=== PATIENT | male | born 1955 | race Caucasian/White ===

== ENCOUNTER 2019-04-19 09:22 | Outpatient (CLI) | payer BC, SELFPAY ==
--- NOTE | 2019-04-19 09:23 | XRR_ITS ---
PROCEDURE INFORMATION: Exam: XR Chest, 2 Views Exam date and time: 04/19/2019 9:50 AM Age: 63 years old Clinical indication: Condition or disease; Other: Copd; Prior surgery; Surgery date: 6+ months; Surgery type: RT lung TECHNIQUE: Imaging protocol: XR of the chest Views: 2 views. COMPARISON: No relevant prior studies available. FINDINGS: Lungs: COPD and interstitial disease. Poorly defined parenchymal density overlying the mid lateral aspect of the right lung. Pleural space: No significant pleural effusion. Heart/Mediastinum: No cardiomegaly. Surgical clips overlying the right suprahilar and hilar regions. Diaphragm: Asymmetric elevation right hemidiaphragm. Vasculature: Ectasia of the thoracic aorta. Bones/joints: Osteopenia, degenerative change, and cervical spine fusion. XR/XR chest 2V* [id number] IMPRESSION: 1. COPD and interstitial disease. 2. Poorly defined parenchymal density overlying the mid lateral aspect of the right lung.
== END 2019-04-19 09:23 | disposition home or self-care (01) ==
PROVIDERS: Family Provider Physician Assistant; PCP Family Medicine; Visit Provider Internal Medicine Critical Care Medicine
DX: J84.9 Interstitial pulmonary disease, unspecified (principal); J44.9 Chronic obstructive pulmonary disease, unspecified
CPT/HCPCS: 71046

== ENCOUNTER 2019-05-11 07:27 | Outpatient (CLI) | payer BC, SELFPAY ==
[2019-05-11 08:23] VITALS: O2SAT 93; O2SAT 95
== END 2019-05-11 07:28 | disposition home or self-care (01) ==
PROVIDERS: Family Provider Family Medicine; PCP Family Medicine; Visit Provider Internal Medicine Critical Care Medicine
DX: J44.9 Chronic obstructive pulmonary disease, unspecified (principal)
CPT/HCPCS: 94060; 94726; 94729; J7611

== ENCOUNTER 2019-06-23 07:27 | Outpatient (CLI) | payer BC, SELFPAY ==
--- NOTE | 2019-06-23 08:00 | MR_ITS ---
WS: [id number] MRI RIGHT SHOULDER NONCONTRAST TECHNIQUE: Sagittal T2, coronal T1, T2 and proton density imaging. Axial gradient PDE imaging. CLINICAL INFORMATION: RIGHT ROTATOR CUFF SPRAIN COMPARISON: None. FINDINGS: Moderate hypertrophic changes at the AC joint. Mild downsloping of the acromion. Subacromial spurring . Narrowing of the subacromial space. High-grade full-thickness tear involving the infraspinatus with retraction to the level of the glenoh umeral joint. No normal infraspinatus fibers visualized distally. Diffuse edema involving the infrasp inatus. Anterior supraspinous fibers and distal tendon are intact. Dorsal supraspinatus fibers demons trate high-grade tear contiguous with the high-grade infraspinatus tear. Normal subscapularis tendon distally which appears intact. Small amount of fluid in the subcoracoid b ursa. Biceps tendon is intact within the bicipital groove. Normal biceps labral anchor. Tendinopathy involving the intra-articular portion of the biceps tendon with T2 signal normality. Glenoid labrum a ppears grossly intact. Degenerative fraying of the glenoid labrum. MR/MR shoulder RT wo con* [id number] IMPRESSION: 1. High-grade full-thickness tear involving the infraspinatus with retraction to the level of the glenohumeral joint. 2. Additional high-grade tear involving the dorsal supraspinatus fibers. Anter ior supraspinatus tendon fibers are intact. 3. Teres minor and subscapularis appear intact 4. Normal biceps tendon in the bicipital groove. 5. Tendinopathy involving the intra-articular biceps tendon. 6. Glenoid labrum appears grossly intact. 7. Advanced degenerative changes involving the AC joint with downsloping of th e acromion and undersurface spurring. Advanced loss of the subacromial space
== END 2019-06-23 07:28 | disposition home or self-care (01) ==
LOC: RADSHAW 07:32
PROVIDERS: Family Provider Family Medicine; PCP Family Medicine; Visit Provider Orthopaedic Surgery
DX: M75.101 Unspecified rotator cuff tear or rupture of right shoulder, not specified as traumatic (principal); M19.011 Primary osteoarthritis, right shoulder
CPT/HCPCS: 73221

== ENCOUNTER 2019-07-02 05:25 | Day surgery (SDC) | payer BC, SELFPAY ==
[2019-07-01 15:02] VITALS: BMI 25.1
[2019-07-02] VITALS (8 sets, daily range): BP systolic 122–139; BP diastolic 81–99; PULSE 53–86; RESP 13–22; TEMP 36.1–36.6; O2SAT 95–99
--- NOTE | 2019-07-02 06:24 | ANES.PREANE2 ---
Pre-Anesthetic Assessment Pre-Anesthetic Assessment: Height/Weight: Height 1.78 m Weight 79.379 kg Preop Diagnosis: Right rotator cuff Proposed Procedure: Operation Date: 07/02/19 07:00 Proposed Procedures p Right Shoulder Arthroscopy with subacromial decompression and other indicated proedures [id number] S43.421A(Right) - Jayden Benavides MD s Rotator Cuff Repair(Right) - Jayden Benavides MD Last intake: Intake Last Liquid Date 07/01/19 Last Liquid Time 18:00 Last Solid Date 07/01/19 Last Solid Time 18:00 Social: Packs per day: 1/2 Pack years: 25 Airway: Dentition: False Additional comments: upper dentures bottoms implants Pulmonary: Pulmonary: COPD Comments: breathing feels good Metabolic: Metabolic: DM Comments: off meds Musc/skel: Musc/skel: Lower Back Pain Comments: nonradiating Anesthetic Plan: ASA status: 3 Anesthesia: General and Regional (specify below) PFSH Anesthesia PFSH: Social History Smoking and tobacco status: current every day smoker cigarettes Packs smoked per day: 0.5 Years cigarettes smoked: 46 [ Other cigarette details: Pt has reduced smoking from 1.5 packs ] Quit status (tobacco): has tried quititng Number of times tried to quit tobacco: 1 Alcohol intake: former Lives independently: Yes Household members: none Housing: House Marital status: Number of children: 3 Number of grandchildren: 4 Highest education level completed: High School Graduate service: No Current occupational status: retired and disabled Pets and animals: Yes 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
[2019-07-02] MEDS: sodium chloride 0.9% 1,000 ML 30 ML IV (06:30)
[2019-07-02] MEDS: midazolam 1 mg/mL INJ 5 ML 5 MG IVP (06:36)
[2019-07-02] MEDS: fentaNYL 50 mcg/mL INJ 2mL 100 MCG IVP (06:36)
--- NOTE | 2019-07-02 06:51 | W.PM.OPSUD ---
Surgery/Procedure H&P Update DATE OF PROCEDURE: July 02, 2019 DATE H&P PERFORMED: 06/29/19 H&P UPDATE INFORMATION: I have reviewed H&P completed within last 30 days and No changes to prior documentation PREOP DIAGNOSIS: Right rotator cuff PRIMARY INDICATION FOR PROCEDURE: Tear right rotator cuff with pain and weakness PLANNED PROCEDURE: Operation Date: 07/02/19 07:00 Proposed Procedures p Right Shoulder Arthroscopy with subacromial decompression and other indicated proedures [id number] S43.421A(Right) - Jayden Benavides MD s Rotator Cuff Repair(Right) - Jayden Benavides MD
--- NOTE | 2019-07-02 06:55 | ANES.PROC ---
Anesthesia Procedures Procedure/Date: 07/02/19 Right innerscalene Block Procedure Narrative: R&B's of right innerscalene block disc'd. Verbal and written consent obtained. Versed 2+1+1+1mg, Fentanyl 50+25+25ug. US utilized to identify right innerscalene space, MOE. Nerve stimulator at 0.8mAMPS. 30cc total volume Ropvicaine 0.5% + Lido 2% with epi in 5cc increments without problems/complications. Nerve Block ^: Nerve Block 1: Main Anesthesia: general anesthesia Time Out Performed: Yes Consent: requested by attending/covering physician, from patient, risks and benefits reviewed and patient agrees to proceed Nerve block location: interscalene Anesthesia monitors applied: pulse oximetry and oxygen Nerve block position: supine Anesthetic Used: lidocaine 2%, ropivicaine 0.5% and with epi Amount of anesthesia used (mL): 30 Ultrasound used to: visualize and ID interscalene groove Nerve Stimulator Used?: Yes Interscalene/Femoral BLK: 2 stimuplex 22 g needle used for position and inplane approach Injection: neg aspiration of heme Patient Tolerated Procedure: well Complications: none
--- NOTE | 2019-07-02 07:46 | SUR.OPER ---
1064 - Pt's significant other notified of surgery start via her cell phone.
--- NOTE | 2019-07-02 08:52 | SUR.OPER ---
0851 - Pt's significant other updated on surgery progress and pt status via her cell phone.
--- NOTE | 2019-07-02 09:17 | P.OP_ITS ---
Operative Report Date of procedure: July 02, 2019 Pre-op Diagnosis: Right rotator cuff Post-op diagnosis: same Post-op Findings: Large tear right rotator cuff involving supraspinatus and infraspinatus, type II acromion Procedure Done: Arthroscopic repair right rotator cuff with bio inductive implant, right subacromial decompression Pathology: none sent Anesthesia: General and Nerve Block (Interscalene) Estimated blood loss (mL): 25 Complications: None Findings: The patient had a large tear of his supraspinatus and infraspinatus tendons with retraction approximately 2 cm overall tendon quality was very good. He had prominent anterior spurring of his acromion and a loose fragment over the anterior acromion possibly a mall os acromiale Condition: stable Disposition: PACU Brief History: The patient is a 63-year-old male who sustained a traumatic tear of his right rotator cuff in October. He had persistent pain and inability to abduct his arm away from his body. MRI confirmed a large rotator cuff tear. 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 He was given 2 g of Ancef and positioned in the lateral position with his right arm initially in 15 pounds of traction. He was prepped and draped the usual fashion and a timeout was performed. The shoulder was initially entered through a posterior portal 2 cm inferior medial to the posterior corner of the acromion a scope cannula and trocar were driven into the glenohumeral joint. The large tear of the rotator cuff was identified. The glenohumeral joint was found to be free of degenerative changes. His biceps tendon appeared healthy and stable in the bicipital groove. The scope was then redirected into the subacromial space and anterior and lateral working portals were fashioned. Extensive bursal tissue was removed with the Ballesteros and Nephew Werewolf probe. The tear involving the supraspinatus and infraspinatus tendon revealed very reasonable remaining margins. With a grasper could be brought to the medial edge of the greater tuberosity. The bursal and articular surface of the rotator cuff were debrided and mobilized. The Ballesteros and Nephew Werewolf probe was used to outline the leading edge of the acromion. A small unstable ossicle of bone was identified, possibly a os acromiale he. Utilizing a 5 5 acromionizer this unstable ossicle of bone was removed and prominent bone removed from the remaining anterior edge. Attention was then focused on the rotator cuff. Utilizing incisor shaver the tuberosity was debrided to trabecular bone. Through a small posterior lateral pole: A 4.5 mm Ballesteros and Nephew Helicoil anchor with Ultratape suture was placed. The first pass suture passer was used to shuttle each limb of Ultratape through the rotator cuff approximately 8 mm from the edge of the tendon and approximately a centimeter apart. 2 additional anchors were placed 1 cm apart passing anteriorly and sutures passed in identical fashion. The sutures from each anchor were secured drawing the medial rotator cuff to the medial debrided bone. Next to the lateral portal 1 suture from the posterior and 1 from the mid dle medial row anchor were grasped. A Ballesteros and Nephew Multifix anchor was placed centrally and laterally and those of sutures secured drawing the more lateral rotator cuff to bone. This was repeated with a second Ballesteros and Nephew Multifix anchor more anteriorly between the second and third medial row anchor. Next to the lateral portal a Ballesteros and Nephew Regeneten patch was passed. It was fixed laterally with 2 bone adiel and anteriorly, posteriorly coming immediately with anchors. The shoulder was irrigated with saline. Portals were closed with 3-0 Prolene. Sterile dressings were applied. The patient was extubated taken recovery in stable condition.
[2019-07-02] MEDS: oxyCODONE-APAP 5-325 mg Tablet 1 TAB PO (09:57)
== END 2019-07-02 11:15 | disposition home or self-care (01) ==
PROVIDERS: Family Provider Family Medicine; PCP Family Medicine; Visit Provider Orthopaedic Surgery
PROC: (CPT 29805; principal; 2019-07-02 07:00)
PROC: (CPT 29826; 2019-07-02 07:00)
DX: M75.101 Unspecified rotator cuff tear or rupture of right shoulder, not specified as traumatic (principal); F17.210 Nicotine dependence, cigarettes, uncomplicated; J44.9 Chronic obstructive pulmonary disease, unspecified; E11.9 Type 2 diabetes mellitus without complications; Z82.49 Family history of ischemic heart disease and other diseases of the circulatory system; Z83.3 Family history of diabetes mellitus
CPT/HCPCS: 29826; 29827; 12345; 96374; 96375; C1713; J0690; J2001; J2250; J2370; J2405; J2704; J2795; J3010; J3490; J7030

== ENCOUNTER 2019-07-26 22:05 | Emergency (ER) | payer BC, SELFPAY ==
[2019-07-26 22:12] VITALS: BP 140/92; PULSE 86; RESP 20; TEMP 36.9; O2SAT 97; BMI 25.1
[2019-07-26 22:21] VITALS: BP 140/92; PULSE 94; RESP 18; O2SAT 95
--- NOTE | 2019-07-26 22:30 | XRR_ITS ---
PROCEDURE INFORMATION: Exam: XR Chest, 1 View Exam date and time: 07/26/2019 10:45 PM Age: 64 years old Clinical indication: Shortness of breath; Additional info: SOB TECHNIQUE: Imaging protocol: XR of the chest Views: 1 view. COMPARISON: CR XR chest 2V* [id number] 04/19/2019 9:44 AM FINDINGS: Lungs: Bibasilar atelectasis versus minimal infiltrate. Pleural space: Unremarkable. No pleural effusion. No pneumothorax. Heart/Mediastinum: Unremarkable. No cardiomegaly. Bones/joints: Unremarkable. XR/XR chest 1V portable [id number] IMPRESSION: Bibasilar atelectasis versus minimal infiltrate.
--- NOTE | 2019-07-26 22:30 | ECG_ITS ---
Measurements Intervals [place] Rate: 85 P: -40 ID: [id number] QRS: -1 QRSD: 87 T: 5 QT: 337 QTc: 403 SINUS RHYTHM WITH OCCASIONAL VENTRICULAR PREMATURE COMPLEXES POSSIBLE RIGHT VENTRICULAR CONDUCTION DELAY [RSR (QR) IN V1/V2] MODERATE ST DEPRESSION [0.05+ mV ST DEPRESSION] Compared to ECG 01/19/2018 09:55:33 Ventricular premature complex(es) now present ST (T wave) deviation now present Electronically Signed On 07-27-2019 10:54:13 CDT by Kassidy Pedroza M.D. [id number]
--- NOTE | 2019-07-26 22:31 | ED_ITS ---
HPI - SOB/Dyspnea General: Chief Complaint: Shortness of Breath/Dyspnea Stated Complaint: sob Time Seen by Provider: 07/26/19 22:06 Source: patient Mode of arrival: ambulatory Limitations: no limitations History of Present Illness: HPI Narrative: 64-year-old male who has a history of asthma states he has had coughing over the last 4 days causing worsening shortness of breath. Patient states he ran out of his Spiriva this morning. He denies any fever or chest pain. He states that he has been under stress due to issues with his girlfriend and has been smoking more as well. He did have recent rotator cuff surgery 4 weeks ago. MD elicited complaint: shortness of breath and cough Pertinent past history: asthma Onset (ago): day(s) Timing: intermittent Severity: moderate Exacerbating factors: nothing Relieving factors: bronchodilators Known history of: asthma Associated symptoms: Deny abdominal pain, chest pain, fever(s), nausea or vomiting Review of Systems Const: Denies: fever, chills, body aches or change in appetite Eyes: Denies: blurry vision or eye discomfort ENMT: Denies: throat pain or dental pain Card: Denies: chest pain Resp: Reports: shortness of breath and wheezing GI: Denies: abdominal pain, nausea, vomiting or diarrhea : Denies: painful urination Musc: Denies: neck pain or back pain Skin/Breast: Denies: rash Neuro: Denies: headache Psych: Denies: depression Jamari/Lymph: Denies: easy bruising All/Imm: Denies: hives PFSH ED PFSH: Medical History COPD (chronic obstructive pulmonary disease) Diabetes Tobacco abuse Surgical History H/O neck surgery H/O: vasectomy History of ankle surgery History of dental surgery History of facial surgery History of lung biopsy S/P lobectomy of lung Family History Father Cancer Hypertension Mother Diabetes Brother Diabetes Sister Diabetes Father Cancer Prostate Social History Smoking and tobacco status: light tobacco smoker cigarettes Packs smoked per day: 0.5 Years cigarettes smoked: 46 [ Other cigarette details: Pt has reduced smoking from 1.5 packs ] Quit status (tobacco): has tried quititng Number of times tried to quit tobacco: 1 Alcohol intake: former Lives independently: Yes Household members: none Housing: House Marital status: Number of children: 3 Number of grandchildren: 4 Highest education level completed: High School Graduate service: No Current occupational status: retired and disabled Pets and animals: Yes 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 History of recent travel: No Leisure activites: hunting and fishing Current gender identity: Male Dian/Buddhist: Advent Physical Exam Const: COMMON NORMALS: no apparent distress, oriented x3 and healthy appearing HENMT: COMMON NORMALS: normocephalic and head/scalp atraumatic HEAD & SCALP: normocephalic and atraumatic Eye: COMMON NORMALS: PERRL and EOMs intact bilaterally PUPIL: Yes PERRL Neck/C-Spine: COMMON NORMALS: full ROM and supple Chest: COMMONS NORMALS: inspection of chest normal and palpation of chest normal Resp: COMMON NORMALS: normal respiratory effort, no retractions, no use of accessory muscles and clear to auscultation bilaterally AUSCULTATION: clear to auscultation bilaterally and wheezes Cardio: COMMON NORMALS: regular rate, regular rhythm and no murmurs RATE: regular rate RHYTHM: regular rhythm GI: COMMON NORMALS: normal to inspection, nondistended, normoactive bowel sounds, soft to palpation, non-tender and no masses PALPATION: Yes soft Extremity: COMMON NORMALS: normal to inspection and full ROM Neuro: COMMON NORMALS: oriented x3, moves all extremities and no focal motor deficits Psych: COMMON NORMALS: mental status grossly normal, thought process normal and cooperative THOUGHT PROCESS: normal thought process Skin: COMMON NORMALS: no rashes or lesions noted and no wounds GENERAL SKIN EXAM: no rashes or lesions noted Course Vital Signs: Vital signs: Vital Signs Temperature 98.5 F 07/26/19 22:12 Pulse Rate 86 07/26/19 23:30 Respiratory Rate 16 07/26/19 23:30 Blood Pressure 127/84 07/26/19 23:30 Pulse Oximetry 95 07/26/19 23:30 MDM - SOB/Dyspnea MDM Narrative: Medical decision making narrative: Patient presents here with cough along with dyspnea likely bronchitis and possible pneumonia. Will refill his Spiriva and prescribe him albuterol along with doxycycline. Patient has no signs of cardiac cause or pulmonary embolism. Patient is stable for discharge and is to follow-up primary care doctor in 3 to 5 days and return to the ER if worsening. He understands and agrees to plan. Lab Data: Labs: Lab Results 07/26/19 07/26/19 Range/Units 23:30 23:30 WBC 8.9 (4.0-10.0) 10^3/ uL RBC 4.88 (4.1-5.3) 10^6/u L Hgb 13.5 (11.7-16.6) g/dL Hct 41.8 L (42.0-52.0) % MCV 85.7 (80-94) fL MCH 27.7 L (28.0-34.0) pg MCHC 32.3 (30.0-36.0) g/dL RDW 13.5 (12.1-15.1) % Plt Count 186 (130-400) 10^3/c mm MPV 8.9 (7.4-10.4) fL Neut % (Auto) 52.3 % Lymph % (Auto) 37.1 % Putnam % (Auto) 9.8 % Eos % (Auto) 0.3 % Baso % (Auto) 0.3 % Neut # (Auto) 4.6 (1.8-7.7) 10^3/u L Lymph # (Auto) 3.3 (0.8-4.8) 10^3/u L [place]nam # (Auto) 0.9 (0.2-0.9) 10^3/u L Eos # (Auto) 0.0 (0.0-0.8) 10^3/u L Baso # (Auto) 0.0 (0.0-0.1) 10^3/u L Nucleated RBC % (a uto) 0 % Nucleated RBCs # 0.0 /100WBC Sodium 132 L (136-145) mmol/L Potassium 4.6 (3.5-5.1) mmol/L Chloride 99 (98-107) mmol/L Carbon Dioxide 23 (22-29) mmol/L Anion Gap 14.6 (5-19) BUN 18 (8-23) mg/dL Creatinine 0.6 L (0.7-1.2) mg/dL GFR Calculation 136.5 H (90-130) mL/min Glucose 122 H (65-115) mg/dL Calculated Osmolal ity 272 L (285-295) mOsm/k g Calcium 9.4 (8.5-10.5) mg/dL NT-Pro-B Natriuret Pep 58 (0-125) pg/mL Imaging Data^: CXR: Radiologist's impression: [address] [address] XRay Report Signed Patient: Gregg Babcock Unit #: [id number] : 1955 Age/Sex: 64 / M ADM Date: 07/26/19 Loc: ER Room/Bed: Attending Dr: Ordering Provider/Ordering MD: Kyle Saleh MD Date of Service: 07/26/19 Procedure(s): XR chest 1V portable [id number] Accession Number(s): [id number] Report Number: [id number] PROCEDURE INFORMATION: Exam: XR Chest, 1 View Exam date and time: 07/26/2019 10:45 PM Age: 64 years old Clinical indication: Shortness of breath; Additional info: SOB TECHNIQUE: Imaging protocol: XR of the chest Views: 1 view. COMPARISON: CR XR chest 2V* [id number] 04/19/2019 9:44 AM FINDINGS: Lungs: Bibasilar atelectasis versus minimal infiltrate. Pleural space: Unremarkable. No pleural effusion. No pneumothorax. Heart/Mediastinum: Unremarkable. No cardiomegaly. Bones/joints: Unremarkable. XR/XR chest 1V portable [id number] IMPRESSION: Bibasilar atelectasis versus minimal infiltrate. EKG Data^: EKG 1: Attestation: I personally reviewed and interpreted this EKG as follows: EKG Interpretation Date: 07/26/19 EKG interpretation time: 22:55 Interpretation: nsr hr [address] or t wve abnormalities qrs 87 qtc 380 Discharge Plan Discharge Patient Disposition: Home, Self-Care Clinical Impression: Bronchitis Condition: Stable Prescriptions: New doxycycline hyclate 100 mg capsule 100 mg PO BID 10 Days Qty: 20 RF: 0 Spiriva Respimat 2.5 mcg/actuation mist 2 inh INHALATION DAILY Qty: 4 RF: 0 albuterol sulfate 90 mcg/actuation HFA aerosol inhaler 2 inh INHALATION Q6H PRN (Reason: shortness of breath or wheezing) Qty: 8 RF: 0 Discharge Orders: Discharge Order (Routine); Ordered 07/27/19 Ordered By: Kyle Saleh Referrals: German Oakes MD [Primary Care Provider] - 4-7 days Discharge Diet: Advance as tolerated Discharge Activity: Resume usual activity Patient Instructions: Acute Bronchitis (ED) Discharge Date/Time: 07/27/19 00:26 Coding Level of Care Code ED [employer] Technician for Chg Fwd Exam Comprehensive
[2019-07-26 22:36] VITALS: O2SAT 96
[2019-07-26 23:01] VITALS: PULSE 80; RESP 18; O2SAT 96
[2019-07-26] MEDS: ipratropium-albuterol 3 mL Neb INHALATION (23:01)
[2019-07-26 23:05] VITALS: PULSE 83
--- NOTE | 2019-07-26 23:06 | PC.NURSE ---
care and report given
[2019-07-26 23:30] VITALS: BP 127/84; PULSE 86; RESP 16; O2SAT 95
[2019-07-26 23:40] LABS: Basophils % 0.3 %; Eosinophils % 0.3 %; Hematocrit 41.8 % (42.0-52.0); Hemoglobin 13.5 g/dL (11.7-16.6); Lymphocytes # 3.3 10^3/uL (0.8-4.8); Lymphocytes % 37.1 %; Mean Corpuscular HGB Conc 32.3 g/dL (30.0-36.0); Mean Corpuscular Hemoglobin 27.7 pg (28.0-34.0); Mean Corpuscular Volume 85.7 fL (80-94); Mean Platelet Volume 8.9 fL (7.4-10.4); Monocytes # 0.9 10^3/uL (0.2-0.9); Monocytes % 9.8 %; Neutrophils # 4.6 10^3/uL (1.8-7.7); Neutrophils % 52.3 %; Nucleated Red Blood Cells % 0 %; Platelet Count 186 10^3/cmm (130-400); Red Blood Count 4.88 10^6/uL (4.1-5.3); Red Cell Distribution Width 13.5 % (12.1-15.1); White Blood Count 8.9 10^3/uL (4.0-10.0)
[2019-07-26] MEDS: doxycycline 100 mg Tablet PO (23:59)
[2019-07-27 00:02] LABS: NT Pro B Type Natriuretic Pept 58 pg/mL (0-125)
[2019-07-27 00:12] LABS: Anion Gap 14.6 (5-19); Blood Urea Nitrogen 18 mg/dL (8-23); Calcium 9.4 mg/dL (8.5-10.5); Carbon Dioxide 23 mmol/L (22-29); Chloride 99 mmol/L (98-107); Glomerular Filtration Rate 136.5 mL/min (90-130); Glucose 122 mg/dL (65-115); Osmolality Calculated 272 mOsm/kg (285-295); Potassium 4.6 mmol/L (3.5-5.1); Sodium 132 mmol/L (136-145)
[2019-07-27 00:21] VITALS: BP 136/99; PULSE 92; RESP 18; O2SAT 95
== END 2019-07-27 00:26 | disposition home or self-care (01) ==
PROVIDERS: Emergency Provider Emergency Medicine; Family Provider Family Medicine; PCP Family Medicine
DX: J20.9 Acute bronchitis, unspecified (principal); J43.9 Emphysema, unspecified; E11.9 Type 2 diabetes mellitus without complications; F17.210 Nicotine dependence, cigarettes, uncomplicated
CPT/HCPCS: 12345; 36415; 71045; 80048; 83880; 85025; 93005; 94640; 99283; 99284

== ENCOUNTER 2019-08-17 07:24 | Outpatient (RCR) | payer BC, SELFPAY | END 2019-09-12 23:59 | disposition home or self-care (01) | LOC: SPT 07:24 | PROVIDERS: Family Provider Family Medicine; PCP Family Medicine; Referring Provider Orthopaedic Surgery; Visit Provider Orthopaedic Surgery | DX: Z47.89 Encounter for other orthopedic aftercare (principal); M25.611 Stiffness of right shoulder, not elsewhere classified; M25.511 Pain in right shoulder | CPT/HCPCS: 97110; 97162 ==

== ENCOUNTER 2019-09-13 06:00 | Outpatient (RCR) | payer BC, SELFPAY | END 2019-10-12 23:59 | disposition home or self-care (01) | LOC: SPT 06:00 | PROVIDERS: PCP Family Medicine; Visit Provider Orthopaedic Surgery | DX: Z47.89 Encounter for other orthopedic aftercare (principal); Z98.890 Other specified postprocedural states | CPT/HCPCS: 97110 ==

== ENCOUNTER 2019-10-13 06:00 | Outpatient (RCR) | payer BC, SELFPAY | END 2019-10-21 23:00 | disposition home or self-care (01) | LOC: SPT 06:00 | PROVIDERS: PCP Family Medicine; Visit Provider Orthopaedic Surgery | DX: Z47.89 Encounter for other orthopedic aftercare (principal) | CPT/HCPCS: 97110 ==

== ENCOUNTER 2019-11-19 15:59 | Outpatient (CLI) | payer BC, SELFPAY ==
[2019-11-19 16:34] LABS: D Dimer 0.44 ug/mIFEU (0-0.59)
== END 2019-11-19 16:00 | disposition home or self-care (01) ==
LOC: LAB 16:01
PROVIDERS: PCP Family Medicine; Visit Provider Nurse Practitioner Family
DX: R06.02 Shortness of breath (principal)
CPT/HCPCS: 85378

== ENCOUNTER 2019-11-19 22:06 | Emergency (ER) | payer BC, SELFPAY ==
[2019-11-19 22:40] VITALS: BP 124/84; PULSE 90; RESP 24; TEMP 36.4; O2SAT 98; BMI 25.1
[2019-11-19 22:56] VITALS: BP 135/90; PULSE 79; RESP 20; O2SAT 100
--- NOTE | 2019-11-19 23:28 | XRR_ITS ---
PROCEDURE INFORMATION: Exam: XR Chest, 1 View Exam date and time: 11/20/2019 12:04 AM Age: 64 years old Clinical indication: Shortness of breath; Patient HX: Copd; Additional info: SOB TECHNIQUE: Imaging protocol: XR of the chest Views: 1 view. COMPARISON: CR XR chest 1V portable [id number] 07/26/2019 10:34 PM FINDINGS: Lungs: There are mildly increased peribronchial markings present bilaterally and increased interstitial opacities are seen, findings that could represent bilateral bronchitis and pneumonitis. Some strandy opacities are seen in the lower hemithoraces likely representing atelectasis. Pleural space: Unremarkable. No pleural effusion. No pneumothorax. Heart/Mediastinum: Unremarkable. No cardiomegaly. Bones/joints: Unremarkable. XR/XR chest 1V portable [id number] IMPRESSION: 1. Mildly increased peribronchial markings and interstitial markings could represent bilateral bronchitis and pneumonitis. 2. Strandy opacities in the lower hemithoraces likely represents atelectasis.
--- NOTE | 2019-11-19 23:30 | ECG_ITS ---
[facility] Test Date: 2019-11-19 Pat Name: Gregg Babcock Department: Room: Gender: Male Patient Admitting Representative: : 1955 Requested By: Cuong Rajput Order Number: [id number] Christy MD: Kassidy Pedroza M.D. Measurements Intervals [place] Rate: 78 P: 52 TN: 174 QRS: -11 QRSD: 88 T: 48 QT: 375 QTc: 429 Interpretive Statements SINUS RHYTHM WITH OCCASIONAL VENTRICULAR PREMATURE COMPLEXES POSSIBLE LEFT ATRIAL ENLARGEMENT [-0.1mV P WAVE IN V1/V2] NONSPECIFIC T-WAVE ABNORMALITY Compared to ECG 07/26/2019 22:42:16 T-wave abnormality now present ST (T wave) deviation no longer present Electronically Signed On 11-20-2019 12:42:16 CDT by Kassidy Pedroza M.D. [id number]
[2019-11-19 23:40] VITALS: PULSE 88; RESP 20; O2SAT 96
[2019-11-19] MEDS: ipratropium-albuterol 3 mL Neb INHALATION (23:40)
[2019-11-19 23:45] VITALS: PULSE 86
[2019-11-19 23:48] VITALS: BP 135/90; PULSE 86; RESP 16; O2SAT 99
[2019-11-19 23:53] LABS: ABG PCO2 28.1 mmHg (35-45); ABG PH Result 7.51 (7.35-7.45); Arterial Blood Gas Hematocrit 44.3 % (42-52); Base Excess ABG 0.5 mmol/L (-2.0-2.0); Blood Gas Allen Test Pos; Blood Gas Operator Identificat HARKR; Blood Gas Sample Site Radial, left; Blood Gas Sample Type Arterial; Carboxyhemoglobin 0.6 %THgb (0.4-20.1); HCO3 ABG 22.4 mmol/L (22-26); HGB O2 Sat 98.1 % (95-100); Methemoglobin 0.8 % (0.4-1.5); Oxygen Device ROOM AIR; Total Hemoglobin 14.5 g/dL (14-18)
[2019-11-19 23:57] LABS: Basophils # 0.1 10^3/uL (0.0-0.1); Basophils % 0.5 %; Eosinophils % 0.4 %; Hematocrit 44.2 % (42.0-52.0); Hemoglobin 14.2 g/dL (11.7-16.6); Lymphocytes # 4.4 10^3/uL (0.8-4.8); Lymphocytes % 41.2 %; Mean Corpuscular HGB Conc 32.1 g/dL (30.0-36.0); Mean Corpuscular Volume 84.2 fL (80-94); Mean Platelet Volume 9.1 fL (7.4-10.4); Monocytes # 0.8 10^3/uL (0.2-0.9); Monocytes % 7.5 %; Neutrophils % 49.9 %; Nucleated Red Blood Cells % 0 %; Platelet Count 224 10^3/cmm (130-400); Red Blood Count 5.25 10^6/uL (4.1-5.3); Red Cell Distribution Width 14.9 % (12.1-15.1); White Blood Count 10.6 10^3/uL (4.0-10.0)
[2019-11-20 00:19] LABS: Lactic Sepsis W/Reflex 1.6 mmol/L (0.5-2.2)
[2019-11-20 00:20] LABS: Troponin(5th) Baseline 15 ng/L (0-15)
[2019-11-20 00:29] LABS: Alanine Aminotransferase 23 U/L (0-41); Albumin Level 4.3 g/dL (3.5-5.2); Alkaline Phosphatase 88 IU/L (40-130); Anion Gap 14.8 (5-19); Aspartate Amino Transferase 23 U/L (0-40); Blood Urea Nitrogen 15 mg/dL (8-23); Calcium 9.2 mg/dL (8.5-10.5); Carbon Dioxide 25 mmol/L (22-29); Chloride 101 mmol/L (98-107); Globulin 3.5 g/dL (1.3-4.6); Glomerular Filtration Rate 85.5 mL/min (90-130); Glucose 121 mg/dL (65-115); NT Pro B Type Natriuretic Pept 40 pg/mL (0-125); Osmolality Calculated 280 mOsm/kg (285-295); Potassium 4.8 mmol/L (3.5-5.1); Sodium 136 mmol/L (136-145); Total Bilirubin 0.3 mg/dL (0.15-1.2); Total Protein 7.8 g/dL (6.6-8.7)
--- NOTE | 2019-11-20 00:30 | CTR_ITS ---
PROCEDURE INFORMATION: Exam: CT Angiography Chest With Contrast Exam date and time: 11/20/2019 12:46 AM Age: 64 years old Clinical indication: Shortness of breath; Additional info: SOB TECHNIQUE: Imaging protocol: Computed tomographic angiography of the chest with intravenous contrast. 3D rendering: MIP and/or 3D reconstructed images were created by the technologist. Radiation optimization: All CT scans at this facility use at least one of these dose optimization techniques: automated exposure control; mA and/or kV adjustment per patient size (includes targeted exams where dose is matched to clinical indication); or iterative reconstruction. Contrast material: 654.61; Contrast volume: 95 ml; Contrast route: INTRAVENOUS (IV); COMPARISON: CT chest [facility] [id number] 04/26/2019 2:04 PM RADIATION DOSE METRICS: Total DLP (mGy-cm): 654.61 FINDINGS: Pulmonary arteries: Normal. No pulmonary emboli. Aorta: Unremarkable. No aortic aneurysm. No aortic dissection. Lungs: There is a background of centrilobular and subpleural emphysematous changes. Reticular opacities are seen in the right lung base compatible with pulmonary fibrosis. Some patchy ground-glass opacities are present in the lung bases bilaterally possibly representing pulmonary fibrosis as well although superimposed basilar pneumonitis cannot be entirely excluded. Pleural space: Unremarkable. No pneumothorax. No pleural effusion. Heart: Unremarkable. No cardiomegaly. No pericardial effusion. Lymph nodes: Unremarkable. No enlarged lymph nodes. Bones/joints: There is mild compression of the superior endplate of T6, T11 and L1 vertebral bodies. Soft tissues: Unremarkable. CT/CT angio chest PE [facility] [id number] IMPRESSION: 1. There is no evidence for pulmonary emboli. 2. Background of severe centrilobular and subpleural emphysematous change and bilateral basilar pulmonary fibrosis, right more prominent than left. 3. Subtle patchy ground-glass opacities in the lower hemithoraces could represent pulmonary fibrosis as well although superimposed basilar pneumonitis cannot be excluded. Radiation Dose CTDIVOL = (mGy): DLP = 654.61 (mGy-cm)
[2019-11-20] MEDS: LORazepam 2 mg/mL INJ 1 mL 1 MG IVP (00:46)
[2019-11-20 01:03] VITALS: BP 135/90; PULSE 81; RESP 16; O2SAT 94
[2019-11-20] MEDS: iohexol 350 mg/mL 100 mL Btl IV (01:24)
--- NOTE | 2019-11-20 01:30 | ECG_ITS ---
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 Measurements Intervals [place] Rate: 88 P: 44 [place]: 166 QRS: -20 QRSD: 89 T: 51 QT: 368 QTc: 446 Interpretive Statements SINUS RHYTHM POSSIBLE LEFT ATRIAL ENLARGEMENT [-0.1mV P WAVE IN V1/V2] NONSPECIFIC T-WAVE ABNORMALITY Compared to ECG 11/19/2019 23:45:14 Ventricular premature complex(es) no longer present T-wave abnormality still present Electronically Signed On 11-20-2019 12:50:12 CDT by Kassidy Pedroza M.D. [id number]
[2019-11-20 02:18] VITALS: BP 135/90; PULSE 90; RESP 18; O2SAT 96
[2019-11-20 03:28] VITALS: BP 132/89; PULSE 78; RESP 16; O2SAT 99
--- NOTE | 2019-11-20 04:27 | W.ED.SOB ---
HPI - SOB/Dyspnea General: Chief Complaint: Shortness of Breath/Dyspnea Stated Complaint: ams, sob, Time Seen by Provider: 11/19/19 22:56 History of Present Illness: HPI Narrative: 64-year-old male with a history of COPD. He presents with shortness of breath increasing over the last couple of days. Has had a cough. He has not had fever. He has been using his albuterol some without much improvement. He was seen yesterday at [facility], and had a rapid COVID test, which was negative. MD elicited complaint: shortness of breath Pertinent past history: COPD Onset (ago): day(s) Timing: progressively worsening Severity: moderate Exacerbating factors: exertion and stress Relieving factors: nothing Known history of: COPD Associated symptoms: Reports chest congestion and cough; Deny chest pain, dizziness, fever(s), nausea or palpitations Review of Systems Const: Denies: fever(s) Eyes: Denies: change in vision ENMT: Denies: swelling of lips/tongue, change in hearing, epistaxis or sinus pain Card: Denies: chest pain, palpitations or irregular heart rhythm Resp: Reports: chest congestion GI: Denies: nausea : Denies: difficulty urinating or hematuria Musc: Denies: neck pain, back pain or joint warmth Skin/Breast: Denies: rash, pruritus or erythema Neuro: Denies: headache(s), dizziness or vertigo Psych: Denies: anxiety PFS ED PFSH: Medical History (Updated 11/20/19 @ 03:16 by Cuong Godfrey DO) COPD (chronic obstructive pulmonary disease) Diabetes Tobacco abuse Surgical History H/O neck surgery H/O: vasectomy History of ankle surgery History of dental surgery History of facial surgery History of lung biopsy S/P lobectomy of lung Family History Father Cancer Hypertension Mother Diabetes Brother Diabetes Sister Diabetes Father Cancer Prostate Social History Smoking and tobacco status: light tobacco smoker cigarettes Packs smoked per day: 0.5 Years cigarettes smoked: 46 [ Other cigarette details: Pt has reduced smoking from 1.5 packs ] Quit status (tobacco): has tried quititng Number of times tried to quit tobacco: 1 Alcohol intake: former Lives independently: Yes Household members: none Housing: House Marital status: Number of children: 3 Number of grandchildren: 4 Highest education level completed: High School Graduate service: No Current occupational status: retired and disabled Pets and animals: Yes 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 History of recent travel: No Leisure activites: hunting and fishing Current gender identity: Male 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 Physical Exam Const: GENERAL APPEARANCE: well developed and anxious ORIENTATION/CONSCIOUSNESS: Yes oriented to person, Yes oriented to place and Yes oriented to time HENMT: COMMON NORMALS: normocephalic, external ears normal and Normal external nose present HEAD & SCALP: normocephalic FACE & SINUS: normal facial exam NOSE: Normal external nose present and No nasal discharge present EXTERNAL EAR: Yes external ears normal THROAT: posterior oropharynx normal; no peritonsillar mass Eye: COMMON NORMALS: Equal, round and reactive pupils present, EOMs intact bilaterally and conjunctivae normal EYELID: eyelids normal CONJUNCTIVA: Yes conjunctivae normal PUPIL: Yes Equal, round and reactive pupils present Neck/C-Spine: GENERAL: No tracheal deviation Chest: COMMONS NORMALS: normal inspection of the chest CHEST: No tenderness Resp: COMMON NORMALS: clear to auscultation bilaterally EFFORT & INSPECTION: No tachypneic, No respiratory distress, No retractions, No uses accessory muscles and No tracheal deviation AUSCULTATION: clear to auscultation bilaterally, no rhonchi, no wheezes and lung sounds not diminished Cardio: COMMON NORMALS: regular rate and regular rhythm RATE: regular rate RHYTHM: regular rhythm HEART SOUNDS: no murmurs PERIPHERAL PULSES: radial pulses present GI: INSPECTION: No abdominal distension AUSCULTATION: No Hyperactive bowel sounds present and No Hypoactive bowel sounds present PALPATION: No Guarding due to palpation present (GI) and No Rigid due to palpation PERCUSSION: no dullness to percussion and no tympanic to percussion Neuro: SENSORIUM/ORIENTATION: Yes oriented to person, Yes oriented to place and Yes oriented to time Psych: COMMON NORMALS: mental status grossly normal Skin: COMMON NORMALS: no rashes or lesions noted GENERAL SKIN EXAM: no rashes or lesions noted Course Vital Signs: Vital signs: Vital Signs Temperature 97.6 F 11/19/19 22:40 Pulse Rate 78 11/20/19 03:28 Respiratory Rate 16 11/20/19 03:28 Blood Pressure 132/89 11/20/19 03:28 Pulse Oximetry 99 11/20/19 03:28 MDM - SOB/Dyspnea MDM Narrative: Medical decision making narrative: 64-year-old male with a history of COPD. He presents short of breath. He was COVID tested which was negative, via rapid antigen testing. His chest x-ray was nondiagnostic. His d-dimer earlier in the day was negative. A CTA was performed, given his persistent shortness of breath and near tachycardia. His CT shows a peripheral pneumonitis. Because of this, repeat RNA based coronavirus testing was ordered. He is not overly hypoxic, but he is tachypneic. His blood gas shows mild hyperventilation. He is not required oxygen. He has gotten Solu-Medrol here. He will be treated for bronchitis. He was told to use his albuterol inhaler every 4 hours while awake for the next 48 hours, and he is given steroids and doxycycline. He knows to return for worsening symptoms. Lab Data: Labs: Lab Results 11/19/19 11/19/19 11/19/19 Range/Units 23:37 23:37 23:37 WBC 10.6 H (4.0-10.0) 10^3/ uL RBC 5.25 (4.1-5.3) 10^6/u L Hgb 14.2 (11.7-16.6) g/dL Hct 44.2 (42.0-52.0) % MCV 84.2 (80-94) fL MCH 27.0 L (28.0-34.0) pg MCHC 32.1 (30.0-36.0) g/dL RDW 14.9 (12.1-15.1) % Plt Count 224 (130-400) 10^3/c mm MPV 9.1 (7.4-10.4) fL Neut % (Auto) 49.9 % Lymph % (Auto) 41.2 % Cherry % (Auto) 7.5 % Eos % (Auto) 0.4 % Baso % (Auto) 0.5 % Neut # (Auto) 5.30 (1.8-7.7) 10^3/u L Lymph # (Auto) 4.4 (0.8-4.8) 10^3/u L Cherry # (Auto) 0.8 (0.2-0.9) 10^3/u L Eos # (Auto) 0.0 (0.0-0.8) 10^3/u L Baso # (Auto) 0.1 (0.0-0.1) 10^3/u L Nucleated RBC % (a uto) 0 % Nucleated RBCs # 0.0 /100WBC Specimen Type Sample Site ABG pH (7.35-7.45) ABG pCO2 (35-45) mmHg ABG pO2 (80.0-100.0) mmH g ABG HCO3 (22-26) mmol/L ABG Base Excess (-2.0-2.0) mmol/ L Erickson Test Hematocrit (42-52) % Hgb O2 Saturation (95-100) % Carboxyhemoglobin (0.4-20.1) %THgb Methemoglobin (0.4-1.5) % Total Hemoglobin (14-18) g/dL O2 Delivery Device Manufacturing Engineer ID Sodium 136 (136-145) mmol/L Potassium 4.8 (3.5-5.1) mmol/L Chloride 101 (98-107) mmol/L Carbon Dioxide 25 (22-29) mmol/L Anion Gap 14.8 (5-19) BUN 15 (8-23) mg/dL Creatinine 0.9 (0.7-1.2) mg/dL GFR Calculation 85.5 L (90-130) mL/min Glucose 121 H (65-115) mg/dL Calculated Osmolal ity 280 L (285-295) mOsm/k g Lactic Acid 1.6 (0.5-2.2) mmol/L Calcium 9.2 (8.5-10.5) mg/dL Total Bilirubin 0.3 (0.15-1.2) mg/dL AST 23 (0-40) U/L ALT 23 (0-41) U/L Alkaline Phosphata se 88 (40-130) IU/L Troponin T Baselin e (0-15) ng/L Troponin T 120 Min [place] (0-15) ng/L Delta Troponin T (0-10) ABS# NT-Pro-B Natriuret Pep 40 (0-125) pg/mL Total Protein 7.8 (6.6-8.7) g/dL Albumin 4.3 (3.5-5.2) g/dL Globulin 3.5 (1.3-4.6) g/dL 11/19/19 11/19/19 11/20/19 Range/Units 23:37 23:42 01:40 WBC (4.0-10.0) 10^3/ uL RBC (4.1-5.3) 10^6/u L Hgb (11.7-16.6) g/dL Hct (42.0-52.0) % MCV (80-94) fL MCH (28.0-34.0) pg MCHC (30.0-36.0) g/dL RDW (12.1-15.1) % Plt Count (130-400) 10^3/c mm MPV (7.4-10.4) fL Neut % (Auto) % Lymph % (Auto) % Cherry % (Auto) % Eos % (Auto) % Baso % (Auto) % Neut # (Auto) (1.8-7.7) 10^3/u L Lymph # (Auto) (0.8-4.8) 10^3/u L Cherry # (Auto) (0.2-0.9) 10^3/u L Eos # (Auto) (0.0-0.8) 10^3/u L Baso # (Auto) (0.0-0.1) 10^3/u L Nucleated RBC % (a uto) % Nucleated RBCs # /100WBC Specimen Type Arterial Sample Site Radial, left ABG pH 7.51 H (7.35-7.45) ABG pCO2 28.1 L (35-45) mmHg ABG pO2 129.0 H (80.0-100.0) mmH g ABG HCO3 22.4 (22-26) mmol/L ABG Base Excess 0.5 (-2.0-2.0) mmol/ L Erickson Test Pos Hematocrit 44.3 (42-52) % Hgb O2 Saturation 98.1 (95-100) % Carboxyhemoglobin 0.6 (0.4-20.1) %THgb Methemoglobin 0.8 (0.4-1.5) % Total Hemoglobin 14.5 (14-18) g/dL O2 Delivery Device Room air Manufacturing Engineer ID Harkr Sodium (136-145) mmol/L Potassium (3.5-5.1) mmol/L Chloride (98-107) mmol/L Carbon Dioxide (22-29) mmol/L Anion Gap (5-19) BUN (8-23) mg/dL Creatinine (0.7-1.2) mg/dL GFR Calculation (90-130) mL/min Glucose (65-115) mg/dL Calculated Osmolal ity (285-295) mOsm/k g Lactic Acid (0.5-2.2) mmol/L Calcium (8.5-10.5) mg/dL Total Bilirubin (0.15-1.2) mg/dL AST (0-40) U/L ALT (0-41) U/L Alkaline Phosphata se (40-130) IU/L Troponin T Baselin e 15 (0-15) ng/L Troponin T 120 Min [place] 13.80 (0-15) ng/L Delta Troponin T -1.20 L (0-10) ABS# NT-Pro-B Natriuret Pep (0-125) pg/mL Total Protein (6.6-8.7) g/dL Albumin (3.5-5.2) g/dL Globulin (1.3-4.6) g/dL Discharge Plan Discharge Patient Disposition: Home Clinical Impression: COPD (chronic obstructive pulmonary disease) Qualifiers: COPD type: COPD with acute exacerbation Qualified Code(s): J44.1 - Chronic obstructive pulmonary disease with (acute) exacerbation Condition: Stable Prescriptions: New doxycycline hyclate 100 mg capsule 100 mg PO BID 7 Days Qty: 14 RF: 0 prednisone 20 mg tablet 60 mg PO DAILY Qty: 15 RF: 0 No Action acetaminophen-codeine [Tylenol-Codeine #3] 300-30 mg tablet 1 tab PO Q4H PRN (Reason: pain (scale score 7-10)) 5 Days Qty: 30 RF: 0 Spiriva Respimat 2.5 mcg/actuation mist 2 inh INHALATION DAILY Qty: 4 RF: 0 albuterol sulfate 90 mcg/actuation HFA aerosol inhaler 2 inh INHALATION Q6H PRN (Reason: shortness of breath or wheezing) Qty: 8 RF: 0 Discharge Orders: Discharge Order (Routine); Ordered 11/20/19 Ordered By: Cuong Godfrey Referrals: German Oakes MD [Primary Care Provider] - 4-7 days Discharge Diet: Usual diet Discharge Activity: Increase activity as tolerated Patient Instructions: Chronic Bronchitis (ED) Activity Restrictions/Additional Instructions: Return for worsening shortness of breath despite treatment, fever greater than 100 despite 2-3 doses of antibiotics, other concerning symptoms. Medications as directed. Use your inhaler every 4 hours while awake for the next 48 hours, then as needed. Discharge Date/Time: 11/20/19 03:59 Coding Level of Care Code ED Manager Cath Lab for Chelsea Albert
[2019-11-21 18:41] LABS: Coronavirus Lab Test PTC SEE REPORT
== END 2019-11-20 03:59 | disposition home or self-care (01) ==
PROVIDERS: Emergency Provider Emergency Medicine; PCP Family Medicine
DX: J44.1 Chronic obstructive pulmonary disease with (acute) exacerbation (principal); E11.9 Type 2 diabetes mellitus without complications; F17.210 Nicotine dependence, cigarettes, uncomplicated
CPT/HCPCS: 12345; 36600; 71045; 71275; 80053; 82805; 83605; 83880; 84484; 85025; 87040; 87070; 87205; 87635; 93005; 94640; 96374; 96375; 99283; 99284; J2060; J2930; Q9967

== ENCOUNTER 2019-12-07 10:54 | Outpatient (CLI) | payer BC, SELFPAY ==
--- NOTE | 2019-12-07 10:58 | CT_ITS ---
WS: [id number] LDCT LUNG CANCER SCREENING TECHNIQUE: Noncontrast CT of the chest with coronal and sagittal reformatted images. CLINICAL INFORMATION: NICOTINE DEPENDENCE,CIGARETTES COMPARISON: CT April 26, 2019 and CTA 12/01 DLP: 54.85 mGy.cm DIvol: 1.[address] scans at [facility] use at least one of these dose optimization techniques: automat ed exposure control; mA and/or kV adjustment per patient size (includes targeted exams where dose is matched to clinical indication); or iterative reconstruction. FINDINGS: 5 mm noncalcified nodule left upper lobe. Tiny faint 4 mm subpleural nodule left upper lobe. Fibrosis in the lung apices. A few calcified granulomas.Moderate chronic emphysematous changes with paraseptal emphysema. Interstitial thickening in the lung bases. Scattered areas of fibrosis. No acut e pulmonary infiltrates. No focal pneumonia. No mediastinal or hilar lymphadenopathy. Adrenal glands are normal. Chronic anterior wedging in the mid and lower thoracic spine. CT/CT lung screening [id number] IMPRESSION: LUNG-RADS: 2-Benign Appearance or Behavior FOLLOW UP: 12 Month: Continue annual screening with LDCT
== END 2019-12-07 10:55 | disposition home or self-care (01) ==
LOC: CT 10:55
PROVIDERS: PCP Family Medicine; Visit Provider Family Medicine
DX: Z12.2 Encounter for screening for malignant neoplasm of respiratory organs (principal); F17.210 Nicotine dependence, cigarettes, uncomplicated
CPT/HCPCS: G0297

== ENCOUNTER 2020-03-14 10:25 | Outpatient (CLI) | payer BC, SELFPAY ==
--- NOTE | 2020-03-14 10:30 | XRR_ITS ---
PROCEDURE INFORMATION: Exam: XR Chest, 2 Views Exam date and time: 03/14/2020 10:50 AM Age: 64 years old Clinical indication: Shortness of breath TECHNIQUE: Imaging protocol: XR of the chest Views: 2 views. COMPARISON: CR XR chest 1V portable [id number] 11/19/2019 11:53 PM FINDINGS: Lungs: There is interstitial pulmonary fibrosis which is predominantly in the lung bases and unchanged. No acute pulmonary infiltrates are seen. Pleural space: Unremarkable. No pleural effusion. No pneumothorax. Heart/Mediastinum: The heart is not enlarged. There is mild tortuosity of the aorta. Bones/joints: Unremarkable. XR/XR chest 2V* [id number] IMPRESSION: Stable interstitial fibrosis. No acute chest abnormality.
== END 2020-03-14 10:26 | disposition home or self-care (01) ==
LOC: RAD 10:29
PROVIDERS: PCP Family Medicine; Visit Provider Internal Medicine Critical Care Medicine
DX: J43.9 Emphysema, unspecified (principal); R06.02 Shortness of breath; J84.10 Pulmonary fibrosis, unspecified
CPT/HCPCS: 71046

== ENCOUNTER 2020-04-05 06:49 | Outpatient (CLI) | payer BC, SELFPAY ==
[2020-04-05 07:21] VITALS: BMI 25.8
--- NOTE | 2020-04-05 07:21 | NMCV_ITS ---
NM teodora perf SPECT r/s* [id number] Gregg Babcock Age: 64 Gender: M : 1955 Exam Date: 04/05/2020 08:17 Ordering Phys: Joaquín Mayfield MD Technologist: SHANNON Lambert Exam Location: [facility] Indications: CHEST PAIN STRESS TEST Please see separate stress test report in [facility]any for full findings IMAGE PROTOCOL Rest/Stress 1 Lexiscan Day Radiopharmaceutical Dose (mCi) Administration Site Administered by Rest: Tc-99m 10.6 IV SHANNON Hernandez Sestamibi Stress:Tc-99m IV Sestamibi Rest: 05-Apr-2020 60 Discovery 630 Stress: 05-Apr-2020 30 Discovery 630 0.4mg Lexiscan. Images obtained in supine and prone position. SPECT RESULTS Technical Quality: Excellent Raw Data Analysis: Normal Image Corrections: No attenuation or motion correction applied Summed Stress Score: 0 Summed Rest Score: 2 Summed Difference Score: 0 PERFUSION FINDINGS Patchy areas of decreased tracer uptake were noted in the inferior wall and apical regions. No significant reversibility was noted in these regions. FUNCTIONAL RESULTS (calculated via Gated SPECT) Stress Image LV EF (%): 39 Stress EDV (mL):144 TID: 1.14 Stress ESV (mL):88 FUNCTIONAL FINDINGS: Segmental wall motion analysis revealing diffuse hypokinesia of the left ventricle. IMPRESSIONS #1. Myocardial perfusion imaging revealing patchy areas of slightly decreased persistent tracer uptake in the inferior wall and apical regions, suggestive of myocardial scarring versus attenuation artifact. #2. Diminished LV ejection fraction of 39%. #3. LV wall motion analysis revealed diffuse hypokinesia of the left ventricle. #4. Dilated LV cavity with an LV end-systolic volume of 88 mL #5 Slightly elevated transient ischemic dilatation ratio, may suggest endocardial ischemia. However the positive predictive value of this finding is limited. Clinical correlation is recommended. Compared to the previous study from 01/29/2018, there is worsening of the LV systolic function and more LV cavity dilatation Dr Chelsea Parikh MD [facility] (Electronically Signed) Final Date: 05 April 2020 19:51 S
--- NOTE | 2020-04-05 07:21 | ECG_ITS ---
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 Interpretive Statements NAME OF STUDY: LEXISCAN SESTAMIBI STRESS TEST INDICATION: Chest Pain; Shortness of Breath, PROCEDURE: At the baseline, the EKG revealed normal sinus rhythm with frequent PVCs. The baseline blood pressure was 124/83 mm Hg with a heart rate of 74 beats/min. Lexiscan was infused over a period of 20 seconds. A total of 0.4 milligrams of Lexiscan was infused. The stress phase was continued for a total of 5 minutes. Heart rate at the end of the stress phase was 95 with a blood pressure 119/83. The EKG at the peak infusion revealed disappearance of the baseline PVCs. Sestamibi was injected 20 seconds after the Lexiscan infusion. Blood pressure at the end of the recovery phase was 120/84 with a heart rate of 88 per minute. CONCLUSION: 1. No significant EKG changes with the LexiScan infusion 2. No LexiScan induced chest pain or cardiac arrhythmia 3. Normal blood pressure and heart rate response 4. Sestamibi/sestamibi perfusion scan pending; see separate report. Electronically Signed On 04-05-2020 20:56:43 ELIGIBILITY COUNSELOR by Chelsea Parikh M.D. [id number]
[2020-04-05] MEDS: regadenoson 0.4 Mg/5 ml Syringe IVP (08:55)
[2020-04-05 08:56] VITALS: BP 113/86; PULSE 99
== END 2020-04-05 06:50 | disposition home or self-care (01) ==
LOC: CDL 06:50
PROVIDERS: PCP Family Medicine; Visit Provider Internal Medicine Critical Care Medicine
DX: R07.9 Chest pain, unspecified (principal)
CPT/HCPCS: 78452; 93017; A9500; J2785

== ENCOUNTER 2020-04-13 19:14 | Emergency (ER) | payer BC, SELFPAY ==
[2020-04-13] VITALS (7 sets, daily range): BP systolic 111–129; BP diastolic 79–85; PULSE 79–98; RESP 11–22; TEMP 36.7; O2SAT 94–98; BMI 25.4
--- NOTE | 2020-04-13 19:17 | ECG_ITS ---
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 Measurements Intervals [place] Rate: 85 P: 52 DC: 173 QRS: -25 QRSD: 95 T: 32 QT: 363 QTc: 433 Interpretive Statements SINUS RHYTHM BORDERLINE LEFT AXIS DEVIATION [QRS AXIS < -20] POSSIBLE RIGHT VENTRICULAR CONDUCTION DELAY [RSR (QR) IN V1/V2] NONSPECIFIC T-WAVE ABNORMALITY Compared to ECG 11/20/2019 02:08:53 No significant changes Electronically Signed On 04-14-2020 18:29:18 BLOCKING MACHINE OPERATOR by Ric Rosa M.D. [id number]
--- NOTE | 2020-04-13 19:17 | XR_ITS ---
WS: [id number] Exam: XR chest 1V portable [id number] Date/Time of Exam: 04/13/2020 7:43 PM Reason For Exam: cp Comparison 03/14/2020. Again noted are chronic fibrotic changes in the right lower lung zones. A 3.7 cm cavitary lesion has developed in the left upper lobe since the previous study. Heart and mediastinal structures are unrem arkable in appearance. No pleural effusion or pneumothorax. Bony structures are intact. There is hard tomlin visualized in the lower cervical spine. XR/XR chest 1V portable [id number] IMPRESSION: 1. 3.7 cm cavitary lesion has developed in the left upper lobe since previous e xam. Consider cavitating pneumonia, tuberculosis or small abscess. 2. Chronic right basal changes.
--- NOTE | 2020-04-13 20:01 | ED_ITS ---
HPI - Chest Pain General: Chief Complaint: Chest Pain Stated Complaint: cp Time Seen by Provider: 04/13/20 19:43 Source: patient Mode of arrival: ambulatory Limitations: no limitations History of Present Illness: HPI narrative: 64-year-old male states he been having pain throughout the day. He states he has had some chest pain left side of his chest with numbness to his arm. He states that has improved but still is a 2 out of 10. Denies any worsening improving factors. He did have a stress test last week. Denies any history of heart disease. He is a former smoker. MD complaint: chest pain Associated symptoms: Deny abdominal pain, dyspnea, fever(s), nausea or vomiting Review of Systems Const: Denies: fever(s), chills, body aches or change in appetite Eyes: Denies: blurry vision or eye discomfort ENMT: Denies: throat pain or dental pain Card: Reports: chest pain Resp: Denies: dyspnea GI: Denies: abdominal pain, nausea, vomiting or diarrhea : Denies: dysuria Musc: Denies: neck pain or back pain Skin/Breast: Denies: rash Neuro: Denies: headache(s) Psych: Denies: depression Jamari/Lymph: Denies: easy bruising All/Imm: Denies: urticaria PFSH ED PFSH: Medical History Amputation of toe of right foot COPD (chronic obstructive pulmonary disease) Diabetes Diabetes Surgical absence of teeth Tobacco abuse Surgical History H/O neck surgery H/O neck surgery H/O vasectomy H/O: vasectomy History of ankle surgery History of ankle surgery History of dental surgery History of facial surgery History of facial surgery History of lobectomy of lung History of lung biopsy History of lung biopsy S/P lobectomy of lung Family History Father Cancer Hypertension Mother Diabetes Brother Diabetes Sister Diabetes Father Cancer Prostate Social History Smoking and tobacco status: former smoker Quit status (tobacco): has quit using tobacco Year quit tobacco: 2019 - 2PPD x 40 Years Second hand smoke exposure: No Alcohol intake: current Alcohol intake frequency: holidays/special occasions only Lives independently: Yes Household members: none Housing: House Marital status: Number of children: 3 Number of grandchildren: 4 Highest education level completed: High School Graduate service: No Current occupational status: retired and disabled Pets and animals: Yes 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 History of recent travel: No Leisure activites: hunting and fishing Current gender identity: Male Dian/Adventism: Worship Physical Exam Const: COMMON NORMALS: no acute distress, patient oriented x3 and healthy appearing HENMT: COMMON NORMALS: normocephalic and atraumatic HEAD & SCALP: normocephalic and atraumatic Eye: COMMON NORMALS: Equal, round and reactive pupils present and EOMs intact bilaterally PUPIL: Yes Equal, round and reactive pupils present Neck/C-Spine: COMMON NORMALS: full ROM and supple Chest: COMMONS NORMALS: normal inspection of the chest and normal palpation of entire chest wall Resp: COMMON NORMALS: normal respiratory effort, No retractions, No use of accessory muscles and clear to auscultation bilaterally AUSCULTATION: clear to auscultation bilaterally Cardio: COMMON NORMALS: regular rate, regular rhythm and No murmurs present (Cardio) RATE: regular rate RHYTHM: regular rhythm GI: COMMON NORMALS: Normal to inspection, nondistended, normoactive bowel sounds present, Soft to palpation, non-tender and no masses PALPATION: Yes Soft to palpation Extremity: COMMON NORMALS: normal to inspection and full ROM Neuro: COMMON NORMALS: patient oriented x3, moves all extremities and no focal motor deficits Psych: COMMON NORMALS: mental status grossly normal, Normal thought process present and cooperative THOUGHT PROCESS: Normal thought process present Skin: COMMON NORMALS: no rashes or lesions noted and no wounds GENERAL SKIN EXAM: no rashes or lesions noted Course Vital Signs: Vital signs: Vital Signs Temperature 98.0 F 04/13/20 19:29 Pulse Rate 79 04/13/20 21:59 Respiratory Rate 11 L 04/13/20 21:59 Blood Pressure 111/82 04/13/20 21:59 Pulse Oximetry 95 04/13/20 21:59 MDM - Chest Pain MDM Narrative: Medical decision making narrative: Gregg presents here with chest pain that is since resolved. His EKG and repeat EKGs are normal. X-ray shows no acute findings. His troponin levels are normal as well. He had a stress test last week that showed no acute abnormalities. He has an appoint with Dr. Rivera on Friday and I feel he is stable for discharge and is to follow- up as scheduled. He is return to the ER if his pain returns. He understands agrees to plan. Lab Data: Labs: Lab Results 04/13/20 04/13/20 04/13/20 Range/Units 20:11 20:11 20:11 WBC 9.5 (4.0-10.0) 10^3/ uL RBC 5.13 (4.1-5.3) 10^6/u L Hgb 14.3 (11.7-16.6) g/dL Hct 43.3 (42.0-52.0) % MCV 84.4 (80-94) fL MCH 27.9 L (28.0-34.0) pg MCHC 33.0 (30.0-36.0) g/dL RDW 14.0 (12.1-15.1) % Plt Count 257 (130-400) 10^3/c mm MPV 9.0 (7.4-10.4) fL Neut % (Auto) 46.1 % Lymph % (Auto) 41.9 % [place] % (Auto) 8.9 % Eos % (Auto) 2.2 % Baso % (Auto) 0.5 % Neut # (Auto) 4.38 (1.8-7.7) 10^3/u L Lymph # (Auto) 4.0 (0.8-4.8) 10^3/u L [place] # (Auto) 0.9 (0.2-0.9) 10^3/u L Eos # (Auto) 0.2 (0.0-0.8) 10^3/u L Baso # (Auto) 0.1 (0.0-0.1) 10^3/u L Nucleated RBC % (a uto) 0 % Nucleated RBCs # 0.0 /100WBC Sodium 139 (136-145) mmol/L Potassium 4.5 (3.5-5.1) mmol/L Chloride 102 (98-107) mmol/L Carbon Dioxide 28 (22-29) mmol/L Anion Gap 13.5 (5-19) BUN 18 (8-23) mg/dL Creatinine 0.8 (0.7-1.2) mg/dL GFR Calculation 98.0 (90-130) mL/min Glucose 130 H (65-115) mg/dL Calculated Osmolal ity 292 (285-295) mOsm/k g Calcium 9.1 (8.5-10.5) mg/dL Total Bilirubin 0.2 (0.15-1.2) mg/dL AST 17 (0-40) U/L ALT 14 (0-41) U/L Alkaline Phosphata se 106 (40-130) IU/L Troponin T Baselin e 13 (0-15) ng/L Troponin T 120 Min eleno (0-15) ng/L Delta Troponin T (0-10) ABS# Total Protein 6.8 (6.6-8.7) g/dL Albumin 4.0 (3.5-5.2) g/dL Globulin 2.8 (1.3-4.6) g/dL 04/13/20 Range/Units 21:23 WBC (4.0-10.0) 10^3/ uL RBC (4.1-5.3) 10^6/u L Hgb (11.7-16.6) g/dL Hct (42.0-52.0) % MCV (80-94) fL MCH (28.0-34.0) pg MCHC (30.0-36.0) g/dL RDW (12.1-15.1) % Plt Count (130-400) 10^3/c mm MPV (7.4-10.4) fL Neut % (Auto) % Lymph % (Auto) % [place] % (Auto) % Eos % (Auto) % Baso % (Auto) % Neut # (Auto) (1.8-7.7) 10^3/u L Lymph # (Auto) (0.8-4.8) 10^3/u L [place] # (Auto) (0.2-0.9) 10^3/u L Eos # (Auto) (0.0-0.8) 10^3/u L Baso # (Auto) (0.0-0.1) 10^3/u L Nucleated RBC % (a uto) % Nucleated RBCs # /100WBC Sodium (136-145) mmol/L Potassium (3.5-5.1) mmol/L Chloride (98-107) mmol/L Carbon Dioxide (22-29) mmol/L Anion Gap (5-19) BUN (8-23) mg/dL Creatinine (0.7-1.2) mg/dL GFR Calculation (90-130) mL/min Glucose (65-115) mg/dL Calculated Osmolal ity (285-295) mOsm/k g Calcium (8.5-10.5) mg/dL Total Bilirubin (0.15-1.2) mg/dL AST (0-40) U/L ALT (0-41) U/L Alkaline Phosphata se (40-130) IU/L Troponin T Baselin e (0-15) ng/L Troponin T 120 Min eleno 12.78 (0-15) ng/L Delta Troponin T -0.22 L (0-10) ABS# Total Protein (6.6-8.7) g/dL Albumin (3.5-5.2) g/dL Globulin (1.3-4.6) g/dL Imaging Data^: CXR: Attestation: I personally reviewed and interpreted this imaging study as follows: My impression: no acute abnormality EKG Data^: EKG 1: Attestation: I personally reviewed and interpreted this EKG as follows: EKG interpretation date: 04/13/20 EKG interpretation time: 19:27 Interpretation: nsr hr [address] or t wave abnormalities qrs 100 qtc 384 EKG 2: Attestation: I personally reviewed and interpreted this EKG as follows: EKG interpretation date: 04/13/20 EKG interpretation time: 21:37 Interpretation: nsr hr [address] or t wave abnormalities qrs 95 qtc 405 Discharge Plan Discharge Patient Disposition: Home Clinical Impression: Chest pain Qualifiers: Chest pain type: unspecified Qualified Code(s): R07.9 - Chest pain, unspecified Condition: Stable Prescriptions: No Action escitalopram oxalate [Lexapro] 10 mg tablet 20 mg PO DAILY RF: 0 lorazepam [Ativan] 1 mg tablet 0.5 mg PO DAILY PRN (Reason: anxiety) RF: 0 fluticasone propionate [Flonase Allergy Relief] 50 mcg/actuation spray,suspension 1 spray intranasal DAILY RF: 0 Breztri Aerosphere 160-9-4.8 mcg/actuation HFA aerosol inhaler 2 inh inhalation BID Qty: 10.7 RF: 6 furosemide [Lasix] 20 mg tablet 20 mg PO DAILY Qty: 30 RF: 3 albuterol sulfate 90 mcg/actuation HFA aerosol inhaler 2 inh INHALATION Q6H PRN (Reason: shortness of breath or wheezing) Qty: 8 RF: 0 Discharge Orders: Discharge ED (Routine); Ordered 04/13/20 Ordered By: Kyle Saleh Referrals: Daniel Nogueira DO [Primary Care Provider] - Discharge Diet: Advance as tolerated Discharge Activity: Resume usual activity Patient Instructions: Chest Pain (ED) Coding Level of Care Code ED Health Informatics Advisor for [place] Fwd Exam Comprehensive
[2020-04-13 20:23] LABS: Basophils # 0.1 10^3/uL (0.0-0.1); Basophils % 0.5 %; Eosinophils # 0.2 10^3/uL (0.0-0.8); Eosinophils % 2.2 %; Hematocrit 43.3 % (42.0-52.0); Hemoglobin 14.3 g/dL (11.7-16.6); Lymphocytes % 41.9 %; Mean Corpuscular Hemoglobin 27.9 pg (28.0-34.0); Mean Corpuscular Volume 84.4 fL (80-94); Monocytes # 0.9 10^3/uL (0.2-0.9); Monocytes % 8.9 %; Neutrophils # 4.38 10^3/uL (1.8-7.7); Neutrophils % 46.1 %; Nucleated Red Blood Cells % 0 %; Platelet Count 257 10^3/cmm (130-400); Red Blood Count 5.13 10^6/uL (4.1-5.3); White Blood Count 9.5 10^3/uL (4.0-10.0)
[2020-04-13 20:51] LABS: Alanine Aminotransferase 14 U/L (0-41); Alkaline Phosphatase 106 IU/L (40-130); Anion Gap 13.5 (5-19); Aspartate Amino Transferase 17 U/L (0-40); Blood Urea Nitrogen 18 mg/dL (8-23); Calcium 9.1 mg/dL (8.5-10.5); Carbon Dioxide 28 mmol/L (22-29); Chloride 102 mmol/L (98-107); Globulin 2.8 g/dL (1.3-4.6); Glucose 130 mg/dL (65-115); Osmolality Calculated 292 mOsm/kg (285-295); Potassium 4.5 mmol/L (3.5-5.1); Sodium 139 mmol/L (136-145); Total Bilirubin 0.2 mg/dL (0.15-1.2); Total Protein 6.8 g/dL (6.6-8.7)
[2020-04-13] MEDS: aspirin 81 mg Chew Tablet 324 MG PO (21:01)
[2020-04-13] MEDS: nitroglycerin 0.4 mg sublingual Tablet SUBLINGUAL (21:18)
[2020-04-13 21:36] LABS: Troponin(5th) Baseline 13 ng/L (0-15)
--- NOTE | 2020-04-13 21:43 | PC.NURSE ---
EKG done at 2140 and shown to ER doctor
[2020-04-13 21:48] LABS: Troponin 5 2HR 12.78 ng/L (0-15)
[2020-04-13 21:53] LABS: Troponin 5 2HR Delta -0.22 ABS# (0-10)
[2020-04-13] MEDS: LORazepam 2 mg/mL INJ 1 mL 1 MG IVP (21:58)
[2020-04-13] MEDS: morphine 4 mg/mL SDV 1 mL IVP (22:06)
== END 2020-04-13 22:48 | disposition home or self-care (01) ==
PROVIDERS: Emergency Provider Emergency Medicine; PCP Family Medicine
DX: R07.9 Chest pain, unspecified (principal); J44.9 Chronic obstructive pulmonary disease, unspecified; E11.9 Type 2 diabetes mellitus without complications; Z87.891 Personal history of nicotine dependence; Z90.2 Acquired absence of lung [part of]
CPT/HCPCS: 12345; 71045; 80053; 84484; 85025; 93005; 96374; 96375; 99283; J2060; J2270

== ENCOUNTER 2020-04-26 08:05 | Outpatient (CLI) | payer OTHER, SELFPAY ==
[2020-04-26 11:07] LABS: Basophils # 0.1 10^3/uL (0.0-0.1); Basophils % 0.6 %; Eosinophils # 0.3 10^3/uL (0.0-0.8); Eosinophils % 2.9 %; Hematocrit 43.4 % (42.0-52.0); Lymphocytes # 3.2 10^3/uL (0.8-4.8); Lymphocytes % 34.8 %; Mean Corpuscular HGB Conc 32.3 g/dL (30.0-36.0); Mean Corpuscular Hemoglobin 27.3 pg (28.0-34.0); Mean Corpuscular Volume 84.6 fL (80-94); Mean Platelet Volume 8.8 fL (7.4-10.4); Monocytes # 0.8 10^3/uL (0.2-0.9); Monocytes % 8.5 %; Neutrophils % 52.7 %; Nucleated Red Blood Cells % 0 %; Platelet Count 212 10^3/cmm (130-400); Red Blood Count 5.13 10^6/uL (4.1-5.3); Red Cell Distribution Width 13.9 % (12.1-15.1); White Blood Count 9.3 10^3/uL (4.0-10.0)
[2020-04-26 11:27] LABS: INR 1.01 (0.8-1.2)
[2020-04-26 11:34] LABS: Anion Gap 11.1 (5-19); Blood Urea Nitrogen 16 mg/dL (8-23); Calcium 9.2 mg/dL (8.5-10.5); Carbon Dioxide 30 mmol/L (22-29); Chloride 101 mmol/L (98-107); Glucose 105 mg/dL (65-115); Osmolality Calculated 288 mOsm/kg (285-295); Potassium 4.1 mmol/L (3.5-5.1); Sodium 138 mmol/L (136-145)
== END 2020-04-26 08:06 | disposition home or self-care (01) ==
PROVIDERS: PCP Family Medicine; Visit Provider Internal Medicine Cardiovascular Disease
DX: R07.9 Chest pain, unspecified (principal)
CPT/HCPCS: 36415; 80048; 85025; 85610; 87635

== ENCOUNTER 2020-05-02 08:36 | Day surgery (SDC) | payer OTHER, SELFPAY ==
[2020-05-01] VITALS (46 sets, daily range): BP systolic 106–134; BP diastolic 73–96; PULSE 60–83; RESP 7–26; TEMP 36.2–37.1; O2SAT 90–98; BMI 24.7
--- NOTE | 2020-05-01 06:00 | XACV_ITS ---
"Exam Room: 1 Ht: 180 cm Wt: 80 kg BSA: 2.01 m2 Gender: Male : 1955 Any Known Allergies: Other Exam Priority: Routine Procedure(s): Procedure Description: Diagnostic procedure Procedure Description: PCI procedure Procedure Description: Left Heart Catheterization Procedure Description: Right Heart Catheterization Procedure Description: Left ventriculography Procedure Description: O2 saturation Procedure Description: Drug Eluting Coronary Stent Procedure Description: PTCA Procedure Description: Miscellaneous Procedure Description: ACT Procedure Description: Coronary Angiography Procedure Description: Pressure Wire Diagnostic Cath Status: Elective Diagnostic Findings * LM has 0% stenosis. * CX has 0% stenosis. * RCA has 0% stenosis. * Mid Left Anterior Descending Coronary Artery: Severe 80% stenosis, JAYLIN: 0 flow, FFR performed: ratio is 0.76. * Coronary angiography shows right dominance. PCI Status: Elective Interventional Findings * Mid Left Anterior Descending Coronary Artery: 80% stenosis treated with MDT Tod SAUMYA 3.5X12 RISSA and MDT JHOANA EUPHORA RX [id number] BALLOON. 80% residual stenosis, JAYLIN: 0 flow. Successful intervention. Conclusions 1. There is severe coronary artery disease with one vessel disease. 2. Normal left ventricular systolic function. Ejection fraction of 60%. 3. Mid Left Anterior Descending Coronary Artery was successfully treated with Drug Eluting Stent and Balloon. 4. RA 13mmHgRV 36/10 mmHgPA 29 mmHgPCWPCardiac Out Put 5.0LCI 2.0. 5. Indication for left and right heart cath: Unexplained shortness of breath 6. chest pressure 7. , 8. abnormal stress test. Recommendations * Continue current medical management and risk factor modification. * 1-Return to inpatient for close monitoring and routine cath care 2-Risk factor modification for secondary prevention 3-Statin with LDL goal <70 mg/dl, aspirin 81 mg life-long 4-Patient was pre-loaded with 180mg of Brillinta. Continue Brillinta 90mg p.o. twice daily for at least one year. We will assess at the end of one year again to continue it further or not 5-Continue optimal medical management 6-Follow up with Dr. Richardson in four weeks and with your PCP in one week . Interventional RX Recommendation: PCI w/o planned CABG Diagnostic RX Recommendation: PCI w/o planned CABG Ventriculography Ejection Fraction: 60.0 % Pressures Phase:Rest AO : 102 / 65 ( 82 ) @ 2:14:00 AM 92 / 61 ( 77 ) @ 2:17:00 AM 112 / 67 ( 87 ) @ 2:27:00 AM 111 / 89 ( 85 ) @ 2:27:00 AM LV : 107 / -13 / @ 2:25:00 AM 112 / -10 / @ 2:26:00 AM 115 / -14 / @ 2:27:00 AM RV : 36 / 10 / @ 2:41:00 AM PA : 37 / 22 ( 29 ) @ 2:42:00 AM RA : a wave = v wave = mean = 13 @ 2:45:00 AM O2 Content Phase:Rest PA : O2 Content O2: 63.6 @ 2:17:00 AM Saturations Phase:Rest AO : 90 @ 2:14:00 AM RA : 68 @ 2:27:00 AM RV : 64 @ 2:27:00 AM PA : 64 @ 2:17:00 AM Cardiac Output Phase:Rest Queta : 5 @ 2:14:00 AM Queta Cardiac Index: 2 @ 2:14:00 AM Valves Phase:DefaultPhase AV : 0.0 @ 10:19:18 AM AV Mean Gradient: 0.0 @ 10:19:18 AM Clinical Evaluation EBL: 5mL-10mL Procedural Details Procedure Consent Obtained. Pre-Procedure Time Out. Identified patient by full name and date of as verbalized by the patient/guarantor. Does the consent match the physician's order: Yes. Accurate & Complete Informed Consent: Yes. Inpatient/Outpatient History & Physical on Chart: Yes. If H&P is completed, is and addenduem needed: N/A. Visualize and Verify Site with Patient/Guarantor: N/A. Relevant Radiology Images available: Yes. Procedure started. [facility] Clinical Fraility Score: 3: Managing Well. Licensed Home Inspector Indications: Stable Known CAD. Chest Pain Symptom Assessment: Typical Angina Symptoms. Cardiovascular Instability: No. Correct patient, site and procedure confirmed by cath team. PERRLA. Strong, equal hand pharmacy informatics specialist bilaterally. Lungs clear x 5 lobes. IV Site on Arrival: 20 gauge in the left anticubital. IV Site on Arrival: 20 gauge in the right anticubital to use for RHC then will be discontinued. IV Fluids: 0.9% NaCl at KVO. 0 mL infused prior to cemetery laborer. Pre Procedural Pulses: bilateral posterior tibial was 3+. Pre Procedural Pulses: right radial was 3+. Pre Procedural Pulses: right dorsalis pedis was 3+. Pre Procedural Pulses: left dorsalis pedis was Doppled. Patient on room air for RHC. right radial was prepped with chloroprep then draped in the usual sterile fashion. right groin was prepped with chloroprep then draped in the usual sterile fashion. Physician notified. Baseline sample Acquired. HR: 66 BPM. Patient's family unavailable. Equipment: 6F - Radial. Cardiac Cath Pack. ACIST Manifold Kit Model BT 2000. Heparinized Saline (2 units/mL), 1000 mL bag. Physician arrived. Physician scrubbed in. Immediate Pre-Procedure Time Out. Correct Patient: Yes; Correct Procedure: Yes; Correct Site: Yes; Correct Patient Position: Yes; Correct Supplies: Yes; Dried Flammable Prep: N/A. Lidocaine 1% infiltrated to the right brachial. [place] MON catheter inserted. Hand injection through the swan. 0.025 wire in. 0.25 wire out. [place] out, unable to go through the brachial isak. Will continue with [facility]. Lidocaine 1% infiltrated to the right radial. Arterial access obtained. A 5 liberian TIG catheter in over the exchange wire. Multiple views taken of left coronary artery. Catheter redirected to the RCA. Multiple views taken of right coronary artery. Catheter removed over the exchange wire. A 5 liberian JL4 catheter in over the exchange wire. Multiple views taken of left coronary artery. Catheter removed over the exchange wire. A 5 liberian Angled Pig catheter in over the exchange wire. EDP Sample taken: LV 107/-14,5; HR: 72 BPM; SpO2: 91%. LV gram performed in MEJIA @ 10 mL/second for a total of 30 mL. EDP Sample taken: LV 112/-11,6; HR: 85 BPM; SpO2: Off%. Pullback taken: LV 115/-15,1; AO 112/67(87); Mean: 0mmHg, Peak to Peak: 0mmHg, SEP: 6sec/min; HR: 108 BPM; SpO2: 95%. AO sat drawn. Catheter removed over the exchange wire. Lidocaine 1% infiltrated to the right groin. Venous access obtained with a micropuncture set. [place] MON catheter inserted. 0.025 wire in. 0.25 wire out. Oximetry samples were obtained. Normal venous range: 60-85%. Normal arterial range: 95-100%. Pressure measurements obtained. [place] out. Physician review of cine films. Physician scrubbed out. A TR Band was successful obtaining hemostatsis at the Right Radial artery insertion site. A Manual Compression was successful obtaining hemostatsis at the Right Brachial Vein insertion site. A Suture was successful obtaining hemostatsis at the Right Femoral vein insertion site. The patient's significant other and his daughter were notified via telephone by Dr. Richardson. TR band placed. Hemostasis obtained. Right Brachial venous Sheath removed and manual pressure held until hemostasis was achieved. Sterile 4x4 and Op-site applied to the puncture site. No oozing or hematoma noted. Post sheath removal instructions were given and the patient verbalized understanding. Righ Femoral venous Sheath sutured into position with 2-0 silk and sterile 4x4's and Op-site applied over the site. No oozing or signs and symptoms of hematoma noted. Post Procedure: Pulses reassessed and unchanged. PERRLA. Strong, equal hand pharmacy informatics specialist bilaterally. No VTE prophylaxis required. Medication's Wasted: Heparin = 1000 units. Medication's Wasted: Nitro = 49.8 mg. Total IV fluids: 75.5 mL. Post-op diagnosis: Normal coronaries/mild pulmonary HTN. Complications: none. Estimated blood loss: 5mL-10mL. Procedure completed. Patient transferred by bed to CPRU. Vital chart was stopped. Procedure started. Dr. Richardson decided to bring the patient back to the cemetery laborer and do an FFR. Physician arrived. Lidocaine 1% infiltrated to the right groin. Current Diagnosis : Chest Pain. Arterial access obtained with micropuncture set. 6 liberian XB 3.5 guide catheter was inserted over the wire. FFR guidewire was advanced through the guide catheter to lesion in the mid LAD. wire taken out and put back in the hoop due to an error with the e|tabo system. FFR guidewire was advanced through the guide catheter to lesion in the mid LAD. IFR= 0.89. An FFR value of 0.76 was obtained for a lesion located at Mid LAD. Adenosine stopped. Wire out. Inflation Number : 1 Blayne Baron SAUMYA 3.5X12 RISSA -Lot Number# _[id number] EXP: 11/01/2021 was prepped and advanced across the Mid LAD. The stent was deployed at 14 ELVIRA for 0:30 seconds. Stent balloon out over wire. Inflation number : 2 Blayne ELY EUPHORA RX [id number] BALLOON was prepped and advanced across the Mid LAD , then inflated to 16 ELVIRA for 0:23 seconds. Results checked. Balloon and wire out. Guide catheter out. A Suture was successful obtaining hemostatsis at the Right Femoral artery insertion site. ACT drawn. Results 198 seconds. Therapeutic limits - pre-heparin administration 90-150 seconds and monitoring heparin during a vascular procedure >250 seconds. Sheath(s) sutured into position with 2-0 silk and sterile 4x4's and Op-site applied over the site. No oozing or signs and symptoms of hematoma noted. Arterial sheath flushed and connected to tranducer and pressure bag with heparinized saline. PERRLA. Strong, equal hand pharmacy informatics specialist bilaterally. No VTE prophylaxis required. Medication's Wasted: Other = Adenosine 20 mg. Medication's Wasted: Other = Versed 1 mg. Medication's Wasted: Lidocaine 1% = 10 mL. Medication's Wasted: Other = Fentanyl 50 mcg. Medication's Wasted: Nitro = 49.6 mcg. Total IV fluids: 151 mL. Contrast type used: Omnipaque 300 mgI/mL, 500 mL bottle. Complications: None. Estimated blood loss: 5mL-10mL. Procedure completed. Vital chart was stopped. Medication's Wasted: Heparin = 3000 units. Patient transferred by bed to ICU. Access Site Site: Right Radial artery Sheath Size: 5 Fr Hemostasis Method: TR Band Hemostasis Success: Successful Site: Right Brachial Vein Sheath Size: 6 Fr Hemostasis Method: Manual Compression Hemostasis Success: Successful Site: Right Femoral vein Sheath Size: 6 Fr Hemostasis Method: Suture Hemostasis Success: Successful Site: Right Femoral artery Sheath Size: 6 Fr Hemostasis Method: Suture Hemostasis Success: Successful Procedure Medications Start: 8:12 AM Stop: 8:12 AM Medication: Versed Amount: 1 mg Route: I.V. Start: 8:13 AM Stop: 8:13 AM Medication: Fentanyl Amount: 50 mcg Route: I.V. Start: 8:13 AM Stop: 8:13 AM Medication: Versed Amount: 1 mg Route: I.V. Start: 8:14 AM Stop: 8:14 AM Medication: Nitrogylcerin Amount: 200 mcg Route: I.A. Start: 8:15 AM Stop: 8:15 AM Medication: Heparin Amount: 5000 units Route: I.V. Start: 8:16 AM Stop: 8:16 AM Medication: Versed Amount: 1 mg Route: I.V. Start: 8:16 AM Stop: 8:16 AM Medication: Fentanyl Amount: 50 mcg Route: I.V. Start: 8:30 AM Stop: 8:30 AM Medication: Versed Amount: 1 mg Route: I.V. Start: 9:28 AM Stop: 9:28 AM Medication: Versed Amount: 1 mg Route: I.V. Start: 9:28 AM Stop: 9:28 AM Medication: Fentanyl Amount: 50 mcg Route: I.V. Start: 9:28 AM Stop: 9:28 AM Medication: Versed Amount: 1 mg Route: I.V. Start: 9:28 AM Stop: 9:28 AM Medication: Fentanyl Amount: 50 mcg Route: I.V. Start: 9:50 AM Stop: 9:50 AM Medication: Adenosine (Adenocard) Amount: 672 mcg Route: I.V. bolus Start: 9:49 AM Stop: 9:49 AM Medication: Versed Amount: 1 mg Route: I.V. Start: 9:49 AM Stop: 9:49 AM Medication: Fentanyl Amount: 50 mcg Route: I.V. Start: 9:52 AM Stop: 9:52 AM Medication: Heparin Amount: 5000 units Route: I.V. Start: 9:57 AM Stop: 9:57 AM Medication: Nitrogylcerin Amount: 200 mcg Route: I.C. Start: 9:58 AM Stop: 9:58 AM Medication: Aggrastat 12.5 mg/250 mL Amount: 40 ml Route: I.V. bolus Start: 10:00 AM Stop: 10:00 AM Medication: Aggrastat 12.5 mg/250 mL Amount: 14.4 ml/hr Route: I.V. drip Start: 10:05 AM Stop: 10:05 AM Medication: Nitrogylcerin Amount: 200 mcg Route: I.C. Start: 10:15 AM Stop: 10:15 AM Medication: Heparin Amount: 2000 units Route: I.V. I, the attending physician, have reviewed and verified all procedure medications. Yes, all medications given per verbal order History/Risk Factors Hypertension: No Dyslipidemia: No Peripheral Arterial Disease (PAD): No Myocardial Infarction (DC): No Obesity: No Renal Disease: No Prior Interventions PCI: No CABG: No Valve Surgery: No Report Signatures Finalized by Jesus Richardson MD on 05/15/2020 09:18 AM"
[2020-05-01] MEDS: diphenhydrAMINE 50 mg Capsule PO (06:30)
--- NOTE | 2020-05-01 07:54 | W.PM.OPSUD ---
Surgery/Procedure H&P Update DATE OF PROCEDURE: May 01, 2020 DATE H&P PERFORMED: 04/18/20 H&P UPDATE INFORMATION: I have reviewed H&P completed within last 30 days, I have examined patient prior to procedure and No changes to prior documentation PREOP DIAGNOSIS: worsening of shortness of breath with chest pain/optimal medical management PLANNED PROCEDURE: Operation Date: 05/01/20 07:00 Proposed Procedures p left and right Cardiac Catheterization 58304 r06.02(Bilateral) - Jesus Richardson MD PATIENT REASSESSED PRIOR TO SEDATION, WITH NO CHANGE NOTED: Yes PHYSICAL EXAM: alert, oriented x 3 and clear to auscultation bilaterally AIRWAY EVAL/ANESTHESIA PLAN: ASA II and Risks, benefits & alternatives of sedation and/or procedure discussed
--- NOTE | 2020-05-01 09:08 | PC.NURSE ---
intake Received pt from laborer bituminous paving. pt alert and oriented x3. hooked patient to monitor and stable vitals obtained. tr band on right wrist and right venous access still present. dr moreno came to recovery room and discussed with pt about going back in and looking further at his vessels. pt agreed. pt taken back to laborer bituminous paving at 0910.
[2020-05-01] MEDS: clopidogrel 300 mg Tablet 600 MG PO (10:36)
[2020-05-01] MEDS: alum-mag-hydroxide-sime 30 mL UDC PO (11:00)
--- NOTE | 2020-05-01 11:01 | PC.NURSE ---
pt was taken back to computer lab aide to further investigate per dr moreno. pt was stable and pleasant. pt understood why wanted to look again.
[2020-05-01] MEDS: HYDROcodone-acetaminophen 5-325 mg Tablet 1 TAB PO ×3 (11:08→20:11)
--- NOTE | 2020-05-01 11:11 | PC.NURSE ---
c/o heartburn. will try maalox. had taken plavix abt 15 min. before
--- NOTE | 2020-05-01 13:21 | PC.NURSE ---
right groin site tender to touch. dressing d/i encouraged to not cross his legs.
[2020-05-01 15:22] LABS: Partial Thromboplastin Time 37.4 SECONDS (23.9-36.7)
[2020-05-01] MEDS: fentaNYL 50 mcg/mL INJ 2mL IVP (15:42)
--- NOTE | 2020-05-01 16:50 | PC.NURSE ---
1641 transferred to [facility]. after sheaths, (venous and arterial removed, intact.) 2 ml each interval, was removed from tr band and bandaid applied. no hematoma to right wrist, small hematoma to right brachial area. when dressing to right groin removed, noted hematoma, attempted to express prior to sheath removal. pt. c/o some burning like fire to area next to scrotum. after sheaths out pressure applied, for short period. also had some numbness in right arm that was relieved with movement. states that it has bothered him for some time prior to admission. [facility] nurse circled hematoma area. site w/o oozing. right pedal pulse good. s.r. with some pvc's.
--- NOTE | 2020-05-01 18:33 | PC.NURSE ---
HEMATOMA PATIENT BROUGHT TO THE FLOOR APPROXIMATELY 1545. PATIENT NOTED TO HAVE A 7X10 CM HEMATOMA ON THE RIGHT GROIN. PER [facility], THE PATIENT DEVELOPED THIS HEMATOMA LONG BEFORE IT WAS TIME TO PULL HIS SHEATH'S . HEMATOMA MARKED AND DR. GORDON NOTIFIED. DR GORDON ARRIVED ON THE FLOOR TO EVALUATE THE SIGHT. INSTRUCTED TO KEEP A CLOSE EYE ON THE SITE AND NOTIFY HIM IF THERE WAS ANY CHANGE NOTED.
--- NOTE | 2020-05-01 18:36 | PC.NURSE ---
1630 hematoma less in size after expressing area. did not notify physician at this time.
[2020-05-01] MEDS: escitalopram 10 mg Tablet 20 MG PO (20:12)
[2020-05-01] MEDS: acetaminophen 325 mg Tablet 650 MG PO (21:47)
[2020-05-01] MEDS: LORazepam 0.5 mg Tablet PO (21:47)
[2020-05-02] VITALS: BP 121/77; PULSE 71; RESP 14
--- NOTE | 2020-05-02 00:25 | PC.NURSE ---
PT IS RESTING IN BED. PT DENIES PAIN AT THIS TIME. PT WAS HURTING EARLIER AND RECEIVED PRN NORCO AND TYLENOL. PT HAS A HEMATOMA TO RIGHT GROIN THAT IS NOT INCREASING IN SIZE. PREVIOUS NURSE MARKED AREA. THE SIZE IS DECREASING. AT 2200 PT GOT UP AND WALKED 300 FEET. DRESSING IS C/D/I. WILL CONTINUE TO MONITOR.
[2020-05-02 02:00] VITALS: BP 99/69; PULSE 92; RESP 23
[2020-05-02 04:00] VITALS: BP 105/71; PULSE 73; RESP 17
--- NOTE | 2020-05-02 04:48 | PC.NURSE ---
AGGRASTAT WASN'T GIVEN D/T PT BEING POST CATH. WILL CONTINUE TO MONITOR.
--- NOTE | 2020-05-02 05:04 | PC.NURSE ---
PT RESTING IN BED. PT SAYS THAT THE SITE ON THE RIGHT GROIN IS TINDER, BUT PT DENIES PAIN. DRESSING C/D/I. HEMATOMA IS REABSORBING. WILL CONTINUE TO MONITOR.
[2020-05-02 05:55] VITALS: PULSE 77
[2020-05-02 08:00] VITALS: BP 110/75; PULSE 88; RESP 18; TEMP 36.6; O2SAT 94
--- NOTE | 2020-05-02 08:10 | P.SS_ITS ---
Short Stay Summary Providers Date of Admit/Discharge: 06/26/20 Attending Provider: Jesus Richardson MD Primary Care Provider: Dainel Nogueira DO Chief Complaint: cardiac catherization HPI History of Present Illness Gregg Babcock is a 64 year old male past medical history significant for hypertension hyperlipidemia for worsening of shortness of breath underwent left and right heart catheterization, right heart cath did not show significantly high pressures however left heart cath revealed eccentric mid LAD stenosis which was thought to be moderate however we performed FFR which showed significant dropping of pressure across the lesion at 0.76 which turns out to be positive. Mid LAD lesion was treated with single drug-eluting stent. Excellent angiographic result was achieved. Patient has small hematoma on the right groin after pulling the sheath but no significant bruit or pulsating mass. He has mild pressure in the right groin but denies any numbness tingling of the leg or any pain in the leg. He will be discharged home today. Advised in case of increasing swelling pain fevers chills or any discharge from the right groin he should let us know. Advised to take medicine regularly. Review of Systems Musc: Denies: joint warmth Home Meds/Allergies Home Medications and Allergies Home Medications Medication Instructions Recorded Confirmed Type escitalopram oxalate 10 mg tablet 20 mg PO DAILY tab 03/14/20 06/22/20 History lorazepam 1 mg tablet 0.5 mg PO DAILY PRN tab 03/14/20 06/22/20 History simvastatin 40 mg PO BEDTIME 05/02/20 06/22/20 History Allergies Allergy/AdvReac Type Severity Reaction Status Date / Time acetaminophen [From [place]] Allergy ADR-Itching Verified 06/21/20 17:27 hydrocodone [From [place]] Allergy ADR-Itching Verified 06/21/20 17:27 insect venom Allergy ALGY-Difficulty Verified 06/15/20 18:25 Swallowing PFSH Acute PFSH: Medical History 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 COPD (chronic obstructive pulmonary disease) Coronary artery disease Cubital tunnel syndrome on right Diabetes Diabetes Pulmonary nodule Surgical absence of teeth Tobacco abuse Surgical History H/O neck surgery H/O: vasectomy History of ankle surgery History of dental surgery History of facial surgery History of lung biopsy S/P lobectomy of lung Family History Father Cancer Hypertension Mother Diabetes Brother Diabetes Sister Diabetes Father Cancer Prostate Social History Smoking and tobacco status: former smoker Quit status (tobacco): has quit using tobacco Year quit tobacco: 2020 - 2PPD x 40 Years Second hand smoke exposure: No Alcohol intake: current Alcohol intake frequency: holidays/special occasions only Lives independently: Yes Household members: none Housing: House Marital status: Number of children: 3 Number of grandchildren: 4 Highest education level completed: High School Graduate service: No Current occupational status: retired and disabled Pets and animals: Yes 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 History of recent travel: No Leisure activites: hunting and fishing Current gender identity: Male Dian/Mosque: Christian Dietary Habits: Current diet type/program: regular Caffeine: Yes Caffeine intake frequency: coffee Exercise: What type of physical activity do you participate in?: walking Physical activity functional status: independent ambulation Safety: Seatbelt use: never Drive 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 NECK: No jugular vein distension. HEENT: No cyanosis. No icterus. No pallor. HEART: Regular S1 and S2. No murmur, rub or gallop. LUNGS: Clear to auscultate bilaterally. ABDOMEN: Soft, nontender and nondistended. Positive bowel sounds. No guarding, rebound or tenderness. CENTRAL NERVOUS SYSTEM: Grossly nonfocal. EXTREMITIES: Lower extremities without edema bilaterally. Pulses palpable in the lower extremities, both dorsalis pedis and posterior tibial. Small right groin hematoma which has been resolved with mild bruising. 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 request for service Routin e Exams 05/01/20 06:00 Taken Discharge Plan Discharge Patient Disposition: Home Condition: Stable Prescriptions: New clopidogrel 75 mg tablet 75 mg PO DAILY Qty: 90 RF: 4 aspirin [Adult Aspirin Regimen] 81 mg tablet,delayed release (DR/EC) 81 mg PO DAILY Qty: 90 RF: 4 pantoprazole [Protonix] [address] for susp in packet 40 mg PO DAILY Qty: 30 RF: 0 Continued escitalopram oxalate [Lexapro] 10 mg tablet 20 mg PO DAILY RF: 0 lorazepam [Ativan] 1 mg tablet 0.5 mg PO DAILY PRN (Reason: anxiety) RF: 0 Breztri Aerosphere 160-9-4.8 mcg/actuation HFA aerosol inhaler 2 inh inhalation BID Qty: 10.7 RF: 6 nitroglycerin [Nitrostat] 0.4 mg tablet, sublingual 0.4 mg sublingual Q5M PRN (Reason: chest pain) Qty: 25 RF: 3 Discontinued furosemide [Lasix] 20 mg tablet 20 mg PO DAILY Qty: 30 RF: 3 isosorbide dinitrate 10 mg tablet 10 mg PO BID Qty: 60 RF: 3 No Action Esbriet 801 mg tablet 801 mg PO TID 30 Days Qty: 90 RF: 12 metoprolol succinate 25 mg tablet extended release 24 hr 12.5 mg PO DAILY Qty: 90 RF: 3 sulfamethoxazole-trimethoprim [Bactrim DS] 800-160 mg tablet 2 tab PO TID 21 Days Qty: 126 RF: 0 prednisone 20 mg tablet 40 mg PO DAILY 21 Days Qty: 42 RF: 0 megestrol 400 mg/10 mL (40 mg/mL) suspension 400 mg PO DAILY Qty: 480 RF: 2 simvastatin 40 mg tablet 40 mg PO BEDTIME RF: 0 Discharge Orders: Discharge Order (Routine); Ordered 05/02/20 Ordered By: Jesus Richardson Referrals: Jesus Richardson MD [Physician] - (Please follow-up with Dr. Richardson on June 12 at 3:45p.m. If you have any questions or need to reschedule. Please call ) Annabella Bergman FNP [Nurse Practitioner] - (Please follow-up with Annabella Bergman on May 09 at 1:15p.m. If you have any questions or need to reschedule. Please call ) Discharge Diet: Cardiac Discharge Activity: Increase activity as tolerated Patient Instructions: Simvastatin (By mouth), Clopidogrel (By mouth), Pantoprazole (By mouth), Left Heart Catheterization (DC), Right Heart Ca theterization (DC), Coronary Angioplasty (DC), Chest Pain Stoplight, Post Angiogram Home Care Instructions Activity Restrictions/Additional Instructions: Follow-up with Annabella Bergman in 7 to 10 days. Attestations Medical Necessity Statement*: Patient will be discharged home today Time Spent in Patient Care*: greater than 30 min Quality Metrics Clinical Quality Measures: During this hospital stay, did patient experience: None Coding Level of Care Code Established Pt Acute Parts Advisor for Chg Fwd Patient Type Established Exam Expanded Problem Focused Medical Decision Making Moderate Complexity
[2020-05-02 08:35] VITALS: BP 110/75; PULSE 88; RESP 18; TEMP 36.6; O2SAT 94
[2020-05-02] MEDS: escitalopram 10 mg Tablet 20 MG PO (09:20)
[2020-05-02] MEDS: acetaminophen 325 mg Tablet 650 MG PO (09:28)
== END 2020-05-02 10:32 | disposition home or self-care (01) ==
LOC: CSU 08:36 → OPCSU 09:33 → CSU 10:07
PROVIDERS: PCP Family Medicine; Visit Provider Internal Medicine Cardiovascular Disease
DX: I65.22 Occlusion and stenosis of left carotid artery (principal); R07.9 Chest pain, unspecified; R06.02 Shortness of breath; I10 Essential (primary) hypertension; E78.5 Hyperlipidemia, unspecified; J44.9 Chronic obstructive pulmonary disease, unspecified; I25.10 Atherosclerotic heart disease of native coronary artery without angina pectoris; E11.9 Type 2 diabetes mellitus without complications; Z82.49 Family history of ischemic heart disease and other diseases of the circulatory system; Z83.3 Family history of diabetes mellitus; Z87.891 Personal history of nicotine dependence
CPT/HCPCS: 12345; 36415; 85347; 85730; 93460; 93571; C1725; C1751; C1769; C1874; C1887; C1894; C9600; J0153; J1644; J2250; J3010; J3246; J3490; J7030; Q0163; Q9967

== ENCOUNTER 2020-05-02 14:31 | Observation (INO) | payer OTHER, SELFPAY ==
--- NOTE | 2020-05-02 14:54 | USCV_ITS ---
Gregg Babcock Age: 64 Gender: M : 1955 Exam Date: 05/02/2020 15:25 Ordering Phys: Jesus Richardson MD ([email or web address]) Technologist: Mirian Salguero [place] [facility] [place]: [place]ATH SWELLING Findings Patent dorsalis pedis and posterior tibial artery on the right side with a biphasic Doppler waveforms. Patent femoral artery and vein on the right side. No evidence of pseudoaneurysm No significant flow turbulence. Conclusions Patent femoral vein and artery in the right groin with no evidence of pseudoaneurysm or AV communication. Patent dorsalis pedis and posterior arteries on the right side Dr Chelsea Parikh MD [facility] (Electronically Signed) Final Date: 02 May 2020 21:08 S
[2020-05-02 15:12] VITALS: BP 116/77; PULSE 98; RESP 19; TEMP 36.7; O2SAT 92
[2020-05-02 16:00] VITALS: BP 116/77; PULSE 98; RESP 19; TEMP 36.7; O2SAT 92
[2020-05-02 19:53] VITALS: BP 123/75; PULSE 84; RESP 15; TEMP 36.8; O2SAT 93
[2020-05-02] MEDS: atorvastatin 40 mg Tablet PO (20:18)
[2020-05-02] MEDS: LORazepam 0.5 mg Tablet PO (20:23)
[2020-05-02 22:00] VITALS: PULSE 76
--- NOTE | 2020-05-02 22:35 | PC.NURSE ---
PT IS RESTING IN BED. PT ASKED FOR PRN ATIVAN. ATIVAN WAS GIVEN. PT HAS A HEMATOMA TO RIGHT GROIN. PREVIOUS NURSE HAS OUTLINED THE HEMATOMA. IT IS SOFT AND REABSORBING. PT STATES THAT IT IS TENDER TO TOUCH. WILL CONTINUE TO MONITOR.
[2020-05-02 23:24] VITALS: BP 101/62; PULSE 86; RESP 13; TEMP 36.9; O2SAT 92
[2020-05-03 04:00] VITALS: BP 104/70; PULSE 82; RESP 17; TEMP 36.9; O2SAT 90
[2020-05-03 05:11] LABS: Basophils # 0.1 10^3/uL (0.0-0.1); Basophils % 0.6 %; Eosinophils # 0.5 10^3/uL (0.0-0.8); Eosinophils % 5.1 %; Hematocrit 43.3 % (42.0-52.0); Hemoglobin 13.9 g/dL (11.7-16.6); Lymphocytes # 3.4 10^3/uL (0.8-4.8); Lymphocytes % 36.5 %; Mean Corpuscular HGB Conc 32.1 g/dL (30.0-36.0); Mean Corpuscular Hemoglobin 27.3 pg (28.0-34.0); Mean Corpuscular Volume 85.1 fL (80-94); Monocytes % 10.2 %; Neutrophils # 4.43 10^3/uL (1.8-7.7); Neutrophils % 47.4 %; Nucleated Red Blood Cells % 0 %; Platelet Count 229 10^3/cmm (130-400); Red Blood Count 5.09 10^6/uL (4.1-5.3); Red Cell Distribution Width 14.1 % (12.1-15.1); White Blood Count 9.4 10^3/uL (4.0-10.0)
[2020-05-03 05:38] LABS: Alanine Aminotransferase 12 U/L (0-41); Albumin Level 3.5 g/dL (3.5-5.2); Alkaline Phosphatase 82 IU/L (40-130); Anion Gap 14.4 (5-19); Aspartate Amino Transferase 15 U/L (0-40); Blood Urea Nitrogen 15 mg/dL (8-23); Calcium 9.3 mg/dL (8.5-10.5); Carbon Dioxide 25 mmol/L (22-29); Chloride 100 mmol/L (98-107); Globulin 3.4 g/dL (1.3-4.6); Glomerular Filtration Rate 85.5 mL/min (90-130); Glucose 108 mg/dL (65-115); Osmolality Calculated 281 mOsm/kg (285-295); Potassium 4.4 mmol/L (3.5-5.1); Sodium 135 mmol/L (136-145); Total Bilirubin 0.4 mg/dL (0.15-1.2); Total Protein 6.9 g/dL (6.6-8.7)
--- NOTE | 2020-05-03 06:33 | PC.NURSE ---
PT IS RESTING IN BED. HEMATOMA IS STILL REABSORBING. PT STATES THAT IT IS STILL TINDER TO THE TOUCH. WILL CONTINUE TO MONITOR.
[2020-05-03 07:23] VITALS: BP 105/70; PULSE 89; RESP 20; TEMP 36.8; O2SAT 96
[2020-05-03] MEDS: aspirin 81 mg EC Tablet PO (08:58)
[2020-05-03] MEDS: pantoprazole DR 40 mg Tablet PO (08:58)
[2020-05-03] MEDS: clopidogrel 75 mg Tablet PO (08:58)
[2020-05-03] MEDS: escitalopram 10 mg Tablet 20 MG PO (08:59)
--- NOTE | 2020-05-03 09:27 | PC.CHAP ---
Pastoral Care Encounter/Spiritual Assessment Type of Contact [] Declined nurse school visit [] Patient/Family/Request visit [] Outpatient visit [] Follow-up visit [] Physician referral [] Code/Alert [x] Routine visit [] Staff referral [] Actively dying [] Patient sleeping [] Family support [] [] Out of room [] Palliative care [] [] Receiving care in room [] Pre-surgical visit [] Trauma [] Long length of stay [] ICU visit [] Other: Relational/Emotional Strength [] Patient feels connected with others/family/visitors/staff [] Distress [] Loneliness/isolation [] Abandonment Spirituality of Patient [] Person of Dian [] Attends Catholic of their Dian [] Believes in Prayer [] Reads Bible or Uatsdin materials [] There are Spiritual issues to be addressed Interactive Developer Interventions [x] Prayer [x] Active listening [x] Non-anxious presence [x] Spiritual/emotional support [] Crisis/trauma care [] Spiritual counseling [] Bereavement support [] Provided bereavement packet [] Provided Bible/devotional materials [] Provided toy/stuffed animal, coloring book to patient or family member [] Provided Communion [] Anointing/[place] [] Salvation [x] Completed spiritual assessment [] Other: Impact on Illness or Injury [] Angry [] Fearful [] Anxious [] Often cries [] Exhaustion [] Unable to work [] Unable to attend sabianism [] Unable to walk/stand [] Unable to read [] Unable to drive [] Unable to eat/drink [] Unable to sleep [] Unable to be with family [] Patient intubated [] Other: Summary patient feeling better.. likes doctor Time spent with patient 10 min
--- NOTE | 2020-05-03 10:50 | P.SS_ITS ---
Short Stay Summary Providers Date of Admit/Discharge: 05/03/20 Attending Provider: Jesus Richardson MD Primary Care Provider: Daniel Nogueira DO Chief Complaint: Pseudo-Aneurysm HPI History of Present Illness Gregg Babcock is a 64 year old male past medical history significant for coronary disease status post drug-eluting stent day before yesterday was discharged yesterday. He was readmitted in few hours after discharge for right groin swelling/hematoma and pain. Vascular ultrasound was obtained which did not show pseudoaneurysm or AV fistula. Both pulses anterior posterior tibial pulse palpable. Patient was observed overnight. He did fine hematoma has resolved. He has minor bruising on the right groin. He is not in pain. He is being discharged home. Home Meds/Allergies Home Medications and Allergies Home Medications Medication Instructions Recorded Confirmed Type escitalopram oxalate 10 mg tablet 20 mg PO DAILY tab 03/14/20 05/02/20 History lorazepam 1 mg tablet 0.5 mg PO DAILY PRN tab 03/14/20 05/02/20 History simvastatin 40 mg PO BEDTIME 05/02/20 05/02/20 History Allergies Allergy/AdvReac Type Severity Reaction Status Date / Time insect venom Allergy ALGY-Difficulty Verified 03/14/20 10:18 Swallowing Opioids - Morphine Analogues AdvReac Mild ADR-Itching Verified 03/14/20 10:18 PFSH Acute PFSH: Medical History (Updated 05/03/20 @ 00:00 by ) 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 COPD (chronic obstructive pulmonary disease) Diabetes Diabetes Pulmonary nodule Surgical absence of teeth Tobacco abuse Surgical History H/O neck surgery H/O neck surgery H/O vasectomy H/O: vasectomy History of ankle surgery History of ankle surgery History of dental surgery History of facial surgery History of facial surgery History of lobectomy of lung History of lung biopsy History of lung biopsy S/P lobectomy of lung Family History Father Cancer Hypertension Mother Diabetes Brother Diabetes Sister Diabetes Father Cancer Prostate Social History Smoking and tobacco status: former smoker Quit status (tobacco): has quit using tobacco Year quit tobacco: 2020 - 2PPD x 40 Years Second hand smoke exposure: No Alcohol intake: current Alcohol intake frequency: holidays/special occasions only Lives independently: Yes Household members: none Housing: House Marital status: Number of children: 3 Number of grandchildren: 4 Highest education level completed: High School Graduate service: No Current occupational status: retired and disabled Pets and animals: Yes 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 History of recent travel: No Leisure activites: hunting and fishing Current gender identity: Male Dian/Anabaptist: Religion Vitals/I&O/Wt Last Vital Signs Temp 98.3 F 05/03/20 07:23 Pulse 89 05/03/20 07:23 Resp 20 H 05/03/20 07:23 BP 105/70 05/03/20 07:23 Pulse Ox 96 05/03/20 07:23 05/02/20 05/03/20 05/03/20 22:59 06:59 14:59 Intake Total 600 / 600 240 / 840 360 / 360 Balance 600 / 600 240 / 840 360 / 360 Weight last 48 hrs Weight 170 lb Physical Exam Narrative: EXAM NARRATIVE: GENERAL: Patient is alert, awake and oriented x3. NECK: No jugular vein distension. HEENT: No cyanosis. No icterus. No pallor. HEART: Regular S1 and S2. No murmur, rub or gallop. LUNGS: Clear to auscultate bilaterally. ABDOMEN: Soft, nontender and nondistended. Positive bowel sounds. No guarding, rebound or tenderness. CENTRAL NERVOUS SYSTEM: Grossly nonfocal. EXTREMITIES: Lower extremities without edema bilaterally. Right groin mild bruising no hematoma SSS Data Data Completed and Pending: Completed Studies During Hospitalization Category Date Time [place] [id number] Urge nt Ultrasound 05/02/20 14:54 Completed Discharge Plan Discharge Patient Disposition: Home Condition: Stable Prescriptions: Continued escitalopram oxalate [Lexapro] 10 mg tablet 20 mg PO DAILY RF: 0 lorazepam [Ativan] 1 mg tablet 0.5 mg PO DAILY PRN (Reason: anxiety) RF: 0 Breztri Aerosphere 160-9-4.8 mcg/actuation HFA aerosol inhaler 2 inh inhalation BID Qty: 10.7 RF: 6 nitroglycerin [Nitrostat] 0.4 mg tablet, sublingual 0.4 mg sublingual Q5M PRN (Reason: chest pain) Qty: 25 RF: 3 clopidogrel 75 mg tablet 75 mg PO DAILY Qty: 90 RF: 4 aspirin [Adult Aspirin Regimen] 81 mg tablet,delayed release (DR/EC) 81 mg PO DAILY Qty: 90 RF: 4 pantoprazole [Protonix] [address] for susp in packet 40 mg PO DAILY Qty: 30 RF: 0 simvastatin 40 mg tablet 40 mg PO BEDTIME RF: 0 Discharge Orders: Discharge Order (Routine); Ordered 05/03/20 Ordered By: Jesus Richardson Discharge Diet: Cardiac Discharge Activity: Increase activity as tolerated Activity Restrictions/Additional Instructions: Follow-up with Annabella Bergman in 7 days. Follow-up with in 3 months. Continue clopidogrel without interruption along with aspirin for at least 1 year after that we will decide whether we need to continue it are to stop. 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
[2020-05-03 11:06] VITALS: BP 106/71; PULSE 80; RESP 18; TEMP 36.8; O2SAT 91
[2020-05-03 12:34] VITALS: BP 106/71; PULSE 80; RESP 18; TEMP 36.8; O2SAT 91
--- NOTE | 2020-05-03 12:37 | PC.NURSE ---
Discharge instructions given per the physician's instructions. Patient verbalized understanding of teaching and did not have any further questions. IV has been removed. Patient dressed self. No further needs identified at this time.
--- NOTE | 2020-05-05 12:56 | PC.RESP ---
Pulmonary Rehab information sent to patient.
== END 2020-05-03 12:37 | disposition home or self-care (01) ==
PROVIDERS: Admitting Provider Internal Medicine Cardiovascular Disease; PCP Family Medicine; Visit Provider Internal Medicine Cardiovascular Disease
DX: T81.718A Complication of other artery following a procedure, not elsewhere classified, initial encounter (principal); J44.9 Chronic obstructive pulmonary disease, unspecified; E11.9 Type 2 diabetes mellitus without complications; Z87.891 Personal history of nicotine dependence
CPT/HCPCS: 12345; 36415; 80053; 85025; 90935; 93926; G0378; G0379

== ENCOUNTER 2020-05-07 12:42 | Emergency (ER) | payer OTHER, SELFPAY ==
[2020-05-07 12:52] VITALS: BP 134/87; PULSE 93; RESP 14; TEMP 36.2; O2SAT 95; BMI 25.1
[2020-05-07 13:11] VITALS: PULSE 88; RESP 17; O2SAT 96
[2020-05-07] MEDS: sodium chloride 0.9% 500 ML IV (13:32)
[2020-05-07 13:33] VITALS: RESP 16; O2SAT 97
[2020-05-07] MEDS: morphine 4 mg/mL SDV 1 mL IVP (13:33)
[2020-05-07] MEDS: ondansetron 2 mg/ML SDV 2 mL 4 MG IVP (13:33)
--- NOTE | 2020-05-07 13:39 | W.ED.MALEGU ---
HPI - Male Genitourinary General: Chief complaint: Urogenital-Male Stated complaint: RLQ PAIN, R TESTICULAR PAIN/STENT PLACED ON 05.01 Time Seen by Provider: 05/07/20 13:08 Source: patient History of Present Illness: HPI Narrative: Patient with right lower quadrant abdominal pain that radiates to the right testicle. Started at 3:00 this morning. Has had nausea but no vomiting. 6 days ago did have a cardiac cath through the right femoral groin, so he has a hematoma there that has not changed. 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 COPD (chronic obstructive pulmonary disease) Cubital tunnel syndrome on right Diabetes Diabetes Pulmonary nodule Surgical absence of teeth Tobacco abuse Surgical History H/O neck surgery H/O neck surgery H/O vasectomy H/O: vasectomy History of ankle surgery History of ankle surgery History of dental surgery History of facial surgery History of facial surgery History of lobectomy of lung History of lung biopsy History of lung biopsy S/P lobectomy of lung Family History Father Cancer Hypertension Mother Diabetes Brother Diabetes Sister Diabetes Father Cancer Prostate Social History Smoking and tobacco status: former smoker Quit status (tobacco): has quit using tobacco Year quit tobacco: 2019 - 2PPD x 40 Years Second hand smoke exposure: No Alcohol intake: current Alcohol intake frequency: holidays/special occasions only Lives independently: Yes Household members: none Housing: House Marital status: Number of children: 3 Number of grandchildren: 4 Highest education level completed: High School Graduate service: No Current occupational status: retired and disabled Pets and animals: Yes 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 History of recent travel: No Leisure activites: hunting and fishing Current gender identity: Male Dian/Druze: Adventist Physical Exam Const: COMMON NORMALS: no acute distress, average body habitus, patient oriented x3, no limitations, healthy appearing, alert and well nourished HENMT: COMMON NORMALS: normocephalic, atraumatic, hearing grossly normal bilaterally, external ears normal, EAC's normal, TM's normal bilaterally, Normal external nose present, Normal nasal mucous membranes and turbinates present, moist oral mucous membranes, oropharynx normal, dentition normal and gingiva normal HEAD & SCALP: normocephalic and atraumatic NOSE: Normal external nose present and Normal nasal mucous membranes and turbinates present EXTERNAL EAR: Yes external ears normal EXTERNAL AUDITORY CANAL: EAC's normal TYMPANIC MEMBRANE: TM's normal bilaterally Neck/C-Spine: COMMON NORMALS: no JVD Chest: COMMONS NORMALS: normal inspection of the chest, normal palpation of entire chest wall, normal inspection of the breasts and normal palpation of the breasts Breast/axilla inspection: Yes normal inspection of the breasts BREAST/AXILLA PALPATION: Yes normal palpation of the breasts Resp: COMMON NORMALS: normal respiratory effort, No retractions, No use of accessory muscles, clear to auscultation bilaterally and percussion normal AUSCULTATION: clear to auscultation bilaterally PERCUSSION: percussion normal Cardio: COMMON NORMALS: no JVD, regular rate, regular rhythm, S1 normal heart sound present, S2 normal heart sound present, No gallops present (Cardio), No clicks present (Cardio), No murmurs present (Cardio), No rub (Cardio) and Peripheral pulses 2+ throughout RATE: regular rate RHYTHM: regular rhythm HEART SOUNDS: S1 normal heart sound present and S2 normal heart sound present PERIPHERAL PULSES: Peripheral pulses 2+ throughout GI: INSPECTION: Yes abdominal wall ecchymosis PALPATION: Yes Tenderness to palpation present (GI) Details: RLQ : MALE GROIN/PERINEUM EXAM: Yes ecchymosis SCROTUM: Yes Scrotal tenderness present (Right testicular tenderness. No masses.) Neuro: COMMON NORMALS: patient oriented x3 SENSORIUM/ORIENTATION: Yes alert Course Vital Signs: Vital signs: Vital Signs Temperature 97.2 F L 05/07/20 12:52 Pulse Rate 80 05/07/20 15:40 Respiratory Rate 16 05/07/20 15:40 Blood Pressure 125/88 05/07/20 15:40 Pulse Oximetry 96 05/07/20 15:40 MDM - Male MDM Narrative: Medical decision making narrative: Patient has kidney stone at the right UVJ that would correlate with his symptoms. Pain is doing much better now. Given [place] for pain and encouraged to drink lots of fluids. Lab Data: Labs: Lab Results 05/07/20 05/07/20 05/07/20 Range/Units 13:42 13:42 13:53 WBC 10.0 (4.0-10.0) 10^3/ uL RBC 4.89 (4.1-5.3) 10^6/u L Hgb 13.5 (11.7-16.6) g/dL Hct 40.9 L (42.0-52.0) % MCV 83.6 (80-94) fL MCH 27.6 L (28.0-34.0) pg MCHC 33.0 (30.0-36.0) g/dL RDW 13.7 (12.1-15.1) % Plt Count 268 (130-400) 10^3/c mm MPV 8.9 (7.4-10.4) fL Neut % (Auto) 68.8 % Lymph % (Auto) 19.7 % [place] % (Auto) 10.4 % Eos % (Auto) 0.2 % Baso % (Auto) 0.5 % Neut # (Auto) 6.89 (1.8-7.7) 10^3/u L Lymph # (Auto) 2.0 (0.8-4.8) 10^3/u L [place] # (Auto) 1.0 H (0.2-0.9) 10^3/u L Eos # (Auto) 0.0 (0.0-0.8) 10^3/u L Baso # (Auto) 0.1 (0.0-0.1) 10^3/u L Nucleated RBC % (a uto) 0 % Nucleated RBCs # 0.0 /100WBC Sodium 134 L (136-145) mmol/L Potassium 4.5 (3.5-5.1) mmol/L Chloride 99 (98-107) mmol/L Carbon Dioxide 26 (22-29) mmol/L Anion Gap 13.5 (5-19) BUN 15 (8-23) mg/dL Creatinine 1.0 (0.7-1.2) mg/dL GFR Calculation 75.7 L (90-130) mL/min Glucose 120 H (65-115) mg/dL Calculated Osmolal ity 280 L (285-295) mOsm/k g Calcium 9.1 (8.5-10.5) mg/dL Total Bilirubin 0.4 (0.15-1.2) mg/dL AST 17 (0-40) U/L ALT 14 (0-41) U/L Alkaline Phosphata se 93 (40-130) IU/L Total Protein 9.6 H (6.6-8.7) g/dL Albumin 3.8 (3.5-5.2) g/dL Globulin 5.8 H (1.3-4.6) g/dL Urine Color Yellow (Yellow) Urine Appearance Clear (CLEAR) Urine pH 5 (5-7) Ur Specific Gravit y 1.025 (1.005-1.030) Urine Protein Neg (Negative) Urine Glucose (UA) Norm (Normal) Urine Ketones Negative (Negative) Urine Blood 2+ H (Negative) Urine Nitrate Negative (Negative) Urine Bilirubin Neg (Negative) Urine Urobilinogen Norm (Negative) mg/dL Ur Leukocyte Renee ase Negative (Negative) Urine RBC 5-10 H (0-2) /hpf Urine WBC Rare (0-5) /hpf Ur Squamous Epith Cells None (0-5) /hpf Amorphous Sediment Not Reportable Urine Bacteria Trace (NONE) /hpf Discharge Plan Discharge Patient Disposition: Home Clinical Impression: Kidney stone Condition: Stable Prescriptions: New hydrocodone-acetaminophen 5-325 mg tablet 1 tab PO Q6H Qty: 20 RF: 0 No Action escitalopram oxalate [Lexapro] 10 mg tablet 20 mg PO DAILY RF: 0 lorazepam [Ativan] 1 mg tablet 0.5 mg PO DAILY PRN (Reason: anxiety) RF: 0 Breztri Aerosphere 160-9-4.8 mcg/actuation HFA aerosol inhaler 2 inh inhalation BID Qty: 10.7 RF: 6 nitroglycerin [Nitrostat] 0.4 mg tablet, sublingual 0.4 mg sublingual Q5M PRN (Reason: chest pain) Qty: 25 RF: 3 clopidogrel 75 mg tablet 75 mg PO DAILY Qty: 90 RF: 4 aspirin [Adult Aspirin Regimen] 81 mg tablet,delayed release (DR/EC) 81 mg PO DAILY Qty: 90 RF: 4 pantoprazole [Protonix] [address] for susp in packet 40 mg PO DAILY Qty: 30 RF: 0 simvastatin 40 mg tablet 40 mg PO BEDTIME RF: 0 Discharge Orders: Discharge ED (Routine); Ordered 05/07/20 Ordered By: Kei Friedman Referrals: Daniel Nogueira DO [Primary Care Provider] - Coding Level of Care Code ED Design Printer Balloon for Chg Fwd Exam Comprehensive
[2020-05-07 13:45] LABS: Basophils # 0.1 10^3/uL (0.0-0.1); Basophils % 0.5 %; Eosinophils % 0.2 %; Hematocrit 40.9 % (42.0-52.0); Hemoglobin 13.5 g/dL (11.7-16.6); Lymphocytes % 19.7 %; Mean Corpuscular Hemoglobin 27.6 pg (28.0-34.0); Mean Corpuscular Volume 83.6 fL (80-94); Mean Platelet Volume 8.9 fL (7.4-10.4); Monocytes % 10.4 %; Neutrophils # 6.89 10^3/uL (1.8-7.7); Neutrophils % 68.8 %; Nucleated Red Blood Cells % 0 %; Platelet Count 268 10^3/cmm (130-400); Red Blood Count 4.89 10^6/uL (4.1-5.3); Red Cell Distribution Width 13.7 % (12.1-15.1)
[2020-05-07 13:53] VITALS: BP 130/83; PULSE 85; RESP 17; O2SAT 96
[2020-05-07 14:07] LABS: Alanine Aminotransferase 14 U/L (0-41); Albumin Level 3.8 g/dL (3.5-5.2); Alkaline Phosphatase 93 IU/L (40-130); Anion Gap 13.5 (5-19); Aspartate Amino Transferase 17 U/L (0-40); Blood Urea Nitrogen 15 mg/dL (8-23); Calcium 9.1 mg/dL (8.5-10.5); Carbon Dioxide 26 mmol/L (22-29); Chloride 99 mmol/L (98-107); Glomerular Filtration Rate 75.7 mL/min (90-130); Glucose 120 mg/dL (65-115); Osmolality Calculated 280 mOsm/kg (285-295); Potassium 4.5 mmol/L (3.5-5.1); Sodium 134 mmol/L (136-145); Total Bilirubin 0.4 mg/dL (0.15-1.2)
[2020-05-07 14:34] LABS: Protein Urine Neg (Negative); Specific Gravity, Urine 1.025 (1.005-1.030); Urine Appearance Clear (CLEAR); Urine Color Yellow (Yellow); pH Urine 5 (5-7)
[2020-05-07 14:35] LABS: Add Urine Culture? No; Add Urine Microscopic? YES; Bacteria Urine TRACE /hpf; Bilirubin Urine Neg (Negative); Blood Urine 2+ (Negative); Glucose Urine UA Norm (Normal); Ketones Urine Negative (Negative); Leukocyte Esterase Urine Negative (Negative); Nitrate Urine Negative (Negative); Urobilinogen Urine Norm (Negative); WBC Urine RARE /hpf (0-5)
--- NOTE | 2020-05-07 14:49 | CTR_ITS ---
PROCEDURE INFORMATION: Exam: CT Abdomen And Pelvis Without Contrast Exam date and time: 05/07/2020 3:07 PM Age: 64 years old Clinical indication: Abdominal pain; Localized; Right lower quadrant (rlq); Prior surgery; Surgery date: 6+ months; Surgery type: Rllobectomy, vas, ; patient HX: C/O rlq to R testicle pain - R groin hematoma from cath 6 days ago; Additional info: Right flank pain TECHNIQUE: Imaging protocol: Computed tomography of the abdomen and pelvis without contrast. Radiation optimization: All CT scans at this facility use at least one of these dose optimization techniques: automated exposure control; mA and/or kV adjustment per patient size (includes targeted exams where dose is matched to clinical indication); or iterative reconstruction. COMPARISON: ES surgery / GI images 07/02/2019 6:53 AM RADIATION DOSE METRICS: Total DLP (mGy-cm): 929.01 FINDINGS: Tubes, catheters and devices: Right groin hematoma from recent catheterization as per history. Lungs: There are scattered regions of bilateral subpleural interstitial thickening, greatest at the lung bases, suggestive of pulmonary fibrosis. Mediastinal space: Small hiatal hernia. Liver: Normal. No mass. Gallbladder and bile ducts: Normal. No calcified stones. No ductal dilation. Pancreas: Normal. No ductal dilation. Spleen: Normal. No splenomegaly. Adrenal glands: Normal. No mass. Kidneys and ureters: Bilateral nonobstructing renal calculi. There is a 4 mm calculus in the bladder adjacent to the right UVJ.Mild to moderate hydronephrosis/hydroureter and associated inflammatory stranding. Stomach and bowel: Unremarkable. No obstruction. No mucosal thickening. Appendix: A normal appendix is identified. Intraperitoneal space: Unremarkable. No free air. No significant fluid collection. Vasculature: Unremarkable. No abdominal aortic aneurysm. Lymph nodes: Unremarkable. No enlarged lymph nodes. Urinary bladder: Unremarkable as visualized. Reproductive: Prostate gland indents the base of the bladder consistent with median lobe enlargement. Vasectomy changes. Bones/joints: Unremarkable. No acute fracture. Soft tissues: Unremarkable. CT/CT kidney stone [id number] IMPRESSION: 1. There is a 4 mm calculus in the bladder adjacent to the right UVJ with postobstructive changes seen on the right. Findings are consistent with a recently passed right ureteral calculus. 2. Bilateral nonobstructing renal calculi. 3. There are scattered regions of bilateral subpleural interstitial thickening, greatest at the lung bases, suggestive of pulmonary fibrosis. 4. Prostate gland indents the base of the bladder consistent with median lobe enlargement. Radiation Dose CTDIVOL = (mGy): DLP = 929.01 (mGy-cm)
[2020-05-07 15:40] VITALS: BP 125/88; PULSE 80; RESP 16; O2SAT 96
[2020-05-07 16:07] VITALS: BP 120/91; PULSE 86; RESP 18; O2SAT 94
[2020-05-08 20:04] LABS: Globulin 3.3 g/dL (1.3-4.6); Total Protein 7.1 g/dL (6.6-8.7)
== END 2020-05-07 16:07 | disposition home or self-care (01) ==
PROVIDERS: Emergency Provider Emergency Medicine; PCP Family Medicine
DX: N20.0 Calculus of kidney (principal); Z79.02 Long term (current) use of antithrombotics/antiplatelets; Z79.82 Long term (current) use of aspirin; J44.9 Chronic obstructive pulmonary disease, unspecified; E11.9 Type 2 diabetes mellitus without complications; Z90.2 Acquired absence of lung [part of]; Z87.891 Personal history of nicotine dependence
CPT/HCPCS: 12345; 74176; 80053; 81001; 85025; 96361; 96374; 96375; 99283; J2270; J2405; J7040

== ENCOUNTER → 2020-05-09 14:12 | Outpatient (BNVA) | payer OTHER, SELFPAY | PROVIDERS: PCP Family Medicine; Visit Provider Nurse Practitioner Family | DX: I25.119 Atherosclerotic heart disease of native coronary artery with unspecified angina pectoris (principal) | CPT/HCPCS: 80048 ==

== ENCOUNTER 2020-06-16 12:34 | Outpatient (CLI) | payer OTHER, SELFPAY ==
[2020-06-16 13:49] LABS: Creatine Phosphokinase 180 U/L (39-308)
[2020-06-19 14:28] LABS: Aldolase 6.4 U/L (< OR = 8.1)
[2020-06-19 15:28] LABS: Anti-Nuclear Antibody Screen NEGATIVE (NEGATIVE)
[2020-06-25 12:33] LABS: ANCA Interp P-ANCA POS (Negative)
== END 2020-06-16 12:35 | disposition home or self-care (01) ==
PROVIDERS: PCP Family Medicine; Visit Provider Internal Medicine Critical Care Medicine
DX: J84.10 Pulmonary fibrosis, unspecified (principal)
CPT/HCPCS: 36415; 82085; 82550; 83516; 86038; 86431; 87070; 87205; 87635; 87798

== ENCOUNTER 2020-06-21 06:53 | Outpatient (CLI) | payer OTHER, SELFPAY ==
--- NOTE | 2020-06-21 08:30 | CT_ITS ---
WS: [id number] CT CHEST TECHNIQUE: Noncontrast CT of the chest with coronal and sagittal reformatted images. CLINICAL INFORMATION: J84.10 - Pulmonary fibrosis, unspecified COMPARISON: CT screening December 07, 2019 DLP: 287.[address] scans at [facility] use at least one of these dose optimization techniques: automat ed exposure control; mA and/or kV adjustment per patient size (includes targeted exams where dose is matched to clinical indication); or iterative reconstruction. FINDINGS: 4-5 mm noncalcified nodules in the left upper lobe are unchanged. Moderate chronic paraseptal emphyse matous changes with fibrosis in the lung apices. A few calcified granulomas. Interstitial thickening worse in the mid and lower lungs. Diffuse interstitial and airspace infiltrates in right lower lobe. This is progressed from previous. Recommend correlation for pneumonia. No focal consolidation. No sig nificant air trapping on the expiratory images. Normal lung volumes. Less than 5% subpleural honeycom jami. Mild traction bronchiectasis. Normal caliber thoracic aorta. Aortic calcification. Coronary calcification. No mediastinal or hilar lymphadenopathy.Adrenal glands are normal. CT/CT chest wo con [id number] IMPRESSION: 1. Chronic paraseptal emphysematous changes. 2. Interstitial thickening with hazy groundglass infiltrates in the right lowe r lobe new from previous. Recommend correlation for pneumonitis. No focal pneum onia. 3. Less than 5% subpleural honeycombing. Findings can be seen with early UIP. 4. No mediastinal or hilar lymphadenopathy.
--- NOTE | 2020-06-21 10:50 | PFTS_ITS ---
Date of Study:06/21/20 Date of Dictation: MECHANICS: Forced vital capacity (FVC) is reduced. Forced expiratory volume in one second (FEV1) is reduced. FEV1/FVC is normal. FLOW VOLUME LOOP: Narrow with scooping. LUNG VOLUMES: Total lung capacity (TLC) is reduced. Residual volume (RV) is mildly reduced. DIFFUSING CAPACITY FOR CARBON MONOXIDE: Moderately reduced. INTERPRETATION: The postbronchodilator spirometry is consistent with moderate restriction. There is no significant postbronchodilator response. Lung volumes are consistent with moderate restriction. The flow volume loop is consistent with small airways disease. Gas exchange (DLCO) is moderately reduced. MTDD
== END 2020-06-21 06:54 | disposition home or self-care (01) ==
LOC: RT 06:54
PROVIDERS: PCP Family Medicine; Visit Provider Internal Medicine Critical Care Medicine
DX: J84.10 Pulmonary fibrosis, unspecified (principal); R91.8 Other nonspecific abnormal finding of lung field
CPT/HCPCS: 71250; 94060; 94618; 94726; 94729; J7611

== ENCOUNTER 2020-06-22 06:06 | Day surgery (SDC) | payer OTHER, SELFPAY ==
[2020-06-21 17:28] VITALS: BMI 25.1
[2020-06-22 06:50] LABS: Glucose Point of Care 107 mg/dL (70-110)
[2020-06-22] MEDS: sodium chloride 0.9% 1,000 ML 30 ML IV (06:54)
--- NOTE | 2020-06-22 06:56 | P.ANESASSM_ITS ---
Pre-Anesthetic Assessment Pre-Anesthetic Assessment: Height/Weight: Height 1.78 m Weight 79.379 kg Preop Diagnosis: Pulmonary fibrosis Proposed Procedure: Operation Date: 06/22/20 07:10 Proposed Procedures p Bronchoscopy 28222 R91.8(Not Applicable) - Joaquín Mayfield MD Was Beta Mary Lou taken within 24 hours: N/A Last intake: Intake Last Liquid Date 06/21/20 Last Liquid Time 17:00 Last Solid Date 06/21/20 Last Solid Time 17:00 Social: Social History: Tobacco and No alcohol Exam: Pre-Anes Outpt Exam: alert, oriented x 3 and regular rate & rhythm Additional Exam Findings (including area of procedure): Decreased BS Airway: Submandibular: WNL Cervical ROM: WNL MP: 2 Dentition: False Pulmonary: Pulmonary: COPD Comments: Pulmonary fibrosis/interstitial lung dz CV/HEM: CV/HEM: CAD (stent) Anesthetic Plan: ASA status: 3 Anesthesia: General Risk of > 500 ml blood loss (7ml/kg in children): No Meds/Allergies Current Medications: Current Medications Generic Name Dose Route Start Last Admin Trade Name Freq PRN Reason Stop Dose Admin Sodium Chloride 1,000 mls @ 30 ml s/hr 06/22/20 07:00 06/22/20 06:54 Sodium Chloride 0.9% IV 06/23/20 06:59 30 mls/hr .Q24H ANISHA Administration PFSH Anesthesia PFSH: Medical History 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 COPD (chronic obstructive pulmonary disease) Coronary artery disease Cubital tunnel syndrome on right Diabetes Diabetes Pulmonary nodule Surgical absence of teeth Tobacco abuse Surgical History H/O neck surgery H/O: vasectomy History of ankle surgery History of dental surgery History of facial surgery History of lung biopsy S/P lobectomy of lung Family History Father Cancer Hypertension Mother Diabetes Brother Diabetes Sister Diabetes Father Cancer Prostate Social History Smoking and tobacco status: former smoker Quit status (tobacco): has quit using tobacco Year quit tobacco: 2019 - 2PPD x 40 Years Second hand smoke exposure: No Alcohol intake: current Alcohol intake frequency: holidays/special occasions only Lives independently: Yes Household members: none Housing: House Marital status: Number of children: 3 Number of grandchildren: 4 Highest education level completed: High School Graduate service: No Current occupational status: retired and disabled Pets and animals: Yes 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 History of recent travel: No Leisure activites: hunting and fishing Current gender identity: Male Dian/Scientology: Rastafari Data Anesthesia Other Labs: Laboratory Results - last 48 hr 06/22/20 06:47 POC Glucose 107 Cardiac Studies: No Data to Display
[2020-06-22 07:00] VITALS: BP 112/61; PULSE 92; RESP 18; O2SAT 91
--- NOTE | 2020-06-22 07:18 | W.PM.OPSUD ---
Surgery/Procedure H&P Update DATE OF PROCEDURE: June 22, 2020 DATE H&P PERFORMED: 04/18/20 H&P UPDATE INFORMATION: I have reviewed H&P completed within last 30 days, I have examined patient prior to procedure and No changes to prior documentation PREOP DIAGNOSIS: Pulmonary fibrosis PLANNED PROCEDURE: Bronchoscopy inspection of the airway, bronchoalveolar lavage and control of bleeding Operation Date: 06/22/20 07:10 Proposed Procedures p Bronchoscopy 07270 R91.8(Not Applicable) - Biplab MD Tran
[2020-06-22] MEDS: lidocaine 1% INJ 20 mL XX (07:26)
--- NOTE | 2020-06-22 07:34 | PM.OP ---
Operative Report Date of procedure: June 22, 2020 Pre-op Diagnosis: Pulmonary fibrosis Post-op diagnosis: same Brief History: This is a 64-year-old gentleman coming in for bronchoscopic evaluation for pulmonary fibrosis. Procedure: Name of the procedure: Bronchoscopy with bronchoalveolar lavage and control of bleeding. Indication: Pulmonary fibrosis Anesthesia: Monitored anesthesia care. Local anesthesia: 1% lidocaine instilled on the vocal cords, 3 mL, 1% lidocaine in the airway and sofie a total of 7 mL. Description of the procedure: The patient was positioned optimally. Monitored anesthesia care was initiated by the anesthesia team. The bronchoscope was advanced through the mouth. The vocal cords and epiglottis were anesthetized with 1% lidocaine. The bronchoscope was passed through the vocal cords and the airway was anesthetized with 1% lidocaine again. The trachea appeared normal. The sofie was sharp. The sofie, right and left mainstem bronchus were anesthetized with 1% lidocaine. In a systematic manner bilateral airways were then examined. The bronchoscope was advanced into the left mainstem bronchus. The left upper lobe, lingula and lower lobe bronchi were examined up to the third subsegmental level. No endobronchial lesion erythema or mucous plugging was noted. The bronchoscope was then introduced into the right mainstem bronchus. Occluded right upper lobe bronchus was seen. This is due to the previous history of right upper lobectomy. The bronchoscope was then introduced in the right middle lobe and lower lobe bronchi. The segments were examined up to the third subsegmental level. No airway abnormalities were identified. Bronchoalveolar lavage was performed from the anterior segment of the right lower lobe. A total of 120 cc of fluid was instilled in two instillations. A total of 40 cc of cloudy bronchoalveolar lavage fluid was obtained. The bronchoalveolar lavage specimen was sent for cell count and differential, Gram stain and culture, fungal stain and culture, AFB stain and culture, viral panel PCR, Aspergillus galactomannan, beta D glucan and cytology. Complications: There is no immediate complications. Duration of the procedure: 5 minutes.
[2020-06-22 07:37] VITALS: BP 105/73; PULSE 100; RESP 18; TEMP 36.7; O2SAT 91
[2020-06-22 07:40] VITALS: BP 103/73; PULSE 100; RESP 18; O2SAT 91
[2020-06-22 07:45] VITALS: BP 88/66; PULSE 102; RESP 18; O2SAT 90
--- NOTE | 2020-06-22 07:46 | SUR.PHASEI ---
PT AWAKE ALERT COUGHING FORCEFULLY AND FREQUENTLY SATS 90-91% ON 2LNC PT VERBALIZED APPROP VSS PT TAKING OCC ICE CHIP
--- NOTE | 2020-06-22 07:56 | SUR.PHASEI ---
PT AWAKE ALERT REQUESTS COFFEE, VSS, IV PATENT. REPORT CALLED
[2020-06-22 08:02] VITALS: BP 108/74; PULSE 88; RESP 18; TEMP 36.4; O2SAT 99
[2020-06-22 08:18] VITALS: BP 109/74; PULSE 89; RESP 18; O2SAT 100
[2020-06-22 09:26] LABS: Color, Bronc Wash Colorless
[2020-06-22 09:27] LABS: Apprearance, Bronch Wash Turbid (CLEAR)
[2020-06-22 09:33] LABS: PATH Referral Yes
[2020-06-22 09:34] LABS: Bronch Source Right Lower Lobe
--- NOTE | 2020-06-22 10:03 | ANE.PACU2 ---
Inpatient post-anesthesia follow up: Airway intact: Yes Vital signs: Temperature 97.5 F Pulse Rate 89 Respiratory Rate 18 Blood Pressure 109/74 Pulse Oximetry 100 Oxygen Delivery Me thod Room Air Oxygen Flow Rate 2 Fraction of Inspir ed Oxygen Hydration adequate: Yes Nausea and vomiting: No Pain level: 1 Mental status: Baseline
[2020-06-22 12:44] LABS: Total Cells Counted Bronch 300
[2020-06-24 23:07] LABS: Legionella Specimen Source BRONCH WASH
[2020-06-29 20:07] LABS: Aspergillus AG,EIA DETECTED; Aspergillus AG,EIA, Index 1.31
== END 2020-06-22 08:36 | disposition home or self-care (01) ==
PROVIDERS: PCP Family Medicine; Visit Provider Internal Medicine Critical Care Medicine
PROC: 0BJ08ZZ Inspection of Tracheobronchial Tree, Via Natural or Artificial Opening Endoscopic (ICD-10-PCS; CPT 31622; principal; 2020-06-22 07:00)
DX: J84.10 Pulmonary fibrosis, unspecified (principal); J44.9 Chronic obstructive pulmonary disease, unspecified; I25.10 Atherosclerotic heart disease of native coronary artery without angina pectoris; Z95.5 Presence of coronary angioplasty implant and graft; E11.9 Type 2 diabetes mellitus without complications; Z87.891 Personal history of nicotine dependence
CPT/HCPCS: 31624; 36416; 80500; 82962; 87015; 87070; 87102; 87116; 87205; 87206; 87278; 87305; 87798; 87801; 88112; 88305; 89050; 96360; J2704; J3010; J7030

== ENCOUNTER 2020-07-01 14:29 | Inpatient (IN) | payer OTHER, SELFPAY ==
[2020-07-01] VITALS (11 sets, daily range): BP systolic 93–126; BP diastolic 63–77; PULSE 76–98; RESP 14–28; TEMP 36.6–37.2; O2SAT 74–97; BMI 24.4
--- NOTE | 2020-07-01 15:01 | CTR_ITS ---
PROCEDURE INFORMATION: Exam: CT Chest Without Contrast; Diagnostic Exam date and time: 07/01/2020 3:27 PM Age: 64 years old Clinical indication: Shortness of breath; Prior surgery; Surgery date: 6+ months; Surgery type: Stent, R lobectomy; Patient HX: HX of pulmonary fibrosis and copd C/O difficulty breathing and cp; Additional info: SOB TECHNIQUE: Imaging protocol: Diagnostic computed tomography of the chest without contrast. Radiation optimization: All CT scans at this facility use at least one of these dose optimization techniques: automated exposure control; mA and/or kV adjustment per patient size (includes targeted exams where dose is matched to clinical indication); or iterative reconstruction. COMPARISON: CT chest con [id number] 06/21/2020 7:50 AM RADIATION DOSE METRICS: Total DLP (mGy-cm): 604.01 FINDINGS: Lungs: Severe emphysema. Scattered honeycombing. Diffuse reticular interstitial opacities. In the lower lobes increased ground-glass attenuation opacities left greater than right. No obstructing endobronchial lesion. Blebs and small bulla in the upper lobes. Small noncalcified perifissural nodule anterior right lower lobe 7 mm diameter on axial series 3, image 31. Not clear if this is new, or not seen on the prior secondary to slice selection. Overall, ground-glass attenuation in the right lower lobe appears reduced from prior. Pleural spaces: Unremarkable. No pneumothorax. No pleural effusion. Heart: Unremarkable. No cardiomegaly. No pericardial effusion. Aorta: Unremarkable. No aortic aneurysm. Lymph nodes: Unremarkable. No enlarged lymph nodes. Bones/joints: Mild anterior vertebral body wedging of T11 without acute fracture lucency. No aggressive bone lesion. Thoracic spinal alignment is anatomic. Soft tissues: Unremarkable. CT/CT chest con [id number] IMPRESSION: 1. Interstitial fibrosis of the lungs with nonspecific pattern. Regions of honeycombing in the posterior lower lobes. UIP cannot be excluded. Nonspecific interstitial pneumonia not excluded. 2. Overall degree of ground-glass attenuation in the lungs appears reduced in the right lower lobe compared with prior of uncertain significance. However, ground-glass features in the lingula and the inferior aspect of the left lower lobe appear increased from the recent prior on 06/21/2020 representing nonspecific pneumonitis pattern. 3. Right lung perifissural noncalcified pulmonary nodule. Recommend CT chest follow-up without contrast in 12 months. Radiation Dose CTDIVOL = (mGy): DLP = 604.01 (mGy-cm)
[2020-07-01 15:28] LABS: ABG PCO2 27.5 mmHg (35-45); ABG PH Result 7.47 (7.35-7.45); Arterial Blood Gas Hematocrit 42.7 % (42-52); Blood Gas Allen Test Pos; Blood Gas Operator Identificat glc; Blood Gas Sample Site Radial, left; Blood Gas Sample Type Arterial; HCO3 ABG 20.2 mmol/L (22-26); Oxygen Device ROOM AIR
[2020-07-01 15:36] LABS: Basophils % 0.1 %; Hematocrit 39.9 % (42.0-52.0); Hemoglobin 13.2 g/dL (11.7-16.6); Lymphocytes # 1.2 10^3/uL (0.8-4.8); Lymphocytes % 7.9 %; Mean Corpuscular HGB Conc 33.1 g/dL (30.0-36.0); Mean Corpuscular Hemoglobin 27.1 pg (28.0-34.0); Mean Corpuscular Volume 81.9 fL (80-94); Mean Platelet Volume 8.8 fL (7.4-10.4); Monocytes # 0.4 10^3/uL (0.2-0.9); Monocytes % 2.9 %; Neutrophils # 13.18 10^3/uL (1.8-7.7); Neutrophils % 88.4 %; Nucleated Red Blood Cells % 0 %; Platelet Count 313 10^3/cmm (130-400); Red Blood Count 4.87 10^6/uL (4.1-5.3); Red Cell Distribution Width 14.4 % (12.1-15.1); White Blood Count 14.9 10^3/uL (4.0-10.0)
[2020-07-01 16:15] LABS: Lactic Sepsis W/Reflex 1.3 mmol/L (0.5-2.2)
[2020-07-01 16:24] LABS: Alanine Aminotransferase 15 U/L (0-41); Albumin Level 3.6 g/dL (3.5-5.2); Alkaline Phosphatase 77 IU/L (40-130); Anion Gap 14.6 (5-19); Aspartate Amino Transferase 18 U/L (0-40); Blood Urea Nitrogen 23 mg/dL (8-23); Carbon Dioxide 18 mmol/L (22-29); Chloride 97 mmol/L (98-107); Globulin 3.6 g/dL (1.3-4.6); Glomerular Filtration Rate 85.5 mL/min (90-130); Glucose 128 mg/dL (65-115); NT Pro B Type Natriuretic Pept 84 pg/mL (0-125); Osmolality Calculated 263 mOsm/kg (285-295); Potassium 5.6 mmol/L (3.5-5.1); Sodium 124 mmol/L (136-145); Total Bilirubin 0.3 mg/dL (0.15-1.2); Total Protein 7.2 g/dL (6.6-8.7)
[2020-07-01] MEDS: sulfamethoxazole-trimeth inj 400 MG in dextrose 5 % 500 ML 500 MG IV ×2 (17:32→23:42)
--- NOTE | 2020-07-01 18:20 | PC.NURSE ---
Nurse notified rt about pts o2 level
[2020-07-01 19:29] LABS: Creatine Phosphokinase 73 U/L (39-308)
--- NOTE | 2020-07-01 20:20 | PC.NURSE ---
Unwitnessed fall Patient put call light on to notify staff of unwitnessed fall. He states he was up to shut the light off and slipped due to his nontread socks. Nonslip socks were placed. VS obtained, see below: T 98.1 BP 109/70 HR 98 Po2 74% on 6L NC Increased oxygen to 10L nasal cannula, notifed RT, Chris, who was outside in [place]. Oximask placed on patient at 15L. Over the next 3-5 minutes O2 sats slowly increased and stabilized. Notified Dr. Castillo by phone. No new orders received.
--- NOTE | 2020-07-01 20:33 | P.HP_ITS ---
Providers/Chief Complaint Admitting Physician: Gonzalo Cobian Primary Care Provider: Daniel Nogueira DO Chief Complaint: DIFF BREATHING, CP/ SENT BY DR MALDONADO History of Present Illness Very pleasant 64-year-old gentleman with emphysema, history of right lung aspergilloma and resection in 2011, former smoker, quit in 2019, with interstitial lung disease, on oxygen 2 L nasal cannula as needed only, with coronary disease, recent stent placement in April, currently undergoing as sessment as to the etiology of interstitial lung disease, with recently requested induce sputum PCP PCR positive. Has been undergoing treatment with Bactrim and prednisone since 06/23, however, also with returning detected Aspergillus antigen from sample taken during bronchoscopy 06/22. He is also r eferred for additional assessment with rheumatology, with noted positive p-ANCA antibody, titer 1:160, with negative ABE, positive rheumatoid factor 22 and has had an appointment set for Friday. He came to ER for evaluation due to worsening of shortness of breath, especially with exertion. Noted to be saturating as low as in the low 70s on room air. In ER he is initially requiring up to 8 L of oxygen by nasal cannula after exertion. Subsequently at rest doing well on 2-3 L. ABG 7.47/27.5/73/20 on room air. Underwent assessment by CT chest, with finding of interstitial fibrosis of the lungs with nonspecific pattern. Regions of honeycombing in posterior lower lobes. UIP cannot be excluded. Nonspecific interstitial pneumonia not excluded. Overall degree of groundglass attenuation in the lungs appears reduced in the right lower lobe compared to prior. Groundglass in lingula and inferior aspect of left lower lobe increased. Noted right lung perifissural noncalcified pulmonary nodule. He is started on IV Bactrim, received dose of Solu-Medrol 125 mg, and voriconazole 500 mg twice daily is added. He otherwise denies any recent fever or chills. Has been having some aching in his muscles recently with exertion. No pain. Denies any rash. Joint swelling. Denies any headache, said no nausea vomiting or diarrhea. No conjunctivitis or dysuria. Review of Systems Const: Reports: other (mild exertional muscle aches); Denies: fever(s), chills or malaise Eyes: Denies: change in vision or eye redness ENMT: Denies: throat pain, oral sores or ear or mastoid pain Card: Reports: dyspnea on exertion; Denies: chest pain, edema or pre-syncope Resp: Reports: dyspnea and non-productive cough; Denies: change in phlegm color or hemoptysis GI: Denies: abdominal pain, nausea, vomiting, diarrhea, constipation, hematochezia or melena : Denies: flank pain, difficulty urinating, urinary frequency or hematuria Musc: Denies: back pain, joint swelling or joint redness Skin/Breast: Denies: rash, sores or new lesions Neuro: Denies: headache(s), numbness in extremities, weakness in extremities, dizziness, confusion or seizure-like activity Endo: Denies: polyuria or polydipsia Jamari/Lymph: Denies: easy bleeding or purpura All/Imm: Denies: urticaria, throat swelling or tongue swelling Medications/Allergies Home Medications Medication Instructions Recorded Confirmed Last Taken Type escitalopram oxalate 10 mg tablet 20 mg PO DAILY@0630 tab 03/14/20 07/01/20 07/01/20 History nitroglycerin 0.4 mg sublingual 0.4 mg SUBLINGUAL Q5M PRN #25 tab 04/18/20 07/01/20 Unknown Rx tablet simvastatin 40 mg PO BEDTIME@1730 05/02/20 07/01/20 06/30/20 History megestrol 400 mg/10 mL (40 mg/mL) 400 mg PO DAILY #480 ml 06/26/20 07/01/20 07/01/20 Rx oral suspension Adult Aspirin Regimen 81 mg PO DAILY@0630 07/01/20 07/01/20 07/01/20 History Bactrim DS 2 tab PO TID@0630,1230,1730 07/01/20 07/01/20 07/01/20 History Breztri Aerosphere 2 inh INHALATION BID@0630,1730 07/01/20 07/01/20 07/01/20 History Protonix 40 mg PO DAILY@1730 07/01/20 07/01/20 06/30/20 History clonazepam 0.25 mg PO BID@0630,1730 07/01/20 07/01/20 07/01/20 History clopidogrel 75 mg PO DAILY@0630 07/01/20 07/01/20 07/01/20 History cyclobenzaprine 10 mg PO DAILY 07/01/20 07/01/20 06/29/20 History metoprolol succinate 12.5 mg PO DAILY@0630 07/01/20 07/01/20 07/01/20 History Allergies Allergy/AdvReac Type Severity Reaction Status Date / Time acetaminophen [From [place]] Allergy ADR-Itching Verified 06/21/20 17:27 hydrocodone [From [place]] Allergy ADR-Itching Verified 06/21/20 17:27 insect venom Allergy ALGY-Difficulty Verified 06/15/20 18:25 Swallowing PFSH Acute PFSH: Medical History 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 COPD (chronic obstructive pulmonary disease) Coronary artery disease Cubital tunnel syndrome on right Diabetes Diabetes Pulmonary nodule Surgical absence of teeth Tobacco abuse Surgical History H/O neck surgery H/O: vasectomy History of ankle surgery History of dental surgery History of facial surgery History of lung biopsy S/P lobectomy of lung Family History Father Cancer Hypertension Mother Diabetes Brother Diabetes Sister Diabetes Father Cancer Prostate Social History Smoking and tobacco status: former smoker Quit status (tobacco): has quit using tobacco Year quit tobacco: 2019 - 2PPD x 40 Years Second hand smoke exposure: No Alcohol intake: current Alcohol intake frequency: holidays/special occasions only Lives independently: Yes Household members: none Housing: House Marital status: Number of children: 3 Number of grandchildren: 4 Highest education level completed: High School Graduate service: No Current occupational status: retired and disabled Pets and animals: Yes 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 History of recent travel: No Leisure activites: hunting and fishing Current gender identity: Male Dian/Taoist: Taoism Vitals/I&O/Wt Last Vital Signs Temp 98.9 F 07/01/20 19:41 Pulse 94 07/01/20 19:41 Resp 18 07/01/20 19:41 BP 111/68 07/01/20 19:41 Pulse Ox 90 07/01/20 19:41 07/01/20 07/01/20 07/01/20 06:59 14:59 22:59 Intake Total 775 / 775 Output Total 425 / 425 Balance 350 / 350 Weight last 48 hrs Weight 79.379 kg Physical Exam Const: COMMON NORMALS: no acute distress, patient oriented x3 and alert G ENERAL APPEARANCE: cooperative and comfortable ORIENTATION/CONSCIOUSNESS: Yes awake OTHER: Conversant. In good spirits. Feeling better. HENMT: COMMON NORMALS: oropharynx normal Neck/C-Spine: COMMON NORMALS: no JVD Resp: COMMON NORMALS: normal respiratory effort EFFORT & INSPECTION: Yes able to speak in complete sentences AUSCULTATION: diminished lung sounds (Mildly diminished, air movement audible) OTHER: Few faint crackles bilaterally. No wheezing. Cardio: COMMON NORMALS: no JVD, regular rhythm, S1 normal heart sound present, S2 normal heart sound present and No murmurs present (Cardio) RHYTHM: regular rhythm HEART SOUNDS: S1 normal heart sound present and S2 normal heart sound present GI: COMMON NORMALS: Normal to inspection, nondistended, normoactive bowel sounds present, Soft to palpation and non-tender PALPATION: Yes Soft to palpation Extremity: COMMON NORMALS: no joint enlargement and no pedal edema Neuro: COMMON NORMALS: patient oriented x3 and moves all extremities Skin: COMMON NORMALS: no rashes or lesions noted GENERAL SKIN EXAM: no rashes or lesions noted Data : 07/01/20 15:26 07/01/20 15:26 A&P Assessment and plan (1) Pneumocystis jiroveci pneumonia: Hypoxic with exertion. Worsening groundglass opacities in left lower lobe, improvement in the right. Recently more short of breath. 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 Repeat induced sputum for PCP PCR. Bactrim IV. Increase steroids to 60 mg prednisone daily. Received 125 mg slight Medrol in ER. With hyponatremia, sodium 124, hyperkalemia, potassium 5.6. Monitor electrolytes which may be affected by Bactrim. Monitor renal function. Status: Acute (2) Acute hypoxemic respiratory failure: Secondary to PCP pneumonia, possible aspergillosis. Unclear whether may have component of underlying interstitial lung disease secondary to autoimmune condition with opportunistic infections. P-ANCA positive. Pending additional rheumatologic assessment. We will go ahead and request sputum cultures. Repeating the sputum for PCP PCR. Obtain urine bacterial antigens. Treatment of PCP as above. Additional coverage for possible aspergillosis with voriconazole. Steroids. Continuous pulse oximetry. Avoid hyperoxia, target saturation 88-92%. Oxygen therapy. Desaturating worse on exertion. Appears not long after arrival in his room, worse stable on 2-3 L at rest in ER, try to get up without oxygen and fell down likely due to again becoming hypoxic. Bedrest. Discussed with overnight physician, low threshold for transfer to ICU. Has been assessed for COVID-19 on 06/16, negative PCR. With hypoxia, mild headache, will assess with rapid antigen. Breathing treatments. I-S. Status: Acute (3) Aspergillosis: Voriconazole. Additionally assess Fungitell. History of aspergilloma, although at this time no changes to suggest recurrence on CT. Status: Acute (4) P-ANCA titer positive: 1:160 titer. RF +22 (upper normal 14), although significance of this is not clear as this may increase with age. ABE negative. On discussion with his daughter there may be additional tests that were performed already. Will request records from PCPs office to see what other marcia ts have been already done. Pending additional rheumatologic assessment. Status: Acute (5) Interstitial lung disease: Possible interstitial lung disease in addition to emphysema. He states a number of tests including HIV were tested at PCPs office. Will request records. Status: Acute (6) Emphysema of lung: At home previously oxygen support 2 L as needed. Treat underlying infections as above. Antibiotics, steroids as above. DuoNeb treatments. Sputum culture. Status: Acute (7) Hyponatremia: Sodium 124. Appears euvolemic. May be secondary to acute pulmonary condition, pneumocystis pneumonia. Monitor with Bactrim treatment which may a lso affect sodium. Treat pulmonary conditions. Regular diet. Urine studies. If not tolerating Bactrim may need alternative agent. Status: Acute (8) Hyperkalemia: Low potassium diet. Monitor potassium with Bactrim therapy. Status: Acute (9) Coronary artery disease: Stenting of LAD in April. Ejection fraction 60% during coronary angiography with noted normal LV function. Reports has not been having any chest pain recently, denies needing nitroglycerin. Continue aspirin, Plavix, beta-nash, statin. Status: Acute Qualifiers: Coronary Disease-Associated Artery/Lesion type: [place] artery [place] vs. transplanted heart: [place] heart Associated angina: with unspecified angina Qualified Code(s): I25.119 - Atherosclerotic heart disease of [place] coronary artery with unspecified angina pectoris (10) Muscular aches: Reports mild muscle aches recently, especially with exertion. May be secondary to hypoxia. Lactic acid normal. Check CK, LDH. Aldolase. If CK elevated, or worsening or persistent consider holding statin. Additional assessment. Status: Acute Additional A&P Information History of diabetes: Recorded in the chart, although he is not on any medications, appears possibly remote history. However, currently on steroids. Will maintain consistent carbohydrate diet. Attestations Medical Necessity Statement*: Admission of over 2 midnights is admitted for assessment management of pneumocystis pneumonia with acute hypoxic respiratory failure, possible aspergillosis, and gentleman with underlying emphysema, possible interstitial lung disease, coronary artery disease. Coding Level of Care Code Acute Application Spec for [facility]ety Diagnoses Pneumocystis jiroveci pneumonia B59 Acute hypoxemic respiratory failure J96.01 Aspergillosis B44.9 P-ANCA titer positive R76.8 Interstitial lung disease J84.9 Emphysema of lung J43.9 Hyponatremia E87.1 Hyperkalemia E87.5 Coronary artery disease I25.119 Coronary Disease-Associated Artery/Lesion type: [place] artery [place] vs. transplanted heart: [place] heart Associated angina: with unspecified angina Muscular aches M79.10
[2020-07-01 21:41] LABS: Lactate Dehydrogenase 369 U/L (135-225)
[2020-07-01 22:44] LABS: Urine Random Sodium 78 mmol/L
[2020-07-01] MEDS: pantoprazole DR 40 mg Tablet PO (23:26)
[2020-07-01] MEDS: HYDROcodone-acetaminophen 5-325 mg Tablet 1 TAB PO (23:26)
[2020-07-01] MEDS: CLONazepam 0.5 mg Tablet 0.25 MG PO (23:27)
[2020-07-01] MEDS: heparin 5,000 unit/mL INJ 1 mL 5000 UNIT SUBCUT (23:34)
--- NOTE | 2020-07-01 23:37 | ED_ITS ---
HPI - SOB/Dyspnea General: Chief Complaint: Shortness of Breath/Dyspnea Stated Complaint: DIFF BREATHING, CP/ SENT BY DR MAYFIELD Time Seen by Provider: 07/01/20 14:48 Source: patient and old records reviewed Mode of arrival: ambulatory Limitations: no limitations History of Present Illness: HPI Narrative: Patient is a 64-year-old male with a history of COPD who is being followed by the customer solutions specialist. He is currently being worked up for worsening of his respiratory status. As part of his work-up he was positive for p-ANCA, bronchoscopy with BAL showed aspergillosis and he also tested positive for PCP. He had been on outpatient Bactrim. Today his daughter noticed that his oxygen saturation was in the 70s and the patient was really having trouble breathing so he was brought to the emergency department to be evaluated. On evaluation he is obviously in mild respiratory distress and walking from the door to his bed made him hypoxic on oxygen with oxygen saturation about 85 and he was tachypneic and working to breathe. He denies any fever, has some cough. Has been using his oxygen only intermittently at 2 L but had to be turned up to 5 L in the emergency department. I spoke with the customer solutions specialist, Dr. Mayfield prior to the patient's arrival and he advised that we admit the patient and we can consult him when the patient arrives. Pertinent past history: COPD Associated symptoms: Reports cough; Deny abdominal pain, chest congestion, chest pain, diaphoresis, dizziness, extremity pain, fever(s), hemoptysis, lightheadedness, myalgias, nausea, orthopnea, palpitations, paresthesias, polydipsia, polyuria, rash, sense of impending doom, syncope or vomiting Treatment prior to arrival: oxygen Related Data: Home oxygen amount: other Review of Systems General: Reports: 10 or more systems reviewed and unremarkable except in HPI and below Const: Denies: fever(s) or diaphoresis Eyes: Denies: change in vision or blurry vision ENMT: Denies: throat pain, enlarged tonsils, odynophagia, hoarseness, mouth pain or swelling of lips/tongue Card: Denies: chest pain, palpitations, lightheadedness, syncope or orthopnea Resp: Denies: hemoptysis or chest congestion GI: Denies: abdominal pain, nausea or vomiting : Denies: flank pain, dysuria, urinary frequency, urinary urgency or urinary hesitancy Musc: Denies: extremity pain Skin/Breast: Denies: rash, pruritus or erythema Neuro: Denies: dizziness Endo: Denies: polyuria or polydipsia PFSH ED PFSH: Medical History 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 COPD (chronic obstructive pulmonary disease) Coronary artery disease Cubital tunnel syndrome on right Diabetes Diabetes Pulmonary nodule Surgical absence of teeth Tobacco abuse Surgical History H/O neck surgery H/O: vasectomy History of ankle surgery History of dental surgery History of facial surgery History of lung biopsy S/P lobectomy of lung Family History Father Cancer Hypertension Mother Diabetes Brother Diabetes Sister Diabetes Father Cancer Prostate Social History Smoking and tobacco status: former smoker Quit status (tobacco): has quit using tobacco Year quit tobacco: 2020 - 2PPD x 40 Years Second hand smoke exposure: No Alcohol intake: current Alcohol intake frequency: holidays/special occasions only Lives independently: Yes Household members: none Housing: House Marital status: Number of children: 3 Number of grandchildren: 4 Highest education level completed: High School Graduate service: No Current occupational status: retired and disabled Pets and animals: Yes 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 History of recent travel: No Leisure activites: hunting and fishing Current gender identity: Male Dian/Christian: Amish Physical Exam Const: COMMON NORMALS: no acute distress, average body habitus, patient oriented x3, no limitations, healthy appearing, alert and well nourished HENMT: COMMON NORMALS: normocephalic, atraumatic and moist oral mucous membranes HEAD & SCALP: normocephalic and atraumatic Neck/C-Spine: COMMON NORMALS: no meningeal signs and no JVD Resp: COMMON NORMALS: clear to auscultation bilaterally and percussion normal EFFORT & INSPECTION: Yes tachypneic, Yes respiratory distress, Yes pursed lip breathing, Yes labored and Yes uses accessory muscles AUSCULTATION: clear to auscultation bilaterally PERCUSSION: percussion normal Cardio: COMMON NORMALS: no JVD, regular rate, regular rhythm, S1 normal heart sound present, S2 normal heart sound present, No gallops present (Cardio), No clicks present (Cardio), No murmurs present (Cardio), No rub (Cardio) and Peripheral pulses 2+ throughout RATE: regular rate RHYTHM: regular rhythm HEART SOUNDS: S1 normal heart sound present and S2 normal heart sound present PERIPHERAL PULSES: Peripheral pulses 2+ throughout GI: COMMON NORMALS: Normal to inspection, nondistended, normoactive bowel sounds present, Soft to palpation, non-tender, No hepatosplenomegaly present, no masses and no bruits PALPATION: Yes Soft to palpation and Yes No hepatosplenomegaly present : COMMON NORMALS: Yes no CVA tenderness BLADDER/KIDNEY EXAM: Yes no CVA tenderness Back/Pelvis: COMMON NORMALS: no CVA tenderness Extremity: COMMON NORMALS: normal to inspection, full ROM, capillary refill normal, no calf tenderness and no pedal edema Neuro: COMMON NORMALS: patient oriented x3 SENSORIUM/ORIENTATION: Yes alert MENINGEAL SIGNS: Yes no meningeal signs Skin: COMMON NORMALS: no rashes or lesions noted, no wounds, turgor normal, no jaundice, no petechiae and no mottling GENERAL SKIN EXAM: no rashes or lesions noted and turgor normal Course Consultations: Consultation #1: discussed the patient with Dr. Cobian, hospitalist and he kindly accepted patient to his service. Time: 16:24 Vital Signs: Vital signs: Vital Signs Temperature 98.1 F 07/01/20 20:00 Pulse Rate 88 07/01/20 21:09 Respiratory Rate 18 07/01/20 21:09 Blood Pressure 109/70 07/01/20 20:00 Pulse Oximetry 97 07/01/20 21:09 MDM - SOB/Dyspnea MDM Narrative: Medical decision making narrative: 64-year-old male with a history of COPD but who on outpatient work-up appears to have some significantly worsening lung disease including aspergillosis and PCP pneumonia. He has cl inically deteriorated and was in respiratory failure on arrival. He required increased amounts of oxygen and is being admitted to the hospitalist service for further evaluation and management. While he is in the hospital he will be consulted on by the customer solutions specialist. Medical Records: Attestation: I reviewed the patient's medical records. Lab Data: Attestation: I reviewed the patient's lab results. Labs: Lab Results 07/01/20 07/01/20 07/01/20 Range/Units 15:18 15:26 15:26 WBC 14.9 H (4.0-10.0) 10^3/ uL RBC 4.87 (4.1-5.3) 10^6/u L Hgb 13.2 (11.7-16.6) g/dL Hct 39.9 L (42.0-52.0) % MCV 81.9 (80-94) fL MCH 27.1 L (28.0-34.0) pg MCHC 33.1 (30.0-36.0) g/dL RDW 14.4 (12.1-15.1) % Plt Count 313 (130-400) 10^3/c mm MPV 8.8 (7.4-10.4) fL Neut % (Auto) 88.4 % Lymph % (Auto) 7.9 % Bland % (Auto) 2.9 % Eos % (Auto) 0.0 % Baso % (Auto) 0.1 % Neut # (Auto) 13.18 H (1.8-7.7) 10^3/u L Lymph # (Auto) 1.2 (0.8-4.8) 10^3/u L Bland # (Auto) 0.4 (0.2-0.9) 10^3/u L Eos # (Auto) 0.0 (0.0-0.8) 10^3/u L Baso # (Auto) 0.0 (0.0-0.1) 10^3/u L Nucleated RBC % (a uto) 0 % Nucleated RBCs # 0.0 /100WBC Specimen Type Arterial Sample Site Radial, left ABG pH 7.47 H (7.35-7.45) ABG pCO2 27.5 L (35-45) mmHg ABG pO2 73.0 L (80.0-100.0) mmH g ABG HCO3 20.2 L (22-26) mmol/L ABG Base Excess -2.0 (-2.0-2.0) mmol/ L Erickson Test Pos Hematocrit 42.7 (42-52) % O2 Delivery Device Room air FiO2 21.0 % Resident Care Assistant ID glc Sodium 124 L (136-145) mmol/L Potassium 5.6 H (3.5-5.1) mmol/L Chloride 97 L (98-107) mmol/L Carbon Dioxide 18 L (22-29) mmol/L Anion Gap 14.6 (5-19) BUN 23 (8-23) mg/dL Creatinine 0.9 (0.7-1.2) mg/dL GFR Calculation 85.5 L (90-130) mL/min Glucose 128 H (65-115) mg/dL Calculated Osmolal ity 263 L (285-295) mOsm/k g Lactic Acid (0.5-2.2) mmol/L Calcium 9.0 (8.5-10.5) mg/dL Total Bilirubin 0.3 (0.15-1.2) mg/dL AST 18 (0-40) U/L ALT 15 (0-41) U/L Alkaline Phosphata se 77 (40-130) IU/L Lactate Dehydrogen ase (135-225) U/L Creatine Kinase (39-308) U/L NT-Pro-B Natriuret Pep 84 (0-125) pg/mL Total Protein 7.2 (6.6-8.7) g/dL Albumin 3.6 (3.5-5.2) g/dL Globulin 3.6 (1.3-4.6) g/dL 07/01/20 07/01/20 07/01/20 Range/Units 15:26 15:26 15:26 WBC (4.0-10.0) 10^3/ uL RBC (4.1-5.3) 10^6/u L Hgb (11.7-16.6) g/dL Hct (42.0-52.0) % MCV (80-94) fL MCH (28.0-34.0) pg MCHC (30.0-36.0) g/dL RDW (12.1-15.1) % Plt Count (130-400) 10^3/c mm MPV (7.4-10.4) fL Neut % (Auto) % Lymph % (Auto) % Bland % (Auto) % Eos % (Auto) % Baso % (Auto) % Neut # (Auto) (1.8-7.7) 10^3/u L Lymph # (Auto) (0.8-4.8) 10^3/u L Bland # (Auto) (0.2-0.9) 10^3/u L Eos # (Auto) (0.0-0.8) 10^3/u L Baso # (Auto) (0.0-0.1) 10^3/u L Nucleated RBC % (a uto) % Nucleated RBCs # /100WBC Specimen Type Sample Site ABG pH (7.35-7.45) ABG pCO2 (35-45) mmHg ABG pO2 (80.0-100.0) mmH g ABG HCO3 (22-26) mmol/L ABG Base Excess (-2.0-2.0) mmol/ L Erickson Test Hematocrit (42-52) % O2 Delivery Device FiO2 % Resident Care Assistant ID Sodium (136-145) mmol/L Potassium (3.5-5.1) mmol/L Chloride (98-107) mmol/L Carbon Dioxide (22-29) mmol/L Anion Gap (5-19) BUN (8-23) mg/dL Creatinine (0.7-1.2) mg/dL GFR Calculation (90-130) mL/min Glucose (65-115) mg/dL Calculated Osmolal ity (285-295) mOsm/k g Lactic Acid 1.3 (0.5-2.2) mmol/L Calcium (8.5-10.5) mg/dL Total Bilirubin (0.15-1.2) mg/dL AST (0-40) U/L ALT (0-41) U/L Alkaline Phosphata se (40-130) IU/L Lactate Dehydrogen ase 369 H (135-225) U/L Creatine Kinase 73 (39-308) U/L NT-Pro-B Natriuret Pep (0-125) pg/mL Total Protein (6.6-8.7) g/dL Albumin (3.5-5.2) g/dL Globulin (1.3-4.6) g/dL Imaging Data^: CT Chest: Attestation: I personally reviewed and interpreted this imaging study as follows: Radiologist's impression: [address] [place] [address] CT Scan Report Signed Patient: Gregg Babcock #: [id number] : 8Acct#:[id number] Age/Sex: 64 / MADM Date: 07/01/20 Loc: ERRoom/Bed: Attending Dr: Ordering Provider/Ordering MD: Dari [place]gins [place] [facility] [place] of Service: 07/01/20 Procedure(s): [place] [facility] [address] Accession Number(s): [id number] Report Number: [id number] PROCEDURE INFORMATION: Exam: CT Chest Without Contrast; Diagnostic Exam date and time: 07/01/2020 3:27 PM Age: 64 years old Clinical indication: Shortness of breath; Prior surgery; Surgery date: 6+ months; Surgery type: Stent, R lobectomy; Patient HX: HX of pulmonary fibrosis and copd C/O difficulty breathing and cp; Additional info: SOB TECHNIQUE: Imaging protocol: Diagnostic computed tomography of the chest without contrast. Radiation optimization: All CT scans at this facility use at least one of these dose optimization techniques: automated exposure control; mA and/or kV adjustment per patient size (includes targeted exams where dose is matched to clinical indication); or iterative reconstruction. COMPARISON: [place] chest [facility] [place] [address] 06/21/2020 7:50 AM RADIATION DOSE METRICS: Total DLP (mGy-cm): 604.01 FINDINGS: Lungs: Severe emphysema. Scattered honeycombing. Diffuse reticular interstitial opacities. In the lower lobes increased ground-glass attenuation opacities left greater than right. No obstructing endobronchial lesion. Blebs and small bulla in the upper lobes. Small noncalcified perifissural nodule anterior right lower lobe 7 mm diameter on axial series 3, image 31. Not clear if this is new, or not seen on the prior secondary to slice selection. Overall, ground-glass attenuation in the right lower lobe appears reduced from prior. Pleural spaces: Unremarkable. No pneumothorax. No pleural effusion. Heart: Unremarkable. No cardiomegaly. No pericardial effusion. Aorta: Unremarkable. No aortic aneurysm. Lymph nodes: Unremarkable. No enlarged lymph nodes. Bones/joints: Mild anterior vertebral body wedging of T11 without acute fracture lucency. No aggressive bone lesion. Thoracic spinal alignment is anatomic. Soft tissues: Unremarkable. CT/CT chest wo con [id number] IMPRESSION: 1. Interstitial fibrosis of the lungs with nonspecific pattern. Regions of honeycombing in the posterior lower lobes. UIP cannot be excluded. Nonspecific interstitial pneumonia not excluded. 2. Overall degree of ground-glass attenuation in the lungs appears reduced in the right lower lobe compared with prior of uncertain significance. However, ground-glass features in the lingula and the inferior aspect of the left lower lobe appear increased from the recent prior on 06/21/2020 representing nonspecific pneumonitis pattern. 3. Right lung perifissural noncalcified pulmonary nodule. Recommend CT chest follow-up without contrast in 12 months. Radiation Dose CTDIVOL = (mGy): DLP = 604.01 (mGy-cm) Dictated By:Angel White Signed By:Jcarlos White Date/Time:07/01/201614 DD/ 13 EKG Data^: EKG 1: Attestation: I personally reviewed and interpreted this EKG as follows: EKG Interpretation Date: 07/01/20 EKG interpretation time: 14:46 Prior EKG tracings: not available for review Interpretation: Sinus rhythm with frequent PVCs. Heart rate 86 bpm. Left axis deviation. No ST changes. Critical Care Time Critical Care Time: Critical Care Time: Yes Total Critical Care Time: 45 Attestation: This case had a high probability of a clinically significant, sudden, or life threatening deterioration of this patient's condition which required my full and direct attention, intervention and personal management. Discharge Plan Discharge Patient Disposition: Admitted As Inpatient Admit Provider: Gonzalo Cobian Clinical Impression: Acute hypoxemic respiratory failure, Aspergillosis, Hyponatremia, Hyperkalemia, P-ANCA titer positive Pneumocystis jiroveci pneumonia Qualifiers: Laterality: unspecified laterality Lung location: unspecified part of lung Qualified Code(s): B59 - Pneumocystosis COPD (chronic obstructive pulmonary disease) Qualifiers: COPD type: emphysema Emphysema type: unspecified Qualified Code(s): J43.9 - Emphysema, unspecified Condition: Stable Coding Level of Care Code ED Product Applications Scientist for [facility]
[2020-07-02] VITALS (16 sets, daily range): BP systolic 93–128; BP diastolic 58–71; PULSE 77–100; RESP 16–22; TEMP 32.2–37; O2SAT 84–98
[2020-07-02 01:30] LABS: SARS Covid-2 Antigen Negative (Negative)
--- NOTE | 2020-07-02 01:47 | PC.NURSE ---
Patient sitting on side of bed attempting to void using urinal. Checked PO2 which was 72% on 6L NC. Patient unable to recover after back in bed and resting for 3-5. Respiratory notified, at bedside - Analia increased patient to 15L high flow NC. Patient 90% on this after a few more minutes. Per Dr. Castillo, insert mcgowan catheter to prevent recurring oxygen desaturation. Patient in agreement.
[2020-07-02] MEDS: ipratropium-albuterol 3 mL Neb INHALATION ×4 (02:23→20:07)
[2020-07-02] MEDS: aspirin 81 mg EC Tablet PO (06:02)
[2020-07-02] MEDS: escitalopram 10 mg Tablet 20 MG PO (06:02)
[2020-07-02] MEDS: HYDROcodone-acetaminophen 5-325 mg Tablet 1 TAB PO ×2 (06:02→21:04)
[2020-07-02] MEDS: clopidogrel 75 mg Tablet PO (06:02)
[2020-07-02] MEDS: metoprolol succinate ER (24 HR) 25 mg Tablet 12.5 MG PO (06:03)
[2020-07-02] MEDS: CLONazepam 0.5 mg Tablet 0.25 MG PO ×2 (06:05→21:04)
[2020-07-02] MEDS: sulfamethoxazole-trimeth inj 400 MG in dextrose 5 % 500 ML 500 MG IV ×3 (06:06→17:44)
[2020-07-02 07:08] LABS: Basophils % 0.1 %; Hematocrit 37.3 % (42.0-52.0); Hemoglobin 12.4 g/dL (11.7-16.6); Lymphocytes % 9.5 %; Mean Corpuscular HGB Conc 33.2 g/dL (30.0-36.0); Mean Corpuscular Hemoglobin 27.2 pg (28.0-34.0); Mean Corpuscular Volume 81.8 fL (80-94); Mean Platelet Volume 8.7 fL (7.4-10.4); Monocytes # 0.2 10^3/uL (0.2-0.9); Monocytes % 1.6 %; Neutrophils # 9.38 10^3/uL (1.8-7.7); Neutrophils % 88.3 %; Nucleated Red Blood Cells % 0 %; Platelet Count 279 10^3/cmm (130-400); Red Blood Count 4.56 10^6/uL (4.1-5.3); Red Cell Distribution Width 14.5 % (12.1-15.1); White Blood Count 10.6 10^3/uL (4.0-10.0)
[2020-07-02 07:41] LABS: Alanine Aminotransferase 11 U/L (0-41); Albumin Level 3.2 g/dL (3.5-5.2); Alkaline Phosphatase 71 IU/L (40-130); Anion Gap 14.9 (5-19); Aspartate Amino Transferase 14 U/L (0-40); Blood Urea Nitrogen 18 mg/dL (8-23); Calcium 8.8 mg/dL (8.5-10.5); Carbon Dioxide 20 mmol/L (22-29); Chloride 98 mmol/L (98-107); Globulin 3.5 g/dL (1.3-4.6); Glucose 205 mg/dL (65-115); Osmolality Calculated 274 mOsm/kg (285-295); Potassium 4.9 mmol/L (3.5-5.1); Sodium 128 mmol/L (136-145); Total Bilirubin 0.3 mg/dL (0.15-1.2); Total Protein 6.7 g/dL (6.6-8.7)
[2020-07-02] MEDS: megestrol 400 mg/10 mL UDC PO (07:46)
[2020-07-02] MEDS: predniSONE 20 mg Tablet 60 MG PO (07:47)
[2020-07-02] MEDS: heparin 5,000 unit/mL INJ 1 mL 5000 UNIT SUBCUT ×2 (07:47→16:05)
[2020-07-02] MEDS: cyclobenzaprine 10 mg Tablet PO (07:47)
--- NOTE | 2020-07-02 10:14 | PC.CHAP ---
Pastoral Care Encounter/Spiritual Assessment Type of Contact [] Declined treadle cut off saw operator visit [] Patient/Family/Request visit [] Outpatient visit [] Follow-up visit [] Physician referral [] Code/Alert [x] Routine visit [] Staff referral [] Actively dying [] Patient sleeping [] Family support [] [] Out of room [] Palliative care [] [] Receiving care in room [] Pre-surgical visit [] Trauma [] Long length of stay [] ICU visit [] Other: Relational/Emotional Strength [] Patient feels connected with others/family/visitors/staff [] Distress [] Loneliness/isolation [] Abandonment Spirituality of Patient [x] Person of Dian [] Attends Pentecostalism of their Dian [x] Believes in Prayer [] Reads Bible or Presybeterian materials [] There are Spiritual issues to be addressed Inseam Leveler Interventions [x] Prayer [x] Active listening [x] Non-anxious presence [x] Spiritual/emotional support [] Crisis/trauma care [] Spiritual counseling [] Bereavement support [] Provided bereavement packet [] Provided Bible/devotional materials [] Provided toy/stuffed animal, coloring book to patient or family member [] Provided Communion [] Anointing/[place] [] Salvation [x] Completed spiritual assessment [] Other: Impact on Illness or Injury [] Angry [] Fearful [] Anxious [] Often cries [] Exhaustion [] Unable to work [] Unable to attend sikhism [] Unable to walk/stand [] Unable to read [] Unable to drive [] Unable to eat/drink [] Unable to sleep [] Unable to be with family [] Patient intubated [] Other: Summary Chaplains pprayed with Patient. Time spent with patient 8 minutes
--- NOTE | 2020-07-02 12:04 | PM.PN ---
Subjective Subjective: Interval history: Currently he is doing better. He states that last night he was try to get up and slipped on his socks and fell down. Discussed with him for now will be keeping him on bedrest. Seems overnight he had a Jang put in as well. He is having some discomfort at the tip of his penis from the Jang. This appears to be improving, however, discussed with him is not getting better, we may consider adding some lidocaine jelly if needed for symptoms. Having intermittent bouts of nonproductive cough. Denies chest pain. Grandson is coming in to visit him. Vitals/I&O/Wt Last Vital Signs Temp 97.7 F 07/02/20 11:24 Pulse 81 07/02/20 11:24 Resp 18 07/02/20 11:24 BP 102/66 07/02/20 11:24 Pulse Ox 90 07/02/20 11:24 07/01/20 07/02/20 07/02/20 22:59 06:59 14:59 Intake Total 895 / 895 525 / 1420 775 / 775 Output Total 625 / 625 500 / 1125 925 / 925 Balance 270 / 270 25 / 295 -150 / -150 Weight last 48 hrs Weight 73.437 kg Weight 79.379 kg Physical Exam Const: COMMON NORMALS: no acute distress, patient oriented x3 and alert GENERAL APPEARANCE: cooperative and comfortable ORIENTATION/CONSCIOUSNESS: Yes awake OTHER: Conversant. In good spirits. Feeling better. HENMT: COMMON NORMALS: oropharynx normal Neck/C-Spine: COMMON NORMALS: no JVD Resp: COMMON NORMALS: normal respiratory effort EFFORT & INSPECTION: Yes able to speak in complete sentences AUSCULTATION: no wheezes OTHER: Air entry is better. Today no crackles. Cardio: COMMON NORMALS: no JVD, regular rhythm, S1 normal heart sound present, S2 normal heart sound present and No murmurs present (Cardio) RHYTHM: regular rhythm HEART SOUNDS: S1 normal heart sound present and S2 normal heart sound present GI: COMMON NORMALS: Normal to inspection, nondistended, normoactive bowel sounds present, Soft to palpation and non-tender PALPATION: Yes Soft to palpation Extremity: COMMON NORMALS: no joint enlargement and no pedal edema Neuro: COMMON NORMALS: patient oriented x3 and moves all extremities SENSORIUM/ORIENTATION: Yes alert Skin: COMMON NORMALS: no rashes or lesions noted GENERAL SKIN EXAM: no rashes or lesions noted Urinary Catheter Management^: Jang: Cath Placed During This Visit: yes Reason for Continuing Indwelling Catheter: Other Urinary Catheter Date of Insertion: 07/02/20 Urinary Catheter Time of Insertion: 02:55 Data : 07/02/20 06:42 07/02/20 06:42 Micro: Microbiology 07/01/20 02:58 Legionella Urinary Antigen - Final Urine,Voided Bacterial Antigens - Final A&P Assessment and plan (1) Pneumocystis jiroveci pneumonia: Last night was requiring more oxygen after falling down. This morning down to 6 L high flow cannula. Doing well. Occasional bouts of cough. Leukocytosis decreased. Hyponatremia today improved. Monitor. May need salt tablets in case worsening. Hypokalemia better. Monitor electrolytes and renal function with Bactrim therapy. LDH elevated at 369. We are repeating into sputum, although with previously positive PCP PCR, and clinical symptoms, pneumocystis pneumonia is present. Hypoxic with exertion. Worsening groundglass opacities in left lower lobe, improvement in the right on admission CT. Continue Bactrim IV. 60 mg prednisone daily. Discussed with his daughter and his pest control specialist. Status: Acute Qualifiers: Laterality: unspecified laterality Lung location: unspecified part of lung Qualified Code(s): B59 - Pneumocystosis (2) Acute hypoxemic respiratory failure: Secondary to PCP pneumonia, possible aspergillosis. Unclear whether may have component of underlying interstitial lung disease secondary to autoimmune condition with opportunistic infections or acquired. P-ANCA positive. Requested sputum cultures. Repeating the sputum for PCP PCR. Obtain urine bacterial antigens. Rapid COVID-19 negative. Treatment of PCP as above. Additional coverage for possible aspergillosis with voriconazole. Steroids. Continuous pulse oximetry. Avoid hyperoxia, target saturation 88-92%. Breathing treatments. I-S. Status: Acute (3) Aspergillosis: Voriconazole. Additionally assess Fungitell. History of aspergilloma, although at this time no changes to suggest recurrence on CT. Status: Acute (4) P-ANCA titer positive: 1:160 titer. RF +22 (upper normal 14), although significance of this is not clear as this may increase with age. ABE negative. I see that additional ANCA with MPO + PR3, anti-CCP, UA, urine protein, QuantiFERON gold, hepatitis B and C studies were ordered by Dr Jauregui, but from discussion with his daughter appears dose were going to be drawn prior to his appointment tomorrow morning. We will go ahead and order those studies, as well as HIV. Pending additional rheumatologic assessment. Status: Acute (5) Interstitial lung disease: Possible interstitial lung disease in addition to emphysema. Additional assessment in progress. Treat acute infection. Continue work with pulmonology, rheumatology. Status: Acute (6) Emphysema of lung: At home previously oxygen support 2 L as needed. Treat underlying infections as above. Antibiotics, steroids as above. DuoNeb treatments. Sputum culture. Status: Acute (7) Hyponatremia: Better today up to 128. Appears euvolemic. May be secondary to acute pulmonary condition, pneumocystis pneumonia. Monitor with Bactrim treatment which may also affect sodium. If worsening consider NaCl tablets. Treat pulmonary conditions. Regular diet. Urine studies. If not tolerating Bactrim may need alternative agent. Status: Acute (8) Hyperkalemia: Improved. Low potassium diet. Monitor potassium with Bactrim therapy. Status: Acute (9) Coronary artery disease: Stenting of LAD in April. Ejection fraction 60% during coronary angiography with noted normal LV function. Reports has not been having any chest pain recently, denies needing nitroglycerin. Continue aspirin, Plavix, beta-nash, statin. Status: Acute Qualifiers: Coronary Disease-Associated Artery/Lesion type: [place] artery Ruby vs. transplanted heart: [place] heart Associated angina: with unspecified angina Qualified Code(s): I25.119 - Atherosclerotic heart disease of [place] coronary artery with unspecified angina pectoris (10) Muscular aches: Reports mild muscle aches recently, especially with exertion. May be secondary to hypoxia. Lactic acid normal. Normal CK, aldolase. Mild. If worsening or persistent consider holding statin to exclude statin induced myopathy. Status: Acute Additional A&P Information History of diabetes: Recorded in the chart, although he is not on any medications, appears possibly remote history. However, currently on steroids. Will maintain consistent carbohydrate diet. Mild insulin sliding scale. Attestations Medical Necessity Statement*: Continue admission for assessment management of hypoxic respiratory failure, PCP pneumonia, with underlying severe emphysema, coronary artery disease. Coding Level of Care Code Acute Agricultural Equipment Salesperson for [facility] Bety Diagnoses Pneumocystis jiroveci pneumonia B59 Laterality: unspecified laterality Lung location: unspecified part of lung Acute hypoxemic respiratory failure J96.01 Aspergillosis B44.9 P-ANCA titer positive R76.8 Interstitial lung disease J84.9 Emphysema of lung J43.9 Hyponatremia E87.1 Hyperkalemia E87.5 Coronary artery disease I25.119 Coronary Disease-Associated Artery/Lesion type: [place] artery Ruby vs. transplanted heart: [place] heart Associated angina: with unspecified angina Muscular aches M79.10
[2020-07-02 15:07] LABS: HIV 1 & 2 Antibody Non-Reactive (Non-Reactiv); HIV 1 & 2 Antigen Non-Reactive (Non-Reactiv)
[2020-07-02 15:15] LABS: Hepatitis B Core AB, Total Non-Reactive (Nonreactive); Hepatitis B Surface Antigen Non-Reactive (Nonreactive); Hepatitis C Virus Antibody Non-Reactive (Nonreactive)
[2020-07-02 16:15] LABS: Glucose Point of Care 134 mg/dL (70-110)
[2020-07-02] MEDS: atorvastatin 40 mg Tablet 20 MG PO (17:44)
[2020-07-02 18:47] LABS: Bilirubin Urine Neg (Negative); Blood Urine 3+ (Negative); Glucose Urine UA Norm (Normal); Ketones Urine Negative (Negative); Nitrate Urine Negative (Negative); Protein Urine Neg (Negative); Specific Gravity, Urine 1.025 (1.005-1.030); Urine Appearance Clear (CLEAR); Urine Color Yellow (Yellow); Urobilinogen Urine Norm (Negative); pH Urine 5 (5-7)
[2020-07-02 18:48] LABS: Add Urine Microscopic? YES; Leukocyte Esterase Urine Negative (Negative)
[2020-07-02 18:49] LABS: Bacteria Urine 1+ /hpf; Mucus Urine 1+ /hpf; RBC Urine 15-25 /hpf (0-2); Squamous Epithelial Cell Urine RARE /hpf (0-5)
[2020-07-02 18:50] LABS: Add Urine Culture? Yes
[2020-07-02 19:57] LABS: Urine Protein Random 31 mg/dL
[2020-07-02 20:10] LABS: Glucose Point of Care 133 mg/dL (70-110)
[2020-07-02] MEDS: pantoprazole DR 40 mg Tablet PO (21:04)
[2020-07-03] VITALS (129 sets, daily range): BP systolic 96–120; BP diastolic 56–77; PULSE 78–122; RESP 16–34; TEMP 36.7–36.9; O2SAT 82–963
[2020-07-03] MEDS: sulfamethoxazole-trimeth inj 400 MG in dextrose 5 % 500 ML 500 MG IV ×4 (00:48→22:29)
[2020-07-03] MEDS: heparin 5,000 unit/mL INJ 1 mL 5000 UNIT SUBCUT ×3 (00:48→16:27)
[2020-07-03] MEDS: ipratropium-albuterol 3 mL Neb INHALATION ×4 (03:02→21:13)
[2020-07-03] MEDS: metoprolol succinate ER (24 HR) 25 mg Tablet 12.5 MG PO (06:15)
[2020-07-03] MEDS: clopidogrel 75 mg Tablet PO (06:15)
[2020-07-03] MEDS: aspirin 81 mg EC Tablet PO (06:15)
[2020-07-03] MEDS: escitalopram 10 mg Tablet 20 MG PO (06:15)
[2020-07-03] MEDS: megestrol 400 mg/10 mL UDC PO (06:15)
[2020-07-03 06:33] LABS: Glucose Point of Care 119 mg/dL (70-110)
[2020-07-03 06:57] LABS: Basophils % 0.2 %; Hematocrit 40.1 % (42.0-52.0); Lymphocytes # 1.9 10^3/uL (0.8-4.8); Lymphocytes % 10.1 %; Mean Corpuscular HGB Conc 32.4 g/dL (30.0-36.0); Mean Corpuscular Hemoglobin 27.1 pg (28.0-34.0); Mean Corpuscular Volume 83.5 fL (80-94); Mean Platelet Volume 8.8 fL (7.4-10.4); Monocytes # 0.5 10^3/uL (0.2-0.9); Monocytes % 2.8 %; Neutrophils # 16.32 10^3/uL (1.8-7.7); Nucleated Red Blood Cells % 0 %; Platelet Count 304 10^3/cmm (130-400); Red Cell Distribution Width 14.8 % (12.1-15.1)
[2020-07-03 07:21] LABS: Alanine Aminotransferase 12 U/L (0-41); Albumin Level 3.3 g/dL (3.5-5.2); Alkaline Phosphatase 75 IU/L (40-130); Anion Gap 19.3 (5-19); Aspartate Amino Transferase 17 U/L (0-40); Blood Urea Nitrogen 20 mg/dL (8-23); Calcium 8.7 mg/dL (8.5-10.5); Carbon Dioxide 19 mmol/L (22-29); Chloride 99 mmol/L (98-107); Glucose 90 mg/dL (65-115); Osmolality Calculated 276 mOsm/kg (285-295); Potassium 5.3 mmol/L (3.5-5.1); Sodium 132 mmol/L (136-145); Total Bilirubin 0.2 mg/dL (0.15-1.2); Total Protein 6.3 g/dL (6.6-8.7)
--- NOTE | 2020-07-03 08:33 | XR_ITS ---
WS: [id number] Exam: XR chest 1V 44804 Date/Time of Exam: 07/03/2020 8:58 AM Reason For Exam: Pneumonia Comparison 04/13/2020. Infiltrates are noted in the lingula and left lower lobe as well as the right lower lung zone. Heart size is normal for technique. No pneumothorax or pleural effusion. The mediastinum is not widened. Re gional bony structures are intact. Fusion hardware noted in the lower cervical spine. Left-sided ja[place] tid artery calcifications. XR/XR chest 1V 12997 IMPRESSION: 1. Infiltrate in the right lower lung zone is similar to previous exams and pro bably chronic. 2. Infiltrate in the lingula and left lower lobe most likely represent active p neumonia. 3. Focal cystic change and honeycombing seen in the upper lobe of the left lung unchanged in appearance.
[2020-07-03] MEDS: cyclobenzaprine 10 mg Tablet PO (09:14)
[2020-07-03] MEDS: CLONazepam 0.5 mg Tablet 0.25 MG PO ×2 (09:14→20:37)
[2020-07-03] MEDS: predniSONE 20 mg Tablet 60 MG PO (09:15)
[2020-07-03 10:39] LABS: Glucose Point of Care 134 mg/dL (70-110)
--- NOTE | 2020-07-03 12:27 | ECG_ITS ---
[facility] Test Date: 2020-07-03 Pat Name: Gregg Babcock Department: Room: [facility] Gender: Male [employer] Artist: : 1955 Requested By: [employer]ce[employer]ion Mayfield Order Number: [id number] Jaelyn MD: Kassidy Pedroza M.D. Measurements Intervals [place] Rate: 91 P: 58 SC: 152 QRS: -24 QRSD: 86 T: 31 QT: 331 QTc: 409 Interpretive Statements SINUS RHYTHM POSSIBLE LEFT ATRIAL ENLARGEMENT [-0.1mV P WAVE IN V1/V2] BORDERLINE LEFT AXIS DEVIATION [QRS AXIS < -20] NONSPECIFIC T-WAVE ABNORMALITY Compared to ECG 04/13/2020 21:37:45 No significant changes Electronically Signed On 07-03-2020 19:17:52 CDT by Kassidy Pedroza M.D. [email or web address] [email or web address] a [facility].[email or web address]/store/[id number] f
--- NOTE | 2020-07-03 12:33 | PM.PN ---
Subjective Subjective: Interval history: The patient was seen and examined this morning. He is resting in bed however tachypneic and got very short of breath trying to sit up in bed. His chest x-ray this morning revealed left lung infiltrate in addition to right lung infiltrate. The patient is currently on Bactrim, voriconazole. He is also on 60 mg of prednisone daily. Medications: Reviewed: Yes Vitals/I&O/Wt Last Vital Signs Temp 98.1 F 07/03/20 12:00 Pulse 85 07/03/20 12:00 Resp 18 07/03/20 12:00 BP 109/66 07/03/20 12:00 Pulse Ox 96 07/03/20 12:00 07/02/20 07/03/20 07/03/20 22:59 06:59 14:59 Intake Total 885 / 2425 525 / 2950 360 / 360 Output Total 1000 / 1925 1500 / 3425 Balance -115 / 500 -975 / -475 360 / 360 Weight last 48 hrs Weight 161 lb Weight 161 lb 14.4 oz Weight 175 lb Physical Exam Narrative: EXAM NARRATIVE: General: Patient is awake alert and oriented, mild distress while resting, visibly tachypneic Neck: No JVD, no cervical or supraclavicular lymphadenopathy. Respiratory: Auscultation: Bilateral crackles more on the left side, no wheezing or rhonchi Cardiovascular: Regular rate and rhythm, S1-S2 present, no murmur, no peripheral edema. Abdomen: Soft, nontender, nondistended, positive bowel sound Musculoskeletal: No obvious joint deformity Skin: No rash, no evidence of erythema nodosum or multiforme. Neuro: Mental status is normal, no gross cranial nerve deficit, normal motor and coordination. Urinary Catheter Management^: Jang: Cath Placed During This Visit: yes Reason for Continuing Indwelling Catheter: Other Urinary Catheter Date of Insertion: 07/02/20 Urinary Catheter Time of Insertion: 02:55 Data : 07/03/20 06:21 07/03/20 04:51 Micro: Microbiology 07/01/20 02:58 Legionella Urinary Antigen - Final Urine,Voided Bacterial Antigens - Final Attestation for Other Data: I personally reviewed and interpreted the following: Other data: I have reviewed his laboratory, microbiologic and radiologic data. The patient has mild leukocytosis likely secondary to the steroid therapy. The hyponatremia is better the patient has mild increase in potassium level however is still in normal range. The patient also has non-anion gap metabolic acidosis. The chest x-ray this morning revealed bilateral infiltrate more on the left than right which was consistent with the CT scan that was obtained during admission. A&P Assessment and plan (1) Acute hypoxemic respiratory failure: The patient has developed acute hypoxic respiratory failure secondary to PCP pneumonia. The patient is HIV negative. Currently he is saturating mid 80s to low 90s on high flow oxygen. He was visibly tachypneic and desaturated to 80% with sitting up on the bed for me to examine him. I am going to move him to ICU. Will start on high flow nasal cannula to reduce his work of breathing. Status: Acute (2) Pneumocystis jiroveci pneumonia: The patient is currently on IV trimethoprim sulfamethoxazole. He is also on 60 mg of prednisone. I am going to increase the prednisone dose. Also going to give him a one-time dose of 20 mg of IV Lasix. His Legionella urine antigen was negative. I will restart him on levofloxacin empirically. Status: Acute Qualifiers: Laterality: unspecified laterality Lung location: unspecified part of lung Qualified Code(s): B59 - Pneumocystosis (3) Aspergillosis: The patient is currently on voriconazole. I am going to obtain an EKG to make sure the QTC is not too prolonged. Status: Acute (4) Interstitial lung disease: The patient does have evidence of interstitial lung disease predominantly in the right lung. The groundglass opacities likely secondary to the PCP pneumonia. Once all of this settles down, the patient will need further work-up for interstitial lung disease and possible antifibrotic therapy Status: Acute (5) Emphysema of lung: The patient has significant history of smoking and emphysema. We will continue with the nebulized treatment for now. 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
[2020-07-03] MEDS: FUROsemide 10 mg/mL SDV 2mL 20 MG IVP (12:58)
[2020-07-03 13:38] LABS: Aldolase 4.8 U/L (< OR = 8.1)
[2020-07-03 13:38] LABS: Cyclic Citrullinated Peptide <16 UNITS
--- NOTE | 2020-07-03 14:46 | PC.RESP ---
Pulmonary Rehab information sent to patient.
--- NOTE | 2020-07-03 15:09 | P.PN_ITS ---
Subjective Subjective: Interval history: During my examination, this morning on the general medical floors, patient denies any fevers, chills, has a poor appetite, does report shortness of breath with minimal exertion, he was turned up to 7 to 8 L nasal cannula, he feels that he has not gotten any better, still feels weak and fatigued. Patient was examined by Dr. Mayfield in the afternoon, and wait when he was got up to the side of the bed, his his oxygen saturations did drop, became very short of breath, thus he was moved down to the ICU for closer monitoring on high flow nasal cannula. I reexamined patient down in the ICU, currently has high flow nasal cannula, alert oriented x3, answers all his questions appropriate, no evidence of respiratory distress that I can discern, no tachypnea, remains afebrile, normotensive, good urine output Vitals/I&O/Wt Last Vital Signs Temp 98.1 F 07/03/20 12:00 Pulse 85 07/03/20 14:00 Resp 18 07/03/20 12:00 BP 109/66 07/03/20 12:00 Pulse Ox 96 07/03/20 12:00 07/03/20 07/03/20 07/03/20 06:59 14:59 22:59 Intake Total 525 / 2950 1235 / 1235 Output Total 1500 / 3425 Balance -975 / -475 1235 / 1235 Weight last 48 hrs Weight 73.028 kg Weight 73.437 kg Physical Exam Const: COMMON NORMALS: no acute distress and patient oriented x3 GENERAL APPEARANCE: frail appearing HENMT: COMMON NORMALS: normocephalic HEAD & SCALP: normocephalic Neck/C-Spine: COMMON NORMALS: no JVD Resp: COMMON NORMALS: normal respiratory effort, No retractions and No use of accessory muscles AUSCULTATION: diminished lung sounds bilateral Cardio: COMMON NORMALS: no JVD, regular rate, regular rhythm, S1 normal heart sound present and S2 normal heart sound present RATE: regular rate RHYTHM: regular rhythm HEART SOUNDS: S1 normal heart sound present and S2 normal heart sound present GI: COMMON NORMALS: Normal to inspection, nondistended, normoactive bowel sounds present, Soft to palpation, non-tender, No hepatosplenomegaly present, no masses and no bruits PALPATION: Yes Soft to palpation and Yes No hepatosplenomegaly present Extremity: COMMON NORMALS: capillary refill normal, no clubbing, cyanosis or edema, no calf tenderness and no pedal edema Neuro: COMMON NORMALS: patient oriented x3 Psych: COMMON NORMALS: mental status grossly normal Urinary Catheter Management^: Jang: Cath Placed During This Visit: yes Reason for Continuing Indwelling Catheter: Other Urinary Catheter Date of Insertion: 07/02/20 Urinary Catheter Time of Insertion: 02:55 Data : 07/03/20 06:21 07/03/20 04:51 A&P Assessment and plan (1) Acute hypoxemic respiratory failure: Secondary to PCP pneumonia, possible aspergillosis. Unclear whether may have component of underlying interstitial lung disease secondary to autoimmune condition with opportunistic infections or acquired. P-ANCA positive. -Patient was moved to the ICU this afternoon due to increasing shortness of breath, hypoxia, currently on high flow -White blood cell count 19, serum sodium 132, LDH 369 -CT chest shows interstitial fibrosis of the lungs with nonspecific patterns, regions of honeycombing, groundglass attenuation in the lungs appears reduced in the right lower lobe, groundglass features in the lingula and in the inferior aspect of the left lower lobe appear increased -Requested sputum cultures. Repeating the sputum for PCP PCR. Obtain urine bacterial antigens. -Rapid COVID-19 negative. -Continue Levaquin -Continue Bactrim -Voriconazole added additional coverage for possible aspergillosis with voriconazole. -Prednisone 80 mg daily -He received 20 mg IV Lasix today -Continuous pulse oximetry. Avoid hyperoxia, target saturation 88-92%. -Continue nebulizer treatment -Continue incentive spirometer -Dr. Mayfield on consult -Infectious disease on consult Plan for today, continue Levaquin, Bactrim, added voriconazole, steroids, continue ICU monitoring monitor serum sodium, monitor serum potassium monitor respiratory status Status: Acute (2) Pneumocystis jiroveci pneumonia: Status: Acute Qualifiers: Laterality: unspecified laterality Lung location: unspecified part of lung Qualified Code(s): B59 - Pneumocystosis (3) Aspergillosis: Voriconazole. Additionally assess Fungitell. History of aspergilloma, although at this time no changes to suggest recurrence on CT. Status: Acute (4) P-ANCA titer positive: 1:160 titer. RF +22 (upper normal 14), although significance of this is not clear as this may increase with age. ABE negative. I see that additional ANCA with MPO + PR3, anti-CCP, UA, urine protein, QuantiFERON gold, hepatitis B and C studies were ordered by Dr Jauregui, but fr om discussion with his daughter appears dose were going to be drawn prior to his appointment tomorrow morning. Pending additional rheumatologic assessment. -So far hepatitis panel negative, HIV panel negative, CCP IgG less than 16, -TB test pending Status: Acute (5) Interstitial lung disease: Possible interstitial lung disease in addition to emphysema. Additional assessment in progress. Treat acute infection. Continue work with pulmonology, infectious disease Status: Acute (6) Emphysema of lung: At home previously oxygen support 2 L as needed. Treat underlying infections as above. Antibiotics, steroids as above. DuoNeb treatments. Sputum culture. Status: Acute (7) Hyponatremia: Better today up to 132. Slightly fluid overloaded today. May be secondary to acute pulmonary condition, fluid overload, Bactrim pneumocystis pneumonia. Monitor with Bactrim treatment which may also affect sodium. If worsening consider NaCl tablets. Treat pulmonary conditions. Regular diet. Urine studies. If not tolerating Bactrim may need alternative agent. Status: Acute (8) Hyperkalemia: 5.3 today, improved. Low potassium diet. Monitor potassium with Bactrim therapy. Status: Acute (9) Coronary artery disease: Stenting of LAD in April. Ejection fraction 60% during coronary angiography with noted normal LV function. Reports has not been having any chest pain recently, denies needing nitroglycerin. Continue aspirin, Plavix, beta-nash, statin. Status: Acute Qualifiers: Coronary Disease-Associated Artery/Lesion type: robinson artery [place] vs. transplanted heart: robinson heart Associated angina: with unspecified angina Qualified Code(s): I25.119 - Atherosclerotic heart disease of robinson coronary artery with unspecified angina pectoris (10) Muscular aches: Reports mild muscle aches recently, especially with exertion. May be secondary to hypoxia. Lactic acid normal. Normal CK, aldolase. Mild. If worsening or persistent consider holding statin to exclude statin induced myopathy. Status: Acute Additional A&P Information History of diabetes: Recorded in the chart, although he is not on any medications, appears possibly remote history. However, currently on steroids. Will maintain consistent carbohydrate diet. Mild insulin sliding scale. 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 transplanted heart: robinson heart Associated angina: with unspecified angina Muscular aches M79.10
[2020-07-03 16:18] LABS: Estmated Average Glucose 108; Hemoglobin A1C 5.4 % (4.0-6.0)
[2020-07-03 16:42] LABS: Osmolality Urine 584 mOsm/kg (50-1200)
[2020-07-03] MEDS: atorvastatin 40 mg Tablet 20 MG PO (16:49)
[2020-07-03 16:55] LABS: Glucose Point of Care 158 mg/dL (70-110)
[2020-07-03] MEDS: HYDROcodone-acetaminophen 5-325 mg Tablet 1 TAB PO (18:04)
--- NOTE | 2020-07-03 18:13 | P.CONIM_ITS ---
Providers/Reason For Consult Consulting Physican/Specialty*: Kyleigh Power MD/Infectious disease Reason for Consult*: Pneumocytis pneumonia vs IPA Attending Physician: Wilfredo Melendez MD Primary Care Provider: Daniel Nogueira DO History of Present Illness History of Present Illness Gregg Babcock is a 64 year old male with PMH COPD/emphysema for he is followed as an outpatient with Dr. Mayfield from pulmonology. He has been complaining of worsening dyspnea over the past month or so and has had a new oxygen requirement over the past month at 2lpm. On a routine follow-up visit on June 15, 2020 with pulmonology he was noted to be saturating 88% on room air. He had also recently undergone a CT of the abdomen and pelvis for kidney stones which incidentally revealed significant groundglass opacities in the right lower lobe with interlobular septal thickening, again noted on dedicated CT chest from 06/21/2020 along with some new scattered groundglass opacities in the left lower lobe. He underwent a bronchoscopy for further evaluation on June 22, 2020. No endobronchial lesions were noted at the time. 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 BAL was performed from the anterior segment of the right lower lobe and sent for cell count culture including bacterial fungal and AFB. Aspergillus galactomannan index and pneumocystis PCR were additionally sent. Cell count showed predominant bronchial neutrophils at 55%, and high bronchial eosinophils at 7%. PJP PCR eventually returned positive from a specimen marked BAL, however on closer inspection of the PDF, it appears that this is in fact a sputum specimen from June 16, 2020 that resulted positive. Serum LDH is elevated at 356. Serum beta glucan remains pending currently. In the interim patient was started on Bactrim DS 2 tab 3 times daily on June 26, 2020. On July 01, patient was at a baseball game when he started to feel acutely short of breath, much more severe than at baseline, his daughter checked his oxygen saturation and was noted to be down to about 70% on room air. He was thereafter brought into the ER and was requiring up to 8 L of oxygen by nasal cannula. His oxygen requirements have quickly creeped up during hospital admission and he is currently on heated high flow 70% FiO2 at 40 L/min in the ICU at the time of my evaluation. He is desaturating with minimal exertion. CT chest on admission on July 01 shows mildly improved groundglass attenuation in the right lower lobe, however significantly increased GGO's in the lingula in the left lower lobe compared to CT from June 21, 2020, overall consistent with a nonspecific pneumonitis pattern. There is a right lung noncalcified pulmonary nodule, stable, seen over serial CTs at least dating back to November 2019. There is no discrete consolidation or nodules noted. Patient denies any fever. Denies any cough or expectoration at this present time. Covid PCR on June 16, rapid Covid antigen on July 01 were negative. Patient has received both doses of his COVID-19 vaccination. Review of Systems General: Reports: 10 or more systems reviewed and unremarkable except in HPI and below Const: Denies: fever(s), chills or body aches Eyes: Denies: change in vision, blurry vision or photophobia ENMT: Denies: throat pain, enlarged tonsils, odynophagia or nasal congestion Card: Reports: dyspnea on exertion; Denies: chest pain, palpitations, irregular heart rhythm, edema, swelling of feet/ankles, lightheadedness, pre-syncope or orthopnea Resp: Reports: dyspnea and non-productive cough; Denies: productive cough, wheezing, stridor, pain on inspiration, change in phlegm color, hemoptysis or chest congestion GI: Denies: abdominal pain, nausea, vomiting, hematemesis, coffee ground emesis, dysphagia, heartburn, diarrhea, constipation, GI cramping, change in stool character, hematochezia or melena : Denies: flank pain, dysuria, urinary frequency, urinary urgency, urinary hesitancy or hematuria Musc: Denies: neck pain, back pain, extremity pain, joint swelling, joint warmth or deformity Neuro: Denies: headache(s), numbness in extremities, weakness in extremities, sensory changes, difficulty walking, frequent falls, dizziness, vertigo, behavioral changes, Slurred speech present or seizure-like activity Psych: Denies: anxiety, depression, suicidal ideation or homicidal ideation Endo: Denies: polyuria, polydipsia, tired all the time, cold intolerance or hot flashes Jamari/Lymph: Denies: easy bruising or easy bleeding Meds/Allergies Home Medications and Allergies Home Medications Medication Instructions Recorded Confirmed Last Taken Type escitalopram oxalate 10 mg tablet 20 mg PO DAILY@0630 tab 03/14/20 07/01/20 07/01/20 History nitroglycerin 0.4 mg sublingual 0.4 mg SUBLINGUAL Q5M PRN #25 tab 04/18/20 07/01/20 Unknown Rx tablet simvastatin 40 mg PO BEDTIME@1730 05/02/20 07/01/20 06/30/20 History megestrol 400 mg/10 mL (40 mg/mL) 400 mg PO DAILY #480 ml 06/26/20 07/01/20 07/01/20 Rx oral suspension Adult Aspirin Regimen 81 mg PO DAILY@0630 07/01/20 07/01/20 07/01/20 History Bactrim DS 2 tab PO TID@0630,1230,1730 07/01/20 07/01/20 07/01/20 History Breztri Aerosphere 2 inh INHALATION BID@0630,1730 07/01/20 07/01/20 07/01/20 History Protonix 40 mg PO DAILY@1730 07/01/20 07/01/20 06/30/20 History clonazepam 0.25 mg PO BID@0630,1730 07/01/20 07/01/20 07/01/20 History clopidogrel 75 mg PO DAILY@0630 07/01/20 07/01/20 07/01/20 History cyclobenzaprine 10 mg PO DAILY 07/01/20 07/01/20 06/29/20 History metoprolol succinate 12.5 mg PO DAILY@0630 07/01/20 07/01/20 07/01/20 History Allergies Allergy/AdvReac Type Severity Reaction Status Date / Time acetaminophen [From [place]] Allergy ADR-Itching Verified 06/21/20 17:27 hydrocodone [From [place]] Allergy ADR-Itching Verified 06/21/20 17:27 insect venom Allergy ALGY-Difficulty Verified 06/15/20 18:25 Swallowing Current Medications Current Medications Generic Name Dose Route Start Last Admin Trade Name Freq PRN Reason Stop Dose Admin Hydrocodone Bitart/Acetaminophen 1 tab 07/01/20 18:48 07/03/20 18:04 Hydrocodone-Acetaminophen 5-325 Mg Tablet PO 1 tab Q4H PRN Administration MODERATE PAIN Albuterol/Ipratropium 3 ml 07/02/20 03:00 07/03/20 15:21 Ipratropium-Albuterol 3 Ml Neb INHALATION 3 ml Q6H.RESPIRATORY ANISHA Administration Aspirin 81 mg 07/02/20 06:30 07/03/20 06:15 Aspirin 81 Mg Ec Tablet PO 81 mg DAILY@0630 ANISHA Administration Atorvastatin Calcium 20 mg 07/02/20 17:30 07/03/20 16:49 Atorvastatin 40 Mg Tablet PO 20 mg DAILY@1730 ANISHA Administration Clonazepam 0.25 mg 07/02/20 21:00 07/03/20 09:14 Clonazepam 0.5 Mg Tablet PO 0.25 mg BID@0800,2100 ANISHA Administration Clopidogrel Bisulfate 75 mg 07/02/20 06:30 07/03/20 06:15 Clopidogrel 75 Mg Tablet PO 75 mg DAILY@0630 ANISHA Administration Cyclobenzaprine HCl 10 mg 07/02/20 09:00 07/03/20 09:14 Cyclobenzaprine 10 Mg Tablet PO 10 mg DAILY ANISHA Administration Escitalopram Oxalate 20 mg 07/02/20 06:30 07/03/20 06:15 Escitalopram 10 Mg Tablet PO 20 mg DAILY@0630 ANISHA Administration Heparin Sodium (Beef Lung) 5,000 unit 07/02/20 08:00 07/03/20 16:27 Heparin 5,000 Unit/Ml Inj 1 Ml SUBCUT 5,000 unit Q8H ANISHA Administration Trimethoprim/Sulfamethoxazole 525 mls @ 500 mls/hr 07/01/20 17:30 07/03/20 16:47 400 mg/ Dextrose IV 500 mls/hr Q6H ANISHA Administration Insulin Aspart 0 unit 07/02/20 18:00 07/03/20 17:02 Insulin Aspart 100 Unit/1 Ml SUBCUT Not Given TIDWM [facility] Protocol Megestrol Acetate 400 mg 07/02/20 07:45 07/03/20 06:15 Megestrol 400 Mg/10 Ml Udc PO 400 mg DAILY@0600 ANISHA Administration Metoprolol Succinate 12.5 mg 07/02/20 06:30 07/03/20 06:15 Metoprolol Succinate Er (24 Hr) 25 Mg Tablet PO 12.5 mg DAILY@0630 ANISHA Administration Pantoprazole Sodium 40 mg 07/01/20 22:46 07/02/20 21:[address] 40 Mg Tablet PO 40 mg BEDTIME ANISHA Administration PFSH Acute PFSH: Medical History 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 COPD (chronic obstructive pulmonary disease) Coronary artery disease Cubital tunnel syndrome on right Diabetes Diabetes Pulmonary nodule Surgical absence of teeth Tobacco abuse Surgical History H/O neck surgery H/O: vasectomy History of ankle surgery History of dental surgery History of facial surgery History of lung biopsy S/P lobectomy of lung Family History Father Cancer Hypertension Mother Diabetes Brother Diabetes Sister Diabetes Father Cancer Prostate Social History Smoking and tobacco status: former smoker Quit status (tobacco): has quit using tobacco Year quit tobacco: 2020 - 2PPD x 40 Years Second hand smoke exposure: No Alcohol intake: current Alcohol intake frequency: holidays/special occasions only Lives independently: Yes Household members: none Housing: House Marital status: Number of children: 3 Number of grandchildren: 4 Highest education level completed: High School Graduate service: No Current occupational status: retired and disabled Pets and animals: Yes 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 History of recent travel: No Leisure activites: hunting and fishing Current gender identity: Male Dian/Yarsani: Sikh Vitals/I&O/Wt Last Vital Signs Temp 98.1 F 07/03/20 17:00 Pulse 98 07/03/20 18:08 Resp 16 07/03/20 18:08 BP 120/73 07/03/20 17:05 Pulse Ox 94 07/03/20 18:08 07/03/20 07/03/20 07/03/20 06:59 14:59 22:59 Intake Total 525 / 2950 1235 / 1235 350 / 1585 Output Total 1500 / 3425 800 / 800 Balance -975 / -475 1235 / 1235 -450 / 785 Weight last 48 hrs Weight 73.028 kg Weight 73.437 kg Physical Exam Narrative: EXAM NARRATIVE: GEN: Awake, alert and oriented, no acute distress HEENT: heated high flow NC in place CVS: S1S2 N RS: Scattered fine crackles at B/L infraaxillary areas Abd: Soft, nt/nd , bs+ SPA TECHNICIAN: no focal neuro deficits Urinary Catheter Management^: Jang: Cath Placed During This Visit: yes Reason for Continuing Indwelling Catheter: Other Urinary Catheter Date of Insertion: 07/02/20 Urinary Catheter Time of Insertion: 02:55 Data Other Data: Attestation for Other Data: I personally reviewed and interpreted the following: Other data: Laboratory Results WBC 14.3 10^3/uL (4.0 -10.0) H 07/04/20 03:30 RBC 4.94 10^6/uL (4.1 -5.3) 07/04/20 03:30 Hgb 13.4 g/dL (11.7-1 6.6) 07/04/20 03:30 Hct 40.2 % (42.0-52.0 ) L 07/04/20 03:30 MCV 81.4 fL (80-94) 07/04/20 03:30 MCH 27.1 pg (28.0-34. 0) L 07/04/20 03:30 MCHC 33.3 g/dL (30.0-3 6.0) 07/04/20 03:30 RDW 14.6 % (12.1-15.1 ) 07/04/20 03:30 Plt Count 310 10^3/cmm (130 -400) 07/04/20 03:30 MPV 8.9 fL (7.4-10.4) 07/04/20 03:30 Neut % (Auto) 85.4 % 07/04/20 03:30 Lymph % (Auto) 11.3 % 07/04/20 03:30 [place] % (Auto) 2.4 % 07/04/20 03:30 Eos % (Auto) 0.0 % 07/04/20 03:30 Baso % (Auto) 0.1 % 07/04/20 03:30 Neut # (Auto) 12.22 10^3/uL (1. 8-7.7) H 07/04/20 03:30 Lymph # (Auto) 1.6 10^3/uL (0.8- 4.8) 07/04/20 03:30 [place] # (Auto) 0.3 10^3/uL (0.2- 0.9) 07/04/20 03:30 Eos # (Auto) 0.0 10^3/uL (0.0- 0.8) 07/04/20 03:30 Baso # (Auto) 0.0 10^3/uL (0.0- 0.1) 07/04/20 03:30 Nucleated RBC % (a uto) 0 % 07/04/20 03:30 Nucleated RBCs # 0.0 /100WBC 07/04/20 03:30 Specimen Type Arterial 07/04/20 04:40 Sample Site Brachial, right 07/04/20 04:40 ABG pH 7.46 (7.35-7.45) H 07/04/20 04:40 ABG pCO2 32.0 mmHg (35-45) L 07/04/20 04:40 ABG pO2 78.6 mmHg (80.0-1 00.0) L 07/04/20 04:40 ABG HCO3 22.6 mmol/L (22-2 6) 07/04/20 04:40 ABG Base Excess -0.5 mmol/L (-2.0 -2.0) 07/04/20 04:40 Erickson Test N/a 07/04/20 04:40 Hematocrit 43.2 % (42-52) 07/04/20 04:40 O2 Delivery Device Not Reportable 07/04/20 04:40 O2 Liters/Min 45.0 % 07/04/20 04:40 FiO2 56.0 % 07/04/20 04:40 Emergency Service Worker ID Andrewnja 07/04/20 04:40 Sodium 128 mmol/L (136-1 45) L 07/04/20 16:55 Potassium 4.7 mmol/L (3.5-5 .1) 07/04/20 16:55 Chloride 93 mmol/L (98-107 ) L 07/04/20 16:55 Carbon Dioxide 19 mmol/L (22-29) L 07/04/20 16:55 Anion Gap 20.7 (5-19) H 07/04/20 16:55 BUN 25 mg/dL (8-23) H 07/04/20 16:55 Creatinine 1.1 mg/dL (0.7-1. 2) 07/04/20 16:55 GFR Calculation 67.8 mL/min (90-1 30) L 07/04/20 16:55 Glucose 167 mg/dL (65-115 ) H 07/04/20 16:55 POC Glucose 200 mg/dL (70-110 ) H 07/04/20 17:30 Estimat Average Gl ucose 108 07/03/20 06:21 Hemoglobin A1c 5.4 % (4.0-6.0) 07/03/20 06:21 Calculated Osmolal ity 274 mOsm/kg (285- 295) L 07/04/20 16:55 Lactic Acid 1.3 mmol/L (0.5-2 .2) 07/01/20 15:26 Lactate 1.7 mmol/L (0.5-2 .2) 07/04/20 03:19 Calcium 9.1 mg/dL (8.5-10 .5) 07/04/20 16:55 Phosphorus 3.7 mg/dL (2.5-4. 5) 07/04/20 03:19 Magnesium 2.0 mg/dL (1.7-2. 3) 07/04/20 03:19 Total Bilirubin 0.3 mg/dL (0.15-1 .2) 07/04/20 03:30 AST 16 U/L (0-40) 07/04/20 03:30 ALT 14 U/L (0-41) 07/04/20 03:30 Alkaline Phosphata se 81 IU/L (40-130) 07/04/20 03:30 Lactate Dehydrogen ase 369 U/L (135-225) H 07/01/20 15:26 Creatine Kinase 73 U/L (39-308) 07/01/20 15:26 C-Reactive Protein 154.5 mg/L (0.0-4 .9) H 07/04/20 03:19 NT-Pro-B Natriuret Pep 122 pg/mL (0-125) 07/04/20 03:19 Total Protein 6.5 g/dL (6.6-8.7 ) L 07/04/20 03:30 Albumin 3.5 g/dL (3.5-5.2 ) 07/04/20 03:30 Globulin 3.0 g/dL (1.3-4.6 ) 07/04/20 03:30 Aldolase 4.8 U/L (< OR = 8 .1) 07/01/20 21:32 Procalcitonin 0.10 ng/mL (0-0.5 ) 07/04/20 03:19 Urine Color Yellow (Yellow) 07/02/20 17:50 Urine Appearance Clear (CLEAR) 07/02/20 17:50 Urine pH 5 (5-7) 07/02/20 17:50 Ur Specific Gravit y 1.025 (1.005-1.0 30) 07/02/20 17:50 Urine Protein Neg (Negative) 07/02/20 17:50 Urine Glucose (UA) Norm (Normal) 07/02/20 17:50 Urine Ketones Negative (Negati ve) 07/02/20 17:50 Urine Blood 3+ (Negative) H 07/02/20 17:50 Urine Nitrate Negative (Negati ve) 07/02/20 17:50 Urine Bilirubin Neg (Negative) 07/02/20 17:50 Urine Urobilinogen Norm mg/dL (Negat oc) 07/02/20 17:50 Ur Leukocyte Renee ase Negative (Negati ve) 07/02/20 17:50 Urine RBC 15-25 /hpf (0-2) H 07/02/20 17:50 Urine WBC 5-10 /hpf (0-5) H 07/02/20 17:50 Ur Squamous Epith Cells Rare /hpf (0-5) 07/02/20 17:50 Amorphous Sediment Not Reportable 07/02/20 17:50 Urine Bacteria 1+ /hpf (NONE) H 07/02/20 17:50 Urine Mucus 1+ /hpf 07/02/20 17:50 Urine Osmolality 584 mOsm/kg (50-1 200) 07/01/20 21:50 U Random Total Pro tein 31 mg/dL 07/02/20 17:50 Ur Random Sodium 78 mmol/L 07/01/20 21:50 Cycl Citrul Peptid e IgG <16 UNITS 07/02/20 12:45 Hep Bs Antigen Non-reactive (No nreactive) 07/02/20 12:45 Hep B Core Total A b Non-reactive (No nreactive) 07/02/20 12:45 Hepatitis C Antibo dy Non-reactive (No nreactive) 07/02/20 12:45 HIV 1&2 Ab & HIV 1 Ag Non-reactive (No n-Reactiv) 07/02/20 12:45 HIV 1&2 Antibody Non-reactive (No n-Reactiv) 07/02/20 12:45 SARS-CoV-2 Ag (Rap id) Negative (Negati ve) 07/02/20 00:59 TB (QFT) Gold In T ube Negative (NEGATI VE) 07/02/20 12:45 TB Test (QFT) Nil 0.01 IU/mL 07/02/20 12:45 TB Test (QFT) Howie gen >10.00 IU/mL 07/02/20 12:45 TB Test Mitogen - Nil 0.00 IU/mL 07/02/20 12:45 TB Test TB - Nil 0.00 IU/mL 07/02/20 12:[address] 07/01/20 15:01 IMPRESSION: 1. Interstitial fibrosis of the lungs with nonspecific pattern. Regions of honeycombing in the posterior lower lobes. UIP cannot be excluded. Nonspecific interstitial pneumonia not excluded. 2. Overall degree of ground-glass attenuation in the lungs appears reduced in the right lower lobe compared with prior of uncertain significance. However, ground-glass features in the lingula and the inferior aspect of the left lower lobe appear increased from the recent prior on 06/21/2020 representing nonspecific pneumonitis pattern. 3. Right lung perifissural noncalcified pulmonary nodule. Recommend CT chest follow-up without contrast in 12 months. Radiation Dose CTDIVOL = (mGy): DLP = 604.01 (mGy-cm) Microbiology 07/02/20 17:50 Urine,Clean Catch Urine Culture - Preliminary 07/01/20 02:58 Urine,Voided Legionella Urinary Antigen - Final 07/01/20 02:58 Urine,Voided Bacterial Antigens - Final 06/16/20: sputum PJP PCR : positive 06/22/20: BAL PJP PCR N/a 06/22/20: BAL AG/GM: + 1.3 07/02: serum BDG ; pending 06/22: BAL cx : negative fungal and AFB cx thus far 06/22: BAL cx: mixed resp max 06/16: Covid PCR: negative 07/02: rapid Covid ag : negative 07/01: serum Quantiferon : pending 07/01: HIV serostatus: negative A&P Assessment and plan (1) Pneumocystis jiroveci pneumonia: Status: Acute Qualifiers: Laterality: unspecified laterality Lung location: unspecified part of lung Qualified Code(s): B59 - Pneumocystosis (2) Acute hypoxemic respiratory failure: Status: Acute (3) Pulmonary fibrosis: Status: Acute (4) COPD (chronic obstructive pulmonary disease): Status: Acute Qualifiers: COPD type: emphysema Emphysema type: unspecified Qualified Code(s): J43.9 - Emphysema, unspecified (5) P-ANCA titer positive: Status: Acute Additional A&P Information 64M with COPD/hypoxemic respiratory failure presented with progressively worsening dyspnea over the past month, acutely worsened since 1 week with corresponding worsening GGOs B/L on serial CT chest imaging on 06/21 and 07/01. # Presumptive PJP pneumonia : Based on worsening dyspnea, acute hypoxic repiratory failure, B/L rapidly worsening GGOs in non specific pneumonitis pattern, elevated LDH and positive expectorated sputum PJP PCR with predominant neutrophilic infiltrate on BAL. Started on bactrim 2tab DS TID on 06/26, worsening GGOS and 02 requirements thereafter by 07/01, not unexpected in immunocompetent persons newly initiated on treatment due to inflammation generated as a result of dying organisms. No clear underlying immunocompromise evident, reports history of taking 10 days of steroids one month ago, will verify this with his pharmacy. HIV screen negative. No lymphopenia evident on labs. No h/o underlying malignancy. Risk factors in his case could be Copd/fibrosis and underlying rheumatological disorder given + pAnca. He has been initiated on iv bactrim 20mg/kg per day divided into 4 doses, which is appropriate dosing. Also on cocomitatnt steroids 80mg daily for severe PJP, recommend to continue at 80mg daily for 5 days and then start to taper. Induced sputum PJP PCR has additionally been ordered due to discrepancy of PCR results (+ expectorated sputum on 06/16, negative BAL PCR on 06/22), remains pending, as does serum BDG. Note made of + Aspergillus galactomannan index at 1.3 from BAL on 06/22. Suspect this to be a false positive vs related to mold colonization of airways given absence of underlying host factors such as profound immunocompromise, absence of radiological features on CT such as cavitation or well circumscribed lesions, negative BAL fungal smears and cultures to date, lack of fever, pleuritic chest pain , hemopysis. Unable to obtain lung biopsy for tissue diagnosis given patient currently on Plavix for recent PCI with stenting 2 months ago. BAL GM remains non specific in this setting. Recommend to discontinue empiric Voriconzole at this time. Non infectious differentials include worsening pulmonary fibrosis,advancing ILD, underlying rheumatological disorders Thank you for this interesting consult. Above discussed with patient and his daughter who acknowledge understanding. Will continue to follow along. Coding Level of Care Code Acute Photolithographic Stripper for Chelsea Albert Diagnoses Pneumocystis jiroveci pneumonia B59 Laterality: unspecified laterality Lung location: unspecified part of lung Acute hypoxemic respiratory failure J96.01 Pulmonary fibrosis J84.10 COPD (chronic obstructive pulmonary disease) J43.9 COPD type: emphysema Emphysema type: unspecified P-ANCA titer positive R76.8
--- NOTE | 2020-07-03 20:12 | PC.NURSE ---
Received bed side shift report from off going nurse. Pt's plan of care reviewed. Pt is resting in bed. Respirations are even and unlabored. No s/sx of distress noted. Pt is alert and oriented and able to make her own decisions. Pt denies any pains or concerns at this time time. Only deficits noted is slight right facial droop and slow speech. Bed in lowest and locked position, call light and water within reach, x's 2 rails up. Will continue to monitor pt.
[2020-07-03] MEDS: pantoprazole DR 40 mg Tablet PO (20:37)
[2020-07-03] MEDS: benzonatate 100 mg Capsule PO (20:37)
[2020-07-03] MEDS: guaiFENesin-codeine UDC 10 mL 5 ML PO (20:46)
[2020-07-03 20:54] LABS: Glucose Point of Care 164 mg/dL (70-110)
--- NOTE | 2020-07-03 21:20 | PC.NURSE ---
Received bed side shift report from off going nurse. Pt's plan of care reviewed. Pt is resting in bed. Respirations are even and unlabored. No s/sx of distress noted. Pt is alert and oriented and able to make his own decisions. Pt c/o mild lower back pain s/p pain medication. Pt states that his pain is getting better and rates pain 4/10 and states that pain is being managed. Pt was given a hydrocodone even though he has an allergy to hydrocodones. Pt states they only keep him away but has no severe adverse affects from taking them. Pt denies any other pains or concerns at this time. Bed in lowest and locked position, call light and water within reach, x's 2 rails up. Will continue to monitor pt.
[2020-07-04] VITALS (248 sets, daily range): BP systolic 98–128; BP diastolic 58–80; PULSE 75–143; RESP 12–36; TEMP 36.6–36.9; O2SAT 70–96; BMI 23.7
[2020-07-04] MEDS: heparin 5,000 unit/mL INJ 1 mL 5000 UNIT SUBCUT ×3 (00:40→15:56)
[2020-07-04] MEDS: ipratropium-albuterol 3 mL Neb INHALATION ×3 (03:14→14:18)
[2020-07-04] MEDS: guaiFENesin-codeine UDC 10 mL 5 ML PO (04:07)
[2020-07-04 04:19] LABS: Basophils % 0.1 %; Hematocrit 40.2 % (42.0-52.0); Hemoglobin 13.4 g/dL (11.7-16.6); Lymphocytes # 1.6 10^3/uL (0.8-4.8); Lymphocytes % 11.3 %; Mean Corpuscular HGB Conc 33.3 g/dL (30.0-36.0); Mean Corpuscular Hemoglobin 27.1 pg (28.0-34.0); Mean Corpuscular Volume 81.4 fL (80-94); Mean Platelet Volume 8.9 fL (7.4-10.4); Monocytes # 0.3 10^3/uL (0.2-0.9); Monocytes % 2.4 %; Neutrophils # 12.22 10^3/uL (1.8-7.7); Neutrophils % 85.4 %; Nucleated Red Blood Cells % 0 %; Platelet Count 310 10^3/cmm (130-400); Red Blood Count 4.94 10^6/uL (4.1-5.3); Red Cell Distribution Width 14.6 % (12.1-15.1); White Blood Count 14.3 10^3/uL (4.0-10.0)
[2020-07-04 04:24] LABS: Alanine Aminotransferase 14 U/L (0-41); Albumin Level 3.5 g/dL (3.5-5.2); Alkaline Phosphatase 81 IU/L (40-130); Anion Gap 17.8 (5-19); Aspartate Amino Transferase 16 U/L (0-40); Blood Urea Nitrogen 24 mg/dL (8-23); Carbon Dioxide 21 mmol/L (22-29); Chloride 93 mmol/L (98-107); Glucose 112 mg/dL (65-115); Osmolality Calculated 267 mOsm/kg (285-295); Potassium 5.8 mmol/L (3.5-5.1); Sodium 126 mmol/L (136-145); Total Bilirubin 0.3 mg/dL (0.15-1.2); Total Protein 6.5 g/dL (6.6-8.7)
[2020-07-04 04:26] LABS: Lactate (Lactic Acid level) 1.7 mmol/L (0.5-2.2)
[2020-07-04 04:40] LABS: C Reactive Protein 154.5 mg/L (0.0-4.9); Phosphorus 3.7 mg/dL (2.5-4.5)
[2020-07-04] MEDS: sulfamethoxazole-trimeth inj 400 MG in dextrose 5 % 500 ML 500 MG IV ×3 (04:44→16:26)
[2020-07-04 04:50] LABS: NT Pro B Type Natriuretic Pept 122 pg/mL (0-125)
[2020-07-04 04:57] LABS: ABG PH Result 7.46 (7.35-7.45); Arterial Blood Gas Hematocrit 43.2 % (42-52); Base Excess ABG -0.5 mmol/L (-2.0-2.0); Blood Gas Sample Site Brachial, right; Blood Gas Sample Type Arterial; HCO3 ABG 22.6 mmol/L (22-26); PO2 ABG 78.6 mmHg (80.0-100.0)
[2020-07-04] MEDS: aspirin 81 mg EC Tablet PO (05:57)
[2020-07-04] MEDS: clopidogrel 75 mg Tablet PO (05:57)
[2020-07-04] MEDS: metoprolol succinate ER (24 HR) 25 mg Tablet 12.5 MG PO (05:57)
[2020-07-04] MEDS: levoFLOXacin 750 mg Tablet PO (05:57)
[2020-07-04] MEDS: HYDROcodone-acetaminophen 5-325 mg Tablet 1 TAB PO ×2 (06:02→19:36)
[2020-07-04] MEDS: escitalopram 10 mg Tablet 20 MG PO (06:03)
[2020-07-04] MEDS: megestrol 400 mg/10 mL UDC PO (06:15)
--- NOTE | 2020-07-04 07:00 | XR_ITS ---
WS: [id number] Exam: XR chest 1V portable [id number] Date/Time of Exam: 07/04/2020 7:00 AM Reason For Exam: sob Comparison 07/03/2020. Infiltrates in the left lung are unchanged and thought to represent active pneumonia. Probable chroni c interstitial changes in the right lung base. Chronic elevation of the right diaphragm. Cardiomedias tinal structures appear normal. The lungs are fully inflated. XR/XR chest 1V portable [id number] IMPRESSION: 1. Pneumonia in the lingula and left lower lobe showing no change. Probable chr onic right basal changes.
[2020-07-04 07:51] LABS: Glucose Point of Care 114 mg/dL (70-110)
[2020-07-04] MEDS: predniSONE 20 mg Tablet 80 MG PO (08:24)
[2020-07-04] MEDS: cyclobenzaprine 10 mg Tablet PO (08:24)
[2020-07-04] MEDS: CLONazepam 0.5 mg Tablet 0.25 MG PO (08:25)
[2020-07-04] MEDS: sodium chloride 1 gm Tablet PO (08:26)
[2020-07-04] MEDS: sodium polystyrene sulfonate 15 gm/60 mL Btl PO ×2 (08:27→13:30)
[2020-07-04] MEDS: dextrose 50% syringe 50 mL IVP (08:29)
[2020-07-04] MEDS: FUROsemide 10 mg/mL SDV 2mL 20 MG IVP (08:40)
--- NOTE | 2020-07-04 09:10 | ECG_ITS ---
[facility] Test Date: 2020-07-04 Pat Name: Gregg Babcock Department: Room: ICU06 Gender: Male Prototype Carpenter: : 1955 Requested By: Wilfredo Melendez Order Number: [id number] Jaelyn MD: Chelsea Parikh M.D. Measurements Intervals [place] Rate: 110 P: 62 NH: 156 QRS: -31 QRSD: 89 T: 70 QT: 263 QTc: 357 Interpretive Statements SINUS TACHYCARDIA POSSIBLE LEFT ATRIAL ENLARGEMENT [-0.1mV P WAVE IN V1/V2] MARKED LEFT AXIS DEVIATION [QRS AXIS < -30] NONSPECIFIC ST & T-WAVE ABNORMALITY Compared to ECG 07/03/2020 14:23:30 Sinus rhythm no longer present T-wave abnormality still present Electronically Signed On 07-04-2020 20:22:37 CDT by Chelsea Parikh M.D. [id number]
--- NOTE | 2020-07-04 10:36 | PC.CHAP ---
Pastoral Care Encounter/Spiritual Assessment Type of Contact [] Declined vehicle assembler visit [] Patient/Family/Request visit [] Outpatient visit [] Follow-up visit [] Physician referral [] Code/Alert [x] Routine visit [] Staff referral [] Actively dying [] Patient sleeping [] Family support [] [] Out of room [] Palliative care [] [] Receiving care in room [] Pre-surgical visit [] Trauma [] Long length of stay [x] ICU visit [] Other: Relational/Emotional Strength [] Patient feels connected with others/family/visitors/staff [] Distress [] Loneliness/isolation [] Abandonment Spirituality of Patient [x] Person of Dian [] Attends Zoroastrianism of their Dian [] Believes in Prayer [] Reads Bible or Anglican materials [] There are Spiritual issues to be addressed Wound Care Physician Interventions [x] Prayer [x] Active listening [x] Non-anxious presence [x] Spiritual/emotional support [] Crisis/trauma care [] Spiritual counseling [] Bereavement support [] Provided bereavement packet [] Provided Bible/devotional materials [] Provided toy/stuffed animal, coloring book to patient or family member [] Provided Communion [] Anointing/[place] [] Salvation [x] Completed spiritual assessment [] Other: Impact on Illness or Injury [] Angry [] Fearful [] Anxious [] Often cries [] Exhaustion [] Unable to work [] Unable to attend congregation [] Unable to walk/stand [] Unable to read [] Unable to drive [] Unable to eat/drink [] Unable to sleep [] Unable to be with family [] Patient intubated [] Other: Summary patient had a hard morning today... breathing was very difficult.. patient stopped smoking about 8 months ago and we prayed that his air waYS and lungs will quickly repair.... Time spent with patient 15 min
[2020-07-04] MEDS: sodium chloride 1 gm Tablet 2 GM PO ×2 (10:41→16:00)
[2020-07-04 12:45] LABS: Glucose Point of Care 134 mg/dL (70-110)
[2020-07-04] MEDS: saline nasal spray 44mL Btl 1 SPRAY NASAL (13:44)
[2020-07-04 13:58] LABS: Quantiferon Mitogen >10.00 IU/mL; Quantiferon Nil 0.01 IU/mL; Quantiferon TB Gold NEGATIVE (NEGATIVE)
--- NOTE | 2020-07-04 14:30 | P.PN_ITS ---
Subjective Subjective: Interval history: Infectious disease progress note: 02 requiremenst improving in the morning to 45% fi02 at 55lpm however patient subsequently desaturated to 70% with minimal movement following which fi02 increased to 100%, titrated down to 70% subsequently. Denies any new symptoms. Afberile, hemodynamics stable. Developing hyperkalemia 5.8, hyponatremia 126, asymptomatic from neurological perspective thus far Medications: Reviewed: Yes Vitals/I&O/Wt Last Vital Signs Temp 98.4 F 07/04/20 17:25 Pulse 112 H 07/04/20 19:35 Resp 19 H 07/04/20 19:35 BP 120/76 07/04/20 19:55 Pulse Ox 86 L 07/04/20 19:40 07/04/20 07/04/20 07/05/20 14:59 22:59 06:59 Intake Total 885 / 885 240 / 1125 Output Total 1450 / 1450 700 / 2150 Balance -565 / -565 -460 / -1025 Weight last 48 hrs Weight 77.252 kg Weight 73.028 kg Physical Exam Narrative: EXAM NARRATIVE: GEN: Awake, alert and oriented, no acute distress but appears more tired compared to last exam HEENT: hi flow NC in place CVS: S1S2 N RS: Fine crackles at B/L lung bases Abd: Soft, nt/nd , bs+ COLOR DEVELOPER: no focal neuro deficits Urinary Catheter Management^: Jang: Cath Placed During This Visit: yes Reason for Continuing Indwelling Catheter: Accurate Measurement of Urinary Output in Critically Ill Patients Urinary Catheter Date of Insertion: 07/02/20 Urinary Catheter Time of Insertion: 02:55 Data : 07/04/20 03:30 07/04/20 16:55 Micro: Microbiology 07/03/20 17:50 MRSA Culture - Final Nose 07/02/20 17:50 Urine Culture - Preliminary Urine,Clean Catch 07/04/20 03:20 Blood Culture - Preliminary Blood SPECIMEN COLLECTED 07/04/20 03:19 Blood Culture - Preliminary Blood SPECIMEN COLLECTED A&P Assessment and plan (1) Pneumocystis jiroveci pneumonia: Status: Acute Qualifiers: Laterality: unspecified laterality Lung location: unspecified part of lung Qualified Code(s): B59 - Pneumocystosis (2) Acute hypoxemic respiratory failure: Status: Acute (3) Pulmonary fibrosis: Status: Acute (4) COPD (chronic obstructive pulmonary disease): Status: Acute Qualifiers: COPD type: emphysema Emphysema type: unspecified Qualified Code(s): J43.9 - Emphysema, unspecified (5) P-ANCA titer positive: Status: Acute Additional A&P Information 64M with COPD/hypoxemic respiratory failure presented with progressively worsening dyspnea over the past month, acutely worsened since 1 week with corresponding worsening GGOs B/L on serial CT chest imaging on 06/21 and 07/01. # Presumptive PJP pneumonia : Based on worsening dyspnea, acute hypoxic repiratory failure, B/L rapidly worse andrés GGOs in pneumonitis pattern, elevated LDH and positive expectorated sputum PJP PCR with predominant neutrophilic infiltrate on BAL. Started on bactrim 2tab DS TID on 06/26, worsening GGOS and 02 requirements thereafter by 07/01, not unexpected in immunocompetent persons newly initiated on treatment due to inflammation generated as a result of dying organisms. No clear underlying immunocompromise evident, last taken steroids March 2020 for 5 days. HIV screen negative. No lymphopenia evident on labs. No h/o underlying malignancy. Risk factors in his case could be Copd/fibrosis and under lying rheumatological disorder given + pAnca and RA factor. He has been initiated on iv bactrim 20mg/kg per day divided into 4 doses on 07/01, which is appropriate dosing. Also on cocomitatnt steroids 80mg daily for severe PJP, recommend to continue at 80mg daily for 5 days and then start to taper. Developing hyponatremia and hyperkalemia to 5.8 on labs today, which may be related to high dose bactrim, renal function currently stable. For now, plan to continue with bactrim while treating the hyperkalemia and monitor for response. If worsening of electrolytes noted in spite of appropriate treatment, will consider switch to clindamycin/primaquine. G6PD screen sent this am. Induced sputum PJP PCR has additionally been ordered due to discrepancy of PCR results (+ expectorated sputum on 06/16, negative BAL PCR on 06/22), remains pending, as does serum BDG. Other notable w/up: negative COVID pcr 06/16, negative rapid covid ag on 07/01, negative HIV sscreen, negative MRSA PCR, negative legionella Ag, pending blood cx and respiratory viral panel. # Note made of + Aspergillus galactomannan index at 1.3 from BAL on 06/22. Suspect this to be a false positive vs related to mold colonization of airways rather than IPA given absence of underlying host factors such as profound immunocompromise, absence of radiological features on CT such as cavitation or well circumscribed lesions, negative BAL fungal smears and cultures to date, lack of fever, pleuritic chest pain , hemopysis. Unable to obtain lung biopsy for tissue diagnosis given patient currently on Plavix for recent PCI with stent ing 2 months ago. BAL GM remains non specific in this setting. Discontinued empiric Voriconzole 07/03. Non infectious differentials include worsening pulmonary fibrosis,advancing ILD, underlying rheumatological disorders Will continue to follow along. 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
--- NOTE | 2020-07-04 14:31 | PM.PN ---
Subjective Subjective: Interval history: Patient was examined multiple times throughout the day, he does have episodes of significant desaturation with minimal movement in bed, currently on high flow nasal cannula, complaining of shortness of breath, no fevers, no chills, no chest pain, no lightheadedness, no dizziness, but does complain of headaches Vitals/I&O/Wt Last Vital Signs Temp 98.0 F 07/04/20 13:20 Pulse 101 H 07/04/20 14:22 Resp 18 07/04/20 14:18 BP 118/77 07/04/20 13:20 Pulse Ox 91 07/04/20 14:18 07/03/20 07/04/20 07/04/20 22:59 06:59 14:59 Intake Total 875 / 2110 1050 / 3160 885 / 885 Output Total 800 / 800 1300 / 2100 1450 / 1450 Balance 75 / 1310 -250 / 1060 -565 / -565 Weight last 48 hrs Weight 77.252 kg Weight 73.028 kg Physical Exam Const: COMMON NORMALS: no acute distress and patient oriented x3 GENERAL APPEARANCE: frail appearing HENMT: COMMON NORMALS: normocephalic HEAD & SCALP: normocephalic Neck/C-Spine: COMMON NORMALS: no JVD Resp: COMMON NORMALS: normal respiratory effort, No retractions and No use of accessory muscles AUSCULTATION: crackles Cardio: COMMON NORMALS: no JVD, regular rate, regular rhythm, S1 normal heart sound present and S2 normal heart sound present RATE: regular rate RHYTHM: regular rhythm HEART SOUNDS: S1 normal heart sound present and S2 normal heart sound present GI: COMMON NORMALS: Normal to inspection, nondistended, normoactive bowel sounds present, Soft to palpation, non-tender, No hepatosplenomegaly present, no masses and no bruits PALPATION: Yes Soft to palpation and Yes No hepatosplenomegaly present Extremity: COMMON NORMALS: capillary refill normal, no clubbing, cyanosis or edema, no calf tenderness and no pedal edema Neuro: COMMON NORMALS: patient oriented x3 Psych: COMMON NORMALS: mental status grossly normal Urinary Catheter Management^: Jang: Cath Placed During This Visit: yes Reason for Continuing Indwelling Catheter: Accurate Measurement of Urinary Output in Critically Ill Patients Urinary Catheter Date of Insertion: 07/02/20 Urinary Catheter Time of Insertion: 02:55 Data : 07/04/20 03:30 07/04/20 03:30 Micro: Microbiology 07/03/20 17:50 MRSA Culture - Final Nose 07/02/20 17:50 Urine Culture - Preliminary Urine,Clean Catch 07/04/20 03:20 Blood Culture - Preliminary Blood SPECIMEN COLLECTED 07/04/20 03:19 Blood Culture - Preliminary Blood SPECIMEN COLLECTED A&P Assessment and plan (1) Acute hypoxemic respiratory failure: Secondary to PCP pneumonia, possible aspergillosis. Unclear whether may have component of underlying interstitial lung disease secondary to autoimmune condition with opportunistic infections or acquired. P-ANCA positive. -Patient was moved to the ICU this afternoon due to increasing shortness of breath, hypoxia, currently on high flow -White blood cell count 14.3, LDH 369 -CT chest shows interstitial fibrosis of the lungs with nonspecific patterns, regions of honeycombing, groundglass attenuation in the lungs appears reduced in the right lower lobe, groundglass features in the lingula and in the inferior aspect of the left lower lobe appear increased -Requested sputum cultures. Repeating the sputum for PCP PCR. Obtain urine bacterial antigens. -Rapid COVID-19 negative -Another Covid test has been ordered -Repeat PCP, sputum cultures -QTc 357 milliseconds -Continue p.o. Levaquin -Continue IV Bactrim -Voriconazole has been stopped for now -Prednisone 80 mg daily -He received 20 mg IV Lasix today -Continuous pulse oximetry. Avoid hyperoxia, target saturation 88-92%. -Continue nebulizer treatment -Continue incentive spirometer -Dr. Mayfield on consult -Infectious disease on consult Plan for today, continue Levaquin, Bactrim, a steroids, continue ICU monitoring monitor serum sodium, monitor serum potassium, monitor respiratory status Status: Acute (2) Pneumocystis jiroveci pneumonia: Status: Acute Qualifiers: Laterality: unspecified laterality Lung location: unspecified part of lung Qualified Code(s): B59 - Pneumocystosis (3) Aspergillosis: Voriconazole. Additionally assess Fungitell. History of aspergilloma, although at this time no changes to suggest recurrence on CT. Status: Acute (4) P-ANCA titer positive: 1:160 titer. RF +22 (upper normal 14), although significance of this is not clear as this may increase with age. ABE negative. I see that additional ANCA with MPO + PR3, anti-CCP, UA, urine protein, QuantiFERON gold, hepatitis B and C studies were ordered by Dr Jauregui, but from discussion with his daughter appears dose were going to be drawn prior to his appointment tomorrow morning. Pending additional rheumatologic assessment. -So far hepatitis panel negative, HIV panel negative, CCP IgG less than 16, -TB test pending Status: Acute (5) Interstitial lung disease: Possible interstitial lung disease in addition to emphysema. Additional assessment in progress. Treat acute infection. Continue work with pulmonology, infectious disease Status: Acute (6) Emphysema of lung: At home previously oxygen support 2 L as needed. Treat underlying infections as above. Antibiotics, steroids as above. DuoNeb treatments. Sputum culture. Status: Acute (7) Hyponatremia: Down to 126 today, with complaints of headaches Slightly fluid overloaded today on chest x-ray. May be secondary to acute pulmonary condition, fluid overload, Bactrim pneumocystis pneumonia. Monitor with Bactrim treatment which may also affect sodium. 1 dose of 20 mg IV Lasix today, start salt tablets, recheck BMP at 4 Treat pulmonary conditions. Regular diet. Seizure precautions, neurochecks If not tolerating Bactrim may need alternative agent. Status: Acute (8) Hyperkalemia: 5.8 today, likely second to Bactrim therapy, low potassium diet, insulin with D50, Kayexalate repeat BMP, monitor EKG, monitor telemetry Status: Acute (9) Coronary artery disease: Stenting of LAD in April. Ejection fraction 60% during coronary angiography with noted normal LV function. Reports has not been having any chest pain recently, denies needing nitroglycerin. Continue aspirin, Plavix, beta-nash, statin. Status: Acute Qualifiers: Coronary Disease-Associated Artery/Lesion type: [place] artery [place] vs. transplanted heart: [place] heart Associated angina: with unspecified angina Qualified Code(s): I25.119 - Atherosclerotic heart disease of [place] coronary artery with unspecified angina pectoris (10) Muscular aches: Reports mild muscle aches recently, especially with exertion. May be secondary to hypoxia. Lactic acid normal. Normal CK, aldolase. Mild. If worsening or persistent consider holding statin to exclude statin induced myopathy. Status: Acute Additional A&P Information History of diabetes: Recorded in the chart, although he is not on any medications, appears possibly remote history. However, currently on steroids. Will maintain consistent carbohydrate diet. Mild insulin sliding scale. Hemoglobin A1c 5.4 Sinus tachycardia, likely secondary to respiratory failure as above continue to monitor Attestations Medical Necessity Statement*: Patient requires hospitalization, inpatient, for acute hypoxic respiratory failure secondary PCP pneumonia, hyponatremia, hyperkalemia Time Spent in Patient Care: Greater than 35 minutes (>than 50% of time spent in counselling and/or direct pt care on unit). Coding Level of Care Code Acute Therapeutic Program Worker for g Fwd Diagnoses Acute hypoxemic respiratory failure J96.01 Pneumocystis jiroveci pneumonia B59 Laterality: unspecified laterality Lung location: unspecified part of lung Aspergillosis B44.9 P-ANCA titer positive R76.8 Interstitial lung disease J84.9 Emphysema of lung J43.9 Hyponatremia E87.1 Hyperkalemia E87.5 Coronary artery disease I25.119 Coronary Disease-Associated Artery/Lesion type: [place] artery [place] vs. transplanted heart: [place] heart Associated angina: with unspecified angina Muscular aches M79.10
--- NOTE | 2020-07-04 15:23 | PM.PN ---
Subjective Subjective: Interval history: The patient was seen and examined today. Overall he looks comfortable while resting but with movement he has significant desaturation. Patient is currently on high flow nasal cannula. This morning his arterial blood gas revealed a PO2 of 78 on 55% oxygen however during the day his oxygen saturation dropped to 70% with minimal exertion and he was put back 100%. Currently he is back down to 70% again. The patient has also developed hyponatremia and mild hyperkalemia likely secondary to Bactrim therapy. Medications: Reviewed: Yes Vitals/I&O/Wt Last Vital Signs Temp 98.0 F 07/04/20 15:00 Pulse 105 H 07/04/20 15:10 Resp 24 H 07/04/20 15:10 BP 113/70 07/04/20 15:10 Pulse Ox 90 07/04/20 15:10 07/04/20 07/04/20 07/04/20 06:59 14:59 22:59 Intake Total 1050 / 3160 885 / 885 Output Total 1300 / 2100 1450 / 1450 Balance -250 / 1060 -565 / -565 Weight last 48 hrs Weight 170 lb 5 oz Weight 161 lb Physical Exam Narrative: EXAM NARRATIVE: General: Patient is awake alert and oriented, mildly tachypneic, no distress while resting Neck: No JVD Respiratory: Auscultation: Bilateral crackles more on the left side, no wheezing or rhonchi Cardiovascular: Regular rate and rhythm, S1-S2 present, no murmur, no peripheral edema. Abdomen: Soft, nontender, nondistended, positive bowel sound Musculoskeletal: No obvious joint deformity Skin: No rash, no evidence of erythema nodosum or multiforme. Neuro: Mental status is normal, no gross cranial nerve deficit, normal motor and coordination. Urinary Catheter Management^: Jang: Cath Placed During This Visit: yes Reason for Continuing Indwelling Catheter: Accurate Measurement of Urinary Output in Critically Ill Patients Urinary Catheter Date of Insertion: 07/02/20 Urinary Catheter Time of Insertion: 02:55 Data : 07/04/20 03:30 07/04/20 03:30 Micro: Microbiology 07/03/20 17:50 MRSA Culture - Final Nose 07/02/20 17:50 Urine Culture - Preliminary Urine,Clean Catch 07/04/20 03:20 Blood Culture - Preliminary Blood SPECIMEN COLLECTED 03/23/21 03:19 Blood Culture - Preliminary Blood SPECIMEN COLLECTED Attestation for Other Data: I personally reviewed and interpreted the following: Other data: I have reviewed the patient's laboratory microbiologic and radiologic data. A&P Assessment and plan (1) Acute hypoxemic respiratory failure: The patient has developed acute hypoxic respiratory failure secondary to PCP pneumonia. The patient is HIV negative. He is on high flow nasal cannula on 70% FiO2 saturating in low 90s. The patient had several episodes of desaturation with minimal exertion this morning. Status: Acute (2) Pneumocystis jiroveci pneumonia: The patient is currently on IV trimethoprim sulfamethoxazole. He is also on 80 mg of prednisone. The patient has hyponatremia and mild hyperkalemia likely secondary to IV Bactrim therapy. We will continue the current therapy. We have a BMP to check at 4 PM and the patient is on salt tablets. Status: Acute Qualifiers: Laterality: unspecified laterality Lung location: unspecified part of lung Qualified Code(s): B59 - Pneumocystosis (3) Aspergillosis: The radiologic appearance is not consistent with invasive aspergillus infection. The voriconazole was discontinued. The infectious disease team is following on the patient. Status: Acute (4) Interstitial lung disease: The patient does have evidence of interstitial lung disease predominantly in the right lung. The groundglass opacities likely secondary to the PCP pneumonia. Once all of this settles down, the patient will need further work-up for interstitial lung disease and possible antifibrotic therapy Status: Acute (5) Emphysema of lung: The patient has significant history of smoking and emphysema. We will continue with the nebulized treatment for now. After discussion with the patient, we have decided to transfer the patient to [facility]. I have discussed this with the patient's family as well. Status: Acute Attestations Medical Necessity Statement*: Will defer to the primary team Coding Level of Care Code Acute Business Systems Lead for [facility] Diagnoses Acute hypoxemic respiratory failure J96.01 Pneumocystis jiroveci pneumonia B59 Laterality: unspecified laterality Lung location: unspecified part of lung Aspergillosis B44.9 Interstitial lung disease J84.9 Emphysema of lung J43.9
[2020-07-04 17:33] LABS: Glucose Point of Care 200 mg/dL (70-110)
[2020-07-04] MEDS: atorvastatin 40 mg Tablet 20 MG PO (17:52)
--- NOTE | 2020-07-04 18:00 | PM.TDS ---
Transfer Summary Providers Date of Admission: 07/01/20 16:33 Date of Discharge: 07/04/20 Attending Provider at Admission: Gonzalo Cobian Attending Provider at Transfer: Wilfredo Melendez MD Primary Care Provider: Daniel Nogueira DO Anticipated Date of Transfer: Anticipated date of transfer: 07/04/20 Receiving Facility & Provider: Receiving Provider: [] Receiving facility: [] Diagnoses at Discharge Discharge Diagnosis (1) Acute hypoxemic respiratory failure: Status: Acute (2) Pneumocystis jiroveci pneumonia: Status: Acute Qualifiers: Laterality: unspecified laterality Lung location: unspecified part of lung Qualified Code(s): B59 - Pneumocystosis (3) Aspergillosis: Status: Acute (4) Interstitial lung disease: Status: Acute (5) Emphysema of lung: Status: Acute Reason for Visit Reason for Visit: DIFF BREATHING, CP/ SENT BY DR MALDONADO Hospital Course Hospital Course this is a 64-year-old male with a past medical history of emphysema, history of right lung aspergilloma, former smoker, with history of interstitial lung disease, on 2 L nasal cannula only as needed, history of CAD with recent history of stent placement in April Recently patient was found to have evidence of interstitial lung disease on CT imaging, he had followed up with pulmonary service, had a bronchoscopy and induced sputum. Induced sputum PCR was positive for PCP, thus he started Bactrim prednisone therapy on 06/23/2020. In addition he was also found to have positive Aspergillus antigen from sputum sample in bronchoscopy. In addition he was referred to rheumatology as his p-ANCA antibody was positive, titer 1: 160, positive rheumatoid factor 22, negative ABE. Patient presented to [facility] emergency room on 07/01/2020 for concerns for worsening shortness of breath. Patient was admitted to [facility] general medical floors for acute hypoxic respiratory failure secondary to P ZACHERY pneumonia. On admission he required up to 8 L nasal cannula, which was weaned down to 5 to 6 L nasal cannula, CT of the chest showed findings of interstitial fibrosis of the lungs with nonspecific pattern, regions of honeycombing and the posterior lower lobes, UIP and nonspecific interstitial pneumonia not excluded. He had groundglass attenuation in the right lower lobe, lingula, inferior aspect of left lower lobe. Patient was started on Bactrim therapy, prednisone, voriconazole, Levaquin and clinically monitored. He did also receive intermittent diuresis for possible fluid overload without any significant improvement of his symptomatology. Patient's condition started to gradually worsen, increased shortness of breath with minimal exertion, with increased oxygen requirements, on 07/01/2020, he was moved to the ICU due to worsening hypoxic respiratory failure, he was placed on high flow nasal cannula. The pulmonary and infectious disease service were consulted. Patient's prednisone dose was adjusted, continued Bactrim therapy, voriconazole was discontinued, received intermittent diuretic therapy. Patient also had additional testing through the infectious disease service, his rapid Covid was negative on admission, his Covid PCR was negative on 24 June, repeat Covid testing has been ordered, HIV panel negative, hepatitis B panel negative, TB quant gold negative, the rest of his viral panel is pending, g6pd pending. In addition he has had an extensive immunologic work-up through rheumatology service, which is pending. Patient has subsequently developed hyponatremia serum sodiums as low as 126, hyperkalemia serum potassium as high as 5.8 secondary to Bactrim therapy. No seizures, but patient has had complaints of headaches, no EKG changes. This was managed by salt tablets, Kayexalate, IV insulin/D50. Patient shortness of breath continues to worsen, he is requiring up to 50 L 50% FiO2, shortness of breath with minimal movement in bed, he desaturates into the low 80s, increased work of breathing. After discussion with pulmonary and infectious disease service, the determination was made that patient would be better served in a tertiary level care center. In addition we had further concerns about the availability of antibiotics, as patient is developing complications from Bactrim therapy, he might require primaquine which we do not have here at [facility]. Case was discussed with [facility], in [place], patient has been accepted, accepting provider is Dr. Nettles. Physical Exam Const: COMMON NORMALS: no acute distress and patient oriented x3 HENMT: COMMON NORMALS: normocephalic HEAD & SCALP: normocephalic Neck/C-Spine: COMMON NORMALS: no JVD Resp: COMMON NORMALS: normal respiratory effort, No retractions, No use of accessory muscles and clear to auscultation bilaterally AUSCULTATION: clear to auscultation bilaterally Cardio: COMMON NORMALS: no JVD, regular rate, regular rhythm, S1 normal heart sound present and S2 normal heart sound present RATE: regular rate RHYTHM: regular rhythm HEART SOUNDS: S1 normal heart sound present and S2 normal heart sound present GI: COMMON NORMALS: Normal to inspection, nondistended, normoactive bowel sounds present, Soft to palpation, non-tender, No hepatosplenomegaly present, no masses and no bruits PALPATION: Yes Soft to palpation and Yes No hepatosplenomegaly present Extremity: COMMON NORMALS: capillary refill normal, no clubbing, cyanosis or edema, no calf tenderness and no pedal edema Neuro: COMMON NORMALS: patient oriented x3 Psych: COMMON NORMALS: mental status grossly normal Urinary Catheter Management^: Jang: Cath Placed During This Visit: yes Reason for Continuing Indwelling Catheter: Accurate Measurement of Urinary Output in Critically Ill Patients Urinary Catheter Date of Insertion: 07/02/20 Urinary Catheter Time of Insertion: 02:55 TS Data Data Completed and Pending: Completed Studies During Hospitalization Category Date Time Status CT chest wo con 7 1250 Urgent Cat Scan 07/01/20 15:01 Completed XR chest 1V [id number] Routine Exams 07/03/20 08:33 Completed XR chest 1V alcides ble [id number] Routine Exams 07/04/20 07:00 Completed Pending at discharge Category Date Time Status Arterial Blood Ga s W/O Coox AM LABS Lab 07/05/20 04:00 Ordered Arterial Blood Ga s W/O Coox AM LABS Lab 07/06/20 04:00 Ordered Basic Metabolic P phuong Routine Lab 07/04/20 16:55 Received Blood Culture AM LABS Lab 07/04/20 03:20 Results C Reactive Protei n AM LABS Lab 07/05/20 04:00 Ordered C Reactive Protei n AM LABS Lab 07/06/20 04:00 Ordered Complete Blood Co unt w/Auto AM LABS Lab 07/05/20 04:00 Ordered Complete Blood Co unt w/Auto AM LABS Lab 07/06/20 04:00 Ordered Comprehensive Met abolic Panel AM LA BS Lab 07/05/20 04:00 Ordered Comprehensive Met abolic Panel AM LA BS Lab 07/06/20 04:00 Ordered [id number] te Dehydrogen AM L ABS Lab 07/04/20 03:19 Received Lactate (Lactic A nando level) AM LABS Lab 07/05/20 04:00 Ordered Lactate (Lactic A nando level) AM LABS Lab 07/06/20 04:00 Ordered Magnesium AM LABS Lab 07/05/20 04:00 Ordered Magnesium AM LABS Lab 07/06/20 04:00 Ordered Miscellaneous Radha t Routine Lab 07/01/20 15:26 Received Miscellaneous Radha t Routine Lab 07/02/20 12:45 Received NT Pro B Type Yissel riuretic Pept QAM Lab 07/05/20 06:00 Ordered NT Pro B Type Yissel riuretic Pept QAM Lab 07/06/20 06:00 Ordered Phosphorus AM LAB S Lab 07/05/20 04:00 Ordered Phosphorus AM LAB S Lab 07/06/20 04:00 Ordered Pneumocystis jiro vecii, QT PCR Rout ine Lab 07/01/20 19:56 Uncollected Procalcitonin AM LABS Lab 07/05/20 04:00 Ordered Procalcitonin AM LABS Lab 07/06/20 04:00 Ordered Respiratory Viral Panel PCR Stat Lab 07/03/20 17:50 Received Sputum Culture an d Gram Stain Routi ne Lab 07/01/20 20:00 Ordered Urine Culture Rou parveen Lab 07/02/20 17:50 Results Labs from last 24 hours 07/04/20 07/04/20 07/04/20 17:30 16:55 11:22 WBC RBC Hgb Hct MCV MCH MCHC RDW Plt Count MPV Neut % (Auto) Lymph % (Auto) Kinney % (Auto) Eos % (Auto) Baso % (Auto) Neut # (Auto) Lymph # (Auto) Kinney # (Auto) Eos # (Auto) Baso # (Auto) Nucleated RBC % (a uto) Nucleated RBCs # G6PD Specimen Type Sample Site ABG pH ABG pCO2 ABG pO2 ABG HCO3 ABG Base Excess Erickson Test Hematocrit O2 Delivery Device O2 Liters/Min FiO2 Sports Reporter ID Sodium Pending Potassium Pending Chloride Pending Carbon Dioxide Pending Anion Gap Pending BUN Pending Creatinine Pending GFR Calculation Pending Glucose Pending POC Glucose 200 H 134 H Calculated Osmolal ity Pending Lactate Calcium Pending Phosphorus Magnesium Total Bilirubin AST ALT Alkaline Phosphata se C-Reactive Protein NT-Pro-B Natriuret Pep Total Protein Albumin Globulin Procalcitonin TB (QFT) Gold In T ube TB Test (QFT) Nil TB Test (QFT) Howie gen TB Test Mitogen - Nil TB Test TB - Nil 07/04/20 07/04/20 07/04/20 07:45 04:40 03:30 WBC RBC Hgb Hct MCV MCH MCHC RDW Plt Count MPV Neut % (Auto) Lymph % (Auto) Kinney % (Auto) Eos % (Auto) Baso % (Auto) Neut # (Auto) Lymph # (Auto) Kinney # (Auto) Eos # (Auto) Baso # (Auto) Nucleated RBC % (a uto) Nucleated RBCs # G6PD Specimen Type Arterial Sample Site Brachial, right ABG pH 7.46 H ABG pCO2 32.0 L ABG pO2 78.6 L ABG HCO3 22.6 ABG Base Excess -0.5 Erickson Test N/a Hematocrit 43.2 O2 Delivery Device Not Reportable O2 Liters/Min 45.0 FiO2 56.0 Sports Reporter ID Hinja Sodium 126 L Potassium 5.8 H Chloride 93 L Carbon Dioxide 21 L Anion Gap 17.8 BUN 24 H Creatinine 0.8 GFR Calculation 98.0 Glucose 112 POC Glucose 114 H Calculated Osmolal ity 267 L Lactate Calcium 9.0 Phosphorus Magnesium Total Bilirubin 0.3 AST 16 ALT 14 Alkaline Phosphata se 81 C-Reactive Protein NT-Pro-B Natriuret Pep Total Protein 6.5 L Albumin 3.5 Globulin 3.0 Procalcitonin TB (QFT) Gold In T ube TB Test (QFT) Nil TB Test (QFT) Howie gen TB Test Mitogen - Nil TB Test TB - Nil 07/04/20 07/04/20 07/04/20 03:30 03:19 03:19 WBC 14.3 H RBC 4.94 Hgb 13.4 Hct 40.2 L MCV 81.4 MCH 27.1 L MCHC 33.3 RDW 14.6 Plt Count 310 MPV 8.9 Neut % (Auto) 85.4 Lymph % (Auto) 11.3 Kinney % (Auto) 2.4 Eos % (Auto) 0.0 Baso % (Auto) 0.1 Neut # (Auto) 12.22 H Lymph # (Auto) 1.6 Kinney # (Auto) 0.3 Eos # (Auto) 0.0 Baso # (Auto) 0.0 Nucleated RBC % (a uto) 0 Nucleated RBCs # 0.0 G6PD Specimen Type Sample Site ABG pH ABG pCO2 ABG pO2 ABG HCO3 ABG Base Excess Erickson Test Hematocrit O2 Delivery Device O2 Liters/Min FiO2 Sports Reporter ID Sodium Potassium Chloride Carbon Dioxide Anion Gap BUN Creatinine GFR Calculation Glucose POC Glucose Calculated Osmolal ity Lactate 1.7 Calcium Phosphorus Magnesium Total Bilirubin AST ALT Alkaline Phosphata se C-Reactive Protein NT-Pro-B Natriuret Pep 122 Total Protein Albumin Globulin Procalcitonin 0.10 TB (QFT) Gold In T ube TB Test (QFT) Nil TB Test (QFT) Howie gen TB Test Mitogen - Nil TB Test TB - Nil 07/04/20 07/04/20 07/03/20 03:19 03:19 20:24 WBC RBC Hgb Hct MCV MCH MCHC RDW Plt Count MPV Neut % (Auto) Lymph % (Auto) Kinney % (Auto) Eos % (Auto) Baso % (Auto) Neut # (Auto) Lymph # (Auto) Kinney # (Auto) Eos # (Auto) Baso # (Auto) Nucleated RBC % (a uto) Nucleated RBCs # G6PD Pending Specimen Type Sample Site ABG pH ABG pCO2 ABG pO2 ABG HCO3 ABG Base Excess Erickson Test Hematocrit O2 Delivery Device O2 Liters/Min FiO2 Sports Reporter ID Sodium Potassium Chloride Carbon Dioxide Anion Gap BUN Creatinine GFR Calculation Glucose POC Glucose 164 H Calculated Osmolal ity Lactate Calcium Phosphorus 3.7 Magnesium 2.0 Total Bilirubin AST ALT Alkaline Phosphata se C-Reactive Protein 154.5 H NT-Pro-B Natriuret Pep Total Protein Albumin Globulin Procalcitonin TB (QFT) Gold In T ube TB Test (QFT) Nil TB Test (QFT) Howie gen TB Test Mitogen - Nil TB Test TB - Nil 07/02/20 12:45 WBC RBC Hgb Hct MCV MCH MCHC RDW Plt Count MPV Neut % (Auto) Lymph % (Auto) Kinney % (Auto) Eos % (Auto) Baso % (Auto) Neut # (Auto) Lymph # (Auto) Kinney # (Auto) Eos # (Auto) Baso # (Auto) Nucleated RBC % (a uto) Nucleated RBCs # G6PD Specimen Type Sample Site ABG pH ABG pCO2 ABG pO2 ABG HCO3 ABG Base Excess Erickson Test Hematocrit O2 Delivery Device O2 Liters/Min FiO2 Sports Reporter ID Sodium Potassium Chloride Carbon Dioxide Anion Gap BUN Creatinine GFR Calculation Glucose POC Glucose Calculated Osmolal ity Lactate Calcium Phosphorus Magnesium Total Bilirubin AST ALT Alkaline Phosphata se C-Reactive Protein NT-Pro-B Natriuret Pep Total Protein Albumin Globulin Procalcitonin TB (QFT) Gold In T ube Negative TB Test (QFT) Nil 0.01 TB Test (QFT) Howie gen >10.00 TB Test Mitogen - Nil 0.00 TB Test TB - Nil 0.00 Vitals: Last Vital Signs Temp 98.4 F 07/04/20 17:25 Pulse 110 H 07/04/20 17:25 Resp 23 H 07/04/20 17:25 BP 123/74 07/04/20 17:25 Pulse Ox 89 L 07/04/20 17:25 TS Medications Medications Home Medications escitalopram oxalate 10 mg tablet 20 mg PO DAILY@0630 tab 03/14/20 [History Confirmed 07/01/20] nitroglycerin 0.4 mg sublingual tablet 0.4 mg SUBLINGUAL Q5M PRN #25 tab 04/18/20 [Rx Confirmed 07/01/20] simvastatin 40 mg PO BEDTIME@1730 05/02/20 [History Confirmed 07/01/20] megestrol 400 mg/10 mL (40 mg/mL) oral suspension 400 mg PO DAILY #480 ml 06/26/20 [Rx Confirmed 07/01/20] Adult Aspirin Regimen 81 mg PO DAILY@0630 07/01/20 [History Confirmed 07/01/20] Bactrim DS 2 tab PO TID@0630,1230,1730 07/01/20 [History Confirmed 07/01/20] Breztri Aerosphere 2 inh INHALATION BID@0630,1730 07/01/20 [History Confirmed 07/01/20] Protonix 40 mg PO DAILY@1730 07/01/20 [History Confirmed 07/01/20] clonazepam 0.25 mg PO BID@0630,1730 07/01/20 [History Confirmed 07/01/20] clopidogrel 75 mg PO DAILY@0630 07/01/20 [History Confirmed 07/01/20] cyclobenzaprine 10 mg PO DAILY 07/01/20 [History Confirmed 07/01/20] metoprolol succinate 12.5 mg PO DAILY@0630 07/01/20 [History Confirmed 07/01/20] Active Medications Hydrocodone Bitart/Acetaminophen (Hydrocodone-Acetaminophen 5-325 Mg Tablet) 1 tab PO Q4H PRN PRN Reason: MODERATE PAIN Last Admin: 07/04/20 06:02 Dose: 1 tab Documented by: Albuterol/Ipratropium (Ipratropium-Albuterol 3 Ml Neb) 3 ml INHALATION Q6H.RESPIRATORY [facility] Last Admin: 07/04/20 14:18 Dose: 3 ml Documented by: Albuterol/Ipratropium (Ipratropium-Albuterol 3 Ml Neb) 3 ml INHALATION Q4H PRN PRN Reason: SHORTNESS OF BREATH Aspirin (Aspirin 81 Mg Ec Tablet) 81 mg PO DAILY@06 [facility] Last Admin: 07/04/20 05:57 Dose: 81 mg Documented by: Atorvastatin Calcium (Atorvastatin 40 Mg Tablet) 20 mg PO DAILY@1730 [facility] Last Admin: 07/04/20 17:52 Dose: 20 mg Documented by: Benzonatate (Benzonatate 100 Mg Capsule) 100 mg PO TID PRN PRN Reason: MILD COUGH Last Admin: 07/03/20 20:37 Dose: 100 mg Documented by: Clonazepam (Clonazepam 0.5 Mg Tablet) 0.25 mg PO BID@0800,2100 [facility] Last Admin: 07/04/20 08:25 Dose: 0.25 mg Documented by: Clopidogrel Bisulfate (Clopidogrel 75 Mg Tablet) 75 mg PO DAILY@629 [facility] Last Admin: 07/04/20 05:57 Dose: 75 mg Documented by: Cyclobenzaprine HCl (Cyclobenzaprine 10 Mg Tablet) 10 mg PO DAILY [facility] Last Admin: 07/04/20 08:24 Dose: 10 mg Documented by: Dextrose (Dextrose 50% Syringe 50 Ml) 25 ml IVP ONCE PRN; Protocol PRN Reason: hypoglycemia protocol Dextrose (Dextrose 50% Syringe 50 Ml) 50 ml IVP PRN PRN; Protocol PRN Reason: hypoglycemia protocol Escitalopram Oxalate (Escitalopram 10 Mg Tablet) 20 mg PO DAILY@629 [facility] Last Admin: 07/04/20 06:03 Dose: 20 mg Documented by: Glucagon (Glucagon 1 Mg/Ml Inj 1 Ml) 1 mg IM ONCE PRN; Protocol PRN Reason: Adult Acute Hypoglycemia Prot. Guaifenesin/Codeine Phosphate (Guaifenesin-Codeine Udc 10 Ml) 5 ml PO Q4H PRN PRN Reason: COUGH Last Admin: 07/04/20 04:07 Dose: 5 ml Documented by: Heparin Sodium (Beef Lung) (Heparin 5,000 Unit/Ml Inj 1 Ml) 5,000 unit SUBCUT Q8H [facility] Last Admin: 07/04/20 15:56 Dose: 5,000 unit Documented by: Trimethoprim/Sulfamethoxazole (400 mg/ Dextrose) 525 mls @ 500 mls/hr IV Q6H [facility] Last Admin: 07/04/20 16:26 Dose: 500 mls/hr Documented by: Dextrose (D5w) 500 mls @ 100 mls/hr IV ONCE PRN; Protocol PRN Reason: Adult Acute Hypoglycemia Prot Insulin Aspart (Insulin Aspart 100 Unit/1 Ml) 0 unit SUBCUT TIDWM [facility]; Protocol Last Admin: 07/04/20 17:42 Dose: 4 unit Documented by: Levofloxacin (Levofloxacin 750 Mg Tablet) 750 mg PO DAILY@0600 [facility]; Protocol Last Admin: 07/04/20 05:57 Dose: 750 mg Documented by: Megestrol Acetate (Megestrol 400 Mg/10 Ml Udc) 400 mg PO DAILY@0600 [facility] Last Admin: 07/04/20 06:15 Dose: 400 mg Documented by: Metoprolol Succinate (Metoprolol Succinate Er (24 Hr) 25 Mg Tablet) 12.5 mg PO DAILY@0630 [facility] Last Admin: 07/04/20 05:57 Dose: 12.5 mg Documented by: Nitroglycerin (Nitroglycerin 0.4 Mg Sublingual Tablet) 0.4 mg SUBLINGUAL Q5M PRN PRN Reason: chest pain Pantoprazole Sodium (Pantoprazole Dr 40 Mg Tablet) 40 mg PO BEDTIME [facility] Last Admin: 07/03/20 20:37 Dose: 40 mg Documented by: Prednisone (Prednisone 20 Mg Tablet) 80 mg PO DAILY [facility] Last Admin: 07/04/20 08:24 Dose: 80 mg Documented by: Sodium Chloride (Sodium Chloride 1 Gm Tablet) 2 gm PO TID [facility] Last Admin: 07/04/20 16:00 Dose: 2 gm Documented by: Sodium Chloride (Saline Nasal [place] 44ml Btl) 1 spray NASAL PRN PRN PRN Reason: DRYNESS Last Admin: 07/04/20 13:44 Dose: 1 appful Documented by: Sodium Polystyrene Sulfonate (Sodium Polystyrene Sulfonate 15 Gm/60 Ml Btl) 15 gm PO Q6H [facility] Last Admin: 07/04/20 13:30 Dose: 15 gm Documented by: Discharge Plan Discharge Patient Disposition: Home Condition: Stable Prescriptions: No Action escitalopram oxalate [Lexapro] 10 mg tablet 20 mg PO DAILY@0630 RF: 0 nitroglycerin [Nitrostat] 0.4 mg tablet, sublingual 0.4 mg sublingual Q5M PRN (Reason: chest pain) Qty: 25 RF: 3 megestrol 400 mg/10 mL (40 mg/mL) suspension 400 mg PO DAILY Qty: 480 RF: 2 simvastatin 40 mg tablet 40 mg PO BEDTIME@173 RF: 0 cyclobenzaprine 10 mg tablet 10 mg PO DAILY RF: 0 clopidogrel 75 mg tablet 75 mg PO DAILY@0630 RF: 0 Bactrim DS 800-160 mg tablet 2 tab PO TID@0630,1230,1730 RF: 0 Adult Aspirin Regimen 81 mg tablet,delayed release (DR/EC) 81 mg PO DAILY@0630 RF: 0 metoprolol succinate 25 mg tablet extended release 24 hr 12.5 mg PO DAILY@629 RF: 0 clonazepam 0.25 mg tablet,disintegrating 0.25 mg PO BID@629,1729 RF: 0 Protonix [address] for susp in packet 40 mg PO DAILY@1729 RF: 0 Breztri Aerosphere 160-9-4.8 mcg/actuation HFA aerosol inhaler 2 inh inhalation BID@629,173 RF: 0 Discharge Orders: Transfer Out of Facility (Order); Ordered 07/04/20 Ordered By: Wilfredo Melendez Transfer Attestations Time Spent in Transfer Care*: greater than 30 min Quality Metrics Clinical Quality Measures: During this hospital stay, did patient experience: None Coding Level 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
--- NOTE | 2020-07-04 19:29 | PC.NURSE ---
Late note: moved patient to chair for breakfast. Patient does not tolerate. Oxygen saturation drops to 75% and slowly comes up only to 84%. RT increased HHF to 100% and 60L with no results. Patient moved back to bed and saturation came up to 90%.
--- NOTE | 2020-07-04 19:30 | PC.NURSE ---
recieved transfer orders. Per marcela with [facility], we got acceptance to [facility] room 691. Nurse gave pt report to char in the ICU. Report#: [phone].
[2020-07-04] MEDS: LORazepam 0.5 mg Tablet PO (19:37)
--- NOTE | 2020-07-04 19:46 | PC.NURSE ---
TRANSFER TO [facility] EMS arrived and patient transferred out at 194. [place] and 0.5 PO ativan given prior to transfer per patient request. Patient tolerating on 8L oxymask due to EMS O2 supply, patient at 89-90%. Patient given option to try air transfer if he was not comfortable with ground and patient requests that EMS take him by ground. All paperwork sent with patient and EMS, patient belongings with him, and [facility] ICU called to notify of patient being transferred, O2 updates, and ETA.
[2020-07-04 20:31] LABS: Anion Gap 20.7 (5-19); Blood Urea Nitrogen 25 mg/dL (8-23); Calcium 9.1 mg/dL (8.5-10.5); Carbon Dioxide 19 mmol/L (22-29); Chloride 93 mmol/L (98-107); Glomerular Filtration Rate 67.8 mL/min (90-130); Glucose 167 mg/dL (65-115); Osmolality Calculated 274 mOsm/kg (285-295); Potassium 4.7 mmol/L (3.5-5.1); Sodium 128 mmol/L (136-145)
[2020-07-06 15:23] LABS: Adenovirus Not Detected (Not Detected); Human Metapneumovirus Not Detected (Not Detected); Human Parainflu Virus 1 Not Detected (Not Detected); Human Parainflu Virus 2 Not Detected (Not Detected); Human Parainflu Virus 3 Not Detected (Not Detected); Human Rsv A Not Detected (Not Detected); Influenza A Not Detected (Not Detected); Influenza B Not Detected (Not Detected); Rhinovirus/Enterovirus Not Detected (Not Detected)
[2020-07-07 01:48] LABS: Glucose-6-Phosphate Dehydrogen 19.3 U/g Hgb (7.0-20.5)
== END 2020-07-04 19:41 | disposition short-term general hospital (02) | DRG 177 ==
LOC: ER 14:48 → MEDSURG 17:26 → ICU 07-03 13:43
PROVIDERS: Internal Medicine Critical Care Medicine; Student in an Organized Health Care Education/Training Program; Admitting Provider Internal Medicine; Emergency Provider Family Medicine; PCP Family Medicine; Visit Provider Family Medicine
DX: B59 Pneumocystosis (principal); J96.01 Acute respiratory failure with hypoxia; B44.9 Aspergillosis, unspecified; E87.1 Hypo-osmolality and hyponatremia; J43.9 Emphysema, unspecified; Z90.2 Acquired absence of lung [part of]; Z87.891 Personal history of nicotine dependence; M05.9 Rheumatoid arthritis with rheumatoid factor, unspecified; J84.10 Pulmonary fibrosis, unspecified; R91.8 Other nonspecific abnormal finding of lung field; Z89.421 Acquired absence of other right toe(s); I25.10 Atherosclerotic heart disease of native coronary artery without angina pectoris; Z95.5 Presence of coronary angioplasty implant and graft; G56.01 Carpal tunnel syndrome, right upper limb; E11.9 Type 2 diabetes mellitus without complications; E87.5 Hyperkalemia; M79.10 Myalgia, unspecified site; W18.30XA Fall on same level, unspecified, initial encounter; Y92.230 Patient room in hospital as the place of occurrence of the external cause; Z99.81 Dependence on supplemental oxygen; Z86.16 Personal history of COVID-19; I77.6 Arteritis, unspecified
CPT/HCPCS: 36415; 36416; 36600; 51702; 71045; 71250; 80048; 80053; 81001; 82085; 82550; 82803; 82955; 82962; 83036; 83516; 83605; 83615; 83735; 83880; 83935; 84100; 84145; 84156; 84300; 85025; 86021; 86140; 86403; 86480; 86704; 86803; 87040; 87086; 87340; 87426; 87449; 87641; 87806; 93005; 94640; 94664; 96365; 96367; 96372; 96375; 99285; J1644; J1815; J1940; J2930; J3465; J3490; J7050; J7512

== ENCOUNTER 2020-09-12 16:51 | Inpatient (IN) | payer OTHER, SELFPAY ==
[2020-09-12] VITALS (12 sets, daily range): BP systolic 103–122; BP diastolic 75–85; PULSE 86–103; RESP 18–28; TEMP 36.8–36.9; O2SAT 86–96; BMI 22.5
--- NOTE | 2020-09-12 17:05 | ED_ITS ---
Documented by User: Shailesh NielsenDO 09/13/20 14:43 HPI - SOB/Dyspnea General: Chief Complaint: Shortness of Breath/Dyspnea Stated Complaint: SOB Time Seen by Provider: 09/12/20 16:51 History of Present Illness: HPI Narrative: 65-year-old male presents emergency room complaining of shortness of breath. Patient is rather complicated history he has a history of pulmonary fibrosis. Not completely sure if he has alpha-1 antitrypsin deficiency. However his brother suddenly of rapid progression of pulmonary fibrosis and then was complicated by COVID-19 infection. Now this patient has been rapidly declining with worsening pulmonary fibrosis although he does not yet meet the criteria for a lung transplant. He recently was laced in a [facility] for rehab he seemed to have gotten somewhat better at least by objective standards and he was discharged home. He states he personally did not feel like he was well enough to go home. He lives at home alone. He is found that when he is at rest at 4 L the sats normally and states that when he starts ambulating even to do minor tasks within the home he gets profoundly short of breath. Patient states at times at home when he pushes hard enough he will start to get chest discomfort. Last night evidently his oxygen concentrator battery he woke up without oxygen. MD elicited complaint: shortness of breath and cough Pertinent past history: other (Pulmonary fibrosis) Onset (ago): day(s) Context: recent illness Timing: constant Severity: moderate Exacerbating factors: exertion and coughing Relieving factors: oxygen and rest Known history of: other (Interstitial pulmonary fibrosis) Associated symptoms: Reports chest pain and cough; Deny abdominal pain, chest congestion, diaphoresis, dizziness, extremity pain, fever(s), hemoptysis, lightheadedness, myalgias, nausea, orthopnea, palpitations, paresthesias, polydipsia, polyuria, rash, sense of impending doom, syncope or vomiting Treatment prior to arrival: oxygen Review of Systems Const: Denies: fever(s) or diaphoresis ENMT: Denies: throat pain, ear or mastoid pain, nasal discharge or nasal c ongestion Card: Reports: chest pain; Denies: palpitations, lightheadedness, syncope or orthopnea Resp: Denies: hemoptysis or chest congestion GI: Denies: abdominal pain, nausea or vomiting : Denies: flank pain, dysuria, urinary frequency or urinary urgency Musc: Denies: extremity pain Skin/Breast: Denies: rash or pruritus Neuro: Denies: dizziness Endo: Denies: polyuria or polydipsia PFSH ED PFSH: Medical History (Updated 09/12/20 @ 21:04 by Jesus Huynh MD) Abnormal stress test 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 Aspergillosis COPD (chronic obstructive pulmonary disease) Coronary artery disease Cubital tunnel syndrome on right Diabetes Diabetes Emphysema of lung High risk medication use Joint pain P-ANCA titer positive Pneumocystis jiroveci pneumonia Pulmonary nodule Surgical absence of teeth Tobacco abuse Surgical History H/O neck surgery H/O: vasectomy History of ankle surgery History of dental surgery History of facial surgery History of lung biopsy S/P lobectomy of lung Family History Father Cancer Hypertension Mother Diabetes Brother Diabetes Sister Diabetes Father Cancer Prostate Social History Smoking and tobacco status: former smoker Quit status (tobacco): has quit using tobacco Year quit tobacco: 2020 - 2PPD x 40 Years Second hand smoke exposure: No Alcohol intake: current Alcohol intake frequency: holidays/special occasions only Lives independently: Yes Household members: none Housing: House Marital status: Number of children: 3 Number of grandchildren: 4 Highest education level completed: High School Graduate service: No Current occupational status: retired and disabled Pets and animals: Yes 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 History of recent travel: No Leisure activites: hunting and fishing Current gender identity: Male Dian/Rastafarian: Sabianism Physical Exam Const: COMMON NORMALS: no acute distress GENERAL APPEARANCE: cooperative and comfortable ORIENTATION/CONSCIOUSNESS: Yes awake, Yes oriented to person, Yes oriented to place and Yes oriented to time HENMT: COMMON NORMALS: normocephalic, atraumatic and hearing grossly normal bilaterally HEAD & SCALP: normocephalic and atraumatic Neck/C-Spine: COMMON NORMALS: no JVD Resp: AUSCULTATION: crackles and wheezes Cardio: COMMON NORMALS: no JVD, regular rhythm and No murmurs present (Cardio) RATE: tachycardic RHYTHM: regular rhythm GI: COMMON NORMALS: Soft to palpation and No hepatosplenomegaly present AUSCULTATION: Yes normoactive bowel sounds PALPATION: Yes Soft to palpation, No Tenderness to palpation present (GI), No Guarding due to palpation present (GI) and Yes No hepatosplenomegaly present Extremity: COMMON NORMALS: normal to inspection, capillary refill normal, no clubbing, cyanosis or edema, no calf tenderness and no pedal edema Neuro: SENSORIUM/ORIENTATION: Yes oriented to person, Yes oriented to place and Yes oriented to time Skin: COMMON NORMALS: no rashes or lesions noted GENERAL SKIN EXAM: no rashes or lesions noted Course Vital Signs: Vital signs: Vital Signs Temperature 97.7 F 09/13/20 12:00 Pulse Rate 87 09/13/20 14:00 Respiratory Rate 18 09/13/20 14:00 Blood Pressure 96/71 09/13/20 14:00 Pulse Oximetry 86 L 09/13/20 14:00 MDM - SOB/Dyspnea MDM Narrative: Medical decision making narrative: Initially seen patient care turned over to Dr. Saleh at change shift see his notes for final diagnosis and disposition laboratory studies and imaging are pending Lab Data: Labs: Lab Results 09/12/20 09/12/20 09/12/20 Range/Units 17:10 17:54 17:54 WBC 12.2 H (4.0-10.0) 10^3/ uL RBC 4.18 (4.1-5.3) 10^6/u L Hgb 11.7 (11.7-16.6) g/dL Hct 36.3 L (42.0-52.0) % MCV 86.8 (80-94) fL MCH 28.0 (28.0-34.0) pg MCHC 32.2 (30.0-36.0) g/dL RDW 18.1 H (12.1-15.1) % Plt Count 267 (130-400) 10^3/c mm MPV 8.7 (7.4-10.4) fL Neut % (Auto) 61.4 % Lymph % (Auto) 30.3 % Carroll % (Auto) 5.4 % Eos % (Auto) 0.2 % Baso % (Auto) 0.5 % Neut # (Auto) 7.47 (1.8-7.7) 10^3/u L Lymph # (Auto) 3.7 (0.8-4.8) 10^3/u L [place] # (Auto) 0.7 (0.2-0.9) 10^3/u L Eos # (Auto) 0.0 (0.0-0.8) 10^3/u L Baso # (Auto) 0.1 (0.0-0.1) 10^3/u L Nucleated RBC % (a uto) 0 % Nucleated RBCs # 0.0 /100WBC Specimen Type Arterial Sample Site Radial, right ABG pH 7.47 H (7.35-7.45) ABG pCO2 38.8 (35-45) mmHg ABG pO2 84.8 (80.0-100.0) mmH g ABG HCO3 27.9 H (22-26) mmol/L ABG O2 Saturation 95.5 ABG Base Excess 3.9 H (-2.0-2.0) mmol/ L Erickson Test Pos A-a O2 Gradient 16.1 H (5-10) mmHg Hematocrit 36.0 L (42-52) % Hgb O2 Saturation 94.5 L (95-100) % Carboxyhemoglobin 0.0 L (0.4-20.1) %THgb Methemoglobin 1.0 (0.4-1.5) % Total Hemoglobin 11.8 L (14-18) g/dL Sodium 137.0 136 (131-143) mmol/L Potassium 4.4 4.9 (3.5-5.0) mmol/L Glucose 124.0 H 117 H (70-115) mg/dL Ionized Calcium 1.2 (1.1-1.4) mmol/L O2 Delivery Device Nc O2 Liters/Min 4.0 % FiO2 36.0 % Subassembler ID Amh Chloride 100 (98-107) mmol/L Carbon Dioxide 27 (22-29) mmol/L Anion Gap 13.9 (5-19) BUN 14 (8-23) mg/dL Creatinine 0.5 L (0.7-1.2) mg/dL GFR Calculation 167.9 H (90-130) mL/min Calculated Osmolal ity 284 L (285-295) mOsm/k g Calcium 8.7 (8.5-10.5) mg/dL Total Bilirubin 0.4 (0.15-1.2) mg/dL AST 14 (0-40) U/L ALT 16 (0-41) U/L Alkaline Phosphata se 85 (40-130) IU/L Creatine Kinase 35 L (39-308) U/L Troponin T Baselin e (0-15) ng/L Troponin T 120 Min [place] (0-15) ng/L Delta Troponin T (0-10) ABS# C-Reactive Protein (0.0-4.9) mg/L NT-Pro-B Natriuret Pep (0-125) pg/mL Total Protein 6.0 L (6.6-8.7) g/dL Albumin 3.4 L (3.5-5.2) g/dL Globulin 2.6 (1.3-4.6) g/dL Procalcitonin (0-0.5) ng/mL Urine Color (Yellow) Urine Appearance (CLEAR) Urine pH (5-7) Ur Specific Gravit y (1.005-1.030) Urine Protein (Negative) Urine Glucose (UA) (Normal) Urine Ketones (Negative) Urine Blood (Negative) Urine Nitrate (Negative) Urine Bilirubin (Negative) Prot Sulfosalicyli c Acd (Negative) Urine Urobilinogen (Negative) mg/dL Ur Leukocyte Renee ase (Negative) Urine RBC (0-2) /hpf Urine WBC (0-5) /hpf Ur Squamous Epith Cells (0-5) /hpf Amorphous Sediment Urine Bacteria (NONE) /hpf Hyaline Casts /lpf Urine Mucus /hpf 09/12/20 09/12/20 09/12/20 Range/Units 17:54 20:00 20:06 WBC (4.0-10.0) 10^3/ uL RBC (4.1-5.3) 10^6/u L Hgb (11.7-16.6) g/dL Hct (42.0-52.0) % MCV (80-94) fL MCH (28.0-34.0) pg MCHC (30.0-36.0) g/dL RDW (12.1-15.1) % Plt Count (130-400) 10^3/c mm MPV (7.4-10.4) fL Neut % (Auto) % Lymph % (Auto) % Carroll % (Auto) % Eos % (Auto) % Baso % (Auto) % Neut # (Auto) (1.8-7.7) 10^3/u L Lymph # (Auto) (0.8-4.8) 10^3/u L [place] # (Auto) (0.2-0.9) 10^3/u L Eos # (Auto) (0.0-0.8) 10^3/u L Baso # (Auto) (0.0-0.1) 10^3/u L Nucleated RBC % (a uto) % Nucleated RBCs # /100WBC Specimen Type Sample Site ABG pH (7.35-7.45) ABG pCO2 (35-45) mmHg ABG pO2 (80.0-100.0) mmH g ABG HCO3 (22-26) mmol/L ABG O2 Saturation ABG Base Excess (-2.0-2.0) mmol/ L Erickson Test A-a O2 Gradient (5-10) mmHg Hematocrit (42-52) % Hgb O2 Saturation (95-100) % Carboxyhemoglobin (0.4-20.1) %THgb Methemoglobin (0.4-1.5) % Total Hemoglobin (14-18) g/dL Sodium (131-143) mmol/L Potassium (3.5-5.0) mmol/L Glucose (70-115) mg/dL Ionized Calcium (1.1-1.4) mmol/L O2 Delivery Device O2 Liters/Min % FiO2 % Subassembler ID Chloride (98-107) mmol/L Carbon Dioxide (22-29) mmol/L Anion Gap (5-19) BUN (8-23) mg/dL Creatinine (0.7-1.2) mg/dL GFR Calculation (90-130) mL/min Calculated Osmolal ity (285-295) mOsm/k g Calcium (8.5-10.5) mg/dL Total Bilirubin (0.15-1.2) mg/dL AST (0-40) U/L ALT (0-41) U/L Alkaline Phosphata se (40-130) IU/L Creatine Kinase (39-308) U/L Troponin T Baselin e 18 H (0-15) ng/L Troponin T 120 Min [place] 18.28 H (0-15) ng/L Delta Troponin T 0.28 (0-10) ABS# C-Reactive Protein (0.0-4.9) mg/L NT-Pro-B Natriuret Pep (0-125) pg/mL Total Protein (6.6-8.7) g/dL Albumin (3.5-5.2) g/dL Globulin (1.3-4.6) g/dL Procalcitonin (0-0.5) ng/mL Urine Color Yellow (Yellow) Urine Appearance Clear (CLEAR) Urine pH 8 H (5-7) Ur Specific Gravit y 1.010 (1.005-1.030) Urine Protein Neg (Negative) Urine Glucose (UA) Norm (Normal) Urine Ketones Negative (Negative) Urine Blood 3+ H (Negative) Urine Nitrate Negative (Negative) Urine Bilirubin Neg (Negative) Prot Sulfosalicyli c Acd Negative (Negative) Urine Urobilinogen Norm (Negative) mg/dL Ur Leukocyte Renee ase Negative (Negative) Urine RBC 5-10 H (0-2) /hpf Urine WBC 0-4 H (0-5) /hpf Ur Squamous Epith Cells 0-4 H (0-5) /hpf Amorphous Sediment Not Reportable Urine Bacteria Trace (NONE) /hpf Hyaline Casts 0-4 H /lpf Urine Mucus 1+ /hpf 09/12/20 Range/Units 20:06 WBC (4.0-10.0) 10^3/ uL RBC (4.1-5.3) 10^6/u L Hgb (11.7-16.6) g/dL Hct (42.0-52.0) % MCV (80-94) fL MCH (28.0-34.0) pg MCHC (30.0-36.0) g/dL RDW (12.1-15.1) % Plt Count (130-400) 10^3/c mm MPV (7.4-10.4) fL Neut % (Auto) % Lymph % (Auto) % Carroll % (Auto) % Eos % (Auto) % Baso % (Auto) % Neut # (Auto) (1.8-7.7) 10^3/u L Lymph # (Auto) (0.8-4.8) 10^3/u L [place] # (Auto) (0.2-0.9) 10^3/u L Eos # (Auto) (0.0-0.8) 10^3/u L Baso # (Auto) (0.0-0.1) 10^3/u L Nucleated RBC % (a uto) % Nucleated RBCs # /100WBC Specimen Type Sample Site ABG pH (7.35-7.45) ABG pCO2 (35-45) mmHg ABG pO2 (80.0-100.0) mmH g ABG HCO3 (22-26) mmol/L ABG O2 Saturation ABG Base Excess (-2.0-2.0) mmol/ L Erickson Test A-a O2 Gradient (5-10) mmHg Hematocrit (42-52) % Hgb O2 Saturation (95-100) % Carboxyhemoglobin (0.4-20.1) %THgb Methemoglobin (0.4-1.5) % Total Hemoglobin (14-18) g/dL Sodium (131-143) mmol/L Potassium (3.5-5.0) mmol/L Glucose (70-115) mg/dL Ionized Calcium (1.1-1.4) mmol/L O2 Delivery Device O2 Liters/Min % FiO2 % Subassembler ID Chloride (98-107) mmol/L Carbon Dioxide (22-29) mmol/L Anion Gap (5-19) BUN (8-23) mg/dL Creatinine (0.7-1.2) mg/dL GFR Calculation (90-130) mL/min Calculated Osmolal ity (285-295) mOsm/k g Calcium (8.5-10.5) mg/dL Total Bilirubin (0.15-1.2) mg/dL AST (0-40) U/L ALT (0-41) U/L Alkaline Phosphata se (40-130) IU/L Creatine Kinase (39-308) U/L Troponin T Baselin e (0-15) ng/L Troponin T 120 Min [place] (0-15) ng/L Delta Troponin T (0-10) ABS# C-Reactive Protein 35.8 H (0.0-4.9) mg/L NT-Pro-B Natriuret Pep 246 H (0-125) pg/mL Total Protein (6.6-8.7) g/dL Albumin (3.5-5.2) g/dL Globulin (1.3-4.6) g/dL Procalcitonin 0.06 (0-0.5) ng/mL Urine Color (Yellow) Urine Appearance (CLEAR) Urine pH (5-7) Ur Specific Gravit y (1.005-1.030) Urine Protein (Negative) Urine Glucose (UA) (Normal) Urine Ketones (Negative) Urine Blood (Negative) Urine Nitrate (Negative) Urine Bilirubin (Negative) Prot Sulfosalicyli c Acd (Negative) Urine Urobilinogen (Negative) mg/dL Ur Leukocyte Renee ase (Negative) Urine RBC (0-2) /hpf Urine WBC (0-5) /hpf Ur Squamous Epith Cells (0-5) /hpf Amorphous Sediment Urine Bacteria (NONE) /hpf Hyaline Casts /lpf Urine Mucus /hpf Discharge Plan Discharge Patient Disposition: Admitted As Inpatient Admit Provider: Jesus Huynh Clinical Impression: Pulmonary embolism Community acquired pneumonia Qualifiers: Laterality: right Lung location: lower lobe of lung Qualified Code(s): J18.9 - Pneumonia, unspecified organism Condition: Stable Coding Level of Care Code ED Clinic Assistant for Chg Fwd Exam Comprehensive Documented by User: Pal Saleh MD 09/12/20 20:07 HPI - SOB/Dyspnea General: Chief Complaint: Shortness of Breath/Dyspnea Stated Complaint: SOB Time Seen by Provider: 09/12/20 16:51 PFSH ED PFSH: Medical History (Updated 09/12/20 @ 21:04 by Jesus Huynh MD) Abnormal stress test 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 Aspergillosis COPD (chronic obstructive pulmonary disease) Coronary artery disease Cubital tunnel syndrome on right Diabetes Diabetes Emphysema of lung High risk medication use Joint pain P-ANCA titer positive Pneumocystis jiroveci pneumonia Pulmonary nodule Surgical absence of teeth Tobacco abuse Surgical History H/O neck surgery H/O: vasectomy History of ankle surgery History of dental surgery History of facial surgery History of lung biopsy S/P lobectomy of lung Family History Father Cancer Hypertension Mother Diabetes Brother Diabetes Sister Diabetes Father Cancer Prostate Social History Smoking and tobacco status: former smoker Quit status (tobacco): has quit using tobacco Year quit tobacco: 2020 - 2PPD x 40 Years Second hand smoke exposure: No Alcohol intake: current Alcohol intake frequency: holidays/special occasions only Lives independently: Yes Household members: none Housing: House Marital status: Number of children: 3 Number of grandchildren: 4 Highest education level completed: High School Graduate service: No Current occupational status: retired and disabled Pets and animals: Yes 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 History of recent travel: No Leisure activites: hunting and fishing Current gender identity: Male Dian/Rastafarian: Sabianism Course Vital Signs: Vital signs: Vital Signs Temperature 97.7 F 09/13/20 12:00 Pulse Rate 87 09/13/20 14:00 Respiratory Rate 18 09/13/20 14:00 Blood Pressure 96/71 09/13/20 14:00 Pulse Oximetry 86 L 09/13/20 14:00 MDM - SOB/Dyspnea MDM Narrative: Medical decision making narrative: Gregg presents for shortness of breath CT does show pneumonia along with a pulmonary embolism. Will start patient on IV antibiotics along with Lovenox and spoke to hospitalist and will admit Lab Data: Labs: Lab Results 09/12/20 09/12/20 09/12/20 Range/Units 17:10 17:54 17:54 WBC 12.2 H (4.0-10.0) 10^3/ uL RBC 4.18 (4.1-5.3) 10^6/u L Hgb 11.7 (11.7-16.6) g/dL Hct 36.3 L (42.0-52.0) % MCV 86.8 (80-94) fL MCH 28.0 (28.0-34.0) pg MCHC 32.2 (30.0-36.0) g/dL RDW 18.1 H (12.1-15.1) % Plt Count 267 (130-400) 10^3/c mm MPV 8.7 (7.4-10.4) fL Neut % (Auto) 61.4 % Lymph % (Auto) 30.3 % [place] % (Auto) 5.4 % Eos % (Auto) 0.2 % Baso % (Auto) 0.5 % Neut # (Auto) 7.47 (1.8-7.7) 10^3/u L Lymph # (Auto) 3.7 (0.8-4.8) 10^3/u L [place] # (Auto) 0.7 (0.2-0.9) 10^3/u L Eos # (Auto) 0.0 (0.0-0.8) 10^3/u L Baso # (Auto) 0.1 (0.0-0.1) 10^3/u L Nucleated RBC % (a uto) 0 % Nucleated RBCs # 0.0 /100WBC Specimen Type Arterial Sample Site Radial, right ABG pH 7.47 H (7.35-7.45) ABG pCO2 38.8 (35-45) mmHg ABG pO2 84.8 (80.0-100.0) mmH g ABG HCO3 27.9 H (22-26) mmol/L ABG O2 Saturation 95.5 ABG Base Excess 3.9 H (-2.0-2.0) mmol/ L Erickson Test Pos A-a O2 Gradient 16.1 H (5-10) mmHg Hematocrit 36.0 L (42-52) % Hgb O2 Saturation 94.5 L (95-100) % Carboxyhemoglobin 0.0 L (0.4-20.1) %THgb Methemoglobin 1.0 (0.4-1.5) % Total Hemoglobin 11.8 L (14-18) g/dL Sodium 137.0 136 (131-143) mmol/L Potassium 4.4 4.9 (3.5-5.0) mmol/L Glucose 124.0 H 117 H (70-115) mg/dL Ionized Calcium 1.2 (1.1-1.4) mmol/L O2 Delivery Device Nc O2 Liters/Min 4.0 % FiO2 36.0 % Subassembler ID Amh Chloride 100 (98-107) mmol/L Carbon Dioxide 27 (22-29) mmol/L Anion Gap 13.9 (5-19) BUN 14 (8-23) mg/dL Creatinine 0.5 L (0.7-1.2) mg/dL GFR Calculation 167.9 H (90-130) mL/min Calculated Osmolal ity 284 L (285-295) mOsm/k g Calcium 8.7 (8.5-10.5) mg/dL Total Bilirubin 0.4 (0.15-1.2) mg/dL AST 14 (0-40) U/L ALT 16 (0-41) U/L Alkaline Phosphata se 85 (40-130) IU/L Creatine Kinase 35 L (39-308) U/L Troponin T Baselin e (0-15) ng/L Troponin T 120 Min [place] (0-15) ng/L Delta Troponin T (0-10) ABS# C-Reactive Protein (0.0-4.9) mg/L NT-Pro-B Natriuret Pep (0-125) pg/mL Total Protein 6.0 L (6.6-8.7) g/dL Albumin 3.4 L (3.5-5.2) g/dL Globulin 2.6 (1.3-4.6) g/dL Procalcitonin (0-0.5) ng/mL Urine Color (Yellow) Urine Appearance (CLEAR) Urine pH (5-7) Ur Specific Gravit y (1.005-1.030) Urine Protein (Negative) Urine Glucose (UA) (Normal) Urine Ketones (Negative) Urine Blood (Negative) Urine Nitrate (Negative) Urine Bilirubin (Negative) Prot Sulfosalicyli c Acd (Negative) Urine Urobilinogen (Negative) mg/dL Ur Leukocyte [place]ne[place] ase (Negative) Urine RBC (0-2) /hpf Urine WBC (0-5) /hpf Ur Squamous Epith Cells (0-5) /hpf Amorphous Sediment Urine Bacteria (NONE) /hpf Hyaline Casts /lpf Urine Mucus /hpf 09/12/20 09/12/20 09/12/20 Range/Units 17:54 20:00 20:06 WBC (4.0-10.0) 10^3/ uL RBC (4.1-5.3) 10^6/u L Hgb (11.7-16.6) g/dL Hct (42.0-52.0) % MCV (80-94) fL MCH (28.0-34.0) pg MCHC (30.0-36.0) g/dL RDW (12.1-15.1) % Plt Count (130-400) 10^3/c mm MPV (7.4-10.4) fL Neut % (Auto) % Lymph % (Auto) % [place] % (Auto) % Eos % (Auto) % Baso % (Auto) % Neut # (Auto) (1.8-7.7) 10^3/u L Lymph # (Auto) (0.8-4.8) 10^3/u L [place] # (Auto) (0.2-0.9) 10^3/u L Eos # (Auto) (0.0-0.8) 10^3/u L Baso # (Auto) (0.0-0.1) 10^3/u L Nucleated RBC % (a uto) % Nucleated RBCs # /100WBC Specimen Type Sample Site ABG pH (7.35-7.45) ABG pCO2 (35-45) mmHg ABG pO2 (80.0-100.0) mmH g ABG HCO3 (22-26) mmol/L ABG O2 Saturation ABG Base Excess (-2.0-2.0) mmol/ L Erickson Test A-a O2 Gradient (5-10) mmHg Hematocrit (42-52) % Hgb O2 Saturation (95-100) % Carboxyhemoglobin (0.4-20.1) %THgb Methemoglobin (0.4-1.5) % Total Hemoglobin (14-18) g/dL Sodium (131-143) mmol/L Potassium (3.5-5.0) mmol/L Glucose (70-115) mg/dL Ionized Calcium (1.1-1.4) mmol/L O2 Delivery Device O2 Liters/Min % FiO2 % Subassembler ID Chloride (98-107) mmol/L Carbon Dioxide (22-29) mmol/L Anion Gap (5-19) BUN (8-23) mg/dL Creatinine (0.7-1.2) mg/dL GFR Calculation (90-130) mL/min Calculated Osmolal ity (285-295) mOsm/k g Calcium (8.5-10.5) mg/dL Total Bilirubin (0.15-1.2) mg/dL AST (0-40) U/L ALT (0-41) U/L Alkaline Phosphata se (40-130) IU/L Creatine Kinase (39-308) U/L Troponin T Baselin e 18 H (0-15) ng/L Troponin T 120 Min [place] 18.28 H (0-15) ng/L Delta Troponin T 0.28 (0-10) ABS# C-Reactive Protein (0.0-4.9) mg/L NT-Pro-B Natriuret Pep (0-125) pg/mL Total Protein (6.6-8.7) g/dL Albumin (3.5-5.2) g/dL Globulin (1.3-4.6) g/dL Procalcitonin (0-0.5) ng/mL Urine Color Yellow (Yellow) Urine Appearance Clear (CLEAR) Urine pH 8 H (5-7) Ur Specific Gravit y 1.010 (1.005-1.030) Urine Protein Neg (Negative) Urine Glucose (UA) Norm (Normal) Urine Ketones Negative (Negative) Urine Blood 3+ H (Negative) Urine Nitrate Negative (Negative) Urine Bilirubin Neg (Negative) Prot Sulfosalicyli c Acd Negative (Negative) Urine Urobilinogen Norm (Negative) mg/dL Ur Leukocyte Renee ase Negative (Negative) Urine RBC 5-10 H (0-2) /hpf Urine WBC 0-4 H (0-5) /hpf Ur Squamous Epith Cells 0-4 H (0-5) /hpf Amorphous Sediment Not Reportable Urine Bacteria Trace (NONE) /hpf Hyaline Casts 0-4 H /lpf Urine Mucus 1+ /hpf 09/12/20 Range/Units 20:06 WBC (4.0-10.0) 10^3/ uL RBC (4.1-5.3) 10^6/u L Hgb (11.7-16.6) g/dL Hct (42.0-52.0) % MCV (80-94) fL MCH (28.0-34.0) pg MCHC (30.0-36.0) g/dL RDW (12.1-15.1) % Plt Count (130-400) 10^3/c mm MPV (7.4-10.4) fL Neut % (Auto) % Lymph % (Auto) % [place] % (Auto) % Eos % (Auto) % Baso % (Auto) % Neut # (Auto) (1.8-7.7) 10^3/u L Lymph # (Auto) (0.8-4.8) 10^3/u L [place] # (Auto) (0.2-0.9) 10^3/u L Eos # (Auto) (0.0-0.8) 10^3/u L Baso # (Auto) (0.0-0.1) 10^3/u L Nucleated RBC % (a uto) % Nucleated RBCs # /100WBC Specimen Type Sample Site ABG pH (7.35-7.45) ABG pCO2 (35-45) mmHg ABG pO2 (80.0-100.0) mmH g ABG HCO3 (22-26) mmol/L ABG O2 Saturation ABG Base Excess (-2.0-2.0) mmol/ L Erickson Test A-a O2 Gradient (5-10) mmHg Hematocrit (42-52) % Hgb O2 Saturation (95-100) % Carboxyhemoglobin (0.4-20.1) %THgb Methemoglobin (0.4-1.5) % Total Hemoglobin (14-18) g/dL Sodium (131-143) mmol/L Potassium (3.5-5.0) mmol/L Glucose (70-115) mg/dL Ionized Calcium (1.1-1.4) mmol/L O2 Delivery Device O2 Liters/Min % FiO2 % Subassembler ID Chloride (98-107) mmol/L Carbon Dioxide (22-29) mmol/L Anion Gap (5-19) BUN (8-23) mg/dL Creatinine (0.7-1.2) mg/dL GFR Calculation (90-130) mL/min Calculated Osmolal ity (285-295) mOsm/k g Calcium (8.5-10.5) mg/dL Total Bilirubin (0.15-1.2) mg/dL AST (0-40) U/L ALT (0-41) U/L Alkaline Phosphata se (40-130) IU/L Creatine Kinase (39-308) U/L Troponin T Baselin e (0-15) ng/L Troponin T 120 Min [place] (0-15) ng/L Delta Troponin T (0-10) ABS# C-Reactive Protein 35.8 H (0.0-4.9) mg/L NT-Pro-B Natriuret Pep 246 H (0-125) pg/mL Total Protein (6.6-8.7) g/dL Albumin (3.5-5.2) g/dL Globulin (1.3-4.6) g/dL Procalcitonin 0.06 (0-0.5) ng/mL Urine Color (Yellow) Urine Appearance (CLEAR) Urine pH (5-7) Ur Specific Gravit y (1.005-1.030) Urine Protein (Negative) Urine Glucose (UA) (Normal) Urine Ketones (Negative) Urine Blood (Negative) Urine Nitrate (Negative) Urine Bilirubin (Negative) Prot Sulfosalicyli c Acd (Negative) Urine Urobilinogen (Negative) mg/dL Ur Leukocyte Renee ase (Negative) Urine RBC (0-2) /hpf Urine WBC (0-5) /hpf Ur Squamous Epith Cells (0-5) /hpf Amorphous Sediment Urine Bacteria (NONE) /hpf Hyaline Casts /lpf Urine Mucus /hpf Imaging Data^: CT Chest: Attestation: I personally reviewed and interpreted this imaging study as follows: My impression: [address] [address] [address] Scan Report Signed Patient: Gregg Babcock Unit #: [id number] : 1955 Age/Sex: 65 / M ADM Date: 09/12/20 Loc: ER Room/Bed: Attending Dr: Ordering Provider/Ordering MD: Pal Saleh MD Date of Service: 09/12/20 Procedure(s): CT angio chest PE protcl [id number] Accession Number(s): [id number] Report Number: [id number] PROCEDURE INFORMATION: Exam: CTA Chest With Contrast Exam date and time: 09/12/2020 7:00 PM Age: 65 years old Clinical indication: Shortness of breath; Prior surgery; Surgery type: Stent, neck; Additional info: SOB x 2 days TECHNIQUE: Imaging protocol: Computed tomographic angiography of the chest with contrast. 3D rendering (Not supervised by radiologist): MIP and/or 3D reconstructed images were created by the technologist. Radiation optimization: All CT scans at this facility use at least one of these dose optimization techniques: automated exposure control; mA and/or kV adjustment per patient size (includes targeted exams where dose is matched to clinical indication); or iterative reconstruction. Contrast material: OMNI 350; Contrast volume: 80 ml; Contrast route: INTRAVENOUS (IV); COMPARISON: 1. CT angio chest PE protcl [id number] 11/20/2019 1:17 AM 2. CR (CHEST, ) 09/12/2020 5:28:44 PM RADIATION DOSE METRICS: Total DLP (mGy-cm): 508.23 FINDINGS: Pulmonary arteries: Occlusive and nonocclusive pulmonary emboli in the anterior and lateral segmental and subsegmental branches of the right lower lobe pulmonary artery. Aorta: Mild atherosclerotic changes in the visualized arteries. No evidence for aortic aneurysm or aortic dissection. Lungs: Stable changes consistent with a right upper lobectomy. Mixed paraseptal emphysematous and interstitial fibrotic changes in both lungs are stable. Ground-glass opacification in the mid and lower lungs that may represent pneumonitis versus versus atypical pneumonia versus the acute phase of interstitial lung disease. No pulmonary parenchymal nodules or masses. Cylindrical bronchiectasis in the mid and lower lungs. No pulmonary parenchymal nodules or masses. Pleural spaces: No pneumothorax. No pleural effusion. Calcified pleural plaques in the lower left hemithorax. Heart: Stable mild enlargement of the heart. Extensive atherosclerotic calcification in the coronary arteries. The RV/LV ratio is 0.84, which is normal. Mediastinal space: Small hiatal hernia. No mediastinal hematoma. No pneumomediastinum. Lymph nodes: No lymphadenopathy. Liver: The visualized liver is unremarkable. Gallbladder and bile ducts: The gallbladder is unremarkable. No dilatation of the visualized bile ducts. Pancreas: The visualized pancreas is unremarkable. No pancreatic ductal dilatation. Spleen: The visualized spleen is unremarkable. Adrenal glands: The visualized right and left adrenal glands are unremarkable. Kidneys and ureters: The visualized right and left kidneys are unremarkable. Bones/joints: Patient has had a previous cervical spine fusion. Multilevel degenerative changes of varying severity in the visualized spine. Soft tissues: No acute abnormality in the extrathoracic soft tissues. CT/CT angio chest PE protcl [id number] IMPRESSION: 1. Occlusive and nonocclusive pulmonary emboli in the anterior and lateral segmental and subsegmental branches of the right lower lobe pulmonary artery. 2. Ground-glass opacification in the mid and lower lungs that may represent pneumonitis versus versus atypical pneumonia versus the acute phase of interstitial lung disease. Recommend clinical correlation. Recommend followup chest imaging to insure resolution of these findings. 3. Incidental/nonacute findings are listed in the report. COMMENTS: THIS REPORT CONTAINS FINDINGS THAT MAY BE CRITICAL TO PATIENT CARE. The findings were verbally communicated via telephone conference with PAL Esquivel at 7:40 PM CDT on 09/12/2020. The findings were acknowledged and understood. Radiation Dose CTDIVOL = (mGy): DLP = 508.23 (mGy-cm) EKG Data^: EKG 1: Attestation: I personally reviewed and interpreted this EKG as follows: EKG Interpretation Date: 09/12/20 EKG interpretation time: 18:51 Interpretation: nsr hr [address] or t wave abnormalities qrs 87 qtc 350 Discharge Plan Discharge Patient Disposition: Admitted As Inpatient Admit Provider: Jesus Huynh Clinical Impression: Pulmonary embolism Community acquired pneumonia Qualifiers: Laterality: right Lung location: lower lobe of lung Qualified Code(s): J18.9 - Pneumonia, unspecified organism Condition: Stable Coding Level of Care Code ED Clinic Assistant for Chg Fwd Exam Comprehensive
--- NOTE | 2020-09-12 17:11 | ECG_ITS ---
[facility] Test Date: 2020-09-12 Pat Name: Gregg Babcock Department: Room: Gender: Male Hip Hop Performers: : 1955 Requested By: Shailesh Benitez Order Number: [id number] Jaelyn MD: Ric Rosa M.D. Measurements Intervals [place] Rate: 85 P: 44 [place]: 160 QRS: -31 QRSD: 84 T: 33 QT: 366 QTc: 438 Interpretive Statements SINUS RHYTHM LEFT AXIS DEVIATION [QRS AXIS < -30] Compared to ECG 07/04/2020 09:24:42 Sinus tachycardia no longer present T-wave abnormality still present Electronically Signed On 09-12-2020 18:55:23 CDT by Ric Rosa M.D. [email or web address] [facility].[employer]/store/NU/[id number] f
--- NOTE | 2020-09-12 17:11 | XRR_ITS ---
PROCEDURE INFORMATION: Exam: XR Chest Exam date and time: 09/12/2020 5:14 PM Age: 65 years old Clinical indication: Cough and shortness of breath; Prior surgery; Surgery type: Stent; Additional info: Dyspnea/cough TECHNIQUE: Imaging protocol: XR of the chest. Views: 1 view. COMPARISON: CR XR chest 1V portable [id number] 07/04/2020 4:54 AM FINDINGS: Lungs: Decreased inspiration. Patchy interstitial and alveolar opacities in the mid and lower lungs, increasing in the right lung. Findings are suspicious for worsening pneumonia. Pleural spaces: No pleural effusion. No pneumothorax. Heart/Mediastinum: The cardiac silhouette is mildly enlarged. Mediastinal contours are unremarkable. Bones/joints: Bones are diffusely osteopenic. Degenerative changes in the spine and shoulders. Stable changes consistent with a previous fusion in the visualized cervical spine. XR/XR chest 1V portable [id number] IMPRESSION: 1. Decreased inspiration. Patchy interstitial and alveolar opacities in the mid and lower lungs, increasing in the right lung. Findings are suspicious for worsening pneumonia. Recommend followup chest x-ray to ensure resolution. 2. Incidental/nonacute findings are listed in the report.
[2020-09-12 17:21] LABS: ABG PCO2 38.8 mmHg (35-45); ABG PH Result 7.47 (7.35-7.45); Alveolar-Arterial Oxygen Gradi 16.1 mmHg (5-10); Base Excess ABG 3.9 mmol/L (-2.0-2.0); Blood Gas Allen Test Pos; Blood Gas Operator Identificat AMH; Blood Gas Sample Site Radial, right; Blood Gas Sample Type Arterial; HCO3 ABG 27.9 mmol/L (22-26); HGB O2 Sat 94.5 % (95-100); Ionized Calcium Level - ABG 1.2 mmol/L (1.1-1.4); Oxygen Device NC; Oxygen Saturation ABG 95.5; PO2 ABG 84.8 mmHg (80.0-100.0); Potassium Level - ABG 4.4 mmol/L (3.5-5.0); Total Hemoglobin 11.8 g/dL (14-18)
[2020-09-12 17:59] LABS: Basophils # 0.1 10^3/uL (0.0-0.1); Basophils % 0.5 %; Eosinophils % 0.2 %; Hematocrit 36.3 % (42.0-52.0); Hemoglobin 11.7 g/dL (11.7-16.6); Lymphocytes # 3.7 10^3/uL (0.8-4.8); Lymphocytes % 30.3 %; Mean Corpuscular HGB Conc 32.2 g/dL (30.0-36.0); Mean Corpuscular Volume 86.8 fL (80-94); Mean Platelet Volume 8.7 fL (7.4-10.4); Monocytes # 0.7 10^3/uL (0.2-0.9); Monocytes % 5.4 %; Neutrophils # 7.47 10^3/uL (1.8-7.7); Neutrophils % 61.4 %; Nucleated Red Blood Cells % 0 %; Platelet Count 267 10^3/cmm (130-400); Red Blood Count 4.18 10^6/uL (4.1-5.3); Red Cell Distribution Width 18.1 % (12.1-15.1); White Blood Count 12.2 10^3/uL (4.0-10.0)
[2020-09-12 18:23] LABS: Alanine Aminotransferase 16 U/L (0-41); Albumin Level 3.4 g/dL (3.5-5.2); Alkaline Phosphatase 85 IU/L (40-130); Anion Gap 13.9 (5-19); Aspartate Amino Transferase 14 U/L (0-40); Blood Urea Nitrogen 14 mg/dL (8-23); Calcium 8.7 mg/dL (8.5-10.5); Carbon Dioxide 27 mmol/L (22-29); Chloride 100 mmol/L (98-107); Creatine Phosphokinase 35 U/L (39-308); Globulin 2.6 g/dL (1.3-4.6); Glomerular Filtration Rate 167.9 mL/min (90-130); Glucose 117 mg/dL (65-115); Osmolality Calculated 284 mOsm/kg (285-295); Potassium 4.9 mmol/L (3.5-5.1); Sodium 136 mmol/L (136-145); Total Bilirubin 0.4 mg/dL (0.15-1.2)
[2020-09-12 18:31] LABS: Troponin(5th) Baseline 18 ng/L (0-15)
--- NOTE | 2020-09-12 18:36 | PC.PHAR ---
PT STATES SINCE HE WAS RELEASED FROM [place] Friday09/06/20 THAT HE HAS BEEN TAKING CARE OF HIS OWN MEDICATIONS-PT [place] [facility]-PT STATES HE RAN OUT OF THE AM MEDS AND DIDNT BRING IN THOSE EMPTY PACKS-PT ALSO BROUGHT IN OLD BOTTLES OF HIS MEDS BUT STATES HE HASNT BEEN TAKING THOSE ONLY WHAT THE [facility] SENT HIM HOME WITH- Manuel from [facility] states they discharged the pt with CORLANOR FOR 5MG DAILY-pt brought in HIS PACKES OF MEDS THE [facility] SENT HIM WITH-PTS PACK HE BROUGHT IN HAS 5MG BID RX [id number] [facility]-EXT MED HISTORY SHOWS LAST FILLED ON 09/08/20 FOR 5MG DAILY-MANUEL FROM [place] VERIFIED THE MEDS THEY SENT HIM HOME WITH STATES SHE COULDNT PRINT IT OUT AND FAX BECAUSE WHEN HE WAS DISCHARGED IT SOMEHOW CANCELED THEM OUT-MEDS ENTERED ARE MEDS FROM WHAT [place] STATES THE PT WAS SENT HOME WITH- EXT MED HISTORY AND THE PTS MED HE BROUGHT IN
--- NOTE | 2020-09-12 18:58 | CTR_ITS ---
PROCEDURE INFORMATION: Exam: CTA Chest With Contrast Exam date and time: 09/12/2020 7:00 PM Age: 65 years old Clinical indication: Shortness of breath; Prior surgery; Surgery type: Stent, neck; Additional info: SOB x 2 days TECHNIQUE: Imaging protocol: Computed tomographic angiography of the chest with contrast. 3D rendering (Not supervised by radiologist): MIP and/or 3D reconstructed images were created by the technologist. Radiation optimization: All CT scans at this facility use at least one of these dose optimization techniques: automated exposure control; mA and/or kV adjustment per patient size (includes targeted exams where dose is matched to clinical indication); or iterative reconstruction. Contrast material: OMNI 350; Contrast volume: 80 ml; Contrast route: INTRAVENOUS (IV); COMPARISON: 1. CT angio chest PE protcl [id number] 11/20/2019 1:17 AM 2. CR (CHEST, ) 09/12/2020 5:28:44 PM RADIATION DOSE METRICS: Total DLP (mGy-cm): 508.23 FINDINGS: Pulmonary arteries: Occlusive and nonocclusive pulmonary emboli in the anterior and lateral segmental and subsegmental branches of the right lower lobe pulmonary artery. Aorta: Mild atherosclerotic changes in the visualized arteries. No evidence for aortic aneurysm or aortic dissection. Lungs: Stable changes consistent with a right upper lobectomy. Mixed paraseptal emphysematous and interstitial fibrotic changes in both lungs are stable. Ground-glass opacification in the mid and lower lungs that may represent pneumonitis versus versus atypical pneumonia versus the acute phase of interstitial lung disease. No pulmonary parenchymal nodules or masses. Cylindrical bronchiectasis in the mid and lower lungs. No pulmonary parenchymal nodules or masses. Pleural spaces: No pneumothorax. No pleural effusion. Calcified pleural plaques in the lower left hemithorax. Heart: Stable mild enlargement of the heart. Extensive atherosclerotic calcification in the coronary arteries. The RV/LV ratio is 0.84, which is normal. Mediastinal space: Small hiatal hernia. No mediastinal hematoma. No pneumomediastinum. Lymph nodes: No lymphadenopathy. Liver: The visualized liver is unremarkable. Gallbladder and bile ducts: The gallbladder is unremarkable. No dilatation of the visualized bile ducts. Pancreas: The visualized pancreas is unremarkable. No pancreatic ductal dilatation. Spleen: The visualized spleen is unremarkable. Adrenal glands: The visualized right and left adrenal glands are unremarkable. Kidneys and ureters: The visualized right and left kidneys are unremarkable. Bones/joints: Patient has had a previous cervical spine fusion. Multilevel degenerative changes of varying severity in the visualized spine. Soft tissues: No acute abnormality in the extrathoracic soft tissues. CT/CT angio chest PE protcl [id number] IMPRESSION: 1. Occlusive and nonocclusive pulmonary emboli in the anterior and lateral segmental and subsegmental branches of the right lower lobe pulmonary artery. 2. Ground-glass opacification in the mid and lower lungs that may represent pneumonitis versus versus atypical pneumonia versus the acute phase of interstitial lung disease. Recommend clinical correlation. Recommend followup chest imaging to insure resolution of these findings. 3. Incidental/nonacute findings are listed in the report. COMMENTS: THIS REPORT CONTAINS FINDINGS THAT MAY BE CRITICAL TO PATIENT CARE. The findings were verbally communicated via telephone conference with PAL Esquivel at 7:40 PM CDT on 09/12/2020. The findings were acknowledged and understood. Radiation Dose CTDIVOL = (mGy): DLP = 508.23 (mGy-cm)
--- NOTE | 2020-09-12 19:11 | ECG_ITS ---
[facility] Test Date: 2020-09-12 Pat Name: Gregg Babcock Department: Room: Gender: Male Campaign Management Specialist: : 1955 Requested By: Shailesh Benitez Order Number: [id number] Jaelyn MD: Ric Rosa M.D. Measurements Intervals [place] Rate: 82 P: 12 CT: 163 QRS: 94 QRSD: 87 T: 27 QT: 312 QTc: 364 Interpretive Statements SINUS RHYTHM BORDERLINE RIGHT AXIS DEVIATION [QRS AXIS > 90] NONSPECIFIC T-WAVE ABNORMALITY Compared to ECG 09/12/2020 17:03:54 Left-axis deviation no longer present T-wave abnormality still present Electronically Signed On 09-12-2020 19:12:17 CDT by Ric Rosa M.D. [id number]
[2020-09-12] MEDS: iohexol 350 mg/mL 100 mL Btl IV (19:12)
--- NOTE | 2020-09-12 19:16 | P.HP_ITS ---
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), interstitial lung disease, oxygen dependent uses 3 to 4 L of oxygen, coronary disease with stent placement in April, was admitted in June for management of hypoxic respiratory failure, underwent bronchoscopy which revealed PCP pneumonia, he was treated with voriconazole and Bactrim along high-dose steroids because of worsening hypoxia with concern of previous history of aspergilloma, he was transferred to [facility], his Covid PCR was negative he had an extensive rheumatological work-up.(Negative ABE positive rheumatoid factor 22, P ANCA 1:160) Patient is stating that at [facility] he received antimicrobial agents and was discharged to [facility] later on, he was discharged from [facility] on Friday, since then his health has been declining, he is describing his symptoms as extreme shortness of breath on mild activity despite being on oxygen, experiences chest discomfort when his oxygen level drops which improved as soon as O2 saturation rises above 90%, no recent nausea, vomiting, or productive cough. He has chronic dry cough, he has not noticed any fever at home. His chest pain is intermittent which he is describing as pressure-like sensation which would last for about few seconds. He is compliant with his aspirin and Plavix. Diagnostics in the ER revealed mild leukocytosis, he was saturating 90% on 5 L nasal cannula, ABG revealed compensated pH and PaO2 84% on 4 L nasal cannula, CTA chest ruled in for PE, [id number] 1. Occlusive and nonocclusive pulmonary emboli in the anterior and lateral segmental and subsegmental branches of the right lower lobe pulmonary artery. 2. Ground-glass opacification in the mid and lower lungs that may represent pneumonitis versus versus atypical pneumonia versus the acute phase of interstitial lung disease. Review of Systems Const: Reports: chills, body aches, change in appetite and fatigue Eyes: Reports: change in vision ENMT: Denies: throat pain Card: Reports: chest pain, pre-syncope and dyspnea on exertion; Denies: syncope or orthopnea Resp: Reports: dyspnea, non-productive cough and pain on inspiration GI: Denies: abdominal pain : Denies: flank pain Musc: Denies: neck pain Skin/Breast: Denies: rash Neuro: Denies: headache(s) Psych: Reports: anxiety Endo: Denies: polyuria Jamari/Lymph: Denies: easy bruising All/Imm: Denies: urticaria Medications/Allergies Home Medications Medication Instructions Recorded Confirmed Last Taken Type escitalopram oxalate 10 mg tablet 20 mg PO DAILY tab 03/14/20 09/12/20 07/01/20 History aspirin [Adult Aspirin Regimen] 81 mg PO DAILY 07/01/20 09/12/20 09/12/20 History clopidogrel 75 mg PO DAILY 07/01/20 09/12/20 07/01/20 History cyclobenzaprine 10 mg PO DAILY PRN 07/01/20 09/12/20 06/29/20 History albuterol sulfate [ProAir HFA] 2 puff INHALATION Q4H PRN 09/12/20 09/12/20 Unknown History atorvastatin 20 mg PO DAILY 09/12/20 09/12/20 Unknown History atovaquone 1,500 mg PO DAILY 09/12/20 09/12/20 09/12/20 History xvyhwdzhtf-xcfqqmcp-vhpdstgsvz 2 inh INHALATION BID 09/12/20 09/12/20 Unknown History [[facility]] buspirone 5 mg PO TID 09/12/20 09/12/20 09/12/20 09:00 History fluticasone propionate 2 spray INTRANASAL DAILY 09/12/20 09/12/20 Unknown History ivabradine [Corlanor] 5 mg PO DAILY 09/12/20 09/12/20 Unknown History loratadine 10 mg PO DAILY 09/12/20 09/12/20 Unknown History metoprolol tartrate 25 mg PO BID 09/12/20 09/12/20 09/12/20 09:00 History mirtazapine 15 mg PO BEDTIME 09/12/20 09/12/20 Unknown History nitroglycerin 0.4 mg sublingual 0.4 mg SUBLINGUAL Q5M PRN #25 tab 09/12/20 09/12/20 Unknown Rx tablet polyethylene glycol 3350 [ClearLax] 17 g PO DAILY PRN 09/12/20 09/12/20 Unknown History prednisone 10 mg PO DAILY 09/12/20 09/12/20 Unknown History prednisone 20 mg PO DAILY 09/12/20 09/12/20 Unknown History sennosides-docusate sodium 1 tab PO BID 09/12/20 09/12/20 09/12/20 09:00 History [Senexon-S] umeclidinium-vilanterol [Anoro 1 ea INHALATION DAILY 09/12/20 09/12/20 Unknown History Ellipta] Allergies Allergy/AdvReac Type Severity Reaction Status Date / Time acetaminophen [From [place]] Allergy ADR-Itching Verified 06/21/20 17:27 hydrocodone [From [place]] Allergy ADR-Itching Verified 06/21/20 17:27 insect venom Allergy ALGY-Difficulty Verified 06/15/20 18:25 Swallowing PFSH Acute PFSH: Medical History (Updated 09/12/20 @ 21:04 by Jesus Huynh MD) Abnormal stress test 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 Aspergillosis COPD (chronic obstructive pulmonary disease) Coronary artery disease Cubital tunnel syndrome on right Diabetes Diabetes Emphysema of lung High risk medication use Joint pain P-ANCA titer positive Pneumocystis jiroveci pneumonia Pulmonary nodule Surgical absence of teeth Tobacco abuse Surgical History H/O neck surgery H/O: vasectomy History of ankle surgery History of dental surgery History of facial surgery History of lung biopsy S/P lobectomy of lung Family History Father Cancer Hypertension Mother Diabetes Brother Diabetes Sister Diabetes Father Cancer Prostate Social History Smoking and tobacco status: former smoker Quit status (tobacco): has quit using tobacco Year quit tobacco: 2019 - 2PPD x 40 Years Second hand smoke exposure: No Alcohol intake: current Alcohol intake frequency: holidays/special occasions only Lives independently: Yes Household members: none Housing: House Marital status: Number of children: 3 Number of grandchildren: 4 Highest education level completed: High School Graduate service: No Current occupational status: retired and disabled Pets and animals: Yes 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 History of recent travel: No Leisure activites: hunting and fishing Current gender identity: Male Dian/Synagogue: Catholic Vitals/I&O/Wt Last Vital Signs Temp 98.4 F 09/12/20 17:00 Pulse 87 09/12/20 18:52 Resp 26 H 09/12/20 18:52 BP 122/84 09/12/20 18:52 Pulse Ox 92 09/12/20 18:52 Weight last 48 hrs Weight 71.214 kg Physical Exam Narrative: EXAM NARRATIVE: middle-aged male who was laying in his bed saturating well on 4 L nasal cannula Daughter at the bedside Patient did appear anxious He gets tachycardic with change in position, Orthostatics were not done S1, S2 sinus rhythm tachycardia no signs of heart failure Abdomen soft nontender Lower extremity no edema gangrene ulcer Bilateral breath sounds with inspiratory crepitations and expiratory crackles at the bases Visible muscle mass loss EOMI, PERRLA No strokelike symptoms no neurological deficits, awake alert oriented x3 Data : 09/12/20 17:54 09/12/20 17:54 A&P Assessment and plan (1) Acute and chronic respiratory failure with hypoxia: Status: Acute (2) Pulmonary embolism: Status: Acute (3) Interstitial lung disease: Status: Acute (4) Pulmonary fibrosis: Status: Acute (5) Coronary artery disease: Status: Acute Qualifiers: Coronary Disease-Associated Artery/Lesion type: [place] artery [place] vs. transplanted heart: [place] heart Associated angina: with unspecified angina Qualified Code(s): I25.119 - Atherosclerotic heart disease of [place] coronary artery with unspecified angina pectoris Additional A&P Information Acute on chronic hypoxic respiratory failure with underlying interstitial lung disease Patient currently requiring 4 to 5 L nasal cannula oxygen supplementation to keep O2 saturation above 90% Patient symptoms started after he was discharged from the residential, afebrile with mild leukocytosis, he takes prednisone, CTA chest consistent with bronchiectasis, bronchitis pulmonary embolism He received broad-spectrum antibiotics in the ER For pseudomonal and gram-negative coverage I will keep him on Levaquin and cefepime for now obtain blood culture, sputum culture, I do believe his leukocytosis is secondary to steroid use and CT scan probably is showing f ibrotic changes of his chronic underlying interstitial lung disease, de-escalate antibiotics if he is clinically doing better in the morning we will obtain CRP, procalcitonin level P-ANCA antibody, no eosinophilia, microscopic polyangiitis has not been ruled out however he does have skin rash, myalgia, arthralgia, liver enzymes are normal, no previous history of microscopic hematuria I will continue him on high-dose steroids for now along atovoquone, CT scan did not show any granulomas, no previous history of sinusitis or hemoptysis or otitis media. Might benefit from Dr. Mayfield's consult in the morning Acute symptomatic pulmonary embolism Patient has been bleeding and sedentary lifestyle because of his debilitating interstitial lung disease, will obtain venous Dopplers, start him on Lovenox, obtain echo in the morning, no active chest pain, troponin XVIII, obtain BNP no typical right heart strain symptoms on EKG as well Hemodynamically stable no need of TPA Intermittent angina equivalent symptoms Patient is complaining of chest pain which happens with hypoxia, his symptoms improved with improvement in oxygenation, he has history of coronary disease I would continue dual antiplatelet therapy for now along Lovenox, his stent was placed in April this year, No active chest pain, troponin not significantly elevated no ischemic or infarct change on EKG Limited resuscitation: Patient does not want to be intubated for respiratory failure or cardiac arrest however okay with chest compressions defibrillator use of BiPAP, Ambu bag ventilation, daughter was present in the room when we discussed goals of care Cardiac diet DVT prophylaxis therapeutic dose of Lovenox for PE Attestations Medical Necessity Statement*: Anticipating stay in the hospital cross more than 2 midnights for management of acute on chronic hypoxia, PE Time Spent in Patient Care: (>than 50% of time spent in counselling and/or direct pt care on unit) . 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 transplanted heart: [place] heart Associated angina: with unspecified angina
[2020-09-12] MEDS: levofloxacin-dextrose 5 % 750 MG/150 ML PREMIX 100 MG IV (19:23)
[2020-09-12] MEDS: enoxaparin 80 mg/0.8 mL Syringe 70 MG SUBCUT (20:29)
[2020-09-12 20:31] LABS: Urine Appearance Clear (CLEAR); Urine Color Yellow (Yellow); pH Urine 8 (5-7)
[2020-09-12 20:32] LABS: Add Urine Microscopic? YES; Bilirubin Urine Neg (Negative); Blood Urine 3+ (Negative); Glucose Urine UA Norm (Normal); Ketones Urine Negative (Negative); Leukocyte Esterase Urine Negative (Negative); Nitrate Urine Negative (Negative); Protein Urine Neg (Negative); Sulfosalicylic Acid Urine Negative (Negative); Urobilinogen Urine Norm (Negative)
[2020-09-12 20:33] LABS: WBC Urine 0-4 /hpf (0-5)
[2020-09-12 20:34] LABS: Add Urine Culture? No; Bacteria Urine TRACE /hpf; Hyaline Casts Urine 0-4 /lpf; Mucus Urine 1+ /hpf; Squamous Epithelial Cell Urine 0-4 /hpf (0-5)
[2020-09-12 20:39] LABS: Troponin 5 2HR 18.28 ng/L (0-15); Troponin 5 2HR Delta 0.28 ABS# (0-10)
[2020-09-12] MEDS: piperacillin-tazobactam 3.375 GM in sodium chloride 0.9% (plus) 50 ML IV (21:05)
[2020-09-12 21:34] LABS: NT Pro B Type Natriuretic Pept 246 pg/mL (0-125); Procalcitonin 0.06 ng/mL (0-0.5)
[2020-09-12 21:44] LABS: C Reactive Protein 35.8 mg/L (0.0-4.9)
[2020-09-12] MEDS: vancomycin 1,000 MG in sodium chloride 0.9% 250 ML 250 MG IV (22:33)
--- NOTE | 2020-09-12 23:11 | ECG_ITS ---
[facility] Test Date: 2020-09-12 Pat Name: Gregg Babcock Department: Room: ICU06 Gender: Male Knot Borer: : 1955 Requested By: Shailesh Benitez Order Number: [id number] Jaelyn MD: Ric Rosa M.D. Measurements Intervals [place] Rate: 96 P: 52 [place]: 158 QRS: -40 QRSD: 88 T: 38 QT: 324 QTc: 409 Interpretive Statements SINUS RHYTHM LEFT AXIS DEVIATION [QRS AXIS < -30] MINIMAL VOLTAGE CRITERIA FOR LVH, CONSIDER NORMAL VARIANT [MEETS CRITERIA IN ONE OF: R(aVL), S(V1), R(V5), R(V5/V6)+S(V1)] NONSPECIFIC T-WAVE ABNORMALITY Compared to ECG 09/12/2020 18:51:42 Left-axis deviation now present T-wave abnormality still present Electronically Signed On 09-14-2020 19:03:17 CDT by Ric Rosa M.D. [email or web address] at [email or web address] hospital.Sway/[id number]
[2020-09-12] MEDS: LORazepam 2 mg/mL INJ 1 mL 1 MG IVP (23:24)
[2020-09-12] MEDS: sodium chloride 0.9% 1,000 ML 30 ML IV (23:57)
[2020-09-12] MEDS: mirtazapine 15 mg Tablet PO (23:58)
[2020-09-13] VITALS (52 sets, daily range): BP systolic 89–119; BP diastolic 57–80; PULSE 69–121; RESP 15–33; TEMP 36.4–36.8; O2SAT 83–98
[2020-09-13 00:02] LABS: Troponin 5 6HR 14.81 ng/L (0-15)
[2020-09-13 00:10] LABS: Troponin 5 6HR Delta -3.19 ng/L (0-12)
[2020-09-13] MEDS: cefepime 2,000 MG in sodium chloride 0.9% (plus) 50 ML 100 MG IV (00:41)
[2020-09-13] MEDS: ipratropium-albuterol 3 mL Neb INHALATION (03:46)
[2020-09-13 05:38] LABS: Basophils % 0.3 %; Hematocrit 35.4 % (42.0-52.0); Hemoglobin 11.5 g/dL (11.7-16.6); Lymphocytes # 2.7 10^3/uL (0.8-4.8); Lymphocytes % 25.4 %; Mean Corpuscular HGB Conc 32.5 g/dL (30.0-36.0); Mean Corpuscular Hemoglobin 27.8 pg (28.0-34.0); Mean Corpuscular Volume 85.7 fL (80-94); Mean Platelet Volume 9.2 fL (7.4-10.4); Monocytes # 0.1 10^3/uL (0.2-0.9); Monocytes % 1.1 %; Neutrophils # 7.59 10^3/uL (1.8-7.7); Neutrophils % 71.2 %; Nucleated Red Blood Cells % 0 %; Platelet Count 276 10^3/cmm (130-400); Red Blood Count 4.13 10^6/uL (4.1-5.3); Red Cell Distribution Width 17.8 % (12.1-15.1); White Blood Count 10.7 10^3/uL (4.0-10.0)
[2020-09-13] MEDS: enoxaparin 80 mg/0.8 mL Syringe 70 MG SUBCUT ×2 (06:00→18:23)
[2020-09-13 06:09] LABS: Anion Gap 13.3 (5-19); Blood Urea Nitrogen 15 mg/dL (8-23); Calcium 8.6 mg/dL (8.5-10.5); Carbon Dioxide 24 mmol/L (22-29); Chloride 100 mmol/L (98-107); Glomerular Filtration Rate 167.9 mL/min (90-130); Glucose 164 mg/dL (65-115); Osmolality Calculated 280 mOsm/kg (285-295); Potassium 4.3 mmol/L (3.5-5.1); Sodium 133 mmol/L (136-145)
[2020-09-13 06:28] LABS: Slide Review Slide Review Perform
--- NOTE | 2020-09-13 06:44 | PC.NURSE ---
uneventful night, desats fast into low 80's if not on O2 but rebounds well, requested PRN anxiety med reported to Hospitalist, supine call light within reach
--- NOTE | 2020-09-13 08:55 | ECG_ITS ---
[facility] Test Date: 2020-09-13 Pat Name: Gregg Babcock Department: Room: ICU06 Gender: Male Vector Control Assistant: : 1955 Requested By: Alfonso Jackson Order Number: [id number] Jaelyn MD: Ric Rosa M.D. Measurements Intervals [place] Rate: 116 P: 55 [place]: 158 QRS: -39 QRSD: 93 T: 0 QT: 304 QTc: 424 Interpretive Statements SINUS TACHYCARDIA MARKED LEFT AXIS DEVIATION [QRS AXIS < -30] NONSPECIFIC ST & T-WAVE ABNORMALITY Compared to ECG 09/12/2020 22:42:29 Sinus rhythm no longer present T-wave abnormality still present Electronically Signed On 09-14-2020 19:02:41 CDT by Ric Rosa M.D. [email or web address].[email or web address] [id number]
--- NOTE | 2020-09-13 08:59 | PM.PN ---
Subjective Subjective: Interval history: Admitted overnight. H&P and labs noted. No acute events since admission. On examination patient is on high flow 7 L saturating 92%. Heart rate of 112 bpm. He states he recently released for discharge from [facility] around 3 days ago after which she is having difficulty in breathing on minimal exertion. He denies any chest pain, nausea, vomiting, dizziness at present. Denies any fever or febrile episodes at home increased cough than baseline. Vitals/I&O/Wt Last Vital Signs Temp 98.3 F 09/12/20 23:42 Pulse 112 H 09/13/20 08:23 Resp 18 09/13/20 08:23 BP 114/77 09/13/20 05:00 Pulse Ox 98 09/13/20 08:23 09/12/20 09/13/20 09/13/20 22:59 06:59 14:59 Intake Total 200 / 200 100 / 300 Balance 200 / 200 100 / 300 Weight last 48 hrs Weight 71.214 kg Physical Exam Narrative: EXAM NARRATIVE: middle-aged male who was laying in his bed saturating 92% on high flow 7 L, mildly anxious S1, S2 sinus rhythm tachycardia no signs of heart failure Abdomen soft nontender Lower extremity no edema gangrene ulcer Bilateral breath sounds with inspiratory crepitations and expiratory crackles at the bases, decreased air entry in the right upper lobe Visible muscle mass loss EOMI, PERRLA No stroke like symptoms no neurological deficits, awake alert oriented x3 Data : 09/13/20 04:47 09/13/20 04:47 Micro: Microbiology 09/12/20 20:00 Blood Culture - Preliminary Blood SPECIMEN COLLECTED 09/12/20 20:06 Blood Culture - Preliminary Blood SPECIMEN COLLECTED A&P Assessment and plan (1) Acute and chronic respiratory failure with hypoxia: Status: Acute (2) Pulmonary embolism: Status: Acute (3) Interstitial lung disease: Status: Acute (4) Pulmonary fibrosis: Status: Acute (5) Coronary artery disease: Status: Acute Qualifiers: Associated angina: with unspecified angina Coronary Disease-Associated Artery/Lesion type: little shell tribe artery [place] vs. transplanted heart: little shell tribe heart Qualified Code(s): I25.119 - Atherosclerotic heart disease of little shell tribe coronary artery with unspecified angina pectoris Additional A&P Information Acute on chronic hypoxic respiratory failure in setting of interstitial lung disease, pulmonary fibrosis, history of aspergillosis post right upper lobe lobectomy, PJP pneumonia on atovaquone prophylaxis. Recently discharged from [facility] after being at [facility] for 2 months. Found to have occlusion subocclusive PE. Continue Lovenox 1 mg/kg body weight every 12 hourly as per creatinine clearance. Decrease the dose of steroids to 40 mg methylprednisolone IV daily. Budesonide twice daily, Xopenex every 4 hour, ipratropium every 4 hours. Oxygen supplementation keeping saturation over 88%. Low chances of pneumonia at present. Check procalcitonin, MRSA swab, sputum culture, proBNP. Stop cefepime. MRSA swab negative in the past. If patient spikes fever or becomes hemodynamically unstable can plan to start antibiotics at that time. Continue with atovaquone prophylaxis with 1500 mg daily. Patient would most likely need to be on steroids going forward because of severe interstitial lung disease. He would need to be on prophylaxis till he is on high-dose steroids. Echocardiogram pending. Patient does not seem to have any right heart strain at present. PT/OT evaluation. History of CAD: Post stenting in April. Echocardiogram done at that time shows an EF of 60% with no regional wall motion abnormality No active angina at present. Continue with aspirin, Plavix, statin. Increase the dose of metoprolol to 50 twice daily. Continue home dose of ivabradine. Discharge planning: Given severe physical deconditioning, exertional hypoxia patient will most likely need placement to SNF versus possible placement at LTAC. Discussed the same with patient's daughter over the phone. They are agreeable to same. Will get case management involved. PT/OT evaluation. We'll change planning as per the course of hospitalization. Check HbA1c, iron panel, lipid panel, TSH Limited resuscitation: Patient does not want to be intubated for respiratory failure or cardiac arrest however okay with chest compressions defibrillator use of BiPAP, Ambu bag ventilation, daughter was present in the room when we discussed goals of care Cardiac diet DVT prophylaxis therapeutic dose of Lovenox for PE Attestations Medical Necessity Statement*: Patient requires further hospitalization for management of acute on chronic hypoxic respiratory failure because of new PE in setting of pulmonary fibrosis, recent P ZACHERY pneumonia, history of right upper lobe lobectomy Time Spent in Patient Care: Greater than 35 minutes (>than 50% of time spent in counselling and/or direct pt care on unit). Coding Level of Care Code Acute Zipper Setter Chainstitch for Chg Fwd Diagnoses Acute and chronic respiratory failure with hypoxia J96.21 Pulmonary embolism I26.99 Interstitial lung disease J84.9 Pulmonary fibrosis J84.10 Coronary artery disease I25.119 Associated angina: with unspecified angina Coronary Disease-Associated Artery/Lesion type: little shell tribe artery [place] vs. transplanted heart: little shell tribe heart
[2020-09-13] MEDS: budesonide 0.5 mg/2 mL Neb INHALATION ×2 (09:37→20:57)
[2020-09-13] MEDS: atorvastatin 40 mg Tablet 20 MG PO (09:57)
[2020-09-13] MEDS: aspirin 81 mg EC Tablet PO (09:57)
[2020-09-13] MEDS: escitalopram 10 mg Tablet 20 MG PO (09:58)
[2020-09-13] MEDS: clopidogrel 75 mg Tablet PO (09:58)
[2020-09-13] MEDS: BuSPIRONE 10 mg Tablet 5 MG PO ×3 (09:58→20:29)
[2020-09-13] MEDS: levoFLOXacin 750 mg Tablet PO (09:59)
[2020-09-13] MEDS: sennosides-docusate Tablet 1 TAB PO ×2 (09:59→17:26)
[2020-09-13] MEDS: metoprolol tartrate 50 mg Tablet PO ×2 (10:00→20:29)
[2020-09-13] MEDS: NON-FORMULARY MEDICATION (Atovaquone 750 mg/5 mL suspension) PO ×2 (10:02→17:23)
[2020-09-13 10:05] LABS: Procalcitonin 0.04 ng/mL (0-0.5); Thyroid Stimulating Hormone 0.16 uIU/mL (0.27-4.20)
[2020-09-13 10:16] LABS: Iron 62 ug/dL (59-158); Percent Saturation 27.6 % (20-50); Total Iron Binding Capacity 224 mcg/dl; Unsaturated Iron Binding 162 ug/dL (112-347)
--- NOTE | 2020-09-13 10:52 | PC.CHAP ---
Pastoral Care Encounter/Spiritual Assessment Type of Contact [] Declined plush cutter visit [] Patient/Family/Request visit [] Outpatient visit [] Follow-up visit [] Physician referral [] Code/Alert [x] Routine visit [] Staff referral [] Actively dying [] Patient sleeping [] Family support [] [] Out of room [] Palliative care [] [x] Receiving care in room [] Pre-surgical visit [] Trauma [] Long length of stay [x] ICU visit [] Other: Relational/Emotional Strength [] Patient feels connected with others/family/visitors/staff [] Distress [] Loneliness/isolation [] Abandonment Spirituality of Patient [x] Person of Dian [] Attends Taoist of their Dian [] Believes in Prayer [] Reads Bible or Baptism materials [] There are Spiritual issues to be addressed Pig Farmer Interventions [x] Prayer [x] Active listening [x] Non-anxious presence [x] Spiritual/emotional support [] Crisis/trauma care [] Spiritual counseling [] Bereavement support [] Provided bereavement packet [] Provided Bible/devotional materials [] Provided toy/stuffed animal, coloring book to patient or family member [] Provided Communion [] Anointing/[place] [] Salvation [x] Completed spiritual assessment [] Other: Impact on Illness or Injury [] Angry [] Fearful [] Anxious [] Often cries [] Exhaustion [] Unable to work [] Unable to attend jehovah's witness [] Unable to walk/stand [] Unable to read [] Unable to drive [] Unable to eat/drink [] Unable to sleep [] Unable to be with family [] Patient intubated [] Other: Summary Time spent with patient
[2020-09-13] MEDS: levalbuterol 0.63 mg/3 mL Neb INHALATION ×3 (11:09→20:57)
[2020-09-13] MEDS: ipratropium 0.5 mg/2.5 mL Neb INHALATION ×3 (11:09→20:57)
--- NOTE | 2020-09-13 16:37 | PC.RESP ---
Pulmonary Rehab information sent to patient.
--- NOTE | 2020-09-13 18:34 | PC.NURSE ---
Shift summary: Uneventful shift. Pt rested in bed most of day. O2 saturation goal per Dr wiley is 88-92% which has been achieved on 3-5 L NC.
[2020-09-13 19:28] LABS: Estmated Average Glucose 131; Hemoglobin A1C 6.2 % (4.0-6.0)
[2020-09-13] MEDS: mirtazapine 15 mg Tablet PO (20:29)
[2020-09-13 20:44] LABS: Free T4 Free Thyroxine 1.26 ng/dL (0.82-1.77); T3 Free 2.6 PG/ML (2.0-4.4)
--- NOTE | 2020-09-13 21:33 | PC.NURSE ---
Listed Allergy Note; Patient asked RN for a dose of Tylenol to be administered based on c/o mild to moderate pain levels. RN messaged MD Lino patient registration representative to obtain orders for medication admin. RN noticed inside of chart that Hydrocodone, and Acetaminophen were listed as allergies. RN questioned patient on allergies, and patient stated he has taken both of these medications and has had no issues/does not believe he has an allergy to either. This information was relayed over to MD, and RN assuming care.
[2020-09-13] MEDS: LORazepam 0.5 mg Tablet PO (22:00)
--- NOTE | 2020-09-13 23:31 | USCV_ITS ---
Gregg Babcock Age: 65 Gender: M : 1955 Exam Date: 09/13/2020 06:18 Ordering Phys: Jesus Huynh MD Technologist: Catherine Salazar Exam Location: [facility] [place]_ Indication: PE, HYPOXIA HISTORY: Pulmonary embolism. PROCEDURES: Venous duplex imaging was performed in bilateral lower extremities. The following venous structures were evaluated: common femoral vein, profunda vein, proximal portion of the greater saphenous vein, superficial femoral vein, and the popliteal vein. In addition, the posterior tibial and peroneal trunk were evaluated. Serial compression, augmentation maneuvers, and spectral Doppler flow evaluation were performed. FINDINGS: No evidence of DVT seen in any vessel visualized at this time. CONCLUSIONS No evidence of right lower extremity DVT. No evidence of left lower extremity DVT. Rosalio Prado MD (Electronically Signed) Final Date: 13 September 2020 09:59 S
--- NOTE | 2020-09-13 23:31 | USCV_ITS ---
Gregg Babcock Age: 65 Gender: M : 1955 Exam Date: 09/13/2020 13:57 Ordering Phys: Jesus Huynh MD Technologist: Catherine Salazar Exam Location: [facility] [place] Indication: PE BP: 96 / 71 HR: 106 Rhythm: Sinus Technical Quality: Adequate MEASUREMENTS (Male / Female) Normal Values 2D ECHO LV Diastolic Diameter PLAX 4.8 cm 4.2 - 5.9 / 3.9 - 5.3 cm LV Systolic Diameter PLAX 3.3 cm IVS Diastolic Thickness 1.2 cm 0.6 - 1.0 / 0.6 - 0.9 cm IVS Systolic Thickness 1.7 cm LVPW Diastolic Thickness 1.1 cm 0.6 - 1.0 / 0.6 - 0.9 cm LVPW Systolic Thickness 1.5 cm LVOT Diameter 2.0 cm LV Ejection Fraction 2D Teich 59.8 % LV Ejection Fraction MOD 2C 60.8 % LV Ejection Fraction 2C AL 62.9 % LA Diameter 3.0 cm LA Width 2.5 cm LA Height 3.0 cm RA Width 2.7 cm RA Height 2.5 cm Aorta at Sinotubular Diameter 3.4 cm M-MODE LV Diastolic Diameter MM 4.7 cm 4.2 - 5.9 / 3.9 - 5.3 cm LV Systolic Diameter MM 3.2 cm LV Ejection Fraction MM Teich 61.0 % IVS Diastolic Thickness MM 1.2 cm 0.6 - 1.0 / 0.6 - 0.9 cm IVS Systolic Thickness MM 1.7 cm LVPW Diastolic Thickness MM 0.9 cm 0.6 - 1.0 / 0.6 - 0.9 cm LVPW Systolic Thickness MM 1.8 cm Aortic Annulus Diameter 4.0 cm LA Ao Ratio MM 0.8 MV E Point Septal Separation 0.5 cm DOPPLER AV Peak Velocity 95.0 cm/s LVOT Peak Velocity 69.0 cm/s AV Area Cont Eq vti 2.3 cm squared AV Area Cont Eq pk 2.3 cm squared MV Peak Velocity 92.0 cm/s MV Area PHT 4.4 cm squared Mitral E to A Ratio 0.6 MV E' Velocity 29.5 cm/s Mitral E to MV E' Ratio 5.8 Mitral E to LV E' Lateral Ratio 4.9 Mitral E to LV E' Septal Ratio 7.2 PV Peak Velocity 94.0 cm/s RV Acceleration Time 0.0 s RV Ejection Time 0.3 s RV AcT/ET 0.2 FINDINGS Left Ventricle Normal left ventricular cavity size. Normal left ventricular systolic function. No regional wall motion abnormalities. Left ventricular ejection fraction is estimated at 61%. Grade I/IV diastolic dysfunction (abnormal relaxation filling pattern), normal to mildly elevated filling pressures. In short axis acceleration of flow Right Ventricle The right ventricle is normal in size and function. Right Atrium Acceleration of the flow from the right atrium noted cannot rule out sinus of Valsalva to right atrial fistula.. Right atrium is of normal size. Left Atrium The left atrium is normal in size. Mitral Valve Mildly thickened mitral valve. No mitral valve stenosis. Moderate mitral valve regurgitation. Aortic Valve Structurally normal aortic valve without significant sclerosis or stenosis. There is no aortic regurgitation. Tricuspid Valve Structurally normal tricuspid valve without significant stenosis or regurgitation. Pulmonary artery systolic pressure is normal. Pulmonic Valve Structurally normal pulmonic valve without significant stenosis. There is no pulmonic regurgitation. Pericardium Normal pericardium without effusion. Aorta Mildly dilated ascending aorta dimension. Not well visualized though cannot rule out sinus of Valsalva aneurysm and fistula. Further assessment with transesophageal echocardiogram or CT with contrast can be performed. CONCLUSIONS 1-Normal left ventricular cavity size. Normal left ventricular systolic function. No regional wall motion abnormalities. Left ventricular ejection fraction is estimated at 61%. Grade I/IV diastolic dysfunction (abnormal relaxation filling pattern), normal to mildly elevated filling pressures. In short axis acceleration of flow. 2-Acceleration of the flow from the right atrium noted cannot rule out sinus of Valsalva to right atrial fistula.. Right atrium is of normal size. 3-Mildly dilated ascending aorta dimension. Not well visualized though cannot rule out sinus of Valsalva aneurysm and fistula. Further assessment with transesophageal echocardiogram or CT with contrast can be performed. 4-Mildly thickened mitral valve. No mitral valve stenosis. Moderate mitral valve regurgitation. 5-There is no pericardial effusion. 6-Right atrial pressure is around 5 mm of mercury. 7-There are no prior echocardiogram studies to compare. Jesus Richardson MD (Electronically Signed) Final Date: 13 September 2020 21:57 S
[2020-09-14] VITALS (41 sets, daily range): BP systolic 85–111; BP diastolic 55–77; PULSE 63–105; RESP 11–27; TEMP 36.5–37.2; O2SAT 79–98
[2020-09-14] MEDS: levalbuterol 0.63 mg/3 mL Neb INHALATION ×6 (00:24→19:40)
[2020-09-14] MEDS: ipratropium 0.5 mg/2.5 mL Neb INHALATION ×6 (00:24→19:40)
[2020-09-14 05:08] LABS: Basophils % 0.3 %; Eosinophils % 0.1 %; Hematocrit 33.8 % (42.0-52.0); Hemoglobin 10.7 g/dL (11.7-16.6); Lymphocytes # 4.5 10^3/uL (0.8-4.8); Lymphocytes % 29.6 %; Mean Corpuscular HGB Conc 31.7 g/dL (30.0-36.0); Mean Corpuscular Hemoglobin 28.1 pg (28.0-34.0); Mean Corpuscular Volume 88.7 fL (80-94); Mean Platelet Volume 9.2 fL (7.4-10.4); Monocytes # 1.3 10^3/uL (0.2-0.9); Monocytes % 8.4 %; Neutrophils # 9.07 10^3/uL (1.8-7.7); Neutrophils % 60.2 %; Nucleated Red Blood Cells % 0 %; Platelet Count 280 10^3/cmm (130-400); Red Blood Count 3.81 10^6/uL (4.1-5.3); Red Cell Distribution Width 18.2 % (12.1-15.1)
[2020-09-14 05:20] LABS: Alanine Aminotransferase 12 U/L (0-41); Albumin Level 3.2 g/dL (3.5-5.2); Alkaline Phosphatase 65 IU/L (40-130); Anion Gap 11.1 (5-19); Aspartate Amino Transferase 11 U/L (0-40); Blood Urea Nitrogen 16 mg/dL (8-23); Calcium 8.5 mg/dL (8.5-10.5); Carbon Dioxide 28 mmol/L (22-29); Chloride 103 mmol/L (98-107); Chol HDL Ratio 2.81 mg/dL (1.0-5.00); Cholesterol 132 mg/dL (0-200); Globulin 2.8 g/dL (1.3-4.6); Glomerular Filtration Rate 136.1 mL/min (90-130); Glucose 105 mg/dL (65-115); HDL Cholesterol 47 mg/dL (60-100); LDL Cholesterol Calculated 68 mg/dL (50-129); Osmolality Calculated 288 mOsm/kg (285-295); Potassium 4.1 mmol/L (3.5-5.1); Sodium 138 mmol/L (136-145); Total Bilirubin 0.3 mg/dL (0.15-1.2); Triglycerides 84 mg/dL (0-150); VLDL Cholestrol Calculation 17 mg/dL (0-30)
[2020-09-14] MEDS: enoxaparin 80 mg/0.8 mL Syringe 70 MG SUBCUT (06:19)
[2020-09-14] MEDS: budesonide 0.5 mg/2 mL Neb INHALATION ×2 (07:52→19:40)
--- NOTE | 2020-09-14 09:07 | PC.CHAP ---
Pastoral Care Encounter/Spiritual Assessment Type of Contact [] Declined practice nurse visit [] Patient/Family/Request visit [] Outpatient visit [] Follow-up visit [] Physician referral [] Code/Alert [x] Routine visit [] Staff referral [] Actively dying [x] Patient sleeping [] Family support [] [] Out of room [] Palliative care [] [] Receiving care in room [] Pre-surgical visit [] Trauma [] Long length of stay [x] ICU visit [] Other: Relational/Emotional Strength [] Patient feels connected with others/family/visitors/staff [] Distress [] Loneliness/isolation [] Abandonment Spirituality of Patient [] Person of Dian [] Attends Shinto of their Dian [] Believes in Prayer [] Reads Bible or Protestant materials [] There are Spiritual issues to be addressed Complaint Manager Interventions [x] Prayer [] Active listening [] Non-anxious presence [] Spiritual/emotional support [] Crisis/trauma care [] Spiritual counseling [] Bereavement support [] Provided bereavement packet [] Provided Bible/devotional materials [] Provided toy/stuffed animal, coloring book to patient or family member [] Provided Communion [] Anointing/[place] [] Salvation [x] Completed spiritual assessment [] Other: Impact on Illness or Injury [] Angry [] Fearful [] Anxious [] Often cries [] Exhaustion [] Unable to work [] Unable to attend buddhism [] Unable to walk/stand [] Unable to read [] Unable to drive [] Unable to eat/drink [] Unable to sleep [] Unable to be with family [] Patient intubated [] Other: Summary Time spent with patient
[2020-09-14] MEDS: aspirin 81 mg EC Tablet PO (09:29)
[2020-09-14] MEDS: atorvastatin 40 mg Tablet 20 MG PO (09:29)
[2020-09-14] MEDS: levoFLOXacin 750 mg Tablet PO (09:30)
[2020-09-14] MEDS: clopidogrel 75 mg Tablet PO (09:30)
[2020-09-14] MEDS: fluticasone nasal spray 16gm Btl 2 SPRAY INTRANASAL (09:30)
[2020-09-14] MEDS: escitalopram 10 mg Tablet 20 MG PO (09:30)
[2020-09-14] MEDS: sennosides-docusate Tablet 1 TAB PO ×2 (09:30→17:59)
[2020-09-14] MEDS: BuSPIRONE 10 mg Tablet 5 MG PO ×3 (09:30→20:46)
--- NOTE | 2020-09-14 10:00 | PM.PN ---
Subjective Subjective: Interval history: No acute events overnight. Patient seems a lot more comfortable today. He is on 4 L nasal cannula saturating 92%. He states he feels better. Patient still desaturating down to mid 80s on ambulation. Heart rate a lot better controlled. Vitals/I&O/Wt Last Vital Signs Temp 97.8 F 09/14/20 04:00 Pulse 71 09/14/20 07:58 Resp 18 09/14/20 07:52 BP 93/61 09/14/20 05:00 Pulse Ox 94 09/14/20 07:52 09/13/20 09/14/20 09/14/20 22:59 06:59 14:59 Intake Total 250 / 250 Output Total 1350 / 1350 Balance -1100 / -1100 Weight last 48 hrs Weight 71.214 kg Physical Exam Narrative: EXAM NARRATIVE: middle-aged male who was laying in his bed saturating 92% on on 4 L nasal cannula. Not anxious today. S1, S2 sinus rhythm, no tachycardia no signs of heart failure Abdomen soft nontender Lower extremity no edema gangrene ulcer Bilateral breath sounds with inspiratory crepitations and expiratory crackles at the bases, decreased air entry in the right upper lobe Visible muscle mass loss EOMI, PERRLA No stroke like symptoms no neurological deficits, awake alert oriented x3 Data : 09/14/20 04:32 09/14/20 04:32 Micro: Microbiology 09/12/20 20:00 Blood Culture - Preliminary Blood NEGATIVE TO DATE 09/12/20 20:06 Blood Culture - Preliminary Blood NEGATIVE TO DATE A&P Assessment and plan (1) Acute and chronic respiratory failure with hypoxia: Status: Acute (2) Pulmonary embolism: Status: Acute (3) Interstitial lung disease: Status: Acute (4) Pulmonary fibrosis: Status: Acute (5) Coronary artery disease: Status: Acute Qualifiers: Associated angina: with unspecified angina Coronary Disease-Associated Artery/Lesion type: [place] artery [place] vs. transplanted heart: [place] heart Qualified Code(s): I25.119 - Atherosclerotic heart disease of [place] coronary artery with unspecified angina pectoris (6) Steroid-induced diabetes mellitus: Status: Acute (7) Long-term current use of steroids: Status: Acute (8) Pneumocystis jiroveci pneumonia: Status: Resolved Qualifiers: Laterality: unspecified laterality Lung location: unspecified part of lung Qualified Code(s): B59 - Pneumocystosis Additional A&P Information Acute on chronic hypoxic respiratory failure in setting of interstitial lung disease, pulmonary fibrosis, history of aspergillosis post right upper lobe lobectomy, PJP pneumonia on atovaquone prophylaxis. Recently discharged from [facility] after being at [facility] for 2 months. Found to have occlusion subocclusive PE. Switch from Lovenox to Eliquis. Patient will be on Eliquis 10 mg twice daily for 7 days followed by 5 mg twice daily. Continue with 40 mg methylprednisolone IV daily. Will transition to oral tomorrow. Budesonide twice daily, Xopenex every 4 hour, ipratropium every 4 hours. Oxygen supplementation keeping saturation over 88%. Low chances of pneumonia at present. Check procalcitonin, MRSA swab, sputum culture, proBNP. Stop cefepime. MRSA swab negative in the past. If patient spikes fever or becomes hemodynamically unstable can plan to start antibiotics at that time. Continue with atovaquone prophylaxis with 1500 mg daily. Patient would most likely need to be on steroids going forward because of severe interstitial lung disease. He would need to be on prophylaxis till he is on high-dose steroids. Echocardiogram results appreciated. PT/OT evaluation. History of CAD: Post stenting in April. Echocardiogram done at that time shows an EF of 60% with no regional wall motion abnormality No active angina at present. Continue with aspirin, Plavix, statin, metoprolol 50 twice daily, ivabradine at current dose. Steroid-induced diabetes: HbA1c 6.2. Most likely patient would need low-dose Metformin on discharge. Discharge planning: Given severe physical deconditioning, exertional hypoxia patient will most likely need placement to SNF versus possible placement at LTAC. Discussed the same with patient's daughter over the phone. They are agreeable to same. Will get case management involved. PT/OT evaluation. We'll change planning as per the course of hospitalization. Limited resuscitation: Patient does not want to be intubated for respiratory failure or cardiac arrest however okay with chest compressions defibrillator use of BiPAP, Ambu bag ventilation, daughter was present in the room when we discussed goals of care Cardiac diet DVT prophylaxis therapeutic dose of Lovenox for PE Transfer to cardiac stepdown unit. Attestations Medical Necessity Statement*: Patient requires further hospitalization for management of acute on chronic hypoxic respiratory failure because of pulmonary embolism in setting of severe interstitial lung disease, pulmonary fibrosis while safe discharge planning is sought Time Spent in Patient Care: Greater than 35 minutes (>than 50% of time spent in counselling and/or direct pt care on unit). Coding Level of Care Code Acute Bottle Sorter for [place] Fwd Diagnoses Acute and chronic respiratory failure with hypoxia J96.21 Pulmonary embolism I26.99 Interstitial lung disease J84.9 Pulmonary fibrosis J84.10 Coronary artery disease I25.119 Associated angina: with unspecified angina Coronary Disease-Associated Artery/Lesion type: [place] artery [place] vs. transplanted heart: [place] heart Steroid-induced diabetes mellitus E09.9; T38.0X5A Long-term current use of steroids Pneumocystis jiroveci pneumonia B59 Laterality: unspecified laterality Lung location: unspecified part of lung
[2020-09-14] MEDS: apixaban 5 mg Tablet 10 MG PO (20:46)
[2020-09-14] MEDS: metoprolol tartrate 50 mg Tablet PO (20:47)
[2020-09-14] MEDS: mirtazapine 15 mg Tablet PO (20:47)
[2020-09-14] MEDS: LORazepam 0.5 mg Tablet PO (20:52)
[2020-09-15] VITALS (16 sets, daily range): BP systolic 90–104; BP diastolic 64–78; PULSE 66–95; RESP 18–31; TEMP 36.3–36.4; O2SAT 80–95
[2020-09-15] MEDS: levalbuterol 0.63 mg/3 mL Neb INHALATION ×5 (03:56→15:09)
[2020-09-15] MEDS: ipratropium 0.5 mg/2.5 mL Neb INHALATION ×5 (03:56→15:09)
[2020-09-15 05:27] LABS: Basophils % 0.3 %; Eosinophils % 0.1 %; Hematocrit 38.2 % (42.0-52.0); Lymphocytes # 5.3 10^3/uL (0.8-4.8); Lymphocytes % 37.3 %; Mean Corpuscular HGB Conc 31.4 g/dL (30.0-36.0); Mean Corpuscular Hemoglobin 28.4 pg (28.0-34.0); Mean Corpuscular Volume 90.3 fL (80-94); Mean Platelet Volume 9.1 fL (7.4-10.4); Monocytes # 1.3 10^3/uL (0.2-0.9); Monocytes % 9.2 %; Neutrophils # 7.19 10^3/uL (1.8-7.7); Nucleated Red Blood Cells % 0 %; Platelet Count 268 10^3/cmm (130-400); Red Blood Count 4.23 10^6/uL (4.1-5.3); Red Cell Distribution Width 18.2 % (12.1-15.1); White Blood Count 14.1 10^3/uL (4.0-10.0)
[2020-09-15 05:55] LABS: Alanine Aminotransferase 13 U/L (0-41); Albumin Level 3.2 g/dL (3.5-5.2); Alkaline Phosphatase 73 IU/L (40-130); Aspartate Amino Transferase 14 U/L (0-40); Blood Urea Nitrogen 16 mg/dL (8-23); Calcium 8.9 mg/dL (8.5-10.5); Carbon Dioxide 28 mmol/L (22-29); Chloride 102 mmol/L (98-107); Globulin 3.2 g/dL (1.3-4.6); Glomerular Filtration Rate 113.9 mL/min (90-130); Glucose 93 mg/dL (65-115); Osmolality Calculated 289 mOsm/kg (285-295); Sodium 139 mmol/L (136-145); Total Bilirubin 0.4 mg/dL (0.15-1.2); Total Protein 6.4 g/dL (6.6-8.7)
[2020-09-15 06:19] LABS: Anion Gap 13.6 (5-19); Potassium 4.6 mmol/L (3.5-5.1)
[2020-09-15] MEDS: budesonide 0.5 mg/2 mL Neb INHALATION (07:22)
[2020-09-15] MEDS: apixaban 5 mg Tablet 10 MG PO (10:11)
[2020-09-15] MEDS: sennosides-docusate Tablet 1 TAB PO (10:11)
[2020-09-15] MEDS: metoprolol tartrate 50 mg Tablet PO (10:12)
[2020-09-15] MEDS: escitalopram 10 mg Tablet 20 MG PO (10:12)
[2020-09-15] MEDS: BuSPIRONE 10 mg Tablet 5 MG PO ×2 (10:12→15:48)
[2020-09-15] MEDS: atorvastatin 40 mg Tablet 20 MG PO (10:13)
[2020-09-15] MEDS: clopidogrel 75 mg Tablet PO (10:13)
[2020-09-15] MEDS: fluticasone nasal spray 16gm Btl 2 SPRAY INTRANASAL (10:14)
[2020-09-15] MEDS: aspirin 81 mg EC Tablet PO (10:14)
[2020-09-15] MEDS: levoFLOXacin 750 mg Tablet PO (10:23)
--- NOTE | 2020-09-15 14:08 | PC.NURSE ---
Pt lying in bed resting with eyes open. Resp even and non-labored no distress noted. O2 at 4 Lpm via nc. Pt c/o cough. Pt has dry cough. Pt had no c/o pain or discomfort at the present time. Call light in reach. Will cont to monitor.
--- NOTE | 2020-09-15 15:44 | P.TS_ITS ---
Transfer Summary Providers Date of Admission: 09/12/20 23:31 Date of Discharge: 09/15/20 Attending Provider at Admission: Jesus Huynh MD Attending Provider at Transfer: Alfonso Jackson MD Primary Care Provider: Daniel Nogueira DO Anticipated Date of Transfer: Anticipated date of transfer: 09/15/20 Receiving Facility & Provider: Receiving Provider: [Dr. Madison] Receiving facility: [[facility]] Diagnoses at Discharge Discharge Diagnosis (1) Acute and chronic respiratory failure with hypoxia: Status: Acute (2) Pulmonary embolism: Status: Acute (3) Interstitial lung disease: Status: Acute (4) Pulmonary fibrosis: Status: Acute (5) Coronary artery disease: Status: Acute Qualifiers: Coronary Disease-Associated Artery/Lesion type: wiyot artery [place] vs. transplanted heart: wiyot heart Associated angina: with unspecified angina Qualified Code(s): I25.119 - Atherosclerotic heart disease of wiyot coronary artery with unspecified angina pectoris (6) Steroid-induced diabetes mellitus: Status: Acute (7) Long-term current use of steroids: Status: Acute (8) Pneumocystis jiroveci pneumonia: Status: Resolved Qualifiers: Laterality: unspecified laterality Lung location: unspecified part of lung Qualified Code(s): B59 - Pneumocystosis Reason for Visit Reason for Visit: SOB Hospital Course Hospital Course Gregg Babcock is a 65 year old male who has pretty complex medical history due to his underlying comorbid conditions such as 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), interstitial lung disease, oxygen dependent uses 3 to 4 L of oxygen, coronary disease with stent placement in April, was admitted in June for management of hypoxic respiratory failure, underwent bronchoscopy which revealed PCP pneumonia, he was treated with voriconazole and Bactrim along high-dose steroids because of worsening hypoxia with concern of previous history of aspergilloma, he was transferred to [facility], his Covid PCR was negative he had an extensive rheumatological work-up.(Negative ABE positive rheumatoid factor 22, P ANCA 1:160) Patient is stating that at [place] he received antimicrobial agents and was discharged to [facility] later on, he was discharged from [facility] on Friday, since then his health has been declining, he is describing his symptoms as extreme shortness of breath on mild activity despite being on oxygen, experiences chest discomfort when his oxygen level drops which improved as soon as O2 saturation rises above 90%, no recent nausea, vomiting, or productive cough. He has chronic dry cough, he has not noticed any fever at home. His chest pain is intermittent which he is describing as pressure-like sensation which would last for about few seconds. He is compliant with his aspirin and Plavix. Diagnostics in the ER revealed mild leukocytosis, he was saturating 90% on 5 L nasal cannula, ABG revealed compensated pH and PaO2 84% on 4 L nasal cannula, CTA chest ruled in for PE, Patient admitted to the ICU for further management of acute hypoxic respiratory failure secondary to multiple lung problems along with the occlusive and subocclusive segmental and subsegmental PE. Patient started on anticoagulation. Patient tolerated treatment well. During hospitalization patient is requiring up to 4 to 5 L oxygen supplementation at rest but desaturates very fast on ambulation requiring high oxygen supplementation to maintain saturation over 90%. His hospital stay was unremarkable. Going forward because of multiple pulmonary comorbidities along with a PE patient requires further pulmonary rehab for which placement to LTAC was sought. Patient and patient's family was agreeable. Patient is been discharged and transferred to LTAC in hemodynamically stable condition. Patient is to be on Eliquis 10 mg twice daily for 9 more days followed by 5 mg twice daily. He is to be on prednisone 40 mg daily for steroid. Patient will be on atovaquone 1500 mg daily till time he is on steroids. Patient is to be on metoprolol 50 mg twice daily along with ivabradine for his tachycardia. Patient is to follow-up with Dr. Mayfield within next 1 month. Physical Exam Narrative: EXAM NARRATIVE: middle-aged male who was laying in his bed saturating 92% on on 4 L nasal cannula. Not anxious today. S1, S2 sinus rhythm, no tachycardia no signs of heart failure Abdomen soft nontender Lower extremity no edema gangrene ulcer Bilateral breath sounds with inspiratory crepitations and expiratory crackles at the bases, decreased air entry in the right upper lobe Visible muscle mass loss EOMI, PERRLA No stroke like symptoms no neurological deficits, awake alert oriented x3 TS Data Data Completed and Pending: Completed Studies During Hospitalization Category Date Time Status CT angio chest PE protcl [id number] Urge nt Cat Scan 09/12/20 18:58 Completed XR chest 1V alcides ble [id number] Stat Exams 09/12/20 17:11 Completed CV echo complete* [id number] Routine Ultrasound 09/13/20 23:31 [place] [id number] Routin e Ultrasound 09/13/20 23:31 Completed Pending at discharge Category Date Time Status Blood Culture Sta t Lab 09/12/20 20:00 Results Sputum Culture an d Gram Stain Routi ne Lab 09/12/20 23:31 Uncollected Labs from last 24 hours 09/15/20 09/15/20 03:55 03:55 WBC 14.1 H RBC 4.23 Hgb 12.0 Hct 38.2 L MCV 90.3 MCH 28.4 MCHC 31.4 RDW 18.2 H Plt Count 268 MPV 9.1 Neut % (Auto) 51.0 Lymph % (Auto) 37.3 Cross % (Auto) 9.2 Eos % (Auto) 0.1 Baso % (Auto) 0.3 Neut # (Auto) 7.19 Lymph # (Auto) 5.3 H Cross # (Auto) 1.3 H Eos # (Auto) 0.0 Baso # (Auto) 0.0 Nucleated RBC % (a uto) 0 Nucleated RBCs # 0.0 Sodium 139 Potassium 4.6 Chloride 102 Carbon Dioxide 28 Anion Gap 13.6 BUN 16 Creatinine 0.7 GFR Calculation 113.9 Glucose 93 Calculated Osmolal ity 289 Calcium 8.9 Total Bilirubin 0.4 AST 14 ALT 13 Alkaline Phosphata se 73 Total Protein 6.4 L Albumin 3.2 L Globulin 3.2 Addt'l Data from Hospital Stay: Laboratory Results WBC 14.1 10^3/uL (4.0 -10.0) H 09/15/20 03:55 RBC 4.23 10^6/uL (4.1 -5.3) 09/15/20 03:55 Hgb 12.0 g/dL (11.7-1 6.6) 09/15/20 03:55 Hct 38.2 % (42.0-52.0 ) L 09/15/20 03:55 MCV 90.3 fL (80-94) 09/15/20 03:55 MCH 28.4 pg (28.0-34. 0) 09/15/20 03:55 MCHC 31.4 g/dL (30.0-3 6.0) 09/15/20 03:55 RDW 18.2 % (12.1-15.1 ) H 09/15/20 03:55 Plt Count 268 10^3/cmm (130 -400) 09/15/20 03:55 MPV 9.1 fL (7.4-10.4) 09/15/20 03:55 Neut % (Auto) 51.0 % 09/15/20 03:55 Lymph % (Auto) 37.3 % 09/15/20 03:55 Cross % (Auto) 9.2 % 09/15/20 03:55 Eos % (Auto) 0.1 % 09/15/20 03:55 Baso % (Auto) 0.3 % 09/15/20 03:55 Neut # (Auto) 7.19 10^3/uL (1.8 -7.7) 09/15/20 03:55 Lymph # (Auto) 5.3 10^3/uL (0.8- 4.8) H 09/15/20 03:55 Cross # (Auto) 1.3 10^3/uL (0.2- 0.9) H 09/15/20 03:55 Eos # (Auto) 0.0 10^3/uL (0.0- 0.8) 09/15/20 03:55 Baso # (Auto) 0.0 10^3/uL (0.0- 0.1) 09/15/20 03:55 Nucleated RBC % (a uto) 0 % 09/15/20 03:55 Nucleated RBCs # 0.0 /100WBC 09/15/20 03:55 Specimen Type Arterial 09/12/20 17:10 Sample Site Radial, right 09/12/20 17:10 ABG pH 7.47 (7.35-7.45) H 09/12/20 17:10 ABG pCO2 38.8 mmHg (35-45) 09/12/20 17:10 ABG pO2 84.8 mmHg (80.0-1 00.0) 09/12/20 17:10 ABG HCO3 27.9 mmol/L (22-2 6) H 09/12/20 17:10 ABG O2 Saturation 95.5 09/12/20 17:10 ABG Base Excess 3.9 mmol/L (-2.0- 2.0) H 09/12/20 17:10 Erickson Test Pos 09/12/20 17:10 A-a O2 Gradient 16.1 mmHg (5-10) H 09/12/20 17:10 Hematocrit 36.0 % (42-52) L 09/12/20 17:10 Hgb O2 Saturation 94.5 % (95-100) L 09/12/20 17:10 Carboxyhemoglobin 0.0 %THgb (0.4-20 .1) L 09/12/20 17:10 Methemoglobin 1.0 % (0.4-1.5) 09/12/20 17:10 Total Hemoglobin 11.8 g/dL (14-18) L 09/12/20 17:10 Sodium 137.0 mmol/L (131 -143) 09/12/20 17:10 Potassium 4.4 mmol/L (3.5-5 .0) 09/12/20 17:10 Glucose 124.0 mg/dL (70-1 15) H 09/12/20 17:10 Ionized Calcium 1.2 mmol/L (1.1-1 .4) 09/12/20 17:10 O2 Delivery Device Nc 09/12/20 17:10 O2 Liters/Min 4.0 % 09/12/20 17:10 FiO2 36.0 % 09/12/20 17:10 Computer Numerical Control Programmer ID Amh 09/12/20 17:10 Sodium 139 mmol/L (136-1 45) 09/15/20 03:55 Potassium 4.6 mmol/L (3.5-5 .1) 09/15/20 03:55 Chloride 102 mmol/L (98-10 7) 09/15/20 03:55 Carbon Dioxide 28 mmol/L (22-29) 09/15/20 03:55 Anion Gap 13.6 (5-19) 09/15/20 03:55 BUN 16 mg/dL (8-23) 09/15/20 03:55 Creatinine 0.7 mg/dL (0.7-1. 2) 09/15/20 03:55 GFR Calculation 113.9 mL/min (90- 130) 09/15/20 03:55 Glucose 93 mg/dL (65-115) 09/15/20 03:55 Estimat Average Gl ucose 131 09/13/20 04:47 Hemoglobin A1c 6.2 % (4.0-6.0) H 09/13/20 04:47 Calculated Osmolal ity 289 mOsm/kg (285- 295) 09/15/20 03:55 Calcium 8.9 mg/dL (8.5-10 .5) 09/15/20 03:55 Iron 62 ug/dL (59-158) 09/13/20 04:47 TIBC 224 mcg/dl 09/13/20 04:47 % Saturation 27.6 % (20-50) 09/13/20 04:47 Unsat Iron Binding 162 ug/dL (112-34 7) 09/13/20 04:47 Total Bilirubin 0.4 mg/dL (0.15-1 .2) 09/15/20 03:55 AST 14 U/L (0-40) 09/15/20 03:55 ALT 13 U/L (0-41) 09/15/20 03:55 Alkaline Phosphata se 73 IU/L (40-130) 09/15/20 03:55 Creatine Kinase 35 U/L (39-308) L 09/12/20 17:54 Troponin T Baselin e 18 ng/L (0-15) H 09/12/20 17:54 Troponin T 120 Min eleno 18.28 ng/L (0-15) H 09/12/20 20:06 Delta Troponin T 0.28 ABS# (0-10) 09/12/20 20:06 Troponin T Hi Sens 6Hr 14.81 ng/L (0-15) 09/12/20 23:38 Troponin T Hi Sens 6Hr Delta -3.19 ng/L (0-12) L 09/12/20 23:38 C-Reactive Protein 35.8 mg/L (0.0-4. 9) H 09/12/20 20:06 NT-Pro-B Natriuret Pep 246 pg/mL (0-125) H 09/12/20 20:06 Total Protein 6.4 g/dL (6.6-8.7 ) L 09/15/20 03:55 Albumin 3.2 g/dL (3.5-5.2 ) L 09/15/20 03:55 Globulin 3.2 g/dL (1.3-4.6 ) 09/15/20 03:55 Triglycerides 84 mg/dL (0-150) 09/14/20 04:32 Cholesterol 132 mg/dL (0-200) 09/14/20 04:32 LDL Cholesterol, C alc 68 mg/dL (50-129) 09/14/20 04:32 Total VLDL Cholest sarah beth 17 mg/dL (0-30) 09/14/20 04:32 HDL Cholesterol 47 mg/dL (60-100) L 09/14/20 04:32 Cholesterol/HDL Ra aristeo 2.81 mg/dL (1.0-5 .00) 09/14/20 04:32 Procalcitonin 0.04 ng/mL (0-0.5 ) 09/13/20 04:47 TSH 0.16 uIU/mL (0.27 -4.20) L 09/13/20 04:47 TSH Cancelled 09/13/20 04:47 Free T4 1.26 ng/dL (0.82- 1.77) 09/13/20 04:47 Free T3 2.6 PG/ML (2.0-4. 4) 09/13/20 04:47 Urine Color Yellow (Yellow) 09/12/20 20:00 Urine Appearance Clear (CLEAR) 09/12/20 20:00 Urine pH 8 (5-7) H 09/12/20 20:00 Ur Specific Gravit y 1.010 (1.005-1.0 30) 09/12/20 20:00 Urine Protein Neg (Negative) 09/12/20 20:00 Urine Glucose (UA) Norm (Normal) 09/12/20 20:00 Urine Ketones Negative (Negati ve) 09/12/20 20:00 Urine Blood 3+ (Negative) H 09/12/20 20:00 Urine Nitrate Negative (Negati ve) 09/12/20 20:00 Urine Bilirubin Neg (Negative) 09/12/20 20:00 Prot Sulfosalicyli c Acd Negative (Negati ve) 09/12/20 20:00 Urine Urobilinogen Norm mg/dL (Negat oc) 09/12/20 20:00 Ur Leukocyte Renee ase Negative (Negati ve) 09/12/20 20:00 Urine RBC 5-10 /hpf (0-2) H 09/12/20 20:00 Urine WBC 0-4 /hpf (0-5) H 09/12/20 20:00 Ur Squamous Epith Cells 0-4 /hpf (0-5) H 09/12/20 20:00 Amorphous Sediment Not Reportable 09/12/20 20:00 Urine Bacteria Trace /hpf (NONE) 09/12/20 20:00 Hyaline Casts 0-4 /lpf H 09/12/20 20:00 Urine Mucus 1+ /hpf 09/12/20 20:00 Impressions Chest X-Ray 09/12/20 17:11 IMPRESSION: 1. Decreased inspiration. Patchy interstitial and alveolar opacities in the mid and lower lungs, increasing in the right lung. Findings are suspicious for worsening pneumonia. Recommend followup chest x-ray to ensure resolution. 2. Incidental/nonacute findings are listed in the report. Chest CTA 09/12/20 18:58 IMPRESSION: 1. Occlusive and nonocclusive pulmonary emboli in the anterior and lateral segmental and subsegmental branches of the right lower lobe pulmonary artery. 2. Ground-glass opacification in the mid and lower lungs that may represent pneumonitis versus versus atypical pneumonia versus the acute phase of interstitial lung disease. Recommend clinical correlation. Recommend followup chest imaging to insure resolution of these findings. 3. Incidental/nonacute findings are listed in the report. COMMENTS: THIS REPORT CONTAINS FINDINGS THAT MAY BE CRITICAL TO PATIENT CARE. The findings were verbally communicated via telephone conference with PAL Esquivel at 7:40 PM CDT on 09/12/2020. The findings were acknowledged and understood. Radiation Dose CTDIVOL = (mGy): DLP = 508.23 (mGy-cm) Microbiology 09/13/20 13:05 Nose MRSA Culture - Final 09/12/20 20:00 Blood Blood Culture - Preliminary NEGATIVE TO DATE 09/12/20 20:06 Blood Blood Culture - Preliminary NEGATIVE TO DATE Vitals: Last Vital Signs Temp 97.6 F 09/15/20 11:11 Pulse 78 09/15/20 15:21 Resp 20 H 09/15/20 15:21 BP 104/78 09/15/20 11:11 Pulse Ox 90 09/15/20 15:21 TS Medications Medications Home Medications escitalopram oxalate 10 mg tablet 20 mg PO DAILY tab 03/14/20 [History Confirmed 09/12/20] aspirin [Adult Aspirin Regimen] 81 mg PO DAILY 07/01/20 [History Confirmed 09/12/20] clopidogrel 75 mg PO DAILY 07/01/20 [History Confirmed 09/12/20] cyclobenzaprine 10 mg PO DAILY PRN 07/01/20 [History Confirmed 09/12/20] albuterol sulfate [ProAir HFA] 2 puff INHALATION Q4H PRN 09/12/20 [History Confirmed 09/12/20] atorvastatin 20 mg PO DAILY 09/12/20 [History Confirmed 09/12/20] atovaquone 1,500 mg PO DAILY 09/12/20 [History Confirmed 09/12/20] nwmxxnvaod-lkdmmuom-rxztcbyzox [Breztri Aerosphere] 2 inh INHALATION BID 09/12/20 [History Confirmed 09/12/20] buspirone 5 mg PO TID 09/12/20 [History Confirmed 09/12/20] fluticasone propionate 2 spray INTRANASAL DAILY 09/12/20 [History Confirmed 09/12/20] ivabradine [Corlanor] 5 mg PO DAILY 09/12/20 [History Confirmed 09/12/20] loratadine 10 mg PO DAILY 09/12/20 [History Confirmed 09/12/20] metoprolol tartrate 25 mg PO BID 09/12/20 [History Confirmed 09/12/20] mirtazapine 15 mg PO BEDTIME 09/12/20 [History Confirmed 09/12/20] nitroglycerin 0.4 mg sublingual tablet 0.4 mg SUBLINGUAL Q5M PRN #25 tab 09/12/20 [Rx Confirmed 09/12/20] polyethylene glycol 3350 [ClearLax] 17 g PO DAILY PRN 09/12/20 [History Confirmed 09/12/20] prednisone 10 mg PO DAILY 09/12/20 [History Confirmed 09/12/20] prednisone 20 mg PO DAILY 09/12/20 [History Confirmed 09/12/20] sennosides-docusate sodium [Senexon-S] 1 tab PO BID 09/12/20 [History Confirmed 09/12/20] umeclidinium-vilanterol [Anoro Ellipta] 1 ea INHALATION DAILY 09/12/20 [History Confirmed 09/12/20] lorazepam [Ativan] 1 mg PO QID PRN 09/13/20 [History Confirmed 09/13/20] Active Medications Apixaban (Apixaban 5 Mg Tablet) 10 mg PO BID@0900,2100 [facility] Stop: 09/21/20 20:59 Last Admin: 09/15/20 10:11 Dose: 10 mg Documented by: Aspirin (Aspirin 81 Mg Ec Tablet) 81 mg PO DAILY [facility] Last Admin: 09/15/20 10:14 Dose: 81 mg Documented by: Atorvastatin Calcium (Atorvastatin 40 Mg Tablet) 20 mg PO DAILY [facility] Last Admin: 09/15/20 10:13 Dose: 20 mg Documented by: Budesonide (Budesonide 0.5 Mg/2 Ml Neb) 0.5 mg INHALATION BID.RESPIRATORY [facility] Last Admin: 09/15/20 07:22 Dose: 0.5 mg Documented by: Buspirone HCl (Buspirone 10 Mg Tablet) 5 mg PO TID [facility] Last Admin: 09/15/20 10:12 Dose: 5 mg Documented by: Clopidogrel Bisulfate (Clopidogrel 75 Mg Tablet) 75 mg PO DAILY [facility] Last Admin: 09/15/20 10:13 Dose: 75 mg Documented by: Escitalopram Oxalate (Escitalopram 10 Mg Tablet) 20 mg PO DAILY [facility] Last Admin: 09/15/20 10:12 Dose: 20 mg Documented by: Fluticasone Propionate (Fluticasone Nasal Novelty 16gm Btl) 2 spray INTRANASAL DAILY [facility] Last Admin: 09/15/20 10:14 Dose: 2 spray Documented by: Ipratropium Merrick (Ipratropium 0.5 Mg/2.5 Ml Neb) 0.5 mg INHALATION Q4H.RESPIRATORY [facility] Last Admin: 09/15/20 15:09 Dose: 0.5 mg Documented by: Levalbuterol HCl (Levalbuterol 0.63 Mg/3 Ml Neb) 0.63 mg INHALATION Q4H.RESPIRATORY [facility] Last Admin: 09/15/20 15:09 Dose: 0.63 mg Documented by: Levofloxacin (Levofloxacin 750 Mg Tablet) 750 mg PO DAILY [facility]; Protocol Last Admin: 09/15/20 10:23 Dose: 750 mg Documented by: Lorazepam (Lorazepam 0.5 Mg Tablet) 0.5 mg PO TID PRN PRN Reason: ANXIETY Last Admin: 09/14/20 20:52 Dose: 0.5 mg Documented by: Methylprednisolone Sodium Succinate (Methylprednisolone Sod Succ 40 Mg/Ml Inj) 40 mg IVP DAILY [facility] Last Admin: 09/15/20 10:23 Dose: 40 mg Documented by: Metoprolol Tartrate (Metoprolol Tartrate 50 Mg Tablet) 50 mg PO 0900,2100 [facility] Last Admin: 09/15/20 10:12 Dose: 50 mg Documented by: Mirtazapine (Mirtazapine 15 Mg Tablet) 15 mg PO BEDTIME [facility] Last Admin: 09/14/20 20:47 Dose: 15 mg Documented by: Nitroglycerin (Nitroglycerin 0.4 Mg Sublingual Tablet) 0.4 mg SUBLINGUAL Q5M PRN PRN Reason: chest pain Non-Formulary Medication (Atovaquone) 1,500 mg PO DAILY [facility] Last Admin: 09/15/20 12:16 Dose: Not Given Documented by: Non-Formulary Medication (Ivabradine [Corlanor]) 5 mg PO Q12H [facility] Last Admin: 09/15/20 05:41 Dose: 5 mg Documented by: Senna/Docusate Sodium (Sennosides-Docusate Tablet) 1 tab PO BID [facility] Last Admin: 09/15/20 10:11 Dose: 1 tab Documented by: Discharge Plan Discharge Patient Disposition: Home Condition: Stable Prescriptions: No Action escitalopram oxalate [Lexapro] 10 mg tablet 20 mg PO DAILY RF: 0 nitroglycerin [Nitrostat] 0.4 mg tablet, sublingual 0.4 mg sublingual Q5M PRN (Reason: chest pain) Qty: 25 RF: 3 cyclobenzaprine 10 mg tablet 10 mg PO DAILY PRN (Reason: Muscle Spasm) RF: 0 clopidogrel 75 mg tablet 75 mg PO DAILY RF: 0 aspirin [Adult Aspirin Regimen] 81 mg tablet,delayed release (DR/EC) 81 mg PO DAILY RF: 0 buspirone 5 mg tablet 5 mg PO TID RF: 0 prednisone 10 mg Tablet 10 mg PO DAILY RF: 0 atorvastatin 20 mg tablet 20 mg PO DAILY RF: 0 Senexon-S 8.6-50 mg tablet 1 tab PO BID RF: 0 mirtazapine 15 mg tablet 15 mg PO BEDTIME RF: 0 ClearLax 17 gram/dose powder 17 g PO DAILY PRN (Reason: Constipation) RF: 0 ProAir HFA 90 mcg/actuation Hfa Aerosol Inhaler 2 puff INHALATION Q4H PRN (Reason: Shortness Of Breath) RF: 0 fluticasone propionate 50 mcg/actuation spray,suspension 2 spray INTRANASAL DAILY RF: 0 loratadine 10 mg tablet 10 mg PO DAILY RF: 0 atovaquone 750 mg/5 mL suspension 1,500 mg PO DAILY RF: 0 metoprolol tartrate 25 mg tablet 25 mg PO BID RF: 0 Corlanor 5 mg tablet 5 mg PO DAILY RF: 0 Anoro Ellipta 62.5-25 mcg/actuation blister with device 1 ea INHALATION DAILY RF: 0 prednisone 20 mg tablet 20 mg PO DAILY RF: 0 Breztri Aerosphere 160-9-4.8 mcg/actuation HFA aerosol inhaler 2 inh inhalation BID RF: 0 Ativan 1 mg Tablet 1 mg PO QID PRN (Reason: Anxiety) RF: 0 Discharge Orders: Transfer Out of Facility (Order); Ordered 09/15/20 Ordered By: Alfonso Jackson Referrals: Daniel Nogueira DO [Primary Care Provider] - Patient Instructions: Opioid Safety Activity Restrictions/Additional Instructions: Patient is to be on Eliquis 10 mg twice daily for 9 more days followed by 5 mg twice daily. He is to be on prednisone 40 mg daily for steroid. Patient will be on atovaquone 1500 mg daily till time he is on steroids. Patient is to be on metoprolol 50 mg twice daily along with ivabradine for his tachycardia. Patient is to follow-up with Dr. Mayfield within next 1 month. Transfer Attestations Time Spent in Transfer Care*: greater than 30 min Specific Discharge Activities: Specific discharge activities: educating patient, discussing with pcp/other providers, discussing with case manage rs/social workers/dc planners, documenting/other paperwork and evaluating patient/reviewing data Status at Transfer: Cognitive status at transfer: cognitively intact , Behavioral status at transfer: cooperative , Functional status at transfer: uses cane/walker Overall status at transfer: patient is progressing back to baseline Quality Metrics Clinical Quality Measures: During this hospital stay, did patient experience: None Coding Level of Care Code Acute Bit Tapper for Chelsea Albret Diagnoses Acute and chronic respiratory failure with hypoxia J96.21 Pulmonary embolism I26.99 Interstitial lung disease J84.9 Pulmonary fibrosis J84.10 Coronary artery disease I25.119 Coronary Disease-Associated Artery/Lesion type: wiyot artery [place] vs. transplanted heart: wiyot heart Associated angina: with unspecified angina Steroid-induced diabetes mellitus E09.9; T38.0X5A Long-term current use of steroids Pneumocystis jiroveci pneumonia B59 Laterality: unspecified laterality Lung location: unspecified part of lung
--- NOTE | 2020-09-15 17:20 | PC.NURSE ---
Pt transferred to [facility] via EMS. Pt had no c/o pain or discomfort at the time of discharge.
== END 2020-09-15 16:46 | DRG 189 ==
LOC: ER 19:40 → ICU 09-13 07:27 → CSU 09-14 18:18
PROVIDERS: Family Medicine; Admitting Provider Internal Medicine; Emergency Provider Emergency Medicine; PCP Family Medicine; Visit Provider Student in an Organized Health Care Education/Training Program
DX: J96.21 Acute and chronic respiratory failure with hypoxia (principal); I26.99 Other pulmonary embolism without acute cor pulmonale; B59 Pneumocystosis; Z90.2 Acquired absence of lung [part of]; Z99.81 Dependence on supplemental oxygen; I25.119 Atherosclerotic heart disease of native coronary artery with unspecified angina pectoris; Z87.01 Personal history of pneumonia (recurrent); M05.9 Rheumatoid arthritis with rheumatoid factor, unspecified; Z89.421 Acquired absence of other right toe(s); J43.9 Emphysema, unspecified; G56.01 Carpal tunnel syndrome, right upper limb; Z87.891 Personal history of nicotine dependence; J84.10 Pulmonary fibrosis, unspecified; E09.9 Drug or chemical induced diabetes mellitus without complications; T38.0X5A Adverse effect of glucocorticoids and synthetic analogues, initial encounter; Z79.51 Long term (current) use of inhaled steroids; Z79.52 Long term (current) use of systemic steroids; Z79.02 Long term (current) use of antithrombotics/antiplatelets
CPT/HCPCS: 36415; 36600; 71045; 71275; 80048; 80051; 80053; 80061; 81001; 82330; 82550; 82805; 83036; 83540; 83550; 83880; 84145; 84439; 84443; 84481; 84484; 85025; 86140; 87040; 87641; 93005; 93306; 93970; 94640; 96365; 96367; 96368; 96372; 97110; 97116; 97162; 99285; J0692; J1650; J1956; J2060; J2543; J2920; J2930; J3370; J7030; J7050; J7614; J7626; J7644; Q9967

== ENCOUNTER 2020-10-11 20:00 | Outpatient (CLI) | payer OTHER, SELFPAY | END 2020-10-11 20:01 | disposition home or self-care (01) | LOC: SLEEP 10-12 08:23 | PROVIDERS: PCP Family Medicine; Visit Provider Internal Medicine Critical Care Medicine | DX: G47.33 Obstructive sleep apnea (adult) (pediatric) (principal) | CPT/HCPCS: 95810 ==

== ENCOUNTER → 2020-11-03 11:48 | Outpatient (BNVA) | payer OTHER, SELFPAY | PROVIDERS: PCP Family Medicine; Visit Provider Internal Medicine Critical Care Medicine | DX: J84.9 Interstitial pulmonary disease, unspecified (principal); J98.4 Other disorders of lung; I25.119 Atherosclerotic heart disease of native coronary artery with unspecified angina pectoris; B59 Pneumocystosis; B44.9 Aspergillosis, unspecified; I26.99 Other pulmonary embolism without acute cor pulmonale; G47.10 Hypersomnia, unspecified; G47.33 Obstructive sleep apnea (adult) (pediatric); Z72.0 Tobacco use | CPT/HCPCS: 80053; 83516; 86431 ==

== ENCOUNTER → 2020-11-14 14:40 | Outpatient (BNVA) | payer OTHER, SELFPAY | PROVIDERS: PCP Family Medicine; Visit Provider Nurse Practitioner Family | DX: R31.9 Hematuria, unspecified (principal); R00.0 Tachycardia, unspecified | CPT/HCPCS: 80053; 85007; 85027 ==

== ENCOUNTER 2020-11-18 08:08 | Outpatient (CLI) | payer OTHER, SELFPAY ==
[2020-11-18 09:35] LABS: Add Urine Microscopic? YES; Bilirubin Urine Neg (Negative); Blood Urine 3+ (Negative); Glucose Urine UA Norm (Normal); Ketones Urine Negative (Negative); Leukocyte Esterase Urine Negative (Negative); Nitrate Urine Negative (Negative); Protein Urine Neg (Negative); Specific Gravity, Urine 1.015 (1.005-1.030); Urine Appearance Clear (CLEAR); Urine Color Yellow (Yellow); Urobilinogen Urine Norm (Negative); pH Urine 6 (5-7)
[2020-11-18 09:36] LABS: Add Urine Culture? Yes; Bacteria Urine TRACE /hpf; Mucus Urine 1+ /hpf; RBC Urine 15-25 /hpf (0-2); WBC Urine RARE /hpf (0-5)
== END 2020-11-18 08:09 | disposition home or self-care (01) ==
PROVIDERS: PCP Family Medicine; Visit Provider Internal Medicine Critical Care Medicine
DX: R31.9 Hematuria, unspecified (principal)
CPT/HCPCS: 81001; 87086

== ENCOUNTER 2020-11-22 08:15 | Outpatient (CLI) | payer OTHER, SELFPAY ==
--- NOTE | 2020-11-22 08:00 | US_ITS ---
WS: [id number] ULTRASOUND RENAL TECHNIQUE: Ultrasound examination of both kidneys. CLINICAL INFORMATION: Hematuria COMPARISON: None. FINDINGS: Tiny nonobstructing renal parenchymal calculi RIGHT: . Right kidney is normal in size and appearance. Echogenicity: Normal. Cortical thickness: 3.1 cm; Normal. Hydronephrosis: None. Perinephric fluid: None. Right kidney measures: 11.1 cm x 7.0 cm x 7.2 cm. LEFT: Left kidney is normal in size and appearance. Echogenicity: Normal. Cortical thickness: 1.5 cm; Normal. Hydronephrosis: None. Perinephric fluid: None. Left kidney measures: 11.8 cm x 6.1 cm x 5.4 cm. Normal visualized aorta. Prevoid bladder volume 78 cc post void bladder volume 1.2 cc diffuse bladder wall thickening. Mild prostate enlargement US/US renal BI with PV bladder IMPRESSION: 1. No hydronephrosis in either kidney. 2. Normal bladder emptying. 3. Mild prostate enlargement. Recommend correlation PSA.
== END 2020-11-22 08:16 | disposition home or self-care (01) ==
LOC: RAD 08:17
PROVIDERS: PCP Family Medicine; Visit Provider Internal Medicine Critical Care Medicine
DX: R31.9 Hematuria, unspecified (principal); N40.0 Benign prostatic hyperplasia without lower urinary tract symptoms
CPT/HCPCS: 76770; 76857

== ENCOUNTER 2020-12-08 08:59 | Outpatient (CLI) | payer OTHER, SELFPAY ==
--- NOTE | 2020-12-08 09:30 | XR_ITS ---
WS: [id number] Exam: XR KUB [id number] Date/Time of Exam: 12/08/2020 9:30 AM Reason For Exam: hematuria No bowel obstruction or free air. 4 mm calcification in the right abdomen apparently represents a kno wn renal stone. No sign of organ enlargement. Regional bony elements are intact. XR/XR KUB [id number] IMPRESSION: 1. 4 mm right abdominal calcification apparently represents a known renal stone . 2. No acute abdominal finding.
== END 2020-12-08 09:00 | disposition home or self-care (01) ==
LOC: RAD 09:01
PROVIDERS: PCP Family Medicine; Visit Provider Urology
DX: R31.9 Hematuria, unspecified (principal)
CPT/HCPCS: 74018; 81003; 88112

== ENCOUNTER 2020-12-29 07:02 | Outpatient (CLI) | payer OTHER, SELFPAY ==
--- NOTE | 2020-12-29 07:06 | XR_ITS ---
WS: [id number] XR KUB [id number] REASON FOR EXAM: CALCULUS OF URETER FINDINGS: Compared to the previous examination of 12/08/2020 the calculus, presumably in the right ureter, is no w located more distally at the L3-L4 level. Previously located at L2-L3 level. No other significant interval change. XR/XR KUB [id number] IMPRESSION: Distal migration of right ureteral calculus as above.
== END 2020-12-29 07:03 | disposition home or self-care (01) ==
PROVIDERS: PCP Family Medicine; Visit Provider Nurse Practitioner Family
DX: N20.1 Calculus of ureter (principal); R31.9 Hematuria, unspecified
CPT/HCPCS: 74018; 81003

== ENCOUNTER 2020-12-29 09:19 | Outpatient (CLI) | payer OTHER, SELFPAY ==
--- NOTE | 2020-12-29 09:30 | CT_ITS ---
WS: [id number] CT ABDOMEN AND PELVIS NONCONTRAST HISTORY: Known LEFT renal stone. Increasing pain. TECHNIQUE: Imaging performed through the abdomen and pelvis. Coronal and sagittal reformats are submi tted. All CT scans at [facility] use at least one of these dose optimization techniques: auto mated exposure control; mA and/or kV adjustment per patient size (includes targeted exams where dose is matched to clinical indication); or iterative reconstruction. DLP: 973.71 mGy.cm COMPARISON: 05/07/2020 Lower thorax: Moderate pulmonary fibrotic changes at the lung bases with honeycombing and bronchial e ctasis. Mild cardiomegaly. Moderate size hiatal hernia. Liver: Normal size liver. No mass or bile duct dilatation. Gallbladder: Normal gallbladder. Pancreas: Normal size and attenuation. Normal pancreatic duct. No pancreatitis or mass. Spleen: Normal. Adrenal glands: Normal. No mass. Right kidney: Mildly edematous RIGHT kidney with mild dilatation of the renal pelvis and proximal ure ter. In the mid ureter there is a 6.5 mm calcification causing the more proximal obstruction. There a re additional nonobstructing calcifications in the RIGHT renal pelvis. Left kidney: Mild perinephric stranding with no obstruction. Nonobstructing calcifications in the abdi al pelvis. Aorta: Moderate atherosclerotic plaque and ectasia. No aneurysm. No free fluid, intraperitoneal air or significant lymphadenopathy. GI tract: Normal appendix. No GI tract obstruction or diverticulosis. Abdominal wall: Fat-containing umbilical hernia. Pelvis: Mild bladder wall thickening is diffuse. May be from prostate gland enlargement and partial o utlet obstruction. Osseous structures: Mild anterior wedging of T11 and L1. CT/CT kidney stone [id number] IMPRESSION: 1. Mild RIGHT hydroureteronephrosis secondary to 6.5 mm calcification in the m id ureter. 2. Bilateral nonobstructing renal calcifications. 3. Advanced pulmonary fibrosis at the lung bases. 4. Moderate hiatal hernia.
== END 2020-12-29 09:20 | disposition home or self-care (01) ==
PROVIDERS: PCP Family Medicine; Visit Provider Urology
DX: N20.1 Calculus of ureter (principal); N13.30 Unspecified hydronephrosis; N20.0 Calculus of kidney; J84.10 Pulmonary fibrosis, unspecified; K44.9 Diaphragmatic hernia without obstruction or gangrene
CPT/HCPCS: 74176

== ENCOUNTER 2020-12-30 18:44 | Emergency (ER) | payer OTHER, SELFPAY ==
[2020-12-30] VITALS (9 sets, daily range): BP systolic 117–133; BP diastolic 79–89; PULSE 83–107; RESP 16–26; TEMP 36.9; O2SAT 95–97
--- NOTE | 2020-12-30 18:46 | XRR_ITS ---
PROCEDURE INFORMATION: Exam: XR Abdomen Exam date and time: 12/30/2020 6:46 PM Age: 65 years old Clinical indication: Pain and condition or disease; Kidney or ureter condition; Calculus (stone) in ureter; Abdominal pain; Other: Right mid to lower; Patient HX: PT has known kidney stone in right ureter. Increased pain today and increased blood. Flank pain TECHNIQUE: Imaging protocol: XR of the abdomen. Views: Frontal supine view of the abdomen. 1 View. COMPARISON: NM XR KUB [id number] 12/29/2020 7:19 AM FINDINGS: Gastrointestinal tract: Colonic constipation is present. Organs: 6 mm calcified density along the expected course of the mid to distal right ureter. This appears to have moved mildly distally when compared to the prior study. Bones/joints: Unremarkable. XR/XR KUB portable [id number] IMPRESSION: 1. 6 mm calcified density along the expected course of the mid to distal right ureter appears to move mildly distally when compared to the prior study. 2. Colonic constipation is present.
--- NOTE | 2020-12-30 19:04 | W.ED.ABDPA2 ---
HPI - Abdominal Pain General: Chief Complaint: Abdominal Pain Stated Complaint: Extreme Pain Kidney Stones Time Seen by Provider: 12/30/20 19:03 History of Present Illness: HPI narrative: 65-year-old male with a known kidney stone in the right ureter, comes in today for increasing pain with inability to control it at home. Patient has no medications for pain except acetaminophen at home. Patient denies any fever. Patient reports no nausea or vomiting. Patient seen Dr. Avila yesterday and was planning on getting a procedure done next week to remove the stone. Patient did report increase in blood in urine starting today. 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 Aspergillosis Atrial tachycardia COPD (chronic obstructive pulmonary disease) Coronary artery disease Cubital tunnel syndrome on right Diabetes Diabetes Emphysema of lung High risk medication use Joint pain P-ANCA titer positive Pneumocystis jiroveci pneumonia Pulmonary nodule Surgical absence of teeth SVT (supraventricular tachycardia) Tobacco abuse Surgical History H/O neck surgery H/O: vasectomy History of ankle surgery History of dental surgery History of facial surgery History of lung biopsy S/P lobectomy of lung Family History Father Cancer Hypertension Mother Diabetes Brother Diabetes Sister Diabetes Father Cancer Prostate Social History Quit status (tobacco): has quit using tobacco Year quit tobacco: 2019 - 2PPD x 40 Years Second hand smoke exposure: No Alcohol intake: current Alcohol intake frequency: holidays/special occasions only Marital status: Number of children: 3 Number of grandchildren: 4 Current occupational status: retired and disabled History of recent travel: No Dian/Confucianism: Zoroastrian Physical Exam Const: COMMON NORMALS: no acute distress and patient oriented x3 GENERAL APPEARANCE: cooperative HENMT: COMMON NORMALS: normocephalic and Normal external nose present HEAD & SCALP: normal to inspection and normocephalic NOSE: Normal external nose present MOUTH: Normal oral and palatal mucosa present Eye: GENERAL EYE: appearance normal, both eyes and all related structures Neck/C-Spine: COMMON NORMALS: full ROM Lymph: LYMPHATIC: no lymphadenopathy noted Chest: COMMONS NORMALS: normal inspection of the chest Resp: COMMON NORMALS: normal respiratory effort EFFORT & INSPECTION: Yes able to speak in complete sentences Cardio: COMMON NORMALS: regular rate and regular rhythm RATE: regular rate RHYTHM: regular rhythm GI: PALPATION: Yes Tenderness to palpation present (GI) Details: RUQ : BLADDER/KIDNEY EXAM: Yes CVA tenderness on the right PENIS: normal penis Back/Pelvis: COMMON NORMALS: thoracic and lumbar spine normal to inspection GENERAL BACK: Yes CVA tenderness Extremity: COMMON NORMALS: normal to inspection Neuro: COMMON NORMALS: patient oriented x3 and moves all extremities Psych: COMMON NORMALS: mental status grossly normal and cooperative Skin: COMMON NORMALS: no rashes or lesions noted GENERAL SKIN EXAM: no rashes or lesions noted Course ED course: 2024, patient's pain is at a 3 out of 10 which is much better. Patient feels comfortable to go home. We will prescribe hydrocodone which patient says he can take. Patient was instructed to monitor for fever and will return as needed. Vital Signs: Vital signs: Vital Signs Temperature 98.4 F 12/30/20 18:57 Pulse Rate 102 H 12/30/20 19:30 Respiratory Rate 21 H 12/30/20 19:30 Blood Pressure 127/86 12/30/20 19:30 Pulse Oximetry 95 12/30/20 19:30 MDM - Abdominal Pain MDM Narrative: Medical decision making narrative: Patient came in for uncontrolled flank pain due to a known kidney stone. Patient denies any fever. On exam patient has some right CVA tenderness and some right lower abdominal tenderness. Bowel sounds are present. Skin is warm and dry. Respirations are even. Vital signs are normal. Differential diagnosis includes renal calculi, urinary tract infection, pyelonephritis. Patient has a large amount of red blood cells in his urine but only a small amount of white blood cells not suggesting infection at this time. Patient is rest of his labs were pretty well on par for his normal. Recommended patient have the hydrocodone as needed for breakthrough pain. Use Tylenol otherwise. Follow-up with primary care and urologist as scheduled. Return to the ER for fever or uncontrolled pain. Patient stated understanding and agreed to plan. Lab Data: Labs: Lab Results 12/30/20 12/30/20 12/30/20 Range/Units 19:25 19:25 19:45 WBC 15.8 H (4.0-10.0) 10^3/ uL RBC 4.58 (4.1-5.3) 10^6/u L Hgb 12.5 (11.7-16.6) g/dL Hct 38.9 L (42.0-52.0) % MCV 84.9 (80-94) fl MCH 27.3 L (28.0-34.0) pg MCHC 32.1 (30.0-36.0) g/dL RDW 14.1 (12.1-15.1) % Plt Count 246 (130-400) 10^3/c mm MPV 8.6 (7.4-10.4) fL Neut % (Auto) 65.3 % Lymph % (Auto) 25.2 % [place] % (Auto) 8.5 % Eos % (Auto) 0.1 % Baso % (Auto) 0.3 % Neut # (Auto) 10.31 H (1.8-7.7) 10^3/u L Lymph # (Auto) 4.0 (0.8-4.8) 10^3/u L [place] # (Auto) 1.4 H (0.2-0.9) 10^3/u L Eos # (Auto) 0.0 (0.0-0.8) 10^3/u L Baso # (Auto) 0.0 (0.0-0.1) 10^3/u L Nucleated RBC % (a uto) 0 % Nucleated RBCs # 0.0 /100WBC Sodium 139 (136-145) mmol/L Potassium 4.3 (3.5-5.1) mmol/L Chloride 104 (98-107) mmol/L Carbon Dioxide 25 (22-29) mmol/L Anion Gap 14.3 (5-19) BUN 24 H (8-23) mg/dL Creatinine 1.2 (0.7-1.2) mg/dL GFR Calculation 61.1 L (90-130) mL/min Glucose 111 (65-115) mg/dL Calculated Osmolal ity 293 (285-295) mOsm/k g Calcium 9.0 (8.5-10.5) mg/dL Total Bilirubin 0.2 (0.15-1.2) mg/dL AST 19 (0-40) U/L ALT 29 (0-41) U/L Alkaline Phosphata se 77 (40-130) IU/L Total Protein 6.2 L (6.6-8.7) g/dL Albumin 3.7 (3.5-5.2) g/dL Globulin 2.5 (1.3-4.6) g/dL Urine Color Yellow (Yellow) Urine Appearance Sl cloudy A (CLEAR) Urine pH 5 (5-7) Ur Specific Gravit y 1.020 (1.005-1.030) Urine Protein 1+ H (Negative) Urine Glucose (UA) Norm (Normal) Urine Ketones 1+ H (Negative) Urine Blood 3+ H (Negative) Urine Nitrate Negative (Negative) Urine Bilirubin Neg (Negative) Urine Urobilinogen Norm (Negative) mg/dL Ur Leukocyte Renee ase Trace H (Negative) Urine RBC Too numerous to c nt H (0-2) /hpf Urine WBC 10-15 H (0-5) /hpf Ur Squamous Epith Cells 0-4 H (0-5) /hpf Amorphous Sediment Not Reportable Urine Bacteria 2+ H (NONE) /hpf Urine Yeast 1+ H /hpf Discharge Plan Discharge Patient Disposition: Home Clinical Impression: Right ureteral calculus Condition: Stable Prescriptions: New hydrocodone-acetaminophen 5-325 mg tablet 1 tab PO Q4H PRN (Reason: pain) Qty: 14 RF: 0 ondansetron 4 mg tablet,disintegrating 4 mg PO Q8H PRN (Reason: nausea and vomiting) Qty: 7 RF: 0 No Action diltiazem HCl 120 mg capsule,extended release 24 hr 120 mg PO DAILY Qty: 90 RF: 3 escitalopram oxalate [Lexapro] 10 mg tablet 20 mg PO DAILY RF: 0 (DME) oxygen-air delivery systems Device See Rx Instructions .Route RF: 0 (DME) [id number] Ventilator 0 .Route .MEDSUPPLY RF: 0 Esbriet 801 mg tablet 801 mg PO TID RF: 0 prednisone 10 mg tablet 10 mg PO DAILY Qty: 90 RF: 0 prednisone 5 mg tablet 5 mg PO DAILY Qty: 30 RF: 0 nitroglycerin [Nitrostat] 0.4 mg tablet, sublingual 0.4 mg sublingual Q5M PRN (Reason: chest pain) Qty: 25 RF: 3 acetaminophen [Tylenol] 325 mg tablet 650 mg PO Q6H PRN (Reason: pain) Qty: 240 RF: 3 atorvastatin 20 mg tablet 20 mg PO DAILY 90 Days Qty: 90 RF: 3 benzonatate [Tessalon Perles] 100 mg capsule 100 mg PO TID PRN (Reason: cough) 90 Days Qty: 270 RF: 2 clopidogrel 75 mg tablet 75 mg PO DAILY 90 Days Qty: 90 RF: 1 melatonin 10 mg tablet 10 mg PO .QHS 90 Days Qty: 90 RF: 3 sulfamethoxazole-trimethoprim [Bactrim DS] 800-160 mg tablet 1 tab PO .COMPLEX 90 Days Qty: 45 RF: 6 sildenafil 25 mg tablet 25 mg PO DAILY PRN (Reason: sexual activity) Qty: 30 RF: 3 Eliquis 5 mg tablet 5 mg PO BID 90 Days Qty: 180 RF: 0 cyclobenzaprine 10 mg tablet 10 mg PO .AT NIGHT RF: 0 ProAir HFA 90 mcg/actuation Hfa Aerosol Inhaler 2 puff INHALATION Q4H PRN (Reason: Shortness Of Breath) RF: 0 fluticasone propionate 50 mcg/actuation spray,suspension 2 spray INTRANASAL DAILY RF: 0 Breztri Aerosphere 160-9-4.8 mcg/actuation HFA aerosol inhaler 2 inh inhalation BID RF: 0 Ativan 1 mg Tablet 1 mg PO QID PRN (Reason: Anxiety) RF: 0 Discharge Orders: Discharge ED (Routine); Ordered 12/30/20 Ordered By: Cristobal Frazier Referrals: Daniel Nogueira DO [Primary Care Provider] - Discharge Diet: Usual diet Discharge Activity: Increase activity as tolerated Patient Instructions: Kidney Stones (ED), Opioid Safety Activity Restrictions/Additional Instructions: Home and rest. Drink plenty of fluids. Use medications as directed. Monitor for fever. Return to the ER for fever or uncontrolled pain. Follow-up with Dr. Avila's office on Friday. Coding Level of Care Code ED Director Translational for Chg Fwd Exam Comprehensive
[2020-12-30] MEDS: HYDROmorphone 1 mg/mL INJ 1 mL IVP (19:19)
[2020-12-30] MEDS: ondansetron 2 mg/ML SDV 2 mL 4 MG IVP (19:19)
[2020-12-30] MEDS: sodium chloride 0.9% 1,000 ML 999 ML IV (19:20)
[2020-12-30 19:39] LABS: Basophils % 0.3 %; Eosinophils % 0.1 %; Hematocrit 38.9 % (42.0-52.0); Hemoglobin 12.5 g/dL (11.7-16.6); Lymphocytes % 25.2 %; Mean Corpuscular HGB Conc 32.1 g/dL (30.0-36.0); Mean Corpuscular Hemoglobin 27.3 pg (28.0-34.0); Mean Corpuscular Volume 84.9 fl (80-94); Mean Platelet Volume 8.6 fL (7.4-10.4); Monocytes # 1.4 10^3/uL (0.2-0.9); Monocytes % 8.5 %; Neutrophils # 10.31 10^3/uL (1.8-7.7); Neutrophils % 65.3 %; Nucleated Red Blood Cells % 0 %; Platelet Count 246 10^3/cmm (130-400); Red Blood Count 4.58 10^6/uL (4.1-5.3); Red Cell Distribution Width 14.1 % (12.1-15.1); White Blood Count 15.8 10^3/uL (4.0-10.0)
[2020-12-30 19:58] LABS: Alanine Aminotransferase 29 U/L (0-41); Albumin Level 3.7 g/dL (3.5-5.2); Alkaline Phosphatase 77 IU/L (40-130); Anion Gap 14.3 (5-19); Aspartate Amino Transferase 19 U/L (0-40); Blood Urea Nitrogen 24 mg/dL (8-23); Carbon Dioxide 25 mmol/L (22-29); Chloride 104 mmol/L (98-107); Creatinine Clr Calc Pharmacy 68.1404; Globulin 2.5 g/dL (1.3-4.6); Glomerular Filtration Rate 61.1 mL/min (90-130); Glucose 111 mg/dL (65-115); Osmolality Calculated 293 mOsm/kg (285-295); Potassium 4.3 mmol/L (3.5-5.1); Sodium 139 mmol/L (136-145); Total Bilirubin 0.2 mg/dL (0.15-1.2); Total Protein 6.2 g/dL (6.6-8.7)
[2020-12-30 20:14] LABS: Add Urine Microscopic? YES; Bilirubin Urine Neg (Negative); Blood Urine 3+ (Negative); Glucose Urine UA Norm (Normal); Ketones Urine 1+ (Negative); Leukocyte Esterase Urine Trace (Negative); Nitrate Urine Negative (Negative); Protein Urine 1+ (Negative); Urine Color Yellow (Yellow); Urobilinogen Urine Norm (Negative); pH Urine 5 (5-7)
[2020-12-30 20:16] LABS: Add Urine Culture? Yes; Bacteria Urine 2+ /hpf; RBC Urine TOO NUMEROUS TO CNT /hpf (0-2); Squamous Epithelial Cell Urine 0-4 /hpf (0-5)
[2020-12-30] MEDS: HYDROcodone-acetaminophen 5-325 mg Tablet 2 TAB PO (20:36)
== END 2020-12-30 20:43 | disposition home or self-care (01) ==
PROVIDERS: Emergency Medicine; Emergency Provider Nurse Practitioner Family; PCP Family Medicine
DX: N20.1 Calculus of ureter (principal); Z79.01 Long term (current) use of anticoagulants; Z79.02 Long term (current) use of antithrombotics/antiplatelets; J44.9 Chronic obstructive pulmonary disease, unspecified; I25.10 Atherosclerotic heart disease of native coronary artery without angina pectoris; E11.9 Type 2 diabetes mellitus without complications; Z87.891 Personal history of nicotine dependence
CPT/HCPCS: 74018; 80053; 81001; 85025; 87086; 96361; 96374; 96375; 99284; J1170; J2405; J7030

== ENCOUNTER 2021-01-04 08:04 | Outpatient (RCR) | payer OTHER, SELFPAY | END 2021-01-11 23:59 | disposition home or self-care (01) | LOC: PULRHB 08:04 | PROVIDERS: PCP Family Medicine; Visit Provider Internal Medicine Critical Care Medicine | DX: J84.9 Interstitial pulmonary disease, unspecified (principal) | CPT/HCPCS: 94618 ==

== ENCOUNTER 2021-01-05 07:17 | Outpatient (CLI) | payer OTHER, SELFPAY ==
--- NOTE | 2021-01-05 07:24 | XR_ITS ---
WS: [id number] KUB, AP view, 01/05/2021 Clinical Data: stone Comparison: KUB, 12/30/2020. Findings: No abnormal intraabdominal masses are seen. There is no dilatated small bowel or evidence of obstruct ion. The calcification adjacent to the right L4 transverse process remains the same. No other calcificatio ns are noted. There is a large amount of fecal material throughout the colon. XR/XR KUB [id number] Impression: No change in probable right mid ureteral calcification.
== END 2021-01-05 07:18 | disposition home or self-care (01) ==
LOC: RAD 07:19
PROVIDERS: PCP Family Medicine; Visit Provider Urology
DX: N20.1 Calculus of ureter (principal)
CPT/HCPCS: 74018; 81003

== ENCOUNTER 2021-01-10 08:25 | Outpatient (CLI) | payer OTHER, SELFPAY ==
--- NOTE | 2021-01-10 08:33 | XR_ITS ---
WS: [id number] Exam: XR KUB [id number] Date/Time of Exam: 01/10/2021 8:40 AM Reason For Exam: ureteral calculus Comparison 01/05/2021. No bowel obstruction or free air. 7 mm calcification seen along the right deniz yeimi region has moved about 3 cm inferiorly and now superimposes the right transverse process of L5. This may be a a ureteral stone. 3 mm calcification superimposes the left kidney suggesting a renal s tone. No sign of organ enlargement. Moderate amount stool in the colon. Regional bony elements are in tact. XR/XR KUB [id number] IMPRESSION: 1. 7 mm calcification along the right paraspinal region overlying the transvers e process of L5 has moved inferiorly since the prior study and may represent a stone in the right ureter. 2. 3 mm calcification seen over the left kidney probably representing a renal s tone. 3. No acute abdominal process.
== END 2021-01-10 08:26 | disposition home or self-care (01) ==
LOC: RAD 08:29
PROVIDERS: PCP Family Medicine; Visit Provider Urology
DX: N20.1 Calculus of ureter (principal)
CPT/HCPCS: 74018; 81003

== ENCOUNTER 2021-01-12 06:00 | Outpatient (RCR) | payer OTHER, SELFPAY | END 2021-02-11 23:59 | disposition home or self-care (01) | LOC: PULRHB 06:00 | PROVIDERS: PCP Family Medicine; Visit Provider Internal Medicine Critical Care Medicine | DX: J84.9 Interstitial pulmonary disease, unspecified (principal) | CPT/HCPCS: G0237; G0238; G0239 ==

== ENCOUNTER 2021-01-21 02:57 | Inpatient (IN) | payer OTHER, SELFPAY ==
[2021-01-21] VITALS (12 sets, daily range): BP systolic 114–135; BP diastolic 65–93; PULSE 69–101; RESP 15–20; TEMP 36.4–36.9; O2SAT 94–97; BMI 25.8
--- NOTE | 2021-01-21 03:14 | CTR_ITS ---
PROCEDURE INFORMATION: Exam: CT Abdomen And Pelvis Without Contrast Exam date and time: 01/21/2021 3:14 AM Age: 65 years old Clinical indication: Abdominal pain; Flank; Left; Additional info: L flank pain TECHNIQUE: Imaging protocol: Computed tomography of the abdomen and pelvis without contrast. Total images: 331 Radiation optimization: All CT scans at this facility use at least one of these dose optimization techniques: automated exposure control; mA and/or kV adjustment per patient size (includes targeted exams where dose is matched to clinical indication); or iterative reconstruction. COMPARISON: CT kidney stone [id number] 05/07/2020 3:03 PM RADIATION DOSE METRICS: Total DLP (mGy-cm): 976.07 FINDINGS: Lungs: Moderate pulmonary fibrotic changes are noted at the lung bases and have shown interval worsening at the left lung base. Liver: Normal. No mass. Gallbladder and bile ducts: Normal. No calcified stones. No ductal dilation. Pancreas: Normal. No ductal dilation. Spleen: Incidental splenic granuloma. Adrenal glands: Normal. No mass. Kidneys and ureters: Multiple nonobstructive right sided kidney stones measure as large as 4 mm. 5 mm left-sided ureterovesicular junction stone. Mild hydroureteronephrosis. 6 mm distal left sided ureteral stone. Mild hydroureter. Stomach and bowel: There are a few colonic diverticuli present but no evidence of diverticulitis. Appendix: No evidence of appendicitis. Intraperitoneal space: Unremarkable. No free air. No significant fluid collection. Vasculature: Unremarkable. No abdominal aortic aneurysm. Lymph nodes: Unremarkable. No enlarged lymph nodes. Urinary bladder: Unremarkable as visualized. Reproductive: Surgical clips noted within the scrotum bilaterally most indicative of prior vasectomy. Bones/joints: Diffuse osteopenia noted. Disc degeneration is most notable at L5/S1. Mild compression fracture at L1 and T11 felt to be chronic. Soft tissues: Unremarkable. CT/CT kidney stone [id number] IMPRESSION: 1. Moderate pulmonary fibrotic changes are noted at the lung bases and have shown interval worsening at the left lung base. 2. Multiple nonobstructive right sided kidney stones measure as large as 4 mm. 3. 5 mm left-sided ureterovesicular junction stone. Mild hydroureteronephrosis. 4. 6 mm distal left sided ureteral stone. Mild hydroureter. Radiation Dose CTDIVOL = (mGy): DLP = 976.07 (mGy-cm)
[2021-01-21 03:25] LABS: Basophils # 0.1 10^3/uL (0.0-0.1); Basophils % 0.5 %; Eosinophils # 0.1 10^3/uL (0.0-0.8); Eosinophils % 0.4 %; Hematocrit 43.1 % (42.0-52.0); Hemoglobin 13.5 g/dL (11.7-16.6); Lymphocytes # 5.3 10^3/uL (0.8-4.8); Lymphocytes % 42.2 %; Mean Corpuscular HGB Conc 31.3 g/dL (30.0-36.0); Mean Corpuscular Hemoglobin 26.9 pg (28.0-34.0); Mean Platelet Volume 8.8 fL (7.4-10.4); Monocytes # 1.1 10^3/uL (0.2-0.9); Monocytes % 8.8 %; Neutrophils # 5.97 10^3/uL (1.8-7.7); Neutrophils % 47.4 %; Nucleated Red Blood Cells % 0 %; Platelet Count 257 10^3/cmm (130-400); Red Blood Count 5.01 10^6/uL (4.1-5.3); Red Cell Distribution Width 14.6 % (12.1-15.1); White Blood Count 12.6 10^3/uL (4.0-10.0)
--- NOTE | 2021-01-21 03:29 | W.ED.BACK ---
HPI - Back Pain/Injury General: Chief Complaint: Back Pain/Injury Stated Complaint: Left side pain Time Seen by Provider: 01/21/21 03:13 History of Present Illness: HPI Narrative: 65-year-old gentleman with a known ureteral calculus on the right. He has minimal pain from this, but does have some hematuria intermittently. He has been having a left-sided flank/abdominal pain on and off as well he notes that it worsened suddenly yesterday, and has been constant since that time. He points to his left lower flank. No vomiting. Intermittent nausea continued hematuria. MD elicited complaint: back pain Pertinent past history: kidney stones Onset (ago): hour(s) Timing: constant and progressively worsening Severity: severe Similar Symptoms Previously: Yes Quality: stabbing Location: left flank Radiation: abdomen Exacerbating factors: none Relieving factors: none Associated symptoms: Reports abdominal pain, hematuria and nausea; Deny chills, change in bowel habits, dysuria, fecal incontinence, fever(s), tingling/numbness/burning, vomiting or weakness Review of Systems Const: Denies: fever(s) or chills GI: Reports: abdominal pain and nausea; Denies: vomiting, fecal incontinence or change in bowel habits : Reports: hematuria; Denies: dysuria PFSH ED PFSH: Medical History Abnormal stress test 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 Aspergillosis Atrial tachycardia COPD (chronic obstructive pulmonary disease) Coronary artery disease Cubital tunnel syndrome on right Diabetes Diabetes Emphysema of lung High risk medication use Joint pain P-ANCA titer positive Pneumocystis jiroveci pneumonia Pulmonary nodule Surgical absence of teeth SVT (supraventricular tachycardia) Tobacco abuse Surgical History H/O neck surgery H/O: vasectomy History of ankle surgery History of dental surgery History of facial surgery History of lung biopsy S/P lobectomy of lung Family History Father , AT AGE 78 Cancer Hypertension Mother Diabetes Brother Diabetes Sister Diabetes Father Cancer Prostate Social History Quit status (tobacco): has quit using tobacco Year quit tobacco: 2020 - 2PPD x 40 Years Second hand smoke exposure: No Alcohol intake: never Marital status: Number of children: 3 Number of grandchildren: 4 Current occupational status: retired and disabled History of recent travel: No Dian/Hoahaoism: Hoahaoism Physical Exam Const: COMMON NORMALS: patient oriented x3 and alert GENERAL APPEARANCE: in distress (in pain); not frail appearing ORIENTATION/CONSCIOUSNESS: Yes awake, Yes oriented to person, Yes oriented to place and Yes oriented to time Chest: COMMONS NORMALS: normal inspection of the chest Resp: COMMON NORMALS: normal respiratory effort, No use of accessory muscles and clear to auscultation bilaterally AUSCULTATION: clear to auscultation bilaterally Cardio: COMMON NORMALS: regular rate and regular rhythm RATE: regular rate RHYTHM: regular rhythm GI: COMMON NORMALS: Normal to inspection, nondistended, normoactive bowel sounds present and Soft to palpation PALPATION: Yes Soft to palpation and Yes Tenderness to palpation present (GI) Details: LLQ : BLADDER/KIDNEY EXAM: Yes CVA tenderness on the left Back/Pelvis: GENERAL BACK: Yes CVA tenderness Neuro: COMMON NORMALS: patient oriented x3 SENSORIUM/ORIENTATION: Yes alert, Yes oriented to person, Yes oriented to place and Yes oriented to time Course Consultations: Consultation #1: avila Time: 07:08 Vital Signs: Vital signs: Vital Signs Temperature 97.5 F L 01/21/21 03:07 Pulse Rate 69 01/21/21 05:43 Respiratory Rate 18 01/21/21 05:43 Blood Pressure 114/84 01/21/21 05:43 Pulse Oximetry 96 01/21/21 05:43 MDM - Back Pain/Injury MDM Narrative: Medical decision making narrative: 65-year-old male with left flank pain. Previously it had right marcelina pain. He has hematuria as well. His white blood cell count is 12.6 creatinine is 0.8. On CT scan he has a left UVJ stone that is 5 mm. There are some confusion of another stone possibly on the right on the report. Spoke with urology. This patient has had fentanyl and Dilaudid, and is still in pain. We will observe in the hospital. Likely OR tomorrow. Lab Data: Labs: Lab Results 01/21/21 01/21/21 01/21/21 03:20 03:20 03:20 WBC 12.6 10^3/uL H 10 ^3/uL (4.0-10.0) RBC 5.01 10^6/uL 10^6 /uL (4.1-5.3) Hgb 13.5 g/dL g/dL (11.7-16.6) Hct 43.1 % % (42.0-52.0) MCV 86.0 fl fl (80-94) MCH 26.9 pg L pg (28.0-34.0) MCHC 31.3 g/dL g/dL (30.0-36.0) RDW 14.6 % % (12.1-15.1) Plt Count 257 10^3/cmm 10^3 /cmm (130-400) MPV 8.8 fL fL (7.4-10.4) Neut % (Auto) 47.4 % % Lymph % (Auto) 42.2 % % [place] % (Auto) 8.8 % % Eos % (Auto) 0.4 % % Baso % (Auto) 0.5 % % Neut # (Auto) 5.97 10^3/uL 10^3 /uL (1.8-7.7) Lymph # (Auto) 5.3 10^3/uL H 10^ 3/uL (0.8-4.8) [place] # (Auto) 1.1 10^3/uL H 10^ 3/uL (0.2-0.9) Eos # (Auto) 0.1 10^3/uL 10^3/ uL (0.0-0.8) Baso # (Auto) 0.1 10^3/uL 10^3/ uL (0.0-0.1) Nucleated RBC % (a uto) 0 % % Nucleated RBCs # 0.0 /100WBC /100W BC Sodium 139 mmol/L mmol/L (136-145) Potassium 4.6 mmol/L mmol/L (3.5-5.1) Chloride 105 mmol/L mmol/L (98-107) Carbon Dioxide 24 mmol/L mmol/L (22-29) Anion Gap 14.6 (5-19) BUN 25 mg/dL H mg/dL (8-23) Creatinine 0.8 mg/dL mg/dL (0.7-1.2) GFR Calculation 97.6 mL/min mL/mi n (90-130) Glucose 95 mg/dL mg/dL (65-115) Calculated Osmolal ity 292 mOsm/kg mOsm/ kg (285-295) Lactate 0.9 mmol/L mmol/L (0.5-2.2) Calcium 9.2 mg/dL mg/dL (8.5-10.5) Total Bilirubin 0.2 mg/dL mg/dL (0.15-1.2) AST 18 U/L U/L (0-40) ALT 25 U/L U/L (0-41) Alkaline Phosphata se 82 IU/L IU/L (40-130) C-Reactive Protein 16.8 mg/L H mg/L (0.0-4.9) Total Protein 6.5 g/dL L g/dL (6.6-8.7) Albumin 3.5 g/dL g/dL (3.5-5.2) Globulin 3.0 g/dL g/dL (1.3-4.6) Lipase 21 U/L U/L (13-60) Urine Color Urine Appearance Urine pH Ur Specific Gravit y Urine Protein Urine Glucose (UA) Urine Ketones Urine Blood Urine Nitrate Urine Bilirubin Urine Urobilinogen Ur Leukocyte Renee ase Urine RBC Urine WBC Ur Squamous Epith Cells Amorphous Sediment Urine Bacteria 01/21/21 03:36 WBC RBC Hgb Hct MCV MCH MCHC RDW Plt Count MPV Neut % (Auto) Lymph % (Auto) [place] % (Auto) Eos % (Auto) Baso % (Auto) Neut # (Auto) Lymph # (Auto) [place] # (Auto) Eos # (Auto) Baso # (Auto) Nucleated RBC % (a uto) Nucleated RBCs # Sodium Potassium Chloride Carbon Dioxide Anion Gap BUN Creatinine GFR Calculation Glucose Calculated Osmolal ity Lactate Calcium Total Bilirubin AST ALT Alkaline Phosphata se C-Reactive Protein Total Protein Albumin Globulin Lipase Urine Color Yellow (Yellow) Urine Appearance Sl cloudy A (CLEAR) Urine pH 5 (5-7) Ur Specific Gravit y 1.020 (1.005-1.030) Urine Protein 1+ H (Negative) Urine Glucose (UA) Norm (Normal) Urine Ketones Negative (Negative) Urine Blood 3+ H (Negative) Urine Nitrate Negative (Negative) Urine Bilirubin 1+ H (Negative) Urine Urobilinogen Norm mg/dL mg/dL (Negative) Ur Leukocyte Renee ase Negative (Negative) Urine RBC Too numerous to c nt /hpf H /hpf (0-2) Urine WBC 0-4 /hpf H /hpf (0-5) Ur Squamous Epith Cells 0-4 /hpf H /hpf (0-5) Amorphous Sediment Not Reportable Urine Bacteria 1+ /hpf H /hpf (NONE) Discharge Plan Discharge Patient Disposition: Admitted As Inpatient Clinical Impression: Ureteropelvic junction calculus Condition: Stable Coding Level of Care Code ED Denial Resolution Specialist for Azg Fwd Exam Detailed
[2021-01-21] MEDS: ondansetron 2 mg/ML SDV 2 mL 4 MG IVP (03:30)
[2021-01-21] MEDS: sodium chloride 0.9% 1,000 ML 999 ML IV (03:30)
[2021-01-21] MEDS: fentaNYL 50 mcg/mL INJ 2mL 75 MCG IVP (03:33)
[2021-01-21 03:40] LABS: Lactate (Lactic Acid level) 0.9 mmol/L (0.5-2.2)
[2021-01-21 03:47] LABS: Add Urine Microscopic? YES; Bilirubin Urine 1+ (Negative); Blood Urine 3+ (Negative); Glucose Urine UA Norm (Normal); Ketones Urine Negative (Negative); Leukocyte Esterase Urine Negative (Negative); Nitrate Urine Negative (Negative); Protein Urine 1+ (Negative); Urine Color Yellow (Yellow); Urobilinogen Urine Norm (Negative); pH Urine 5 (5-7)
[2021-01-21 03:48] LABS: RBC Urine TOO NUMEROUS TO CNT /hpf (0-2); WBC Urine 0-4 /hpf (0-5)
[2021-01-21 03:49] LABS: Add Urine Culture? Yes; Bacteria Urine 1+ /hpf; Squamous Epithelial Cell Urine 0-4 /hpf (0-5)
[2021-01-21 03:51] LABS: Alanine Aminotransferase 25 U/L (0-41); Albumin Level 3.5 g/dL (3.5-5.2); Alkaline Phosphatase 82 IU/L (40-130); Aspartate Amino Transferase 18 U/L (0-40); Blood Urea Nitrogen 25 mg/dL (8-23); C Reactive Protein 16.8 mg/L (0.0-4.9); Calcium 9.2 mg/dL (8.5-10.5); Carbon Dioxide 24 mmol/L (22-29); Chloride 105 mmol/L (98-107); Glomerular Filtration Rate 97.6 mL/min (90-130); Glucose 95 mg/dL (65-115); Lipase 21 U/L (13-60); Osmolality Calculated 292 mOsm/kg (285-295); Sodium 139 mmol/L (136-145); Total Bilirubin 0.2 mg/dL (0.15-1.2); Total Protein 6.5 g/dL (6.6-8.7)
[2021-01-21 03:53] LABS: Anion Gap 14.6 (5-19); Potassium 4.6 mmol/L (3.5-5.1)
[2021-01-21] MEDS: HYDROmorphone 1 mg/mL INJ 1 mL IVP ×5 (05:19→20:30)
--- NOTE | 2021-01-21 08:07 | PM.HP ---
Providers/Chief Complaint Primary Care Provider: Daniel Nogueira DO Chief Complaint: Left side pain History of Present Illness Gregg Babcock is a 65 year old male well-known to me for history of recently diagnosed right mid ureteral stone with mild obstructive changes and atypical left lower quadrant pain of unclear etiology not associated with stone. The right mid ureteral stone had shown some progress on serial KUBs. Situation complicated by pulmonary fibrosis and recent evidence of a respiratory infection. Primary care doctor Mirlande evaluated the patient and wanted to postpone slightly for improvement in his pulmonary status before consideration for treatment of the stone on the right side. He had been evaluated by Dr. Parks for the left lower quadrant pain and no significant pathology was identified. From his perspective the patient was cleared to proceed with urologic intervention as indicated. In addition to the right mid ureteral stone he had a left renal calculus that was nonobstructing. Presented to the emergency department last night with new onset of left renal colic. No symptoms complaining on the right. CT scan demonstrated that the LEFT nonobstructing renal calculus was now in the left distal ureter. The right stone was roughly in the same position possibly a little bit further progressed distally. There was no significant obstructive change on the RIGHT. Pain was quite significant and difficult to control in the emergency department for that reason he was admitted for inpatient evaluation and treatment with anticipation of proceeding to surgical intervention sooner as opposed to later given the fact that he now has bilateral ureteral stones. Creatinine is well preserved at 0.8. Urine was not infected. No acute symptoms related to this chronic pulmonary disease. Denies fever or chills. Plan is to admit, likely endoscopic intervention tomorrow, hospitalist consult if his pulmonary status seems to be worsening. Review of Systems Const: Denies: fever(s) or chills Eyes: Denies: change in vision or blurry vision ENMT: Reports: nasal discharge and post nasal drip Resp: Reports: dyspnea and productive cough GI: Reports: abdominal pain; Denies: vomiting or hematemesis : Reports: flank pain; Denies: dysuria Musc: Reports: back pain (Chronic); Denies: joint redness Skin/Breast: Denies: rash or erythema Neuro: Denies: confusion, Slurred speech present or seizure-like activity Psych: Denies: anxiety or depression Endo: Denies: polyuria or flushing Jamari/Lymph: Reports: easy bruising and easy bleeding Medications/Allergies Home Medications Medication Instructions Recorded Confirmed Last Taken Type escitalopram oxalate 10 mg tablet 20 mg PO DAILY tab 03/14/20 01/21/21 01/20/21 History albuterol sulfate [ProAir HFA] 2 puff INHALATION Q4H PRN 09/12/20 01/21/21 Unknown History hahrzizbfp-nuxymyie-bdllbvizfx 2 inh INHALATION BID 09/12/20 01/21/21 01/20/21 History [Breztri Aerosphere] fluticasone propionate 2 spray INTRANASAL DAILY 09/12/20 01/21/21 Unknown History nitroglycerin 0.4 mg sublingual 0.4 mg SUBLINGUAL Q5M PRN #25 tab 09/12/20 01/21/21 Unknown Rx tablet lorazepam [Ativan] 1 mg PO QID PRN 09/13/20 01/21/21 Unknown History acetaminophen 325 mg tablet 650 mg PO Q6H PRN #240 tab 09/28/20 01/21/21 Unknown Rx [id number] Ventilator 10/02/20 01/21/21 Unknown History oxygen-air delivery systems 10/02/20 01/21/21 Unknown History atorvastatin 20 mg tablet 20 mg PO DAILY 90 Days #90 tab 10/18/20 01/21/21 01/20/21 Rx benzonatate 100 mg capsule 100 mg PO TID PRN 90 Days #270 cap 11/10/20 01/21/21 Unknown Rx clopidogrel 75 mg tablet 75 mg PO DAILY 90 Days #90 tab 11/15/20 01/21/21 01/20/21 Rx sulfamethoxazole 800 1 tab PO .COMPLEX 90 Days #45 tab 11/15/20 01/21/21 Unknown Rx mg-trimethoprim 160 mg tablet diltiazem HCl 120 mg capsule,24 120 mg PO DAILY #90 cap 12/07/20 01/21/21 01/20/21 Rx hr,extended release cyclobenzaprine 10 mg tablet 10 mg PO BEDTIME tab 12/08/20 01/21/21 01/20/21 History pirfenidone 801 mg tablet 801 mg PO TID 12/11/20 01/21/21 01/20/21 History sildenafil 25 mg tablet 25 mg PO DAILY PRN #30 tab 12/12/20 01/21/21 Unknown Rx apixaban 5 mg tablet 5 mg PO BID 90 Days #180 tab 12/15/20 01/21/21 01/20/21 Rx ondansetron 4 mg PO Q8H PRN #7 tab 12/30/20 01/21/21 Unknown Rx hydrocodone 5 mg-acetaminophen 325 1 tab PO Q6H PRN 3 Days #12 tab 01/05/21 01/21/21 Unknown Rx mg tablet prednisone 10 mg tablet 10 mg PO DAILY #90 tab 01/11/21 01/21/21 01/20/21 Rx prednisone 5 mg tablet 5 mg PO DAILY #30 tab 01/11/21 01/21/21 Unknown Rx loratadine 10 mg PO DAILY 01/21/21 01/21/21 01/20/21 History melatonin 10 mg PO BEDTIME 01/21/21 01/21/21 01/19/21 History Allergies Allergy/AdvReac Type Severity Reaction Status Date / Time hydrocodone Allergy Unknown ADR-Itching Verified 01/11/21 12:48 insect venom Allergy ALGY-Difficulty Verified 01/11/21 12:48 Swallowing PFSH Acute PFSH: Medical History Abnormal stress test 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 Aspergillosis Atrial tachycardia COPD (chronic obstructive pulmonary disease) Coronary artery disease Cubital tunnel syndrome on right Diabetes Diabetes Emphysema of lung High risk medication use Joint pain P-ANCA titer positive Pneumocystis jiroveci pneumonia Pulmonary nodule Surgical absence of teeth SVT (supraventricular tachycardia) Tobacco abuse Surgical History H/O neck surgery H/O: vasectomy History of ankle surgery History of dental surgery History of facial surgery History of lung biopsy S/P lobectomy of lung Family History Father , AT AGE 78 Cancer Hypertension Mother Diabetes Brother Diabetes Sister Diabetes Father Cancer Prostate Social History Quit status (tobacco): has quit using tobacco Year quit tobacco: 2020 - 2PPD x 40 Years Second hand smoke exposure: No Alcohol intake: never Marital status: Number of children: 3 Number of grandchildren: 4 Current occupational status: retired and disabled History of recent travel: No Dian/Yazidism: Jainism Vitals/I&O/Wt Last Vital Signs Temp 97.5 F L 01/21/21 03:07 Pulse 94 01/21/21 07:43 Resp 18 01/21/21 07:44 BP 134/93 01/21/21 07:43 Pulse Ox 94 01/21/21 07:43 01/20/21 01/21/21 01/21/21 22:59 06:59 14:59 Intake Total 1000 / 1000 Balance 1000 / 1000 Weight last 48 hrs Weight 180 lb Physical Exam Const: COMMON NORMALS: no acute distress, alert and well nourished GENERAL APPEARANCE: well kempt and well developed ORIENTATION/CONSCIOUSNESS: not confused HENMT: HEAD & SCALP: normocephalic and atraumatic Eye: COMMON NORMALS: conjunctivae normal and no scleral icterus Neck/C-Spine: COMMON NORMALS: full ROM Lymph: LYMPHATIC: no lymphadenopathy noted Resp: COMMON NORMALS: normal respiratory effort EFFORT & INSPECTION: No labored and No Actively coughing OTHER: O2 per nasal cannula Cardio: COMMON NORMALS: regular rate and regular rhythm GI: COMMON NORMALS: Soft to palpation and no masses PALPATION: Yes Tenderness to palpation present (GI) Details: LLQ and LUQ : BLADDER/KIDNEY EXAM: Yes CVA tenderness on the left Extremity: COMMON NORMALS: normal to inspection and full ROM Neuro: COMMON NORMALS: no focal motor deficits SENSORIUM/ORIENTATION: Yes alert Psych: COMMON NORMALS: mental status grossly normal APPEARANCE: Yes grossly normal and Yes well kempt ATTITUDE: Yes calm and Yes engaged Skin: COMMON NORMALS: no rashes or lesions noted and no jaundice Data : 01/21/21 03:20 01/21/21 03:20 A&P Assessment and plan (1) Right ureteral calculus: Does not appear to be significantly obstructive currently. Showing some progress distally in the ureter. Plan for intervention tomorrow Status: Acute (2) Left ureteral calculus: New finding. Stone was previously located in the left interpolar area of the kidney without obstruction. Prior symptoms of atypical left lower quadrant pain and tenderness were not related to the stone. He has more typical left renal colic currently and CT scan radiographic findings consistent with that. We will plan on reevaluation tomorrow with possible bilateral ureteroscopy laser lithotripsy and stent. Strain voids. KUB in the morning. Status: Acute (3) Hydronephrosis, left: Associated with newly diagnosed left distal ureter ureteral stone Status: Acute (4) COPD (chronic obstructive pulmonary disease): Status: Acute Qualifiers: COPD type: emphysema Emphysema type: unspecified Qualified Code(s): J43.9 - Emphysema, unspecified (5) Coronary artery disease: Status: Acute Qualifiers: Associated angina: with unspecified angina Coronary Disease-Associated Artery/Lesion type: [place] artery [place] vs. transplanted heart: [place] heart Qualified Code(s): I25.119 - Atherosclerotic heart disease of [place] coronary artery with unspecified angina pectoris (6) Pulmonary fibrosis: Status: Acute (7) Interstitial lung disease: Status: Acute (8) Acute and chronic respiratory failure with hypoxia: Status: Acute (9) Long-term current use of steroids: Status: Acute Attestations Medical Necessity Statement*: Bilateral ureteral calculi with uncontrolled pain. Coding Level of Care Code Acute Development Editor for [facility] Fw Diagnoses Right ureteral calculus N20.1 Left ureteral calculus N20.1 Hydronephrosis, left N13.30 COPD (chronic obstructive pulmonary disease) J43.9 COPD type: emphysema Emphysema type: unspecified Coronary artery disease I25.119 Associated angina: with unspecified angina Coronary Disease-Associated Artery/Lesion type: [place] artery [place] vs. transplanted heart: [place] heart Pulmonary fibrosis J84.10 Interstitial lung disease J84.9 Acute and chronic respiratory failure with hypoxia J96.21 Long-term current use of steroids
[2021-01-21] MEDS: dilTIAZem ER (24HR) 120 mg Capsule PO (14:22)
[2021-01-21] MEDS: sodium chloride 0.9% 1,000 ML 100 ML IV ×2 (14:23→23:17)
[2021-01-21] MEDS: escitalopram 10 mg Tablet 20 MG PO (20:31)
[2021-01-22] VITALS (11 sets, daily range): BP systolic 86–122; BP diastolic 43–79; PULSE 79–106; RESP 16–25; TEMP 36.4–37.1; O2SAT 93–97
--- NOTE | 2021-01-22 | SCC_ITS ---
Procedure Done: 1. Cystoscopy, BILATERAL retrograde pyelogram 2. BILATERAL ureteroscopy, laser lithotripsy, stents 98.7 seconds of fluoroscopic guidance, for a cumulative dose of 21.32 mGy, was provided to Dr. Avila by the radiology department. C-arm images of the abdomen were saved for the patient's permanent record. [facility]
--- NOTE | 2021-01-22 06:00 | XR_ITS ---
WS: [id number] XR KUB [id number] REASON FOR EXAM: Preop ureteroscopy, bilateral ureteral calculi FINDINGS: Previously identified distal right ureteral calculus at the L5 level is now seen to overlie the mid s acrum at the level of the inferior most aspect of the right sacroiliac joint. No other significant abnormality. XR/XR KUB [id number] IMPRESSION: Further distal migration of right ureteral calculus as above.
--- NOTE | 2021-01-22 07:31 | PM.PN ---
Subjective Subjective: Interval history: Urology follow-up: Hospital day #2 for bilateral ureteral calculi. KUB this morning shows the previously renal located left stone now in about the same position it was yesterday. The right ureteral calculus has progressed slightly. It is now in the true pelvis. Pain is much better controlled than it was in the emergency department. Can have clear liquids this morning. N.p.o. after that. Surgical intervention this afternoon. Anesthesia consult preoperatively. Vitals/I&O/Wt Last Vital Signs Temp 98.2 F 01/22/21 04:00 Pulse 96 01/22/21 04:00 Resp 18 01/22/21 04:00 BP 120/74 01/22/21 04:00 Pulse Ox 94 01/22/21 04:00 01/21/21 01/22/21 01/22/21 22:59 06:59 14:59 Intake Total 240 / 240 890 / 1130 Output Total 1210 / 1535 750 / 2285 Balance -970 / -1295 140 / -1155 Weight last 48 hrs Weight 180 lb Physical Exam Const: COMMON NORMALS: no acute distress, alert and well nourished GENERAL APPEARANCE: well kempt and well developed ORIENTATION/CONSCIOUSNESS: not confused HENMT: HEAD & SCALP: normocephalic Neck/C-Spine: COMMON NORMALS: full ROM Resp: COMMON NORMALS: normal respiratory effort EFFORT & INSPECTION: No labored and No Actively coughing OTHER: O2 per nasal cannula Extremity: COMMON NORMALS: normal to inspection and full ROM Neuro: COMMON NORMALS: no focal motor deficits SENSORIUM/ORIENTATION: Yes alert Psych: COMMON NORMALS: mental status grossly normal APPEARANCE: Yes grossly normal and Yes well kempt ATTITUDE: Yes calm and Yes engaged Data : 01/21/21 03:20 01/21/21 03:20 A&P Assessment and plan (1) Right ureteral calculus: Does not appear to be significantly obstructive currently. Showing some progress distally in the ureter. We will plan for intervention this afternoon. No change on today's KUB Status: Acute (2) Left ureteral calculus: New finding. Stone was previously located in the left interpolar area of the kidney without obstruction. Prior symptoms of atypical left lower quadrant pain and tenderness were not related to the stone. He has more typical left renal colic currently and CT scan radiographic findings consistent with that. KUB this morning showed the stone roughly the same position. Plan on endoscopic treatment bilaterally this afternoon when time is available. Status: Acute (3) Hydronephrosis, left: Associated with newly diagnosed left distal ureter ureteral stone Status: Acute (4) COPD (chronic obstructive pulmonary disease): Status: Acute Qualifiers: COPD type: emphysema Emphysema type: unspecified Qualified Code(s): J43.9 - Emphysema, unspecified (5) Coronary artery disease: Status: Acute Qualifiers: Coronary Disease-Associated Artery/Lesion type: [place] artery [place] vs. transplanted heart: [place] heart Associated angina: with unspecified angina Qualified Code(s): I25.119 - Atherosclerotic heart disease of [place] coronary artery with unspecified angina pectoris (6) Pulmonary fibrosis: Status: Acute (7) Interstitial lung disease: Status: Acute (8) Acute and chronic respiratory failure with hypoxia: Status: Acute (9) Long-term current use of steroids: Status: Acute Attestations Medical Necessity Statement*: Pending surgical treatment this afternoon. Coding Level of Care Code Acute Pole Maker for [facility] Fwd Diagnoses Right ureteral calculus N20.1 Left ureteral calculus N20.1 Hydronephrosis, left N13.30 COPD (chronic obstructive pulmonary disease) J43.9 COPD type: emphysema Emphysema type: unspecified Coronary artery disease I25.119 Coronary Disease-Associated Artery/Lesion type: [place] artery [place] vs. transplanted heart: [place] heart Associated angina: with unspecified angina Pulmonary fibrosis J84.10 Interstitial lung disease J84.9 Acute and chronic respiratory failure with hypoxia J96.21 Long-term current use of steroids
[2021-01-22] MEDS: sulfamethoxazole-trimeth DS 160-800 mg Tablet 1 TAB PO (08:51)
[2021-01-22] MEDS: dilTIAZem ER (24HR) 120 mg Capsule PO (08:51)
[2021-01-22] MEDS: clopidogrel 75 mg Tablet PO (08:51)
[2021-01-22] MEDS: acetaminophen 325 mg Tablet 650 MG PO (08:51)
[2021-01-22] MEDS: apixaban 5 mg Tablet PO ×2 (08:51→17:44)
[2021-01-22] MEDS: predniSONE 10 mg Tablet PO (08:51)
[2021-01-22] MEDS: atorvastatin 40 mg Tablet 20 MG PO (08:51)
[2021-01-22] MEDS: loratadine 10 mg Tablet PO (08:52)
--- NOTE | 2021-01-22 10:15 | PC.CHAP ---
Pastoral Care Encounter/Spiritual Assessment Type of Contact [x] Declined divorce lawyer visit [] Patient/Family/Request visit [] Outpatient visit [] Follow-up visit [] Physician referral [] Code/Alert [] Routine visit [] Staff referral [] Actively dying [] Patient sleeping [] Family support [] [] Out of room [] Palliative care [] [] Receiving care in room [] Pre-surgical visit [] Trauma [] Long length of stay [] ICU visit [] Other: Relational/Emotional Strength [x] Patient feels connected with others/family/visitors/staff [] Distress [] Loneliness/isolation [] Abandonment Spirituality of Patient [x] Person of Dian [x] Attends Mu-Ism of their Dian [x] Believes in Prayer [] Reads Bible or Temple materials [] There are Spiritual issues to be addressed Partner Alliance Manager Interventions [x] Prayer [x] Active listening [x] Non-anxious presence [x] Spiritual/emotional support [] Crisis/trauma care [] Spiritual counseling [] Bereavement support [] Provided bereavement packet [] Provided Bible/devotional materials [] Provided toy/stuffed animal, coloring book to patient or family member [] Provided Communion [] Anointing/[place] [] Salvation [x] Completed spiritual assessment [] Other: Impact on Illness or Injury [] Angry [] Fearful [] Anxious [] Often cries [] Exhaustion [] Unable to work [] Unable to attend sabianist [] Unable to walk/stand [] Unable to read [] Unable to drive [] Unable to eat/drink [] Unable to sleep [] Unable to be with family [] Patient intubated [] Other: Summary Time spent with patient 20 min
[2021-01-22] MEDS: sodium chloride 0.9% 1,000 ML 100 ML IV (11:21)
[2021-01-22] MEDS: sodium chloride 0.9% 1,000 ML 30 ML IV (12:54)
--- NOTE | 2021-01-22 12:56 | ANES.PREANE2 ---
Pre-Anesthetic Assessment Pre-Anesthetic Assessment: Height/Weight: Height 1.78 m Weight 81.647 kg Temp Pulse Resp BP Pulse Ox 98.2 F 79 18 122/79 96 01/22/21 12:40 01/22/21 12:40 01/22/21 12:40 01/22/21 12:40 01/22/21 12:40 Preop Diagnosis: Pulmonary fibrosis Proposed Procedure: Operation Date: 01/22/21 13:00 Proposed Procedures p Cystoscopy BILATERAL: retrograde, ureteroscopy, laser, stent(Bilateral) - Iban Avila MD s Cystoscopy(Not Applicable) - Iban Avila MD s Ureteroscopy(Bilateral) - Iban Avila MD s Ureteral Stent Placement(Bilateral) - Iban Avila MD Familial anesthetic complications: None Was Beta Mary Lou taken within 24 hours: N/A Was Clonidine taken within 24 hours: N/A Last intake: Intake Last Liquid Date 01/22/21 Last Liquid Time 08:20 Social: Social History: No alcohol and No tobacco Comment: former smoker Exam: Pre-Anes Outpt Exam: alert, oriented x 3, clear to auscultation bilaterally and regular rate & rhythm Additional Exam Findings (including area of procedure): RUL gone (referred breath sounds heard) Airway: Cervical ROM: WNL MP: 4 Dentition: Partials Pulmonary: Pulmonary: COPD (6-8 L NC) and Sleep apnea (BIPAP) Comments: Hx R PE, pulmonary fibrosis - seen by Tran 01/11/21. On prednisone 10 mg - will need stress dose steroids CV/HEM: CV/HEM: CAD (stent in june - continuing blood thinners) Comments: hx SVT Metabolic: Metabolic: DM Anesthetic Plan: ASA status: 4 Anesthesia: General Risk of > 500 ml blood loss (7ml/kg in children): No Meds/Allergies Current Medications: Current Medications Generic Name Dose Route Start Last Admin Trade Name Freq PRN Reason Stop Dose Admin Acetaminophen 650 mg 01/22/21 04:36 01/22/21 08:51 Acetaminophen 32 5 Mg Tablet PO 650 mg Q6H PRN Administration pain Apixaban 5 mg 01/22/21 09:00 01/22/21 08:51 Apixaban 5 Mg Ta blet PO 5 mg BID ANISHA Administration Atorvastatin Calci um 20 mg 01/22/21 09:00 01/22/21 08:51 Atorvastatin 40 Mg Tablet PO 20 mg DAILY ANISHA Administration Clopidogrel Bisulf ate 75 mg 01/22/21 09:00 01/22/21 08:51 Clopidogrel 75 M g Tablet PO 75 mg DAILY ANISHA Administration Diltiazem HCl 120 mg 01/21/21 13:30 01/22/21 08:51 Diltiazem Er (24 hr) 120 Mg Capsule PO 120 mg DAILY ANISHA Administration Escitalopram Oxala te 20 mg 01/21/21 21:00 01/21/21 20:31 Escitalopram 10 Mg Tablet PO 20 mg 2100 ANISHA Administration Fluticasone Propio genesis 2 spray 01/22/21 09:00 01/22/21 09:14 Fluticasone Nasa l Sheldon 16gm Btl INTRANASAL Not Given DAILY ANISHA Hydromorphone HCl 1 mg 01/21/21 12:39 01/21/21 20:30 Hydromorphone 1 Mg/Ml Inj 1 Ml IVP 1 mg Q2H PRN Administration pain Sodium Chloride 1,000 mls @ 100 m ls/hr 01/21/21 12:39 01/22/21 11:21 Sodium Chloride 0.9% IV 100 mls/hr .Q10H ANISHA Administration Sodium Chloride 1,000 mls @ 30 ml s/hr 01/22/21 12:45 01/22/21 12:54 Sodium Chloride 0.9% IV 01/23/21 12:44 30 mls/hr .Q24H ANISHA Administration Loratadine 10 mg 01/22/21 09:00 01/22/21 08:52 Loratadine 10 Mg Tablet PO 10 mg DAILY ANISHA Administration Non-Formulary Medi cation 801 mg 01/21/21 12:39 01/22/21 09:14 Pirfenidone [Esb riet] PO Not Given TID ANISHA Prednisone 10 mg 01/22/21 09:00 01/22/21 08:51 Prednisone 10 Mg Tablet PO 02/10/21 08:59 10 mg DAILY ANISHA Administration Trimethoprim/Sulfa methoxazole 1 tab 01/22/21 09:00 01/22/21 08:51 Sulfamethoxazole -Trimeth Ds 160-80 0 Mg Tablet PO 1 tab [id number] ANISHA Administration Protocol PFSH Anesthesia PFSH: Medical History Abnormal stress test 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 Aspergillosis Atrial tachycardia COPD (chronic obstructive pulmonary disease) Coronary artery disease Cubital tunnel syndrome on right Diabetes Diabetes Emphysema of lung High risk medication use Joint pain P-ANCA titer positive Pneumocystis jiroveci pneumonia Pulmonary nodule Surgical absence of teeth SVT (supraventricular tachycardia) Tobacco abuse Surgical History H/O neck surgery H/O: vasectomy History of ankle surgery History of dental surgery History of facial surgery History of lung biopsy S/P lobectomy of lung Family History Father , AT AGE 78 Cancer Hypertension Mother Diabetes Brother Diabetes Sister Diabetes Father Cancer Prostate Social History Quit status (tobacco): has quit using tobacco Year quit tobacco: 2020 - 2PPD x 40 Years Second hand smoke exposure: No Alcohol intake: never Marital status: Number of children: 3 Number of grandchildren: 4 Current occupational status: retired and disabled History of recent travel: No Dian/Oriental Orthodox: Presybeterian Data Anesthesia CBC & Chem 7: 01/21/21 03:20 01/21/21 03:20 Other Labs: Laboratory Results - last 48 hr 01/21/21 01/21/21 01/21/21 03:20 03:20 03:20 WBC 12.6 H RBC 5.01 Hgb 13.5 Hct 43.1 MCV 86.0 MCH 26.9 L MCHC 31.3 RDW 14.6 Plt Count 257 MPV 8.8 Neut % (Auto) 47.4 Lymph % (Auto) 42.2 [place] % (Auto) 8.8 Eos % (Auto) 0.4 Baso % (Auto) 0.5 Neut # (Auto) 5.97 Lymph # (Auto) 5.3 H [place] # (Auto) 1.1 H Eos # (Auto) 0.1 Baso # (Auto) 0.1 Nucleated RBC % (auto) 0 Nucleated RBCs # 0.0 Sodium 139 Potassium 4.6 Chloride 105 Carbon Dioxide 24 Anion Gap 14.6 BUN 25 H Creatinine 0.8 GFR Calculation 97.6 Glucose 95 Calculated Osmolality 292 Lactate 0.9 Calcium 9.2 Total Bilirubin 0.2 AST 18 ALT 25 Alkaline Phosphatase 82 C-Reactive Protein 16.8 H Total Protein 6.5 L Albumin 3.5 Globulin 3.0 Lipase 21 Urine Color Urine Appearance Urine pH Ur Specific [place] Urine Protein Urine Glucose (UA) Urine Ketones Urine Blood Urine Nitrate Urine Bilirubin Urine Urobilinogen Ur Leukocyte Esterase Urine RBC Urine WBC Ur Squamous Epith Cells Amorphous Sediment Urine Bacteria 01/21/21 03:36 WBC RBC Hgb Hct MCV MCH MCHC RDW Plt Count MPV Neut % (Auto) Lymph % (Auto) [place] % (Auto) Eos % (Auto) Baso % (Auto) Neut # (Auto) Lymph # (Auto) [place] # (Auto) Eos # (Auto) Baso # (Auto) Nucleated RBC % (auto) Nucleated RBCs # Sodium Potassium Chloride Carbon Dioxide Anion Gap BUN Creatinine GFR Calculation Glucose Calculated Osmolality Lactate Calcium Total Bilirubin AST ALT Alkaline Phosphatase C-Reactive Protein Total Protein Albumin Globulin Lipase Urine Color Yellow Urine Appearance Sl cloudy A Urine pH 5 Ur Specific [place] 1.020 Urine Protein 1+ H Urine Glucose (UA) Norm Urine Ketones Negative Urine Blood 3+ H Urine Nitrate Negative Urine Bilirubin 1+ H Urine Urobilinogen Norm Ur Leukocyte Esterase Negative Urine RBC Too numerous to cnt H Urine WBC 0-4 H Ur Squamous Epith Cells 0-4 H Amorphous Sediment Not Reportable Urine Bacteria 1+ H Micro: Microbiology 01/21/21 03:36 Urine Culture - Preliminary Urine,Voided Cardiac Studies: No Data to Display
--- NOTE | 2021-01-22 13:30 | SC_ITS ---
WS: [id number] C-arm [place] for Urology REASON FOR EXAM: ureteroscopy, bilateral FINDINGS: Multiple AP images during ureteroscopy and stent placement, bilateral. Injection of contrast into the distal left ureter demonstrates a filling defect congruent with the di stal left ureteral calculus as previously demonstrated on CT scan Transureteral passage of catheter into the left renal pelvis. Contrast injected into the proximal right ureter demonstrates complex distal ureteral calculus congru ent with previously demonstrated distal one third right ureteral calculus demonstrated on CT scan. Transureteral passage of catheter into the right renal pelvis. [place]/C-arm [place] for Urology IMPRESSION: Bilateral obstructive uropathy demonstrated. Bilateral ureteral stent placement.
--- NOTE | 2021-01-22 13:39 | PM.OP ---
Operative Report Date of procedure: January 22, 2021 Pre-op Diagnosis: Bilateral ureteral calculi Post-op diagnosis: same Procedure Done: 1. Cystoscopy, BILATERAL retrograde pyelogram 2. BILATERAL ureteroscopy, laser lithotripsy, stents Specimens removed/disposition: Bilateral ureteral stone fragments Pathology: Bilateral ureteral stone fragments Surgeon: Austin Anesthesia: General Estimated blood loss: Minimal Urine output: Not measured Complications: None Findings: Stones in the expected position based on preoperative KUB this morning. Both treated with laser lithotripsy and fragments removed. Stent left indwelling at the completion of the procedure Condition: stable Disposition: PACU Brief History: Mr. Babcock is a delightful 65-year-old white male who has been followed in the clinic now for about a month with a right mid ureteral stone with minimal symptoms. It was actually diagnosed on CT scan evaluating left lower quadrant pain. The left side was completely normal except for nonobstructing stone up in the midpole area of the kidney on the left. The right-sided stone was mildly obstructive based on hydronephrosis but was not significantly symptomatic anyone to see if he could pass it. Further work-up for his left lower quadrant tenderness was uneventful and yielded no significant pathology. He was admitted to the hospital on 01/21/2021 with complaints of increasing left-sided flank pain and a CT scan in the emergency department revealed that the left renal calculus had dropped down into the ureter was located in the left distal ureter. Due to difficulty controlling his symptoms he was admitted for further evaluation and treatment. Ultimately now with bilateral ureteral calculi it was decided to proceed with endoscopic treatment when KUB this morning failed to show any significant progression of either stone. Procedure: After routine preoperative evaluation examination and obtaining of informed consent he was taken to the operating suite on 01/22/2021 where general anesthesia was administered without difficulty after appropriate timeout was performed, SCDs confirmed to be functioning, preoperative antibiotics administered, beta-nash protocol confirmed. Prepped and draped in usual sterile fashion in dorsolithotomy position paying careful attention to avoiding pressure points. 21 [place] cystoscope with 30 degree lens was introduced into the Riether meatus and advanced into the bladder to videoscopy. The bladder was systematically examined and found to be within normal limits. No stones were seen. An 8 [place] cone-tip catheter was intubated to the left ureteral orifice for left retrograde ureteropyelogram demonstrating normal distal ureter and the stone as a filling defect in the expected position in the left distal ureter. The ureter proximal to that was mildly dilated. A flexible tip guidewire was advanced up the left ureter bypassing the stone in the distal ureter was dilated 15 [place] 4 cm balloon with no waist. The wire was secured to the drapes as a safety wire and a 7.5 [place] offset semirigid ureteroscope was advanced up the right ureter to the level stone which was easily encountered and it was fragment with a 365 ?m thulium superpulse laser fiber and small fragments that were removed with a parachute basket. The area where the stone had been located was quite inflamed. It was decided to leave a stent indwelling. Cystoscope was backloaded over the guidewire. A 6 [place] by 28 cm double-pigtail stent was advanced over the guidewire into appropriate position as confirmed via fluoroscopy and cystoscopy. Attention was then directed to the right side. An 8 [place] cone-tip catheter was then intubated into the right ureteral orifice for right retrograde ureteropyelogram the demonstrated normal distal ureter until a filling defect consistent with a large stone was identified in the expected position. The ureter proximal to that point was mildly dilated. No other filling defects were seen. The course and caliber of the ureter otherwise was normal. Flexible tip guidewire was then advanced up the right ureter bypassing the stone. The distal ureter was dilated with a 15 [place] 4 cm balloon with no waist. The wire was secured to the drapes as a safety wire and a 7 [place] offset semirigid ureteroscope was advanced up the right ureter next to the guidewire. The ureter was slightly tight below the stone but the scope was able to be manipulated to the stone which was then fragmented with 365 ?m thulium superpulse laser fiber into small fragments that were basketed out with a parachute basket. Like the other side there was a lot of inflammation with a stone of been located. A 6 [place] by 28 cm double-pigtail stent was advanced over the guidewire that had been passed through the cystoscope of the right ureter into appropriate position as confirmed via fluoroscopy and cystoscopy. The bladder was drained and the procedure was completed. He tolerated procedure well without complications and was awakened in the operating room and returned to the recovery room in stable condition. PLANS: 1. If he recovers well will likely be able to be discharged this afternoon or evening. Can observe overnight if required based on his other comorbidities. 2. We will plan on leaving the stent in place for approximately 10 days for healing and then removed both in the office on outpatient basis.
[2021-01-22] MEDS: levofloxacin-dextrose 5 % 500 MG/100 ML PREMIX 100 MG IV (13:40)
[2021-01-22] MEDS: iohexol 300 mg/mL 50 mL Btl (OR ONLY) XX (14:03)
--- NOTE | 2021-01-22 15:18 | ANE.PACU2 ---
Inpatient post-anesthesia follow up: Airway intact: Yes Vital signs: Temperature 98.2 F Pulse Rate [Monito r] 101 Pulse Rate 79 Respiratory Rate 18 Blood Pressure [Le ft Arm] 135/91 Blood Pressure 122/79 Pulse Oximetry 96 Oxygen Delivery Me thod Nasal Cannula Oxygen Flow Rate 4 Fraction of Inspir ed Oxygen Hydration adequate: Yes Nausea and vomiting: No Pain level: 2 Mental status: Baseline
--- NOTE | 2021-01-22 16:31 | PM.MISC ---
Miscellaneous Note Purpose of Documentation: Patient had surgery this afternoon. Bilateral ureteroscopy with laser lithotripsy. Due to his multiple comorbidities I recommended he spend the night for close observation. Will change to inpatient status and likely discharge tomorrow.
[2021-01-22] MEDS: HYDROcodone-acetaminophen 5-325 mg Tablet 1 TAB PO ×2 (17:44→23:37)
[2021-01-22] MEDS: phenazopyridine 100 mg Tablet 200 MG PO (17:44)
[2021-01-22] MEDS: dextrose 5%-sod chloride 0.9% 1,000 ML 30 ML IV (17:45)
--- NOTE | 2021-01-22 18:18 | PC.RESP ---
PATIENT IS CURRENTLY ENROLLED IN PULMONARY REHAB.
[2021-01-22] MEDS: escitalopram 10 mg Tablet 20 MG PO (20:09)
[2021-01-22] MEDS: cyclobenzaprine 10 mg Tablet PO (20:09)
[2021-01-22] MEDS: LORazepam 1 mg Tablet PO (23:38)
[2021-01-23 04:00] VITALS: BP 102/60; PULSE 90; RESP 18; TEMP 36.4; O2SAT 95
[2021-01-23] MEDS: HYDROcodone-acetaminophen 5-325 mg Tablet 1 TAB PO (05:32)
[2021-01-23] MEDS: phenazopyridine 100 mg Tablet 200 MG PO (05:32)
--- NOTE | 2021-01-23 06:23 | PC.NURSE ---
SHIFT SUMMARY Has had a good night. Has received po Hydrocodone X2 for pain. Says most of pain is in his groin & penis. Voiding per urinal and urinating between 100-200ml at a time. Urine has had some hematuria and with the orange from the Pyridium color has looked orange/reddish/brown. Some fine sediment noted.IV fluids infusing at 30ml/hr rate. Did receive po Ativan to help with sleep tonight. Says he should get to go home today
--- NOTE | 2021-01-23 07:49 | P.DS_ITS ---
Discharge Providers Date of Admission: 01/21/21 12:39 Date of Discharge: January 23, 2021 Attending Provider at Admission: Iban Avila MD Attending Provider at Discharge: Iban Avila MD Primary Care Provider: Daniel Nogueira DO Diagnoses at Discharge Discharge Diagnosis (1) Right ureteral calculus: Status: Resolved (2) Left ureteral calculus: Status: Resolved (3) Hydronephrosis, left: Status: Resolved (4) COPD (chronic obstructive pulmonary disease): Status: Chronic Qualifiers: COPD type: emphysema Emphysema type: unspecified Qualified Code(s): J43.9 - Emphysema, unspecified (5) Coronary artery disease: Status: Chronic Qualifiers: Coronary Disease-Associated Artery/Lesion type: [place] artery [place] vs. transplanted heart: [place] heart Associated angina: with unspecified angina Qualified Code(s): I25.119 - Atherosclerotic heart disease of [place] coronary artery with unspecified angina pectoris (6) Pulmonary fibrosis: Status: Chronic (7) Interstitial lung disease: Status: Chronic (8) Acute and chronic respiratory failure with hypoxia: Status: Chronic (9) Long-term current use of steroids: Status: Chronic Reason for Visit Reason for Visit: Left side pain Hospital Course Hospital Course He was diagnosed with bilateral ureteral calculi in the emergency department during work-up for left renal colicky symptoms. The stone in the left distal ureter had been previously identified in the left kidney and was nonobstructing. The right ureteral calculus which had been followed on outpatient basis had progressed down into the distal ureter. Because of the risk associated with bilateral ureteral calculi was decided to go ahead and treat and forego any further conservative therapy. On 01/22/2021 he underwent bilateral ureteroscopic laser lithotripsy of stones with stent placement and did well. Postoperatively there were no untoward events and he was discharged the morning of postoperative day #1 in stable condition. He was maintained overnight postop due to his multiple comorbidities including pulmonary problems outlined above in the problem list. Plans were made to follow-up mid next week for stent removal in the clinic. I encouraged him to check with Dr. Nogueira to see if there is any additional medications necessary for his productive cough. Encouraged him to call if he has any concerns or questions regarding his urologic condition. Discharge Data Data Completed and Pending: Completed Studies During Hospitalization Category Date Time Status CT kidney stone 7 [id number] Urgent Cat Scan 01/21/21 03:14 Completed XR KUB [id number] Rout ine Exams 01/22/21 06:00 Completed Pending at discharge Category Date Time Status Stone Analysis Ro utine Lab 01/22/21 15:01 Ordered Urine Culture Sta t Lab 01/21/21 03:36 Results Pathology: Surgic al [PTH] Routine Pth 01/22/21 15:18 Ordered Vitals: Last Vital Signs Temp 97.6 F 01/23/21 04:00 Pulse 90 01/23/21 04:00 Resp 18 01/23/21 04:00 BP 102/60 01/23/21 04:00 Pulse Ox 95 01/23/21 04:00 Discharge Plan Discharge Patient Disposition: Home Condition: Stable Prescriptions: Continued diltiazem HCl 120 mg capsule,extended release 24 hr 120 mg PO DAILY Qty: 90 RF: 3 prednisone 10 mg tablet 10 mg PO DAILY Qty: 90 RF: 0 prednisone 5 mg tablet 5 mg PO DAILY Qty: 30 RF: 0 hydrocodone-acetaminophen 5-325 mg tablet 1 tab PO Q6H PRN (Reason: pain) 3 Days Qty: 12 RF: 0 escitalopram oxalate [Lexapro] 10 mg tablet 20 mg PO DAILY RF: 0 (DME) oxygen-air delivery systems Device See Rx Instructions .Route RF: 0 (DME) [id number] Ventilator 0 .Route .MEDSUPPLY RF: 0 Esbriet 801 mg tablet 801 mg PO TID RF: 0 nitroglycerin [Nitrostat] 0.4 mg tablet, sublingual 0.4 mg sublingual Q5M PRN (Reason: chest pain) Qty: 25 RF: 3 acetaminophen [Tylenol] 325 mg tablet 650 mg PO Q6H PRN (Reason: pain) Qty: 240 RF: 3 atorvastatin 20 mg tablet 20 mg PO DAILY 90 Days Qty: 90 RF: 3 benzonatate [Tessalon Perles] 100 mg capsule 100 mg PO TID PRN (Reason: cough) 90 Days Qty: 270 RF: 2 clopidogrel 75 mg tablet 75 mg PO DAILY 90 Days Qty: 90 RF: 1 sulfamethoxazole-trimethoprim [Bactrim DS] 800-160 mg tablet 1 tab PO .COMPLEX 90 Days Qty: 45 RF: 6 sildenafil 25 mg tablet 25 mg PO DAILY PRN (Reason: sexual activity) Qty: 30 RF: 3 Eliquis 5 mg tablet 5 mg PO BID 90 Days Qty: 180 RF: 0 cyclobenzaprine 10 mg tablet 10 mg PO BEDTIME RF: 0 albuterol sulfate [ProAir HFA] 90 mcg/actuation Hfa Aerosol Inhaler 2 puff INHALATION Q4H PRN (Reason: Shortness Of Breath) RF: 0 fluticasone propionate 50 mcg/actuation spray,suspension 2 spray INTRANASAL DAILY RF: 0 Breztri Aerosphere 160-9-4.8 mcg/actuation HFA aerosol inhaler 2 inh inhalation BID RF: 0 lorazepam [Ativan] 1 mg Tablet 1 mg PO QID PRN (Reason: Anxiety) RF: 0 melatonin 10 mg tablet 10 mg PO BEDTIME RF: 0 loratadine 10 mg Tablet 10 mg PO DAILY RF: 0 ondansetron 4 mg tablet,disintegrating 4 mg PO Q8H PRN (Reason: nausea and vomiting) Qty: 7 RF: 0 Discharge Orders: Discharge Order (Routine); Ordered 01/23/21 Ordered By: Iban Avila Referrals: Daniel Nogueira DO [Primary Care Provider] - Discharge Diet: Usual diet Discharge Activity: Increase activity as tolerated Patient Instructions: Opioid Safety Activity Restrictions/Additional Instructions: 1. The ureteral stones bilaterally were treated with laser lithotripsy and all the substantial fragments were removed. He still may passed some sand. 2. Internal ureteral stents were left indwelling at the completion of the procedure. These need to be removed. We will plan on removing them mid next week. Until then you can expect frequency, urgency, bloody urine, flank pain with voiding at times. All of those symptoms well improve and resolve after stent removal. 3. Please follow-up with Dr. Nogueira regarding your pulmonary issues and whether or not he wants to continue antibiotics. 4. Call if you have any concerns or questions regarding symptoms. Discharge Attestations Time Spent in Discharge Care*: less than 30 min Status at Discharge: Cognitive status at discharge: cognitively intact , Behavioral status at discharge: cooperative , Quality Metrics Clinical Quality Measures During this hospital stay, did patient experience: None Coding Level of Care Code Acute Chg FW DC note Diagnoses Right ureteral calculus N20.1 Left ureteral calculus N20.1 Hydronephrosis, left N13.30 COPD (chronic obstructive pulmonary disease) J43.9 COPD type: emphysema Emphysema type: unspecified Coronary artery disease I25.119 Coronary Disease-Associated Artery/Lesion type: [place] artery [place] vs. transplanted heart: [place] heart Associated angina: with unspecified angina Pulmonary fibrosis J84.10 Interstitial lung disease J84.9 Acute and chronic respiratory failure with hypoxia J96.21 Long-term current use of steroids
[2021-01-23 08:00] VITALS: BP 106/74; PULSE 86; RESP 17; TEMP 36.6; O2SAT 90
[2021-01-23] MEDS: atorvastatin 40 mg Tablet 20 MG PO (08:40)
[2021-01-23] MEDS: apixaban 5 mg Tablet PO (08:40)
[2021-01-23] MEDS: clopidogrel 75 mg Tablet PO (08:40)
[2021-01-23] MEDS: dilTIAZem ER (24HR) 120 mg Capsule PO (08:40)
[2021-01-23] MEDS: predniSONE 10 mg Tablet PO (08:40)
[2021-01-23] MEDS: loratadine 10 mg Tablet PO (08:40)
[2021-01-23] MEDS: fluticasone nasal spray 16gm Btl 2 SPRAY INTRANASAL (08:42)
[2021-01-23 10:44] VITALS: BP 106/74; PULSE 86; RESP 17; TEMP 36.6; O2SAT 90
--- NOTE | 2021-01-25 10:35 | PC.SOCIAL ---
discharge follow up call made, spoke with patient. patient reports some pain and blood clots in his urine. patient is taking hydrocodone with relief from pain. discussed with patient that blood clots are normal after having an stent placed and cystoscopy. patient verbalized understanding. pt has follow up appointment tomorrow w dr. perry and on 01-[address] johnson. patient is aware of both appointments. patient denies any questions or concerns.
== END 2021-01-23 10:45 | disposition home or self-care (01) | DRG 661 ==
LOC: ER 10:04 → MEDSURG 01-22 03:18
PROVIDERS: Admitting Provider Urology; Emergency Provider Emergency Medicine; PCP Family Medicine; Visit Provider Urology
PROC: 0TJB8ZZ Inspection of Bladder, Via Natural or Artificial Opening Endoscopic (ICD-10-PCS; CPT 52000; 2021-01-22 13:00)
PROC: 0TJ98ZZ Inspection of Ureter, Via Natural or Artificial Opening Endoscopic (ICD-10-PCS; CPT 52351; 2021-01-22 13:00)
PROC: 0TC78ZZ Extirpation of Matter from Left Ureter, Via Natural or Artificial Opening Endoscopic (ICD-10-PCS; CPT 50605; 2021-01-22 13:00)
PROC: 0TC78ZZ Extirpation of Matter from Left Ureter, Via Natural or Artificial Opening Endoscopic (ICD-10-PCS; CPT 74420; 2021-01-22 13:00)
PROC: 0TC78ZZ Extirpation of Matter from Left Ureter, Via Natural or Artificial Opening Endoscopic (ICD-10-PCS; 2021-01-22 13:00)
DX: N13.2 Hydronephrosis with renal and ureteral calculous obstruction (principal); J43.9 Emphysema, unspecified; I25.10 Atherosclerotic heart disease of native coronary artery without angina pectoris; E11.9 Type 2 diabetes mellitus without complications; Z87.01 Personal history of pneumonia (recurrent); Z87.891 Personal history of nicotine dependence; Z90.2 Acquired absence of lung [part of]; J84.10 Pulmonary fibrosis, unspecified; Z79.52 Long term (current) use of systemic steroids; Z99.81 Dependence on supplemental oxygen; Z79.51 Long term (current) use of inhaled steroids; Z79.891 Long term (current) use of opiate analgesic
CPT/HCPCS: 74018; 74176; 76000; 80053; 81001; 82365; 83605; 83690; 85025; 86140; 87086; 88300; 94664; 96361; 96374; 96375; 96376; 99285; C2625; G0378; J1100; J1170; J1956; J2405; J2704; J2710; J3010; J3490; J7030; J7512

== ENCOUNTER 2021-01-26 09:23 | Outpatient (CLI) | payer OTHER, SELFPAY ==
--- NOTE | 2021-01-26 08:00 | XR_ITS ---
WS: [id number] XR KUB [id number] REASON FOR EXAM: URETERAL CALCULUS FINDINGS: On the abdomen film of 01/22/2021 there are actually bilateral ureteral calculi. Right ureteral calcu cosmo overlying the sacrum and smaller calculus in the distal left ureter near the ureterovesical junct ion. Both demonstrated on CT scan of 01/21/2021 There are now bilateral ureteral stents in proper position. No left intrarenal calculi are identified . The small right intrarenal calculi (seen on the CT scan of 01/22/2021) are not readily identified on the current examination. No calculi overlying the pelvis. No calculi along the course of the ureteral stents. XR/XR KUB [id number] IMPRESSION: Previous bilateral ureteral calculi no longer identifiable.
--- NOTE | 2021-01-26 13:15 | XR_ITS ---
WS: [id number] XR chest 2V* [id number] REASON FOR EXAM: SOB FINDINGS: The current chest x-ray is very similar to the previous examination of 09/12/2020 with coarse interstit ial changes seen in both lower and midlung lie[place]man. A CT scan of the chest at that time demonstrated t he findings of congestive heart failure superimposed on severe underlying interstitial lung disease a nd honeycombing in the lower lungs. No other significant findings are noted. XR/XR chest 2V* [id number] IMPRESSION: The chest is similar in appearance to the previous examination. This same appea alex has been seen on multiple previous chest x-rays and CTs with differing de grees of severity. Again this would seem to represent congestive failure superi mposed on severe underlying lung disease.
== END 2021-01-26 09:24 | disposition home or self-care (01) ==
PROVIDERS: PCP Family Medicine; Referring Provider Internal Medicine Critical Care Medicine; Visit Provider Urology
DX: N20.1 Calculus of ureter (principal); R06.02 Shortness of breath
CPT/HCPCS: 71046; 74018

== ENCOUNTER 2021-02-02 08:58 | Outpatient (CLI) | payer OTHER, SELFPAY ==
--- NOTE | 2021-02-02 09:09 | XR_ITS ---
WS: [id number] KUB, AP view, 02/02/2021 Clinical Data: RIGHT FLANK PAIN Comparison: KUB, 01/26/2021. Findings: Bilateral ureteral calculi are seen. No renal calculi are seen. There are no calculi adjacent to the stents. XR/XR KUB [id number] Impression: 1. Bilateral ureteral ureteral stents. 2. Ureteral calculi not seen.
== END 2021-02-02 08:59 | disposition home or self-care (01) ==
LOC: RAD 09:04
PROVIDERS: PCP Family Medicine; Visit Provider Urology
DX: R10.9 Unspecified abdominal pain (principal); Z96.0 Presence of urogenital implants; R31.9 Hematuria, unspecified
CPT/HCPCS: 74018; 81003

== ENCOUNTER 2021-02-12 06:00 | Outpatient (RCR) | payer OTHER, SELFPAY | END 2021-03-13 23:59 | disposition home or self-care (01) | LOC: PULRHB 06:00 | PROVIDERS: PCP Family Medicine; Visit Provider Internal Medicine Critical Care Medicine | DX: J84.9 Interstitial pulmonary disease, unspecified (principal) | CPT/HCPCS: G0237; G0238; G0239 ==

== ENCOUNTER 2021-03-14 06:00 | Outpatient (RCR) | payer OTHER, SELFPAY | END 2021-04-13 23:59 | disposition home or self-care (01) | LOC: PULRHB 06:00 | PROVIDERS: PCP Family Medicine; Visit Provider Internal Medicine Critical Care Medicine | DX: J84.9 Interstitial pulmonary disease, unspecified (principal) | CPT/HCPCS: G0237; G0238; G0239 ==

== ENCOUNTER 2021-03-15 11:49 | Emergency (ER) | payer OTHER, SELFPAY ==
[2021-03-15 11:58] VITALS: BP 95/64; PULSE 112; RESP 20; TEMP 36.8; O2SAT 95; BMI 24.3
[2021-03-15 12:20] VITALS: O2SAT 97
--- NOTE | 2021-03-15 12:26 | XR_ITS ---
WS: [id number] Portable AP upright chest, 03/15/2021 Clinical Data: syncope Comparison: PA and lateral chest, 01/26/2021. Findings: There are bilateral interstitial basilar pulmonary changes which remain the same. The heart is enlarged. The upper lobes are relatively clear. The aortic arch and descending thoracic aorta robe w tortuosity. No pneumonia or pneumothorax is seen. There are monitor leads on the chest wall. There is a posterior cervical fusion. XR/XR chest 1V portable [id number] Impression: 1. Chronic basilar pulmonary interstitial changes. 2. Cardiomegaly and atherosclerosis.
--- NOTE | 2021-03-15 12:26 | CT_ITS ---
WS: [id number] CT HEAD TECHNIQUE: Noncontrast CT of the head obtained from the skullbase to the vertex. CLINICAL INFORMATION: fall, head injury, on blood thinner COMPARISON: None. DLP: 979.[address] scans at [facility] use at least one of these dose optimization techniques: automated e xposure control; mA and/or kV adjustment per patient size (includes targeted exams where dose is matc hed to clinical indication); or iterative reconstruction. FINDINGS: No evidence of intracranial hemorrhage or mass effect. Ventricular system and basal cisterns are mcfadden nt. Mild small vessel changes with moderate parenchymal volume loss. No extra-axial fluid collections . No evidence of mass or mass effect. Normal tran-white differentiation. Mild mucosal thickening in the maxillary sinuses and ethmoid air cells. Mastoid air cells are well ae rated.Normal visualized soft tissues. CT/CT head wo con* [id number] IMPRESSION: 1. No evidence of intracranial hemorrhage or mass effect. 2. Mild small vessel changes. Moderate parenchymal volume loss. 3. No acute intracranial findings.
[2021-03-15 12:30] VITALS: BP 104/76; PULSE 101; RESP 19; O2SAT 97
--- NOTE | 2021-03-15 12:41 | ED_ITS ---
Documented by User: LANDY Tate 03/15/21 16:23 HPI - Syncope General: Chief Complaint: Syncope Stated Complaint: FACIAL LACS:SYNCOPAL EPISODE,FELL/HIT HEAD ON DOOR Time Seen by Provider: 03/15/21 12:19 History of Present Illness: HPI narrative: Patient arrives via POV. Patient's daughter brought him in. Patient states that he got up to answer door when his neighbor knocked on it and when he opened the door that he then woke up laying on the ground his neighbor talking to him. Patient hit his face on the door and has a couple abrasions. Patient said he was feeling fine has not been sick. Patient has been nauseous since then the fall. Patient was incontinent with syncopal episode. Patient has increased urination since being placed on Lasix yesterday has vomited a couple times. Denies any chest pain shortness of breath. 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 Patient also seen by telehealth yesterday for an upper respiratory infection and placed on antibiotic and prednisone. Had a recent stent 1 year ago placed. Said he had a headache earlier after falling but does not have a headache now. Is able ambulate without difficulty . He is worried may be got up too quickly from his chair to go answer the door. complaint: loss of consciousness Onset (ago): hour(s) Prodromal symptoms: none Witnessed: Yes - by Other (Neighbor) Context: standing up Injuries sustained associated with event: face Associated symptoms: Reports nausea and other (Nausea); Deny abdominal pain, chest pain, fever(s) or headache(s) History: history of CAD Treatments prior to arrival: none Review of Systems Const: Denies: fever(s), chills or body aches Eyes: Denies: change in vision or blurry vision ENMT: Denies: throat pain or nasal congestion Card: Reports: syncope (X1 after getting up from a chair this morning); Denies: chest pain or dyspnea on exertion Resp: Denies: dyspnea, productive cough or non-productive cough GI: Reports: nausea and vomiting; Denies: abdominal pain : Denies: difficulty urinating Musc: Denies: extremity pain Skin/Breast: Reports: other (Abrasion bruising to face); Denies: rash Neuro: Denies: headache(s) Psych: Denies: anxiety or depression Jamari/Lymph: Denies: easy bruising PFSH ED PFSH: Medical History Abnormal stress test 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 Aspergillosis Atrial tachycardia COPD (chronic obstructive pulmonary disease) Coronary artery disease Cubital tunnel syndrome on right Diabetes Diabetes Emphysema of lung Gross hematuria High risk medication use Joint pain P-ANCA titer positive Pneumocystis jiroveci pneumonia Pulmonary nodule Surgical absence of teeth SVT (supraventricular tachycardia) Tobacco abuse Surgical History H/O neck surgery H/O: vasectomy History of ankle surgery History of dental surgery History of facial surgery History of lung biopsy S/P lobectomy of lung Family History Father , AT AGE 78 Cancer Hypertension Mother Diabetes Brother Diabetes Sister Diabetes Father Cancer Prostate Social History Quit status (tobacco): has quit using tobacco Year quit tobacco: 2020 - 2PPD x 40 Years Second hand smoke exposure: No Alcohol intake: never Marital status: Number of children: 3 Number of grandchildren: 4 Current occupational status: retired and disabled History of recent travel: No Dian/Voodoo: Buddhist Physical Exam Const: COMMON NORMALS: no acute distress, average body habitus and patient oriented x3 HENMT: COMMON NORMALS: normocephalic HEAD & SCALP: normal to inspection and normocephalic FACE & SINUS: normal facial exam Eye: COMMON NORMALS: conjunctivae normal GENERAL EYE: appearance normal, both eyes and all related structures CONJUNCTIVA: Yes conjunctivae normal Neck/C-Spine: COMMON NORMALS: no JVD Chest: COMMONS NORMALS: normal inspection of the chest Resp: COMMON NORMALS: normal respiratory effort and clear to auscultation bilaterally AUSCULTATION: clear to auscultation bilaterally Cardio: COMMON NORMALS: no JVD, regular rate and regular rhythm RATE: regular rate RHYTHM: regular rhythm GI: COMMON NORMALS: Normal to inspection, nondistended, normoactive bowel sounds present Extremity: COMMON NORMALS: normal to inspection and full ROM Neuro: COMMON NORMALS: patient oriented x3 Skin: NARRATIVE SKIN EXAM: Bruise to left cheek area and has abrasion to the above the nasal bridge. Course Vital Signs: Vital signs: Vital Signs Temperature 98.2 F 03/15/21 11:58 Pulse Rate 91 03/15/21 13:00 Respiratory Rate 25 H 03/15/21 13:00 Blood Pressure 104/76 03/15/21 13:00 Pulse Oximetry 99 03/15/21 13:00 MDM - Syncope MDM Narrative: Medical decision making narrative: Patient presents here from home by POV with complaint of syncopal episode after getting up quickly from a chair this morning. Patient fell and struck the door frame and has abrasion to his face. Patient has cardiac history. I believe patient's syncopal episode related to fluid loss. Patient was started on Lasix yesterday and took 1 yesterday afternoon and 1 this morning along with potassium his diltiazem was i ncreased to 240 mg which she took yesterday and this morning and was started on prednisone and Levaquin also yesterday which she took. Patient's anion gap was 21. BUN/creatinine look fine. Patient was advised to stop those medications follow-up with his primary care provider and his steel rule die maker he can continue on the diltiazem. Leave he had a fluid deficit. Chest x-ray read did not reveal any effusion or any change from previous chest x-ray EKG look normal labs as described. CT of the head was normal no signs of intercranial hemorrhage. Lab Data: Labs: Lab Results 03/15/21 03/15/21 03/15/21 12:12 12:12 12:12 WBC 10.3 10^3/uL H 10 ^3/uL (4.0-10.0) RBC 4.61 10^6/uL 10^6 /uL (4.1-5.3) Hgb 12.5 g/dL g/dL (11.7-16.6) Hct 40.1 % L % (42.0-52.0) MCV 87.0 fl fl (80-94) MCH 27.1 pg L pg (28.0-34.0) MCHC 31.2 g/dL g/dL (30.0-36.0) RDW 15.0 % % (12.1-15.1) Plt Count 249 10^3/cmm 10^3 /cmm (130-400) MPV 9.3 fL fL (7.4-10.4) Neut % (Auto) 78.8 % % Lymph % (Auto) 14.7 % % [place] % (Auto) 5.1 % % Eos % (Auto) 0.2 % % Baso % (Auto) 0.4 % % Neut # (Auto) 8.12 10^3/uL H 10 ^3/uL (1.8-7.7) Lymph # (Auto) 1.5 10^3/uL 10^3/ uL (0.8-4.8) [place] # (Auto) 0.5 10^3/uL 10^3/ uL (0.2-0.9) Eos # (Auto) 0.0 10^3/uL 10^3/ uL (0.0-0.8) Baso # (Auto) 0.0 10^3/uL 10^3/ uL (0.0-0.1) Nucleated RBC % (a uto) 0 % % Nucleated RBCs # 0.0 /100WBC /100W BC PT 17.00 SECONDS H S ECONDS (12.1-14.9) INR 1.34 H (0.8-1.2) APTT 29.1 SECONDS SECO NDS (23.9-36.7) Sodium 140 mmol/L mmol/L (136-145) Potassium 3.8 mmol/L mmol/L (3.5-5.1) Chloride 100 mmol/L mmol/L (98-107) Carbon Dioxide 23 mmol/L mmol/L (22-29) Anion Gap 20.8 H (5-19) BUN 16 mg/dL mg/dL (8-23) Creatinine 0.9 mg/dL mg/dL (0.7-1.2) GFR Calculation 85.2 mL/min L mL/ min (90-130) Glucose 117 mg/dL H mg/dL (65-115) Calculated Osmolal ity 292 mOsm/kg mOsm/ kg (285-295) Calcium 8.4 mg/dL L mg/dL (8.5-10.5) Total Bilirubin 0.2 mg/dL mg/dL (0.15-1.2) AST 14 U/L U/L (0-40) ALT 16 U/L U/L (0-41) Alkaline Phosphata se 84 IU/L IU/L (40-130) Troponin T Baselin e Troponin T 120 Min stebbins Delta Troponin T Total Protein 6.6 g/dL g/dL (6.6-8.7) Albumin 3.9 g/dL g/dL (3.5-5.2) Globulin 2.7 g/dL g/dL (1.3-4.6) 03/15/21 03/15/21 12:12 14:00 WBC RBC Hgb Hct MCV MCH MCHC RDW Plt Count MPV Neut % (Auto) Lymph % (Auto) [place] % (Auto) Eos % (Auto) Baso % (Auto) Neut # (Auto) Lymph # (Auto) [place] # (Auto) Eos # (Auto) Baso # (Auto) Nucleated RBC % (a uto) Nucleated RBCs # PT INR APTT Sodium Potassium Chloride Carbon Dioxide Anion Gap BUN Creatinine GFR Calculation Glucose Calculated Osmolal ity Calcium Total Bilirubin AST ALT Alkaline Phosphata se Troponin T Baselin e 15 ng/L ng/L (0-15) Troponin T 120 Min stebbins 16.46 ng/L H ng/L (0-15) Delta Troponin T 1.46 ABS# ABS# (0-10) Total Protein Albumin Globulin EKG Data^: EKG 1: EKG interpretation date: 03/15/21 EKG interpretation time: 12:34 Computer Generated Interpretation: Sinus tach. No change from previous. Ventricular rate 100 bpm NE interval 167 ms QRS durations 102 ms QT is 329 ms Discharge Plan Discharge Patient Disposition: Home Clinical Impression: Acute dehydration Fall Qualifiers: Encounter type: initial encounter Qualified Code(s): W19.XXXA - Unspecified fall, initial encounter Syncope Qualifiers: Syncope type: vasovagal syncope Qualified Code(s): R55 - Syncope and collapse Condition: Stable Prescriptions: New Zithromax Z-Lazaro 250 mg tablet See Rx Instructions .ROUTE .COMPLEX Qty: 6 RF: 0 Discontinued furosemide 20 mg tablet 40 mg PO DAILY PRN (Reason: edema) Qty: 180 RF: 3 potassium chloride 20 mEq tablet extended release 20 meq PO DAILY PRN (Reason: Take with Lasix) Qty: 90 RF: 3 prednisone 10 mg tablet 15 mg PO DAILY Qty: 45 RF: 0 No Action diltiazem HCl 240 mg capsule,extended release 24hr 240 mg PO DAILY Qty: 90 RF: 3 hydrocodone-acetaminophen 5-325 mg tablet 1 tab PO Q6H PRN (Reason: pain) 3 Days Qty: 12 RF: 0 hydrocodone-acetaminophen 5-325 mg tablet 1 tab PO Q4H PRN (Reason: pain) 5 Days Qty: 20 RF: 0 escitalopram oxalate [Lexapro] 10 mg tablet 20 mg PO DAILY RF: 0 (DME) oxygen-air delivery systems Device See Rx Instructions .Route RF: 0 (DME) [id number] Ventilator 0 .Route .MEDSUPPLY RF: 0 Esbriet 801 mg tablet 801 mg PO TID RF: 0 nitroglycerin [Nitrostat] 0.4 mg tablet, sublingual 0.4 mg sublingual Q5M PRN (Reason: chest pain) Qty: 25 RF: 3 acetaminophen [Tylenol] 325 mg tablet 650 mg PO Q6H PRN (Reason: pain) Qty: 240 RF: 3 atorvastatin 20 mg tablet 20 mg PO DAILY 90 Days Qty: 90 RF: 3 benzonatate [Tessalon Perles] 100 mg capsule 100 mg PO TID PRN (Reason: cough) 90 Days Qty: 270 RF: 2 clopidogrel 75 mg tablet 75 mg PO DAILY 90 Days Qty: 90 RF: 1 sulfamethoxazole-trimethoprim [Bactrim DS] 800-160 mg tablet 1 tab PO .COMPLEX 90 Days Qty: 45 RF: 6 sildenafil 25 mg tablet 25 mg PO DAILY PRN (Reason: sexual activity) Qty: 30 RF: 3 Eliquis 5 mg tablet 5 mg PO BID 90 Days Qty: 180 RF: 0 cyclobenzaprine 10 mg tablet 10 mg PO BEDTIME RF: 0 albuterol sulfate [ProAir HFA] 90 mcg/actuation Hfa Aerosol Inhaler 2 puff INHALATION Q4H PRN (Reason: Shortness Of Breath) RF: 0 fluticasone propionate 50 mcg/actuation spray,suspension 2 spray INTRANASAL DAILY RF: 0 Breztri Aerosphere 160-9-4.8 mcg/actuation HFA aerosol inhaler 2 inh inhalation BID RF: 0 lorazepam [Ativan] 1 mg Tablet 1 mg PO QID PRN (Reason: Anxiety) RF: 0 melatonin 10 mg tablet 10 mg PO BEDTIME RF: 0 loratadine 10 mg Tablet 10 mg PO DAILY RF: 0 ondansetron 4 mg tablet,disintegrating 4 mg PO Q8H PRN (Reason: nausea and vomiting) Qty: 7 RF: 0 Discharge Orders: Discharge ED (Routine); Ordered 03/15/21 Ordered By: Harpal Huerta Referrals: Daniel Nogueira, [Primary Care Provider] - Discharge Diet: Advance as tolerated Discharge Activity: Increase activity as tolerated Patient Instructions: Dehydration (ED) Activity Restrictions/Additional Instructions: I believe that your syncopal episode today was caused by the addition of Lasix, potassium, increase steroid, Levaquin and increased milligram of your diltiazem. I suggest that you stop the Lasix potassium Levaquin and steroid and discuss further continuation of this with your specialist and primary care provider. Antibiotic will be changed to azithromycin in lieu of Levaquin. Make sure that you get up slowly from the chair to bed or any sitting position for next few days. Make sure you drink recommend daily allowance of water. Follow-up your primary care provider and specialist in the next couple weeks. 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 Aspergillosis Atrial tachycardia COPD (chronic obstructive pulmonary disease) Coronary artery disease Cubital tunnel syndrome on right Diabetes Diabetes Emphysema of lung Gross hematuria High risk medication use Joint pain P-ANCA titer positive Pneumocystis jiroveci pneumonia Pulmonary nodule Surgical absence of teeth SVT (supraventricular tachycardia) Tobacco abuse Surgical History H/O neck surgery H/O: vasectomy History of ankle surgery History of dental surgery History of facial surgery History of lung biopsy S/P lobectomy of lung Family History Father , AT AGE 78 Cancer Hypertension Mother Diabetes Brother Diabetes Sister Diabetes Father Cancer Prostate Social History Quit status (tobacco): has quit using tobacco Year quit tobacco: 2020 - 2PPD x 40 Years Second hand smoke exposure: No Alcohol intake: never Marital status: Number of children: 3 Number of grandchildren: 4 Current occupational status: retired and disabled History of recent travel: No Dian/Voodoo: Buddhist Course Vital Signs: Vital signs: Vital Signs Temperature 98.2 F 03/15/21 11:58 Pulse Rate 91 03/15/21 13:00 Respiratory Rate 25 H 03/15/21 13:00 Blood Pressure 104/76 03/15/21 13:00 Pulse Oximetry 99 03/15/21 13:00 MDM - Syncope MDM Narrative: Medical decision making narrative: I have reviewed this documentation. Miguelito Kothari MD Emergency Medicine Lab Data: Labs: Lab Results 03/15/21 03/15/21 03/15/21 12:12 12:12 12:12 WBC 10.3 10^3/uL H 10 ^3/uL (4.0-10.0) RBC 4.61 10^6/uL 10^6 /uL (4.1-5.3) Hgb 12.5 g/dL g/dL (11.7-16.6) Hct 40.1 % L % (42.0-52.0) MCV 87.0 fl fl (80-94) MCH 27.1 pg L pg (28.0-34.0) MCHC 31.2 g/dL g/dL (30.0-36.0) RDW 15.0 % % (12.1-15.1) Plt Count 249 10^3/cmm 10^3 /cmm (130-400) MPV 9.3 fL fL (7.4-10.4) Neut % (Auto) 78.8 % % Lymph % (Auto) 14.7 % % [place] % (Auto) 5.1 % % Eos % (Auto) 0.2 % % Baso % (Auto) 0.4 % % Neut # (Auto) 8.12 10^3/uL H 10 ^3/uL (1.8-7.7) Lymph # (Auto) 1.5 10^3/uL 10^3/ uL (0.8-4.8) [place] # (Auto) 0.5 10^3/uL 10^3/ uL (0.2-0.9) Eos # (Auto) 0.0 10^3/uL 10^3/ uL (0.0-0.8) Baso # (Auto) 0.0 10^3/uL 10^3/ uL (0.0-0.1) Nucleated RBC % (a uto) 0 % % Nucleated RBCs # 0.0 /100WBC /100W BC PT 17.00 SECONDS H S ECONDS (12.1-14.9) INR 1.34 H (0.8-1.2) APTT 29.1 SECONDS SECO NDS (23.9-36.7) Sodium 140 mmol/L mmol/L (136-145) Potassium 3.8 mmol/L mmol/L (3.5-5.1) Chloride 100 mmol/L mmol/L (98-107) Carbon Dioxide 23 mmol/L mmol/L (22-29) Anion Gap 20.8 H (5-19) BUN 16 mg/dL mg/dL (8-23) Creatinine 0.9 mg/dL mg/dL (0.7-1.2) GFR Calculation 85.2 mL/min L mL/ min (90-130) Glucose 117 mg/dL H mg/dL (65-115) Calculated Osmolal ity 292 mOsm/kg mOsm/ kg (285-295) Calcium 8.4 mg/dL L mg/dL (8.5-10.5) Total Bilirubin 0.2 mg/dL mg/dL (0.15-1.2) AST 14 U/L U/L (0-40) ALT 16 U/L U/L (0-41) Alkaline Phosphata se 84 IU/L IU/L (40-130) Troponin T Baselin e Troponin T 120 Min stebbins Delta Troponin T Total Protein 6.6 g/dL g/dL (6.6-8.7) Albumin 3.9 g/dL g/dL (3.5-5.2) Globulin 2.7 g/dL g/dL (1.3-4.6) 03/15/21 03/15/21 12:12 14:00 WBC RBC Hgb Hct MCV MCH MCHC RDW Plt Count MPV Neut % (Auto) Lymph % (Auto) [place] % (Auto) Eos % (Auto) Baso % (Auto) Neut # (Auto) Lymph # (Auto) [place] # (Auto) Eos # (Auto) Baso # (Auto) Nucleated RBC % (a uto) Nucleated RBCs # PT INR APTT Sodium Potassium Chloride Carbon Dioxide Anion Gap BUN Creatinine GFR Calculation Glucose Calculated Osmolal ity Calcium Total Bilirubin AST ALT Alkaline Phosphata se Troponin T Baselin e 15 ng/L ng/L (0-15) Troponin T 120 Min stebbins 16.46 ng/L H ng/L (0-15) Delta Troponin T 1.46 ABS# ABS# (0-10) Total Protein Albumin Globulin Discharge Plan Discharge Patient Disposition: Home Clinical Impression: Acute dehydration Fall Qualifiers: Encounter type: initial encounter Qualified Code(s): W19.XXXA - Unspecified fall, initial encounter Syncope Qualifiers: Syncope type: vasovagal syncope Qualified Code(s): R55 - Syncope and collapse Condition: Stable Prescriptions: New Zithromax Z-Lazaro 250 mg tablet See Rx Instructions .ROUTE .COMPLEX Qty: 6 RF: 0 Discontinued furosemide 20 mg tablet 40 mg PO DAILY PRN (Reason: edema) Qty: 180 RF: 3 potassium chloride 20 mEq tablet extended release 20 meq PO DAILY PRN (Reason: Take with Lasix) Qty: 90 RF: 3 prednisone 10 mg tablet 15 mg PO DAILY Qty: 45 RF: 0 No Action diltiazem HCl 240 mg capsule,extended release 24hr 240 mg PO DAILY Qty: 90 RF: 3 hydrocodone-acetaminophen 5-325 mg tablet 1 tab PO Q6H PRN (Reason: pain) 3 Days Qty: 12 RF: 0 hydrocodone-acetaminophen 5-325 mg tablet 1 tab PO Q4H PRN (Reason: pain) 5 Days Qty: 20 RF: 0 escitalopram oxalate [Lexapro] 10 mg tablet 20 mg PO DAILY RF: 0 (DME) oxygen-air delivery systems Device See Rx Instructions .Route RF: 0 (DME) [id number] Ventilator 0 .Route .MEDSUPPLY RF: 0 Esbriet 801 mg tablet 801 mg PO TID RF: 0 nitroglycerin [Nitrostat] 0.4 mg tablet, sublingual 0.4 mg sublingual Q5M PRN (Reason: chest pain) Qty: 25 RF: 3 acetaminophen [Tylenol] 325 mg tablet 650 mg PO Q6H PRN (Reason: pain) Qty: 240 RF: 3 atorvastatin 20 mg tablet 20 mg PO DAILY 90 Days Qty: 90 RF: 3 benzonatate [Tessalon Perles] 100 mg capsule 100 mg PO TID PRN (Reason: cough) 90 Days Qty: 270 RF: 2 clopidogrel 75 mg tablet 75 mg PO DAILY 90 Days Qty: 90 RF: 1 sulfamethoxazole-trimethoprim [Bactrim DS] 800-160 mg tablet 1 tab PO .COMPLEX 90 Days Qty: 45 RF: 6 sildenafil 25 mg tablet 25 mg PO DAILY PRN (Reason: sexual activity) Qty: 30 RF: 3 Eliquis 5 mg tablet 5 mg PO BID 90 Days Qty: 180 RF: 0 cyclobenzaprine 10 mg tablet 10 mg PO BEDTIME RF: 0 albuterol sulfate [ProAir HFA] 90 mcg/actuation Hfa Aerosol Inhaler 2 puff INHALATION Q4H PRN (Reason: Shortness Of Breath) RF: 0 fluticasone propionate 50 mcg/actuation spray,suspension 2 spray INTRANASAL DAILY RF: 0 Breztri Aerosphere 160-9-4.8 mcg/actuation HFA aerosol inhaler 2 inh inhalation BID RF: 0 lorazepam [Ativan] 1 mg Tablet 1 mg PO QID PRN (Reason: Anxiety) RF: 0 melatonin 10 mg tablet 10 mg PO BEDTIME RF: 0 loratadine 10 mg Tablet 10 mg PO DAILY RF: 0 ondansetron 4 mg tablet,disintegrating 4 mg PO Q8H PRN (Reason: nausea and vomiting) Qty: 7 RF: 0 Discharge Orders: Discharge ED (Routine); Ordered 03/15/21 Ordered By: Harpal Huerta Referrals: Daniel Nogueira, [Primary Care Provider] - Discharge Diet: Advance as tolerated Discharge Activity: Increase activity as tolerated Patient Instructions: Dehydration (ED) Activity Restrictions/Additional Instructions: I believe that your syncopal episode today was caused by the addition of Lasix, potassium, increase steroid, Levaquin and increased milligram of your diltiazem. I suggest that you stop the Lasix potassium Levaquin and steroid and discuss further continuation of this with your specialist and primary care provider. Antibiotic will be changed to azithromycin in lieu of Levaquin. Make sure that you get up slowly from the chair to bed or any sitting position for next few days. Make sure you drink recommend daily allowance of water. Follow-up your primary care provider and specialist in the next couple weeks. Coding Level of Care Code ED Double Bottom Driver for Azg Fwd Exam Comprehensive
[2021-03-15] MEDS: ondansetron 2 mg/ML SDV 2 mL 4 MG IVP (12:42)
[2021-03-15] MEDS: sodium chloride 0.9% 1,000 ML 999 ML IV (12:42)
[2021-03-15 12:45] VITALS: BP 104/76; PULSE 96; RESP 22; O2SAT 99
[2021-03-15 12:45] LABS: Basophils % 0.4 %; Eosinophils % 0.2 %; Hematocrit 40.1 % (42.0-52.0); Hemoglobin 12.5 g/dL (11.7-16.6); Lymphocytes # 1.5 10^3/uL (0.8-4.8); Lymphocytes % 14.7 %; Mean Corpuscular HGB Conc 31.2 g/dL (30.0-36.0); Mean Corpuscular Hemoglobin 27.1 pg (28.0-34.0); Mean Platelet Volume 9.3 fL (7.4-10.4); Monocytes # 0.5 10^3/uL (0.2-0.9); Monocytes % 5.1 %; Neutrophils # 8.12 10^3/uL (1.8-7.7); Neutrophils % 78.8 %; Nucleated Red Blood Cells % 0 %; Platelet Count 249 10^3/cmm (130-400); Red Blood Count 4.61 10^6/uL (4.1-5.3); White Blood Count 10.3 10^3/uL (4.0-10.0)
[2021-03-15 13:00] VITALS: BP 104/76; PULSE 91; RESP 25; O2SAT 99
[2021-03-15 13:10] LABS: INR 1.34 (0.8-1.2)
[2021-03-15 13:11] LABS: Partial Thromboplastin Time 29.1 SECONDS (23.9-36.7)
[2021-03-15 13:15] LABS: Troponin(5th) Baseline 15 ng/L (0-15)
[2021-03-15 13:16] LABS: Alanine Aminotransferase 16 U/L (0-41); Albumin Level 3.9 g/dL (3.5-5.2); Alkaline Phosphatase 84 IU/L (40-130); Anion Gap 20.8 (5-19); Aspartate Amino Transferase 14 U/L (0-40); Blood Urea Nitrogen 16 mg/dL (8-23); Calcium 8.4 mg/dL (8.5-10.5); Carbon Dioxide 23 mmol/L (22-29); Chloride 100 mmol/L (98-107); Globulin 2.7 g/dL (1.3-4.6); Glomerular Filtration Rate 85.2 mL/min (90-130); Glucose 117 mg/dL (65-115); Osmolality Calculated 292 mOsm/kg (285-295); Potassium 3.8 mmol/L (3.5-5.1); Sodium 140 mmol/L (136-145); Total Bilirubin 0.2 mg/dL (0.15-1.2); Total Protein 6.6 g/dL (6.6-8.7)
[2021-03-15] MEDS: sodium chloride 0.9% 1,000 ML 150 ML IV (14:10)
--- NOTE | 2021-03-15 14:26 | ECG_ITS ---
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 Measurements Intervals [place] Rate: 100 P: 28 [place]: 167 QRS: -39 QRSD: 102 T: 37 QT: 329 QTc: 426 Interpretive Statements SINUS TACHYCARDIA LEFT AXIS DEVIATION [QRS AXIS < -30] MODERATE VOLTAGE CRITERIA FOR LVH, CONSIDER NORMAL VARIANT [MEETS CRITERIA IN ONE OF: R(aVL), S(V1), R(V5), R(V5/V6)+S(V1)] NONSPECIFIC T-WAVE ABNORMALITY Compared to ECG 09/13/2020 09:42:34 No significant changes Electronically Signed On 03-15-2021 16:05:39 CELL RELINER by Kassidy Pedroza M.D. [id number]
[2021-03-15 14:28] LABS: Troponin 5 2HR 16.46 ng/L (0-15); Troponin 5 2HR Delta 1.46 ABS# (0-10)
--- NOTE | 2021-03-15 18:26 | ECG_ITS ---
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 Measurements Intervals [place] Rate: 85 P: 16 HI: 178 QRS: -33 QRSD: 88 T: 13 QT: 349 QTc: 417 Interpretive Statements SINUS RHYTHM LEFT AXIS DEVIATION [QRS AXIS < -30] MODERATE VOLTAGE CRITERIA FOR LVH, CONSIDER NORMAL VARIANT [MEETS CRITERIA IN ONE OF: R(aVL), S(V1), R(V5), R(V5/V6)+S(V1)] NONSPECIFIC T-WAVE ABNORMALITY Compared to ECG 03/15/2021 12:34:05 Sinus tachycardia no longer present T-wave abnormality still present Electronically Signed On 03-15-2021 16:05:30 TANK CAR MECHANIC by Kassidy Pedroza M.D. [id number]
== END 2021-03-15 15:07 | disposition home or self-care (01) ==
PROVIDERS: Emergency Provider Nurse Practitioner Family; PCP Family Medicine
DX: R55 Syncope and collapse (principal); E86.0 Dehydration; Z79.01 Long term (current) use of anticoagulants; Z79.02 Long term (current) use of antithrombotics/antiplatelets; J44.9 Chronic obstructive pulmonary disease, unspecified; I25.10 Atherosclerotic heart disease of native coronary artery without angina pectoris; E11.9 Type 2 diabetes mellitus without complications; Z87.891 Personal history of nicotine dependence
CPT/HCPCS: 70450; 71045; 80053; 84484; 85025; 85610; 85730; 93005; 96361; 96374; 99284; J2405; J7030

== ENCOUNTER 2021-04-03 06:46 | Outpatient (CLI) | payer OTHER, SELFPAY ==
--- NOTE | 2021-04-03 08:00 | XR_ITS ---
WS: [id number] Exam: XR KUB [id number] Date/Time of Exam: 04/03/2021 7:18 AM Reason For Exam: BILATERAL URETERAL CALCULI Comparison 02/02/2021. No bowel obstruction or free air. Ureteral stent catheters have been removed since prior study. No si gn of organ enlargement. Large amount retained stool in the colon. Bony structures are intact. XR/XR KUB [id number] IMPRESSION: 1. No acute abdominal finding. No calcifications seen in the region of the kidn eys. 2. Constipation.
== END 2021-04-03 06:47 | disposition home or self-care (01) ==
LOC: RAD 06:48
PROVIDERS: PCP Family Medicine; Visit Provider Urology
DX: N20.1 Calculus of ureter (principal); K59.00 Constipation, unspecified
CPT/HCPCS: 74018; 81003

== ENCOUNTER 2021-04-11 12:36 | Emergency (ER) | payer OTHER, SELFPAY ==
[2021-04-11 12:44] VITALS: BP 115/89; PULSE 111; RESP 28; TEMP 36.7; O2SAT 89; BMI 24.3
--- NOTE | 2021-04-11 12:58 | XR_ITS ---
WS: [id number] Portable AP upright chest, 04/11/2021 Clinical Data: chest pain Comparison: Portable chest, 03/15/2021 Findings: The chronic bibasilar interstitial pulmonary changes remain the same. The upper lobes show less involvement. The heart is slightly enlarged. The aortic arch and descending thoracic aorta show tortuosity. There is a posterior cervical fusion. XR/XR chest 1V portable [id number] Impression: 1. Chronic bibasilar pulmonary interstitial change. 2. Cardiomegaly and atherosclerosis.
--- NOTE | 2021-04-11 13:06 | ED_ITS ---
HPI - Chest Pain General: Chief Complaint: Chest Pain Stated Complaint: CP AND RESTPITORY Time Seen by Provider: 04/11/21 12:56 Source: patient Mode of arrival: ambulatory Limitations: no limitations History of Present Illness: HPI narrative: 65-year-old male complaining of anterior chest pain since early this morning. He has a history of pulmonary fibrosis, COPD, and CAD. He requires 6-8L NC O2 at baseline. He had a cold few weeks ago, feels like he has not quite recovered. Occasional productive cough, No fever, night sweats, chills. No swelling. History of DVT and PE, currently on Eliquis 5 mg daily. 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 Onset (ago): hour(s) Timing of current episode: constant Prior episodes: Yes Pain location: substernal Pain radiation: none Quality: aching Exacerbating factors: inspiration Context: recent illness and history of DVT/PE Associated symptoms: Deny diaphoresis, dyspnea, fever(s), leg edema, nausea, palpitations, sense of impending doom, syncope or vomiting Treatment prior to arrival: none Review of Systems General: Reports: 10 or more systems reviewed and unremarkable except in HPI and below Const: Denies: fever(s) or diaphoresis Card: Denies: palpitations or syncope Resp: Denies: dyspnea GI: Denies: nausea or vomiting [facility] ED PFSH: Medical History Abnormal stress test 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 Aspergillosis Atrial tachycardia COPD (chronic obstructive pulmonary disease) Coronary artery disease Cubital tunnel syndrome on right Diabetes Diabetes Emphysema of lung Erectile dysfunction Gross hematuria High risk medication use Joint pain Left lower quadrant pain P-ANCA titer positive Pneumocystis jiroveci pneumonia Pulmonary nodule Surgical absence of teeth SVT (supraventricular tachycardia) Tobacco abuse Urolithiasis Surgical History H/O neck surgery H/O: vasectomy History of ankle surgery History of dental surgery History of facial surgery History of lung biopsy S/P lobectomy of lung Family History Father , AT AGE 78 Cancer Hypertension Mother Diabetes Brother Diabetes Sister Diabetes Father Cancer Prostate Social History Quit status (tobacco): has quit using tobacco Year quit tobacco: 2020 - 2PPD x 40 Years Second hand smoke exposure: No Alcohol intake: never Marital status: Number of children: 3 Number of grandchildren: 4 Current occupational status: retired and disabled History of recent travel: No Dian/Confucianist: Catholic Physical Exam Const: COMMON NORMALS: no acute distress, average body habitus and patient oriented x3 GENERAL APPEARANCE: cooperative and comfortable HENMT: COMMON NORMALS: normocephalic and atraumatic HEAD & SCALP: normoce phalic and atraumatic FACE & SINUS: normal facial exam and face symmetric Eye: COMMON NORMALS: Equal, round and reactive pupils present, EOMs intact bilaterally and conjunctivae normal CONJUNCTIVA: Yes conjunctivae normal PUPIL: Yes Equal, round and reactive pupils present Neck/C-Spine: COMMON NORMALS: no JVD Chest: COMMONS NORMALS: normal inspection of the chest and normal palpation of entire chest wall Resp: COMMON NORMALS: No use of accessory muscles EFFORT & INSPECTION: Yes able to speak in complete sentences AUSCULTATION: crackles and diminished lung sounds Cardio: COMMON NORMALS: no JVD, regular rate and regular rhythm RATE: regular rate RHYTHM: regular rhythm GI: COMMON NORMALS: Normal to inspection, nondistended, normoactive bowel sounds present, Soft to palpation and non-tender PALPATION: Yes Soft to palpation Extremity: COMMON NORMALS: normal to inspection, full ROM and capillary refill normal GENERAL: No edema Neuro: COMMON NORMALS: patient oriented x3 Skin: COMMON NORMALS: no rashes or lesions noted, no wounds, turgor normal and no jaundice GENERAL SKIN EXAM: no rashes or lesions noted and turgor normal Course Vital Signs: Vital signs: Vital Signs Temperature 98.0 F 04/11/21 12:44 Pulse Rate 95 04/11/21 17:36 Respiratory Rate 20 H 04/11/21 17:36 Blood Pressure 115/81 04/11/21 17:36 Pulse Oximetry 95 04/11/21 17:36 MDM - Chest Pain MDM Narrative: Medical decision making narrative: 65-year-old male with pulmonary fibrosis and COPD complaining of anterior pleuritic type chest pain since this morning. Recent URI, occasionally productive cough persists Chest x-ray is stable compared to previous CBC and chemistry stable. Serial troponin levels consistent with baseline. No acute ischemic changes on EKG. Treat for suspected COPD exacerbation; doxycycline, prednisone Lab Data: Labs: Lab Results 04/11/21 04/11/21 04/11/21 13:08 13:08 13:08 WBC 11.3 10^3/uL H 10 ^3/uL (4.0-10.0) RBC 4.43 10^6/uL 10^6 /uL (4.1-5.3) Hgb 11.6 g/dL L g/dL (11.7-16.6) Hct 36.4 % L % (42.0-52.0) MCV 82.2 fl fl (80-94) MCH 26.2 pg L pg (28.0-34.0) MCHC 31.9 g/dL g/dL (30.0-36.0) RDW 14.6 % % (12.1-15.1) Plt Count 297 10^3/cmm 10^3 /cmm (130-400) MPV 9.1 fL fL (7.4-10.4) Neut % (Auto) 84.5 % % Lymph % (Auto) 12.0 % % [place] % (Auto) 2.7 % % Eos % (Auto) 0.0 % % Baso % (Auto) 0.2 % % Neut # (Auto) 9.57 10^3/uL H 10 ^3/uL (1.8-7.7) Lymph # (Auto) 1.4 10^3/uL 10^3/ uL (0.8-4.8) [place] # (Auto) 0.3 10^3/uL 10^3/ uL (0.2-0.9) Eos # (Auto) 0.0 10^3/uL 10^3/ uL (0.0-0.8) Baso # (Auto) 0.0 10^3/uL 10^3/ uL (0.0-0.1) Nucleated RBC % (a uto) 0 % % Nucleated RBCs # 0.0 /100WBC /100W BC PT INR Sodium 132 mmol/L L mmol /L (136-145) Potassium 4.4 mmol/L mmol/L (3.5-5.1) Chloride 97 mmol/L L mmol/ L (98-107) Carbon Dioxide 22 mmol/L mmol/L (22-29) Anion Gap 17.4 (5-19) BUN 14 mg/dL mg/dL (8-23) Creatinine 0.8 mg/dL mg/dL (0.7-1.2) GFR Calculation 97.6 mL/min mL/mi n (90-130) Glucose 237 mg/dL H mg/dL (65-115) Calculated Osmolal ity 282 mOsm/kg L mOs m/kg (285-295) Calcium 8.6 mg/dL mg/dL (8.5-10.5) Magnesium 1.7 mg/dL mg/dL (1.7-2.3) Total Bilirubin 0.2 mg/dL mg/dL (0.15-1.2) AST 14 U/L U/L (0-40) ALT 13 U/L U/L (0-41) Alkaline Phosphata se 95 IU/L IU/L (40-130) Troponin T Baselin e 17 ng/L H ng/L (0-15) Troponin T 120 Min [place] Troponin T NT-Pro-B Natriuret Pep 24 pg/mL pg/mL (0-125) Total Protein 6.6 g/dL g/dL (6.6-8.7) Albumin 3.6 g/dL g/dL (3.5-5.2) Globulin 3.0 g/dL g/dL (1.3-4.6) 04/11/21 04/11/21 13:18 15:09 WBC RBC Hgb Hct MCV MCH MCHC RDW Plt Count MPV Neut % (Auto) Lymph % (Auto) [place] % (Auto) Eos % (Auto) Baso % (Auto) Neut # (Auto) Lymph # (Auto) [place] # (Auto) Eos # (Auto) Baso # (Auto) Nucleated RBC % (a uto) Nucleated RBCs # PT 15.80 SECONDS H S ECONDS (12.1-14.9) INR 1.23 H (0.8-1.2) Sodium Potassium Chloride Carbon Dioxide Anion Gap BUN Creatinine GFR Calculation Glucose Calculated Osmolal ity Calcium Magnesium Total Bilirubin AST ALT Alkaline Phosphata se Troponin T Baselin e Troponin T 120 Min [place] 15.51 ng/L H ng/L (0-15) Delta Troponin T -1.49 ABS# L ABS# (0-10) NT-Pro-B Natriuret Pep Total Protein Albumin Globulin Discharge Plan Discharge Patient Disposition: Home Clinical Impression: COPD exacerbation Chest pain Qualifiers: Chest pain type: pleurodynia Qualified Code(s): R07.81 - Pleurodynia Condition: Stable Prescriptions: New doxycycline hyclate 100 mg capsule 100 mg PO BID 7 Days Qty: 14 RF: 0 prednisone 20 mg tablet 60 mg PO DAILY 5 Days Qty: 15 RF: 0 No Action diltiazem HCl 240 mg capsule,extended release 24hr 240 mg PO DAILY Qty: 90 RF: 3 escitalopram oxalate [Lexapro] 10 mg tablet 20 mg PO DAILY RF: 0 (DME) oxygen-air delivery systems Device See Rx Instructions .Route RF: 0 (DME) [id number] Ventilator 0 .Route .MEDSUPPLY RF: 0 Esbriet 801 mg tablet 801 mg PO TID RF: 0 nitroglycerin [Nitrostat] 0.4 mg tablet, sublingual 0.4 mg sublingual Q5M PRN (Reason: chest pain) Qty: 25 RF: 3 acetaminophen [Tylenol] 325 mg tablet 650 mg PO Q6H PRN (Reason: pain) Qty: 240 RF: 3 atorvastatin 20 mg tablet 20 mg PO DAILY 90 Days Qty: 90 RF: 3 benzonatate [Tessalon Perles] 100 mg capsule 100 mg PO TID PRN (Reason: cough) 90 Days Qty: 270 RF: 2 clopidogrel 75 mg tablet 75 mg PO DAILY 90 Days Qty: 90 RF: 1 sulfamethoxazole-trimethoprim [Bactrim DS] 800-160 mg tablet 1 tab PO .COMPLEX 90 Days Qty: 45 RF: 6 sildenafil 25 mg tablet 25 mg PO DAILY PRN (Reason: sexual activity) Qty: 30 RF: 3 Eliquis 5 mg tablet 5 mg PO BID 90 Days Qty: 180 RF: 0 cyclobenzaprine 10 mg tablet 10 mg PO BEDTIME RF: 0 albuterol sulfate [ProAir HFA] 90 mcg/actuation Hfa Aerosol Inhaler 2 puff INHALATION Q4H PRN (Reason: Shortness Of Breath) RF: 0 fluticasone propionate 50 mcg/actuation spray,suspension 2 spray INTRANASAL DAILY RF: 0 Breztri Aerosphere 160-9-4.8 mcg/actuation HFA aerosol inhaler 2 inh inhalation BID RF: 0 lorazepam [Ativan] 1 mg Tablet 1 mg PO QID PRN (Reason: Anxiety) RF: 0 melatonin 10 mg tablet 10 mg PO BEDTIME RF: 0 loratadine 10 mg Tablet 10 mg PO DAILY RF: 0 ondansetron 4 mg tablet,disintegrating 4 mg PO Q8H PRN (Reason: nausea and vomiting) Qty: 7 RF: 0 Zithromax Z-Lazaro 250 mg tablet See Rx Instructions .ROUTE .COMPLEX Qty: 6 RF: 0 Discharge Orders: Discharge ED (Routine); Ordered 04/11/21 Ordered By: Fozia Logan Referrals: Daniel Nogueira, [Primary Care Provider] - Discharge Diet: Advance as tolerated Discharge Activity: Resume usual activity Activity Restrictions/Additional Instructions: Call to schedule follow-up appointment with your primary care doctor in the next 3 days for recheck. Return immediately to the ER if you develop worsening difficulty breathing or chest pain, fever, or any other worsening symptoms. Coding Level of Care Code ED Diesel Powerplant Mechanic for Chelsea Fwd Exam Comprehensive
[2021-04-11 13:19] LABS: Basophils % 0.2 %; Hematocrit 36.4 % (42.0-52.0); Hemoglobin 11.6 g/dL (11.7-16.6); Lymphocytes # 1.4 10^3/uL (0.8-4.8); Mean Corpuscular HGB Conc 31.9 g/dL (30.0-36.0); Mean Corpuscular Hemoglobin 26.2 pg (28.0-34.0); Mean Corpuscular Volume 82.2 fl (80-94); Mean Platelet Volume 9.1 fL (7.4-10.4); Monocytes # 0.3 10^3/uL (0.2-0.9); Monocytes % 2.7 %; Neutrophils # 9.57 10^3/uL (1.8-7.7); Neutrophils % 84.5 %; Nucleated Red Blood Cells % 0 %; Platelet Count 297 10^3/cmm (130-400); Red Blood Count 4.43 10^6/uL (4.1-5.3); Red Cell Distribution Width 14.6 % (12.1-15.1); White Blood Count 11.3 10^3/uL (4.0-10.0)
[2021-04-11 13:41] LABS: INR 1.23 (0.8-1.2)
[2021-04-11 13:46] LABS: Troponin(5th) Baseline 17 ng/L (0-15)
[2021-04-11 13:53] LABS: Alanine Aminotransferase 13 U/L (0-41); Albumin Level 3.6 g/dL (3.5-5.2); Alkaline Phosphatase 95 IU/L (40-130); Anion Gap 17.4 (5-19); Aspartate Amino Transferase 14 U/L (0-40); Blood Urea Nitrogen 14 mg/dL (8-23); Calcium 8.6 mg/dL (8.5-10.5); Carbon Dioxide 22 mmol/L (22-29); Chloride 97 mmol/L (98-107); Glomerular Filtration Rate 97.6 mL/min (90-130); Glucose 237 mg/dL (65-115); Magnesium 1.7 mg/dL (1.7-2.3); NT Pro B Type Natriuretic Pept 24 pg/mL (0-125); Osmolality Calculated 282 mOsm/kg (285-295); Potassium 4.4 mmol/L (3.5-5.1); Sodium 132 mmol/L (136-145); Total Bilirubin 0.2 mg/dL (0.15-1.2); Total Protein 6.6 g/dL (6.6-8.7)
--- NOTE | 2021-04-11 14:37 | PC.NURSE ---
continuos cardiac, BP, and SpO2 monitoring initiated upon arrival into room.
--- NOTE | 2021-04-11 14:58 | ECG_ITS ---
[facility] Test Date: 2021-04-11 Pat Name: Gregg Babcock Department: Room: Gender: Male Manager Plumbing: : 1955 Requested By: Fozia Logan Order Number: [id number] Jaelyn MD: Chelsea Parikh M.D. Measurements Intervals [place] Rate: 112 P: 57 PA: 162 QRS: -67 QRSD: 91 T: 84 QT: 301 QTc: 411 Interpretive Statements SINUS TACHYCARDIA PATTERN CONSISTENT WITH PULMONARY DISEASE LEFT ANTERIOR FASCICULAR BLOCK [QRS AXIS <= -45, QR IN I, RS IN II] NONSPECIFIC ST & T-WAVE ABNORMALITY Compared to ECG 03/15/2021 14:38:19 Left anterior fascicular block now present Sinus rhythm no longer present Left-axis deviation no longer present T-wave abnormality still present Electronically Signed On 04-11-2021 20:49:55 DETACKER by Chelsea Parikh M.D. [id number]
[2021-04-11 15:56] LABS: Troponin 5 2HR 15.51 ng/L (0-15)
[2021-04-11 16:00] LABS: Troponin 5 2HR Delta -1.49 ABS# (0-10)
[2021-04-11] MEDS: doxycycline 100 mg Tablet PO (16:41)
[2021-04-11 17:36] VITALS: BP 115/81; PULSE 95; RESP 20; O2SAT 95
--- NOTE | 2021-04-11 18:58 | ECG_ITS ---
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 Measurements Intervals [place] Rate: 98 P: 66 MN: 169 QRS: -58 QRSD: 88 T: 72 QT: 334 QTc: 427 Interpretive Statements SINUS RHYTHM LEFT ANTERIOR FASCICULAR BLOCK [QRS AXIS <= -45, QR IN I, RS IN II] NONSPECIFIC T-WAVE ABNORMALITY Compared to ECG 04/11/2021 12:53:16 Sinus tachycardia no longer present T-wave abnormality still present Electronically Signed On 04-11-2021 20:50:11 CLOTH CUTTING MACHINE OPERATOR by Chelsea Parikh M.D. [email or web address]/[id number]
== END 2021-04-11 17:26 | disposition home or self-care (01) ==
PROVIDERS: Emergency Provider Family Medicine; PCP Family Medicine
DX: J44.1 Chronic obstructive pulmonary disease with (acute) exacerbation (principal); R07.81 Pleurodynia; Z79.01 Long term (current) use of anticoagulants; Z79.02 Long term (current) use of antithrombotics/antiplatelets; I25.10 Atherosclerotic heart disease of native coronary artery without angina pectoris; E11.9 Type 2 diabetes mellitus without complications; Z90.2 Acquired absence of lung [part of]; Z87.891 Personal history of nicotine dependence
CPT/HCPCS: 71045; 80053; 83735; 83880; 84484; 85025; 85610; 93005; 96374; 99284; J2930

== ENCOUNTER 2021-04-14 06:00 | Outpatient (RCR) | payer OTHER, SELFPAY | END 2021-05-14 23:59 | disposition home or self-care (01) | LOC: PULRHB 06:00 | PROVIDERS: PCP Family Medicine; Visit Provider Internal Medicine Critical Care Medicine | DX: J84.9 Interstitial pulmonary disease, unspecified (principal) | CPT/HCPCS: G0238 ==

== ENCOUNTER 2021-04-18 09:42 | Inpatient (IN) | payer OTHER, SELFPAY ==
[2021-04-18] VITALS (7 sets, daily range): BP systolic 108–118; BP diastolic 69–86; PULSE 98–123; RESP 16–24; TEMP 36.4–36.7; O2SAT 92–98; BMI 24.3
--- NOTE | 2021-04-18 10:23 | XR_ITS ---
WS: [id number] Portable AP upright chest, 04/18/2021 Clinical Data: SOB Comparison: Portable chest, 04/11/2021. Findings: No nodules, masses or effusions are seen. The heart is normal. The pulmonary vascularity is not increased. No pneumothorax is seen. The aortic arch and descending thoracic aorta are tortuous. There is bibasilar interstitial change which remains the same. Again this probably represents chronic fibrosis. The patient's had a posterior cervical fusion. XR/XR chest 1V portable [id number] Impression: 1. Chronic bibasilar interstitial change. 2. Atherosclerosis.
[2021-04-18 11:22] LABS: ABG PCO2 30.7 mmHg (35-45); ABG PH Result 7.47 (7.35-7.45); Alveolar-Arterial Oxygen Gradi 8.2 mmHg (5-10); Base Excess ABG -0.3 mmol/L (-2.0-2.0); Blood Gas Allen Test Pos; Blood Gas Operator Identificat AMH; Blood Gas Sample Site Radial, left; Blood Gas Sample Type Arterial; Carboxyhemoglobin 0.1 %THgb (0.4-20.1); HCO3 ABG 22.5 mmol/L (22-26); HGB O2 Sat 84.7 % (95-100); Ionized Calcium Level - ABG 1.3 mmol/L (1.1-1.4); Methemoglobin 0.7 % (0.4-1.5); Oxygen Device NC; Oxygen Saturation ABG 85.3; PO2 ABG 48.9 mmHg (80.0-100.0); Potassium Level - ABG 4.4 mmol/L (3.5-5.0); Total Hemoglobin 13.4 g/dL (14-18)
[2021-04-18] MEDS: ipratropium-albuterol 3 mL Neb INHALATION ×3 (11:50→20:55)
[2021-04-18 12:10] LABS: Basophils % 0.2 %; Eosinophils % 0.1 %; Hematocrit 41.5 % (42.0-52.0); Hemoglobin 12.7 g/dL (11.7-16.6); Lymphocytes # 2.5 10^3/uL (0.8-4.8); Lymphocytes % 13.6 %; Mean Corpuscular HGB Conc 30.6 g/dL (30.0-36.0); Mean Corpuscular Volume 84.9 fl (80-94); Mean Platelet Volume 8.7 fL (7.4-10.4); Monocytes # 1.1 10^3/uL (0.2-0.9); Monocytes % 5.7 %; Neutrophils % 78.7 %; Nucleated Red Blood Cells % 0 %; Platelet Count 402 10^3/cmm (130-400); Red Blood Count 4.89 10^6/uL (4.1-5.3); Red Cell Distribution Width 14.9 % (12.1-15.1); White Blood Count 18.4 10^3/uL (4.0-10.0)
[2021-04-18 12:30] LABS: Lactic Sepsis W/Reflex 2.9 mmol/L (0.5-2.2)
[2021-04-18 12:42] LABS: NT Pro B Type Natriuretic Pept 22 pg/mL (0-125); Procalcitonin 0.15 ng/mL (0-0.5)
[2021-04-18 13:00] LABS: Alanine Aminotransferase 20 U/L (0-41); Albumin Level 3.5 g/dL (3.5-5.2); Alkaline Phosphatase 88 IU/L (40-130); Anion Gap 18.1 (5-19); Aspartate Amino Transferase 13 U/L (0-40); Blood Urea Nitrogen 20 mg/dL (8-23); Calcium 8.6 mg/dL (8.5-10.5); Carbon Dioxide 22 mmol/L (22-29); Chloride 99 mmol/L (98-107); Globulin 2.7 g/dL (1.3-4.6); Glomerular Filtration Rate 97.6 mL/min (90-130); Glucose 116 mg/dL (65-115); Osmolality Calculated 284 mOsm/kg (285-295); Potassium 4.1 mmol/L (3.5-5.1); Sodium 135 mmol/L (136-145); Total Bilirubin 0.2 mg/dL (0.15-1.2); Total Protein 6.2 g/dL (6.6-8.7)
--- NOTE | 2021-04-18 13:06 | ECG_ITS ---
[facility] Test Date: 2021-04-18 Pat Name: Gregg Babcock Department: Room: Gender: Male Stitcher Utility: : 1955 Requested By: Michelle Lyle Order Number: [id number] Christy MD: Kassidy Pedroza M.D. Measurements Intervals [place] Rate: 129 P: 55 WI: 140 QRS: -45 QRSD: 89 T: 61 QT: 379 QTc: 556 Interpretive Statements SINUS TACHYCARDIA LEFT AXIS DEVIATION [QRS AXIS < -30] POSSIBLE RIGHT VENTRICULAR CONDUCTION DELAY [RSR (QR) IN V1/V2] MODERATE VOLTAGE CRITERIA FOR LVH, CONSIDER NORMAL VARIANT [MEETS CRITERIA IN ONE OF: R(aVL), S(V1), R(V5), R(V5/V6)+S(V1)] NONSPECIFIC T-WAVE ABNORMALITY Compared to ECG 04/11/2021 15:18:57 Left-axis deviation now present Sinus rhythm no longer present Left anterior fascicular block no longer present T-wave abnormality still present Electronically Signed On 04-19-2021 22:04:13 PROPERTY INSURANCE CLAIMS EXAMINER by Kassidy Pedroza M.D. [id number]
--- NOTE | 2021-04-18 13:18 | CT_ITS ---
WS: [id number] CT CHEST ANGIOGRAPHY WITH REFORMATS HISTORY: Left-sided chest pain and short of breath. Coughing for 7 days. TECHNIQUE: Contiguous axial images are obtained through the chest during arterial injection of intrav enous contrast. Images are reconstructed to evaluate the pulmonary arteries. MIP imaging also reviewe d. All CT scans at [facility] use at least one of these dose optimization techniques: automat ed exposure control; mA and/or kV adjustment per patient size (includes targeted exams where dose is matched to clinical indication); or iterative reconstruction. CONTRAST: Omnipaque 350; 78 mL IV. DLP: 615.51 mGy.cm COMPARISON: 09/12/2020 Very good opacification of the pulmonary artery. There is no central pulmonary emboli. No emboli thro ugh the segmental branches. Normal size pulmonary artery. Mild atherosclerosis of aorta. No aneurysm. Mild enlargement of the LEFT heart chambers. No pericardial or pleural effusion. There is mild bronchial thickening centrally. No adenopathy. There is moderate to severe bilateral pulmonary fibrosis. Honeycombing and traction bronchiectasis ar e noted bilaterally. Paraseptal emphysematous changes. No mass or consolidation. Small hiatal hernia. No adrenal mass. Numerous compression fractures within the mid to lower thoracic spine. T6-T11 compression fractures. Fractures have increased in extent and number since 09/12/2020. N o retropulsion or cord compression. CT/CT angio chest PE protcl [id number] IMPRESSION: 1. No pulmonary embolism. 2. Idiopathic pulmonary fibrosis. 3. No focal pneumonia. 4. Numerous thoracic spine compression fractures. No retropulsion or cord comp ression.
--- NOTE | 2021-04-18 13:22 | ED_ITS ---
HPI - General Adult General: Chief complaint: Shortness of Breath/Dyspnea Stated complaint: SOB, HARD TO BREATH PCP SENT OVER Time Seen by Provider: 04/18/21 11:58 History of Present Illness: HPI narrative: Patient is a 65-year-old male with a history of COPD, pulmonary fibrosis currently awaiting transplant, prior pneumonectomy followed by Dr. Mayfield who presents emergency room with increasing oxygen requirement and shortness of breath. Per patient, he had URI symptoms on Friday. Since then, patient has become increasingly more short of breath. Today patient was noted to have low O2 sat and required 8 L of oxygen. At baseline, patient uses 3 L of oxygen. Patient has no complaints of fever/chills, abdominal complaints, nausea/diarrhea, vomiting, or urinary symptoms. 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 Aspergillosis Atrial tachycardia COPD (chronic obstructive pulmonary disease) Coronary artery disease Cubital tunnel syndrome on right Diabetes Diabetes Emphysema of lung Erectile dysfunction Gross hematuria High risk medication use Joint pain Left lower quadrant pain P-ANCA titer positive Pneumocystis jiroveci pneumonia Pulmonary nodule Surgical absence of teeth SVT (supraventricular tachycardia) Tobacco abuse Urolithiasis Surgical History H/O neck surgery H/O: vasectomy History of ankle surgery History of dental surgery History of facial surgery History of lung biopsy S/P lobectomy of lung Family History Father , AT AGE 78 Cancer Hypertension Mother Diabetes Brother Diabetes Sister Diabetes Father Cancer Prostate Social History Quit status (tobacco): has quit using tobacco Year quit tobacco: 2020 - 2PPD x 40 Years Second hand smoke exposure: No Alcohol intake: never Marital status: Number of children: 3 Number of grandchildren: 4 Current occupational status: retired and disabled History of recent travel: No Dian/Taoism: Spiritism Physical Exam Const: COMMON NORMALS: alert HENMT: COMMON NORMALS: atraumatic HEAD & SCALP: atraumatic MOUTH: moist mucous membranes not abnormal Eye: COMMON NORMALS: EOMs intact bilaterally and conjunctivae normal CONJUNCTIVA: Yes conjunctivae normal Neck/C-Spine: COMMON NORMALS: full ROM and supple Resp: COMMON NORMALS: normal respiratory effort AUSCULTATION: other (coarse breath sounds b/l) Cardio: COMMON NORMALS: regular rate RATE: regular rate GI: COMMON NORMALS: Soft to palpation and non-tender PALPATION: Yes Soft to palpation Extremity: COMMON NORMALS: full ROM Neuro: SENSORIUM/ORIENTATION: Yes alert MOTOR EXAM: Abnormal motor strength present and Other motor observations present (no focla motor deficits) Psych: COMMON NORMALS: speech normal SPEECH: Yes normal speech MOOD & AFFECT: Yes euthymic mood Course Vital Signs: Vital signs: Vital Signs Temperature 97.9 F 04/19/21 20:00 Pulse Rate 99 04/19/21 20:00 Respiratory Rate 17 04/19/21 20:00 Blood Pressure 110/75 04/19/21 20:00 Pulse Oximetry 97 04/19/21 20:00 MDM - General Adult MDM Narrative: Medical decision making narrative: Patient is 65-year-old male with history of COPD, aspergillosis, prior pneumonectomy, pulmonary fibrosis presenting to the emergency room with cough, dyspnea, increased oxygen requirements since URI symptoms on Friday. On arrival, patient satting at 95% on 8 L of oxygen. Patient noted to have white count 18.4 today. X-rays consistent with possible pneumonia. CTA chest negative for PE or pneumonia. Patient will be admitted to the hospital for increased work of breathing, new oxygen requirement, and exacerbation of pulmonary fibrosis. Disposition: Admission Lab Data: Labs: Lab Results 04/18/21 04/18/21 04/18/21 11:11 11:56 11:56 WBC 18.4 10^3/uL H 10 ^3/uL (4.0-10.0) RBC 4.89 10^6/uL 10^6 /uL (4.1-5.3) Hgb 12.7 g/dL g/dL (11.7-16.6) Hct 41.5 % L % (42.0-52.0) MCV 84.9 fl fl (80-94) MCH 26.0 pg L pg (28.0-34.0) MCHC 30.6 g/dL g/dL (30.0-36.0) RDW 14.9 % % (12.1-15.1) Plt Count 402 10^3/cmm H 10 ^3/cmm (130-400) MPV 8.7 fL fL (7.4-10.4) Neut % (Auto) 78.7 % % Lymph % (Auto) 13.6 % % Whitfield % (Auto) 5.7 % % Eos % (Auto) 0.1 % % Baso % (Auto) 0.2 % % Neut # (Auto) 14.50 10^3/uL H 1 0^3/uL (1.8-7.7) Lymph # (Auto) 2.5 10^3/uL 10^3/ uL (0.8-4.8) Whitfield # (Auto) 1.1 10^3/uL H 10^ 3/uL (0.2-0.9) Eos # (Auto) 0.0 10^3/uL 10^3/ uL (0.0-0.8) Baso # (Auto) 0.0 10^3/uL 10^3/ uL (0.0-0.1) Nucleated RBC % (a uto) 0 % % Nucleated RBCs # 0.0 /100WBC /100W BC Specimen Type Arterial Sample Site Radial, left ABG pH 7.47 H (7.35-7.45) ABG pCO2 30.7 mmHg L mmHg (35-45) ABG pO2 48.9 mmHg L mmHg (80.0-100.0) ABG HCO3 22.5 mmol/L mmol/ L (22-26) ABG O2 Saturation 85.3 ABG Base Excess -0.3 mmol/L mmol/ L (-2.0-2.0) Erickson Test Pos A-a O2 Gradient 8.2 mmHg mmHg (5-10) Hematocrit 41.0 % L % (42-52) Hgb O2 Saturation 84.7 % L % (95-100) Carboxyhemoglobin 0.1 %THgb L %THgb (0.4-20.1) Methemoglobin 0.7 % % (0.4-1.5) Total Hemoglobin 13.4 g/dL L g/dL (14-18) Sodium 138.0 mmol/L mmol /L 135 mmol/L L mmol /L (131-143) (136-145) Potassium 4.4 mmol/L mmol/L 4.1 mmol/L mmol/L (3.5-5.0) (3.5-5.1) Glucose 155.0 mg/dL H mg/ dL 116 mg/dL H mg/dL (70-115) (65-115) Ionized Calcium 1.3 mmol/L mmol/L (1.1-1.4) O2 Delivery Device Nc O2 Liters/Min 8.0 % % Oilseed Meat Presser ID Amh Chloride 99 mmol/L mmol/L (98-107) Carbon Dioxide 22 mmol/L mmol/L (22-29) Anion Gap 18.1 (5-19) BUN 20 mg/dL mg/dL (8-23) Creatinine 0.8 mg/dL mg/dL (0.7-1.2) GFR Calculation 97.6 mL/min mL/mi n (90-130) Calculated Osmolal ity 284 mOsm/kg L mOs m/kg (285-295) Lactic Acid Calcium 8.6 mg/dL mg/dL (8.5-10.5) Total Bilirubin 0.2 mg/dL mg/dL (0.15-1.2) AST 13 U/L U/L (0-40) ALT 20 U/L U/L (0-41) Alkaline Phosphata se 88 IU/L IU/L (40-130) NT-Pro-B Natriuret Pep 22 pg/mL pg/mL (0-125) Total Protein 6.2 g/dL L g/dL (6.6-8.7) Albumin 3.5 g/dL g/dL (3.5-5.2) Globulin 2.7 g/dL g/dL (1.3-4.6) Procalcitonin 0.15 ng/mL ng/mL (0-0.5) SARS-CoV-2 Ag (Rap id) 04/18/21 04/18/21 04/18/21 11:56 11:56 12:55 WBC RBC Hgb Hct MCV MCH MCHC RDW Plt Count MPV Neut % (Auto) Lymph % (Auto) Whitfield % (Auto) Eos % (Auto) Baso % (Auto) Neut # (Auto) Lymph # (Auto) Whitfield # (Auto) Eos # (Auto) Baso # (Auto) Nucleated RBC % (a uto) Nucleated RBCs # Specimen Type Sample Site ABG pH ABG pCO2 ABG pO2 ABG HCO3 ABG O2 Saturation ABG Base Excess Erickson Test A-a O2 Gradient Hematocrit Hgb O2 Saturation Carboxyhemoglobin Methemoglobin Total Hemoglobin Sodium Potassium Glucose Ionized Calcium O2 Delivery Device O2 Liters/Min Oilseed Meat Presser ID Chloride Carbon Dioxide Anion Gap BUN Creatinine GFR Calculation Calculated Osmolal ity Lactic Acid 2.9 mmol/L H mmol /L (0.5-2.2) Calcium Total Bilirubin AST ALT Alkaline Phosphata se NT-Pro-B Natriuret Pep Total Protein Albumin Globulin Procalcitonin 0.15 ng/mL ng/mL (0-0.5) SARS-CoV-2 Ag (Rap id) Negative (Negative) Imaging Data^: Other Imaging: Radiologist's impression: [address] [id number] Scan ReportSigned Patient: Gregg Babcock #: [id number]: 8Acct#:[id number]/Sex: 65 / MADM Date: 04/18/21Loc: [facility]/Bed:Attending Dr: Ordering Provider/Ordering MD: Michelle Lyle MD Date of Service: 04/18/21 Procedure(s): CT angio chest PE protcl [id number] Accession Number(s): [id number] Report Number: [id number] WS: [id number] CT CHEST ANGIOGRAPHY WITH REFORMATS HISTORY: Left-sided chest pain and short of breath. Coughing for 7 days. TECHNIQUE: Contiguous axial images are obtained through the chest during arterial injection of intravenous contrast. Images are reconstructed to evaluate the pulmonary arteries. MIP imaging also reviewed. All CT scans at [facility] use at least one of these dose optimization techniques: automated exposure control; mA and/or kV adjustment per patient size (includes targeted exams where dose is matched to clinical indication); or iterative reconstruction. CONTRAST: Omnipaque 350; 78 mL IV. DLP: 615.51 mGy.cm COMPARISON: 09/12/2020 Very good opacification of the pulmonary artery. There is no central pulmonary e mboli. No emboli through the segmental branches. Normal size pulmonary artery. Mild atherosclerosis of aorta. No aneurysm. Mild enlargement of the LEFT heart chambers. No pericardial or pleural effusion. There is mild bronchial thickening centrally. No adenopathy. There is moderate to severe bilateral pulmonary fibrosis. Honeycombing and traction bronchiectasis are noted bilaterally. Paraseptal emphysematous changes. No mass or consolidation. Small hiatal hernia. No adrenal mass. Numerous compression fractures within the mid to lower thoracic spine. T6-T11 compression fractures. Fractures have increased in extent and number since 09/12/2020. No retropulsion or cord compression. CT/CT angio chest PE protcl [id number] IMPRESSION: 1. No pulmonary embolism. 2. Idiopathic pulmonary fibrosis. 3. No focal pneumonia. 4. Numerous thoracic spine compression fractures. No retropulsion or cord compression. Dictated By:Teresa Luke DOSigned By:Teresa Luke DOSigned Date/Time:04/18/21 1358DD/ [address] [id number] ReportSigned Patient: Gregg Babcock #: [id number]: [id number]#:[id number]/Sex: 65 / MADM Date: 04/18/21Loc: [facility]/Bed:Attending Dr: Ordering Provider/Ordering MD: Armida Henley Date of Service: 04/18/21 Procedure(s): XR chest 1V portable [id number] Accession Number(s): [id number] Report Number: [id number] WS: [id number] Portable AP upright chest, 04/18/2021 Clinical Data: SOB Comparison: Portable chest, 04/11/2021. Findings: No nodules, masses or effusions are seen. The heart is normal. The pulmonary vascularity is not increased. No pneumothorax is seen. The aortic arch and descending thoracic aorta are tortuous. There is bibasilar interstitial change which remains the same. Again this probably represents chronic fibrosis. The patient's had a posterior cervical fusion. XR/XR chest 1V portable [id number] Impression: 1. Chronic bibasilar interstitial change. 2. Atherosclerosis. Dictated By:Miranda Hart MDSigned By:Miranda Hart MDSigned Date/Time:04/18/21 1103DD/ 1101 Discharge Plan Discharge Admit Provider: Stephanie Moscoso Coding Level of Care Code ED Hose Operator for Chg Fwd Exam Comprehensive
[2021-04-18] MEDS: iohexol 350 mg/mL 100 mL Btl IV (13:46)
[2021-04-18 13:52] LABS: Reflex Lactate Order REFLEX LACTIC ORDERD
[2021-04-18 13:53] LABS: SARS Covid-2 Antigen Negative (Negative)
[2021-04-18 14:31] LABS: Lactic Acid level (Lactate) 1.8 mmol/L (0.5-2.2)
--- NOTE | 2021-04-18 14:43 | PC.PHAR ---
pt states his daughter takes care of his medications-pts daughter christian [phone] verified pts medications-states the pts lasix 20mg bid filled on 03/12/21 90d/s and kcl 20meq daily filled on 03/13/21 90d/s was dced on his last er visit from [facility]
--- NOTE | 2021-04-18 15:29 | P.HP_ITS ---
Providers/Chief Complaint Primary Care Provider: Daniel Nogueira DO Chief Complaint: SOB, HARD TO BREATH PCP SENT OVER History of Present Illness Gregg Babcock is a 65 year old male with past medical history of aspergillosis, coronary artery disease, pulmonary fibrosis and other conditions (see past medical history section) presents to the hospital today from pulmonary rehab. He has been going to pulmonary rehab for few weeks now and is able to do 30 minutes normally but today after 3 minutes he desaturated down to low 80s and required 8 L nasal cannula oxygen. He was told by the scrap shear operator to go to the ER. Patient states for about 1 week he has been feeling sick and has had increased sputum production and cough. He is vaccinated for Covid including the booster shot. He states that he is on a lung transplant list and is awaiting transplant as well. He was placed on 5 days of prednisone along with antibiotics which she is still taking. He was given a Z-Lazaro and doxycycline from what I can see from the records. Otherwise denies any chest pain, active shortness of breath, abdominal pain, nausea, vomiting, constipation, back pain. Patient did see his transportation solutions manager as well yesterday at which point he did report a 4 pound weight loss. He is on Cardizem 240 daily and Lasix 40 daily. He does feel tachycardic and having palpitations. He is unable to walk more than 15 feet without having to stop. ED course: One , respiratory 24, pulse rate 105, 98 temperature, pulse ox 96% on 8 L nasal cannula. WBC count 18.4. CTA chest done which ruled out PE and there is no evidence of pneumonia. Hospitalist was requested to admit patient for new oxygen requirement and exacerbation of pulmonary fibrosis. Incidental finding on CTA chest did show T6-T11 compression fractures which seem to be new compared to imaging from September. Review of Systems General: Reports: 10 or more systems reviewed and unremarkable except in HPI and below Medications/Allergies Home Medications Medication Instructions Recorded Confirmed Last Taken Type escitalopram oxalate 10 mg tablet 20 mg PO DAILY tab 03/14/20 04/18/21 01/20/21 History Breztri Aerosphere 2 inh INHALATION BID 09/12/20 04/18/21 01/20/21 History albuterol sulfate [ProAir HFA] 2 puff INHALATION Q4H PRN 09/12/20 04/18/21 Unknown History fluticasone propionate 2 spray INTRANASAL DAILY 09/12/20 04/18/21 Unknown History nitroglycerin 0.4 mg sublingual 0.4 mg SUBLINGUAL Q5M PRN #25 tab 09/12/2009/02 Unknown Rx tablet lorazepam [Ativan] 1 mg PO TID PRN 09/13/20 04/18/21 Unknown History acetaminophen 325 mg tablet 650 mg PO Q6H PRN #240 tab 09/28/20 04/18/21 Unknown Rx [id number] Ventilator 10/02/20 04/18/21 Unknown History oxygen-air delivery systems 10/02/20 04/18/21 Unknown History atorvastatin 20 mg tablet 20 mg PO DAILY 90 Days #90 tab 10/18/20 04/18/21 01/20/21 Rx benzonatate 100 mg capsule 100 mg PO TID PRN 90 Days #270 cap 11/10/20 04/18/21 Unknown Rx clopidogrel 75 mg tablet 75 mg PO DAILY 90 Days #90 tab 11/15/20 04/18/21 01/20/21 Rx sulfamethoxazole 800 1 tab PO .COMPLEX 90 Days #45 tab 11/15/20 04/18/21 Unknown Rx mg-trimethoprim 160 mg tablet cyclobenzaprine 10 mg tablet 10 mg PO BEDTIME PRN tab 12/08/20 04/18/21 01/20/21 History pirfenidone 801 mg tablet 801 mg PO TID 12/11/20 04/18/21 01/20/21 History apixaban 5 mg tablet 5 mg PO BID 90 Days #180 tab 12/15/20 04/18/21 01/20/21 Rx ondansetron 4 mg PO Q8H PRN #7 tab 12/30/20 04/18/21 Unknown Rx loratadine 10 mg PO DAILY 01/21/21 04/18/21 01/20/21 History melatonin 10 mg PO BEDTIME 01/21/21 04/18/21 01/19/21 History diltiazem HCl 240 mg 240 mg PO DAILY #90 cap 03/12/21 04/18/21 Unknown Rx capsule,extended release 24 hr prednisone 10 mg tablet 10 mg PO QAM 04/17/21 04/18/21 Unknown History Vitamin C 1 tab PO DAILY 04/18/21 04/18/21 Unknown History Vitamin D3 Gummies 1 tab PO DAILY 04/18/21 04/18/21 Unknown History albuterol sulfate 2.5 mg INHALATION QID PRN 04/18/21 04/18/21 Unknown History doxycycline hyclate 100 mg PO BID 04/18/21 04/18/21 04/17/21 History pt finished 04/17/20 sildenafil 25 mg PO PRN PRN 04/18/21 04/18/21 Unknown History Allergies Allergy/AdvReac Type Severity Reaction Status Date / Time insect venom Allergy ALGY-Difficulty Verified 04/18/21 09:53 Swallowing PFSH Acute PFSH: Medical History Abnormal stress test 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 Aspergillosis Atrial tachycardia COPD (chronic obstructive pulmonary disease) Coronary artery disease Cubital tunnel syndrome on right Diabetes Diabetes Emphysema of lung Erectile dysfunction Gross hematuria High risk medication use Joint pain Left lower quadrant pain P-ANCA titer positive Pneumocystis jiroveci pneumonia Pulmonary nodule Surgical absence of teeth SVT (supraventricular tachycardia) Tobacco abuse Urolithiasis Surgical History H/O neck surgery H/O: vasectomy History of ankle surgery History of dental surgery History of facial surgery History of lung biopsy S/P lobectomy of lung Family History Father , AT AGE 78 Cancer Hypertension Mother Diabetes Brother Diabetes Sister Diabetes Father Cancer Prostate Social History Quit status (tobacco): has quit using tobacco Year quit tobacco: 2019 - 2PPD x 40 Years Second hand smoke exposure: No Alcohol intake: never Marital status: Number of children: 3 Number of grandchildren: 4 Current occupational status: retired and disabled History of recent travel: No Dian/Yarsanism: Latter Day Vitals/I&O/Wt Last Vital Signs Temp 98.0 F 04/18/21 09:54 Pulse 105 H 04/18/21 13:00 Resp 24 H 04/18/21 09:54 BP 108/75 04/18/21 09:54 Pulse Ox 96 04/18/21 13:00 Weight last 48 hrs Weight 77.111 kg Physical Exam Narrative: EXAM NARRATIVE: General: Alert oriented x3, patient seen laying in bed on 4 L nasal cannula at rest. His requirement does go up to 8 to 9 L on exertion. No conversational dyspnea present, normal respiratory effort. HEENT: Normocephalic, atraumatic, EOMI, Cardio: Regular rate rhythm, normal S1-S2, no murmurs rubs gallops, Respiratory: Good bilateral air entry except the bases, coarse breath sounds present bilaterally with diminished air entry at bases. GI: Abdomen soft, nontender, nondistended, bowel sounds + Behavior: Appropriate and cooperative Extremities: Pulses 2+, no edema, no cyanosis Data : 04/18/21 11:56 04/18/21 11:56 A&P Assessment and plan (1) Pulmonary fibrosis: Status: Chronic (2) Coronary artery disease: Status: Chronic Qualifiers: Coronary Disease-Associated Artery/Lesion type: [place] artery [place] vs. transplanted heart: [place] heart Associated angina: with unspecified angina Qualified Code(s): I25.119 - Atherosclerotic heart disease of [place] coronary artery with unspecified angina pectoris (3) Long-term current use of steroids: Status: Chronic Additional A&P Information #Acute exacerbation of interstitial lung disease/pulmonary fibrosis #History of atrial fibrillation on Eliquis and diltiazem #Long-term use of steroids #Bactrim prophylaxis for PCP long-term #History of coronary artery disease #Steroid-induced diabetes #Incidental finding of thoracic compression fractures. ?WBC count is 18.4 but patient was recently on steroids outpatient namely prednisone 60 daily which was being tapered off. Lactic acid is 2.[address] him on normal saline 75 cc/h for total of 1 L. ?I will start Solu-Medrol 60 IV twice daily and de-escalate pending clinical course ?We will check bacterial antigens, MRSA nares PCR, sputum Gram stain and culture ?Continue Bactrim prophylaxis for PCP ?Continue diltiazem and Eliquis ?We will check procalcitonin. I will place him on azithromycin. We will hold off on other antibiotics for now. Patient has been afebrile. ?Sliding scale insulin for hyperglycemia secondary to steroids ?Placed on DuoNeb every 4 hours. Since patient is getting IV steroids I will avoid inhaled steroid at the same time. ?Continue pirfenidone for patient for pulmonary fibrosis. ?Incidental finding of thoracic compression fractures. Will consult Dr. Feng for recommendations. Will place a TLSO brace today. Full code DVT prophylaxis on Eliquis Attestations Medical Necessity Statement*: Pt will cross 2 midnights. Coding Level of Care Code Acute Sign Maintenance for Chg Fwd Diagnoses Pulmonary fibrosis J84.10 Coronary artery disease I25.119 Coronary Disease-Associated Artery/Lesion type: [place] artery [place] vs. transplanted heart: [place] heart Associated angina: with unspecified angina Long-term current use of steroids
--- NOTE | 2021-04-18 15:52 | CTR_ITS ---
PROCEDURE INFORMATION: Exam: CT Thoracic Spine Without Contrast Exam date and time: 04/18/2021 3:52 PM Age: 65 years old Clinical indication: Injury or trauma; Fall; Blunt trauma (contusions or hematomas); Additional info: Compression fractures TECHNIQUE: Imaging protocol: Computed tomography images of the thoracic spine without contrast. Total images: 461 Radiation optimization: All CT scans at this facility use at least one of these dose optimization techniques: automated exposure control; mA and/or kV adjustment per patient size (includes targeted exams where dose is matched to clinical indication); or iterative reconstruction. COMPARISON: 1. CT angio chest PE protcl [id number] 04/18/2021 1:[address] angio chest PE protcl [id number] 09/12/2020 7:[address] kidney stone [id number] 01/21/2021 3:37 AM RADIATION DOSE METRICS: Total DLP (mGy-cm): 1526.57 FINDINGS: Vertebrae: Examination reveals compression wedge deformities of T6, T7, T8, T9, and T11. The compression wedge deformities of T6 and T11 have been present since the examinations dating back to 09/12/2020. The compression wedge deformities of T7, T8, and T9 have occurred in the interim; but, there are no definitive findings to suggest that these represent recent compression wedge fractures. No retropulsion component resulting in central canal stenosis or neural foramen stenosis identified. Discs/Spinal canal/Neural foramina: Examination reveals a mild diffuse posterior annular disc bulge T4/T5 resulting in mild central canal stenosis and mild thecal cord effacement. Remaining intervertebral disc levels without evidence for herniated nucleus pulposis or significant posterior annular disc bulge that would result in significant central canal stenosis or evidence of neural foramen stenosis. Soft tissues: No visible significant paraspinal muscle atrophy. Lungs: Evidence of chronic lung disease to include peripheral acinar emphysema and usual interstitial pneumonitis. CT/CT thoracic spin wo con* [id number] IMPRESSION: 1. No definitive evidence of an acute compression wedge fracture of the thoracic spine. 2. Examination reveals a mild diffuse posterior disc bulge T4/T5 resulting in mild central canal stenosis and mild thecal cord effacement.
--- NOTE | 2021-04-18 15:52 | CTR_ITS ---
PROCEDURE INFORMATION: Exam: CT Lumbar Spine Without Contrast Exam date and time: 04/18/2021 3:52 PM Age: 65 years old Clinical indication: Injury or trauma; Fall; Blunt trauma (contusions or hematomas); Additional info: Compression fractures TECHNIQUE: Imaging protocol: Computed tomography images of the lumbar spine without contrast. Total images: 414 Radiation optimization: All CT scans at this facility use at least one of these dose optimization techniques: automated exposure control; mA and/or kV adjustment per patient size (includes targeted exams where dose is matched to clinical indication); or iterative reconstruction. COMPARISON: 1. CT thoracic spin wo con* [id number] 04/18/2021 4:[address] kidney stone [id number] 01/21/2021 3:37 AM RADIATION DOSE METRICS: Total DLP (mGy-cm): 7.23 FINDINGS: Vertebrae: No acute fracture. Normal alignment. Old mild compression deformity L1. No retropulsion fragment. No visible spondylolysis or spondylolisthesis. No visible significant facet arthrosis. Discs/Spinal canal/Neural foramina: Mild posterior annular disc bulge L5/S1 not resulting in significant central canal stenosis or neural foramen stenosis. No significant disc protrusion. No severe spinal canal stenosis. No significant neural foraminal narrowing. Soft tissues: No visible significant paraspinal muscle atrophy. CT/CT lumbar spine wo con* [id number] IMPRESSION: No acute findings.
[2021-04-18 16:24] LABS: Procalcitonin 0.15 ng/mL (0-0.5)
[2021-04-18] MEDS: pantoprazole 40 mg SDV IVP (18:13)
[2021-04-18] MEDS: azithromycin 500 MG in sodium chloride 0.9% 250 ML 250 MG IV (18:13)
[2021-04-18] MEDS: apixaban 5 mg Tablet PO (18:15)
[2021-04-18] MEDS: sulfamethoxazole-trimeth DS 160-800 mg Tablet 1 TAB PO (18:18)
[2021-04-18] MEDS: PIRFENIDONE 801 MG 801 EACH PO (18:33)
--- NOTE | 2021-04-18 20:07 | PC.NURSE ---
i reported high pulse 116 to nurse
[2021-04-18] MEDS: LORazepam 1 mg Tablet PO (21:08)
[2021-04-18] MEDS: cyclobenzaprine 10 mg Tablet PO (21:08)
[2021-04-19] VITALS (13 sets, daily range): BP systolic 110–116; BP diastolic 64–78; PULSE 99–119; RESP 17–20; TEMP 36.4–36.7; O2SAT 93–98
--- NOTE | 2021-04-19 00:01 | PC.NURSE ---
i reported high pulse 108 to nurse
[2021-04-19 06:45] LABS: Basophils % 0.3 %; Hemoglobin 12.1 g/dL (11.7-16.6); Lymphocytes # 1.9 10^3/uL (0.8-4.8); Lymphocytes % 18.6 %; Mean Corpuscular HGB Conc 31.8 g/dL (30.0-36.0); Mean Corpuscular Hemoglobin 26.1 pg (28.0-34.0); Mean Corpuscular Volume 81.9 fl (80-94); Mean Platelet Volume 8.9 fL (7.4-10.4); Monocytes # 0.2 10^3/uL (0.2-0.9); Monocytes % 1.5 %; Neutrophils # 7.78 10^3/uL (1.8-7.7); Neutrophils % 77.5 %; Nucleated Red Blood Cells % 0 %; Platelet Count 410 10^3/cmm (130-400); Red Blood Count 4.64 10^6/uL (4.1-5.3); Red Cell Distribution Width 14.8 % (12.1-15.1)
[2021-04-19 06:49] LABS: Alanine Aminotransferase 19 U/L (0-41); Albumin Level 3.5 g/dL (3.5-5.2); Alkaline Phosphatase 85 IU/L (40-130); Anion Gap 17.2 (5-19); Aspartate Amino Transferase 12 U/L (0-40); Blood Urea Nitrogen 18 mg/dL (8-23); Calcium 9.2 mg/dL (8.5-10.5); Carbon Dioxide 23 mmol/L (22-29); Chloride 98 mmol/L (98-107); Globulin 2.5 g/dL (1.3-4.6); Glomerular Filtration Rate 136.1 mL/min (90-130); Glucose 136 mg/dL (65-115); Osmolality Calculated 280 mOsm/kg (285-295); Potassium 5.2 mmol/L (3.5-5.1); Sodium 133 mmol/L (136-145); Total Bilirubin 0.2 mg/dL (0.15-1.2)
[2021-04-19] MEDS: ipratropium-albuterol 3 mL Neb INHALATION ×4 (07:52→20:35)
[2021-04-19] MEDS: dilTIAZem ER (24HR) 240 mg Capsule PO (08:12)
[2021-04-19] MEDS: escitalopram 10 mg Tablet 20 MG PO (08:13)
[2021-04-19] MEDS: apixaban 5 mg Tablet PO ×2 (08:13→16:55)
[2021-04-19] MEDS: clopidogrel 75 mg Tablet PO (08:13)
[2021-04-19] MEDS: loratadine 10 mg Tablet PO (08:13)
[2021-04-19] MEDS: atorvastatin 40 mg Tablet 20 MG PO (08:18)
[2021-04-19] MEDS: PIRFENIDONE 801 MG 801 EACH PO ×3 (08:22→17:00)
--- NOTE | 2021-04-19 09:41 | PM.CONSULT ---
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 Incidental findings of thoracic and lumbar fractures following CT scans and orthopedics was consulted. He was placed in a TLSO brace upon his hospitalization. He was evaluated in room 262 with no family present denying any back pain. He denies any recent injuries to his back. He has had old injuries as far back as 2 years ago but nothing recent. He denies any arm pain denies any leg pain. He he has taken steroids in the past for his lung conditions. He denies any pain worse at night. Denies any night sweats or chills. Denies any cancer history. Currently is comfortable and is hospital bed without any back pain complaints. An extensive review of the patient's past medical history, surgical history, allergies, medications, family history, social history, and review of systems was completed Review of Systems General: Reports: 10 or more systems reviewed and unremarkable except in HPI and below Const: Denies: fever(s) or chills Eyes: Denies: change in vision or photophobia ENMT: Denies: enlarged tonsils or mouth pain Resp: Reports: dyspnea, non-productive cough and other GI: Denies: abdominal pain or diarrhea : Denies: dysuria Musc: Denies: extremity pain or joint warmth Skin/Breast: Denies: new lesions Neuro: Denies: weakness in extremities Psych: Reports: sleeping more and other (Normal mood) Jamari/Lymph: Denies: easy bruising All/Imm: Denies: acute wheezing Meds/Allergies Home Medications and Allergies Home Medications Medication Instructions Recorded Confirmed Last Taken Type escitalopram oxalate 10 mg tablet 20 mg PO DAILY tab 03/14/20 04/18/21 01/20/21 History Breztri Aerosphere 2 inh INHALATION BID 09/12/20 04/18/21 01/20/21 History albuterol sulfate [ProAir HFA] 2 puff INHALATION Q4H PRN 09/12/20 04/18/21 Unknown History fluticasone propionate 2 spray INTRANASAL DAILY 09/12/20 04/18/21 Unknown History nitroglycerin 0.4 mg sublingual 0.4 mg SUBLINGUAL Q5M PRN #25 tab 09/12/20 04/18/21 Unknown Rx tablet lorazepam [Ativan] 1 mg PO TID PRN 09/13/20 04/18/21 Unknown History acetaminophen 325 mg tablet 650 mg PO Q6H PRN #240 tab 09/28/20 04/18/21 Unknown Rx [id number] Ventilator 10/02/20 04/18/21 Unknown History oxygen-air delivery systems 10/02/20 04/18/21 Unknown History atorvastatin 20 mg tablet 20 mg PO DAILY 90 Days #90 tab 10/18/20 04/18/21 01/20/21 Rx benzonatate 100 mg capsule 100 mg PO TID PRN 90 Days #270 cap 11/10/20 04/18/21 Unknown Rx clopidogrel 75 mg tablet 75 mg PO DAILY 90 Days #90 tab 11/15/20 04/18/21 01/20/21 Rx sulfamethoxazole 800 1 tab PO .COMPLEX 90 Days #45 tab 11/15/20 04/18/21 Unknown Rx mg-trimethoprim 160 mg tablet cyclobenzaprine 10 mg tablet 10 mg PO BEDTIME PRN tab 12/08/20 04/18/21 01/20/21 History pirfenidone 801 mg tablet 801 mg PO TID 12/11/20 04/18/21 01/20/21 History apixaban 5 mg tablet 5 mg PO BID 90 Days #180 tab 12/15/20 04/18/21 01/20/21 Rx ondansetron 4 mg PO Q8H PRN #7 tab 12/30/20 04/18/21 Unknown Rx loratadine 10 mg PO DAILY 01/21/21 04/18/21 01/20/21 History melatonin 10 mg PO BEDTIME 01/21/21 04/18/21 01/19/21 History diltiazem HCl 240 mg 240 mg PO DAILY #90 cap 03/12/21 04/18/21 Unknown Rx capsule,extended release 24 hr prednisone 10 mg tablet 10 mg PO QAM 04/17/21 04/18/21 Unknown History Vitamin C 1 tab PO DAILY 04/18/21 04/18/21 Unknown History Vitamin D3 Gummies 1 tab PO DAILY 04/18/21 04/18/21 Unknown History albuterol sulfate 2.5 mg INHALATION QID PRN 04/18/21 04/18/21 Unknown History doxycycline hyclate 100 mg PO BID 04/18/21 04/18/21 04/17/21 History pt finished 04/17/20 sildenafil 25 mg PO PRN PRN 04/18/21 04/18/21 Unknown History Allergies Allergy/AdvReac Type Severity Reaction Status Date / Time insect venom Allergy ALGY-Difficulty Verified 04/18/21 09:53 Swallowing Current Medications Current Medications Generic Name Dose Route Start Last Admin Trade Name Freq PRN Reason Stop Dose Admin Albuterol/Ipratropium 3 ml 04/18/21 16:00 04/19/21 07:52 Ipratropium-Albuterol 3 Ml Neb INHALATION 3 ml QID.RESPIRATORY ANISHA Administration Apixaban 5 mg 04/18/21 18:00 04/19/21 08:13 Apixaban 5 Mg Tablet PO 5 mg BID ANISHA Administration Atorvastatin Calcium 20 mg 04/19/21 09:00 04/19/21 08:18 Atorvastatin 40 Mg Tablet PO 20 mg DAILY ANISHA Administration Clopidogrel Bisulfate 75 mg 04/19/21 09:00 04/19/21 08:13 Clopidogrel 75 Mg Tablet PO 75 mg DAILY ANISHA Administration Cyclobenzaprine HCl 10 mg 04/18/21 16:54 04/18/21 21:08 Cyclobenzaprine 10 Mg Tablet PO 10 mg BEDTIME PRN Administration Muscle Spasm Diltiazem HCl 240 mg 04/19/21 09:00 04/19/21 08:12 Diltiazem Er (24hr) 240 Mg Capsule PO 240 mg DAILY ANISHA Administration Escitalopram Oxalate 20 mg 04/19/21 09:00 04/19/21 08:13 Escitalopram 10 Mg Tablet PO 20 mg DAILY ANISHA Administration Azithromycin 500 mg/ Sodium 250 mls @ 250 mls/hr 04/18/21 16:54 04/18/21 19:51 Chloride IV Infused Q24H ANISHA Infusion Protocol Loratadine 10 mg 04/19/21 09:00 04/19/21 08:13 Loratadine 10 Mg Tablet PO 10 mg DAILY ANISHA Administration Lorazepam 1 mg 04/18/21 16:54 04/18/21 21:08 Lorazepam 1 Mg Tablet PO 1 mg TID PRN Administration Anxiety Methylprednisolone Sodium Succinate 60 mg 04/18/21 18:00 01/06/22 08:13 Methylprednisolone Sod Succ 125 Mg/2 Ml Inj IVP 60 mg BID ANISHA Administration Non-Formulary Medication 801 mg 04/18/21 18:30 04/19/21 08:22 Pirfenidone [Esbriet] PO 801 mg TIDWM ANISHA Administration Pantoprazole Sodium 40 mg 04/18/21 17:30 04/18/21 18:13 Pantoprazole 40 Mg Sdv IVP 40 mg Q24H ANISHA Administration Trimethoprim/Sulfamethoxazole 1 tab 04/18/21 17:30 04/18/21 18:18 Sulfamethoxazole-Trimeth Ds 160-800 Mg Tablet PO 1 tab MoWeFr ANISHA Administration Protocol PFSH Acute PFSH: Medical History Abnormal stress test 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 Aspergillosis Atrial tachycardia COPD (chronic obstructive pulmonary disease) Coronary artery disease Cubital tunnel syndrome on right Diabetes Diabetes Emphysema of lung Erectile dysfunction Gross hematuria High risk medication use Joint pain Left lower quadrant pain P-ANCA titer positive Pneumocystis jiroveci pneumonia Pulmonary nodule Surgical absence of teeth SVT (supraventricular tachycardia) Tobacco abuse Urolithiasis Surgical History H/O neck surgery H/O: vasectomy History of ankle surgery History of dental surgery History of facial surgery History of lung biopsy S/P lobectomy of lung Family History Father , AT AGE 78 Cancer Hypertension Mother Diabetes Brother Diabetes Sister Diabetes Father Cancer Prostate Social History Quit status (tobacco): has quit using tobacco Year quit tobacco: 2019 - 2PPD x 40 Years Second hand smoke exposure: No Alcohol intake: never Marital status: Number of children: 3 Number of grandchildren: 4 Current occupational status: retired and disabled History of recent travel: No Dian/L[employer] Day: Episcopal Dietary Habits: Current diet type/program: regular Caffeine: Yes Caffeine intake frequency: coffee Exercise: What type of physical activity do you participate in?: walking Physical activity functional status: independent ambulation Safety: Seatbelt use: never Drive intoxicated or ride with intoxicated commercial front load driver?: never Vitals/I&O/Wt Last Vital Signs Temp 97.6 F 04/19/21 07:46 Pulse 116 H 04/19/21 07:55 Resp 20 H 04/19/21 07:55 BP 111/76 04/19/21 07:46 Pulse Ox 93 04/19/21 07:55 04/18/21 04/19/21 04/19/21 22:59 06:59 14:59 Intake Total 550 / 550 360 / 360 Output Total 300 / 300 400 / 700 Balance 250 / 250 -400 / -150 360 / 360 Weight last 48 hrs Weight 170 lb Weight 170 lb Physical Exam Narrative: EXAM NARRATIVE: Patient presents with normal gait. Demonstrates raising up onto heels and toes without difficulty. Exhibits normal coordination and normal stability. No palpatory or percussion pain throughout the paraspinous musculature of the thoracolumbar spine. Examination reveals normal alignment, normal functional range of motion of the thoracolumbar spine with Flexion to 55 degrees, extends 15 degrees, laterally bends 20 degrees symmetrically. Normal sensation to light touch through all dermatomal layers. Normal sensation light touch down both lower extremities with 5/5 motor strength throughout all motor groups. No palpable pain over the SI joints bilaterally. Negative Gordy and Fabere sign. Negative straight leg raise bilaterally. Skin is clear warm with normal station light touch calves are supple with no medial thigh tenderness negative Homans' sign. No palpable lymphadenopathy bilaterally. Reflexes are 2+ and symmetric about the knees and Achilles. No hyperreflexia or clonus. Downgoing Babinski's bilaterally. Dorsalis pedis and posterior tibial pulses are 2+. No palpable edema bilaterally. Const: COMMON NORMALS: patient oriented x3 HENMT: COMMON NORMALS: normocephalic and atraumatic HEAD & SCALP: normocephalic and atraumatic Resp: COMMON NORMALS: normal respiratory effort Cardio: COMMON NORMALS: regular rate and regular rhythm RATE: regular rate RHYTHM: regular rhythm GI: COMMON NORMALS: Soft to palpation PALPATION: Yes Soft to palpation : COMMON NORMALS: Yes no CVA tenderness BLADDER/KIDNEY EXAM: Yes no CVA tenderness Back/Pelvis: COMMON NORMALS: no CVA tenderness Extremity: COMMON NORMALS: full ROM Neuro: COMMON NORMALS: patient oriented x3 and moves all extremities Psych: COMMON NORMALS: cooperative Data Micro: Micro: Microbiology 04/18/21 17:40 Blood Culture - Pr eliminary Blood SPECIMEN [facility]LEC 04/18/21 17:42 Blood Culture - Pr eliminary Blood SPECIMEN [facility] A&P Assessment and plan (1) Fracture, thoracic vertebra, compression: Currently patient is asymptomatic for any back pain even though the CT scans show compression fractures at T7, T8, T9, T11 and L1. Encouraged the patient to continue walking program be cautious with bending lifting or twisting activities. All these fractures appear to be old. Should his symptoms change and become more painful then consideration of an MRI scan of his thoracic and lumbar spine at that time. At this point orthopedic will sign off and see him back if his symptoms change. Discussed this at length with Dr. Feng agrees above-stated plan. He does not need to wear the TLSO brace. Status: Acute (2) Lumbar compression fracture: Status: Acute Coding Level of Care Code Acute Marine Firer for [facility] Diagnoses Fracture, thoracic vertebra, compression S22.000A Lumbar compression fracture S32.000A
--- NOTE | 2021-04-19 11:08 | P.PN_ITS ---
Subjective Subjective: Interval history: Pt feels well today and on 6 L NC but not wearing his oxypendant. He has no new symptoms since admission. Denies CP, SOB. Vitals/I&O/Wt Last Vital Signs Temp 97.6 F 04/19/21 07:46 Pulse 116 H 04/19/21 07:55 Resp 20 H 04/19/21 07:55 BP 111/76 04/19/21 07:46 Pulse Ox 93 04/19/21 07:55 04/18/21 04/19/21 04/19/21 22:59 06:59 14:59 Intake Total 550 / 550 360 / 360 Output Total 300 / 300 400 / 700 Balance 250 / 250 -400 / -150 360 / 360 Weight last 48 hrs Weight 77.111 kg Weight 77.111 kg Physical Exam Narrative: EXAM NARRATIVE: General: Alert oriented x3, patient seen laying in bed on 6 L nasal cannula at rest. His requirement does go up to 8 to 9 L on exertion. No conversational dyspnea present, normal respiratory effort. Not wearing oxypendant. HEENT: Normocephalic, atraumatic, EOMI, Cardio: Regular rate rhythm, normal S1-S2, no murmurs rubs gallops, Respiratory: Good bilateral air entry except the bases, coarse breath sounds present bilaterally with diminished air entry at bases. GI: Abdomen soft, nontender, nondistended, bowel sounds + Behavior: Appropriate and cooperative Extremities: Pulses 2+, no edema, no cyanosis Data : 04/19/21 05:41 04/19/21 05:41 Micro: Microbiology 04/18/21 17:40 Blood Culture - Preliminary Blood SPECIMEN COLLECTED 04/18/21 17:42 Blood Culture - Preliminary Blood SPECIMEN COLLECTED A&P Assessment and plan (1) Pulmonary fibrosis: Status: Chronic (2) Coronary artery disease: Status: Chronic Qualifiers: Coronary Disease-Associated Artery/Lesion type: [place] artery Habematolel vs. transplanted heart: [place] heart Associated angina: with unspecified angina Qualified Code(s): I25.119 - Atherosclerotic heart disease of [place] coronary artery with unspecified angina pectoris (3) Long-term current use of steroids: Status: Chronic Additional A&P Information #Acute exacerbation of interstitial lung disease/pulmonary fibrosis #History of atrial fibrillation on Eliquis and diltiazem #Long-term use of steroids #Bactrim prophylaxis for PCP long-term #History of coronary artery disease #Steroid-induced diabetes #Incidental finding of thoracic compression fractures. ?WBC count is 18.4 on admission and now down to 10. Pt was on steroids outpatient prior to admission. - Switch IV to oral steroids. - Prednisone 60 mg x 7 days, 30 mg x 7 days, 15 mg x 7 days and then back down to 10 mg daily. Will need follow up appointment at discharge with Dr. Mayfield. - Will place oxypendant today and monitor pt in hospital overnight as per pulmonary recommendations. ?We will check bacterial antigens, MRSA nares PCR, sputum Gram stain and culture, pending. ?Continue Bactrim prophylaxis for PCP ?Continue diltiazem and Eliquis ?Finish azithromycin for 5 days total. ?Sliding scale insulin for hyperglycemia secondary to steroids ?Placed on DuoNeb every 4 hours. ?Continue pirfenidone for patient for pulmonary fibrosis. ?Incidental finding of thoracic compression fractures. Will consult Dr. Feng for recommendations. Will place a TLSO brace today. Dr. Feng saw patient. He will need outpatient follow up. No plan for intervention during hospital stay. Full code DVT prophylaxis on Eliquis Attestations Medical Necessity Statement*: > 24 hour stay today for monitoring oxygen requirements on oral steroids. Coding Level of Care Code Acute Skiver Blockers for [facility] Diagnoses Pulmonary fibrosis J84.10 Coronary artery disease I25.119 Coronary Disease-Associated Artery/Lesion type: [place] artery Habematolel vs. transplanted heart: [place] heart Associated angina: with unspecified angina Long-term current use of steroids
[2021-04-19] MEDS: predniSONE 20 mg Tablet 60 MG PO (13:11)
[2021-04-19] MEDS: pantoprazole 40 mg SDV IVP (16:36)
[2021-04-19] MEDS: azithromycin 500 MG in sodium chloride 0.9% 250 ML 250 MG IV (16:49)
[2021-04-19] MEDS: cyclobenzaprine 10 mg Tablet PO (21:58)
[2021-04-19] MEDS: LORazepam 1 mg Tablet PO (21:59)
[2021-04-20] VITALS (9 sets, daily range): BP systolic 86–112; BP diastolic 46–74; PULSE 90–109; RESP 16–18; TEMP 36.7–37.1; O2SAT 94–100
[2021-04-20 06:58] LABS: Basophils % 0.1 %; Hematocrit 35.7 % (42.0-52.0); Hemoglobin 11.4 g/dL (11.7-16.6); Lymphocytes # 2.1 10^3/uL (0.8-4.8); Lymphocytes % 13.4 %; Mean Corpuscular HGB Conc 31.9 g/dL (30.0-36.0); Mean Corpuscular Hemoglobin 25.7 pg (28.0-34.0); Mean Corpuscular Volume 80.6 fl (80-94); Monocytes # 1.1 10^3/uL (0.2-0.9); Monocytes % 7.1 %; Neutrophils # 12.47 10^3/uL (1.8-7.7); Neutrophils % 78.1 %; Nucleated Red Blood Cells % 0 %; Platelet Count 412 10^3/cmm (130-400); Red Blood Count 4.43 10^6/uL (4.1-5.3); Red Cell Distribution Width 14.7 % (12.1-15.1)
[2021-04-20 07:12] LABS: Anion Gap 15.8 (5-19); Blood Urea Nitrogen 24 mg/dL (8-23); Carbon Dioxide 23 mmol/L (22-29); Chloride 102 mmol/L (98-107); Glomerular Filtration Rate 136.1 mL/min (90-130); Glucose 111 mg/dL (65-115); Magnesium 2.1 mg/dL (1.7-2.3); Osmolality Calculated 287 mOsm/kg (285-295); Potassium 4.8 mmol/L (3.5-5.1); Sodium 136 mmol/L (136-145)
[2021-04-20] MEDS: ipratropium-albuterol 3 mL Neb INHALATION ×2 (08:02→11:17)
[2021-04-20] MEDS: clopidogrel 75 mg Tablet PO (08:24)
[2021-04-20] MEDS: dilTIAZem ER (24HR) 240 mg Capsule PO (08:24)
[2021-04-20] MEDS: predniSONE 20 mg Tablet 60 MG PO (08:25)
[2021-04-20] MEDS: escitalopram 10 mg Tablet 20 MG PO (08:25)
[2021-04-20] MEDS: loratadine 10 mg Tablet PO (08:25)
[2021-04-20] MEDS: atorvastatin 40 mg Tablet 20 MG PO (08:26)
[2021-04-20] MEDS: apixaban 5 mg Tablet PO (08:27)
[2021-04-20] MEDS: PIRFENIDONE 801 MG 801 EACH PO (08:31)
--- NOTE | 2021-04-20 13:20 | PM.DCS ---
Discharge Providers Date of Admission: 04/18/21 14:05 Date of Discharge: April 20, 2021 Attending Provider at Admission: Stephanie Moscoso MD Attending Provider at Discharge: Stephanie Moscoso MD Primary Care Provider: Daniel Nogueira DO Diagnoses at Discharge Discharge Diagnosis (1) Pulmonary fibrosis: Status: Chronic (2) Coronary artery disease: Status: Chronic Qualifiers: Associated angina: with unspecified angina Coronary Disease-Associated Artery/Lesion type: [place] artery [place] vs. transplanted heart: [place] heart Qualified Code(s): I25.119 - Atherosclerotic heart disease of [place] coronary artery with unspecified angina pectoris (3) Long-term current use of steroids: Status: Chronic Reason for Visit Reason for Visit: SOB, HARD TO BREATH PCP SENT OVER Hospital Course Hospital Course Gregg Babcock is a 65 year old male with past medical history of aspergillosis, coronary artery disease, pulmonary fibrosis and other conditions (see past medical history section) presents to the hospital today from pulmonary rehab. He has been going to pulmonary rehab for few weeks now and is able to do 30 minutes normally but today after 3 minutes he desaturated down to low 80s and required 8 L nasal cannula oxygen. He was told by the t rail turner to go to the ER. Patient states for about 1 week he has been feeling sick and has had increased sputum production and cough. He is vaccinated for Covid including the booster shot. He states that he is on a lung transplant list and is awaiting transplant as well. He was placed on 5 days of prednisone along with antibiotics which she is still taking. He was given a Z-Lazaro and doxycycline from what I can see from the records. Otherwise denies any chest pain, active shortness of breath, abdominal pain, nausea, vomiting, constipation, back pain. Patient did see his strip stamp straightener as well yesterday at which point he did report a 4 pound weight loss. He is on Cardizem 240 daily and Lasix 40 daily. He does feel tachycardic and having palpitations. He is unable to walk more than 15 feet without having to stop. ED course: One , respiratory 24, pulse rate 105, 98 temperature, pulse ox 96% on 8 L nasal cannula. WBC count 18.4. CTA chest done which ruled out PE and there is no evidence of pneumonia. Hospitalist was requested to admit patient for new oxygen requirement and exacerbation of pulmonary fibrosis. Incidental finding on CTA chest did show T6-T11 compression fractures which seem to be new compared to imaging from September. Course Patient was admitted due to increasing O2 reqiurements at pulm rehab. He was placed on Solumedrol 60 IV BID and pulm was consulted as curbside. Dr. Thrasher advised to place patient on a prednisone taper with 60 mg daily x7 days, 30 mg daily x 7 days, 15 mg daily x 7 days and then go back to 10 mg daily. He was also placed on oxypendant which brought down his O2 requirement significantly. Patient was discharged home after 48 hours of stay on 4-6L NC oxypendant. He was to f/u with Dr. Mayfield the following Friday for further instructions. During hospital stay CTA chest ruled out PE. Patient on eliquis 5 BID already. No pneumonia noted. Procal was negative, afebrile. He was found to have worsening thoracic fractures for which Dr. Feng was consulted. Patient to follow up with him as an outpatient. Daughter was updated over the phone. Physical Exam Narrative: EXAM NARRATIVE: Alert oriented x3, patient seen laying in bed on 6 L nasal cannula at rest with oxypendant. HEENT: Normocephalic, atraumatic, EOMI, Cardio: Regular rate rhythm, normal S1-S2, no murmurs rubs gallops, Respiratory: Good bilateral air entry except the bases, coarse breath sounds present bilaterally with diminished air entry at bases. GI: Abdomen soft, nontender, nondistended, bowel sounds + Behavior: Appropriate and cooperative Extremities: Pulses 2+, no edema, no cyanosis Discharge Data Data Completed and Pending: Completed Studies During Hospitalization Category Date Time Status CT angio chest PE protcl [id number] Urge nt Cat Scan 04/18/21 13:[address] lumbar spine w o con* [id number] Urgen t Cat Scan 04/18/21 15:[address] thoracic spin wo con* [id number] Urge nt Cat Scan 04/18/21 15:52 Completed XR chest 1V alcides ble [id number] Urgent Exams 04/18/21 10:23 Completed Pending at discharge Category Date Time Status Blood Culture Sta t Lab 04/18/21 17:40 Results Sputum Culture an d Gram Stain Stat Lab 04/18/21 15:40 Uncollected Urinalysis Routin e Lab 04/18/21 16:54 Uncollected Labs from last 24 hours 04/20/21 04/20/21 05:54 05:54 WBC 16.0 H RBC 4.43 Hgb 11.4 L Hct 35.7 L MCV 80.6 MCH 25.7 L MCHC 31.9 RDW 14.7 Plt Count 412 H MPV 9.0 Neut % (Auto) 78.1 Lymph % (Auto) 13.4 [place] % (Auto) 7.1 Eos % (Auto) 0.0 Baso % (Auto) 0.1 Neut # (Auto) 12.47 H Lymph # (Auto) 2.1 [place] # (Auto) 1.1 H Eos # (Auto) 0.0 Baso # (Auto) 0.0 Nucleated RBC % (a uto) 0 Nucleated RBCs # 0.0 Sodium 136 Potassium 4.8 Chloride 102 Carbon Dioxide 23 Anion Gap 15.8 BUN 24 H Creatinine 0.6 L GFR Calculation 136.1 H Glucose 111 Calculated Osmolal ity 287 Calcium 9.0 Magnesium 2.1 Vitals: Last Vital Signs Temp 98.1 F 04/20/21 12:00 Pulse 91 04/20/21 12:00 Resp 18 04/20/21 12:00 BP 112/74 04/20/21 12:00 Pulse Ox 94 04/20/21 12:00 Discharge Plan Discharge Patient Disposition: Home Condition: Stable Prescriptions: Continued diltiazem HCl 240 mg capsule,extended release 24hr 240 mg PO DAILY Qty: 90 RF: 3 escitalopram oxalate [Lexapro] 10 mg tablet 20 mg PO DAILY RF: 0 Esbriet 801 mg tablet 801 mg PO TID RF: 0 nitroglycerin [Nitrostat] 0.4 mg tablet, sublingual 0.4 mg sublingual Q5M PRN (Reason: chest pain) Qty: 25 RF: 3 acetaminophen [Tylenol] 325 mg tablet 650 mg PO Q6H PRN (Reason: pain) Qty: 240 RF: 3 atorvastatin 20 mg tablet 20 mg PO DAILY 90 Days Qty: 90 RF: 3 benzonatate [Tessalon Perles] 100 mg capsule 100 mg PO TID PRN (Reason: cough) 90 Days Qty: 270 RF: 2 clopidogrel 75 mg tablet 75 mg PO DAILY 90 Days Qty: 90 RF: 1 sulfamethoxazole-trimethoprim [Bactrim DS] 800-160 mg tablet 1 tab PO .COMPLEX 90 Days Qty: 45 RF: 6 Eliquis 5 mg tablet 5 mg PO BID 90 Days Qty: 180 RF: 0 cyclobenzaprine 10 mg tablet 10 mg PO BEDTIME PRN (Reason: Muscle Spasm) RF: 0 albuterol sulfate [ProAir HFA] 90 mcg/actuation Hfa Aerosol Inhaler 2 puff INHALATION Q4H PRN (Reason: Shortness Of Breath) RF: 0 fluticasone propionate 50 mcg/actuation spray,suspension 2 spray INTRANASAL DAILY RF: 0 Breztri Aerosphere 160-9-4.8 mcg/actuation HFA aerosol inhaler 2 inh inhalation BID RF: 0 lorazepam [Ativan] 1 mg Tablet 1 mg PO TID PRN (Reason: Anxiety) RF: 0 melatonin 10 mg tablet 10 mg PO BEDTIME RF: 0 loratadine 10 mg Tablet 10 mg PO DAILY RF: 0 ondansetron 4 mg tablet,disintegrating 4 mg PO Q8H PRN (Reason: nausea and vomiting) Qty: 7 RF: 0 albuterol sulfate 2.5 mg /3 mL (0.083 %) solution for nebulization 2.5 mg inhalation QID PRN (Reason: Shortness Of Breath) RF: 0 Vitamin C 1 tab PO DAILY RF: 0 Vitamin D3 Gummies 1 tab PO DAILY RF: 0 sildenafil 25 mg tablet 25 mg PO PRN PRN (Reason: sexual activity) RF: 0 Discontinued prednisone 10 mg tablet 10 mg PO QAM RF: 0 doxycycline hyclate 100 mg capsule 100 mg PO BID RF: 0 No Action prednisone 10 mg tablet PO RF: 0 (DME) oxygen-air delivery systems Device See Rx Instructions .Route RF: 0 (DME) [id number] Ventilator 0 .Route .MEDSUPPLY RF: 0 Discharge Orders: Discharge Order (Routine); Ordered 04/20/21 Ordered By: Stephanie Moscoso Referrals: Daniel Nogueira DO [Primary Care Provider] - 2 weeks Joaquín Mayfield MD [Physician] - 04/23/21 Patient Instructions: Fractures - Compression, Pulmonary Fibrosis (DC), Clamshell Brace (DC), Opioid Safety Discharge Attestations Time Spent in Discharge Care*: less than 30 min Status at Discharge: Cognitive status at discharge: cognitively intact, Behavioral status at discharge: cooperative, Quality Metrics Clinical Quality Measures During this hospital stay, did patient experience: None Coding Level of Care Code Acute Chg FW DC note Diagnoses Pulmonary fibrosis J84.10 Coronary artery disease I25.119 Associated angina: with unspecified angina Coronary Disease-Associated Artery/Lesion type: [place] artery [place] vs. transplanted heart: [place] heart Long-term current use of steroids
== END 2021-04-20 14:45 | disposition home or self-care (01) | DRG 197 ==
LOC: ER 11:58 → MEDSURG 16:39
PROVIDERS: Physician Assistant; Admitting Provider Internal Medicine; Emergency Provider Emergency Medicine; PCP Family Medicine; Visit Provider Internal Medicine
DX: J84.10 Pulmonary fibrosis, unspecified (principal); M48.54XA Collapsed vertebra, not elsewhere classified, thoracic region, initial encounter for fracture; M48.56XA Collapsed vertebra, not elsewhere classified, lumbar region, initial encounter for fracture; J43.9 Emphysema, unspecified; Z76.82 Awaiting organ transplant status; Z99.81 Dependence on supplemental oxygen; I25.119 Atherosclerotic heart disease of native coronary artery with unspecified angina pectoris; Z87.01 Personal history of pneumonia (recurrent); Z87.442 Personal history of urinary calculi; Z87.891 Personal history of nicotine dependence; Z90.2 Acquired absence of lung [part of]; I48.91 Unspecified atrial fibrillation; E09.9 Drug or chemical induced diabetes mellitus without complications; T38.0X5A Adverse effect of glucocorticoids and synthetic analogues, initial encounter; Z79.02 Long term (current) use of antithrombotics/antiplatelets; Z79.01 Long term (current) use of anticoagulants; Z79.51 Long term (current) use of inhaled steroids
CPT/HCPCS: 36415; 36600; 71045; 71275; 72128; 72131; 80048; 80051; 80053; 82330; 82805; 83605; 83735; 83880; 84145; 85025; 87040; 87426; 93005; 94640; 94664; 97116; 97162; 97760; 99285; C9113; J0456; J2930; J7050; J7512; L0456; Q9967

== ENCOUNTER 2021-05-02 10:25 | Inpatient (IN) | payer OTHER, SELFPAY ==
[2021-05-02] VITALS (16 sets, daily range): BP systolic 102–124; BP diastolic 77–82; PULSE 97–147; RESP 18–38; TEMP 38.1; O2SAT 71–99; BMI 24.3
--- NOTE | 2021-05-02 10:44 | XR_ITS ---
WS: [id number] Exam: XR chest 1V portable [id number] Date/Time of Exam: 05/02/2021 10:44 AM Reason For Exam: dyspnea/cough Comparison 04/18/2021. Infiltrates noted in the mid and lower lung zones with the honeycombing most likely chronic. Normal c ardiomediastinal silhouette. Signs of previous chest surgery on the right and thoracotomy. Fusion rosa dware partially seen in the lower cervical spine. No pleural effusion or pneumothorax. XR/XR chest 1V portable [id number] IMPRESSION: 1. Infiltrates in the bilateral mid and lower lung zones with honeycombing most likely chronic in nature. 2. Signs of previous right-sided chest surgery and thoracotomy.
--- NOTE | 2021-05-02 10:47 | ED_ITS ---
HPI - SOB/Dyspnea General: Chief Complaint: Shortness of Breath/Dyspnea Stated Complaint: Hyperventalation Time Seen by Provider: 05/02/21 10:40 History of Present Illness: HPI Narrative: 65-year-old male with a history of idiopathic pulmonary fibrosis presents to the emergency room with complaints of severe shortness of breath. He has not been taking prednisone 20 mg twice a day he seen the petrology teacher earlier today was decreased on Eliquis 2.5 mg twice daily. He previously had a pulmonary emboli and was on 5 mg twice daily. He has a known history of coronary artery disease as well. According to the note in the chart he was currently on 60 mg of prednisone daily and they were going to decrease him to 40 mg daily for 5 days then 20 mg daily. He denies any fever sweats or chills denies any myalgias. He also was reported to have a history of 2 pneumocystis and is on Bactrim on Friday. MD elicited complaint: shortness of breath and cough Pertinent past history: other (Interstitial fibrosis) Onset (ago): hour(s) Context: occurred during exertion Timing: constant Severity: moderate Exacerbating factors: exertion, movement and coughing Relieving factors: oxygen, rest and bronchodilators Known history of: other (Interstitial fibrosis) Associated symptoms: Reports cough and sense of impending doom; Deny abdominal pain, chest congestion, chest pain, diaphoresis, dizziness, extremity pain, fever(s), hemoptysis, lightheadedness, myalgias, nausea, orthopnea, palpitations, paresthesias, polydipsia, polyuria, rash, syncope or vomiting Treatment prior to arrival: oxygen and bronchodilator Review of Systems Const: Denies: fever(s) or diaphoresis ENMT: Denies: throat pain, ear or mastoid pain, nasal discharge or nasal congestion Card: Denies: chest pain, palpitations, lightheadedness, syncope or orthopnea Resp: Denies: hemoptysis or chest congestion GI: Denies: abdominal pain, nausea or vomiting : Denies: flank pain, dysuria, urinary frequency or urinary urgency Musc: Denies: extremity pain Skin/Breast: Denies: rash or pruritus Neuro: Denies: dizziness Endo: Denies: polyuria or polydipsia PFS ED PFSH: Medical History Abnormal stress test 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 Aspergillosis Atrial tachycardia COPD (chronic obstructive pulmonary disease) Coronary artery disease Cubital tunnel syndrome on right Diabetes Diabetes Emphysema of lung Erectile dysfunction Gross hematuria High risk medication use Joint pain Left lower quadrant pain P-ANCA titer positive Pneumocystis jiroveci pneumonia Pulmonary nodule Surgical absence of teeth SVT (supraventricular tachycardia) Tobacco abuse Urolithiasis Surgical History H/O neck surgery H/O: vasectomy History of ankle surgery History of dental surgery History of facial surgery History of lung biopsy S/P lobectomy of lung Family History Father , AT AGE 78 Cancer Hypertension Mother Diabetes Brother Diabetes Sister Diabetes Father Cancer Prostate Social History Quit status (tobacco): has quit using tobacco Year quit tobacco: 2019 - 2PPD x 40 Years Second hand smoke exposure: No Alcohol intake: never Marital status: Number of children: 3 Number of grandchildren: 4 Current occupational status: retired and disabled History of recent travel: No Dian/Gnosticism: Buddhism Physical Exam Const: COMMON NORMALS: no acute distress GENERAL APPEARANCE: cooperative and comfortable ORIENTATION/CONSCIOUSNESS: Yes awake, Yes oriented to person, Yes oriented to place and Yes oriented to time HENMT: COMMON NORMALS: normocephalic, atraumatic and hearing grossly normal bilaterally HEAD & SCALP: normocephalic and atraumatic Neck/C-Spine: COMMON NORMALS: no JVD Resp: EFFORT & INSPECTION: Yes tachypneic AUSCULTATION: rhonchi, wheezes and diminished lung sounds Cardio: COMMON NORMALS: no JVD, regular rate, regular rhythm and No murmurs present (Cardio) RATE: regular rate RHYTHM: regular rhythm GI: COMMON NORMALS: Soft to palpation and No hepatosplenomegaly present AUSCULTATION: Yes normoactive bowel sounds PALPATION: Yes Soft to palpation, No Tenderness to palpation present (GI), No Guarding due to palpation present (GI) and Yes No hepatosplenomegaly present Extremity: COMMON NORMALS: normal to inspection, capillary refill normal, no clubbing, cyanosis or edema, no calf tenderness and no pedal edema Neuro: SENSORIUM/ORIENTATION: Yes oriented to person, Yes oriented to place and Yes oriented to time Skin: COMMON NORMALS: no rashes or lesions noted GENERAL SKIN EXAM: no rashes or lesions noted Course Vital Signs: Vital signs: Vital Signs Temperature 100.6 F H 05/02/21 10:41 Pulse Rate 105 H 05/02/21 15:16 Respiratory Rate 27 H 05/02/21 11:08 Blood Pressure 112/77 05/02/21 10:41 Pulse Oximetry 94 05/02/21 15:16 MDM - SOB/Dyspnea MDM Narrative: Medical decision making narrative: Patient has severe interstitial fibrosis unfortunately now he has contracted COVID. Did cover him for secondary pneumonia as well discussed with the hospitalist and with his petrology teacher. Hospitalist is starting remdesivir. Lab Data: Labs: Lab Results 05/02/21 05/02/21 05/02/21 10:46 10:46 10:46 WBC 20.2 10^3/uL H 10 ^3/uL (4.0-10.0) RBC 5.10 10^6/uL 10^6 /uL (4.1-5.3) Hgb 13.1 g/dL g/dL (11.7-16.6) Hct 41.7 % L % (42.0-52.0) MCV 81.8 fl fl (80-94) MCH 25.7 pg L pg (28.0-34.0) MCHC 31.4 g/dL g/dL (30.0-36.0) RDW 15.9 % H % (12.1-15.1) Plt Count 227 10^3/cmm 10^3 /cmm (130-400) MPV 9.2 fL fL (7.4-10.4) Neut % (Auto) 84.8 % % Lymph % (Auto) 8.5 % % [place] % (Auto) 5.2 % % Eos % (Auto) 0.0 % % Baso % (Auto) 0.2 % % Neut # (Auto) 17.12 10^3/uL H 1 0^3/uL (1.8-7.7) Lymph # (Auto) 1.7 10^3/uL 10^3/ uL (0.8-4.8) [place] # (Auto) 1.1 10^3/uL H 10^ 3/uL (0.2-0.9) Eos # (Auto) 0.0 10^3/uL 10^3/ uL (0.0-0.8) Baso # (Auto) 0.1 10^3/uL 10^3/ uL (0.0-0.1) Nucleated RBC % (a uto) 0 % % Nucleated RBCs # 0.0 /100WBC /100W BC Specimen Type Sample Site ABG pH ABG pCO2 ABG pO2 ABG HCO3 ABG O2 Saturation ABG Base Excess [place]on Test A-a O2 Gradient Hematocrit Hgb O2 Saturation Carboxyhemoglobin Methemoglobin Total Hemoglobin Ionized Calcium O2 Delivery Device O2 Liters/Min Tanning Drum Operator ID Sodium 132 mmol/L L mmol /L (136-145) Potassium 5.0 mmol/L mmol/L (3.5-5.1) Chloride 94 mmol/L L mmol/ L (98-107) Carbon Dioxide 19 mmol/L L mmol/ L (22-29) Anion Gap 24.0 H (5-19) BUN 16 mg/dL mg/dL (8-23) Creatinine 0.9 mg/dL mg/dL (0.7-1.2) GFR Calculation 85.2 mL/min L mL/ min (90-130) Glucose 145 mg/dL H mg/dL (65-115) Calculated Osmolal ity 278 mOsm/kg L mOs m/kg (285-295) Lactic Acid 6.3 mmol/L H* mmo l/L (0.5-2.2) Lactic Acid (Sepsi s) Calcium 8.4 mg/dL L mg/dL (8.5-10.5) Total Bilirubin 0.3 mg/dL mg/dL (0.15-1.2) AST 22 U/L U/L (0-40) ALT 29 U/L U/L (0-41) Alkaline Phosphata se 87 IU/L IU/L (40-130) Total Protein 5.9 g/dL L g/dL (6.6-8.7) Albumin 3.7 g/dL g/dL (3.5-5.2) Globulin 2.2 g/dL g/dL (1.3-4.6) Coronavirus 229E ( PCR) SARS-CoV-2 (PCR) 05/02/21 05/02/21 05/02/21 10:48 12:55 13:34 WBC RBC Hgb Hct MCV MCH MCHC RDW Plt Count MPV Neut % (Auto) Lymph % (Auto) [place] % (Auto) Eos % (Auto) Baso % (Auto) Neut # (Auto) Lymph # (Auto) [place] # (Auto) Eos # (Auto) Baso # (Auto) Nucleated RBC % (a uto) Nucleated RBCs # Specimen Type Arterial Sample Site Radial, left ABG pH 7.48 H (7.35-7.45) ABG pCO2 31.3 mmHg L mmHg (35-45) ABG pO2 46.6 mmHg L mmHg (80.0-100.0) ABG HCO3 23.4 mmol/L mmol/ L (22-26) ABG O2 Saturation 84.9 ABG Base Excess 0.5 mmol/L mmol/L (-2.0-2.0) Eric[place]on Test Pos A-a O2 Gradient 8.3 mmHg mmHg (5-10) Hematocrit 39.0 % L % (42-52) Hgb O2 Saturation 83.9 % L % (95-100) Carboxyhemoglobin 0.6 %THgb %THgb (0.4-20.1) Methemoglobin 0.5 % % (0.4-1.5) Total Hemoglobin 12.7 g/dL L g/dL (14-18) Ionized Calcium 1.2 mmol/L mmol/L (1.1-1.4) O2 Delivery Device Nc O2 Liters/Min 10.0 % % Tanning Drum Operator ID Ed Sodium 134.0 mmol/L mmol /L (131-143) Potassium 4.0 mmol/L mmol/L (3.5-5.0) Chloride Carbon Dioxide Anion Gap BUN Creatinine GFR Calculation Glucose 161.0 mg/dL H mg/ dL (70-115) Calculated Osmolal ity Lactic Acid Lactic Acid (Sepsi s) 2.6 mmol/L H mmol /L (0.5-2.2) Calcium Total Bilirubin AST ALT Alkaline Phosphata se Total Protein Albumin Globulin Coronavirus 229E ( PCR) Not detected (NOT DETECT) SARS-CoV-2 (PCR) Detected A (NOT DETECT) Discharge Plan Discharge Patient Disposition: Admitted As Inpatient Admit Provider: Gonzalo Cobian Clinical Impression: COVID-19, Pulmonary interstitial fibrosis Condition: Stable Coding Level of Care Code ED [place] Measurer for Chg Fwd Exam Comprehensive
[2021-05-02 10:58] LABS: ABG PCO2 31.3 mmHg (35-45); ABG PH Result 7.48 (7.35-7.45); Alveolar-Arterial Oxygen Gradi 8.3 mmHg (5-10); Base Excess ABG 0.5 mmol/L (-2.0-2.0); Blood Gas Allen Test Pos; Blood Gas Sample Type Arterial; Carboxyhemoglobin 0.6 %THgb (0.4-20.1); HCO3 ABG 23.4 mmol/L (22-26); HGB O2 Sat 83.9 % (95-100); Ionized Calcium Level - ABG 1.2 mmol/L (1.1-1.4); Methemoglobin 0.5 % (0.4-1.5); Oxygen Saturation ABG 84.9; PO2 ABG 46.6 mmHg (80.0-100.0); Total Hemoglobin 12.7 g/dL (14-18)
[2021-05-02 10:59] LABS: Basophils # 0.1 10^3/uL (0.0-0.1); Basophils % 0.2 %; Hematocrit 41.7 % (42.0-52.0); Hemoglobin 13.1 g/dL (11.7-16.6); Lymphocytes # 1.7 10^3/uL (0.8-4.8); Lymphocytes % 8.5 %; Mean Corpuscular HGB Conc 31.4 g/dL (30.0-36.0); Mean Corpuscular Hemoglobin 25.7 pg (28.0-34.0); Mean Corpuscular Volume 81.8 fl (80-94); Mean Platelet Volume 9.2 fL (7.4-10.4); Monocytes # 1.1 10^3/uL (0.2-0.9); Monocytes % 5.2 %; Neutrophils # 17.12 10^3/uL (1.8-7.7); Neutrophils % 84.8 %; Nucleated Red Blood Cells % 0 %; Platelet Count 227 10^3/cmm (130-400); Red Cell Distribution Width 15.9 % (12.1-15.1); White Blood Count 20.2 10^3/uL (4.0-10.0)
[2021-05-02 11:00] LABS: Blood Gas Operator Identificat ED; Blood Gas Sample Site Radial, left; Oxygen Device NC
[2021-05-02] MEDS: ondansetron 2 mg/ML SDV 2 mL 4 MG IVP (11:02)
[2021-05-02] MEDS: ipratropium-albuterol 3 mL Neb 6 ML INHALATION (11:08)
[2021-05-02 11:22] LABS: Alanine Aminotransferase 29 U/L (0-41); Albumin Level 3.7 g/dL (3.5-5.2); Alkaline Phosphatase 87 IU/L (40-130); Aspartate Amino Transferase 22 U/L (0-40); Blood Urea Nitrogen 16 mg/dL (8-23); Calcium 8.4 mg/dL (8.5-10.5); Carbon Dioxide 19 mmol/L (22-29); Chloride 94 mmol/L (98-107); Globulin 2.2 g/dL (1.3-4.6); Glomerular Filtration Rate 85.2 mL/min (90-130); Glucose 145 mg/dL (65-115); Osmolality Calculated 278 mOsm/kg (285-295); Sodium 132 mmol/L (136-145); Total Bilirubin 0.3 mg/dL (0.15-1.2); Total Protein 5.9 g/dL (6.6-8.7)
[2021-05-02 11:27] LABS: Lactic Sepsis W/Reflex 6.3 mmol/L (0.5-2.2)
--- NOTE | 2021-05-02 11:28 | PC.NURSE ---
Critical lactic 6.[address] Nielsen.
--- NOTE | 2021-05-02 11:50 | PC.PHAR ---
pts daughter christian [phone] verified pts medications-rx filled 03/12/21 90d/s for eliquis 5mg bid pts daughter states it was changed to 2.5mg bid states she set this dose of 2.5mg bid in the pts med estate planner on 04/26/21-pts daughter stated the last time that the lasix and kcl was dced-pts daughter states the pt is on prednisone 40mg daily for 10 days then states the dr will adjust the dose-states the pt should finish the 40mg daily dose on friday05/04/21-notes are made in the pharmacy comments
[2021-05-02] MEDS: levofloxacin-dextrose 5 % 750 MG/150 ML PREMIX 100 MG IV (12:33)
--- NOTE | 2021-05-02 12:34 | ECG_ITS ---
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 Measurements Intervals [place] Rate: 124 P: -87 ND: 155 QRS: -11 QRSD: 94 T: 233 QT: 290 QTc: 417 Interpretive Statements Possible atrial flutter with a 2-1 block LEFT VENTRICULAR HYPERTROPHY AND ST-T CHANGE [VOLTAGE CRITERIA PLUS ST/T ABNORMALITY] POSSIBLE ANTERIOR MYOCARDIAL INFARCTION , OF INDETERMINATE AGE [30 ms Q WAVE IN V3/V4, OR R < 0.2 mV IN V4] Compared to ECG 04/18/2021 10:03:10 ST (T wave) deviation now present Myocardial infarct finding now present Sinus tachycardia no longer present Left-axis deviation no longer present T-wave abnormality no longer present Electronically Signed On 05-02-2021 17:48:56 BUMPER OPERATOR by Chelsea Parikh M.D. [email or web address]
[2021-05-02 12:45] LABS: Reflex Lactate Order REFLEX LACTIC ORDERD
[2021-05-02] MEDS: LORazepam 2 mg/mL INJ 1 mL 1 MG IVP (12:56)
[2021-05-02 14:09] LABS: Lactic Acid level (Lactate) 2.6 mmol/L (0.5-2.2)
--- NOTE | 2021-05-02 14:42 | PC.NURSE ---
daughter called for update.
[2021-05-02 14:48] LABS: Adenovirus Not Detected (NOT DETECT); Chlamydia Pneumoniae Not Detected (NOT DETECT); Coronavirus 229E,HKU1,NL63,OC4 Not Detected (NOT DETECT); Human Metapneumovirus Not Detected (NOT DETECT); Human Rhinovirus/Enterovirus Not Detected (NOT DETECT); Influenza A Not Detected (NOT DETECT); Influenza A H1 Not Detected (NOT DETECT); Influenza A H1-2009 Not Detected (NOT DETECT); Influenza A H3 Not Detected (NOT DETECT); Influenza B Not Detected (NOT DETECT); Mycoplasma Pneumoniae Not Detected (NOT DETECT); Parainfluenza Virus Type 1 Not Detected (NOT DETECT); Parainfluenza Virus Type 2 Not Detected (NOT DETECT); Parainfluenza Virus Type 3 Not Detected (NOT DETECT); Parainfluenza Virus Type 4 Not Detected (NOT DETECT); Respiratory Syncytial Virus A Not Detected (NOT DETECT); Respiratory Syncytial Virus B Not Detected (NOT DETECT); SARS-COV-2 Detected (NOT DETECT)
--- NOTE | 2021-05-02 14:56 | P.HP_ITS ---
Providers/Chief Complaint Admitting Physician: Gonzalo Cobian Primary Care Provider: Daniel Nogueira DO Chief Complaint: Hyperventalation History of Present Illness Pleasant 65-year-old gentleman with combination IPF and COPD, currently on 4 L of oxygen, with history of pneumocystis pneumonia, on chronic Bactrim, with recent hospitalization in the beginning of April due to hypoxia, exacerbation of IPF, treated with IV steroids, completed short antibiotic course with azithro mycin has been on prednisone taper, currently at at 40 mg a day has been short of breath over the past 3 weeks or so, but last few days also has been spiking fevers, on presentation in ER with temp 100.6, WBC count 20.2. ABG 7.48/31.3/46.6/23.4. Lactic acidosis, lactic acid 6.3, follow-up 2.6. Chest x- ray with infiltrates in bilateral mid and lower lung zones with honeycombing most likely chronic in nature. He reports productive cough, with more sputum in the morning. Would want attempted cardiopulmonary resuscitation. Names son Luis Alberto as surrogate decision maker in case he could not make his own decisions. Review of Systems Const: Reports: fever(s); Denies: chills, body aches or malaise Eyes: Denies: change in vision or eye redness ENMT: Denies: throat pain, oral sores or ear or mastoid pain Card: Reports: dyspnea on exertion; Denies: chest pain, edema or pre-syncope Resp: Reports: dyspnea and productive cough; Denies: hemoptysis GI: Denies: abdominal pain, nausea, vomiting, diarrhea, constipation, hematochezia or melena : Denies: flank pain, difficulty urinating, urinary frequency or hematuria Musc: Denies: back pain, joint swelling or joint redness Skin/Breast: Denies: rash, sores or new lesions Neuro: Reports: headache(s); Denies: numbness in extremities, weakness in extremities, dizziness, confusion or seizure-like activity Endo: Denies: polyuria or polydipsia Jamari/Lymph: Denies: easy bleeding or purpura All/Imm: Denies: urticaria, throat swelling or tongue swelling Medications/Allergies Home Medications Medication Instructions Recorded Confirmed Last Taken Type escitalopram oxalate 10 mg tablet 20 mg PO DAILY tab 12/05/0305/02/21 01/20/21 History Breztri Aerosphere 2 inh INHALATION BID 09/12/20 05/02/21 01/20/21 History albuterol sulfate [ProAir HFA] 2 puff INHALATION Q4H PRN 09/12/20 05/02/21 Unknown History fluticasone propionate 2 spray INTRANASAL DAILY 09/12/20 05/02/21 Unknown History nitroglycerin 0.4 mg sublingual 0.4 mg SUBLINGUAL Q5M PRN #25 tab 09/12/20 05/02/21 Unknown Rx tablet lorazepam [Ativan] 1 mg PO TID PRN 09/13/20 05/02/21 Unknown History acetaminophen 325 mg tablet 650 mg PO Q6H PRN #240 tab 09/28/20 05/02/21 Unknown Rx [id number] Ventilator 10/02/20 05/02/21 Unknown History oxygen-air delivery systems 10/02/20 05/02/21 Unknown History atorvastatin 20 mg tablet 20 mg PO DAILY 90 Days #90 tab 10/18/20 05/02/21 01/20/21 Rx benzonatate 100 mg capsule 100 mg PO TID PRN 90 Days #270 cap 11/10/20 05/02/21 Unknown Rx clopidogrel 75 mg tablet 75 mg PO DAILY 90 Days #90 tab 11/15/20 05/02/21 01/20/21 Rx sulfamethoxazole 800 1 tab PO .COMPLEX 90 Days #45 tab 11/15/20 05/02/21 Unknown Rx mg-trimethoprim 160 mg tablet cyclobenzaprine 10 mg tablet 10 mg PO BEDTIME PRN tab 12/08/20 05/02/21 01/20/21 History ondansetron 4 mg PO Q8H PRN #7 tab 12/30/20 05/02/21 Unknown Rx loratadine 10 mg PO DAILY 01/21/21 05/02/21 01/20/21 History melatonin 10 mg PO BEDTIME 01/21/21 05/02/21 01/19/21 History diltiazem HCl 240 mg 240 mg PO DAILY #90 cap 03/12/21 05/02/21 Unknown Rx capsule,extended release 24 hr Vitamin C 1 tab PO DAILY 04/18/21 05/02/21 Unknown History Vitamin D3 Gummies 1 tab PO DAILY 04/18/21 05/02/21 Unknown History albuterol sulfate 2.5 mg INHALATION QID PRN 04/18/21 05/02/21 Unknown History sildenafil 25 mg PO PRN PRN 04/18/21 05/02/21 Unknown History prednisone 10 mg tablet See Rx Instructions .ROUTE .COMPLEX 04/23/21 05/02/21 Unknown History pirfenidone 801 mg tablet 801 mg PO TID #90 tab 04/27/21 05/02/21 Unknown Rx Eliquis 2.5 mg PO BID 05/02/21 05/02/21 Unknown History Allergies Allergy/AdvReac Type Severity Reaction Status Date / Time insect venom Allergy ALGY-Difficulty Verified 05/02/21 10:40 Swallowing PFSH Acute PFSH: Medical History Abnormal stress test 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 Aspergillosis Atrial tachycardia COPD (chronic obstructive pulmonary disease) Coronary artery disease Cubital tunnel syndrome on right Diabetes Diabetes Emphysema of lung Erectile dysfunction Gross hematuria High risk medication use Joint pain Left lower quadrant pain P-ANCA titer positive Pneumocystis jiroveci pneumonia Pulmonary nodule Surgical absence of teeth SVT (supraventricular tachycardia) Tobacco abuse Urolithiasis Surgical History H/O neck surgery H/O: vasectomy History of ankle surgery History of dental surgery History of facial surgery History of lung biopsy S/P lobectomy of lung Family History Father , AT AGE 78 Cancer Hypertension Mother Diabetes Brother Diabetes Sister Diabetes Father Cancer Prostate Social History Quit status (tobacco): has quit using tobacco Year quit tobacco: 2020 - 2PPD x 40 Years Second hand smoke exposure: No Alcohol intake: never Marital status: Number of children: 3 Number of grandchildren: 4 Current occupational status: retired and disabled History of recent travel: No Dian/Baptist: Mu-Ism Vitals/I&O/Wt Last Vital Signs Temp 100.6 F H 05/02/21 10:41 Pulse 108 H 01/19/22 14:36 Resp 27 H 05/02/21 11:08 BP 112/77 05/02/21 10:41 Pulse Ox 98 05/02/21 14:36 Weight last 48 hrs Weight 77.111 kg Physical Exam Const: COMMON NORMALS: no acute distress and patient oriented x3 HENMT: COMMON NORMALS: oropharynx normal Neck/C-Spine: COMMON NORMALS: no JVD Resp: COMMON NORMALS: normal respiratory effort AUSCULTATION: crackles Cardio: COMMON NORMALS: no JVD, regular rhythm, S1 normal heart sound present, S2 normal heart sound present and No murmurs present (Cardio) RHYTHM: regular rhythm HEART SOUNDS: S1 normal heart sound present and S2 normal heart sound present GI: COMMON NORMALS: Normal to inspection, nondistended, normoactive bowel sounds present, Soft to palpation and non-tender PALPATION: Yes Soft to palpation Extremity: COMMON NORMALS: no joint enlargement and no pedal edema Neuro: COMMON NORMALS: patient oriented x3 and moves all extremities Skin: COMMON NORMALS: no rashes or lesions noted GENERAL SKIN EXAM: no rashes or lesions noted Data : 05/02/21 10:46 05/02/21 10:46 Micro: Microbiology 05/02/21 12:38 Blood Culture - Preliminary Blood SPECIMEN COLLECTED 05/02/21 12:36 Blood Culture - Preliminary Blood SPECIMEN COLLECTED A&P Assessment and plan (1) Acute and chronic respiratory failure: Possible sepsis, with leukocytosis 20.2, low-grade fever 100.6, tachycardia, although does have ectopic atrial rhythm. Dyspnea, hypoxia, started on BiPAP support in ER. Blood cultures collected. Received Levaquin. Productive cough. Chest x-ray with infiltrates in bilateral mid and lower lung zones appearing chronic. Will additionally assess with CT of the chest. Broad spectrum antibiotic coverage at this time. Requesting sputum culture, bacterial antigens. MRSA PCR. Continue current dose prednisone which she is taking 20 mg twice daily. COVID-19 PCR pending. Has been vaccinated. Status: Acute (2) Tachycardia: Likely triggered by hypoxia. Ectopic rhythm on EKG. Initially heart rates 140s. Currently better with oxygen support, down to 105. Continue diltiazem. Monitor on telemetry. Status: Acute Additional A&P Information IPF: Chronically on 4 L of oxygen. In the process/awaiting callback from [place] regarding transplant wait list. Continue pirfenidone if family can bring. History of pneumocystis pneumonia: Currently on Bactrim, continue History of A. fib CAD Steroid-induced diabetes Compression fractures Other chronic medical problems noted Attestations Medical Necessity Statement*: Admission of over 2 midnights is going to needed versus management of acute on chronic hypoxic respiratory failure, possible sepsis, suspected pneumonia, and a gentleman with underlying combination pulmonary fibrosis and COPD Coding Level of Care Code Acute Angle Furnaceman for [facility] Bety Diagnoses Acute and chronic respiratory failure J96.20 Tachycardia R00.0
[2021-05-02] MEDS: remdesivir 200 MG in sodium chloride 0.9% (100 ml) 60 ML 100 MG IV (17:23)
[2021-05-02] MEDS: dexamethasone 10 mg/mL INJ 6 MG IVP (17:23)
--- NOTE | 2021-05-02 18:59 | CTR_ITS ---
PROCEDURE INFORMATION: Exam: CT Chest Without Contrast; Diagnostic Exam date and time: 05/02/2021 6:59 PM Age: 65 years old Clinical indication: Shortness of breath; Prior surgery; Surgery type: RT lobe, stents, neck; Additional info: Sepsis, resp distress, IPF, poss pna TECHNIQUE: Imaging protocol: Diagnostic computed tomography of the chest without contrast. Total images: 262 Radiation optimization: All CT scans at this facility use at least one of these dose optimization techniques: automated exposure control; mA and/or kV adjustment per patient size (includes targeted exams where dose is matched to clinical indication); or iterative reconstruction. COMPARISON: 1. CT angio chest PE protcl [id number] 04/18/2021 1:[address] angio chest PE protcl [id number] 09/12/2020 7:08 PM RADIATION DOSE METRICS: Total DLP (mGy-cm): 666.01 FINDINGS: Lungs: Status post right upper lobectomy. 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 Peripheral acinar emphysema. No appreciable significant overall change since 04/18/2021. Pleural spaces: No pneumothorax. No pleural effusion. Heart: Cardiac size within normal limits. No visible pericardial effusion. Coronary artery disease primarily of the left anterior descending branch. Aorta: The thoracic aorta is nonaneurysmal. Mild arteriosclerosis. Lymph nodes: No definitive evidence of active mediastinal or hilar lymphadenopathy. Calcified complexes of antecedent granulomatous disease. Diaphragm: Small hiatal hernia. Bones/joints: No visible acute osseous abnormality. Antecedent compression wedge deformities T6, T7, T8, T9, and T10. Previous cervical fusion. Mild scoliotic curvature of the spine. Soft tissues: Unremarkable. Other findings: Respiratory motion artifact. CT/CT chest [facility] [id number] IMPRESSION: 1. Status post right upper lobectomy. 2. 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 3. Peripheral acinar emphysema. 4. No appreciable significant overall change since 04/18/2021. 5. Coronary artery disease.
--- NOTE | 2021-05-02 19:58 | PC.PHAR ---
Vancomycin is dosed at 1250mg IVPB every 12 hours to produce a predicted trough level of 14.86 (population based pharmacokinetic analysis). A trough level has been ordered from the lab to confirm and adjust if needed.
[2021-05-02] MEDS: apixaban 5 mg Tablet 2.5 MG PO (21:22)
[2021-05-02] MEDS: acetaminophen 325 mg Tablet 650 MG PO (21:24)
[2021-05-02] MEDS: vancomycin 1,250 MG/250 ML PIGGYBACK 250 MG IV (21:25)
[2021-05-02 21:40] LABS: Glucose Point of Care 285 mg/dL (70-110)
[2021-05-02] MEDS: insulin lispro 100 unit/1 mL SUBCUT (22:49)
[2021-05-02] MEDS: cyclobenzaprine 10 mg Tablet PO (22:49)
[2021-05-02] MEDS: LORazepam 1 mg Tablet PO (22:49)
[2021-05-02] MEDS: piperacillin-tazobactam 3.375 GM in sodium chloride 0.9% (plus) 50 ML IV (22:52)
[2021-05-03] VITALS (13 sets, daily range): BP systolic 102–145; BP diastolic 69–90; PULSE 81–116; RESP 15–24; TEMP 36.4; O2SAT 91–97; BMI 24.3
[2021-05-03 03:56] LABS: Basophils % 0.1 %; Hematocrit 34.1 % (42.0-52.0); Hemoglobin 11.2 g/dL (11.7-16.6); Lymphocytes # 1.1 10^3/uL (0.8-4.8); Lymphocytes % 11.9 %; Mean Corpuscular HGB Conc 32.8 g/dL (30.0-36.0); Mean Corpuscular Hemoglobin 26.2 pg (28.0-34.0); Mean Corpuscular Volume 79.9 fl (80-94); Mean Platelet Volume 8.8 fL (7.4-10.4); Monocytes # 0.3 10^3/uL (0.2-0.9); Monocytes % 3.1 %; Neutrophils % 84.2 %; Nucleated Red Blood Cells % 0 %; Platelet Count 183 10^3/cmm (130-400); Red Blood Count 4.27 10^6/uL (4.1-5.3); Red Cell Distribution Width 15.8 % (12.1-15.1)
[2021-05-03 04:11] LABS: D Dimer 0.32 ug/mIFEU (0-0.59)
[2021-05-03 04:14] LABS: Anion Gap 15.7 (5-19); Blood Urea Nitrogen 17 mg/dL (8-23); C Reactive Protein 103.9 mg/L (0.0-4.9); Calcium 8.3 mg/dL (8.5-10.5); Carbon Dioxide 22 mmol/L (22-29); Chloride 101 mmol/L (98-107); Glomerular Filtration Rate 136.1 mL/min (90-130); Glucose 98 mg/dL (65-115); Osmolality Calculated 280 mOsm/kg (285-295); Potassium 4.7 mmol/L (3.5-5.1); Sodium 134 mmol/L (136-145)
[2021-05-03 06:15] LABS: Glucose Point of Care 135 mg/dL (70-110)
[2021-05-03] MEDS: piperacillin-tazobactam 3.375 GM in sodium chloride 0.9% (plus) 50 ML IV ×2 (09:21→18:37)
[2021-05-03] MEDS: clopidogrel 75 mg Tablet PO (09:24)
[2021-05-03] MEDS: apixaban 5 mg Tablet 2.5 MG PO ×2 (09:24→17:26)
[2021-05-03] MEDS: dilTIAZem ER (24HR) 240 mg Capsule PO (09:25)
[2021-05-03] MEDS: atorvastatin 40 mg Tablet 20 MG PO (09:25)
[2021-05-03 09:40] LABS: Glucose Point of Care 234 mg/dL (70-110)
[2021-05-03] MEDS: insulin lispro 100 unit/1 mL SUBCUT ×2 (10:32→22:13)
[2021-05-03] MEDS: vancomycin 1,250 MG/250 ML PIGGYBACK 250 MG IV ×2 (10:33→20:28)
[2021-05-03] MEDS: loratadine 10 mg Tablet PO (11:11)
[2021-05-03] MEDS: escitalopram 10 mg Tablet 20 MG PO (11:11)
[2021-05-03] MEDS: fluticasone nasal spray 16gm Btl 2 SPRAY INTRANASAL (11:11)
[2021-05-03] MEDS: levofloxacin-dextrose 5 % 750 MG/150 ML PREMIX 100 MG IV (12:34)
[2021-05-03 12:47] LABS: Glucose Point of Care 105 mg/dL (70-110)
[2021-05-03] MEDS: dexamethasone 10 mg/mL INJ 6 MG IVP (16:01)
[2021-05-03] MEDS: remdesivir 100 MG in sodium chloride 0.9% (100 ml) 100 ML IV (17:26)
--- NOTE | 2021-05-03 18:50 | PC.NURSE ---
Report to Teresa ZELAYA at this time.
--- NOTE | 2021-05-03 20:35 | PM.PN ---
Subjective Subjective: Interval history: He reports he is feeling better today, in fact transiently was able to come down to 6 L oxygen by nasal cannula. Denies chest pain or pressure. Cough is better, no phlegm production today. Denies headache, no nausea vomiting or diarrhea. Vitals/I&O/Wt Last Vital Signs Temp 97.5 F L 05/03/21 16:00 Pulse 94 05/03/21 16:00 Resp 18 05/03/21 16:00 BP 107/78 05/03/21 16:00 Pulse Ox 91 05/03/21 16:00 05/03/21 05/03/21 05/03/21 06:59 14:59 22:59 Intake Total 50 / 300 300 / 300 450 / 750 Balance 50 / 300 300 / 300 450 / 750 Weight last 48 hrs Weight 77.111 kg Weight 77.111 kg Physical Exam Const: COMMON NORMALS: no acute distress and patient oriented x3 HENMT: COMMON NORMALS: oropharynx normal Neck/C-Spine: COMMON NORMALS: no JVD Resp: COMMON NORMALS: normal respiratory effort AUSCULTATION: crackles Cardio: COMMON NORMALS: no JVD, regular rhythm, S1 normal heart sound present, S2 normal heart sound present and No murmurs present (Cardio) RHYTHM: regular rhythm HEART SOUNDS: S1 normal heart sound present and S2 normal heart sound present GI: COMMON NORMALS: Normal to inspection, nondistended, normoactive bowel sounds present, Soft to palpation and non-tender PALPATION: Yes Soft to palpation Extremity: COMMON NORMALS: no joint enlargement and no pedal edema Neuro: COMMON NORMALS: patient oriented x3 and moves all extremities Skin: COMMON NORMALS: no rashes or lesions noted GENERAL SKIN EXAM: no rashes or lesions noted Data : 05/03/21 03:41 05/03/21 03:41 Micro: Microbiology 05/02/21 12:38 Blood Culture - Preliminary Blood NEGATIVE TO DATE 05/02/21 12:36 Blood Culture - Preliminary Blood NEGATIVE TO DATE A&P Assessment and plan (1) Acute and chronic respiratory failure: He is showing improvement, tolerating high flow nasal cannula well. Still requiring 8 L oxygen currently. Pending microbiologic studies. Discussed with her current treatment regimen. For severe COVID-19 continue Decadron, remdesivir, continue for now with empiric antibiotics with Levaquin, Zosyn, vancomycin Possible sepsis, appears to be resolving, leukocytosis resolved. So far no longer febrile. Tachycardia with improvement. Weaned off BiPAP. CT of the chest with interstitial pneumonitis. Otherwise chronic findings. Status: Acute (2) Tachycardia: Likely triggered by hypoxia. Ectopic rhythm on EKG. Initially heart rates 140s. Currently better with oxygen support, down to 105. Continue diltiazem. Monitor on telemetry. Status: Acute (3) COVID-19: Status: Acute Additional A&P Information IPF: Chronically on 4 L of oxygen. In the process/awaiting callback from [place] regarding transplant wait list. Continue pirfenidone if family can bring. History of pneumocystis pneumonia: Currently on Bactrim, continue History of A. fib CAD Steroid-induced diabetes Compression fractures Other chronic medical problems noted Attestations Medical Necessity Statement*: Continue admission for management of acute on chronic respiratory failure, severe COVID-19 in the gentleman with underlying combined IPF and COPD, chronic hypoxia. Coding Level of Care Code Acute Count Room Clerk for [facility] Diagnoses Acute and chronic respiratory failure J96.20 Tachycardia R00.0 COVID-19 U07.1
[2021-05-03] MEDS: cyclobenzaprine 10 mg Tablet PO (21:36)
[2021-05-03] MEDS: LORazepam 1 mg Tablet PO (21:36)
[2021-05-03 22:00] LABS: Glucose Point of Care 140 mg/dL (70-110)
[2021-05-04] VITALS (9 sets, daily range): BP systolic 97–113; BP diastolic 49–74; PULSE 75–90; RESP 18–22; TEMP 36.3–36.5; O2SAT 90–98
[2021-05-04] MEDS: piperacillin-tazobactam 3.375 GM in sodium chloride 0.9% (plus) 50 ML IV ×3 (01:24→20:28)
[2021-05-04 06:48] LABS: Glucose Point of Care 127 mg/dL (70-110)
[2021-05-04 07:03] LABS: Basophils % 0.1 %; Hematocrit 33.6 % (42.0-52.0); Hemoglobin 10.7 g/dL (11.7-16.6); Lymphocytes # 1.2 10^3/uL (0.8-4.8); Lymphocytes % 6.8 %; Mean Corpuscular HGB Conc 31.8 g/dL (30.0-36.0); Mean Corpuscular Hemoglobin 25.9 pg (28.0-34.0); Mean Corpuscular Volume 81.4 fl (80-94); Monocytes # 0.9 10^3/uL (0.2-0.9); Monocytes % 5.1 %; Neutrophils # 15.97 10^3/uL (1.8-7.7); Neutrophils % 86.9 %; Nucleated Red Blood Cells % 0 %; Platelet Count 197 10^3/cmm (130-400); Red Blood Count 4.13 10^6/uL (4.1-5.3); Red Cell Distribution Width 15.9 % (12.1-15.1); White Blood Count 18.4 10^3/uL (4.0-10.0)
[2021-05-04 07:10] LABS: Vancomycin Trough 11.4 ug/mL (10-15)
[2021-05-04 07:12] LABS: D Dimer 0.41 ug/mIFEU (0-0.59)
[2021-05-04 07:23] LABS: Alanine Aminotransferase 26 U/L (0-41); Albumin Level 2.8 g/dL (3.5-5.2); Alkaline Phosphatase 63 IU/L (40-130); Anion Gap 16.5 (5-19); Aspartate Amino Transferase 19 U/L (0-40); Blood Urea Nitrogen 20 mg/dL (8-23); C Reactive Protein 54.4 mg/L (0.0-4.9); Calcium 8.1 mg/dL (8.5-10.5); Carbon Dioxide 20 mmol/L (22-29); Chloride 99 mmol/L (98-107); Globulin 2.6 g/dL (1.3-4.6); Glomerular Filtration Rate 136.1 mL/min (90-130); Glucose 119 mg/dL (65-115); Osmolality Calculated 276 mOsm/kg (285-295); Potassium 4.5 mmol/L (3.5-5.1); Sodium 131 mmol/L (136-145); Total Bilirubin 0.2 mg/dL (0.15-1.2); Total Protein 5.4 g/dL (6.6-8.7)
[2021-05-04] MEDS: vancomycin 1,250 MG/250 ML PIGGYBACK 250 MG IV ×2 (08:48→19:10)
[2021-05-04] MEDS: dilTIAZem ER (24HR) 240 mg Capsule PO (08:51)
[2021-05-04] MEDS: apixaban 5 mg Tablet 2.5 MG PO ×2 (08:51→18:06)
[2021-05-04] MEDS: clopidogrel 75 mg Tablet PO (08:51)
[2021-05-04] MEDS: escitalopram 10 mg Tablet 20 MG PO (08:57)
[2021-05-04] MEDS: loratadine 10 mg Tablet PO (08:58)
[2021-05-04] MEDS: atorvastatin 40 mg Tablet 20 MG PO (08:58)
[2021-05-04] MEDS: fluticasone nasal spray 16gm Btl 2 SPRAY INTRANASAL (11:22)
[2021-05-04 11:43] LABS: Glucose Point of Care 148 mg/dL (70-110)
[2021-05-04] MEDS: sulfamethoxazole-trimeth DS 160-800 mg Tablet 1 TAB PO (13:50)
[2021-05-04] MEDS: insulin lispro 100 unit/1 mL SUBCUT ×2 (13:50→21:52)
--- NOTE | 2021-05-04 14:37 | PC.CHAP ---
Pastoral Care Encounter/Spiritual Assessment Type of Contact [] Declined long term care administrator visit [] Patient/Family/Request visit [] Outpatient visit [] Follow-up visit [] Physician referral [] Code/Alert [] Routine visit [] Staff referral [] Actively dying [] Patient sleeping [] Family support [] [] Out of room [] Palliative care [] [] Receiving care in room [] Pre-surgical visit [] Trauma [] Long length of stay [] ICU visit [xx] Other: Covid-19 restrictions Relational/Emotional Strength [] Patient feels connected with others/family/visitors/staff [] Distress [] Loneliness/isolation [] Abandonment Spirituality of Patient [] Person of Dian [] Attends Rastafari of their Dian [] Believes in Prayer [] Reads Bible or Yazidi materials [] There are Spiritual issues to be addressed [employer] Site Leasing Consultant Interventions [] Prayer [] Active listening [] Non-anxious presence [] Spiritual/emotional support [] Crisis/trauma care [] Spiritual counseling [] Bereavement support [] Provided bereavement packet [] Provided Bible/devotional materials [] Provided toy/stuffed animal, coloring book to patient or family member [] Provided Communion [] Anointing/[place] [] Salvation [] Completed spiritual assessment [] Other: Impact on Illness or Injury [] Angry [] Fearful [] Anxious [] Often cries [] Exhaustion [] Unable to work [] Unable to attend adventism [] Unable to walk/stand [] Unable to read [] Unable to drive [] Unable to eat/drink [] Unable to sleep [] Unable to be with family [] Patient intubated [] Other: Summary Time spent with patient
[2021-05-04] MEDS: levofloxacin-dextrose 5 % 750 MG/150 ML PREMIX 100 MG IV (16:31)
[2021-05-04 16:55] LABS: Glucose Point of Care 133 mg/dL (70-110)
[2021-05-04] MEDS: remdesivir 100 MG in sodium chloride 0.9% (100 ml) 100 ML IV (18:06)
[2021-05-04] MEDS: dexamethasone 10 mg/mL INJ 6 MG IVP (18:45)
[2021-05-04] MEDS: LORazepam 1 mg Tablet PO (20:30)
[2021-05-04] MEDS: cyclobenzaprine 10 mg Tablet PO (20:30)
--- NOTE | 2021-05-04 20:54 | P.PN_ITS ---
Subjective Subjective: Interval history: He subjectively feels better. Less short of breath. Oxygen requirement, however, has not improved so far. Still productive cough. Reports he gave a sample in ER, but I still see uncollected, discussed with him we will request again. Vitals/I&O/Wt Last Vital Signs Temp 97.5 F L 05/04/21 20:00 Pulse 85 05/04/21 20:00 Resp 22 H 05/04/21 20:00 BP 111/74 05/04/21 20:00 Pulse Ox 96 05/04/21 20:00 05/04/21 05/04/21 05/04/21 06:59 14:59 22:59 Intake Total 50 / 1580 240 / 240 1050 / 1290 Output Total 350 / 1100 800 / 800 Balance -300 / 480 -560 / -560 1050 / 490 Weight last 48 hrs Weight 77.111 kg Physical Exam Const: COMMON NORMALS: no acute distress and patient oriented x3 HENMT: COMMON NORMALS: oropharynx normal Neck/C-Spine: COMMON NORMALS: no JVD Resp: COMMON NORMALS: normal respiratory effort AUSCULTATION: crackles (fine) Cardio: COMMON NORMALS: no JVD, regular rhythm, S1 normal heart sound present, S2 normal heart sound present and No murmurs present (Cardio) RHYTHM: regular rhythm HEART SOUNDS: S1 normal heart sound present and S2 normal heart sound present GI: COMMON NORMALS: Normal to inspection, nondistended, normoactive bowel sounds present, Soft to palpation and non-tender PALPATION: Yes Soft to palpation Extremity: COMMON NORMALS: no joint enlargement and no pedal edema Neuro: COMMON NORMALS: patient oriented x3 and moves all extremities Skin: COMMON NORMALS: no rashes or lesions noted GENERAL SKIN EXAM: no rashes or lesions noted Data : 05/04/21 06:39 05/04/21 06:39 Micro: Microbiology 05/04/21 05:30 MRSA Culture - Final Nose 05/03/21 19:25 Legionella Urinary Antigen - Final Urine,Voided 05/03/21 19:25 Bacterial Antigens - Final Urine,Voided A&P Assessment and plan (1) Acute and chronic respiratory failure: He is subjectively feeling better, but otherwise oxygenation improved, and worse this evening at 10 L nasal cannula requirement. States he provided sputum sample in the ER, but no sputum culture noted pending. We will request again as it appears likely to simple was misplaced. Continue oxygen support, wean down as tolerating. Continue empiric antibiotic coverage. For severe COVID-19 continue Decadron, remdesivir, repeat CRP. Continue for now with empiric antibiotics with Levaquin, Zosyn, vancomycin Possible sepsis, leukocytosis persists. Fever so far without recurrence. Tachycardia with improvement. Weaned off BiPAP. CT of the chest with interstitial pneumonitis. Otherwise chronic findings. Status: Acute (2) Tachycardia: Resolved. Likely triggered by hypoxia. Ectopic rhythm on EKG. Continue diltiazem. Monitor on telemetry. Status: Acute (3) COVID-19: Severe COVID-19, as above. Status: Acute Additional A&P Information IPF: Chronically on 4 L of oxygen. In the process/awaiting callback from [place] regarding transplant wait list. Continue pirfenidone if family can bring. History of pneumocystis pneumonia: Currently on Bactrim, continue History of A. fib CAD Steroid-induced diabetes Compression fractures Other chronic medical problems noted Attestations Medical Necessity Statement*: Continue admission for assessment management of acute on chronic hypoxic respiratory failure in the gentleman with underlying combined IPF and COPD, with severe COVID-19 Coding Level of Care Code Acute Agricultural Education Teacher for [facility] Diagnoses Acute and chronic respiratory failure J96.20 Tachycardia R00.0 COVID-19 U07.1
[2021-05-04 21:15] LABS: Glucose Point of Care 159 mg/dL (70-110)
[2021-05-05] VITALS (11 sets, daily range): BP systolic 98–117; BP diastolic 59–77; PULSE 83–102; RESP 16–22; TEMP 36.4–36.9; O2SAT 88–99
[2021-05-05] MEDS: piperacillin-tazobactam 3.375 GM in sodium chloride 0.9% (plus) 50 ML IV ×3 (03:10→20:58)
[2021-05-05 06:26] LABS: Basophils % 0.1 %; Hematocrit 34.8 % (42.0-52.0); Hemoglobin 11.4 g/dL (11.7-16.6); Lymphocytes # 1.1 10^3/uL (0.8-4.8); Lymphocytes % 8.8 %; Mean Corpuscular HGB Conc 32.8 g/dL (30.0-36.0); Mean Corpuscular Volume 79.5 fl (80-94); Mean Platelet Volume 9.2 fL (7.4-10.4); Monocytes # 0.4 10^3/uL (0.2-0.9); Neutrophils # 10.84 10^3/uL (1.8-7.7); Neutrophils % 87.2 %; Nucleated Red Blood Cells % 0 %; Platelet Count 197 10^3/cmm (130-400); Red Blood Count 4.38 10^6/uL (4.1-5.3); Red Cell Distribution Width 15.9 % (12.1-15.1); White Blood Count 12.4 10^3/uL (4.0-10.0)
[2021-05-05 06:32] LABS: Glucose Point of Care 140 mg/dL (70-110)
[2021-05-05 06:36] LABS: D Dimer 0.36 ug/mIFEU (0-0.59)
[2021-05-05 06:44] LABS: C Reactive Protein 34.9 mg/L (0.0-4.9)
[2021-05-05 06:45] LABS: Alanine Aminotransferase 26 U/L (0-41); Albumin Level 3.1 g/dL (3.5-5.2); Alkaline Phosphatase 70 IU/L (40-130); Anion Gap 15.4 (5-19); Aspartate Amino Transferase 15 U/L (0-40); Blood Urea Nitrogen 20 mg/dL (8-23); Calcium 8.2 mg/dL (8.5-10.5); Carbon Dioxide 24 mmol/L (22-29); Chloride 97 mmol/L (98-107); Globulin 2.4 g/dL (1.3-4.6); Glomerular Filtration Rate 113.9 mL/min (90-130); Glucose 136 mg/dL (65-115); Osmolality Calculated 279 mOsm/kg (285-295); Potassium 4.4 mmol/L (3.5-5.1); Sodium 132 mmol/L (136-145); Total Bilirubin 0.2 mg/dL (0.15-1.2); Total Protein 5.5 g/dL (6.6-8.7)
--- NOTE | 2021-05-05 07:00 | PC.NURSE ---
Report received from Teresa ZELAYA
[2021-05-05] MEDS: loratadine 10 mg Tablet PO (08:34)
[2021-05-05] MEDS: escitalopram 10 mg Tablet 20 MG PO (08:34)
[2021-05-05] MEDS: dilTIAZem ER (24HR) 240 mg Capsule PO (08:34)
[2021-05-05] MEDS: benzonatate 100 mg Capsule PO (08:34)
[2021-05-05] MEDS: atorvastatin 40 mg Tablet 20 MG PO (08:34)
[2021-05-05] MEDS: apixaban 5 mg Tablet 2.5 MG PO ×2 (08:34→17:41)
[2021-05-05] MEDS: clopidogrel 75 mg Tablet PO (08:35)
[2021-05-05] MEDS: fluticasone nasal spray 16gm Btl 2 SPRAY INTRANASAL (08:35)
[2021-05-05] MEDS: vancomycin 1,250 MG/250 ML PIGGYBACK 250 MG IV ×2 (08:35→19:46)
[2021-05-05 11:35] LABS: Glucose Point of Care 198 mg/dL (70-110)
[2021-05-05] MEDS: insulin lispro 100 unit/1 mL SUBCUT ×2 (12:30→21:08)
[2021-05-05] MEDS: levofloxacin-dextrose 5 % 750 MG/150 ML PREMIX 100 MG IV (14:42)
[2021-05-05 17:27] LABS: Glucose Point of Care 137 mg/dL (70-110)
[2021-05-05] MEDS: dexamethasone 10 mg/mL INJ 6 MG IVP (17:41)
[2021-05-05] MEDS: remdesivir 100 MG in sodium chloride 0.9% (100 ml) 100 ML IV (17:42)
[2021-05-05 20:58] LABS: Glucose Point of Care 212 mg/dL (70-110)
[2021-05-05] MEDS: cyclobenzaprine 10 mg Tablet PO (21:05)
[2021-05-05] MEDS: LORazepam 1 mg Tablet PO (21:06)
--- NOTE | 2021-05-05 21:14 | PM.PN ---
Subjective Subjective: Interval history: States he is overall feeling somewhat better. Still productive cough. Denies headache, nausea vomiting or diarrhea. Vitals/I&O/Wt Last Vital Signs Temp 97.6 F 05/05/21 20:00 Pulse 83 05/05/21 20:06 Resp 18 05/05/21 20:06 BP 117/77 05/05/21 20:00 Pulse Ox 88 L 05/05/21 20:06 05/05/21 05/05/21 05/05/21 06:59 14:59 22:59 Intake Total 670 / 2080 550 / 550 770 / 1320 Output Total 1250 / 2550 400 / 400 250 / 650 Balance -580 / -470 150 / 150 520 / 670 Weight last 48 hrs Weight 75.251 kg Physical Exam Const: COMMON NORMALS: no acute distress and patient oriented x3 HENMT: COMMON NORMALS: oropharynx normal Neck/C-Spine: COMMON NORMALS: no JVD Resp: COMMON NORMALS: normal respiratory effort AUSCULTATION: crackles (fine) and rhonchi Cardio: COMMON NORMALS: no JVD, regular rhythm, S1 normal heart sound present, S2 normal heart sound present and No murmurs present (Cardio) RHYTHM: regular rhythm HEART SOUNDS: S1 normal heart sound present and S2 normal heart sound present GI: COMMON NORMALS: Normal to inspection, nondistended, normoactive bowel sounds present, Soft to palpation and non-tender PALPATION: Yes Soft to palpation Extremity: COMMON NORMALS: no joint enlargement and no pedal edema Neuro: COMMON NORMALS: patient oriented x3 and moves all extremities Skin: COMMON NORMALS: no rashes or lesions noted GENERAL SKIN EXAM: no rashes or lesions noted Data : 05/05/21 05:55 05/05/21 05:55 A&P Assessment and plan (1) Acute and chronic respiratory failure: Requested again for sputum culture as he is still having productive cough, and it still has not been collected. Oxygenation slightly better, down to 8 L. Normally he is on 4. For severe COVID-19 continue Decadron, remdesivir, repeat CRP is decreasing. Continue for now with empiric antibiotics with Levaquin, Zosyn, vancomycin Possible sepsis resolving, leukocytosis improving. Fever so far without recurrence. Tachycardia with improvement. Weaned off BiPAP. CT of the chest with interstitial pneumonitis. Otherwise chronic findings. Status: Acute (2) Tachycardia: Resolved. Likely triggered by hypoxia. Ectopic rhythm on EKG. Continue diltiazem. Monitor on telemetry. Status: Acute (3) COVID-19: Severe COVID-19, as above. Status: Acute Additional A&P Information IPF: Chronically on 4 L of oxygen. In the process/awaiting callback from [place] regarding transplant wait list. Continue pirfenidone if family can bring. History of pneumocystis pneumonia: Currently on Bactrim, continue History of A. fib CAD Steroid-induced diabetes Compression fractures Other chronic medical problems noted Attestations Medical Necessity Statement*: Continue admission for assessment and management of acute on chronic hypoxic respiratory failure, severe COVID-19, pneumonia superimposed on IPF-COPD combination. Coding Level of Care Code Acute [employer] Systems Engineer for [facility] Diagnoses Acute and chronic respiratory failure J96.20 Tachycardia R00.0 COVID-19 U07.1
[2021-05-05] MEDS: sennosides-docusate Tablet 1 TAB PO (22:01)
--- NOTE | 2021-05-05 22:06 | PC.NURSE ---
c/o constipation, order received for Daltonna S from Dr. Perez
[2021-05-06] VITALS (12 sets, daily range): BP systolic 91–124; BP diastolic 56–76; PULSE 82–102; RESP 16–21; TEMP 36.4–36.7; O2SAT 90–97
--- NOTE | 2021-05-06 02:02 | PC.NURSE ---
Dr. Perez notified of 1:4 blood cultures gram positive rods, no new order
[2021-05-06] MEDS: piperacillin-tazobactam 3.375 GM in sodium chloride 0.9% (plus) 50 ML IV ×3 (03:13→20:37)
[2021-05-06 06:27] LABS: Glucose Point of Care 137 mg/dL (70-110)
[2021-05-06 06:47] LABS: Basophils % 0.1 %; Hematocrit 34.1 % (42.0-52.0); Hemoglobin 11.1 g/dL (11.7-16.6); Lymphocytes # 1.2 10^3/uL (0.8-4.8); Lymphocytes % 11.3 %; Mean Corpuscular HGB Conc 32.6 g/dL (30.0-36.0); Mean Corpuscular Hemoglobin 25.7 pg (28.0-34.0); Mean Corpuscular Volume 78.9 fl (80-94); Mean Platelet Volume 8.8 fL (7.4-10.4); Monocytes # 0.4 10^3/uL (0.2-0.9); Monocytes % 3.7 %; Neutrophils # 8.69 10^3/uL (1.8-7.7); Neutrophils % 84.3 %; Nucleated Red Blood Cells % 0 %; Platelet Count 208 10^3/cmm (130-400); Red Blood Count 4.32 10^6/uL (4.1-5.3); Red Cell Distribution Width 15.7 % (12.1-15.1); White Blood Count 10.3 10^3/uL (4.0-10.0)
[2021-05-06 07:15] LABS: Alanine Aminotransferase 25 U/L (0-41); Albumin Level 3.2 g/dL (3.5-5.2); Alkaline Phosphatase 70 IU/L (40-130); Anion Gap 15.3 (5-19); Aspartate Amino Transferase 14 U/L (0-40); Blood Urea Nitrogen 20 mg/dL (8-23); Calcium 7.9 mg/dL (8.5-10.5); Carbon Dioxide 23 mmol/L (22-29); Chloride 100 mmol/L (98-107); Globulin 1.6 g/dL (1.3-4.6); Glomerular Filtration Rate 136.1 mL/min (90-130); Glucose 134 mg/dL (65-115); Osmolality Calculated 283 mOsm/kg (285-295); Potassium 4.3 mmol/L (3.5-5.1); Sodium 134 mmol/L (136-145); Total Bilirubin 0.3 mg/dL (0.15-1.2); Total Protein 4.8 g/dL (6.6-8.7)
[2021-05-06 07:22] LABS: D Dimer 0.34 ug/mIFEU (0-0.59)
[2021-05-06] MEDS: LORazepam 1 mg Tablet PO ×2 (08:10→20:40)
[2021-05-06] MEDS: atorvastatin 40 mg Tablet 20 MG PO (08:10)
[2021-05-06] MEDS: clopidogrel 75 mg Tablet PO (08:10)
[2021-05-06] MEDS: apixaban 5 mg Tablet 2.5 MG PO ×2 (08:10→16:57)
[2021-05-06] MEDS: loratadine 10 mg Tablet PO (08:11)
[2021-05-06] MEDS: benzonatate 100 mg Capsule PO (08:11)
[2021-05-06] MEDS: dilTIAZem ER (24HR) 240 mg Capsule PO (08:11)
[2021-05-06] MEDS: escitalopram 10 mg Tablet 20 MG PO (08:11)
[2021-05-06] MEDS: fluticasone nasal spray 16gm Btl 2 SPRAY INTRANASAL (08:13)
[2021-05-06] MEDS: vancomycin 1,250 MG/250 ML PIGGYBACK 250 MG IV ×2 (08:15→19:29)
[2021-05-06 11:10] LABS: Glucose Point of Care 113 mg/dL (70-110)
[2021-05-06] MEDS: levofloxacin-dextrose 5 % 750 MG/150 ML PREMIX 100 MG IV (14:51)
[2021-05-06] MEDS: dexamethasone 10 mg/mL INJ 6 MG IVP (16:58)
[2021-05-06] MEDS: remdesivir 100 MG in sodium chloride 0.9% (100 ml) 100 ML IV (16:59)
[2021-05-06 17:06] LABS: Glucose Point of Care 144 mg/dL (70-110)
[2021-05-06] MEDS: cyclobenzaprine 10 mg Tablet PO (20:40)
[2021-05-06 21:42] LABS: Glucose Point of Care 161 mg/dL (70-110)
--- NOTE | 2021-05-06 21:51 | P.PN_ITS ---
Subjective Subjective: Interval history: Productive cough. Very easy fatigability. Got quite drained walking to the bathroom. Denies chest pain or pressure. No nausea vomiting or diarrhea. Vitals/I&O/Wt Last Vital Signs Temp 97.5 F L 05/06/21 20:00 Pulse 93 05/06/21 20:00 Resp 18 05/06/21 20:00 BP 124/76 05/06/21 20:00 Pulse Ox 92 05/06/21 20:00 05/06/21 05/06/21 05/06/21 06:59 14:59 22:59 Intake Total 350 / 1910 830 / 830 750 / 1580 Output Total 450 / 450 Balance 350 / 760 830 / 830 300 / 1130 Weight last 48 hrs Weight 75.251 kg Physical Exam Const: COMMON NORMALS: no acute distress and patient oriented x3 GENERAL APPEARANCE: cooperative and comfortable HENMT: COMMON NORMALS: oropharynx normal Neck/C-Spine: COMMON NORMALS: no JVD Resp: COMMON NORMALS: normal respiratory effort EFFORT & INSPECTION: Yes able to speak in complete sentences AUSCULTATION: crackles (fine) Cardio: COMMON NORMALS: no JVD, regular rhythm, S1 normal heart sound present, S2 normal heart sound present and No murmurs present (Cardio) RHYTHM: regular rhythm HEART SOUNDS: S1 normal heart sound present and S2 normal heart sound present GI: COMMON NORMALS: Normal to inspection, nondistended, normoactive bowel sounds present, Soft to palpation and non-tender PALPATION: Yes Soft to palpation Extremity: COMMON NORMALS: no joint enlargement and no pedal edema Neuro: COMMON NORMALS: patient oriented x3 and moves all extremities Skin: COMMON NORMALS: no rashes or lesions noted GENERAL SKIN EXAM: no rashes or lesions noted Data : 05/06/21 06:30 05/06/21 06:30 Micro: Microbiology 05/06/21 12:20 Gram Stain - Final Sputum - Expectorated Sputum 05/02/21 12:36 Blood Culture - Preliminary Blood A&P Assessment and plan (1) Acute and chronic respiratory failure: Gave sputum sample today. Follow-up. Leukocytosis decreasing. Oxygenation without significant improvement, but not worse, slightly better O2 requirement down to 7 L today. Very easy exhaustion with walking to the restroom. Requested for commode at bedside. Up with assist. For severe COVID-19 continue Decadron. Completed remdesivir. Continue with empiric antibiotics with Levaquin, Zosyn, vancomycin Possible sepsis resolving, leukocytosis improving. Fever so far without recurrence. Tachycardia with improvement. Weaned off BiPAP. CT of the chest with interstitial pneumonitis. Otherwise chronic findings. Status: Acute (2) Tachycardia: Resolved. Likely triggered by hypoxia. Ectopic rhythm on EKG. Continue diltiazem. Monitor on telemetry. Status: Acute (3) COVID-19: Severe COVID-19, as above. Status: Acute Additional A&P Information IPF: Chronically on 4 L of oxygen. In the process/awaiting callback from [place] regarding transplant wait list. Continue pirfenidone if family can bring. History of pneumocystis pneumonia: Currently on Bactrim, continue History of A. fib CAD Steroid-induced diabetes Compression fractures Other chronic medical problems noted Attestations Medical Necessity Statement*: Continue admission for assessment management of acute on chronic hypoxic respiratory failure with severe COVID-19, underlying IPF-COPD. Coding Level of Care Code Acute Dispersion Mixer for [facility] Diagnoses Acute and chronic respiratory failure J96.20 Tachycardia R00.0 COVID-19 U07.1
[2021-05-06] MEDS: insulin lispro 100 unit/1 mL SUBCUT (21:54)
[2021-05-07] VITALS (12 sets, daily range): BP systolic 100–124; BP diastolic 66–73; PULSE 89–106; RESP 16–18; TEMP 36.3–36.7; O2SAT 90–98
[2021-05-07] MEDS: piperacillin-tazobactam 3.375 GM in sodium chloride 0.9% (plus) 50 ML IV ×3 (03:06→17:18)
[2021-05-07 05:51] LABS: Basophils % 0.1 %; Hematocrit 36.1 % (42.0-52.0); Hemoglobin 11.7 g/dL (11.7-16.6); Lymphocytes # 1.4 10^3/uL (0.8-4.8); Lymphocytes % 14.4 %; Mean Corpuscular HGB Conc 32.4 g/dL (30.0-36.0); Mean Corpuscular Hemoglobin 25.9 pg (28.0-34.0); Mean Corpuscular Volume 79.9 fl (80-94); Mean Platelet Volume 9.2 fL (7.4-10.4); Monocytes # 0.4 10^3/uL (0.2-0.9); Monocytes % 3.7 %; Neutrophils # 7.71 10^3/uL (1.8-7.7); Neutrophils % 80.9 %; Nucleated Red Blood Cells % 0 %; Platelet Count 206 10^3/cmm (130-400); Red Blood Count 4.52 10^6/uL (4.1-5.3); Red Cell Distribution Width 15.8 % (12.1-15.1); White Blood Count 9.5 10^3/uL (4.0-10.0)
[2021-05-07 06:12] LABS: D Dimer 0.41 ug/mIFEU (0-0.59)
[2021-05-07 06:15] LABS: Alanine Aminotransferase 25 U/L (0-41); Alkaline Phosphatase 63 IU/L (40-130); Anion Gap 17.6 (5-19); Aspartate Amino Transferase 12 U/L (0-40); Blood Urea Nitrogen 20 mg/dL (8-23); Calcium 8.7 mg/dL (8.5-10.5); Carbon Dioxide 21 mmol/L (22-29); Chloride 100 mmol/L (98-107); Globulin 2.6 g/dL (1.3-4.6); Glomerular Filtration Rate 167.9 mL/min (90-130); Glucose 134 mg/dL (65-115); Osmolality Calculated 283 mOsm/kg (285-295); Potassium 4.6 mmol/L (3.5-5.1); Sodium 134 mmol/L (136-145); Total Bilirubin 0.2 mg/dL (0.15-1.2); Total Protein 5.6 g/dL (6.6-8.7)
[2021-05-07 06:42] LABS: Glucose Point of Care 155 mg/dL (70-110)
[2021-05-07] MEDS: insulin lispro 100 unit/1 mL SUBCUT ×4 (08:28→22:15)
[2021-05-07] MEDS: apixaban 5 mg Tablet 2.5 MG PO (08:28)
[2021-05-07] MEDS: escitalopram 10 mg Tablet 20 MG PO (08:28)
[2021-05-07] MEDS: atorvastatin 40 mg Tablet 20 MG PO (08:28)
[2021-05-07] MEDS: loratadine 10 mg Tablet PO (08:28)
[2021-05-07] MEDS: dilTIAZem ER (24HR) 240 mg Capsule PO (08:28)
[2021-05-07] MEDS: clopidogrel 75 mg Tablet PO (08:28)
[2021-05-07] MEDS: fluticasone nasal spray 16gm Btl 2 SPRAY INTRANASAL (08:31)
[2021-05-07] MEDS: vancomycin 1,250 MG/250 ML PIGGYBACK 250 MG IV (08:34)
[2021-05-07 11:15] LABS: Glucose Point of Care 173 mg/dL (70-110)
--- NOTE | 2021-05-07 11:40 | XR_ITS ---
WS: [id number] CHEST XRAY TECHNIQUE: Portable chest. CLINICAL INFORMATION: covid COMPARISON: May 02, 2021 FINDINGS: Shallow inspiration. Heart: Cardiomegaly. Lungs: Coarse bilateral perihilar and lower lobe infiltrates appear stable compared to May 02. Surgical clips about the right hilum. Bones: Postoperative changes lower cervical spine. XR/XR chest 1V portable [id number] IMPRESSION: 1. Coarse bilateral perihilar and lower lobe pulmonary infiltrates not signifi cantly changed since May 02, 2021. 2. Stable cardiomegaly. 3. Shallow inspiration.
[2021-05-07] MEDS: FUROsemide 10 mg/mL SDV 4mL 40 MG IVP (12:12)
[2021-05-07] MEDS: dexamethasone 10 mg/mL INJ 6 MG IVP (12:12)
[2021-05-07 12:20] LABS: Iron 59 ug/dL (59-158); Percent Saturation 20.4 % (20-50); Total Iron Binding Capacity 288 mcg/dl; Unsaturated Iron Binding 229 ug/dL (112-347)
[2021-05-07 12:27] LABS: Procalcitonin 0.08 ng/mL (0-0.5)
[2021-05-07 12:48] LABS: ABG PH Result 7.46 (7.35-7.45); Alveolar-Arterial Oxygen Gradi 4.5 mmHg (5-10); Arterial Blood Gas Hematocrit 40.3 % (42-52); Base Excess ABG 3.4 mmol/L (-2.0-2.0); Blood Gas Allen Test Pos; Blood Gas Sample Type Arterial; Carboxyhemoglobin < 0.0 %THgb (0.4-20.1); HCO3 ABG 27.4 mmol/L (22-26); HGB O2 Sat 91.5 % (95-100); Ionized Calcium Level - ABG 1.2 mmol/L (1.1-1.4); Methemoglobin 0.9 % (0.4-1.5); Oxygen Saturation ABG 92.2; PO2 ABG 65.5 mmHg (80.0-100.0); Potassium Level - ABG 3.5 mmol/L (3.5-5.0); Total Hemoglobin 13.1 g/dL (14-18)
[2021-05-07 12:49] LABS: Blood Gas Operator Identificat ED; Blood Gas Sample Site Radial, right; Oxygen Device NC
[2021-05-07] MEDS: sulfamethoxazole-trimeth DS 160-800 mg Tablet 1 TAB PO (14:27)
[2021-05-07] MEDS: levofloxacin-dextrose 5 % 750 MG/150 ML PREMIX 100 MG IV (14:28)
[2021-05-07] MEDS: ipratropium-albuterol 3 mL Neb INHALATION ×2 (15:44→20:33)
[2021-05-07 16:06] LABS: Glucose Point of Care 163 mg/dL (70-110)
--- NOTE | 2021-05-07 16:45 | P.CONIM_ITS ---
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 Patient follows up with Dr. Mayfield pulmonology clinic-currently on pirfenidone for his pulmonary fibrosis and also attends pulmonary rehabilitation. Most recently he had an admission in April 1 week for worsening oxygen requirement and after passing out at home. His prednisone has been increased to 60 mg daily and was discharged on 04/20/2021 with tapering dose. He also takes Bactrim for PCP prophylaxis and Breztri 2 puffs twice daily for his COPD. Has significant history of smoking 2 pack/day for 40 years and quit using tobacco in 2019. Post discharge she will followed up with Dr. Mayfield and was recommended to continue tapering his p.o. prednisone follow-up in 1 month. On 05/02/2021-patient came to emergency room for worsening shortness of breath and spiking fevers. Imaging showed findings consistent with chronic interstitial pneumonitis with no significant change. His COVID-19 testing came back positive and patient was admitted for impending respiratory failure. Since admission he was requiring 6 to 7 L on nasal cannula and today he is on high flow nasal cannula 50%. Pulmonary critical care consult requested for hypoxia and patient with underlying combined emphysema and pulmonary fibrosis with new diagnosis COVID-19 pneumonia. Patient seen at bedside today He is currently on 50% high flow nasal cannula reports; he is feeling short of breath on exertion ABG today morning on 7 L showed 7.4 6/39/65/27/92% 1 out of 4 blood cultures grew Corynebacterium species-currently patient is on Zosyn, Levaquin, vancomycin Other labs and imaging reviewed Review of Systems General: Reports: 10 or more systems reviewed and unremarkable except in HPI and below Medications/Allergies Home Medications Medication Instructions Recorded Confirmed Last Taken Type escitalopram oxalate 10 mg tablet 20 mg PO DAILY tab 03/14/20 05/02/21 01/20/21 History Breztri Aerosphere 2 inh INHALATION BID 09/12/20 05/02/21 01/20/21 History albuterol sulfate [ProAir HFA] 2 puff INHALATION Q4H PRN 09/12/20 05/02/21 Unknown History fluticasone propionate 2 spray INTRANASAL DAILY 09/12/20 05/02/21 Unknown History nitroglycerin 0.4 mg sublingual 0.4 mg SUBLINGUAL Q5M PRN #25 tab 09/12/20 05/02/21 Unknown Rx tablet lorazepam [Ativan] 1 mg PO TID PRN 09/13/20 05/02/21 Unknown History acetaminophen 325 mg tablet 650 mg PO Q6H PRN #240 tab 09/28/20 05/02/21 Unknown Rx [id number] Ventilator 10/02/20 05/02/21 Unknown History oxygen-air delivery systems 10/02/20 05/02/21 Unknown History atorvastatin 20 mg tablet 20 mg PO DAILY 90 Days #90 tab 10/18/20 05/02/21 01/20/21 Rx benzonatate 100 mg capsule 100 mg PO TID PRN 90 Days #270 cap 11/10/20 05/02/21 Unknown Rx clopidogrel 75 mg tablet 75 mg PO DAILY 90 Days #90 tab 11/15/20 05/02/21 01/20/21 Rx sulfamethoxazole 800 1 tab PO .COMPLEX 90 Days #45 tab 11/15/20 05/02/21 Unknown Rx mg-trimethoprim 160 mg tablet cyclobenzaprine 10 mg tablet 10 mg PO BEDTIME PRN tab 12/08/20 05/02/21 01/20/21 History ondansetron 4 mg PO Q8H PRN #7 tab 12/30/20 05/02/21 Unknown Rx loratadine 10 mg PO DAILY 01/21/21 05/02/21 01/20/21 History melatonin 10 mg PO BEDTIME 01/21/21 05/02/21 01/19/21 History diltiazem HCl 240 mg 240 mg PO DAILY #90 cap 03/12/21 05/02/21 Unknown Rx capsule,extended release 24 hr Vitamin C 1 tab PO DAILY 04/18/21 05/02/21 Unknown History Vitamin D3 Gummies 1 tab PO DAILY 04/18/21 05/02/21 Unknown History albuterol sulfate 2.5 mg INHALATION QID PRN 04/18/21 05/02/21 Unknown History sildenafil 25 mg PO PRN PRN 04/18/21 05/02/21 Unknown History prednisone 10 mg tablet See Rx Instructions .ROUTE .COMPLEX 04/23/21 05/02/21 Unknown History pirfenidone 801 mg tablet 801 mg PO TID #90 tab 04/27/21 05/02/21 Unknown Rx Eliquis 2.5 mg PO BID 05/02/21 05/02/21 Unknown History Allergies Allergy/AdvReac Type Severity Reaction Status Date / Time insect venom Allergy ALGY-Difficulty Verified 05/02/21 10:40 Swallowing Current Medications Generic Name Dose Route Start Last Admin Trade Name Freq PRN Reason Stop Dose Admin Acetaminophen 650 mg 05/02/21 18:59 05/02/21 21:24 Acetaminophen 325 Mg Tablet PO 650 mg Q6H PRN Administration pain Albuterol/Ipratropium 3 ml 05/07/21 15:00 05/07/21 15:44 Ipratropium-Albuterol 3 Ml Neb INHALATION 3 ml Q6H.RESPIRATORY ANISHA Administration Atorvastatin Calcium 20 mg 05/03/21 09:00 05/07/21 08:28 Atorvastatin 40 Mg Tablet PO 20 mg DAILY ANISHA Administration Benzonatate 100 mg 05/02/21 18:59 05/06/21 08:11 Benzonatate 100 Mg Capsule PO 100 mg TID PRN Administration cough Clopidogrel Bisulfate 75 mg 05/03/21 09:00 05/07/21 08:28 Clopidogrel 75 Mg Tablet PO 75 mg DAILY ANISHA Administration Cyclobenzaprine HCl 10 mg 05/02/21 18:59 05/06/21 20:40 Cyclobenzaprine 10 Mg Tablet PO 10 mg BEDTIME PRN Administration Muscle Spasm Dexamethasone 6 mg 05/07/21 12:00 05/07/21 12:12 Dexamethasone 10 Mg/Ml Inj IVP 6 mg Q12H ANISHA Administration Diltiazem HCl 240 mg 05/03/21 09:00 05/07/21 08:28 Diltiazem Er (24hr) 240 Mg Capsule PO 240 mg DAILY ANISHA Administration Escitalopram Oxalate 20 mg 05/03/21 09:00 05/07/21 08:28 Escitalopram 10 Mg Tablet PO 20 mg DAILY ANISHA Administration Fluticasone Propionate 2 spray 05/03/21 09:00 05/07/21 08:31 Fluticasone Nasal [place] 16gm Btl INTRANASAL 2 spray DAILY ANISHA Administration Levofloxacin/Dextrose 750 mg in 150 mls @ 100 mls/hr 05/03/21 12:00 05/07/21 16:09 Levaquin-D5w IV Infused Q24H ANISHA Infusion Protocol Piperacillin Sod/Tazobactam 50 mls @ 12.5 mls/hr 05/02/21 18:59 05/07/21 16:11 Sod 3.375 gm/ Sodium Chloride IV Infused Q8H ANISHA Infusion Protocol Vancomycin/PEG/NADA/Lysine/Water 1,250 mg in 250 mls @ 250 mls/hr 05/02/21 20:00 05/07/21 10:02 Vancocin IV Infused Q12H ANISHA Infusion Insulin Human Lispro 0 unit 05/02/21 18:59 05/07/21 12:10 Insulin Lispro 100 Unit/1 Ml SUBCUT 2 unit WM&BEDTIME ANISHA Administration Protocol Loratadine 10 mg 05/03/21 09:00 05/07/21 08:28 Loratadine 10 Mg Tablet PO 10 mg DAILY ANISHA Administration Lorazepam 1 mg 05/02/21 18:59 05/06/21 20:40 Lorazepam 1 Mg Tablet PO 1 mg TID PRN Administration Anxiety Non-Formulary Medication 10 mg 05/02/21 21:00 05/06/21 20:46 Melatonin PO Not Given BEDTIME ANISHA Non-Formulary Medication 801 mg 05/02/21 21:00 05/07/21 14:27 Pirfenidone [Esbriet] PO 801 mg TID ANISHA Administration Senna/Docusate Sodium 1 tab 05/06/21 09:00 05/07/21 08:29 Sennosides-Docusate Tablet PO Not Given DAILY ANISHA Trimethoprim/Sulfamethoxazole 1 tab 05/04/21 14:00 05/07/21 14:27 Sulfamethoxazole-Trimeth Ds 160-800 Mg Tablet PO 1 tab QMWF ANISHA Administration Protocol PFSH Acute PFSH: Medical History Abnormal stress test 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 Aspergillosis Atrial tachycardia COPD (chronic obstructive pulmonary disease) Coronary artery disease Cubital tunnel syndrome on right Diabetes Diabetes Emphysema of lung Erectile dysfunction Gross hematuria High risk medication use Joint pain Left lower quadrant pain P-ANCA titer positive Pneumocystis jiroveci pneumonia Pulmonary nodule Surgical absence of teeth SVT (supraventricular tachycardia) Tobacco abuse Urolithiasis Surgical History H/O neck surgery H/O: vasectomy History of ankle surgery History of dental surgery History of facial surgery History of lung biopsy S/P lobectomy of lung Family History Father , AT AGE 78 Cancer Hypertension Mother Diabetes Brother Diabetes Sister Diabetes Father Cancer Prostate Social History Quit status (tobacco): has quit using tobacco Year quit tobacco: 2019 - 2PPD x 40 Years Second hand smoke exposure: No Alcohol intake: never Marital status: Number of children: 3 Number of grandchildren: 4 Current occupational status: retired and disabled History of recent travel: No Dian/Temple: Taoism Vitals/I&O/Wt Last Vital Signs Temp 97.6 F 05/07/21 16:00 Pulse 96 05/07/21 16:00 Resp 18 05/07/21 16:00 BP 100/71 05/07/21 16:00 Pulse Ox 96 05/07/21 16:00 05/07/21 05/07/21 05/07/21 06:59 14:59 22:59 Intake Total 50 / 1870 780 / 780 200 / 980 Output Total 700 / 1500 1800 / 1800 450 / 2250 Balance -650 / 370 -1020 / -1020 -250 / -1270 Physical Exam Narrative: EXAM NARRATIVE: General: alert, NAD HEENT: conj clear, EOMI, PERRL, mmm, Neck: supple, no meningismus Heme: no cervical LAP Pulmonary: Bilateral fine crepitations, predominantly on bilateral lower lobes Cardiovascular: rrr, nl s1s2, no mrg Abdomen: soft, nt, nd, no r/g, bs+ Extremities: pulses +, no edema, no c/c : no CVA tenderness Skin: intact, no rash MSK: no back or neck pain Neurologic: grossly intact Data Labs: Other Labs: Radiology Impressions Chest CT 05/02/21 18:59 IMPRESSION: 1. Status post right upper lobectomy. 2. 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 3. Peripheral acinar emphysema. 4. No appreciable significant overall change since 04/18/2021. 5. Coronary artery disease. Chest X-Ray 05/07/21 11:40 IMPRESSION: 1. Coarse bilateral perihilar and lower lobe pulmonary infiltrates not significantly changed since May 02, 2021. 2. Stable cardiomegaly. 3. Shallow inspiration. Laboratory Results WBC 9.5 10^3/uL (4.0- 10.0) 05/07/21 05:36 RBC 4.52 10^6/uL (4.1 -5.3) 05/07/21 05:36 Hgb 11.7 g/dL (11.7-1 6.6) 05/07/21 05:36 Hct 36.1 % (42.0-52.0 ) L 05/07/21 05:36 MCV 79.9 fl (80-94) L 05/07/21 05:36 MCH 25.9 pg (28.0-34. 0) L 05/07/21 05:36 MCHC 32.4 g/dL (30.0-3 6.0) 05/07/21 05:36 RDW 15.8 % (12.1-15.1 ) H 05/07/21 05:36 Plt Count 206 10^3/cmm (130 -400) 05/07/21 05:36 MPV 9.2 fL (7.4-10.4) 05/07/21 05:36 Neut % (Auto) 80.9 % 05/07/21 05:36 Lymph % (Auto) 14.4 % 05/07/21 05:36 Bertie % (Auto) 3.7 % 05/07/21 05:36 Eos % (Auto) 0.0 % 05/07/21 05:36 Baso % (Auto) 0.1 % 05/07/21 05:36 Neut # (Auto) 7.71 10^3/uL (1.8 -7.7) H 05/07/21 05:36 Lymph # (Auto) 1.4 10^3/uL (0.8- 4.8) 05/07/21 05:36 Bertie # (Auto) 0.4 10^3/uL (0.2- 0.9) 05/07/21 05:36 Eos # (Auto) 0.0 10^3/uL (0.0- 0.8) 05/07/21 05:36 Baso # (Auto) 0.0 10^3/uL (0.0- 0.1) 05/07/21 05:36 Nucleated RBC % (a uto) 0 % 05/07/21 05:36 Nucleated RBCs # 0.0 /100WBC 05/07/21 05:36 D-Dimer 0.41 ug/mIFEU (0- 0.59) 05/07/21 05:36 Specimen Type Arterial 05/07/21 12:38 Sample Site Radial, right 05/07/21 12:38 ABG pH 7.46 (7.35-7.45) H 05/07/21 12:38 ABG pCO2 39.0 mmHg (35-45) 05/07/21 12:38 ABG pO2 65.5 mmHg (80.0-1 00.0) L 05/07/21 12:38 ABG HCO3 27.4 mmol/L (22-2 6) H 05/07/21 12:38 ABG O2 Saturation 92.2 05/07/21 12:38 ABG Base Excess 3.4 mmol/L (-2.0- 2.0) H 05/07/21 12:38 Erickson Test Pos 05/07/21 12:38 A-a O2 Gradient 4.5 mmHg (5-10) L 05/07/21 12:38 Hematocrit 40.3 % (42-52) L 05/07/21 12:38 Hgb O2 Saturation 91.5 % (95-100) L 05/07/21 12:38 Carboxyhemoglobin < 0.0 %THgb (0.4- 20.1) L 05/07/21 12:38 Methemoglobin 0.9 % (0.4-1.5) 05/07/21 12:38 Total Hemoglobin 13.1 g/dL (14-18) L 05/07/21 12:38 Sodium 135.0 mmol/L (131 -143) 05/07/21 12:38 Potassium 3.5 mmol/L (3.5-5 .0) 05/07/21 12:38 Glucose 175.0 mg/dL (70-1 15) H 05/07/21 12:38 Ionized Calcium 1.2 mmol/L (1.1-1 .4) 05/07/21 12:38 O2 Delivery Device Nc 05/07/21 12:38 O2 Liters/Min 7.0 % 05/07/21 12:38 Plumbing Manager ID Ed 05/07/21 12:38 Sodium 134 mmol/L (136-1 45) L 05/07/21 05:36 Potassium 4.6 mmol/L (3.5-5 .1) 05/07/21 05:36 Chloride 100 mmol/L (98-10 7) 05/07/21 05:36 Carbon Dioxide 21 mmol/L (22-29) L 05/07/21 05:36 Anion Gap 17.6 (5-19) 05/07/21 05:36 BUN 20 mg/dL (8-23) 05/07/21 05:36 Creatinine 0.5 mg/dL (0.7-1. 2) L 05/07/21 05:36 GFR Calculation 167.9 mL/min (90- 130) H 05/07/21 05:36 Glucose 134 mg/dL (65-115 ) H 05/07/21 05:36 POC Glucose 163 mg/dL (70-110 ) H 05/07/21 16:03 Calculated Osmolal ity 283 mOsm/kg (285- 295) L 05/07/21 05:36 Lactic Acid 6.3 mmol/L (0.5-2 .2) H* 05/02/21 10:46 Lactic Acid (Sepsi s) 2.6 mmol/L (0.5-2 .2) H 05/02/21 13:34 Calcium 8.7 mg/dL (8.5-10 .5) 05/07/21 05:36 Iron 59 ug/dL (59-158) 05/07/21 05:36 TIBC 288 mcg/dl 05/07/21 05:36 % Saturation 20.4 % (20-50) 05/07/21 05:36 Unsat Iron Binding 229 ug/dL (112-34 7) 05/07/21 05:36 Total Bilirubin 0.2 mg/dL (0.15-1 .2) 05/07/21 05:36 AST 12 U/L (0-40) 05/07/21 05:36 ALT 25 U/L (0-41) 05/07/21 05:36 Alkaline Phosphata se 63 IU/L (40-130) 05/07/21 05:36 C-Reactive Protein 34.9 mg/L (0.0-4. 9) H 05/05/21 05:55 Total Protein 5.6 g/dL (6.6-8.7 ) L 05/07/21 05:36 Albumin 3.0 g/dL (3.5-5.2 ) L 05/07/21 05:36 Globulin 2.6 g/dL (1.3-4.6 ) 05/07/21 05:36 Procalcitonin 0.08 ng/mL (0-0.5 ) 05/07/21 05:36 Vancomycin Trough 11.4 ug/mL (10-15 ) 05/04/21 06:39 Coronavirus 229E ( PCR) Not detected (NO T DETECT) 05/02/21 12:55 SARS-CoV-2 (PCR) Detected (NOT DE TECT) A 05/02/21 12:55 Micro: Micro: Microbiology 05/02/21 12:36 Blood Culture - Pr eliminary Blood Corynebacterium species 05/02/21 12:38 Blood Culture - Fi nal Blood NO GROWTH AFTER 5 DAYS 05/06/21 12:20 Gram Stain - Final Sputum - Expector ated Sputum Sputum Culture - P reliminary A&P Assessment and plan (1) Acute and chronic respiratory failure with hypoxia: Status: Chronic (2) COVID-19: Status: Acute (3) Pulmonary interstitial fibrosis: Status: Acute (4) Obstructive sleep apnea: Status: Acute (5) COPD (chronic obstructive pulmonary disease): Status: Chronic Qualifiers: COPD type: emphysema Emphysema type: unspecified Qualified Code(s): J43.9 - Emphysema, unspecified (6) Pulmonary embolism: Status: Acute Qualifiers: Acute cor pulmonale presence: unspecified Chronicity: chronic Pulmonary embolism type: other Qualified Code(s): I27.82 - Chronic pulmonary embolism #Acute on chronic respiratory failure with hypoxia in patient with known combined pulmonary fibrosis emphysema syndrome-on chronic steroids and Trelegy #Recently diagnosed with COVID-19 pneumonia 05/02/2021 #History of obstructive sleep apnea-on BiPAP #History of multiple segmental and subsegmental PE in the right side-on Eliquis #History of PCP pneumonia-previously treated with atovaquone and currently on Bactrim prophylaxis #CAD s/p stent -Baseline requires 4 L on oxygen pendant at home -Here requiring 7 L nasal cannula without oxygen pendant-today placed on high flow nasal cannula 50% -ABG today morning on 7 L showed 7.4 6/39/65/27/92% -CT chest 05/02/2021: No appreciable change when compared to CT 04/18/2021. Chronic interstitial pattern noted -He was on tapering dose of prednisone 40 mg p.o. daily-switch to dexamethasone 6 mg during this admission -Completed 5 doses of remdesivir -MRSA nares negative, bacterial antigens negative, Legionella urine antigen negative -Blood cultures 04/17 bottles positive for corynebacterium -Currently covered with vancomycin/Levaquin/Zosyn -we will recommend to DC vancomycin as MRSA nares negative -On Plavix, Lipitor for CAD and Eliquis for history of PE -On DuoNeb nebulization every 6 hours scheduled and Pulmicort 0.5 mg every 12 hours -Most recent PFTs in December 2020 showed FEV1 2.16 L or 61% predicted and FVC 2.89 L 63% predicted and ratio 75%. TLC 64% and DLCO 43%. Compared to May 2019: FEV1 2.49 L 70% predicted, FVC 3.46 L 75% predicted, ratio 72%, TLC 70% and DLCO 55% -Patient is on waiting list for lung transplant evaluation for his underlying combined pulmonary fibrosis and emphysema -Patient was attending pulmonary rehabilitation as outpatient -Overall appears to be at baseline respiratory rascon-May need 24 to 48 hours for close monitoring for respiratory desaturation given his COVID-19 symptoms -Patient understands that his recovery will be very difficult if he gets intubated but he is hopeful that he may get lung transplant, so still thinking about getting intubated if needed. Just today received a call from [facility] that he will be given appointment for evaluation -Recommended to place patient on his oxygen pendant and continue BiPAP at nighttime -He will benefit from subacute rehab for at least 2 to 3 weeks due to deconditioning from [id number] hospitalizations -Ongoing discussions about goals of care regarding DNI and DNR Recommendations conveyed to hospitalist taking care of the patient Consult Attestations Medical Necessity Statement: Observation for impending respiratory failure on patient with underlying pulmonary fibrosis and recent diagnosis of COVID-19 pneumonia Time Spent in Patient Care: Greater than 35 minutes (>than 50% of time spent in counselling and/or direct pt care on unit) . Critical Care Time: Critical Care Time (min): 45 Coding Level of Care Code New Pt Acute Auto Appraiser for Chg Fwd Patient Type New History Comprehensive Exam Comprehensive Medical Decision Making High Complexity Diagnoses Acute and chronic respiratory failure with hypoxia J96.21 COVID-19 U07.1 Pulmonary interstitial fibrosis J84.10 Obstructive sleep apnea G47.33 COPD (chronic obstructive pulmonary disease) J43.9 COPD type: emphysema Emphysema type: unspecified Pulmonary embolism I27.82 Acute cor pulmonale presence: unspecified Chronicity: chronic Pulmonary embolism type: other Time Spent (min) 45
[2021-05-07] MEDS: apixaban 5 mg Tablet PO (17:18)
--- NOTE | 2021-05-07 18:46 | PM.PN ---
Subjective Subjective: Interval history: Productive cough. Very easy fatigability. Got quite drained walking to the bathroom. Denies chest pain or pressure. No nausea vomiting or diarrhea. Vitals/I&O/Wt Last Vital Signs Temp 97.6 F 05/07/21 16:00 Pulse 96 05/07/21 16:00 Resp 18 05/07/21 16:00 BP 100/71 05/07/21 16:00 Pulse Ox 96 05/07/21 16:00 05/07/21 05/07/21 05/07/21 06:59 14:59 22:59 Intake Total 50 / 1870 780 / 780 680 / 1460 Output Total 700 / 1500 1800 / 1800 450 / 2250 Balance -650 / 370 -1020 / -1020 230 / -790 Data : 05/07/21 05:36 05/07/21 05:36 Micro: Microbiology 05/02/21 12:36 Blood Culture - Preliminary Blood Corynebacterium species 05/02/21 12:38 Blood Culture - Final Blood NO GROWTH AFTER 5 DAYS 05/06/21 12:20 Gram Stain - Final Sputum - Expectorated Sputum Sputum Culture - Preliminary A&P Assessment and plan (1) Acute and chronic respiratory failure: Multiple etiology. Most likely a combination of IPF exacerbation in setting of COVID-19 pneumonia and possible superimposed bacterial pneumonia. Hypoxia secondary to COVID-19 pneumonia: Moderate to severe disease. Oxygen supplementation keeping saturation over 86-88 %. We will try to wean off heated high flow and placed on oxygen pendent. Patient is on oral prednisone as an outpatient 40 mg daily. Increase dose of dexamethasone to 6 mg IV twice daily which would be prudent to 40 mg twice daily of prednisone. Has finished for 5 days remdesivir course. Vitamin C, zinc. DuoNebs every 4 hour, desonide twice daily Pulmonary toilet with incentive spirometry flutter valve. We will monitor inflammatory markers including CRP, D-dimer every 48 hours. Will avoid Actemra given high chance of infection and bacterial superinfection D-dimer elevated. CTA negative for pulmonary embolism. For now we will start patient on full dose anticoagulation given history of CVA, patient requiring high oxygen supplementation. Will monitor for anemia or blood loss. Sputum culture pending, check procalcitonin, urine Legionella, bacterial antigen. Continue with home dose of Bactrim for PCP prophylaxis continue Levaquin, Zosyn, MRSA negative. Stop vancomycin. Continue antibiotics to finish 7-day course. Given hypoxia will try to keep patient as negative as possible. Will redose Strict input output charting, daily weights. IV Lasix 40 mg once. Will redose daily depending on blood work and fluid status. Status: Acute (2) COVID-19: Severe COVID-19, as above. Status: Acute (3) Pulmonary interstitial fibrosis: Status: Acute (4) Tachycardia: Resolved. Likely triggered by hypoxia. Ectopic rhythm on EKG. Continue diltiazem. Monitor on telemetry. Status: Acute Additional A&P Information IPF: Chronically on 4 L of oxygen. In the process/awaiting callback from [facility] regarding transplant wait list. Continue pirfenidone if family can bring. History of pneumocystis pneumonia: Currently on Bactrim, continue History of A. fib CAD Steroid-induced diabetes Compression fractures Other chronic medical problems noted CODE STATUS: Has been having ongoing discussion regarding possible DNR/DNI in setting of severe IPF. Attestations Medical Necessity Statement*: Requires further hospitalization for management of acute on chronic hypoxic respiratory failure from IPF exacerbation in setting of COVID-19 pneumonia Time Spent in Patient Care: Greater than 35 minutes (>than 50% of time spent in counselling and/or direct pt care on unit). Coding Level of Care Code Acute Optimization Consultant for [facility] Diagnoses Acute and chronic respiratory failure J96.20 COVID-19 U07.1 Pulmonary interstitial fibrosis J84.10 Tachycardia R00.0
[2021-05-07] MEDS: budesonide 0.5 mg/2 mL Neb INHALATION (20:33)
[2021-05-07] MEDS: cyclobenzaprine 10 mg Tablet PO (21:37)
[2021-05-07] MEDS: LORazepam 1 mg Tablet PO (21:37)
[2021-05-07 22:08] LABS: Glucose Point of Care 198 mg/dL (70-110)
[2021-05-08] VITALS (13 sets, daily range): BP systolic 101–114; BP diastolic 62–74; PULSE 90–113; RESP 16–20; TEMP 36.3–36.8; O2SAT 89–96
[2021-05-08] MEDS: dexamethasone 10 mg/mL INJ 6 MG IVP ×2 (00:04→11:19)
[2021-05-08] MEDS: ipratropium-albuterol 3 mL Neb INHALATION ×4 (00:23→19:41)
[2021-05-08] MEDS: piperacillin-tazobactam 3.375 GM in sodium chloride 0.9% (plus) 50 ML IV ×3 (02:54→17:13)
[2021-05-08 06:18] LABS: Basophils % 0.2 %; Hematocrit 38.6 % (42.0-52.0); Hemoglobin 12.7 g/dL (11.7-16.6); Lymphocytes # 0.7 10^3/uL (0.8-4.8); Lymphocytes % 5.8 %; Mean Corpuscular HGB Conc 32.9 g/dL (30.0-36.0); Mean Corpuscular Hemoglobin 26.1 pg (28.0-34.0); Mean Corpuscular Volume 79.4 fl (80-94); Mean Platelet Volume 8.9 fL (7.4-10.4); Monocytes # 0.2 10^3/uL (0.2-0.9); Monocytes % 1.8 %; Neutrophils # 10.21 10^3/uL (1.8-7.7); Neutrophils % 90.3 %; Nucleated Red Blood Cells % 0 %; Platelet Count 245 10^3/cmm (130-400); Red Blood Count 4.86 10^6/uL (4.1-5.3); Red Cell Distribution Width 15.6 % (12.1-15.1); White Blood Count 11.3 10^3/uL (4.0-10.0)
[2021-05-08 06:37] LABS: Alanine Aminotransferase 28 U/L (0-41); Albumin Level 3.2 g/dL (3.5-5.2); Alkaline Phosphatase 74 IU/L (40-130); Anion Gap 17.4 (5-19); Aspartate Amino Transferase 13 U/L (0-40); Blood Urea Nitrogen 23 mg/dL (8-23); C Reactive Protein 6.8 mg/L (0.0-4.9); Calcium 8.1 mg/dL (8.5-10.5); Carbon Dioxide 23 mmol/L (22-29); Chloride 94 mmol/L (98-107); Globulin 2.5 g/dL (1.3-4.6); Glomerular Filtration Rate 136.1 mL/min (90-130); Glucose 184 mg/dL (65-115); Osmolality Calculated 278 mOsm/kg (285-295); Potassium 4.4 mmol/L (3.5-5.1); Sodium 130 mmol/L (136-145); Total Bilirubin 0.3 mg/dL (0.15-1.2); Total Protein 5.7 g/dL (6.6-8.7)
[2021-05-08 07:00] LABS: Estmated Average Glucose 146; Hemoglobin A1C 6.7 % (4.0-6.0)
[2021-05-08 07:10] LABS: Glucose Point of Care 179 mg/dL (70-110)
[2021-05-08] MEDS: budesonide 0.5 mg/2 mL Neb INHALATION ×2 (08:13→19:41)
[2021-05-08] MEDS: insulin lispro 100 unit/1 mL SUBCUT ×4 (08:39→21:36)
[2021-05-08] MEDS: escitalopram 10 mg Tablet 20 MG PO (08:39)
[2021-05-08] MEDS: apixaban 5 mg Tablet PO ×2 (08:39→17:12)
[2021-05-08] MEDS: dilTIAZem ER (24HR) 240 mg Capsule PO (08:39)
[2021-05-08] MEDS: sennosides-docusate Tablet 1 TAB PO (08:39)
[2021-05-08] MEDS: atorvastatin 40 mg Tablet 20 MG PO (08:40)
[2021-05-08] MEDS: clopidogrel 75 mg Tablet PO (08:40)
[2021-05-08] MEDS: loratadine 10 mg Tablet PO (08:40)
[2021-05-08] MEDS: fluticasone nasal spray 16gm Btl 2 SPRAY INTRANASAL (08:43)
[2021-05-08] MEDS: FUROsemide 40 mg Tablet PO (10:33)
[2021-05-08 11:27] LABS: Glucose Point of Care 248 mg/dL (70-110)
[2021-05-08] MEDS: levofloxacin-dextrose 5 % 750 MG/150 ML PREMIX 100 MG IV (15:01)
--- NOTE | 2021-05-08 16:31 | PM.PN ---
Subjective Subjective: Interval history: Overnight. Denies any nausea, vomiting, headache. Remains on 6 L high flow nasal cannula satting 95%. Having profound difficulty in breathing on minimal exertion. Sat up in the chair for long time during the day. Slight feeling slightly better than yesterday. Had a long discussion regarding goals of care going forward. He states he would not want any kind of intubation but is okay with chest compressions. He is agreeable to go to LTAC if needed for further pulmonary rehab. Vitals/I&O/Wt Last Vital Signs Temp 98.2 F 05/08/21 15:47 Pulse 102 H 05/08/21 15:47 Resp 18 05/08/21 15:47 BP 108/74 05/08/21 15:47 Pulse Ox 95 05/08/21 15:47 05/08/21 05/08/21 05/08/21 06:59 14:59 22:59 Intake Total 170 / 1920 770 / 770 Output Total 350 / 2900 850 / 850 Balance -180 / -980 770 / 770 -850 / -80 Physical Exam Const: COMMON NORMALS: no acute distress and patient oriented x3 GENERAL APPEARANCE: cooperative and comfortable OTHER: Become tachypneic and tachycardic on minimal exertion HENMT: COMMON NORMALS: oropharynx normal Neck/C-Spine: COMMON NORMALS: no JVD Resp: COMMON NORMALS: normal respiratory effort EFFORT & INSPECTION: Yes able to speak in complete sentences AUSCULTATION: crackles (fine) Cardio: COMMON NORMALS: no JVD, regular rhythm, S1 normal heart sound present, S2 normal heart sound present and No murmurs present (Cardio) RHYTHM: regular rhythm HEART SOUNDS: S1 normal heart sound present and S2 normal heart sound present GI: COMMON NORMALS: Normal to inspection, nondistended, normoactive bowel sounds present, Soft to palpation and non-tender PALPATION: Yes Soft to palpation Extremity: COMMON NORMALS: no joint enlargement and no pedal edema Neuro: COMMON NORMALS: patient oriented x3 and moves all extremities Skin: COMMON NORMALS: no rashes or lesions noted GENERAL SKIN EXAM: no rashes or lesions noted Data : 05/08/21 05:38 05/08/21 05:38 Micro: Microbiology 05/06/21 12:20 Gram Stain - Final Sputum - Expectorated Sputum Sputum Culture - Final 05/02/21 12:36 Blood Culture - Preliminary Blood Corynebacterium species 05/02/21 12:38 Blood Culture - Final Blood NO GROWTH AFTER 5 DAYS A&P Assessment and plan (1) Acute and chronic respiratory failure: Multiple etiology. Most likely a combination of IPF exacerbation in setting of COVID-19 pneumonia and possible superimposed bacterial pneumonia. Hypoxia secondary to COVID-19 pneumonia: Moderate to severe disease. Oxygen supplementation keeping saturation over 86-88 %. We will try to wean off heated high flow and placed on oxygen pendent. Dexamethasone 6 mg IV every 12 hourly. Start on barcitinib. Overall 14-day course. Has finished for 5 days remdesivir course. Vitamin C, zinc. DuoNebs every 4 hour, budesonide twice daily Pulmonary toilet with incentive spirometry flutter valve. We will monitor inflammatory markers including CRP, D-dimer every 48 hours. Will avoid Actemra given possibility of infection and bacterial superinfection D-dimer elevated. CTA negative for pulmonary embolism. For now we will start patient on full dose anticoagulation given high oxygen requirement, immobility. Continue with increased dose of Eliquis at 5 mg twice daily. Will monitor for anemia or blood loss. Sputum cultures so far normal max. Urine Legionella, bacterial antigen negative, MRSA swab negative, procalcitonin negative. For now continue with Bactrim for PCP prophylaxis. Continue Levaquin to finish a 7-day course. Last dose on 05/10. Continue Zosyn to finish a 7-day course. Last dose on 05/09. Vancomycin stopped yesterday after 5 days. Given hypoxia will try to keep patient as negative as possible. Strict input output charting, daily weights. P.o. 40 mg oral Lasix. Target 1 L negative in next 24 hours. Status: Acute (2) COVID-19: Severe COVID-19, as above. Status: Acute (3) Pulmonary interstitial fibrosis: Status: Acute (4) Tachycardia: Resolved. Likely triggered by hypoxia. Ectopic rhythm on EKG. Continue diltiazem. Monitor on telemetry. Status: Acute Plan Appreciate pulmonology recommendations. CODE STATUS: Discussed in detail with the patient. He is okay with chest compressions but does not want intubation. Limited resuscitation. Cardiac diet. Eliquis will have a DVT prophylaxis. Protonix for PUD prophylaxis. Discharge planning: Given profound hypoxia, possible IPF exacerbation patient would need long-term pulmonary rehab. Patient would benefit from possibly select/LTAC. Patient is agreeable. Concurred with pulmonology. Case management alerted. Attestations Medical Necessity Statement*: Requires further hospitalization for acute on chronic hypoxic respiratory failure second to IPF exacerbation in setting of COVID-19 pneumonia Time Spent in Patient Care: Greater than 35 minutes Coding Level of Care Code Acute Biodiesel Engine Specialist for [facility] Diagnoses Acute and chronic respiratory failure J96.20 COVID-19 U07.1 Pulmonary interstitial fibrosis J84.10 Tachycardia R00.0
[2021-05-08 17:04] LABS: Glucose Point of Care 261 mg/dL (70-110)
[2021-05-08] MEDS: LORazepam 1 mg Tablet PO (21:36)
[2021-05-08] MEDS: cyclobenzaprine 10 mg Tablet PO (21:36)
[2021-05-09] VITALS (14 sets, daily range): BP systolic 98–124; BP diastolic 62–81; PULSE 90–109; RESP 16–20; TEMP 36.4–36.7; O2SAT 89–101
[2021-05-09] MEDS: dexamethasone 10 mg/mL INJ 6 MG IVP (00:34)
[2021-05-09 00:42] LABS: Glucose Point of Care 195 mg/dL (70-110)
[2021-05-09] MEDS: ipratropium-albuterol 3 mL Neb INHALATION ×5 (03:43→20:03)
[2021-05-09] MEDS: piperacillin-tazobactam 3.375 GM in sodium chloride 0.9% (plus) 50 ML IV ×2 (04:47→12:17)
[2021-05-09 05:49] LABS: Basophils % 0.2 %; Hemoglobin 11.8 g/dL (11.7-16.6); Lymphocytes # 0.8 10^3/uL (0.8-4.8); Lymphocytes % 7.4 %; Mean Corpuscular HGB Conc 32.8 g/dL (30.0-36.0); Mean Corpuscular Hemoglobin 25.8 pg (28.0-34.0); Mean Corpuscular Volume 78.8 fl (80-94); Mean Platelet Volume 8.9 fL (7.4-10.4); Monocytes # 0.3 10^3/uL (0.2-0.9); Monocytes % 2.7 %; Neutrophils # 9.03 10^3/uL (1.8-7.7); Neutrophils % 87.3 %; Nucleated Red Blood Cells % 0 %; Platelet Count 273 10^3/cmm (130-400); Red Blood Count 4.57 10^6/uL (4.1-5.3); Red Cell Distribution Width 15.8 % (12.1-15.1); White Blood Count 10.3 10^3/uL (4.0-10.0)
[2021-05-09 06:07] LABS: Alanine Aminotransferase 25 U/L (0-41); Albumin Level 3.1 g/dL (3.5-5.2); Alkaline Phosphatase 68 IU/L (40-130); Anion Gap 16.4 (5-19); Aspartate Amino Transferase 12 U/L (0-40); Blood Urea Nitrogen 32 mg/dL (8-23); Calcium 8.4 mg/dL (8.5-10.5); Carbon Dioxide 24 mmol/L (22-29); Chloride 96 mmol/L (98-107); Globulin 2.2 g/dL (1.3-4.6); Glomerular Filtration Rate 113.9 mL/min (90-130); Glucose 183 mg/dL (65-115); Osmolality Calculated 286 mOsm/kg (285-295); Potassium 4.4 mmol/L (3.5-5.1); Sodium 132 mmol/L (136-145); Total Bilirubin 0.3 mg/dL (0.15-1.2); Total Protein 5.3 g/dL (6.6-8.7)
[2021-05-09 07:32] LABS: Glucose Point of Care 137 mg/dL (70-110)
[2021-05-09] MEDS: budesonide 0.5 mg/2 mL Neb INHALATION ×2 (08:07→20:03)
--- NOTE | 2021-05-09 08:20 | PC.RESP ---
RT Shift Note Frequent safety and respiratory rounds continue. Orders completed as indicated. Patient monitored pre and post treatments throughout shift. Patient [Did.] tolerate treatments appropriately. Condition [IDidNotChange]. Patient and/or tax compliance representative educated on respiratory treatment and medications. Patient and/or tax compliance representative [verbalized understandin]. Will continue to monitor patient progress.
[2021-05-09] MEDS: apixaban 5 mg Tablet PO ×2 (09:33→16:46)
[2021-05-09] MEDS: loratadine 10 mg Tablet PO (09:34)
[2021-05-09] MEDS: sennosides-docusate Tablet 1 TAB PO (09:34)
[2021-05-09] MEDS: clopidogrel 75 mg Tablet PO (09:34)
[2021-05-09] MEDS: atorvastatin 40 mg Tablet 20 MG PO (09:34)
[2021-05-09] MEDS: escitalopram 10 mg Tablet 20 MG PO (09:35)
[2021-05-09] MEDS: dilTIAZem ER (24HR) 240 mg Capsule PO (09:35)
[2021-05-09] MEDS: fluticasone nasal spray 16gm Btl 2 SPRAY INTRANASAL (09:40)
--- NOTE | 2021-05-09 11:03 | PC.NURSE ---
patient requesting something for heartburn. Dr Jackson notified.
[2021-05-09 12:29] LABS: Glucose Point of Care 162 mg/dL (70-110)
[2021-05-09] MEDS: insulin lispro 100 unit/1 mL SUBCUT ×3 (13:35→22:02)
[2021-05-09] MEDS: dexamethasone 4 mg/mL INJ IVP (13:36)
[2021-05-09] MEDS: sulfamethoxazole-trimeth DS 160-800 mg Tablet 1 TAB PO (13:36)
--- NOTE | 2021-05-09 14:07 | PC.NURSE ---
rcvd order from Dr Jackson for PO Protonix for patient's complaint of heartburn
[2021-05-09] MEDS: pantoprazole DR 40 mg Tablet PO (14:18)
[2021-05-09] MEDS: levofloxacin-dextrose 5 % 750 MG/150 ML PREMIX 100 MG IV (14:19)
--- NOTE | 2021-05-09 14:38 | P.PN_ITS ---
Subjective Subjective: Interval history: No acute events overnight. Patient states he is feeling better. Took a shower today. Has been on 5 L nasal cannula saturating 96%. Less exertional dyspnea today. Has remained hemodynamically stable and afebrile. Vitals/I&O/Wt Last Vital Signs Temp 97.5 F L 05/09/21 12:00 Pulse 107 H 05/09/21 12:00 Resp 18 05/09/21 12:00 BP 105/77 05/09/21 12:00 Pulse Ox 96 05/09/21 12:00 05/08/21 05/09/21 05/09/21 22:59 06:59 14:59 Intake Total 440 / 1210 290 / 290 Output Total 1150 / 1150 600 / 600 Balance -710 / 60 -310 / -310 Physical Exam Const: COMMON NORMALS: no acute distress and patient oriented x3 GENERAL APPEARANCE: cooperative and comfortable OTHER: Become tachypneic and tachycardic on minimal exertion HENMT: COMMON NORMALS: oropharynx normal Neck/C-Spine: COMMON NORMALS: no JVD Resp: COMMON NORMALS: normal respiratory effort EFFORT & INSPECTION: Yes able to speak in complete sentences AUSCULTATION: crackles (fine) Cardio: COMMON NORMALS: no JVD, regular rhythm, S1 normal heart sound present, S2 normal heart sound present and No murmurs present (Cardio) RHYTHM: regular rhythm HEART SOUNDS: S1 normal heart sound present and S2 normal heart sound present GI: COMMON NORMALS: Normal to inspection, nondistended, normoactive bowel s ounds present, Soft to palpation and non-tender PALPATION: Yes Soft to pa lpation Extremity: COMMON NORMALS: no joint enlargement and no pedal edema Neuro: COMMON NORMALS: patient oriented x3 and moves all extremities Skin: COMMON NORMALS: no rashes or lesions noted GENERAL SKIN EXAM: no rashes or lesions noted Data : 05/09/21 05:12 05/09/21 05:12 Micro: Microbiology 05/02/21 12:36 Blood Culture - Final Blood Corynebacterium species 05/06/21 12:20 Gram Stain - Final Sputum - Expectorated Sputum Sputum Culture - Final A&P Assessment and plan (1) Acute and chronic respiratory failure: Multiple etiology. Most likely a combination of IPF exacerbation in setting of COVID-19 pneumonia and possible superimposed bacterial pneumonia. Hypoxia secondary to COVID-19 pneumonia: Moderate to severe disease. Oxygen supplementation keeping saturation over 86-88 %. We will try to wean off heated high flow and placed on oxygen pendent. Wean dexamethasone to 4 mg IV every 12 hourly. Continue with barcitinib. 05/28 today. Has finished for 5 days remdesivir course. Vitamin C, zinc. DuoNebs every 4 hour, budesonide twice daily Pulmonary toilet with incentive spirometry flutter valve. We will monitor inflammatory markers including CRP, D-dimer every 48 hours. Will avoid Actemra given possibility of infection and bacterial superinfection D-dimer elevated. CTA negative for pulmonary embolism. For now we will start patient on full dose anticoagulation given high oxygen requirement, immobility. Continue with increased dose of Eliquis at 5 mg twice daily. Will monitor for anemia or blood loss. Sputum cultures so far normal max. Urine Legionella, bacterial antigen negative, MRSA swab negative, procalcitonin negative. For now continue with Bactrim for PCP prophylaxis. Continue Levaquin to finish a 7-day course. Last dose on 05/10. Continue Zosyn to finish a 7-day course. Last dose on 05/09. Vancomycin stopped yesterday after 5 days. Given hypoxia will try to keep patient as negative as possible. Strict input output charting, daily weights. P.o. 40 mg oral Lasix. Target 1 L negative in next 24 hours. Status: Acute (2) COVID-19: Severe COVID-19, as above. Status: Acute (3) Pulmonary interstitial fibrosis: Status: Acute (4) Tachycardia: Resolved. Likely triggered by hypoxia. Ectopic rhythm on EKG. Continue diltiazem. Monitor on telemetry. Status: Acute Plan Appreciate pulmonology recommendations. CODE STATUS: Discussed in detail with the patient. He is okay with chest compressions but does not want intubation. Limited resuscitation. Cardiac diet. Eliquis will have a DVT prophylaxis. Protonix for PUD prophylaxis. Discharge planning: Given profound hypoxia, possible IPF exacerbation patient would need long-term pulmonary rehab. Patient would benefit from possibly [facility]/LTAC. Patient is agreeable. Concurred with pulmonology. Case management alerted. 05/09: Plan was to discharge to LTAC/[facility]. Patient is agreeable. Select still reviewing chart. Patient continues to improve. If patient improves further continuing plan to discharge home with slow steroid taper and advised to follow- up with pulmonology as an outpatient. Plan for day: Continue to wean down oxygen keeping saturation over 88%. Con tinue with inhalation treatment. Decrease dexamethasone to 4 mg IV every 12 hourly. Last day of Zosyn today. Continue Levaquin for 1 more day to finish a 7-day course. Continue with baricitinib. Hold off on Lasix today. Patient euvolemic. Attestations Medical Necessity Statement*: Requires further hospitalization for acute on chronic hypoxic respiratory failure secondary to IPF exacerbation in setting of COVID-19 pneumonia. Time Spent in Patient Care: Greater than 35 minutes Coding Level of Care Code Acute Central Scheduler for [facility] Diagnoses Acute and chronic respiratory failure J96.20 COVID-19 U07.1 Pulmonary interstitial fibrosis J84.10 Tachycardia R00.0
--- NOTE | 2021-05-09 15:23 | PM.PN ---
Subjective Subjective: Interval history: No events overnight Subjective improvement in his dyspnea Down to 5 L nasal cannula saturating 96% Other labs and imaging reviewed Medications: Reviewed: Yes Vitals/I&O/Wt Last Vital Signs Temp 97.5 F L 05/09/21 12:00 Pulse 96 05/09/21 15:00 Resp 20 H 05/09/21 15:00 BP 105/77 05/09/21 12:00 Pulse Ox 97 05/09/21 15:00 05/09/21 05/09/21 05/09/21 06:59 14:59 22:59 Intake Total 290 / 290 Output Total 600 / 600 Balance -310 / -310 Physical Exam Narrative: EXAM NARRATIVE: General: alert, NAD HEENT: conj clear, EOMI, PERRL, mmm, Neck: supple, no meningismus Heme: no cervical LAP Pulmonary: Bilateral fine crepitations, predominantly on bilateral lower lobes Cardiovascular: rrr, nl s1s2, no mrg Abdomen: soft, nt, nd, no r/g, bs+ Extremities: pulses +, no edema, no c/c : no CVA tenderness Skin: intact, no rash MSK: no back or neck pain Neurologic: grossly intact Data : 05/09/21 05:12 05/09/21 05:12 Other Labs: Radiology Impressions Chest CT 05/02/21 18:59 IMPRESSION: 1. Status post right upper lobectomy. 2. 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 3. Peripheral acinar emphysema. 4. No appreciable significant overall change since 04/18/2021. 5. Coronary artery disease. Chest X-Ray 05/07/21 11:40 IMPRESSION: 1. Coarse bilateral perihilar and lower lobe pulmonary infiltrates not significantly changed since May 02, 2021. 2. Stable cardiomegaly. 3. Shallow inspiration. Laboratory Results WBC 10.3 10^3/uL (4.0-10.0) H 05/09/21 05:12 RBC 4.57 10^6/uL (4.1-5.3) 05/09/21 05:12 Hgb 11.8 g/dL (11.7-16.6) 05/09/21 05:12 Hct 36.0 % (42.0-52.0) L 05/09/21 05:12 MCV 78.8 fl (80-94) L 05/09/21 05:12 MCH 25.8 pg (28.0-34.0) L 05/09/21 05:12 MCHC 32.8 g/dL (30.0-36.0) 05/09/21 05:12 RDW 15.8 % (12.1-15.1) H 05/09/21 05:12 Plt Count 273 10^3/cmm (130-400) 05/09/21 05:12 MPV 8.9 fL (7.4-10.4) 05/09/21 05:12 Neut % (Auto) 87.3 % 05/09/21 05:12 Lymph % (Auto) 7.4 % 05/09/21 05:12 [place] % (Auto) 2.7 % 05/09/21 05:12 Eos % (Auto) 0.0 % 05/09/21 05:12 Baso % (Auto) 0.2 % 05/09/21 05:12 Neut # (Auto) 9.03 10^3/uL (1.8-7.7) H 05/09/21 05:12 Lymph # (Auto) 0.8 10^3/uL (0.8-4.8) 05/09/21 05:12 [place] # (Auto) 0.3 10^3/uL (0.2-0.9) 05/09/21 05:12 Eos # (Auto) 0.0 10^3/uL (0.0-0.8) 05/09/21 05:12 Baso # (Auto) 0.0 10^3/uL (0.0-0.1) 05/09/21 05:12 Nucleated RBC % (auto) 0 % 05/09/21 05:12 Nucleated RBCs # 0.0 /100WBC 05/09/21 05:12 D-Dimer 0.41 ug/mIFEU (0-0.59) 05/07/21 05:36 Specimen Type Arterial 05/07/21 12:38 Sample Site Radial, right 05/07/21 12:38 ABG pH 7.46 (7.35-7.45) H 05/07/21 12:38 ABG pCO2 39.0 mmHg (35-45) 05/07/21 12:38 ABG pO2 65.5 mmHg (80.0-100.0) L 05/07/21 12:38 ABG HCO3 27.4 mmol/L (22-26) H 05/07/21 12:38 ABG O2 Saturation 92.2 05/07/21 12:38 ABG Base Excess 3.4 mmol/L (-2.0-2.0) H 05/07/21 12:38 [place] Test Pos 05/07/21 12:38 A-a O2 Gradient 4.5 mmHg (5-10) L 05/07/21 12:38 Hematocrit 40.3 % (42-52) L 05/07/21 12:38 Hgb O2 Saturation 91.5 % (95-100) L 05/07/21 12:38 Carboxyhemoglobin < 0.0 %THgb (0.4-20.1) L 05/07/21 12:38 Methemoglobin 0.9 % (0.4-1.5) 05/07/21 12:38 Total Hemoglobin 13.1 g/dL (14-18) L 05/07/21 12:38 Sodium 135.0 mmol/L (131-143) 05/07/21 12:38 Potassium 3.5 mmol/L (3.5-5.0) 05/07/21 12:38 Glucose 175.0 mg/dL (70-115) H 05/07/21 12:38 Ionized Calcium 1.2 mmol/L (1.1-1.4) 05/07/21 12:38 O2 Delivery Device Nc 05/07/21 12:38 O2 Liters/Min 7.0 % 05/07/21 12:38 Mold Construction Supervisor ID Ed 05/07/21 12:38 Sodium 132 mmol/L (136-145) L 05/09/21 05:12 Potassium 4.4 mmol/L (3.5-5.1) 05/09/21 05:12 Chloride 96 mmol/L (98-107) L 05/09/21 05:12 Carbon Dioxide 24 mmol/L (22-29) 05/09/21 05:12 Anion Gap 16.4 (5-19) 05/09/21 05:12 BUN 32 mg/dL (8-23) H 05/09/21 05:12 Creatinine 0.7 mg/dL (0.7-1.2) 05/09/21 05:12 GFR Calculation 113.9 mL/min (90-130) 05/09/21 05:12 Glucose 183 mg/dL (65-115) H 05/09/21 05:12 POC Glucose 162 mg/dL (70-110) H 05/09/21 11:59 Estimat Average Glucose 146 05/08/21 05:38 Hemoglobin A1c 6.7 % (4.0-6.0) H 05/08/21 05:38 Calculated Osmolality 286 mOsm/kg (285-295) 05/09/21 05:12 Lactic Acid 6.3 mmol/L (0.5-2.2) H* 05/02/21 10:46 Lactic Acid (Sepsis) 2.6 mmol/L (0.5-2.2) H 05/02/21 13:34 Calcium 8.4 mg/dL (8.5-10.5) L 05/09/21 05:12 Iron 59 ug/dL (59-158) 05/07/21 05:36 TIBC 288 mcg/dl 05/07/21 05:36 % Saturation 20.4 % (20-50) 05/07/21 05:36 Unsat Iron Binding 229 ug/dL (112-347) 05/07/21 05:36 Total Bilirubin 0.3 mg/dL (0.15-1.2) 05/09/21 05:12 AST 12 U/L (0-40) 05/09/21 05:12 ALT 25 U/L (0-41) 05/09/21 05:12 Alkaline Phosphatase 68 IU/L (40-130) 05/09/21 05:12 C-Reactive Protein 6.8 mg/L (0.0-4.9) H 05/08/21 05:38 Total Protein 5.3 g/dL (6.6-8.7) L 05/09/21 05:12 Albumin 3.1 g/dL (3.5-5.2) L 05/09/21 05:12 Globulin 2.2 g/dL (1.3-4.6) 05/09/21 05:12 Procalcitonin 0.08 ng/mL (0-0.5) 05/07/21 05:36 Vancomycin Trough 11.4 ug/mL (10-15) 05/04/21 06:39 Coronavirus 229E (PCR) Not detected (NOT DETECT) 05/02/21 12:55 SARS-CoV-2 (PCR) Detected (NOT DETECT) A 05/02/21 12:55 Micro: Microbiology 05/02/21 12:36 Blood Culture - Final Blood Corynebacterium species 05/06/21 12:20 Gram Stain - Final Sputum - Expectorated Sputum Sputum Culture - Final A&P Assessment and plan (1) Acute and chronic respiratory failure with hypoxia: Status: Chronic (2) COVID-19: Status: Acute (3) Pulmonary interstitial fibrosis: Status: Acute (4) Obstructive sleep apnea: Status: Acute (5) COPD (chronic obstructive pulmonary disease): Status: Chronic Qualifiers: COPD type: emphysema Emphysema type: unspecified Qualified Code(s): J43.9 - Emphysema, unspecified (6) Pulmonary embolism: Status: Acute Qualifiers: Acute cor pulmonale presence: unspecified Chronicity: chronic Pulmonary embolism type: other Qualified Code(s): I27.82 - Chronic pulmonary embolism Plan #Acute on chronic respiratory failure with hypoxia in patient with known combined pulmonary fibrosis emphysema syndrome-on chronic steroids and Trelegy #Recently diagnosed with COVID-19 pneumonia 05/02/2021 #History of obstructive sleep apnea-on BiPAP #History of multiple segmental and subsegmental PE in the right side-on Eliquis #History of PCP pneumonia-previously treated with atovaquone and currently on Bactrim prophylaxis #CAD s/p stent -Baseline requires 4 L on oxygen pendant at home -Currently subjective improvement in dyspnea and down to 5 L nasal cannula saturating 96% -CT chest 05/02/2021: No appreciable change when compared to CT 04/18/2021. Chronic interstitial pattern noted -On steroids-recommended to give a tapering dose of prednisone 60 mg x 7 days followed by 30 mg x 7 days and 15 mg x 7 days and will follow-up with Dr. Mayfield as outpatient -Completed 5 doses of remdesivir and receiving baricitinib now -MRSA nares negative, bacterial antigens negative, Legionella urine antigen negative -Blood cultures 1/4 bottles positive for corynebacterium -Currently covered with Levaquin/Zosyn-to complete 7 days tomorrow-discontinued vancomycin as MRSA nares negative -On Plavix, Lipitor for CAD and Eliquis for history of PE -On DuoNeb nebulization every 6 hours scheduled and Pulmicort 0.5 mg every 12 hours -Most recent PFTs in December 2020 showed FEV1 2.16 L or 61% predicted and FVC 2.89 L 63% predicted and ratio 75%. TLC 64% and DLCO 43%. Compared to May 2019: FEV1 2.49 L 70% predicted, FVC 3.46 L 75% predicted, ratio 72%, TLC 70% and DLCO 55% -Patient is on waiting list for lung transplant evaluation at [place] for his underlying combined pulmonary fibrosis and emphysema -he can follow-up as outpatient -Overall appears to be at baseline respiratory rascon and can be discharged home and to rejoin pulmonary rehabilitation as outpatient -Recommended to place patient on his oxygen pendant and continue BiPAP at nighttime -DNI Recommendations conveyed to hospitalist taking care of the patient Attestations Medical Necessity Statement*: defer to hospitalist Time Spent in Patient Care: time spent 45 min Coding Level of Care Code Established Pt Acute Glove Parts Cutter for g Fwd Patient Type Established History Comprehensive Exam Comprehensive Medical Decision Making Moderate Complexity Diagnoses Acute and chronic respiratory failure with hypoxia J96.21 COVID-19 U07.1 Pulmonary interstitial fibrosis J84.10 Obstructive sleep apnea G47.33 COPD (chronic obstructive pulmonary disease) J43.9 COPD type: emphysema Emphysema type: unspecified Pulmonary embolism I27.82 Acute cor pulmonale presence: unspecified Chronicity: chronic Pulmonary embolism type: other Time Spent (min) 45
[2021-05-09 17:20] LABS: Glucose Point of Care 174 mg/dL (70-110)
[2021-05-09] MEDS: LORazepam 1 mg Tablet PO (22:02)
[2021-05-09] MEDS: cyclobenzaprine 10 mg Tablet PO (22:02)
[2021-05-10] VITALS: BP 118/70; PULSE 90; RESP 17; TEMP 36.6; O2SAT 94
[2021-05-10] MEDS: dexamethasone 4 mg/mL INJ IVP ×2 (00:12→11:30)
[2021-05-10 04:00] VITALS: BP 126/74; PULSE 88; RESP 17; TEMP 36.5; O2SAT 93
[2021-05-10 05:40] VITALS: PULSE 88
[2021-05-10 06:13] LABS: Basophils % 0.1 %; Hematocrit 34.5 % (42.0-52.0); Hemoglobin 11.3 g/dL (11.7-16.6); Lymphocytes # 0.7 10^3/uL (0.8-4.8); Lymphocytes % 7.6 %; Mean Corpuscular HGB Conc 32.8 g/dL (30.0-36.0); Mean Corpuscular Hemoglobin 25.8 pg (28.0-34.0); Mean Corpuscular Volume 78.8 fl (80-94); Mean Platelet Volume 8.6 fL (7.4-10.4); Monocytes # 0.4 10^3/uL (0.2-0.9); Monocytes % 4.5 %; Neutrophils # 7.84 10^3/uL (1.8-7.7); Neutrophils % 83.5 %; Nucleated Red Blood Cells % 0 %; Platelet Count 272 10^3/cmm (130-400); Red Blood Count 4.38 10^6/uL (4.1-5.3); Red Cell Distribution Width 15.9 % (12.1-15.1); White Blood Count 9.4 10^3/uL (4.0-10.0)
[2021-05-10 06:28] LABS: Glucose Point of Care 157 mg/dL (70-110)
[2021-05-10 06:56] LABS: C Reactive Protein 1.9 mg/L (0.0-4.9)
[2021-05-10 06:57] LABS: Alanine Aminotransferase 25 U/L (0-41); Alkaline Phosphatase 63 IU/L (40-130); Anion Gap 18.8 (5-19); Aspartate Amino Transferase 13 U/L (0-40); Blood Urea Nitrogen 25 mg/dL (8-23); Carbon Dioxide 22 mmol/L (22-29); Chloride 96 mmol/L (98-107); Globulin 2.3 g/dL (1.3-4.6); Glomerular Filtration Rate 136.1 mL/min (90-130); Glucose 153 mg/dL (65-115); Osmolality Calculated 281 mOsm/kg (285-295); Potassium 4.8 mmol/L (3.5-5.1); Sodium 132 mmol/L (136-145); Total Bilirubin 0.3 mg/dL (0.15-1.2); Total Protein 5.3 g/dL (6.6-8.7)
[2021-05-10 07:31] VITALS: BP 94/76; PULSE 93; RESP 16; TEMP 36.6; O2SAT 97
[2021-05-10] MEDS: sennosides-docusate Tablet 1 TAB PO (07:55)
[2021-05-10] MEDS: escitalopram 10 mg Tablet 20 MG PO (07:55)
[2021-05-10] MEDS: budesonide 0.5 mg/2 mL Neb INHALATION (07:55)
[2021-05-10] MEDS: dilTIAZem ER (24HR) 240 mg Capsule PO (07:55)
[2021-05-10] MEDS: atorvastatin 40 mg Tablet 20 MG PO (07:55)
[2021-05-10] MEDS: ipratropium-albuterol 3 mL Neb INHALATION ×2 (07:55→12:10)
[2021-05-10] MEDS: loratadine 10 mg Tablet PO (07:56)
[2021-05-10] MEDS: pantoprazole DR 40 mg Tablet PO (07:56)
[2021-05-10] MEDS: clopidogrel 75 mg Tablet PO (07:56)
[2021-05-10] MEDS: insulin lispro 100 unit/1 mL SUBCUT (07:56)
[2021-05-10] MEDS: apixaban 5 mg Tablet PO (07:56)
[2021-05-10] MEDS: fluticasone nasal spray 16gm Btl 2 SPRAY INTRANASAL (08:05)
--- NOTE | 2021-05-10 10:29 | PC.NURSE ---
Per Dr Jackson, he would like SS to see patient about HH on discharge. board writer notified JADIEL Powell
[2021-05-10] MEDS: LORazepam 1 mg Tablet PO (11:30)
[2021-05-10 11:51] LABS: Glucose Point of Care 128 mg/dL (70-110)
--- NOTE | 2021-05-10 12:04 | P.DS_ITS ---
Discharge Providers Date of Admission: 05/02/21 13:52 Date of Discharge: May 10, 2021 Attending Provider at Admission: Gonzalo Cobian Attending Provider at Discharge: Alfonso Jackson MD Consults: Pulmonology: Dr. Thrasher Primary Care Provider: Daniel Nogueira DO Diagnoses at Discharge Discharge Diagnosis (1) Acute and chronic respiratory failure with hypoxia: Status: Chronic (2) COVID-19: Status: Acute (3) Pulmonary interstitial fibrosis: Status: Acute (4) Obstructive sleep apnea: Status: Acute (5) COPD (chronic obstructive pulmonary disease): Status: Chronic Qualifiers: COPD type: emphysema Emphysema type: unspecified Qualified Code(s): J43.9 - Emphysema, unspecified (6) Pulmonary embolism: Status: Acute Qualifiers: Acute cor pulmonale presence: unspecified Chronicity: chronic Pulmonary embolism type: other Qualified Code(s): I27.82 - Chronic pulmonary embolism Reason for Visit Reason for Visit: [facility] Hospital Course Hospital Course Gregg Babcock is a 65 year old male with past medical history 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 Patient follows up with Dr. Mayfield pulmonology clinic-currently on pirfenidone for his pulmonary fibrosis and also attends pulmonary rehabilitation.? Most recently he had an admission in April 1 week for worsening oxygen requirement and after passing out at home.? His prednisone has been increased to 60 mg daily and was discharged on 04/20/2021 with tapering dose.? He also takes Bactrim for PCP prophylaxis and Breztri 2 puffs twice daily for his COPD.? Has significant history of smoking 2 pack/day for 40 years and quit using tobacco in 2019.? Post discharge she will followed up with Dr. Mayfield and was recommended to continue tapering his p.o. prednisone follow-up in 1 month. On 05/02/2021-patient came to emergency room for worsening shortness of breath and spiking fevers.? Imaging showed findings consistent with chronic interstitial pneumonitis with no significant change.? His COVID-19 testing came back positive and patient was admitted for impending respiratory failure.? He was started on treatment for COVID-19 with IV remdesivir, dexamethasone and inhalation treatment along with aggressive incentive spirometry and flutter valve. He was started on a higher dose of dexamethasone given history of IPF. He was also covered with IV antibiotics for high suspicion of superimposed bacterial pneumonia. Sputum culture and blood culture remain negative. Patient received treatment with IV antibiotic for 7 days. His oxygenation continues to improve and has been on at baseline oxygen supplementation which he is at home for last 48 to 60 hours both at rest and on ambulation. CTA was done which was negative for pulmonary embolism. Pulmonology was consulted. He has been discharged in hemodynamically stable condition on baseline oxygen requirement. Patient would benefit from aggressive pulmonary rehab for at least 2 to 3 weeks due to deconditioning from creg-kw-hour hospitalization. Multiple goals of care discussion was done with the patient and he change his CODE STATUS to limited resuscitation with initiation of CPR only and no intubation. He has been discharged on slow steroid taper as an outpatient and will follow up with his outpatient spiritual minister with Dr. Dr. Mayfield at the earliest appointment. Physical Exam Const: COMMON NORMALS: no acute distress and patient oriented x3 GENERAL APPEARANCE: cooperative and comfortable HENMT: COMMON NORMALS: oropharynx normal Neck/C-Spine: COMMON NORMALS: no JVD Resp: COMMON NORMALS: normal respiratory effort EFFORT & INSPECTION: Yes able to speak in complete sentences AUSCULTATION: crackles (fine) Cardio: COMMON NORMALS: no JVD, regular rhythm, S1 normal heart sound present, S2 normal heart sound present and No murmurs present (Cardio) RHYTHM: regular rhythm HEART SOUNDS: S1 normal heart sound present and S2 normal heart sound present GI: COMMON NORMALS: Normal to inspection, nondistended, normoactive bowel sounds present, Soft to palpation and non-tender PALPATION: Yes Soft to palpation Extremity: COMMON NORMALS: no joint enlargement and no pedal edema Neuro: COMMON NORMALS: patient oriented x3 and moves all extremities Skin: COMMON NORMALS: no rashes or lesions noted GENERAL SKIN EXAM: no rashes or lesions noted Discharge Data Studies Completed and Pending Completed Studies During Hospitalization Category Date Time Status CT chest wo con [id number] Routine Cat Scan 05/02/21 18:59 Completed XR chest 1V portable [id number] Routine Exams 05/07/21 11:40 Completed XR chest 1V portable [id number] Stat Exams 05/02/21 10:44 Completed Radiology Impressions Chest CT 05/02/21 18:59 IMPRESSION: 1. Status post right upper lobectomy. 2. 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 3. Peripheral acinar emphysema. 4. No appreciable significant overall change since 04/18/2021. 5. Coronary artery disease. Chest X-Ray 05/07/21 11:40 IMPRESSION: 1. Coarse bilateral perihilar and lower lobe pulmonary infiltrates not significantly changed since May 02, 2021. 2. Stable cardiomegaly. 3. Shallow inspiration. Microbiology 05/02/21 12:36 Blood Blood Culture - Final Corynebacterium species?contaminant 05/06/21 12:20 Sputum - Expectorated Sputum Gram Stain - Final 05/06/21 12:20 Sputum - Expectorated Sputum Sputum Culture - Final 05/02/21 12:38 Blood Blood Culture - Final NO GROWTH AFTER 5 DAYS 05/04/21 05:30 Nose MRSA Culture - Final 05/03/21 19:25 Urine,Voided Legionella Urinary Antigen - Final 05/03/21 19:25 Urine,Voided Bacterial Antigens - Final Laboratory Results WBC 9.4 10^3/uL (4.0-10.0) 05/10/21 05:38 RBC 4.38 10^6/uL (4.1-5.3) 05/10/21 05:38 Hgb 11.3 g/dL (11.7-16.6) L 05/10/21 05:38 Hct 34.5 % (42.0-52.0) L 05/10/21 05:38 MCV 78.8 fl (80-94) L 05/10/21 05:38 MCH 25.8 pg (28.0-34.0) L 05/10/21 05:38 MCHC 32.8 g/dL (30.0-36.0) 05/10/21 05:38 RDW 15.9 % (12.1-15.1) H 05/10/21 05:38 Plt Count 272 10^3/cmm (130-400) 05/10/21 05:38 MPV 8.6 fL (7.4-10.4) 05/10/21 05:38 Neut % (Auto) 83.5 % 05/10/21 05:38 Lymph % (Auto) 7.6 % 05/10/21 05:38 [place] % (Auto) 4.5 % 05/10/21 05:38 Eos % (Auto) 0.0 % 05/10/21 05:38 Baso % (Auto) 0.1 % 05/10/21 05:38 Neut # (Auto) 7.84 10^3/uL (1.8-7.7) H 05/10/21 05:38 Lymph # (Auto) 0.7 10^3/uL (0.8-4.8) L 05/10/21 05:38 [place] # (Auto) 0.4 10^3/uL (0.2-0.9) 05/10/21 05:38 Eos # (Auto) 0.0 10^3/uL (0.0-0.8) 05/10/21 05:38 Baso # (Auto) 0.0 10^3/uL (0.0-0.1) 05/10/21 05:38 Nucleated RBC % (auto) 0 % 05/10/21 05:38 Nucleated RBCs # 0.0 /100WBC 05/10/21 05:38 D-Dimer 0.41 ug/mIFEU (0-0.59) 05/07/21 05:36 Specimen Type Arterial 05/07/21 12:38 Sample Site Radial, right 05/07/21 12:38 ABG pH 7.46 (7.35-7.45) H 05/07/21 12:38 ABG pCO2 39.0 mmHg (35-45) 05/07/21 12:38 ABG pO2 65.5 mmHg (80.0-100.0) L 05/07/21 12:38 ABG HCO3 27.4 mmol/L (22-26) H 05/07/21 12:38 ABG O2 Saturation 92.2 05/07/21 12:38 ABG Base Excess 3.4 mmol/L (-2.0-2.0) H 05/07/21 12:38 Erickson Test Pos 05/07/21 12:38 A-a O2 Gradient 4.5 mmHg (5-10) L 05/07/21 12:38 Hematocrit 40.3 % (42-52) L 05/07/21 12:38 Hgb O2 Saturation 91.5 % (95-100) L 05/07/21 12:38 Carboxyhemoglobin < 0.0 %THgb (0.4-20.1) L 05/07/21 12:38 Methemoglobin 0.9 % (0.4-1.5) 05/07/21 12:38 Total Hemoglobin 13.1 g/dL (14-18) L 05/07/21 12:38 Sodium 135.0 mmol/L (131-143) 05/07/21 12:38 Potassium 3.5 mmol/L (3.5-5.0) 05/07/21 12:38 Glucose 175.0 mg/dL (70-115) H 05/07/21 12:38 Ionized Calcium 1.2 mmol/L (1.1-1.4) 05/07/21 12:38 O2 Delivery Device Nc 05/07/21 12:38 O2 Liters/Min 7.0 % 05/07/21 12:38 6Th Grade Teacher ID Ed 05/07/21 12:38 Sodium 132 mmol/L (136-145) L 05/10/21 05:48 Potassium 4.8 mmol/L (3.5-5.1) 05/10/21 05:48 Chloride 96 mmol/L (98-107) L 05/10/21 05:48 Carbon Dioxide 22 mmol/L (22-29) 05/10/21 05:48 Anion Gap 18.8 (5-19) 05/10/21 05:48 BUN 25 mg/dL (8-23) H 05/10/21 05:48 Creatinine 0.6 mg/dL (0.7-1.2) L 05/10/21 05:48 GFR Calculation 136.1 mL/min (90-130) H 05/10/21 05:48 Glucose 153 mg/dL (65-115) H 05/10/21 05:48 POC Glucose 128 mg/dL (70-110) H 05/10/21 11:03 Estimat Average Glucose 146 05/08/21 05:38 Hemoglobin A1c 6.7 % (4.0-6.0) H 05/08/21 05:38 Calculated Osmolality 281 mOsm/kg (285-295) L 05/10/21 05:48 Lactic Acid 6.3 mmol/L (0.5-2.2) H* 05/02/21 10:46 Lactic Acid (Sepsis) 2.6 mmol/L (0.5-2.2) H 05/02/21 13:34 Calcium 9.0 mg/dL (8.5-10.5) 05/10/21 05:48 Iron 59 ug/dL (59-158) 05/07/21 05:36 TIBC 288 mcg/dl 05/07/21 05:36 % Saturation 20.4 % (20-50) 05/07/21 05:36 Unsat Iron Binding 229 ug/dL (112-347) 05/07/21 05:36 Total Bilirubin 0.3 mg/dL (0.15-1.2) 05/10/21 05:48 AST 13 U/L (0-40) 05/10/21 05:48 ALT 25 U/L (0-41) 05/10/21 05:48 Alkaline Phosphatase 63 IU/L (40-130) 05/10/21 05:48 C-Reactive Protein 1.9 mg/L (0.0-4.9) 05/10/21 05:38 Total Protein 5.3 g/dL (6.6-8.7) L 05/10/21 05:48 Albumin 3.0 g/dL (3.5-5.2) L 05/10/21 05:48 Globulin 2.3 g/dL (1.3-4.6) 05/10/21 05:48 Procalcitonin 0.08 ng/mL (0-0.5) 05/07/21 05:36 Vancomycin Trough 11.4 ug/mL (10-15) 05/04/21 06:39 Coronavirus 229E (PCR) Not detected (NOT DETECT) 05/02/21 12:55 SARS-CoV-2 (PCR) Detected (NOT DETECT) A 05/02/21 12:55 Vitals Last Vital Signs Temp 97.9 F 05/10/21 07:31 Pulse 93 05/10/21 07:31 Resp 16 05/10/21 07:31 BP 94/76 05/10/21 07:31 Pulse Ox 97 05/10/21 07:31 Discharge Plan Discharge Patient Disposition: Home Health Service Condition: Stable Prescriptions: New pantoprazole 40 mg Tablet,Delayed Release (Dr/Ec) 40 mg PO DAILY Qty: 30 0RF zinc 50 mg tablet 50 mg PO DAILY Qty: 14 0RF ascorbic acid (vitamin C) 500 mg capsule, extended release 500 mg PO BID Qty: 30 0RF ipratropium-albuterol 0.5 mg-3 mg(2.5 mg base)/3 mL solution for nebulization 3 ml inhalation TID Qty: 180 0RF prednisone 10 mg tablet See Rx Instructions .ROUTE .COMPLEX Qty: 90 0RF Rx Instructions: 30 mg twice daily for next 7 days, then 20 mg twice daily for next 7 days, then 10 mg twice daily till you see Dr. Mayfield Continued diltiazem HCl 240 mg capsule,extended release 24hr 240 mg PO DAILY Qty: 90 3RF escitalopram oxalate [Lexapro] 10 mg tablet 20 mg PO DAILY 0RF nitroglycerin [Nitrostat] 0.4 mg tablet, sublingual 0.4 mg sublingual Q5M PRN (Reason: chest pain) Qty: 25 3RF Rx Instructions: do not exceed 3 doses per episode acetaminophen [Tylenol] 325 mg tablet 650 mg PO Q6H PRN (Reason: pain) Qty: 240 3RF atorvastatin 20 mg tablet 20 mg PO DAILY 90 Days Qty: 90 3RF benzonatate [Tessalon Perles] 100 mg capsule 100 mg PO TID PRN (Reason: cough) 90 Days Qty: 270 2RF clopidogrel 75 mg tablet 75 mg PO DAILY 90 Days Qty: 90 1RF sulfamethoxazole-trimethoprim [Bactrim DS] 800-160 mg tablet 1 tab PO .COMPLEX 90 Days Qty: 45 6RF Rx Instructions: 1 tab PO Friday, Friday, Friday Esbriet 801 mg tablet 801 mg PO TID Qty: 90 11RF Rx Instructions: administer with food at the same time(s) each day cyclobenzaprine 10 mg tablet 10 mg PO BEDTIME PRN (Reason: Muscle Spasm) 0RF albuterol sulfate [ProAir HFA] 90 mcg/actuation Hfa Aerosol Inhaler 2 puff INHALATION Q4H PRN (Reason: Shortness Of Breath) 0RF fluticasone propionate 50 mcg/actuation spray,suspension 2 spray INTRANASAL DAILY 0RF Breztri Aerosphere 160-9-4.8 mcg/actuation HFA aerosol inhaler 2 inh inhalation BID 0RF lorazepam [Ativan] 1 mg Tablet 1 mg PO TID PRN (Reason: Anxiety) 0RF melatonin 10 mg tablet 10 mg PO BEDTIME 0RF loratadine 10 mg Tablet 10 mg PO DAILY 0RF ondansetron 4 mg tablet,disintegrating 4 mg PO Q8H PRN (Reason: nausea and vomiting) Qty: 7 0RF albuterol sulfate 2.5 mg /3 mL (0.083 %) solution for nebulization 2.5 mg inhalation QID PRN (Reason: Shortness Of Breath) 0RF Vitamin C 1 tab PO DAILY 0RF Vitamin D3 Gummies 1 tab PO DAILY 0RF sildenafil 25 mg tablet 25 mg PO PRN PRN (Reason: sexual activity) 0RF Rx Instructions: administer 1 hour before sexual activity Eliquis 5 mg tablet 2.5 mg PO BID 0RF Discontinued prednisone 10 mg tablet See Rx Instructions .ROUTE .COMPLEX 0RF Rx Instructions: 40 mg po daily for 10 days then adjust dose per drs instructions No Action (DME) oxygen-air delivery systems Device See Rx Instructions .Route 0RF Rx Instructions: As directed - 4L at rest & 8L with exertion (DME) [id number] Ventilator 0 .Route .MEDSUPPLY 0RF Discharge Orders: Discharge Order (Routine); Ordered 05/10/21 Ordered By: Alfonso Jackson Referrals: Daniel Nogueira DO [Primary Care Provider] - 4-7 days Joaquín Mayfield MD [Physician] - 2 weeks Discharge Diet: Cardiac Discharge Activity: Resume usual activity and Increase activity as tolerated Patient Instructions: Opioid Safety Activity Restrictions/Additional Instructions: Patient would benefit from aggressive pulmonary and physical rehab. Please follow-up with Dr. Mayfield within next 2 weeks. Steroid taper as below: 30 mg twice daily for next 7 days followed by 20 mg twice daily for next 7 days followed by 10 mg twice daily till you see Dr. Mayfield. Please follow-up with your primary care provider within next 1 week. Continue taking your Bactrim as before. Discharge Attestations Time Spent in Discharge Care*: greater than 30 min Specific Discharge Activities: educating patient, discussing with pcp/other providers, discussing with immigration case worker/social workers/dc planners, documenting/other paperwork and evaluating patient/reviewing data Status at Discharge: Cognitive status at discharge: cognitively intact , Behavioral status at discharge: cooperative , Functional status at discharge: uses cane/walker , Overall status at discharge: patient is back to baseline Quality Metrics Clinical Quality Measures [ No reported AMI, CVA or VTE this stay] Coding Level of Care Code Acute Chg FW DC note Diagnoses Acute and chronic respiratory failure with hypoxia J96.21 COVID-19 U07.1 Pulmonary interstitial fibrosis J84.10 Obstructive sleep apnea G47.33 COPD (chronic obstructive pulmonary disease) J43.9 COPD type: emphysema Emphysema type: unspecified Pulmonary embolism I27.82 Acute cor pulmonale presence: unspecified Chronicity: chronic Pulmonary embolism type: other
[2021-05-10 13:24] LABS: Glucose Point of Care 210 mg/dL (70-110)
--- NOTE | 2021-05-10 13:34 | PC.NURSE ---
Software Intern notified Sherry, SS, Dr Jackson said he would like you to see patient to set up home health Read 05/10/21, 10:37 headline writer also, he brought his home oxygen that he got from [facility] to the ER and we have not found that yet. He is worried about it being lost Read 05/10/21, 10:37 Sherry Okay, i will let [facility] know Read 05/10/21, 12:50 Software Intern [id number] has discharge orders to go home, did we get a tank from [facility] or what do we need to do since we lost his. 05/10/21, 12:51 Sherry [id number] no tank from [facility], dawson said u need to contact ER and have them find it, if thats where it was lost 05/10/21, 12:53 Software Intern that is where it was lost Read 05/10/21, 13:05 Sherry I have no clue 05/10/21, 13:05 Software Intern we can't send him home without it Read 05/10/21, 13:19 Sherry Madrigal [facility] will bring a tank but the other one needs to be found 05/10/21, 13:20 Software Intern and regulator and carrier. they were all lost Read 05/10/21, 13:25 Sherry Pro bringing tank
[2021-05-10 16:00] VITALS: BP 108/74; PULSE 105; RESP 16; TEMP 36.6; O2SAT 91
--- NOTE | 2021-05-10 17:23 | PC.NURSE ---
patient's daughter arrived and patient taken to private vehicle via wheelchair by staff.
[2021-05-10 17:24] VITALS: BP 108/74; PULSE 105; RESP 16; TEMP 36.6; O2SAT 91
== END 2021-05-10 17:25 | disposition home or self-care (01) | DRG 871 ==
LOC: ER 13:45 → ER IP 13:53 → MEDSURG 05-03 07:59 → ER IP 05-03 08:25 → MEDSURG 05-03 14:40
PROVIDERS: Admitting Provider Internal Medicine; Emergency Provider Family Medicine; PCP Family Medicine; Visit Provider Student in an Organized Health Care Education/Training Program
DX: A41.9 Sepsis, unspecified organism (principal); U07.1 COVID-19; B59 Pneumocystosis; J96.21 Acute and chronic respiratory failure with hypoxia; Z86.711 Personal history of pulmonary embolism; I25.10 Atherosclerotic heart disease of native coronary artery without angina pectoris; Z95.5 Presence of coronary angioplasty implant and graft; Z79.2 Long term (current) use of antibiotics; J43.9 Emphysema, unspecified; Z90.2 Acquired absence of lung [part of]; Z87.891 Personal history of nicotine dependence; E09.9 Drug or chemical induced diabetes mellitus without complications; T38.0X5A Adverse effect of glucocorticoids and synthetic analogues, initial encounter; Z79.01 Long term (current) use of anticoagulants; Z79.51 Long term (current) use of inhaled steroids; Z79.02 Long term (current) use of antithrombotics/antiplatelets; G47.33 Obstructive sleep apnea (adult) (pediatric)
CPT/HCPCS: 36415; 36416; 36600; 71045; 71250; 80048; 80051; 80053; 80202; 82330; 82805; 82962; 83036; 83540; 83550; 83605; 84145; 85025; 85378; 86140; 86403; 87040; 87070; 87205; 87449; 87635; 87641; 93005; 94640; 94660; 94664; 96365; 96367; 96372; 96375; 99291; J1100; J1815; J1940; J1956; J2060; J2405; J2543; J2930; J3370; J7626

== ENCOUNTER 2021-05-15 06:00 | Outpatient (RCR) | payer OTHER, SELFPAY | END 2021-06-11 23:59 | disposition home or self-care (01) | LOC: PULRHB 06:00 | PROVIDERS: PCP Family Medicine; Visit Provider Internal Medicine Critical Care Medicine | DX: J84.9 Interstitial pulmonary disease, unspecified (principal) | CPT/HCPCS: G0237; G0238 ==

== ENCOUNTER 2021-05-28 11:56 | Inpatient (IN) | payer OTHER, SELFPAY ==
[2021-05-28 12:05] VITALS: BP 112/68; PULSE 114; RESP 30; TEMP 36.7; O2SAT 89; BMI 23.5
--- NOTE | 2021-05-28 12:23 | CT_ITS ---
WS: [id number] CTA OF THE CHEST WITH PULMONARY EMBOLISM PROTOCOL TECHNIQUE: High-resolution contrast enhanced CTA of the chest with coronal and sagittal reformatted i noelle with pulmonary embolism protocol. MIP images are also reviewed. CLINICAL INFORMATION: eval pe COMPARISON: CT chest May 02, 2021 and CTA April 18, 2021 DLP: 577.[address] scans at [facility] use at least one of these dose optimization techniques: automated e xposure control; mA and/or kV adjustment per patient size (includes targeted exams where dose is matc hed to clinical indication); or iterative reconstruction. FINDINGS: Proximal main pulmonary arteries are normal. Enlarged pulmonary arteries can be seen with p ulmonary arterial hypertension. No filling defects to indicate pulmonary embolus. No mediastinal or hilar lymphadenopathy. No axillary lymphadenopathy. Adrenal glands are normal. Smal l RIGHT renal cortical cysts. Small esophageal hiatal hernia. Celiac and SMA are patent in the upper abdomen. Hepatomegaly. Evidence of idiopathic pulmonary fibrosis similar to the prior examinations. N o focal pneumonia or pleural fluid. Prior postoperative changes RIGHT upper lobectomy. Chronic wedge compression deformities in the mid t horacic spine T6 T7 T8 T9 T10. Previous cervical fusion. Thoracic scoliosis. CT/CT angio chest PE protcl [id number] IMPRESSION: 1. No evidence of pulmonary embolus. 2. Enlarged main pulmonary arteries can be seen with pulmonary arterial hypert ension. 3. Prior postoperative changes RIGHT upper lobectomy. 4. Evidence of idiopathic pulmonary fibrosis unchanged since the prior examina tions. 5. Chronic compression fractures in the mid thoracic spine described above unc hanged.
--- NOTE | 2021-05-28 12:24 | XRR_ITS ---
PROCEDURE INFORMATION: Exam: XR Chest Exam date and time: 05/28/2021 12:24 PM Age: 65 years old Clinical indication: Dyspnea TECHNIQUE: Imaging protocol: XR of the chest. Views: 1 view. COMPARISON: CT angio chest PE protcl [id number] 05/28/2021 1:04 PM FINDINGS: Lungs: Low lung volumes. There is ground-glass and reticular opacities involving mainly the lower lungs, consistent with pulmonary fibrosis seen on CT chest. Superimposed pneumonia should be excluded clinically. Pleural spaces: Unremarkable. No pleural effusion. No pneumothorax. Heart/Mediastinum: Stable cardiomediastinal silhouette. Bones/joints: Cervical spine fusion hardware noted. XR/XR chest 1V portable [id number] IMPRESSION: Bilateral airspace opacities, corresponding to changes of pulmonary fibrosis seen on CT chest. Superimposed pneumonia should be excluded clinically.
--- NOTE | 2021-05-28 12:40 | ED_ITS ---
HPI - General Adult General: Chief complaint: Shortness of Breath/Dyspnea Stated complaint: sent from Dr. sabillon office due to o2 Time Seen by Provider: 05/28/21 12:12 History of Present Illness: 65-year-old male with history of COPD, pulmonary fibrosis at baseline on 6 L oxygen presenting to the emergency room from work for increased work of breathing and respiratory distress. Patient tells me that he contracted Covid about 3 weeks ago. Since then has had lingering cough and respiratory distress. Patient reported that for the last 2 weeks he has increased oxygen requirement to 10 L. Patient is currently followed by Dr. Thrasher from the pulmonary clinic. However earlier today, patient was seen in Dr. Thrasher's office was noted to be satting at 72% on room air. Patient required 15 L of oxygen. Patient was transported emergently for further evaluation. Of note, for patient's pulmonary fibrosis, he is currently on 40 mg of prednisone daily. Patient is currently waiting for transplant list in [place]. Onset:acute on chronic Duration:ongoing Location:home Severity:moderate Associated symptoms: Reports dyspnea; Deny chest pain, nausea, rash, palpitations or vomiting Review of Systems Const: Denies: fever(s) or chills Eyes: Denies: change in vision ENMT: Denies: mouth pain Card: Denies: chest pain or palpitations Resp: Reports: dyspnea and non-productive cough GI: Denies: abdominal pain, nausea, vomiting or diarrhea : Denies: dysuria Musc: Denies: extremity pain Skin/Breast: Denies: rash or new lesions Neuro: Denies: weakness in extremities Psych: Reports: other (Normal mood) Jamari/Lymph: Denies: easy bruising PFSH ED PFSH: Medical History Abnormal stress test Acute and chronic respiratory failure with hypoxia 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 Aspergillosis Atrial tachycardia COPD (chronic obstructive pulmonary disease) Coronary artery disease Cubital tunnel syndrome on right Diabetes Diabetes Emphysema of lung Erectile dysfunction Gross hematuria High risk medication use Joint pain Left lower quadrant pain Obstructive sleep apnea P-ANCA titer positive Pneumocystis jiroveci pneumonia Pulmonary embolism Pulmonary interstitial fibrosis Pulmonary nodule Surgical absence of teeth SVT (supraventricular tachycardia) Tobacco abuse Urolithiasis Surgical History H/O neck surgery H/O: vasectomy History of ankle surgery History of dental surgery History of facial surgery History of lung biopsy S/P lobectomy of lung Family History Father , AT AGE 78 Cancer Hypertension Mother Diabetes Brother Diabetes Sister Diabetes Father Cancer Prostate Social History Quit status (tobacco): has quit using tobacco Year quit tobacco: 2019 - 2PPD x 40 Years Second hand smoke exposure: No Alcohol intake: never Marital status: Number of children: 3 Number of grandchildren: 4 Current occupational status: retired and disabled History of recent travel: No 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 Physical Exam Const: COMMON NORMALS: alert HENMT: COMMON NORMALS: atraumatic HEAD & SCALP: atraumatic MOUTH: moist mucous membranes not abnormal Eye: COMMON NORMALS: EOMs intact bilaterally and conjunctivae normal CONJUNCTIVA: Yes conjunctivae normal Neck/C-Spine: COMMON NORMALS: full ROM and supple Resp: OTHER: +tachypnea, +coarse breath sounds b/l Cardio: RATE: tachycardic GI: COMMON NORMALS: Soft to palpation and non-tender PALPATION: Yes Soft to palpation Extremity: COMMON NORMALS: full ROM Neuro: SENSORIUM/ORIENTATION: Yes alert MOTOR EXAM: No Abnormal motor strength present and Other motor observations present (no focal motor deficits) Psych: COMMON NORMALS: speech normal SPEECH: Yes normal speech MOOD & AFFECT: Yes euthymic mood Course Vital Signs: Vital signs: Vital Signs Temperature 98.1 F 05/28/21 12:05 Pulse Rate 93 05/28/21 12:49 Respiratory Rate 22 H 05/28/21 12:49 Blood Pressure 103/78 05/28/21 12:49 Pulse Oximetry 97 05/28/21 12:49 MDM - General Adult Medical Decision Making 65-year-old male with history of pulmonary fibrosis on 6 L oxygen at baseline, COPD, recent covid 3 weeks ago presenting to the emergency room for evaluation of respiratory distress at the request of Dr. Thrasher. Patient was satting at 78% on room air requiring 15L to improve oxygen to 94 to 98%. Breath sounds noted bilaterally in the lung lieberman. Work-up: CBC, BMP, troponin, EKG, BMP, x-ray chest, CT chest Intervention: oxygen, observation CTA chest showed significant pulmonary fibrosis with pulmonary hypertension. Findings of PE. White count 9.3. No suspecting this is acute infection. Patient will be admitted to hospital for increased oxygen requirement. Disposition: admission Lab Data : 05/28/21 12:38 05/28/21 12:38 Radiology Impressions Chest CTA 05/28/21 12:23 IMPRESSION: 1. No evidence of pulmonary embolus. 2. Enlarged main pulmonary arteries can be seen with pulmonary arterial hypertension. 3. Prior postoperative changes RIGHT upper lobectomy. 4. Evidence of idiopathic pulmonary fibrosis unchanged since the prior examinations. 5. Chronic compression fractures in the mid thoracic spine described above unchanged. Chest X-Ray 05/28/21 12:24 IMPRESSION: Bilateral airspace opacities, corresponding to changes of pulmonary fibrosis seen on CT chest. Superimposed pneumonia should be excluded clinically. Laboratory Results WBC 9.8 10^3/uL (4.0-10.0) 05/28/21 12:38 RBC 4.39 10^6/uL (4.1-5.3) 05/28/21 12:38 Hgb 11.3 g/dL (11.7-16.6) L 05/28/21 12:38 Hct 36.0 % (42.0-52.0) L 05/28/21 12:38 MCV 82.0 fl (80-94) 05/28/21 12:38 MCH 25.7 pg (28.0-34.0) L 05/28/21 12:38 MCHC 31.4 g/dL (30.0-36.0) 05/28/21 12:38 RDW 17.7 % (12.1-15.1) H 05/28/21 12:38 Plt Count 237 10^3/cmm (130-400) 05/28/21 12:38 MPV 8.7 fL (7.4-10.4) 05/28/21 12:38 Neut % (Auto) 79.9 % 05/28/21 12:38 Lymph % (Auto) 14.4 % 05/28/21 12:38 Parmer % (Auto) 3.8 % 05/28/21 12:38 Eos % (Auto) 0.0 % 05/28/21 12:38 Baso % (Auto) 0.3 % 05/28/21 12:38 Neut # (Auto) 7.85 10^3/uL (1.8-7.7) H 05/28/21 12:38 Lymph # (Auto) 1.4 10^3/uL (0.8-4.8) 05/28/21 12:38 Parmer # (Auto) 0.4 10^3/uL (0.2-0.9) 05/28/21 12:38 Eos # (Auto) 0.0 10^3/uL (0.0-0.8) 05/28/21 12:38 Baso # (Auto) 0.0 10^3/uL (0.0-0.1) 05/28/21 12:38 Nucleated RBC % (auto) 0 % 05/28/21 12:38 Nucleated RBCs # 0.0 /100WBC 05/28/21 12:38 Fibrinogen 566 mg/dL (174-498) H 05/28/21 12:38 D-Dimer 0.50 ug/mIFEU (0-0.59) 05/28/21 12:38 Specimen Type Arterial 05/28/21 12:31 Sample Site Brachial, left 05/28/21 12:31 ABG pH 7.44 (7.35-7.45) 05/28/21 12:31 ABG pCO2 38.4 mmHg (35-45) 05/28/21 12:31 ABG pO2 183.0 mmHg (80.0-100.0) H 05/28/21 12:31 ABG HCO3 26.3 mmol/L (22-26) H 05/28/21 12:31 ABG Base Excess 2.1 mmol/L (-2.0-2.0) H 05/28/21 12:31 Erickson Test N/a 05/28/21 12:31 Hematocrit 34.8 % (42-52) L 05/28/21 12:31 O2 Delivery Device Nrb 05/28/21 12:31 O2 Liters/Min 15.0 % 05/28/21 12:31 FiO2 100.0 % 05/28/21 12:31 Credit Risk Review Officer ID Ed 05/28/21 12:31 Imaging Data Other Imaging: Radiologist's impression: [facility] [address] XRay Report Signed Patient: Gregg Babcock Unit #: [id number] : 1955 Age/Sex: 65 / M ADM Date: 05/28/21 Loc: ER Room/Bed: Attending Dr: Ordering Provider/Ordering MD: Michelle Lyle MD Date of Service: 05/28/21 Procedure(s): XR chest 1V portable [id number] Accession Number(s): [id number] Report Number: [id number] PROCEDURE INFORMATION: Exam: XR Chest Exam date and time: 05/28/2021 12:24 PM Age: 65 years old Clinical indication: Dyspnea TECHNIQUE: Imaging protocol: XR of the chest. Views: 1 view. COMPARISON: CT angio chest PE protcl [id number] 05/28/2021 1:04 PM FINDINGS: Lungs: Low lung volumes. There is ground-glass and reticular opacities involving mainly the lower lungs, consistent with pulmonary fibrosis seen on CT chest. Superimposed pneumonia should be excluded clinically. Pleural spaces: Unremarkable. No pleural effusion. No pneumothorax. Heart/Mediastinum: Stable cardiomediastinal silhouette. Bones/joints: Cervical spine fusion hardware noted. XR/XR chest 1V portable [id number] IMPRESSION: Bilateral airspace opacities, corresponding to changes of pulmonary fibrosis seen on CT chest. Superimposed pneumonia should be excluded clinically. ? Dictated By: Jake Alfaro Signed By: Jake Alfaro Signed Date/Time: 05/28/21 1334 DD/ [address] [address] [address] Scan Report Signed Patient: Gregg Babcock Unit #: [id number] : 1955 Age/Sex: 65 / M ADM Date: 05/28/21 Loc: ER Room/Bed: Attending Dr: Ordering Provider/Ordering MD: Michelle yLle MD Date of Service: 05/28/21 Procedure(s): CT angio chest PE protcl [id number] Accession Number(s): [id number] Report Number: [id number] WS: [id number] CTA OF THE CHEST WITH PULMONARY EMBOLISM PROTOCOL TECHNIQUE: High-resolution contrast enhanced CTA of the chest with coronal and sagittal reformatted images with pulmonary embolism protocol. MIP images are also reviewed. CLINICAL INFORMATION: eval pe COMPARISON: CT chest May 02, 2021 and CTA April 18, 2021 DLP: 577.[address] scans at [facility] use at least one of these dose optimization techniques: automated exposure control; mA and/or kV adjustment per patient size (includes targeted exams where dose is matched to clinical indication); or iterative reconstruction. FINDINGS: Proximal main pulmonary arteries are normal. Enlarged pulmonary arteries can be seen with pulmonary arterial hypertension. No filling defects to indicate pulmonary embolus. No mediastinal or hilar lymphadenopathy. No axillary lymphadenopathy. Adrenal glands are normal. Small RIGHT renal cortical cysts. Small esophageal hiatal hernia. Celiac and SMA are patent in the upper abdomen. Hepatomegaly. Evidence of idiopathic pulmonary fibrosis similar to the prior examinations. No focal pneumonia or pleural fluid. Prior postoperative changes RIGHT upper lobectomy. Chronic wedge compression deformities in the mid thoracic spine T6 T7 T8 T9 T10. Previous cervical fusion. Thoracic scoliosis. CT/CT angio chest PE protcl [id number] IMPRESSION: ? 1.? No evidence of pulmonary embolus. 2.? Enlarged main pulmonary arteries can be seen with pulmonary arterial hy pertension. 3.? Prior postoperative changes RIGHT upper lobectomy. 4.? Evidence of idiopathic pulmonary fibrosis unchanged since the prior examinations. 5.? Chronic compression fractures in the mid thoracic spine described above unchanged. ? Dictated By: Rosalio Prado MD Signed By: Rosalio Prado MD Signed Date/Time: 05/28/21 1333 DD/ 1323 Discharge Plan Discharge Patient Disposition: Admitted As Inpatient Clinical Impression: Acute hypoxemic respiratory failure, Pulmonary fibrosis Condition: Stable Coding Level of Care Code ED Architectural Designer for Chg Fwd Exam Comprehensive
[2021-05-28 12:41] LABS: ABG PCO2 38.4 mmHg (35-45); ABG PH Result 7.44 (7.35-7.45); Arterial Blood Gas Hematocrit 34.8 % (42-52); Base Excess ABG 2.1 mmol/L (-2.0-2.0); Blood Gas Sample Type Arterial; HCO3 ABG 26.3 mmol/L (22-26)
[2021-05-28 12:42] LABS: Blood Gas Operator Identificat ED; Blood Gas Sample Site Brachial, left; Oxygen Device NRB
[2021-05-28] MEDS: lactated ringers 1,000 ML 75 ML IV (12:47)
[2021-05-28 12:49] VITALS: BP 103/78; PULSE 93; RESP 22; O2SAT 97
[2021-05-28 13:01] LABS: Basophils % 0.3 %; Hemoglobin 11.3 g/dL (11.7-16.6); Lymphocytes # 1.4 10^3/uL (0.8-4.8); Lymphocytes % 14.4 %; Mean Corpuscular HGB Conc 31.4 g/dL (30.0-36.0); Mean Corpuscular Hemoglobin 25.7 pg (28.0-34.0); Mean Platelet Volume 8.7 fL (7.4-10.4); Monocytes # 0.4 10^3/uL (0.2-0.9); Monocytes % 3.8 %; Neutrophils # 7.85 10^3/uL (1.8-7.7); Neutrophils % 79.9 %; Nucleated Red Blood Cells % 0 %; Platelet Count 237 10^3/cmm (130-400); Red Blood Count 4.39 10^6/uL (4.1-5.3); Red Cell Distribution Width 17.7 % (12.1-15.1); White Blood Count 9.8 10^3/uL (4.0-10.0)
[2021-05-28] MEDS: iohexol 350 mg/mL 100 mL Btl IV (13:06)
[2021-05-28 13:18] LABS: Fibrinogen 566 mg/dL (174-498)
[2021-05-28 13:46] LABS: Troponin T (5th) Once 16 ng/L (0-15)
[2021-05-28 13:54] LABS: NT Pro B Type Natriuretic Pept 14 pg/mL (0-125); Procalcitonin 0.06 ng/mL (0-0.5)
[2021-05-28 14:05] VITALS: BP 103/78; PULSE 91; RESP 23; O2SAT 98
[2021-05-28 14:06] LABS: Alanine Aminotransferase 26 U/L (0-41); Albumin Level 3.5 g/dL (3.5-5.2); Alkaline Phosphatase 89 IU/L (40-130); Anion Gap 14.8 (5-19); Aspartate Amino Transferase 16 U/L (0-40); Blood Urea Nitrogen 18 mg/dL (8-23); C Reactive Protein 24.9 mg/L (0.0-4.9); Calcium 8.6 mg/dL (8.5-10.5); Carbon Dioxide 25 mmol/L (22-29); Chloride 101 mmol/L (98-107); Creatine Phosphokinase 42 U/L (39-308); Globulin 2.3 g/dL (1.3-4.6); Glomerular Filtration Rate 136.1 mL/min (90-130); Glucose 128 mg/dL (65-115); Magnesium 2.1 mg/dL (1.7-2.3); Osmolality Calculated 286 mOsm/kg (285-295); Potassium 4.8 mmol/L (3.5-5.1); Sodium 136 mmol/L (136-145); Total Bilirubin 0.2 mg/dL (0.15-1.2); Total Protein 5.8 g/dL (6.6-8.7)
[2021-05-28 14:52] LABS: Lactic Sepsis W/Reflex 1.2 mmol/L (0.5-2.2)
[2021-05-28 15:02] VITALS: BP 103/78; PULSE 80; RESP 21; O2SAT 99
[2021-05-28 15:25] LABS: Adenovirus Not Detected (NOT DETECT); Chlamydia Pneumoniae Not Detected (NOT DETECT); Coronavirus 229E,HKU1,NL63,OC4 Not Detected (NOT DETECT); Human Metapneumovirus Not Detected (NOT DETECT); Human Rhinovirus/Enterovirus Not Detected (NOT DETECT); Influenza A Not Detected (NOT DETECT); Influenza A H1 Not Detected (NOT DETECT); Influenza A H1-2009 Not Detected (NOT DETECT); Influenza A H3 Not Detected (NOT DETECT); Influenza B Not Detected (NOT DETECT); Mycoplasma Pneumoniae Not Detected (NOT DETECT); Parainfluenza Virus Type 1 Not Detected (NOT DETECT); Parainfluenza Virus Type 2 Not Detected (NOT DETECT); Parainfluenza Virus Type 3 Not Detected (NOT DETECT); Parainfluenza Virus Type 4 Not Detected (NOT DETECT); Respiratory Syncytial Virus A Not Detected (NOT DETECT); Respiratory Syncytial Virus B Not Detected (NOT DETECT); SARS-COV-2 Not Detected (NOT DETECT)
--- NOTE | 2021-05-28 17:57 | PM.HP ---
Providers/Chief Complaint Admitting Physician: Willian Perez MD Primary Care Provider: Daniel Nogueira DO Chief Complaint: sent from datars office due to o2 History of Present Illness Gregg Babcock is a 65 year old male with past medical history of coronary artery disease,IPF, COPD on 8 LS home oxygen, currently awaiting lung transplant at [facility], diabetes, PHT , recent history of COVID-19 pneumonia, was here today for his outpatient Pulmonary follow-up, was sent to ER from there is a supplemental oxygen requirement was much higher than his baseline. Currently patient is saying that since his discharge after being managed for COVID-19 pneumonia on 05/10, his shortness of breath Has continued to worsen, currently short of breath with minimal exertion, he is short of breath even while moving bare minimum at his home, his supplemental oxygen requirement has also gone up, shortness of breath is accompanied with nonproductive cough, cough spells are accompanied with chest pain. Currently he denies any fever chills, nausea , vomiting , headache. Upon arrival in the ER he was worked up for above-mentioned complaint: Pertinent imaging studies: CTA chest: ?No evidence of pulmonary embolus. Enlarged main pulmonary arteries can be seen with pulmonary arterial hypertension.Evidence of idiopathic pulmonary fibrosis unchanged since the prior examinations. Pertinent labs: WBC 9.8 H&H 11.3/ 36 , plt : 237 , serum sodium 136 serum potassium 4.8 BUN serum creatinine 18/ 0.6 , proBNP:14 , procalcitonin:0.06 , ABG: pH 7.44 PCO2 38 PO2 183, FiO2 15LS /MIN, 100% through nonrebreather mask Patient was given Solu-Medrol 125 mg IV one-time dose in the ER Review of Systems General: Reports: 10 or more systems reviewed and unremarkable except in HPI and below Const: Denies: fever(s), chills, body aches, change in appetite or diaphoresis Card: Denies: palpitations, edema, swelling of feet/ankles or leg pain with exertion Resp: Denies: wheezing or pain on inspiration GI: Denies: abdominal pain, nausea, vomiting, diarrhea or constipation : Denies: flank pain or difficulty urinating Musc: Denies: back pain, extremity pain or extremity swelling Neuro: Denies: headache(s), difficulty walking or confusion Medications/Allergies Home Medications Medication Instructions Recorded Confirmed Last Taken Type escitalopram oxalate 10 mg tablet 20 mg PO DAILY tab 03/14/20 05/02/21 01/20/21 History (Lexapro) albuterol sulfate 90 mcg/actuation 2 puff INHALATION Q4H PRN 09/12/20 05/02/21 Unknown History aerosol inhaler (ProAir HFA) budesonide 160 mcg-glycopyr 9 2 inh INHALATION BID 09/12/20 05/02/21 01/20/21 History mcg-formot 4.8 mcg/actuation HFA inhaler (Breztri Aerosphere) fluticasone propionate 50 2 spray INTRANASAL DAILY 09/12/20 05/02/21 Unknown History mcg/actuation nasal spray,suspension nitroglycerin 0.4 mg sublingual 0.4 mg SUBLINGUAL Q5M PRN #25 tab 09/12/20 05/02/21 Unknown Rx tablet (Nitrostat) lorazepam 1 mg tablet (Ativan) 1 mg PO TID PRN 09/13/20 05/02/21 Unknown History acetaminophen 325 mg tablet 650 mg PO Q6H PRN #240 tab 09/28/20 05/02/21 Unknown Rx (Tylenol) [id number] Ventilator 10/02/20 05/02/21 Unknown History oxygen-air delivery systems 10/02/20 05/02/21 Unknown History atorvastatin 20 mg tablet 20 mg PO DAILY 90 Days #90 tab 10/18/20 05/02/21 01/20/21 Rx benzonatate 100 mg capsule 100 mg PO TID PRN 90 Days #270 cap 11/10/20 05/02/21 Unknown Rx (Marlon Martinez) clopidogrel 75 mg tablet 75 mg PO DAILY 90 Days #90 tab 11/15/20 05/02/21 01/20/21 Rx sulfamethoxazole 800 1 tab PO .COMPLEX 90 Days #45 tab 11/15/20 05/02/21 Unknown Rx mg-trimethoprim 160 mg tablet (Bactrim DS) cyclobenzaprine 10 mg tablet 10 mg PO BEDTIME PRN tab 12/08/20 05/02/21 01/20/21 History ondansetron 4 mg disintegrating 4 mg PO Q8H PRN #7 tab 12/30/20 05/02/21 Unknown Rx tablet loratadine 10 mg tablet 10 mg PO DAILY 01/21/21 05/02/21 01/20/21 History melatonin 10 mg tablet 10 mg PO BEDTIME 01/21/21 05/02/21 01/19/21 History diltiazem HCl 240 mg 240 mg PO DAILY #90 cap 03/12/21 05/02/21 Unknown Rx capsule,extended release 24 hr Vitamin C 1 tab PO DAILY 04/18/21 05/02/21 Unknown History Vitamin D3 Gummies 1 tab PO DAILY 04/18/21 05/02/21 Unknown History albuterol sulfate 2.5 mg INHALATION QID PRN 04/18/21 05/02/21 Unknown History sildenafil 25 mg tablet 25 mg PO PRN PRN 04/18/21 05/02/21 Unknown History pirfenidone 801 mg tablet (Esbriet) 801 mg PO TID #90 tab 04/27/21 05/02/21 Unknown Rx apixaban 5 mg tablet (Eliquis) 2.5 mg PO BID 05/02/21 05/02/21 Unknown History ascorbic acid (vitamin C) 500 mg 500 mg PO BID #30 cap 05/10/21 Unknown Rx capsule,extended release ipratropium 0.5 mg-albuterol 3 mg 3 ml INHALATION TID #180 ml 05/10/21 Unknown Rx (2.5 mg base)/3 mL nebulization soln pantoprazole 40 mg tablet,delayed 40 mg PO DAILY #30 tab 05/10/21 Unknown Rx release prednisone 10 mg tablet See Rx Instructions .ROUTE 05/10/21 Unknown Rx .COMPLEX #90 tab zinc 50 mg tablet 50 mg PO DAILY #14 tab 05/10/21 Unknown Rx Allergies Allergy/AdvReac Type Severity Reaction Status Date / Time insect venom Allergy ALGY-Difficulty Verified 05/02/21 10:40 Swallowing PFSH Acute PFSH: Medical History Abnormal stress test Acute and chronic respiratory failure with hypoxia 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 Aspergillosis Atrial tachycardia COPD (chronic obstructive pulmonary disease) Coronary artery disease Cubital tunnel syndrome on right Diabetes Diabetes Emphysema of lung Erectile dysfunction Gross hematuria High risk medication use Joint pain Left lower quadrant pain Obstructive sleep apnea P-ANCA titer positive Pneumocystis jiroveci pneumonia Pulmonary embolism Pulmonary interstitial fibrosis Pulmonary nodule Surgical absence of teeth SVT (supraventricular tachycardia) Tobacco abuse Urolithiasis Surgical History H/O neck surgery H/O: vasectomy History of ankle surgery History of dental surgery History of facial surgery History of lung biopsy S/P lobectomy of lung Family History Father , AT AGE 78 Cancer Hypertension Mother Diabetes Brother Diabetes Sister Diabetes Father Cancer Prostate Social History Quit status (tobacco): has quit using tobacco Year quit tobacco: 2020 - 2PPD x 40 Years Second hand smoke exposure: No Alcohol intake: never Marital status: Number of children: 3 Number of grandchildren: 4 Current occupational status: retired and disabled History of recent travel: No Dian/Holiness: Jewish Vitals/I&O/Wt Last Vital Signs Temp 98.1 F 05/28/21 12:05 Pulse 80 05/28/21 15:02 Resp 21 H 05/28/21 15:02 BP 103/78 05/28/21 15:02 Pulse Ox 99 05/28/21 15:02 Weight last 48 hrs Weight 74.389 kg Physical Exam Const: COMMON NORMALS: patient oriented x3 HENMT: COMMON NORMALS: normocephalic, atraumatic, hearing grossly normal bilaterally and external ears normal HEAD & SCALP: normocephalic and atraumatic EXTERNAL EAR: Yes external ears normal Eye: COMMON NORMALS: no scleral icterus GENERAL EYE: appearance normal, both eyes and all related structures Chest: COMMONS NORMALS: normal inspection of the chest and normal palpation of entire chest wall CHEST: Yes Symmetrical chest wall rise Resp: EFFORT & INSPECTION: Yes symmetric chest movement AUSCULTATION: clear to auscultation bilaterally OTHER: Bilateral inspiratory crackles present in both lung lieberman, use of accessory muscles of respiration, tachypneic Cardio: COMMON NORMALS: regular rate, regular rhythm, S1 normal heart sound present, S2 normal heart sound present, No gallops present (Cardio), No murmurs present (Cardio), No rub (Cardio) and Peripheral pulses 2+ throughout RATE: regular rate RHYTHM: regular rhythm HEART SOUNDS: S1 normal heart sound present and S2 normal heart sound present PERIPHERAL PULSES: Peripheral pulses 2+ throughout GI: COMMON NORMALS: Normal to inspection, nondistended, normoactive bowel sounds present, Soft to palpation, non-tender, No hepatosplenomegaly present and no masses AUSCULTATION: Yes normoactive bowel sounds PALPATION: Yes Soft to palpation and Yes No hepatosplenomegaly present RECTAL EXAM: Yes deferred Extremity: COMMON NORMALS: no clubbing, cyanosis or edema and no pedal edema Neuro: COMMON NORMALS: patient oriented x3 Data : 05/28/21 12:38 05/28/21 12:38 A&P Assessment and plan (1) Acute on chronic respiratory failure with hypoxia: Status: Acute (2) Idiopathic pulmonary fibrosis: Status: Acute (3) COPD (chronic obstructive pulmonary disease): Status: Acute (4) SVT (supraventricular tachycardia): Status: Acute (5) Interstitial lung disease: Status: Chronic (6) Coronary artery disease: Status: Chronic Qualifiers: Coronary Disease-Associated Artery/Lesion type: [place] artery [place] vs. transplanted heart: [place] heart Associated angina: with unspecified angina Qualified Code(s): I25.119 - Atherosclerotic heart disease of [place] coronary artery with unspecified angina pectoris Plan Assessment: #Acute on chronic hypoxic respiratory failure secondary to: IPF exacerbation, possibly secondary to underlying pneumonia: Patient came in with worsening shortness of breath, nonproductive cough, increasing supplemental oxygen requirement. Follow-up: MRSA PCR, sputum culture, blood culture, urine Legionella antigen, bacterial antigen panel. Continue to monitor x-ray chest , ABG. Continue broad-spectrum antibiotics (namely Vanco and Zosyn for now) Continue Solu-Medrol 60 mg IV twice daily DuoNebs Supplemental oxygen as needed Continue pirfenidone Continue antitussives #History of coronary artery disease: Continue statin , Eliquis , Plavix #History of IPF #History of ILD #History of COPD #DM :SSI , monitor fingerstick glucose, carb consistent diet CODE STATUS: Limited resuscitation DVT prophylaxis: Not needed on Eliquis Attestations Medical Necessity Statement*: Patient is IN hospital for management of acute on chronic hypoxic respiratory failure. Anticipated length of stay greater than 2 midnights. Time Spent in Patient Care: Greater than 35 minutes (>than 50% of time spent in counselling and/or direct pt care on unit). Coding Level of Care Code Acute Dental Service Technician for g Fwd Exam Comprehensive Diagnoses Acute on chronic respiratory failure with hypoxia J96.21 Idiopathic pulmonary fibrosis J84.112 COPD (chronic obstructive pulmonary disease) J44.9 SVT (supraventricular tachycardia) I47.1 Interstitial lung disease J84.9 Coronary artery disease I25.119 Coronary Disease-Associated Artery/Lesion type: [place] artery [place] vs. transplanted heart: [place] heart Associated angina: with unspecified angina
[2021-05-28 18:02] VITALS: BP 124/86; PULSE 88; RESP 23; O2SAT 97
[2021-05-28] MEDS: piperacillin-tazobactam 3.375 GM in sodium chloride 0.9% (plus) 50 ML IV (19:22)
[2021-05-28 21:45] VITALS: PULSE 88; RESP 22; O2SAT 98
[2021-05-28] MEDS: ipratropium-albuterol 3 mL Neb INHALATION (21:45)
[2021-05-28] MEDS: LORazepam 1 mg Tablet PO (21:57)
[2021-05-29] VITALS (12 sets, daily range): BP systolic 96–125; BP diastolic 61–79; PULSE 58–112; RESP 16–22; TEMP 36.3–37.2; O2SAT 91–100; BMI 38.3
[2021-05-29] MEDS: cyclobenzaprine 10 mg Tablet 5 MG PO ×2 (00:40→21:29)
[2021-05-29] MEDS: vancomycin 1,250 MG/250 ML PIGGYBACK 250 MG IV ×4 (03:04→22:35)
[2021-05-29] MEDS: piperacillin-tazobactam 3.375 GM in sodium chloride 0.9% (plus) 50 ML IV ×3 (04:35→18:34)
--- NOTE | 2021-05-29 06:13 | PM.CONSULT ---
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 Patient follows up with Dr. Mayfield pulmonology clinic-currently on pirfenidone for his pulmonary fibrosis and also attends pulmonary rehabilitation.? Pt had hospital admissions in April 1 week for worsening oxygen requirement and after passing out at home.? His prednisone has been increased to 60 mg daily and was discharged on 04/20/2021 with tapering dose.? He also takes Bactrim for PCP prophylaxis and Breztri 2 puffs twice daily for his COPD.? Has significant history of smoking 2 pack/day for 40 years and quit using tobacco in 2019.? Post discharge he will followed up with Dr. Mayfield and was recommended to continue tapering his p.o. prednisone follow-up in 1 month. Then again he was readmitted on 05/02/2021-patient came to emergency room for worsening shortness of breath and spiking fevers.? Imaging showed findings consistent with chronic interstitial pneumonitis with no significant change.? His COVID-19 testing was positive and patient was admitted for impending respiratory failure.?He was started on treatment for COVID-19 with IV remdesivir, dexamethasone and inhalation treatment along with aggressive incentive spirometry and flutter valve.? He was started on a higher dose of dexamethasone given history of IPF.? He was also covered with IV antibiotics for high suspicion of superimposed bacterial pneumonia.? Sputum culture and blood culture remain negative.? Patient received treatment with IV antibiotic for 7 days.? His oxygenation continues to improve and has been at baseline oxygen 4-6L on oxypendant supplementation which he is at home for last 48 to 60 hours both at rest and on ambulation.He was discharged home on 05/10/21. Post discharge he was attending pulmonary rehab. But his Oxygen requirements went up to 15 -20 L on oxypendant on exertion and at rest 8-10 L. Pt came to pulmonary clinic for follow up visit post discharge but due to increasing FIO2 requirement he was sent to ER for work up to rule out any superimposing infection. Pulmonary critical care consult requested for hypoxia and patient with underlying combined emphysema and pulmonary fibrosis with new diagnosis COVID-19 pneumonia. Patient seen at bedside today He is currently on 50% high flow nasal cannula reports; he is feeling short of breath on exertion ABG today morning on 7 L showed 7.4 6/39/65/27/92% 1 out of 4 blood cultures grew Corynebacterium species-currently patient is on Zosyn, Levaquin, vancomycin Other labs and imaging reviewed Medications/Allergies Home Medications Medication Instructions Recorded Confirmed Last Taken Type escitalopram oxalate 10 mg tablet 20 mg PO DAILY tab 03/14/20 05/02/21 01/20/21 History (Lexapro) albuterol sulfate 90 mcg/actuation 2 puff INHALATION Q4H PRN 09/12/20 05/02/21 Unknown History aerosol inhaler (ProAir HFA) budesonide 160 mcg-glycopyr 9 2 inh INHALATION BID 09/12/20 05/02/21 01/20/21 History mcg-formot 4.8 mcg/actuation HFA inhaler (Breztri Aerosphere) fluticasone propionate 50 2 spray INTRANASAL DAILY 09/12/20 05/02/21 Unknown History mcg/actuation nasal spray,suspension nitroglycerin 0.4 mg sublingual 0.4 mg SUBLINGUAL Q5M PRN #25 tab 09/12/20 05/02/21 Unknown Rx tablet (Nitrostat) lorazepam 1 mg tablet (Ativan) 1 mg PO TID PRN 09/13/20 05/02/21 Unknown History acetaminophen 325 mg tablet 650 mg PO Q6H PRN #240 tab 09/28/20 05/02/21 Unknown Rx (Tylenol) [id number] Ventilator 10/02/20 05/02/21 Unknown History oxygen-air delivery systems 10/02/20 05/02/21 Unknown History atorvastatin 20 mg tablet 20 mg PO DAILY 90 Days #90 tab 10/18/20 05/02/21 01/20/21 Rx benzonatate 100 mg capsule 100 mg PO TID PRN 90 Days #270 cap 11/10/20 05/02/21 Unknown Rx (Marlon Martinez) clopidogrel 75 mg tablet 75 mg PO DAILY 90 Days #90 tab 11/15/20 05/02/21 01/20/21 Rx sulfamethoxazole 800 1 tab PO .COMPLEX 90 Days #45 tab 11/15/20 05/02/21 Unknown Rx mg-trimethoprim 160 mg tablet (Bactrim DS) cyclobenzaprine 10 mg tablet 10 mg PO BEDTIME PRN tab 12/08/20 05/02/21 01/20/21 History ondansetron 4 mg disintegrating 4 mg PO Q8H PRN #7 tab 12/30/20 05/02/21 Unknown Rx tablet loratadine 10 mg tablet 10 mg PO DAILY 01/21/21 05/02/21 01/20/21 History melatonin 10 mg tablet 10 mg PO BEDTIME 01/21/21 05/02/21 01/19/21 History diltiazem HCl 240 mg 240 mg PO DAILY #90 cap 03/12/21 05/02/21 Unknown Rx capsule,extended release 24 hr Vitamin C 1 tab PO DAILY 04/18/21 05/02/21 Unknown History Vitamin D3 Gummies 1 tab PO DAILY 04/18/21 05/02/21 Unknown History albuterol sulfate 2.5 mg INHALATION QID PRN 04/18/21 05/02/21 Unknown History sildenafil 25 mg tablet 25 mg PO PRN PRN 04/18/21 05/02/21 Unknown History pirfenidone 801 mg tablet (Esbriet) 801 mg PO TID #90 tab 04/27/21 05/02/21 Unknown Rx apixaban 5 mg tablet (Eliquis) 2.5 mg PO BID 05/02/21 05/02/21 Unknown History ascorbic acid (vitamin C) 500 mg 500 mg PO BID #30 cap 05/10/21 Unknown Rx capsule,extended release ipratropium 0.5 mg-albuterol 3 mg 3 ml INHALATION TID #180 ml 05/10/21 Unknown Rx (2.5 mg base)/3 mL nebulization soln pantoprazole 40 mg tablet,delayed 40 mg PO DAILY #30 tab 05/10/21 Unknown Rx release prednisone 10 mg tablet See Rx Instructions .ROUTE 05/10/21 Unknown Rx .COMPLEX #90 tab zinc 50 mg tablet 50 mg PO DAILY #14 tab 05/10/21 Unknown Rx Allergies Allergy/AdvReac Type Severity Reaction Status Date / Time insect venom Allergy ALGY-Difficulty Verified 05/02/21 10:40 Swallowing Current Medications Generic Name Dose Route Start Last Admin Trade Name Freq PRN Reason Stop Dose Admin Albuterol/Ipratropium 3 ml 05/28/21 20:30 05/29/21 04:00 Ipratropium-Albuterol 3 Ml Neb INHALATION Not Given Q4H.RESPIRATORY ANISHA Piperacillin Sod/Tazobactam 50 mls @ 12.5 mls/hr 05/28/21 19:00 05/29/21 04:35 Sod 3.375 gm/ Sodium Chloride IV 12.5 mls/hr Q8H ANISHA Administration Protocol Vancomycin/PEG/NADA/Lysine/Water 1,250 mg in 250 mls @ 250 mls/hr 05/28/21 23:00 05/29/21 04:28 Vancocin IV Infused Q8H ANISHA Infusion Lorazepam 1 mg 05/28/21 17:50 05/28/21 21:57 Lorazepam 1 Mg Tablet PO 1 mg TID PRN Administration Anxiety Methylprednisolone Sodium Succinate 60 mg 05/29/21 02:00 05/29/21 03:04 Methylprednisolone Sod Succ 125 Mg/2 Ml Inj IVP 60 mg Q12H ANISHA Administration PFSH Acute PFSH: Medical History Abnormal stress test Acute and chronic respiratory failure with hypoxia 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 Aspergillosis Atrial tachycardia COPD (chronic obstructive pulmonary disease) Coronary artery disease Cubital tunnel syndrome on right Diabetes Diabetes Emphysema of lung Erectile dysfunction Gross hematuria High risk medication use Joint pain Left lower quadrant pain Obstructive sleep apnea P-ANCA titer positive Pneumocystis jiroveci pneumonia Pulmonary embolism Pulmonary interstitial fibrosis Pulmonary nodule Surgical absence of teeth SVT (supraventricular tachycardia) Tobacco abuse Urolithiasis Surgical History H/O neck surgery H/O: vasectomy History of ankle surgery History of dental surgery History of facial surgery History of lung biopsy S/P lobectomy of lung Family History Father , AT AGE 78 Cancer Hypertension Mother Diabetes Brother Diabetes Sister Diabetes Father Cancer Prostate Social History Quit status (tobacco): has quit using tobacco Year quit tobacco: 2020 - 2PPD x 40 Years Second hand smoke exposure: No Alcohol intake: never Marital status: Number of children: 3 Number of grandchildren: 4 Current occupational status: retired and disabled History of recent travel: No Dian/Quaker: Anabaptist Vitals/I&O/Wt Last Vital Signs Temp 97.6 F 05/29/21 04:00 Pulse 86 05/29/21 04:00 Resp 17 05/29/21 04:00 BP 96/61 05/29/21 04:00 Pulse Ox 100 05/29/21 04:00 05/28/21 05/28/21 05/29/21 14:59 22:59 06:59 Intake Total 1300 / 1300 Balance 1300 / 1300 Weight last 48 hrs Weight 267 lb 4 oz Weight 164 lb Data : 05/28/21 12:38 05/28/21 12:38 Coding Level of Care Code Acute Bilingual Receptionist for [facility]
[2021-05-29 06:54] LABS: Basophils % 0.2 %; Hematocrit 34.1 % (42.0-52.0); Hemoglobin 10.4 g/dL (11.7-16.6); Lymphocytes # 1.6 10^3/uL (0.8-4.8); Lymphocytes % 16.5 %; Mean Corpuscular HGB Conc 30.5 g/dL (30.0-36.0); Mean Corpuscular Hemoglobin 26.1 pg (28.0-34.0); Mean Corpuscular Volume 85.7 fl (80-94); Mean Platelet Volume 8.7 fL (7.4-10.4); Monocytes # 0.2 10^3/uL (0.2-0.9); Neutrophils # 7.49 10^3/uL (1.8-7.7); Neutrophils % 79.9 %; Nucleated Red Blood Cells % 0 %; Platelet Count 245 10^3/cmm (130-400); Red Blood Count 3.98 10^6/uL (4.1-5.3); Red Cell Distribution Width 17.6 % (12.1-15.1); White Blood Count 9.4 10^3/uL (4.0-10.0)
[2021-05-29 07:08] LABS: Alanine Aminotransferase 22 U/L (0-41); Albumin Level 3.1 g/dL (3.5-5.2); Alkaline Phosphatase 64 IU/L (40-130); Anion Gap 13.5 (5-19); Aspartate Amino Transferase 12 U/L (0-40); Blood Urea Nitrogen 16 mg/dL (8-23); Calcium 8.9 mg/dL (8.5-10.5); Carbon Dioxide 26 mmol/L (22-29); Chloride 100 mmol/L (98-107); Globulin 2.7 g/dL (1.3-4.6); Glomerular Filtration Rate 167.9 mL/min (90-130); Glucose 139 mg/dL (65-115); Osmolality Calculated 283 mOsm/kg (285-295); Potassium 4.5 mmol/L (3.5-5.1); Sodium 135 mmol/L (136-145); Total Bilirubin 0.2 mg/dL (0.15-1.2); Total Protein 5.8 g/dL (6.6-8.7)
[2021-05-29 07:15] LABS: Procalcitonin 0.04 ng/mL (0-0.5)
--- NOTE | 2021-05-29 07:36 | P.PN_ITS ---
Subjective Subjective: Seen and examined this morning, continues to have significant shortness of breath with minimal exertion. Medications: Medication Review Details: Generic Name Dose Route Start Last Admin Trade Name Kushalq PRN Reason Stop Dose Admin Albuterol/Ipratrop ium 3 ml 05/28/21 20:30 05/29/21 15:31 Ipratropium-Albu terol 3 Ml Neb INHALATION 3 ml Q4H.RESPIRATORY S CH Administration Apixaban 2.5 mg 05/29/21 09:00 05/29/21 08:10 Apixaban 5 Mg Ta blet PO 2.5 mg BID ANISHA Administration Atorvastatin Calci um 20 mg 05/29/21 09:00 05/29/21 08:10 Atorvastatin 40 Mg Tablet PO 20 mg DAILY ANISHA Administration Clopidogrel Bisulf ate 75 mg 05/29/21 09:00 05/29/21 08:10 Clopidogrel 75 M g Tablet PO 75 mg DAILY ANISHA Administration Escitalopram Oxala te 20 mg 05/29/21 09:00 05/29/21 08:11 Escitalopram 10 Mg Tablet PO 20 mg DAILY ANISHA Administration Piperacillin Sod/T azobactam 50 mls @ 12.5 mls /hr 05/28/21 19:00 05/29/21 15:46 Sod 3.375 gm/ So dium Chloride IV Infused Q8H ANISHA Infusion Protocol Vancomycin/PEG/NAD A/Lysine/Water 1,250 mg in 250 m ls @ 250 mls/hr 05/28/21 23:00 05/29/21 15:46 Vancocin IV 250 mls/hr Q8H ANISHA Administration Lorazepam 1 mg 05/28/21 17:50 05/28/21 21:57 Lorazepam 1 Mg T ablet PO 1 mg TID PRN Administration Anxiety Methylprednisolone Sodium Succinate 60 mg 05/29/21 02:00 05/29/21 14:02 Methylprednisolo ne Sod Succ 125 Mg /2 Ml Inj IVP 60 mg Q12H ANISHA Administration Non-Formulary Medi cation 801 mg 05/28/21 21:00 05/29/21 14:03 Pirfenidone [Esb riet] PO Not Given TID ANISHA Pantoprazole Sodiu m 40 mg 05/29/21 09:00 05/29/21 08:[address] 40 Mg Tablet PO 40 mg DAILY ANISHA Administration Vitals/I&O/Wt Last Vital Signs Temp 97.4 F L 05/29/21 07:25 Pulse 58 L 05/29/21 07:25 Resp 16 05/29/21 07:25 BP 107/76 05/29/21 07:25 Pulse Ox 94 05/29/21 07:25 05/28/21 05/29/21 05/29/21 22:59 06:59 14:59 Intake Total 1300 / 1300 Balance 1300 / 1300 Weight last 48 hrs Weight 121.223 kg Weight 74.389 kg Physical Exam Const: COMMON NORMALS: patient oriented x3 HENMT: COMMON NORMALS: normocephalic, atraumatic, hearing grossly normal bilaterally and external ears normal HEAD & SCALP: normocephalic and atraumatic EXTERNAL EAR: Yes external ears normal Eye: COMMON NORMALS: no scleral icterus GENERAL EYE: appearance normal, both eyes and all related structures Chest: COMMONS NORMALS: normal inspection of the chest and normal palpation of entire chest wall CHEST: Yes Symmetrical chest wall rise Resp: COMMON NORMALS: normal respiratory effort, No retractions, No use of accessory muscles and clear to auscultation bilaterally EFFORT & INSPECTION: Yes symmetric chest movement AUSCULTATION: clear to auscultation bilaterally OTHER: Bilateral inspiratory crackles present in both lung lieberman, use of accessory muscles of respiration, tachypneic Cardio: COMMON NORMALS: regular rate, regular rhythm, S1 normal heart sound present, S2 normal heart sound present, No gallops present (Cardio), No murmurs present (Cardio), No rub (Cardio) and Peripheral pulses 2+ throughout RATE: regular rate RHYTHM: regular rhythm HEART SOUNDS: S1 normal heart sound present and S2 normal heart sound present PERIPHERAL PULSES: Peripheral pulses 2+ throughout GI: COMMON NORMALS: Normal to inspection, nondistended, normoactive bowel sounds present, Soft to palpation, non-tender, No hepatosplenomegaly present and no masses AUSCULTATION: Yes normoactive bowel sounds PALPATION: Yes Soft to palpation and Yes No hepatosplenomegaly present RECTAL EXAM: Yes deferred Extremity: COMMON NORMALS: no clubbing, cyanosis or edema and no pedal edema Neuro: COMMON NORMALS: patient oriented x3 Data : 05/29/21 06:42 05/29/21 06:42 A&P Assessment and plan (1) Acute on chronic respiratory failure with hypoxia: Status: Acute (2) Idiopathic pulmonary fibrosis: Status: Acute (3) COPD (chronic obstructive pulmonary disease): Status: Acute (4) SVT (supraventricular tachycardia): Status: Acute (5) Interstitial lung disease: Status: Chronic (6) Coronary artery disease: Status: Chronic Qualifiers: Associated angina: with unspecified angina Coronary Disease-Associated Artery/Lesion type: [place] artery [place] vs. transplanted heart: [place] heart Qualified Code(s): I25.119 - Atherosclerotic heart disease of [place] coronary artery with unspecified angina pectoris Plan Assessment: #Acute on chronic hypoxic respiratory failure secondary to: IPF exacerbation, possibly secondary to underlying pneumonia: Patient came in with worsening shortness of breath, nonproductive cough, increasing supplemental oxygen requirement. Follow-up: MRSA PCR, sputum culture, blood culture, urine Legionella antigen, bacterial antigen panel. Continue to monitor x-ray chest , ABG. Continue broad-spectrum antibiotics (namely Vanco and Zosyn for now) Continue Solu-Medrol 60 mg IV twice daily DuoNebs Supplemental oxygen as needed Continue pirfenidone Continue antitussives #History of coronary artery disease: Continue statin , Eliquis , Plavix #History of IPF #History of ILD #History of COPD #DM :SSI , monitor fingerstick glucose, carb consistent diet CODE STATUS: Limited resuscitation DVT prophylaxis: Not needed on Eliquis #Disposition: Patient will need placement to LTAC for continued supervised pulmonary rehabilitation. Attestations Medical Necessity Statement*: Patient is IN hospital for management of acute on chronic hypoxic respiratory failure. Time Spent in Patient Care: Greater than 35 minutes (>than 50% of time spent in counselling and/or direct pt care on unit) . Coding Level of Care Code Acute Industrial/Organizational Psychologist for [facility] Fwd Exam Comprehensive Diagnoses Acute on chronic respiratory failure with hypoxia J96.21 Idiopathic pulmonary fibrosis J84.112 COPD (chronic obstructive pulmonary disease) J44.9 SVT (supraventricular tachycardia) I47.1 Interstitial lung disease J84.9 Coronary artery disease I25.119 Associated angina: with unspecified angina Coronary Disease-Associated Artery/Lesion type: [place] artery [place] vs. transplanted heart: [place] heart
[2021-05-29] MEDS: ipratropium-albuterol 3 mL Neb INHALATION ×4 (08:07→20:04)
[2021-05-29] MEDS: atorvastatin 40 mg Tablet 20 MG PO (08:10)
[2021-05-29] MEDS: clopidogrel 75 mg Tablet PO (08:10)
[2021-05-29] MEDS: apixaban 5 mg Tablet 2.5 MG PO ×2 (08:10→18:34)
[2021-05-29] MEDS: escitalopram 10 mg Tablet 20 MG PO (08:11)
[2021-05-29] MEDS: pantoprazole DR 40 mg Tablet PO (08:11)
--- NOTE | 2021-05-29 15:50 | PC.RESP ---
Ambulated pt at 1510. Pt walked 100 ft with 10 lpm reservoir cannula and 20 lpm NRB mask. Pt sat 92% before ambulation. walked 50 ft sat 88%. Sat 86% at 75ft. Pt sat 82% when reached his bed for walking total of 100 ft. Increased [place] cannula to 15 lpm to allow pt to improve sat and catch his breath. Pt sat improved to 92% with 15 lpm cannula and 20 lpm NRB mask. Took off NRB and decreased reservoir cannula to 8 lpm. Pt then given breathing tx. O2 sat 92% when tx finished.
[2021-05-29] MEDS: LORazepam 1 mg Tablet PO (21:29)
[2021-05-29 22:21] LABS: Vancomycin Trough 16.3 ug/mL (10-15)
[2021-05-30] VITALS (17 sets, daily range): BP systolic 97–129; BP diastolic 53–81; PULSE 93–115; RESP 16–22; TEMP 36.6–36.9; O2SAT 90–99
[2021-05-30] MEDS: ipratropium-albuterol 3 mL Neb INHALATION ×7 (01:46→23:58)
[2021-05-30] MEDS: piperacillin-tazobactam 3.375 GM in sodium chloride 0.9% (plus) 50 ML IV ×3 (03:01→18:39)
[2021-05-30 06:04] LABS: Basophils % 0.2 %; Hematocrit 32.7 % (42.0-52.0); Hemoglobin 10.2 g/dL (11.7-16.6); Lymphocytes # 0.9 10^3/uL (0.8-4.8); Lymphocytes % 8.7 %; Mean Corpuscular HGB Conc 31.2 g/dL (30.0-36.0); Mean Corpuscular Hemoglobin 26.1 pg (28.0-34.0); Mean Corpuscular Volume 83.6 fl (80-94); Mean Platelet Volume 8.5 fL (7.4-10.4); Monocytes # 0.6 10^3/uL (0.2-0.9); Monocytes % 5.7 %; Neutrophils # 8.65 10^3/uL (1.8-7.7); Neutrophils % 83.3 %; Nucleated Red Blood Cells % 0 %; Platelet Count 285 10^3/cmm (130-400); Red Blood Count 3.91 10^6/uL (4.1-5.3); White Blood Count 10.4 10^3/uL (4.0-10.0)
[2021-05-30 06:22] LABS: Anion Gap 13.1 (5-19); Blood Urea Nitrogen 17 mg/dL (8-23); Calcium 7.9 mg/dL (8.5-10.5); Carbon Dioxide 25 mmol/L (22-29); Chloride 101 mmol/L (98-107); Glomerular Filtration Rate 136.1 mL/min (90-130); Glucose 152 mg/dL (65-115); Osmolality Calculated 285 mOsm/kg (285-295); Potassium 4.1 mmol/L (3.5-5.1); Sodium 135 mmol/L (136-145)
[2021-05-30] MEDS: vancomycin 1,250 MG/250 ML PIGGYBACK 250 MG IV ×3 (07:08→22:51)
--- NOTE | 2021-05-30 08:23 | PC.PHAR ---
PTS DAUGHTER CHADWICK [phone] VERIFIED PTS MEDICATIONS
[2021-05-30] MEDS: clopidogrel 75 mg Tablet PO (09:22)
[2021-05-30] MEDS: apixaban 5 mg Tablet 2.5 MG PO ×2 (09:23→18:02)
[2021-05-30] MEDS: pantoprazole DR 40 mg Tablet PO (09:23)
[2021-05-30] MEDS: escitalopram 10 mg Tablet 20 MG PO (09:23)
[2021-05-30] MEDS: atorvastatin 40 mg Tablet 20 MG PO (09:23)
[2021-05-30] MEDS: PIRFENIDONE 801 MG 801 EACH PO ×2 (12:51→18:04)
--- NOTE | 2021-05-30 16:10 | PC.NURSE ---
Shower-hypoxia Patient assisted to shower. Stand by assist. Showered with nonrebreather mask. Was assisted back to bed. Oxygen level checked was 72% on 7L/NC. Was placed on nonrebreather mask. Oxygen level increased to 95% after 1 minute. Was placed back on 8L/NC. Patient had severe shortness of breath and increased work of breathing with activity.
--- NOTE | 2021-05-30 17:00 | P.PN_ITS ---
Subjective Subjective: Seen and examined this morning, currently on 8 to 10 L through pendent. Slowly supplemental oxygen requirement at rest is decreasing, continue to be significantly short of breath with exertion. Medications: Medication Review Details: Generic Name Dose Route Start Last Admin Trade Name Kushalq PRN Reason Stop Dose Admin Albuterol/Ipratrop ium 3 ml 05/28/21 20:30 05/29/21 15:31 Ipratropium-Albu terol 3 Ml Neb INHALATION 3 ml Q4H.RESPIRATORY S CH Administration Apixaban 2.5 mg 05/29/21 09:00 05/29/21 08:10 Apixaban 5 Mg Ta blet PO 2.5 mg BID ANISHA Administration Atorvastatin Calci um 20 mg 05/29/21 09:00 05/29/21 08:10 Atorvastatin 40 Mg Tablet PO 20 mg DAILY ANISHA Administration Clopidogrel Bisulf ate 75 mg 05/29/21 09:00 05/29/21 08:10 Clopidogrel 75 M g Tablet PO 75 mg DAILY ANISHA Administration Escitalopram Oxala te 20 mg 05/29/21 09:00 05/29/21 08:11 Escitalopram 10 Mg Tablet PO 20 mg DAILY ANISHA Administration Piperacillin Sod/T azobactam 50 mls @ 12.5 mls /hr 05/28/21 19:00 05/29/21 15:46 Sod 3.375 gm/ So dium Chloride IV Infused Q8H ANISHA Infusion Protocol Vancomycin/PEG/NAD A/Lysine/Water 1,250 mg in 250 m ls @ 250 mls/hr 05/28/21 23:00 05/29/21 15:46 Vancocin IV 250 mls/hr Q8H ANISHA Administration Lorazepam 1 mg 05/28/21 17:50 05/28/21 21:57 Lorazepam 1 Mg T ablet PO 1 mg TID PRN Administration Anxiety Methylprednisolone Sodium Succinate 60 mg 05/29/21 02:00 05/29/21 14:02 Methylprednisolo ne Sod Succ 125 Mg /2 Ml Inj IVP 60 mg Q12H ANISHA Administration Non-Formulary Medi cation 801 mg 05/28/21 21:00 05/29/21 14:03 Pirfenidone [Esb riet] PO Not Given TID ANISHA Pantoprazole Sodiu m 40 mg 05/29/21 09:00 05/29/21 08:[address] 40 Mg Tablet PO 40 mg DAILY ANISHA Administration Vitals/I&O/Wt Last Vital Signs Temp 97.9 F 05/30/21 12:00 Pulse 111 H 05/30/21 16:06 Resp 22 H 05/30/21 16:06 BP 103/71 05/30/21 12:00 Pulse Ox 95 05/30/21 16:06 05/30/21 05/30/21 05/30/21 06:59 14:59 22:59 Intake Total 300 / 1430 1186 / 1186 Output Total 400 / 1950 250 / 250 Balance -100 / -520 936 / 936 Weight last 48 hrs Weight 121.223 kg Physical Exam Const: COMMON NORMALS: patient oriented x3 HENMT: COMMON NORMALS: normocephalic, atraumatic, hearing grossly normal bilaterally and external ears normal HEAD & SCALP: normocephalic and atraumatic EXTERNAL EAR: Yes external ears normal Eye: COMMON NORMALS: no scleral icterus GENERAL EYE: appearance normal, both eyes and all related structures Chest: COMMONS NORMALS: normal inspection of the chest and normal palpation of entire chest wall CHEST: Yes Symmetrical chest wall rise Resp: COMMON NORMALS: normal respiratory effort, No retractions, No use of accessory muscles and clear to auscultation bilaterally EFFORT & INSPECTION: Yes symmetric chest movement AUSCULTATION: clear to auscultation bilaterally OTHER: Bilateral inspiratory crackles present in both lung lieberman, use of accessory muscles of respiration, tachypneic Cardio: COMMON NORMALS: regular rate, regular rhythm, S1 normal heart sound present, S2 normal heart sound present, No gallops present (Cardio), No murmurs present (Cardio), No rub (Cardio) and Peripheral pulses 2+ throughout RATE: regular rate RHYTHM: regular rhythm HEART SOUNDS: S1 normal heart sound present and S2 normal heart sound present PERIPHERAL PULSES: Peripheral pulses 2+ throughout GI: COMMON NORMALS: Normal to inspection, nondistended, normoactive bowel sounds present, Soft to palpation, non-tender, No hepatosplenomegaly present and no masses AUSCULTATION: Yes normoactive bowel sounds PALPATION: Yes Soft to palpation and Yes No hepatosplenomegaly present RECTAL EXAM: Yes deferred Extremity: COMMON NORMALS: no clubbing, cyanosis or edema and no pedal edema Neuro: COMMON NORMALS: patient oriented x3 Data : 02/16/22 05:22 05/30/21 05:22 Micro: Microbiology 05/28/21 18:33 MRSA Culture - Final Nose A&P Assessment and plan (1) Acute on chronic respiratory failure with hypoxia: Status: Acute (2) Idiopathic pulmonary fibrosis: Status: Acute (3) COPD (chronic obstructive pulmonary disease): Status: Acute (4) SVT (supraventricular tachycardia): Status: Acute (5) Interstitial lung disease: Status: Chronic (6) Coronary artery disease: Status: Chronic Qualifiers: Associated angina: with unspecified angina Coronary Disease-Associated Artery/Lesion type: [place] artery [place] vs. transplanted heart: [place] heart Qualified Code(s): I25.119 - Atherosclerotic heart disease of [place] coronary artery with unspecified angina pectoris Plan Assessment: #Acute on chronic hypoxic respiratory failure secondary to: IPF exacerbation, possibly secondary to underlying pneumonia: Patient came in with worsening shortness of breath, nonproductive cough, inc reasing supplemental oxygen requirement. Follow-up: MRSA PCR:Negative sputum culture, blood culture, urine Legionella antigen, bacterial antigen panel. Continue to monitor x-ray chest , ABG. Continue broad-spectrum antibiotics (namely Vanco and Zosyn for now) Continue Solu-Medrol 60 mg IV twice daily DuoNebs Supplemental oxygen as needed Continue pirfenidone Continue antitussives #History of coronary artery disease: Continue statin , Eliquis , Plavix #History of IPF #History of ILD #History of COPD #DM :SSI , monitor fingerstick glucose, carb consistent diet CODE STATUS: Limited resuscitation DVT prophylaxis: Not needed on Eliquis #Disposition: Patient will need placement to LTAC for continued supervised pulmonary rehabilitation. Attestations Medical Necessity Statement*: Patient is to be in hospital for management of acute on chronic respiratory failure. Coding Level of Care Code Acute Escapement Matcher for [facility] Fwd Exam Comprehensive Diagnoses Acute on chronic respiratory failure with hypoxia J96.21 Idiopathic pulmonary fibrosis J84.112 COPD (chronic obstructive pulmonary disease) J44.9 SVT (supraventricular tachycardia) I47.1 Interstitial lung disease J84.9 Coronary artery disease I25.119 Associated angina: with unspecified angina Coronary Disease-Associated Artery/Lesion type: [place] artery [place] vs. transplanted heart: [place] heart
[2021-05-30] MEDS: acetaminophen 325 mg Tablet 650 MG PO (20:39)
--- NOTE | 2021-05-30 21:08 | PC.NURSE ---
i reported high pulse 107 to nurse
[2021-05-30] MEDS: LORazepam 1 mg Tablet PO (21:51)
[2021-05-30] MEDS: cyclobenzaprine 10 mg Tablet 5 MG PO (21:51)
[2021-05-31] VITALS (18 sets, daily range): BP systolic 114–130; BP diastolic 70–84; PULSE 88–114; RESP 17–20; TEMP 36.4–36.8; O2SAT 90–100
[2021-05-31] MEDS: piperacillin-tazobactam 3.375 GM in sodium chloride 0.9% (plus) 50 ML IV ×3 (02:35→18:12)
[2021-05-31] MEDS: ipratropium-albuterol 3 mL Neb INHALATION ×6 (03:32→23:32)
[2021-05-31 06:15] LABS: Basophils % 0.2 %; Hematocrit 31.5 % (42.0-52.0); Hemoglobin 9.8 g/dL (11.7-16.6); Lymphocytes % 9.5 %; Mean Corpuscular HGB Conc 31.1 g/dL (30.0-36.0); Mean Corpuscular Hemoglobin 25.3 pg (28.0-34.0); Mean Corpuscular Volume 81.4 fl (80-94); Mean Platelet Volume 8.6 fL (7.4-10.4); Monocytes # 0.7 10^3/uL (0.2-0.9); Neutrophils # 8.15 10^3/uL (1.8-7.7); Neutrophils % 79.1 %; Nucleated Red Blood Cells % 0 %; Platelet Count 303 10^3/cmm (130-400); Red Blood Count 3.87 10^6/uL (4.1-5.3); Red Cell Distribution Width 17.9 % (12.1-15.1); White Blood Count 10.3 10^3/uL (4.0-10.0)
[2021-05-31 06:31] LABS: Blood Urea Nitrogen 17 mg/dL (8-23); Calcium 8.4 mg/dL (8.5-10.5); Carbon Dioxide 26 mmol/L (22-29); Chloride 102 mmol/L (98-107); Glomerular Filtration Rate 167.9 mL/min (90-130); Glucose 133 mg/dL (65-115); Osmolality Calculated 285 mOsm/kg (285-295); Sodium 136 mmol/L (136-145)
[2021-05-31] MEDS: vancomycin 1,250 MG/250 ML PIGGYBACK 250 MG IV (06:34)
[2021-05-31] MEDS: PIRFENIDONE 801 MG 801 EACH PO ×3 (07:39→17:41)
[2021-05-31] MEDS: pantoprazole DR 40 mg Tablet PO (07:40)
[2021-05-31] MEDS: clopidogrel 75 mg Tablet PO (07:40)
[2021-05-31] MEDS: escitalopram 10 mg Tablet 20 MG PO (07:40)
[2021-05-31] MEDS: apixaban 5 mg Tablet 2.5 MG PO ×2 (07:40→17:41)
[2021-05-31] MEDS: atorvastatin 40 mg Tablet 20 MG PO (07:40)
--- NOTE | 2021-05-31 09:30 | PC.CHAP ---
Pastoral Care Encounter/Spiritual Assessment Type of Contact [] Declined sheet fed printer visit [] Patient/Family/Request visit [] Outpatient visit [] Follow-up visit [] Physician referral [] Code/Alert [x] Routine visit [] Staff referral [] Actively dying [] Patient sleeping [] Family support [] [] Out of room [] Palliative care [] [] Receiving care in room [] Pre-surgical visit [] Trauma [] Long length of stay [] ICU visit [] Other: Relational/Emotional Strength [x] Patient feels connected with others/family/visitors/staff [] Distress [] Loneliness/isolation [] Abandonment Spirituality of Patient [x] Person of Dian [x] Attends Gnosticism of their Dian [x] Believes in Prayer []x Reads Bible or Amish materials [] There are Spiritual issues to be addressed Benefit Authorizer Interventions [x] Prayer [x] Active listening [x] Non-anxious presence [x] Spiritual/emotional support [] Crisis/trauma care [] Spiritual counseling [] Bereavement support [] Provided bereavement packet [] Provided Bible/devotional materials [] Provided toy/stuffed animal, coloring book to patient or family member [] Provided Communion [] Anointing/[place] [] Salvation [] Completed spiritual assessment [] Other: Impact on Illness or Injury [] Angry [] Fearful [] Anxious [] Often cries [] Exhaustion [] Unable to work [] Unable to attend faith [] Unable to walk/stand [] Unable to read [] Unable to drive [] Unable to eat/drink [] Unable to sleep [] Unable to be with family [] Patient intubated [] Other: Summary Time spent with patient 15 min
--- NOTE | 2021-05-31 15:45 | PM.PN ---
Subjective Subjective: Seen and examined this morning, currently on 8 to 10 L through pendent.No acute event overnight. Medications: Medication Review Details: Generic Name Dose Route Start Last Admin Trade Name Les PRN Reason Stop Dose Admin Albuterol/Ipratrop ium 3 ml 05/28/21 20:30 05/29/21 15:31 Ipratropium-Albu terol 3 Ml Neb INHALATION 3 ml Q4H.RESPIRATORY S CH Administration Apixaban 2.5 mg 05/29/21 09:00 05/29/21 08:10 Apixaban 5 Mg Ta blet PO 2.5 mg BID ANISHA Administration Atorvastatin Calci um 20 mg 05/29/21 09:00 05/29/21 08:10 Atorvastatin 40 Mg Tablet PO 20 mg DAILY ANISHA Administration Clopidogrel Bisulf ate 75 mg 05/29/21 09:00 05/29/21 08:10 Clopidogrel 75 M g Tablet PO 75 mg DAILY ANISHA Administration Escitalopram Oxala te 20 mg 05/29/21 09:00 05/29/21 08:11 Escitalopram 10 Mg Tablet PO 20 mg DAILY ANISHA Administration Piperacillin Sod/T azobactam 50 mls @ 12.5 mls /hr 05/28/21 19:00 05/29/21 15:46 Sod 3.375 gm/ So dium Chloride IV Infused Q8H ANISHA Infusion Protocol Vancomycin/PEG/NAD A/Lysine/Water 1,250 mg in 250 m ls @ 250 mls/hr 05/28/21 23:00 05/29/21 15:46 Vancocin IV 250 mls/hr Q8H ANISHA Administration Lorazepam 1 mg 05/28/21 17:50 05/28/21 21:57 Lorazepam 1 Mg T ablet PO 1 mg TID PRN Administration Anxiety Methylprednisolone Sodium Succinate 60 mg 05/29/21 02:00 05/29/21 14:02 Methylprednisolo ne Sod Succ 125 Mg /2 Ml Inj IVP 60 mg Q12H ANISHA Administration Non-Formulary Medi cation 801 mg 05/28/21 21:00 05/29/21 14:03 Pirfenidone [Esb riet] PO Not Given TID ANISHA Pantoprazole Sodiu m 40 mg 05/29/21 09:00 05/29/21 08:[address] 40 Mg Tablet PO 40 mg DAILY ANISHA Administration Vitals/I&O/Wt Last Vital Signs Temp 98.2 F 05/31/21 12:00 Pulse 114 H 05/31/21 12:00 Resp 18 05/31/21 12:00 BP 129/82 05/31/21 12:00 Pulse Ox 90 05/31/21 12:00 05/31/21 05/31/21 05/31/21 06:59 14:59 22:59 Intake Total 300 / 1786 970 / 970 Output Total 580 / 1170 125 / 125 Balance -280 / 616 845 / 845 Physical Exam Const: COMMON NORMALS: patient oriented x3 HENMT: COMMON NORMALS: normocephalic, atraumatic, hearing grossly normal bilaterally and external ears normal HEAD & SCALP: normocephalic and atraumatic EXTERNAL EAR: Yes external ears normal Eye: COMMON NORMALS: no scleral icterus GENERAL EYE: appearance normal, both eyes and all related structures Chest: COMMONS NORMALS: normal inspection of the chest and normal palpation of entire chest wall CHEST: Yes Symmetrical chest wall rise Resp: COMMON NORMALS: normal respiratory effort, No retractions, No use of accessory muscles and clear to auscultation bilaterally EFFORT & INSPECTION: Yes symmetric chest movement AUSCULTATION: clear to auscultation bilaterally OTHER: Bilateral inspiratory crackles present in both lung [place], Cardio: COMMON NORMALS: regular rate, regular rhythm, S1 normal heart sound present, S2 normal heart sound present, No gallops present (Cardio), No murmurs present (Cardio), No rub (Cardio) and Peripheral pulses 2+ throughout RATE: regular rate RHYTHM: regular rhythm HEART SOUNDS: S1 normal heart sound present and S2 normal heart sound present PERIPHERAL PULSES: Peripheral pulses 2+ throughout GI: COMMON NORMALS: Normal to inspection, nondistended, normoactive bowel sounds present, Soft to palpation, non-tender, No hepatosplenomegaly present and no masses AUSCULTATION: Yes normoactive bowel sounds PALPATION: Yes Soft to palpation and Yes No hepatosplenomegaly present RECTAL EXAM: Yes deferred Extremity: COMMON NORMALS: no clubbing, cyanosis or edema and no pedal edema Neuro: COMMON NORMALS: patient oriented x3 Data : 05/31/21 05:14 05/31/21 05:14 Micro: Microbiology 05/30/21 18:42 Legionella Urinary Antigen - Final Urine,Clean Catch Bacterial Antigens - Final A&P Assessment and plan (1) Acute on chronic respiratory failure with hypoxia: Status: Acute (2) Idiopathic pulmonary fibrosis: Status: Acute (3) COPD (chronic obstructive pulmonary disease): Status: Acute (4) SVT (supraventricular tachycardia): Status: Acute (5) Interstitial lung disease: Status: Chronic (6) Coronary artery disease: Status: Chronic Qualifiers: Associated angina: with unspecified angina Coronary Disease-Associated Artery/Lesion type: [place] artery [place] vs. transplanted heart: [place] heart Qualified Code(s): I25.119 - Atherosclerotic heart disease of [place] coronary artery with unspecified angina pectoris Plan Assessment: #Acute on chronic hypoxic respiratory failure secondary to: IPF exacerbation, possibly secondary to underlying pneumonia: Patient came in with worsening shortness of breath, nonproductive cough, increasing supplemental oxygen requirement. Follow-up: MRSA PCR:Negative sputum culture, blood culture, urine Legionella antigen: Negative bacterial antigen panel: Negative Continue to monitor x-ray chest , ABG. Continue broad-spectrum antibiotics (namely Vanco and Zosyn for now) Continue Solu-Medrol 60 mg IV twice daily DuoNebs Supplemental oxygen as needed Continue pirfenidone Continue antitussives #History of coronary artery disease: Continue statin , Eliquis , Plavix #History of IPF #History of ILD #History of COPD #DM :SSI , monitor fingerstick glucose, carb consistent diet CODE STATUS: Limited resuscitation DVT prophylaxis: Not needed on Eliquis #Disposition: Patient will need placement to LTAC for continued supervised pulmonary rehabilitation. Attestations Medical Necessity Statement*: Patient needs to be in hospital for management of acute on chronic respiratory failure Coding Level of Care Code Acute Surveying Crew Stake Runner for [facility] Fwd Exam Comprehensive Diagnoses Acute on chronic respiratory failure with hypoxia J96.21 Idiopathic pulmonary fibrosis J84.112 COPD (chronic obstructive pulmonary disease) J44.9 SVT (supraventricular tachycardia) I47.1 Interstitial lung disease J84.9 Coronary artery disease I25.119 Associated angina: with unspecified angina Coronary Disease-Associated Artery/Lesion type: [place] artery [place] vs. transplanted heart: [place] heart
[2021-05-31] MEDS: acetaminophen 325 mg Tablet 650 MG PO (17:43)
[2021-05-31] MEDS: cyclobenzaprine 10 mg Tablet PO (21:08)
[2021-05-31] MEDS: LORazepam 1 mg Tablet PO (21:08)
[2021-05-31] MEDS: benzonatate 100 mg Capsule PO (21:08)
[2021-06-01] VITALS (19 sets, daily range): BP systolic 114–130; BP diastolic 70–85; PULSE 76–123; RESP 18–22; TEMP 36.4–36.7; O2SAT 91–98
[2021-06-01] MEDS: piperacillin-tazobactam 3.375 GM in sodium chloride 0.9% (plus) 50 ML IV ×3 (02:32→18:53)
[2021-06-01] MEDS: ipratropium-albuterol 3 mL Neb INHALATION ×5 (03:28→21:06)
[2021-06-01] MEDS: PIRFENIDONE 801 MG 801 EACH PO ×3 (08:48→18:53)
[2021-06-01] MEDS: escitalopram 10 mg Tablet 20 MG PO (08:49)
[2021-06-01] MEDS: pantoprazole DR 40 mg Tablet PO (08:49)
[2021-06-01] MEDS: atorvastatin 40 mg Tablet 20 MG PO (08:49)
[2021-06-01] MEDS: clopidogrel 75 mg Tablet PO (08:50)
[2021-06-01] MEDS: apixaban 5 mg Tablet 2.5 MG PO ×2 (08:50→18:53)
--- NOTE | 2021-06-01 18:30 | PM.PN ---
Subjective Subjective: Seen and examined this morning, supplemental oxygen requirement slowly going down,still has significant desaturation with exertion. Medications: Medication Review Details: Generic Name Dose Route Start Last Admin Trade Name Les PRN Reason Stop Dose Admin Albuterol/Ipratrop ium 3 ml 05/28/21 20:30 05/29/21 15:31 Ipratropium-Albu terol 3 Ml Neb INHALATION 3 ml Q4H.RESPIRATORY S CH Administration Apixaban 2.5 mg 05/29/21 09:00 05/29/21 08:10 Apixaban 5 Mg Ta blet PO 2.5 mg BID ANISHA Administration Atorvastatin Calci um 20 mg 05/29/21 09:00 05/29/21 08:10 Atorvastatin 40 Mg Tablet PO 20 mg DAILY ANISHA Administration Clopidogrel Bisulf ate 75 mg 05/29/21 09:00 05/29/21 08:10 Clopidogrel 75 M g Tablet PO 75 mg DAILY ANISHA Administration Escitalopram Oxala te 20 mg 05/29/21 09:00 05/29/21 08:11 Escitalopram 10 Mg Tablet PO 20 mg DAILY ANISHA Administration Piperacillin Sod/T azobactam 50 mls @ 12.5 mls /hr 05/28/21 19:00 05/29/21 15:46 Sod 3.375 gm/ So dium Chloride IV Infused Q8H ANISHA Infusion Protocol Vancomycin/PEG/NAD A/Lysine/Water 1,250 mg in 250 m ls @ 250 mls/hr 05/28/21 23:00 05/29/21 15:46 Vancocin IV 250 mls/hr Q8H ANISHA Administration Lorazepam 1 mg 05/28/21 17:50 05/28/21 21:57 Lorazepam 1 Mg T ablet PO 1 mg TID PRN Administration Anxiety Methylprednisolone Sodium Succinate 60 mg 05/29/21 02:00 05/29/21 14:02 Methylprednisolo ne Sod Succ 125 Mg /2 Ml Inj IVP 60 mg Q12H ANISHA Administration Non-Formulary Medi cation 801 mg 05/28/21 21:00 05/29/21 14:03 Pirfenidone [Esb riet] PO Not Given TID ANISHA Pantoprazole Sodiu m 40 mg 05/29/21 09:00 05/29/21 08:[address] 40 Mg Tablet PO 40 mg DAILY ANISHA Administration Vitals/I&O/Wt Last Vital Signs Temp 98.0 F 06/01/21 15:59 Pulse 103 H 06/01/21 15:59 Resp 18 06/01/21 15:59 BP 114/70 06/01/21 15:59 Pulse Ox 92 06/01/21 15:59 06/01/21 06/01/21 06/01/21 06:59 14:59 22:59 Intake Total 290 / 290 Output Total 910 / 1575 250 / 250 300 / 550 Balance -910 / 215 40 / 40 -300 / -260 Physical Exam Const: COMMON NORMALS: patient oriented x3 HENMT: COMMON NORMALS: normocephalic, atraumatic, hearing grossly normal bilaterally and external ears normal HEAD & SCALP: normocephalic and atraumatic EXTERNAL EAR: Yes external ears normal Eye: COMMON NORMALS: no scleral icterus GENERAL EYE: appearance normal, both eyes and all related structures Chest: COMMONS NORMALS: normal inspection of the chest and normal palpation of entire chest wall CHEST: Yes Symmetrical chest wall rise Resp: COMMON NORMALS: normal respiratory effort, No retractions, No use of accessory muscles and clear to auscultation bilaterally EFFORT & INSPECTION: Yes symmetric chest movement AUSCULTATION: clear to auscultation bilaterally OTHER: Bilateral inspiratory crackles present in both lung [place], Cardio: COMMON NORMALS: regular rate, regular rhythm, S1 normal heart sound present, S2 normal heart sound present, No gallops present (Cardio), No murmurs present (Cardio), No rub (Cardio) and Peripheral pulses 2+ throughout RATE: regular rate RHYTHM: regular rhythm HEART SOUNDS: S1 normal heart sound present and S2 normal heart sound present PERIPHERAL PULSES: Peripheral pulses 2+ throughout GI: COMMON NORMALS: Normal to inspection, nondistended, normoactive bowel sounds present, Soft to palpation, non-tender, No hepatosplenomegaly present and no masses AUSCULTATION: Yes normoactive bowel sounds PALPATION: Yes Soft to palpation and Yes No hepatosplenomegaly present RECTAL EXAM: Yes deferred Extremity: COMMON NORMALS: no clubbing, cyanosis or edema and no pedal edema Neuro: COMMON NORMALS: patient oriented x3 Data : 05/31/21 05:14 05/31/21 05:14 Micro: Microbiology 05/31/21 14:30 Sputum Culture - Preliminary Sputum - Expectorated Sputum A&P Assessment and plan (1) Acute on chronic respiratory failure with hypoxia: Status: Acute (2) Idiopathic pulmonary fibrosis: Status: Acute (3) COPD (chronic obstructive pulmonary disease): Status: Acute (4) SVT (supraventricular tachycardia): Status: Acute (5) Interstitial lung disease: Status: Chronic (6) Coronary artery disease: Status: Chronic Qualifiers: Coronary Disease-Associated Artery/Lesion type: [place] artery [place] vs. transplanted heart: [place] heart Associated angina: with unspecified angina Qualified Code(s): I25.119 - Atherosclerotic heart disease of [place] coronary artery with unspecified angina pectoris Plan Assessment: #Acute on chronic hypoxic respiratory failure secondary to: IPF exacerbation, possibly secondary to underlying pneumonia: Patient came in with worsening shortness of breath, nonproductive cough, increasing supplemental oxygen requirement. Follow-up: MRSA PCR:Negative sputum culture, blood culture:Negative urine Legionella antigen: Negative bacterial antigen panel: Negative Continue to monitor x-ray chest , ABG. Continue broad-spectrum antibiotics (namely Vanco and Zosyn for now) Continue Solu-Medrol 60 mg IV twice daily DuoNebs Supplemental oxygen as needed Continue pirfenidone Continue antitussives #History of coronary artery disease: Continue statin , Eliquis , Plavix #History of IPF #History of ILD #History of COPD #DM :SSI , monitor fingerstick glucose, carb consistent diet CODE STATUS: Limited resuscitation DVT prophylaxis: Not needed on Eliquis #Disposition: Patient will need placement to LTAC for continued supervised pulmonary rehabilitation. Attestations Medical Necessity Statement*: Patient needs to be in hospital for management of acute on chronic respiratory failure. Coding Level of Care Code Acute Oncology Social Work for [facility] Diagnoses Acute on chronic respiratory failure with hypoxia J96.21 Idiopathic pulmonary fibrosis J84.112 COPD (chronic obstructive pulmonary disease) J44.9 SVT (supraventricular tachycardia) I47.1 Interstitial lung disease J84.9 Coronary artery disease I25.119 Coronary Disease-Associated Artery/Lesion type: [place] artery [place] vs. transplanted heart: [place] heart Associated angina: with unspecified angina
[2021-06-01] MEDS: cyclobenzaprine 10 mg Tablet PO (20:53)
[2021-06-01] MEDS: LORazepam 1 mg Tablet PO (20:54)
[2021-06-02] VITALS (12 sets, daily range): BP systolic 106–131; BP diastolic 63–92; PULSE 90–120; RESP 15–21; TEMP 36.4–36.6; O2SAT 91–99
[2021-06-02] MEDS: ipratropium-albuterol 3 mL Neb INHALATION ×4 (00:17→11:20)
[2021-06-02] MEDS: piperacillin-tazobactam 3.375 GM in sodium chloride 0.9% (plus) 50 ML IV ×2 (02:18→11:38)
[2021-06-02] MEDS: PIRFENIDONE 801 MG 801 EACH PO ×2 (08:18→11:39)
[2021-06-02] MEDS: atorvastatin 40 mg Tablet 20 MG PO (08:19)
[2021-06-02] MEDS: pantoprazole DR 40 mg Tablet PO (08:19)
[2021-06-02] MEDS: clopidogrel 75 mg Tablet PO (08:19)
[2021-06-02] MEDS: apixaban 5 mg Tablet 2.5 MG PO (08:19)
[2021-06-02] MEDS: escitalopram 10 mg Tablet 20 MG PO (08:19)
[2021-06-02 08:44] LABS: Basophils # 0.1 10^3/uL (0.0-0.1); Basophils % 0.7 %; Hematocrit 37.4 % (42.0-52.0); Hemoglobin 11.5 g/dL (11.7-16.6); Lymphocytes # 1.6 10^3/uL (0.8-4.8); Lymphocytes % 15.1 %; Mean Corpuscular HGB Conc 30.7 g/dL (30.0-36.0); Mean Corpuscular Hemoglobin 25.6 pg (28.0-34.0); Mean Corpuscular Volume 83.1 fl (80-94); Mean Platelet Volume 8.6 fL (7.4-10.4); Monocytes # 0.5 10^3/uL (0.2-0.9); Monocytes % 4.3 %; Neutrophils # 7.84 10^3/uL (1.8-7.7); Nucleated Red Blood Cells % 0.2 %; Platelet Count 377 10^3/cmm (130-400); Red Cell Distribution Width 17.9 % (12.1-15.1); White Blood Count 10.6 10^3/uL (4.0-10.0)
[2021-06-02 08:50] LABS: Neutrophils % 79.9 %
[2021-06-02 09:01] LABS: Anion Gap 12.4 (5-19); Blood Urea Nitrogen 19 mg/dL (8-23); Calcium 9.1 mg/dL (8.5-10.5); Carbon Dioxide 28 mmol/L (22-29); Chloride 95 mmol/L (98-107); Glomerular Filtration Rate 167.9 mL/min (90-130); Glucose 160 mg/dL (65-115); Osmolality Calculated 278 mOsm/kg (285-295); Potassium 4.4 mmol/L (3.5-5.1); Sodium 131 mmol/L (136-145)
--- NOTE | 2021-06-02 11:11 | P.TS_ITS ---
Transfer Summary Providers Date of Admission: 05/28/21 13:40 Date of Discharge/Transfer: 06/02/21 Attending Provider at Admission: Willian Perez MD Attending Provider at Transfer: Willian Perez MD Primary Care Provider: Daniel Nogueira DO Transfer Plans: Anticipated date of transfer: 06/02/21 . Diagnoses at Discharge Discharge Diagnosis (1) Acute on chronic respiratory failure with hypoxia: Status: Acute (2) Idiopathic pulmonary fibrosis: Status: Acute (3) COPD (chronic obstructive pulmonary disease): Status: Acute (4) SVT (supraventricular tachycardia): Status: Acute (5) Interstitial lung disease: Status: Chronic (6) Coronary artery disease: Status: Chronic Qualifiers: Coronary Disease-Associated Artery/Lesion type: [place] artery [place] vs. transplanted heart: [place] heart Associated angina: with unspecified angina Qualified Code(s): I25.119 - Atherosclerotic heart disease of [place] coronary artery with unspecified angina pectoris Reason for Visit Reason for Visit sent from Dr. sabillon office due to o2 Hospital Course Hospital Course 65 year old male with past medical history of coronary artery disease,IPF, COPD on 8 LS? home oxygen, throat pendant, currently awaiting lung transplant at [facility],? diabetes, PHT , recent history of COVID-19 pneumonia, was here today for his outpatient Pulmonary follow-up, was sent to ER from there is a supplemental oxygen requirement was much higher than his baseline. Currently patient is saying that since his discharge after being managed for COVID-19 pneumonia on 05/10, his shortness of breath Has continued to worsen, currently short of breath with minimal exertion, he is short of breath even while moving bare minimum at his home, his supplemental oxygen requirement has also gone up, shortness of breath is accompanied with nonproductive cough.Patient was admitted for the management of Acute on chronic hypoxic respiratory failure secondary to: IPF exacerbation, possibly secondary to underlying pneumonia: CTA chest:??No evidence of pulmonary embolus. Enlarged main pulmonary arteries c an be seen with pulmonary arterial hypertension.Evidence of idiopathic pulmonary fibrosis unchanged since the prior examinations. Sputum culture: Moderate mixed upper respiratory max, urine Legionella antigen and bacterial antigen panel was negative MRSA PCR was negative, patient was kept on IV steroids, empirically on broad- spectrum antibiotics, other conservative respiratory support measures ( supplemental oxygen as needed, duo nebs, he was continued on pirfenidone ), patient continues to have Significant shortness of breath even with minimal exertion, and with activities of daily life, at rest his supplemental oxygen requirement has been slowly progressing towards the baseline, but the problem is significant desaturation with minimal Exertion.He was being transferred to LT for further pulmonary rehabilitation, as he needs continued pulmonary rehabilitation, as he is not safe to be discharged home. At the time of discharge he was continued on prednisone 40 mg p.o. daily for another 7 days, he was continued on Bactrim which have been started by his cook helper dessert as an outpatient for PCP.Patient is being transferred to LT for continued care, Physical Exam Const: COMMON NORMALS: patient oriented x3 HENMT: COMMON NORMALS: normocephalic and atraumatic HEAD & SCALP: normocephalic and atraumatic Eye: COMMON NORMALS: no scleral icterus GENERAL EYE: appearance normal, both eyes and all related structures Chest: COMMONS NORMALS: normal inspection of the chest and normal palpation of entire chest wall CHEST: Yes Symmetrical chest wall rise OTHER: Bilateral inspiratory crackles present in both the lung field, use of accessory muscles of respiration, Resp: EFFORT & INSPECTION: Yes symmetric chest movement Cardio: COMMON NORMALS: regular rate, regular rhythm, S1 normal heart sound present, S2 normal heart sound present, No gallops present (Cardio), No murmurs present (Cardio), No rub (Cardio) and Peripheral pulses 2+ throughout RATE: regular rate RHYTHM: regular rhythm HEART SOUNDS: S1 normal heart sound present and S2 normal heart sound present PERIPHERAL PULSES: Peripheral pulses 2+ throughout GI: COMMON NORMALS: Normal to inspection, nondistended, normoactive bowel sounds present, Soft to palpation, non-tender, No hepatosplenomegaly present and no masses AUSCULTATION: Yes normoactive bowel sounds PALPATION: Yes Soft to palpation and Yes No hepatosplenomegaly present RECTAL EXAM: Yes deferred Extremity: COMMON NORMALS: no clubbing, cyanosis or edema and no pedal edema Neuro: COMMON NORMALS: patient oriented x3 TS Data Studies Completed and Pending Pending at discharge Category Date Time Status BMP [Basic Metabolic Panel] AM LABS Lab 06/03/21 04:00 Ordered BMP [Basic Metabolic Panel] AM LABS Lab 06/04/21 04:00 Ordered BMP [Basic Metabolic Panel] AM LABS Lab 06/05/21 04:00 Ordered CBC Auto Diff [Complete Blood Count w/Auto] AM LABS Lab 06/03/21 04:00 Ordered Interleukin 6 (IL-6) Serum Stat Lab 05/28/21 12:38 Received Labs from last 24 hours 06/02/21 06/02/21 08:29 08:29 WBC 10.6 H RBC 4.50 Hgb 11.5 L Hct 37.4 L MCV 83.1 MCH 25.6 L MCHC 30.7 RDW 17.9 H Plt Count 377 MPV 8.6 Neut % (Auto) 79.9 Lymph % (Auto) 15.1 [place] % (Auto) 4.3 Eos % (Auto) 0.0 Baso % (Auto) 0.7 Neut # (Auto) 7.84 H Lymph # (Auto) 1.6 [place] # (Auto) 0.5 Eos # (Auto) 0.0 Baso # (Auto) 0.1 Nucleated RBC % (auto) 0.2 Nucleated RBCs # 0.0 Sodium 131 L Potassium 4.4 Chloride 95 L Carbon Dioxide 28 Anion Gap 12.4 BUN 19 Creatinine 0.5 L GFR Calculation 167.9 H Glucose 160 H Calculated Osmolality 278 L Calcium 9.1 Completed Studies During Hospitalization Category Date Time Status CTA chest [CT angio chest PE protcl [id number]] Urgent Cat Scan 05/28/21 12:23 Completed XR chest 1V portable [id number] Urgent Exams 05/28/21 12:24 Completed Laboratory Last Values WBC 10.6 10^3/uL (4.0-10.0) H 06/02/21 08:29 RBC 4.50 10^6/uL (4.1-5.3) 06/02/21 08:29 Hgb 11.5 g/dL (11.7-16.6) L 06/02/21 08:29 Hct 37.4 % (42.0-52.0) L 06/02/21 08:29 MCV 83.1 fl (80-94) 06/02/21 08:29 MCH 25.6 pg (28.0-34.0) L 06/02/21 08:29 MCHC 30.7 g/dL (30.0-36.0) 06/02/21 08:29 RDW 17.9 % (12.1-15.1) H 06/02/21 08:29 Plt Count 377 10^3/cmm (130-400) 06/02/21 08: MPV 8.6 fL (7.4-10.4) 06/02/21 08: Neut % (Auto) 79.9 % 06/02/21 08: Lymph % (Auto) 15.1 % 06/02/21 08: [place] % (Auto) 4.3 % 06/02/21 08: Eos % (Auto) 0.0 % 06/02/21 08: Baso % (Auto) 0.7 % 06/02/21 08: Neut # (Auto) 7.84 10^3/uL (1.8-7.7) H 06/02/21 08: Lymph # (Auto) 1.6 10^3/uL (0.8-4.8) 06/02/21 08: [place] # (Auto) 0.5 10^3/uL (0.2-0.9) 06/02/21 08: Eos # (Auto) 0.0 10^3/uL (0.0-0.8) 06/02/21 08: Baso # (Auto) 0.1 10^3/uL (0.0-0.1) 06/02/21 08: Nucleated RBC % (auto) 0.2 % 06/02/21 08: Nucleated RBCs # 0.0 /100WBC 06/02/21 08:29 Fibrinogen 566 mg/dL (174-498) H 05/28/21 12:38 D-Dimer 0.50 ug/mIFEU (0-0.59) 05/28/21 12:38 Specimen Type Arterial 05/28/21 12:31 Sample Site Brachial, left 05/28/21 12:31 ABG pH 7.44 (7.35-7.45) 05/28/21 12:31 ABG pCO2 38.4 mmHg (35-45) 05/28/21 12:31 ABG pO2 183.0 mmHg (80.0-100.0) H 05/28/21 12:31 ABG HCO3 26.3 mmol/L (22-26) H 05/28/21 12:31 ABG Base Excess 2.1 mmol/L (-2.0-2.0) H 05/28/21 12:31 Erickson Test N/a 05/28/21 12:31 Hematocrit 34.8 % (42-52) L 05/28/21 12:31 O2 Delivery Device Nrb 05/28/21 12:31 O2 Liters/Min 15.0 % 05/28/21 12:31 FiO2 100.0 % 05/28/21 12:31 Flavor Tank Tender ID Ed 05/28/21 12:31 Sodium 131 mmol/L (136-145) L 06/02/21 08:29 Potassium 4.4 mmol/L (3.5-5.1) 06/02/21 08:29 Chloride 95 mmol/L (98-107) L 06/02/21 08:29 Carbon Dioxide 28 mmol/L (22-29) 06/02/21 08:29 Anion Gap 12.4 (5-19) 06/02/21 08:29 BUN 19 mg/dL (8-23) 06/02/21 08:29 Creatinine 0.5 mg/dL (0.7-1.2) L 06/02/21 08:29 GFR Calculation 167.9 mL/min (90-130) H 06/02/21 08:29 Glucose 160 mg/dL (65-115) H 06/02/21 08:29 Calculated Osmolality 278 mOsm/kg (285-295) L 06/02/21 08:29 Lactic Acid 1.2 mmol/L (0.5-2.2) 05/28/21 14:05 Calcium 9.1 mg/dL (8.5-10.5) 06/02/21 08:29 Magnesium 2.1 mg/dL (1.7-2.3) 05/28/21 12:38 Total Bilirubin 0.2 mg/dL (0.15-1.2) 05/29/21 06:42 AST 12 U/L (0-40) 05/29/21 06:42 ALT 22 U/L (0-41) 05/29/21 06:42 Alkaline Phosphatase 64 IU/L (40-130) 05/29/21 06:42 Creatine Kinase 42 U/L (39-308) 05/28/21 12:38 Troponin T Gen 5 ng/L 16 ng/L (0-15) H 05/28/21 12:38 C-Reactive Protein 24.9 mg/L (0.0-4.9) H 05/28/21 12:38 NT-Pro-B Natriuret Pep 14 pg/mL (0-125) 05/28/21 12:38 Total Protein 5.8 g/dL (6.6-8.7) L 05/29/21 06:42 Albumin 3.1 g/dL (3.5-5.2) L 05/29/21 06:42 Globulin 2.7 g/dL (1.3-4.6) 05/29/21 06:42 Procalcitonin 0.04 ng/mL (0-0.5) 05/29/21 06:42 Vancomycin Trough 16.3 ug/mL (10-15) H 05/29/21 21:28 Coronavirus 229E (PCR) Not detected (NOT DETECT) 05/28/21 12:50 SARS-CoV-2 (PCR) Not detected (NOT DETECT) 05/28/21 12:50 Radiology Impressions Chest CTA 05/28/21 12:23 IMPRESSION: 1. No evidence of pulmonary embolus. 2. Enlarged main pulmonary arteries can be seen with pulmonary arterial hypertension. 3. Prior postoperative changes RIGHT upper lobectomy. 4. Evidence of idiopathic pulmonary fibrosis unchanged since the prior examinations. 5. Chronic compression fractures in the mid thoracic spine described above unchanged. Chest X-Ray 05/28/21 12:24 IMPRESSION: Bilateral airspace opacities, corresponding to changes of pulmonary fibrosis seen on CT chest. Superimposed pneumonia should be excluded clinically. Recent Clincial Data Last Vital Signs Temp 97.6 F 06/02/21 08:28 Pulse 119 H 06/02/21 08:28 Resp 15 06/02/21 08:28 BP 131/92 06/02/21 08:28 Pulse Ox 96 06/02/21 08:28 Vital Signs Temp Pulse Resp BP Pulse Ox 06/02/21 08:28 97.6 F 119 H 15 131/92 96 06/02/21 07:54 111 H 06/02/21 07:50 100 18 98 06/02/21 06:00 90 06/02/21 04:02 98 18 99 06/02/21 04:00 97.6 F 96 19 H 107/67 98 06/02/21 00:20 93 06/02/21 00:17 95 17 98 06/02/21 00:00 97.7 F 95 21 H 106/63 97 Intake & Output/Weight 05/31/21 06/01/21 06/02/21 06/03/21 06:59 06:59 06:59 06:59 Intake Total 1786 / 1786 1790 / 1790 1270 / 1270 240 / 240 Output Total 1170 / 1170 1575 / 1575 2150 / 2150 Balance 616 / 616 215 / 215 -880 / -880 240 / 240 Vitals Last Vital Signs Temp 97.6 F 06/02/21 08:28 Pulse 119 H 06/02/21 08:28 Resp 15 06/02/21 08:28 BP 131/92 06/02/21 08:28 Pulse Ox 96 06/02/21 08:28 TS Medications Medications Acetaminophen (Acetaminophen 325 Mg Tablet) 650 mg PO Q6H PRN PRN Reason: Mild/Mod Pain Or Temp >/= 101 Last Admin: 05/31/21 17:43 Dose: 650 mg Documented by: Albuterol/Ipratropium (Ipratropium-Albuterol 3 Ml Neb) 3 ml INHALATION Q4H.RESPIRATORY [facility] Last Admin: 06/02/21 07:49 Dose: 3 ml Documented by: Apixaban (Apixaban 5 Mg Tablet) 2.5 mg PO BID [facility] Last Admin: 06/02/21 08:19 Dose: 2.5 mg Documented by: Atorvastatin Calcium (Atorvastatin 40 Mg Tablet) 20 mg PO DAILY [facility] Last Admin: 06/02/21 08:19 Dose: 20 mg Documented by: Benzonatate (Benzonatate 100 Mg Capsule) 100 mg PO TID PRN PRN Reason: COUGH Last Admin: 05/31/21 21:08 Dose: 100 mg Documented by: Bisacodyl (Bisacodyl 5 Mg Tablet) 10 mg PO DAILY PRN; Protocol PRN Reason: Constipation (see protocol) Clopidogrel Bisulfate (Clopidogrel 75 Mg Tablet) 75 mg PO DAILY [facility] Last Admin: 06/02/21 08:19 Dose: 75 mg Documented by: Cyclobenzaprine HCl (Cyclobenzaprine 10 Mg Tablet) 10 mg PO BEDTIME PRN PRN Reason: Muscle Spasm Last Admin: 06/01/21 20:53 Dose: 10 mg Documented by: Escitalopram Oxalate (Escitalopram 10 Mg Tablet) 20 mg PO DAILY [facility] Last Admin: 06/02/21 08:19 Dose: 20 mg Documented by: Piperacillin Sod/Tazobactam (Sod 3.375 gm/ Sodium Chloride) 50 mls @ 12.5 mls/hr IV Q8H [facility]; Protocol Last Infusion: 06/02/21 06:33 Dose: Infused Documented by: Lorazepam (Lorazepam 1 Mg Tablet) 1 mg PO TID PRN PRN Reason: Anxiety Last Admin: 06/01/21 20:54 Dose: 1 mg Documented by: Methylprednisolone Sodium Succinate (Methylprednisolone Sod Succ 125 Mg/2 Ml Inj ) 60 mg IVP Q12H [facility] Last Admin: 06/02/21 02:16 Dose: 60 mg Documented by: Nitroglycerin (Nitroglycerin 0.4 Mg Sublingual Tablet) 0.4 mg SUBLINGUAL Q5M PRN PRN Reason: chest pain Non-Formulary Medication (Pirfenidone [Esbriet]) 801 mg PO TIDWM [facility] Last Admin: 06/02/21 08:18 Dose: 801 mg Documented by: Pantoprazole Sodium (Pantoprazole Dr 40 Mg Tablet) 40 mg PO DAILY [facility] Last Admin: 06/02/21 08:19 Dose: 40 mg Documented by: Discontinued Medications Cyclobenzaprine HCl (Cyclobenzaprine 10 Mg Tablet) 5 mg PO ONCE ONE Stop: 05/28/21 23:47 Last Admin: 05/29/21 00:40 Dose: 5 mg Documented by: Cyclobenzaprine HCl (Cyclobenzaprine 10 Mg Tablet) 5 mg PO ONCE ONE Stop: 05/29/21 21:15 Last Admin: 05/29/21 21:29 Dose: 5 mg Documented by: Cyclobenzaprine HCl (Cyclobenzaprine 10 Mg Tablet) 5 mg PO ONCE ONE Stop: 05/30/21 21:18 Last Admin: 05/30/21 21:51 Dose: 5 mg Documented by: Enoxaparin Sodium (Enoxaparin 40 Mg/0.4 Ml Syringe) 40 mg SUBCUT Q24H [facility] Last Admin: 05/28/21 18:13 Dose: Not Given Documented by: Lactated Ringer's (Lactated Ringers) 1,000 mls @ 75 mls/hr IV .[id number] [facility] Last Infusion: 05/29/21 03:05 Dose: Infused Documented by: Vancomycin HCl / Sodium (Chloride) 250 mls @ 0 mls/hr [id number] PROTOCOL [facility]; Protocol Vancomycin/PEG/NADA/Lysine/Water (Vancocin) 1,250 mg in 250 mls @ 250 mls/hr IV Q8H [facility] Last Infusion: 05/31/21 07:45 Dose: Infused Documented by: Iohexol (Iohexol 350 Mg/Ml 100 Ml Btl) 0 ml IV ONCE ONE Stop: 05/28/21 13:07 Last Admin: 05/28/21 13:06 Dose: 72 ml Documented by: Methylprednisolone Sodium Succinate (Methylprednisolone Sod Succ 125 Mg/2 Ml Inj) 125 mg IVP ONCE ONE Stop: 05/28/21 13:52 Last Admin: 05/28/21 14:07 Dose: 125 mg Documented by: Non-Formulary Medication (Pirfenidone [Esbriet]) 801 mg PO TID [facility] Last Admin: 05/30/21 09:27 Dose: 801 mg Documented by: Allergies insect venom Allergy (Verified 05/02/21 10:40) ALGY-Difficulty Swallowing Home Medications escitalopram oxalate 10 mg tablet (Lexapro) 20 mg PO DAILY tab 03/14/20 [History Confirmed 05/30/21] albuterol sulfate 90 mcg/actuation aerosol inhaler (ProAir HFA) 2 puff INHALA TION Q4H PRN 09/12/20 [History Confirmed 05/30/21] budesonide 160 mcg-glycopyr 9 mcg-formot 4.8 mcg/actuation HFA inhaler (Breztri Aerosphere) 2 inh INHALATION BID 09/12/20 [History Confirmed 05/30/21] fluticasone propionate 50 mcg/actuation nasal spray,suspension 2 spray INTRANASAL DAILY 09/12/20 [History Confirmed 05/30/21] nitroglycerin 0.4 mg sublingual tablet (Nitrostat) 0.4 mg SUBLINGUAL Q5M PRN #25 tab 09/12/20 [Rx Confirmed 05/30/21] lorazepam 1 mg tablet (Ativan) 1 mg PO TID PRN 09/13/20 [History Confirmed 05/30/21] acetaminophen 325 mg tablet (Tylenol) 650 mg PO Q6H PRN #240 tab 09/28/20 [Rx Confirmed 05/30/21] [id number] Ventilator 10/02/20 [History Confirmed 05/30/21] oxygen-air delivery systems 10/02/20 [History Confirmed 05/30/21] atorvastatin 20 mg tablet 20 mg PO DAILY 90 Days #90 tab 10/18/20 [Rx Confirmed 05/30/21] clopidogrel 75 mg tablet 75 mg PO DAILY 90 Days #90 tab 11/15/20 [Rx Confirmed 05/30/21] sulfamethoxazole 800 mg-trimethoprim 160 mg tablet (Bactrim DS) 1 tab PO .COMPLEX 90 Days #45 tab 11/15/20 [Rx Confirmed 05/30/21] cyclobenzaprine 10 mg tablet 10 mg PO BEDTIME PRN tab 12/08/20 [History Confirmed 05/30/21] ondansetron 4 mg disintegrating tablet 4 mg PO Q8H PRN #7 tab 12/30/20 [Rx Confirmed 05/30/21] loratadine 10 mg tablet 10 mg PO DAILY 01/21/21 [History Confirmed 05/30/21] melatonin 10 mg tablet 10 mg PO BEDTIME 01/21/21 [History Confirmed 05/30/21] diltiazem HCl 240 mg capsule,extended release 24 hr 240 mg PO DAILY #90 cap 03/12/21 [Rx Confirmed 05/30/21] Vitamin D3 Gummies 1 tab PO DAILY 04/18/21 [History Confirmed 05/30/21] albuterol sulfate 2.5 mg INHALATION QID PRN 04/18/21 [History Confirmed 05/30/21] sildenafil 25 mg tablet 25 mg PO PRN PRN 04/18/21 [History Confirmed 05/30/21] pirfenidone 801 mg tablet (Esbriet) 801 mg PO TID #90 tab 04/27/21 [Rx Confirmed 05/30/21] apixaban 5 mg tablet (Eliquis) 2.5 mg PO BID 05/02/21 [History Confirmed 05/30/21] ipratropium 0.5 mg-albuterol 3 mg (2.5 mg base)/3 mL nebulization soln 3 ml INHALATION TID #180 ml 05/10/21 [Rx Confirmed 05/30/21] pantoprazole 40 mg tablet,delayed release 40 mg PO DAILY #30 tab 05/10/21 [Rx Confirmed 05/30/21] Vitamin C Gummies 1 tab PO DAILY 05/30/21 [History Confirmed 05/30/21] benzonatate 100 mg capsule (Marlon Martinez) 100 mg PO TID 05/30/21 [History Confirmed 05/30/21] prednisone 20 mg tablet 40 mg PO DAILY 7 Days #28 tab 06/02/21 [Rx] Discharge Plan Discharge Patient Disposition: Home Condition: Stable Prescriptions: New prednisone 20 mg tablet 40 mg PO DAILY 7 Days Qty: 28 0RF Continued diltiazem HCl 240 mg capsule,extended release 24hr 240 mg PO DAILY Qty: 90 3RF escitalopram oxalate [Lexapro] 10 mg tablet 20 mg PO DAILY 0RF (DME) oxygen-air delivery systems Device See Rx Instructions .Route 0RF Rx Instructions: As directed - 4L at rest & 8L with exertion (DME) [id number] Ventilator 0 .Route .MEDSUPPLY 0RF nitroglycerin [Nitrostat] 0.4 mg tablet, sublingual 0.4 mg sublingual Q5M PRN (Reason: chest pain) Qty: 25 3RF Rx Instructions: do not exceed 3 doses per episode acetaminophen [Tylenol] 325 mg tablet 650 mg PO Q6H PRN (Reason: pain) Qty: 240 3RF atorvastatin 20 mg tablet 20 mg PO DAILY 90 Days Qty: 90 3RF clopidogrel 75 mg tablet 75 mg PO DAILY 90 Days Qty: 90 1RF sulfamethoxazole-trimethoprim [Bactrim DS] 800-160 mg tablet 1 tab PO .COMPLEX 90 Days Qty: 45 6RF Rx Instructions: 1 tab PO Friday, Friday, Friday Esbriet 801 mg tablet 801 mg PO TID Qty: 90 11RF Rx Instructions: administer with food at the same time(s) each day cyclobenzaprine 10 mg tablet 10 mg PO BEDTIME PRN (Reason: Muscle Spasm) 0RF albuterol sulfate [ProAir HFA] 90 mcg/actuation Hfa Aerosol Inhaler 2 puff INHALATION Q4H PRN (Reason: Shortness Of Breath) 0RF fluticasone propionate 50 mcg/actuation spray,suspension 2 spray INTRANASAL DAILY 0RF Breztri Aerosphere 160-9-4.8 mcg/actuation HFA aerosol inhaler 2 inh inhalation BID 0RF lorazepam [Ativan] 1 mg Tablet 1 mg PO TID PRN (Reason: Anxiety) 0RF melatonin 10 mg tablet 10 mg PO BEDTIME 0RF loratadine 10 mg Tablet 10 mg PO DAILY 0RF ondansetron 4 mg tablet,disintegrating 4 mg PO Q8H PRN (Reason: nausea and vomiting) Qty: 7 0RF albuterol sulfate 2.5 mg /3 mL (0.083 %) solution for nebulization 2.5 mg inhalation QID PRN (Reason: Shortness Of Breath) 0RF Vitamin D3 Gummies 1 tab PO DAILY 0RF sildenafil 25 mg tablet 25 mg PO PRN PRN (Reason: sexual activity) 0RF Rx Instructions: administer 1 hour before sexual activity Eliquis 5 mg tablet 2.5 mg PO BID 0RF pantoprazole 40 mg Tablet,Delayed Release (Dr/Ec) 40 mg PO DAILY Qty: 30 0RF ipratropium-albuterol 0.5 mg-3 mg(2.5 mg base)/3 mL solution for nebulization 3 ml inhalation TID Qty: 180 0RF Vitamin C Gummies 1 tab PO DAILY 0RF Tessalon Perles 100 mg capsule 100 mg PO TID 0RF Discontinued prednisone 20 mg Tablet 20 mg PO DAILY 0RF Discharge Orders: Discharge Order (Routine); Ordered 06/02/21 Ordered By: Willian Perez Referrals: Daniel Nogueira DO [Primary Care Provider] - 1 month Joaquín Mayfield MD [Physician] - 2 weeks Discharge Diet: Regular Discharge Activity: Increase activity as tolerated Patient Instructions: Opioid Safety Transfer Attestations Time Spent in Transfer Care: greater than 30 min Specific Discharge Activities: educating patient, educating and/or supporting family/caregiver, discussing with pcp/other providers, discussing with case checker/social workers/dc planners, documenting/other paperwork and evaluating patient/reviewing data Status at Transfer: Cognitive status at transfer: cognitively intact ; Behavioral status at transfer: cooperative ; Functional status at transfer: independent ambulation ; Overall status at transfer: patient is not back to baseline Quality Metrics Clinical Quality Measures [ No reported AMI, CVA or VTE this stay] Coding Level of Care 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 transplanted heart: [place] heart Associated angina: with unspecified angina
--- NOTE | 2021-06-02 12:21 | PC.NURSE ---
Report called to Winnie Watters RN, at [facility].
[2021-06-04 17:33] LABS: Interleukin 6 (IL-6) Serum 6.33 pg/mL (<5.00)
== END 2021-06-02 14:30 | DRG 193 ==
LOC: ER 15:20 → ER IP 15:44 → MEDSURG 05-29 03:41
PROVIDERS: Admitting Provider Internal Medicine; Emergency Provider Emergency Medicine; PCP Family Medicine; Visit Provider Internal Medicine
DX: J18.9 Pneumonia, unspecified organism (principal); J96.21 Acute and chronic respiratory failure with hypoxia; I47.1 Supraventricular tachycardia; J43.9 Emphysema, unspecified; J84.112 Idiopathic pulmonary fibrosis; Z99.81 Dependence on supplemental oxygen; Z86.16 Personal history of COVID-19; Z79.52 Long term (current) use of systemic steroids; I25.10 Atherosclerotic heart disease of native coronary artery without angina pectoris; E11.9 Type 2 diabetes mellitus without complications; G47.30 Sleep apnea, unspecified; Z87.01 Personal history of pneumonia (recurrent); Z86.711 Personal history of pulmonary embolism; Z87.891 Personal history of nicotine dependence; Z90.2 Acquired absence of lung [part of]; I27.20 Pulmonary hypertension, unspecified; Z76.82 Awaiting organ transplant status; Z79.02 Long term (current) use of antithrombotics/antiplatelets; Z79.51 Long term (current) use of inhaled steroids; Z79.01 Long term (current) use of anticoagulants
CPT/HCPCS: 36415; 36600; 71045; 71275; 80048; 80053; 80202; 82550; 82803; 83520; 83605; 83735; 83880; 84145; 84484; 85025; 85378; 85384; 86140; 86403; 87070; 87449; 87635; 87641; 94640; 96365; 99285; J1650; J2543; J2930; J3370; Q9967

== ENCOUNTER 2021-06-12 06:00 | Outpatient (RCR) | payer OTHER, SELFPAY | END 2021-07-12 23:59 | disposition home or self-care (01) | LOC: PULRHB 06:00 | PROVIDERS: PCP Family Medicine; Visit Provider Internal Medicine Critical Care Medicine | DX: J84.9 Interstitial pulmonary disease, unspecified (principal) | CPT/HCPCS: G0237; G0238 ==

== ENCOUNTER 2021-07-02 06:00 | Outpatient (RCR) | payer OTHER, SELFPAY | END 2021-07-05 23:59 | disposition home or self-care (01) | LOC: SPT 06:00 | PROVIDERS: PCP Family Medicine; Referring Provider Internal Medicine; Visit Provider Internal Medicine | DX: R26.89 Other abnormalities of gait and mobility (principal) | CPT/HCPCS: 97110; 97161 ==

== ENCOUNTER 2021-07-13 06:00 | Outpatient (RCR) | payer OTHER, SELFPAY | END 2021-08-11 23:59 | disposition home or self-care (01) | LOC: PULRHB 06:00 | PROVIDERS: PCP Family Medicine; Visit Provider Internal Medicine Critical Care Medicine | DX: J84.9 Interstitial pulmonary disease, unspecified (principal) | CPT/HCPCS: G0237; G0238 ==

== ENCOUNTER 2021-07-15 21:53 | Observation (INO) | payer OTHER, SELFPAY ==
[2021-07-15] VITALS (7 sets, daily range): BP systolic 100–116; BP diastolic 71–78; PULSE 96–118; RESP 20–50; TEMP 36.3; O2SAT 85–97; BMI 23.7
--- NOTE | 2021-07-15 21:59 | ED_ITS ---
HPI - SOB/Dyspnea General: Chief Complaint: Shortness of Breath/Dyspnea Stated Complaint: SOB\ Heart Rate up Time Seen by Provider: 07/15/21 21:58 History of Present Illness: HPI Narrative: Mr. Babcock is a 66-year-old gentleman with history of CAD, hypertension, hyperlipidemia, history of pulmonary embolism on anticoagulation, history of emphysema as well as fibrotic lung disease who presents to the ED emergency department due to shortness of breath. Patient at baseline requires 6 to 8 L of supplemental oxygen and has limitations secondary to his shortness of breath. He developed worsening shortness of breath starting earlier today which was gradual and became severe prior to presentation. The patient had marked respiratory distress and was hypoxemic on his baseline oxygen when he presented to the emergency department. He otherwise denies significant changes to health. He reports compliance with his medication regimen however his home medications failed to improve his condition. Additionally he has been decreased to 20 mg on a long-term steroid taper though this has been for the past week. No other specific changes in health, exacerbating, or alleviating factors identified. 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 Aspergillosis Atrial tachycardia COPD (chronic obstructive pulmonary disease) COPD (chronic obstructive pulmonary disease) Coronary artery disease Cubital tunnel syndrome on right Diabetes Diabetes Emphysema of lung Erectile dysfunction Gross hematuria High risk medication use Idiopathic pulmonary fibrosis Interstitial lung disease Joint pain Left lower quadrant pain Obstructive sleep apnea P-ANCA titer positive Pneumocystis jiroveci pneumonia Pulmonary embolism Pulmonary fibrosis Pulmonary interstitial fibrosis Pulmonary nodule Surgical absence of teeth SVT (supraventricular tachycardia) Tobacco abuse Urolithiasis Surgical History H/O neck surgery H/O: vasectomy History of ankle surgery History of dental surgery History of facial surgery History of lung biopsy S/P lobectomy of lung Family History Father , AT AGE 78 Cancer Hypertension Mother Diabetes Brother Diabetes Sister Diabetes Father Cancer Prostate Social History Smoking and tobacco status: former smoker Quit status (tobacco): has quit using tobacco Year quit tobacco: 2020 - 2PPD x 40 Years Second hand smoke exposure: No Alcohol intake: never Marital status: Number of children: 3 Number of grandchildren: 4 Current occupational status: retired and disabled History of recent travel: No Dian/Oriental Orthodox: Latter Day Physical Exam Const: COMMON NORMALS: alert GENERAL APPEARANCE: cooperative, well devel oped and ill appearing HENMT: COMMON NORMALS: normocephalic and atraumatic HEAD & SCALP: normocephalic and atraumatic THROAT: posterior oropharynx normal Eye: COMMON NORMALS: conjunctivae normal CONJUNCTIVA: Yes conjunctivae normal SCLERA: sclerae normal Neck/C-Spine: COMMON NORMALS: supple GENERAL: Yes trachea midline Resp: EFFORT & INSPECTION: Yes tachypneic and Yes respiratory distress AUSCULTATION: rhonchi, wheezes and diminished lung sounds Cardio: COMMON NORMALS: regular rhythm RATE: tachycardic RHYTHM: regular rhythm GI: COMMON NORMALS: Soft to palpation PALPATION: Yes Soft to palpation and No Tenderness to palpation present (GI) PERCUSSION: normal to percussion Extremity: GENERAL: Yes normal exam except as noted and No edema Neuro: COMMON NORMALS: moves all extremities SENSORIUM/ORIENTATION: Yes alert and No Orientation impaired Psych: COMMON NORMALS: mental status grossly normal and Normal thought process present THOUGHT PROCESS: Normal thought process present Course ED course: - Patient was seen and evaluated by me at bedside - Patient placed on cardiac monitors, IV access obtained - Initial evaluation notable for respiratory distress as above - Labs and xrays personally interpreted by me. EKG at 2207 and 0018 personally interpreted by me. Sinus tachycardia with nonspecific ST segment abnormalities. No STEMI. - RT treatment ordered - Labs notable for leukocytosis, mild normocytic anemia. Metabolic panel without acute derangement to explain symptoms. Lactic acid is elevated. On nonrebreather mask no evidence of hypercapnia. - Imaging notable for chronic fibrosis without lobar consolidation or pneumothorax. - Upon serial reexamination after treatment the patient was improved. - Based on patient history, evaluation, and testing as interpreted the most likely cause of the patient's condition is exacerbation of severe underlying COPD - The results of ED evaluation were discussed with the patient including plan for admission due to requirement for level of care not available if discharged to prevent significant worsening/deterioration. - Hospitalist service contacted and agreed admit the patient. - Patient was admitted without further deterioration or significant events. Note: Click bubbles or prepopulated lieberman in note writing are used for assistance with data collection and billing and are inherently more limited than narrative and other text portions of this note. Please use narrative for additional clinical history and defer to narrative/free test for any case of contradictory information. If information appears in only free text or click bubble it should be considered present or absent as reported. Please contact note service writer for clarifications of clinical information or contradictory information. MDM is a brief summary, contradictory or erroneous seeming information should be clarified and full note should be reviewed. Vital Signs: Vital signs: Vital Signs Temperature 98.1 F 07/17/21 17:08 Pulse Rate 105 H 07/17/21 17:08 Respiratory Rate 16 07/17/21 17:08 Blood Pressure 129/63 07/17/21 17:08 Pulse Oximetry 94 07/17/21 17:08 MDM - SOB/Dyspnea Medical Decision Making 66-year-old gentleman with significant underlying lung disease presenting with respiratory distress. Initially requiring 15 L via nonrebreather. Improved after RT treatment. Admitted for further treatment of acute exacerbation of underlying lung disease. Medical Records I reviewed the patient's medical records. Lab Data I reviewed the patient's lab results. : 07/17/21 04:50 07/17/21 04:50 Labs/Radiology: Radiology Impressions Chest X-Ray 07/15/21 22:02 IMPRESSION: Chronic pulmonary fibrosis not significantly changed. Laboratory Results WBC 11.9 10^3/uL (4.0-10.0) H 07/15/21 22:00 RBC 4.04 10^6/uL (4.1-5.3) L 07/15/21 22:00 Hgb 10.5 g/dL (11.7-16.6) L 07/15/21 22:00 Hct 33.8 % (42.0-52.0) L 07/15/21 22:00 MCV 83.7 fl (80-94) 07/15/21 22:00 MCH 26.0 pg (28.0-34.0) L 07/15/21 22:00 MCHC 31.1 g/dL (30.0-36.0) 07/15/21 22:00 RDW 18.6 % (12.1-15.1) H 07/15/21 22:00 Plt Count 233 10^3/cmm (130-400) 07/15/21 22:00 MPV 8.4 fL (7.4-10.4) 07/15/21 22:00 Neut % (Auto) 60.0 % 07/15/21 22:00 Lymph % (Auto) 29.0 % 07/15/21 22:00 [place] % (Auto) 8.8 % 07/15/21 22:00 Eos % (Auto) 0.1 % 07/15/21 22:00 Baso % (Auto) 0.3 % 07/15/21 22:00 Neut # (Auto) 7.13 10^3/uL (1.8-7.7) 07/15/21 22:00 Lymph # (Auto) 3.5 10^3/uL (0.8-4.8) 07/15/21 22:00 [place] # (Auto) 1.0 10^3/uL (0.2-0.9) H 07/15/21 22:00 Eos # (Auto) 0.0 10^3/uL (0.0-0.8) 07/15/21 22:00 Baso # (Auto) 0.0 10^3/uL (0.0-0.1) 07/15/21 22:00 Nucleated RBC % (auto) 0 % 07/15/21 22:00 Nucleated RBCs # 0.0 /100WBC 07/15/21 22:00 Specimen Type Arterial 07/15/21 10:40 Sample Site Radial, right 07/15/21 10:40 ABG pH 7.45 (7.35-7.45) 07/15/21 10:40 ABG pCO2 40.4 mmHg (35-45) 07/15/21 10:40 ABG pO2 127.0 mmHg (80.0-100.0) H 07/15/21 10:40 ABG HCO3 28.2 mmol/L (22-26) H 07/15/21 10:40 ABG Base Excess 3.9 mmol/L (-2.0-2.0) H 07/15/21 10:40 Erickson Test Pos 07/15/21 10:40 Hematocrit 26.9 % (42-52) L 07/15/21 10:40 Hgb O2 Saturation 96.6 % (95-100) 07/15/21 10:40 Carboxyhemoglobin 0.1 %THgb (0.4-20.1) L 07/15/21 10:40 Methemoglobin 1.3 % (0.4-1.5) 07/15/21 10:40 Total Hemoglobin 8.8 g/dL (14-18) L 07/15/21 10:40 O2 Delivery Device Nrb 07/15/21 10:40 O2 Liters/Min 12.0 % 07/15/21 10:40 Lacquer Pin Press Operator ID Rieri 07/15/21 10:40 Sodium 137 mmol/L (136-145) 07/15/21 22:00 Potassium 4.4 mmol/L (3.5-5.1) 07/15/21 22:00 Chloride 102 mmol/L (98-107) 07/15/21 22:00 Carbon Dioxide 23 mmol/L (22-29) 07/15/21 22:00 Anion Gap 16.4 (5-19) 07/15/21 22:00 BUN 16 mg/dL (8-23) 07/15/21 22:00 Creatinine 0.7 mg/dL (0.7-1.2) 07/15/21 22:00 GFR Calculation 113.5 mL/min (90-130) 07/15/21 22:00 Glucose 93 mg/dL (65-115) 07/15/21 22:00 Calculated Osmolality 285 mOsm/kg (285-295) 07/15/21 22:00 Lactic Acid 2.5 mmol/L (0.5-2.2) H 07/15/21 22:00 Calcium 9.5 mg/dL (8.5-10.5) 07/15/21 22:00 Total Bilirubin 0.2 mg/dL (0.15-1.2) 07/15/21 22:00 AST 11 U/L (0-40) 07/15/21 22:00 ALT 19 U/L (0-41) 07/15/21 22:00 Alkaline Phosphatase 75 IU/L (40-130) 07/15/21 22:00 Troponin T Baseline 20 ng/L (0-15) H 07/15/21 22:00 Troponin T 120 Minute 21.88 ng/L (0-15) H 07/16/21 00:15 Delta Troponin T 1.88 ABS# (0-10) 07/16/21 00:15 NT-Pro-B Natriuret Pep 73 pg/mL (0-125) 07/15/21 22:00 Total Protein 5.8 g/dL (6.6-8.7) L 07/15/21 22:00 Albumin 3.6 g/dL (3.5-5.2) 07/15/21 22:00 Globulin 2.2 g/dL (1.3-4.6) 07/15/21 22:00 Procalcitonin 0.07 ng/mL (0-0.5) 07/16/21 00:15 Critical Care Time Critical Care Time: Critical Care Time: Yes Total Critical Care Time: 40 Attestation: Due to a high probability of clinically significant, possibly life threatening deterioration, the patient required my highest level of attention and preparedness to intervene emergently and I personally spent this critical care time directly and personally managing the patient. This critical care time included obtaining a history; examining the patient; pulse oximetry; ordering and review of laboratory and imaging studies; arranging urgent treatment with development of a management plan; evaluation of patient's response to treatment; frequent reassessment; and, discussions with other providers as applicable. It was exclusive of separately billable procedures. Primary system involved is pulmonary Discharge Plan Discharge Patient Disposition: Placed in Observation Admit Provider: Gonzalo Cobian Clinical Impression: Acute on chronic respiratory failure with hypoxia Discharge Diet: Cardiac Discharge Activity: As per cardiac/pulm rehab instructions Coding Level of Care Code ED Adobe Layer Helper for Chelsea Albert
--- NOTE | 2021-07-15 22:02 | ECG_ITS ---
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 Measurements Intervals [place] Rate: 105 P: 43 [place]: 158 QRS: -35 QRSD: 90 T: 36 QT: 317 QTc: 420 Interpretive Statements SINUS TACHYCARDIA LEFT AXIS DEVIATION [QRS AXIS < -30] MODERATE VOLTAGE CRITERIA FOR LVH, CONSIDER NORMAL VARIANT [MEETS CRITERIA IN ONE OF: R(aVL), S(V1), R(V5), R(V5/V6)+S(V1)] NONSPECIFIC T-WAVE ABNORMALITY Compared to ECG 05/02/2021 12:53:04 Left-axis deviation now present T-wave abnormality now present ST (T wave) deviation no longer present Myocardial infarct finding no longer present Electronically Signed On 07-17-2021 9:15:51 CDT by Angel Ramirez M.D. [id number]
--- NOTE | 2021-07-15 22:02 | XRR_ITS ---
PROCEDURE INFORMATION: Exam: XR Chest Exam date and time: 07/15/2021 10:11 PM Age: 66 years old Clinical indication: Dyspnea; Prior surgery; Surgery date: 6+ months; Surgery type: Lobectomy; Additional info: SOB TECHNIQUE: Imaging protocol: XR of the chest. Views: 1 view. COMPARISON: CR XR chest 1V portable [id number] 05/28/2021 1:15 PM FINDINGS: Lungs: There are findings of pulmonary fibrosis predominantly in the lower lungs not significantly changed. No new infiltrate is identified. Pleural spaces: Unremarkable. No pleural effusion. No pneumothorax. Heart/Mediastinum: Heart is within normal limits of size. Bones/joints: There is degenerative change and scoliosis in the thoracic spine. XR/XR chest 1V portable [id number] IMPRESSION: Chronic pulmonary fibrosis not significantly changed.
[2021-07-15 22:12] LABS: Basophils % 0.3 %; Eosinophils % 0.1 %; Hematocrit 33.8 % (42.0-52.0); Hemoglobin 10.5 g/dL (11.7-16.6); Lymphocytes # 3.5 10^3/uL (0.8-4.8); Mean Corpuscular HGB Conc 31.1 g/dL (30.0-36.0); Mean Corpuscular Volume 83.7 fl (80-94); Mean Platelet Volume 8.4 fL (7.4-10.4); Monocytes % 8.8 %; Neutrophils # 7.13 10^3/uL (1.8-7.7); Nucleated Red Blood Cells % 0 %; Platelet Count 233 10^3/cmm (130-400); Red Blood Count 4.04 10^6/uL (4.1-5.3); Red Cell Distribution Width 18.6 % (12.1-15.1); White Blood Count 11.9 10^3/uL (4.0-10.0)
[2021-07-15] MEDS: ipratropium-albuterol 3 mL Neb INHALATION (22:13)
[2021-07-15 22:28] LABS: Lactic Sepsis W/Reflex 2.5 mmol/L (0.5-2.2)
[2021-07-15 22:32] LABS: Reflex Lactate Order REFLEX LACTIC ORDERD
[2021-07-15 22:36] LABS: Troponin(5th) Baseline 20 ng/L (0-15)
[2021-07-15 22:43] LABS: Alanine Aminotransferase 19 U/L (0-41); Albumin Level 3.6 g/dL (3.5-5.2); Alkaline Phosphatase 75 IU/L (40-130); Anion Gap 16.4 (5-19); Aspartate Amino Transferase 11 U/L (0-40); Blood Urea Nitrogen 16 mg/dL (8-23); Calcium 9.5 mg/dL (8.5-10.5); Carbon Dioxide 23 mmol/L (22-29); Chloride 102 mmol/L (98-107); Globulin 2.2 g/dL (1.3-4.6); Glomerular Filtration Rate 113.5 mL/min (90-130); Glucose 93 mg/dL (65-115); NT Pro B Type Natriuretic Pept 73 pg/mL (0-125); Osmolality Calculated 285 mOsm/kg (285-295); Potassium 4.4 mmol/L (3.5-5.1); Sodium 137 mmol/L (136-145); Total Bilirubin 0.2 mg/dL (0.15-1.2); Total Protein 5.8 g/dL (6.6-8.7)
[2021-07-15 22:50] LABS: ABG PCO2 40.4 mmHg (35-45); ABG PH Result 7.45 (7.35-7.45); Arterial Blood Gas Hematocrit 26.9 % (42-52); Base Excess ABG 3.9 mmol/L (-2.0-2.0); Blood Gas Allen Test Pos; Blood Gas Sample Site Radial, right; Blood Gas Sample Type Arterial; Carboxyhemoglobin 0.1 %THgb (0.4-20.1); HCO3 ABG 28.2 mmol/L (22-26); HGB O2 Sat 96.6 % (95-100); Methemoglobin 1.3 % (0.4-1.5); Total Hemoglobin 8.8 g/dL (14-18)
[2021-07-15 22:51] LABS: Oxygen Device NRB
[2021-07-15] MEDS: cefepime 2,000 MG in sodium chloride 0.9% (plus) 50 ML 100 MG IV (22:57)
[2021-07-16] VITALS (20 sets, daily range): BP systolic 88–122; BP diastolic 52–83; PULSE 88–110; RESP 17–22; TEMP 36.6–36.9; O2SAT 91–97; BMI 24.1
--- NOTE | 2021-07-16 00:02 | ECG_ITS ---
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 Measurements Intervals [place] Rate: 108 P: 31 [place]: 157 QRS: -38 QRSD: 103 T: 34 QT: 315 QTc: 424 Interpretive Statements SINUS TACHYCARDIA LEFT ATRIAL ENLARGEMENT [-0.15mV P-WAVE IN V1/V2] LEFT AXIS DEVIATION [QRS AXIS < -30] POSSIBLE LEFT VENTRICULAR HYPERTROPHY [VOLTAGE CRITERIA PLUS LAE OR QRS WIDENING] NONSPECIFIC T-WAVE ABNORMALITY Compared to ECG 05/02/2021 12:53:04 Atrial abnormality now present Left-axis deviation now present T-wave abnormality now present ST (T wave) deviation no longer present Myocardial infarct finding no longer present Electronically Signed On 07-17-2021 9:22:27 CDT by Angel Ramirez M.D. [id number]
[2021-07-16] MEDS: sodium chloride 0.9% 500 ML 999 ML IV (00:41)
[2021-07-16 01:06] LABS: Troponin 5 2HR 21.88 ng/L (0-15)
[2021-07-16 01:08] LABS: Troponin 5 2HR Delta 1.88 ABS# (0-10)
--- NOTE | 2021-07-16 01:45 | PM.HP ---
Providers/Chief Complaint Primary Care Provider: Daniel Nogueira DO Chief Complaint: SOB\ Heart Rate up History of Present Illness Pleasant 66-year-old gentleman with combined pulmonary fibrosis and emphysema, chronic hypoxic respite failure, reports more recently on 5-8 L of oxygen by nasal cannula, on chronic steroids difficult to taper, more recently was decreased to 20 mg daily, presented to the hospital due to respiratory distress with acute on chronic hypoxic respiratory failure requiring 15 L of oxygen on presentation, reports became more short of breath and with more cough than usual starting this morning. In ER received breathing treatment, dose of Solu-Medrol, fluid bolus, dose of cefepime. Feeling somewhat better, and has come down on oxygen requirement. Still with some intermittent cough. No chest pain or pressure. On chronic anticoagulation with Eliquis, although for some reason on 2.5 mg. D-dimer assessed and is not elevated. COVID-19 PCR pending. He is fully vaccinated with history of Covid. Ever since recovering from the infection reports he has had increased oxygen requirement. In terms of CODE STATUS, in case of cardiopulmonary arrest given he would most likely end up requiring intubation and mechanical ventilation in case of cardiac arrest and chest compressions, he states not to perform CPR or intubation/mechanical ventilation in such situation. Review of Systems Const: Denies: fever(s), chills, body aches or malaise Eyes: Denies: change in vision, eye discomfort or eye redness ENMT: Denies: throat pain, oral sores or ear or mastoid pain Card: Denies: chest pain, edema, pre-syncope or dyspnea on exertion Resp: Reports: dyspnea and non-productive cough; Denies: productive cough, change in phlegm color or hemoptysis GI: Denies: abdominal pain, nausea, vomiting, diarrhea, constipation, hematochezia or melena : Denies: flank pain, difficulty urinating, urinary frequency or hematuria Musc: Denies: back pain, joint swelling or joint redness Skin/Breast: Denies: rash or new lesions Neuro: Denies: headache(s), numbness in extremities, weakness in extremities, dizziness, confusion or seizure-like activity Endo: Denies: polyuria or polydipsia Jamari/Lymph: Denies: easy bleeding or tender lymph nodes All/Imm: Denies: urticaria or tongue swelling Medications/Allergies Home Medications Medication Instructions Recorded Confirmed Last Taken Type escitalopram oxalate 10 mg tablet 20 mg PO DAILY tab 03/14/20 07/12/21 01/20/21 History (Lexapro) albuterol sulfate 90 mcg/actuation 2 puff INHALATION Q4H PRN 09/12/20 07/12/21 Unknown History aerosol inhaler (ProAir HFA) fluticasone propionate 50 2 spray INTRANASAL DAILY 09/12/20 07/12/21 Unknown History mcg/actuation nasal spray,suspension nitroglycerin 0.4 mg sublingual 0.4 mg SUBLINGUAL Q5M PRN #25 tab 09/12/20 07/12/21 Unknown Rx tablet (Nitrostat) lorazepam 1 mg tablet (Ativan) 1 mg PO TID PRN 09/13/20 07/12/21 Unknown History acetaminophen 325 mg tablet 650 mg PO Q6H PRN #240 tab 09/28/20 07/12/21 Unknown Rx (Tylenol) [id number] Ventilator 10/02/20 06/25/21 Unknown History oxygen-air delivery systems 10/02/20 07/12/21 Unknown History atorvastatin 20 mg tablet 20 mg PO DAILY 90 Days #90 tab 10/18/20 07/12/21 01/20/21 Rx sulfamethoxazole 800 1 tab PO .COMPLEX 90 Days #45 tab 11/15/20 07/12/21 Unknown Rx mg-trimethoprim 160 mg tablet (Bactrim DS) cyclobenzaprine 10 mg tablet 10 mg PO BEDTIME PRN tab 12/08/20 07/12/21 01/20/21 History ondansetron 4 mg disintegrating 4 mg PO Q8H PRN #7 tab 12/30/20 07/12/21 Unknown Rx tablet loratadine 10 mg tablet 10 mg PO DAILY 01/21/21 07/12/21 01/20/21 History melatonin 10 mg tablet 10 mg PO BEDTIME 01/21/21 07/12/21 01/19/21 History diltiazem HCl 240 mg 240 mg PO DAILY #90 cap 03/12/21 07/12/21 Unknown Rx capsule,extended release 24 hr Vitamin D3 Gummies 1 tab PO DAILY 04/18/21 07/12/21 Unknown History sildenafil 25 mg tablet 25 mg PO PRN PRN 04/18/21 07/12/21 Unknown History pirfenidone 801 mg tablet (Esbriet) 801 mg PO TID #90 tab 04/27/21 07/12/21 Unknown Rx apixaban 5 mg tablet (Eliquis) 2.5 mg PO BID 05/02/21 07/12/21 Unknown History ipratropium 0.5 mg-albuterol 3 mg 3 ml INHALATION TID #180 ml 05/10/21 07/12/21 Unknown Rx (2.5 mg base)/3 mL nebulization soln pantoprazole 40 mg tablet,delayed 40 mg PO DAILY #30 tab 05/10/21 07/12/21 Unknown Rx release Vitamin C Gummies 1 tab PO DAILY 05/30/21 07/12/21 Unknown History benzonatate 100 mg capsule 100 mg PO TID 05/30/21 07/12/21 Unknown History (Marlon Martinez) prednisone 10 mg tablet 30 mg PO DAILY tab 06/25/21 07/12/21 Unknown History clopidogrel 75 mg tablet 75 mg PO DAILY 90 Days #90 tab 07/12/21 07/12/21 Unknown Rx Allergies Allergy/AdvReac Type Severity Reaction Status Date / Time insect venom Allergy ALGY-Difficulty Verified 07/12/21 15:46 Swallowing PFSH Acute PFSH: Medical History Abnormal stress test Acute and chronic respiratory failure with hypoxia Acute hypoxemic respiratory failure Acute on chronic respiratory failure with hypoxia 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 Aspergillosis Atrial tachycardia COPD (chronic obstructive pulmonary disease) COPD (chronic obstructive pulmonary disease) Coronary artery disease Cubital tunnel syndrome on right Diabetes Diabetes Emphysema of lung Erectile dysfunction Gross hematuria High risk medication use Idiopathic pulmonary fibrosis Interstitial lung disease Joint pain Left lower quadrant pain Obstructive sleep apnea P-ANCA titer positive Pneumocystis jiroveci pneumonia Pulmonary embolism Pulmonary fibrosis Pulmonary interstitial fibrosis Pulmonary nodule Surgical absence of teeth SVT (supraventricular tachycardia) Tobacco abuse Urolithiasis Surgical History H/O neck surgery H/O: vasectomy History of ankle surgery History of dental surgery History of facial surgery History of lung biopsy S/P lobectomy of lung Family History Father , AT AGE 78 Cancer Hypertension Mother Diabetes Brother Diabetes Sister Diabetes Father Cancer Prostate Social History Smoking and tobacco status: former smoker Quit status (tobacco): has quit using tobacco Year quit tobacco: 2020 - 2PPD x 40 Years Second hand smoke exposure: No Alcohol intake: never Marital status: Number of children: 3 Number of grandchildren: 4 Current occupational status: retired and disabled History of recent travel: No Dian/Latter-Day: Alevism Vitals/I&O/Wt Last Vital Signs Temp 97.4 F L 07/15/21 21:55 Pulse 105 H 07/16/21 00:41 Resp 20 H 07/16/21 00:41 BP 112/77 07/16/21 00:41 Pulse Ox 97 07/16/21 00:41 07/15/21 07/15/21 07/16/21 14:59 22:59 06:59 Intake Total 50 / 50 Balance 50 / 50 Weight last 48 hrs Weight 77.111 kg Physical Exam Const: COMMON NORMALS: alert GENERAL APPEARANCE: cooperative ORIENTATION/CONSCIOUSNESS: Yes awake HENMT: COMMON NORMALS: normocephalic, EAC's normal, Normal external nose present and moist oral mucous membranes HEAD & SCALP: normocephalic NOSE: Normal external nose present EXTERNAL AUDITORY CANAL: EAC's normal Neck/C-Spine: COMMON NORMALS: no meningeal signs Chest: CHEST: Yes Symmetrical chest wall rise Resp: AUSCULTATION: crackles and other (Coarse breath sounds) Cardio: COMMON NORMALS: regular rate, regular rhythm and No murmurs present (Cardio) RATE: regular rate RHYTHM: regular rhythm GI: COMMON NORMALS: Normal to inspection, nondistended, normoactive bowel sounds present, Soft to palpation and non-tender PALPATION: Yes Soft to palpation Extremity: COMMON NORMALS: no pedal edema Neuro: COMMON NORMALS: moves all extremities SENSORIUM/ORIENTATION: Yes alert MENINGEAL SIGNS: Yes no meningeal signs Psych: COMMON NORMALS: mental status grossly normal Skin: COMMON NORMALS: no wounds RASHES: no rashes Data : 07/15/21 22:00 07/15/21 22:00 Micro: Microbiology 07/15/21 22:56 Blood Culture - Preliminary Blood SPECIMEN COLLECTED 07/15/21 22:30 Blood Culture - Preliminary Blood SPECIMEN COLLECTED A&P Assessment and plan (1) Acute on chronic respiratory failure with hypoxia: Required 15 L of oxygen on presentation. Currently slightly better. Received a dose of Solu-Medrol. Is he is currently down to about 6 L by nasal cannula, subjectively feeling better, we will not continue IV steroids for now. Will resume 20 mg p.o. prednisone, but please reassess condition, in case there is additional worsening. Received a dose of cefepime. He reports a dry nonproductive cough which is somewhat worse this morning. COVID-19 PCR is pending. Will check procalcitonin before continuing additional antibiotics as he does not appear to have focal consolidation on chest x-ray as well. Duo nebs. Inhaled steroids. Continue chronic Bactrim prophylaxis. At home uses life 2000 ventilator. Status: Acute (2) Combined pulmonary fibrosis and emphysema (CPFE): Follows with pulmonology. Was considered for lung transplant. Status: Acute (3) Pulmonary hypertension: Status: Acute (4) History of pulmonary embolism: Past history of PE. Previously anticoagulation, currently on prophylactic dose of Eliquis. Status: Acute (5) Chronic respiratory failure with hypoxia: Reports to be on about 8-10 L per recent pulmonology note, but he states himself that recently has been on 5-8 L. Status: Acute (6) Coronary artery disease: Was just seen by cardiology in office on the of last month. Recommended to stand Plavix if possible, continued on Eliquis unless changed by pulmonology given high risk of deterioration in case of PE. Status: Acute Qualifiers: Coronary Disease-Associated Artery/Lesion type: [place] artery [place] vs. transplanted heart: [place] heart Associated angina: with unspecified angina Qualified Code(s): I25.119 - Atherosclerotic heart disease of [place] coronary artery with unspecified angina pectoris Attestations Medical Necessity Statement*: Place in observation for additional assessment of acute on chronic hypoxic respiratory failure. 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 transplanted heart: [place] heart Associated angina: with unspecified angina
[2021-07-16 02:35] LABS: Procalcitonin 0.07 ng/mL (0-0.5)
[2021-07-16] MEDS: sulfamethoxazole-trimeth DS 160-800 mg Tablet 1 TAB PO (03:30)
[2021-07-16] MEDS: apixaban 5 mg Tablet 2.5 MG PO ×3 (03:30→20:55)
[2021-07-16] MEDS: LORazepam 1 mg Tablet PO (03:30)
--- NOTE | 2021-07-16 04:02 | ECG_ITS ---
[facility] Test Date: 2021-07-16 Pat Name: Gregg Babcock Department: Room: 272 Gender: Male Elder Counselor: : 1955 Requested By: Miguelito Kothari Order Number: [id number] Jaelyn MD: Angel Ramirez M.D. Measurements Intervals [place] Rate: 92 P: 39 ID: [id number] QRS: -34 QRSD: 105 T: 18 QT: 348 QTc: 430 Interpretive Statements SINUS RHYTHM LEFT AXIS DEVIATION [QRS AXIS < -30] MINIMAL VOLTAGE CRITERIA FOR LVH, CONSIDER NORMAL VARIANT [MEETS CRITERIA IN ONE OF: R(aVL), S(V1), R(V5), R(V5/V6)+S(V1)] NONSPECIFIC T-WAVE ABNORMALITY Compared to ECG 07/16/2021 00:18:29 Sinus tachycardia no longer present T-wave abnormality still present Electronically Signed On 07-17-2021 9:22:53 CDT by Angel Ramirez M.D. [id number]
[2021-07-16] MEDS: ipratropium-albuterol 3 mL Neb INHALATION ×4 (04:06→21:21)
[2021-07-16 04:19] LABS: Troponin 5 6HR 15.28 ng/L (0-15)
[2021-07-16 04:20] LABS: Troponin 5 6HR Delta -4.72 ng/L (0-12)
[2021-07-16 04:29] LABS: Lactic Acid level (Lactate) 2.4 mmol/L (0.5-2.2)
[2021-07-16 05:31] LABS: Adenovirus Not Detected (NOT DETECT); Chlamydia Pneumoniae Not Detected (NOT DETECT); Coronavirus 229E,HKU1,NL63,OC4 Not Detected (NOT DETECT); Human Metapneumovirus Not Detected (NOT DETECT); Human Rhinovirus/Enterovirus Not Detected (NOT DETECT); Influenza A Not Detected (NOT DETECT); Influenza A H1 Not Detected (NOT DETECT); Influenza A H1-2009 Not Detected (NOT DETECT); Influenza A H3 Not Detected (NOT DETECT); Influenza B Not Detected (NOT DETECT); Mycoplasma Pneumoniae Not Detected (NOT DETECT); Parainfluenza Virus Type 1 Not Detected (NOT DETECT); Parainfluenza Virus Type 2 Not Detected (NOT DETECT); Parainfluenza Virus Type 3 Not Detected (NOT DETECT); Parainfluenza Virus Type 4 Not Detected (NOT DETECT); Respiratory Syncytial Virus A Not Detected (NOT DETECT); Respiratory Syncytial Virus B Not Detected (NOT DETECT); SARS-COV-2 Not Detected (NOT DETECT)
[2021-07-16] MEDS: escitalopram 10 mg Tablet 20 MG PO (08:32)
[2021-07-16] MEDS: pantoprazole DR 40 mg Tablet PO (08:32)
[2021-07-16] MEDS: dilTIAZem ER (24HR) 240 mg Capsule PO (08:32)
[2021-07-16] MEDS: clopidogrel 75 mg Tablet PO (08:32)
[2021-07-16] MEDS: predniSONE 20 mg Tablet PO (08:32)
[2021-07-16] MEDS: budesonide 0.5 mg/2 mL Neb INHALATION ×2 (08:40→21:21)
--- NOTE | 2021-07-16 09:15 | PM.MISC ---
Miscellaneous Note Note: This morning patient is stating that he is around his baseline, currently on 6 L He is endorsing his symptoms to anxiety Patient was able to tell me that his lung transplant team has to redo the process because of his insurance misinformation He is sitting at the bedside Eating breakfast Currently on 6 L Experiences dry cough Diminished bilateral airflow No active wheezing No use of respiratory sensory muscles He is not tripoding He does get short of breath after finishing 2-3 sentences Abdomen is soft No signs of edema Plan Continue on 6 L nasal cannula today Continue steroids Breathing regimen He is afebrile Leukocytosis 11.9 which could be secondary to use of steroids Is back to his baseline O2 requirement X-ray unremarkable COVID-19 negative Procalcitonin unremarkable Troponin downtrending Continue Eliquis Patient is on chronic Bactrim prophylactic therapy Continue prednisone 20 mg daily
--- NOTE | 2021-07-16 10:02 | PC.CHAP ---
Pastoral Care Encounter/Spiritual Assessment Type of Contact [] Declined acoustical installer visit [] Patient/Family/Request visit [] Outpatient visit [] Follow-up visit [] Physician referral [] Code/Alert [x] Routine visit [] Staff referral [] Actively dying [] Patient sleeping [] Family support [] [] Out of room [] Palliative care [] [] Receiving care in room [] Pre-surgical visit [] Trauma [] Long length of stay [] ICU visit [] Other: Relational/Emotional Strength [x] Patient feels connected with others/family/visitors/staff [] Distress [] Loneliness/isolation [] Abandonment Spirituality of Patient [x] Person of Dian [x] Attends Islam of their Dian [x] Believes in Prayer [x] Reads Bible or Sikhism materials [] There are Spiritual issues to be addressed Motion Picture Equipment Supervisor Interventions [x] Prayer [x] Active listening []x Non-anxious presence [x] Spiritual/emotional support [] Crisis/trauma care [] Spiritual counseling [] Bereavement support [] Provided bereavement packet [] Provided Bible/devotional materials [] Provided toy/stuffed animal, coloring book to patient or family member [] Provided Communion [] Anointing/[place] [] Salvation [x] Completed spiritual assessment [] Other: Impact on Illness or Injury [] Angry [] Fearful [] Anxious [] Often cries [] Exhaustion [] Unable to work [] Unable to attend jain [] Unable to walk/stand [] Unable to read [] Unable to drive [] Unable to eat/drink [] Unable to sleep [] Unable to be with family [] Patient intubated [] Other: Summary Time spent with patient 15 min
--- NOTE | 2021-07-16 10:29 | PC.PHAR ---
pts daughter mihir [phone] verified pts medications-mihir states the pt is not taking the metoprolol tartrate 25mg daily filled on 06/19/21 30d/s or using the dulera 200-5mcg filled on 06/20/21 -notes are made in the pharmacy comments
--- NOTE | 2021-07-16 15:28 | PC.NURSE ---
Patient had uneventful shift. Vitals stable. Patient on 6 L of oxygen. Patient urinating adequately. Will continue to monitor and veneer trimmer report to night nurse.
[2021-07-16] MEDS: acetaminophen 325 mg Tablet 650 MG PO (20:53)
[2021-07-16] MEDS: cyclobenzaprine 10 mg Tablet PO (22:19)
[2021-07-17] VITALS (11 sets, daily range): BP systolic 112–129; BP diastolic 63–75; PULSE 77–106; RESP 16–18; TEMP 36.3–36.7; O2SAT 72–96
[2021-07-17] MEDS: ipratropium-albuterol 3 mL Neb INHALATION ×3 (03:35→15:06)
[2021-07-17 05:07] LABS: Basophils % 0.1 %; Eosinophils % 0.1 %; Hematocrit 32.5 % (42.0-52.0); Hemoglobin 9.9 g/dL (11.7-16.6); Lymphocytes % 20.2 %; Mean Corpuscular HGB Conc 30.5 g/dL (30.0-36.0); Mean Corpuscular Hemoglobin 26.2 pg (28.0-34.0); Mean Platelet Volume 8.9 fL (7.4-10.4); Monocytes # 1.3 10^3/uL (0.2-0.9); Monocytes % 8.5 %; Neutrophils # 10.31 10^3/uL (1.8-7.7); Neutrophils % 70.2 %; Nucleated Red Blood Cells % 0 %; Platelet Count 227 10^3/cmm (130-400); Red Blood Count 3.78 10^6/uL (4.1-5.3); Red Cell Distribution Width 18.6 % (12.1-15.1); White Blood Count 14.7 10^3/uL (4.0-10.0)
[2021-07-17 05:23] LABS: Anion Gap 14.1 (5-19); Blood Urea Nitrogen 15 mg/dL (8-23); Carbon Dioxide 26 mmol/L (22-29); Chloride 103 mmol/L (98-107); Glomerular Filtration Rate 135.6 mL/min (90-130); Glucose 126 mg/dL (65-115); Osmolality Calculated 290 mOsm/kg (285-295); Potassium 4.1 mmol/L (3.5-5.1); Sodium 139 mmol/L (136-145)
[2021-07-17] MEDS: escitalopram 10 mg Tablet 20 MG PO (08:07)
[2021-07-17] MEDS: apixaban 5 mg Tablet 2.5 MG PO (08:07)
[2021-07-17] MEDS: predniSONE 20 mg Tablet PO (08:07)
[2021-07-17] MEDS: clopidogrel 75 mg Tablet PO (08:07)
[2021-07-17] MEDS: pantoprazole DR 40 mg Tablet PO (08:07)
[2021-07-17] MEDS: dilTIAZem ER (24HR) 240 mg Capsule PO (08:08)
[2021-07-17] MEDS: budesonide 0.5 mg/2 mL Neb INHALATION (08:14)
--- NOTE | 2021-07-17 12:54 | PM.DCS ---
Discharge Providers Date of Admission: 07/16/21 00:27 Date of Discharge: July 17, 2021 Attending Provider at Admission: Gonzalo Cobian Attending Provider at Discharge: Jesus Huynh MD Primary Care Provider: Daniel Nogueira DO Diagnoses at Discharge Discharge Diagnosis (1) Acute on chronic respiratory failure with hypoxia: Status: Acute (2) Combined pulmonary fibrosis and emphysema (CPFE): Status: Acute (3) Pulmonary hypertension: Status: Acute (4) History of pulmonary embolism: Status: Acute (5) Chronic respiratory failure with hypoxia: Status: Acute (6) Coronary artery disease: Status: Acute Qualifiers: Associated angina: with unspecified angina Coronary Disease-Associated Artery/Lesion type: [place] artery [place] vs. transplanted heart: [place] heart Qualified Code(s): I25.119 - Atherosclerotic heart disease of [place] coronary artery with unspecified angina pectoris Reason for Visit Reason for Visit: SOB\ Heart Rate up Hospital Course Hospital Course This is admitting note off Dr. Cobian Pleasant 66-year-old gentleman with combined pulmonary fibrosis and emphysema, chronic hypoxic respite failure, reports more recently on 5-8 L of oxygen by nasal cannula, on chronic steroids difficult to taper, more recently was decreased to 20 mg daily, presented to the hospital due to respiratory distress with acute on chronic hypoxic respiratory failure requiring 15 L of oxygen on presentation, reports became more short of breath and with more cough than usual starting this morning.? In ER received breathing treatment, dose of Solu-Medrol, fluid bolus, dose of cefepime.? Feeling somewhat better, and has come down on oxygen requirement.? Still with some intermittent cough. No chest pain or pressure.? On chronic anticoagulation with Eliquis, although for some reason on 2.5 mg.? D-dimer assessed and is not elevated. COVID-19 PCR pending.? He is fully vaccinated with history of Covid.? Ever since recovering from the infection reports he has had increased oxygen requirement. In terms of CODE STATUS, in case of cardiopulmonary arrest given he would most likely end up requiring intubation and mechanical ventilation in case of cardiac arrest and chest compressions, he states not to perform CPR or intubation/mechanical ventilation in such situation Hospital course Patient was admitted for management evaluation of acute on chronic hypoxic restaurant failure he does have underlying pulmonary fibrosis emphysematous pulmonary pathology. Currently awaiting response from lung transplant team based in [place]. During hospitalization he was not diagnosed with any pneumonia or PE. He remained afebrile. Patient symptoms are consistent with underlying worsening pulmonary parenchymal and small airway disease. With home O2 evaluation oxygen requirement has not changed significantly from his home requirement. I will go ahead and discharge him home today, requested him to use Ativan for anxiety. He can continue his steroids and Bactrim prophylaxis. D-dimer unremarkable. Physical Exam Narrative: He is sitting at the bedside Eating breakfast on 6 L Experiences dry cough Diminished bilateral airflow No active wheezing No use of respiratory sensory muscles He is not tripoding He does get short of breath after finishing 2-3 sentences Abdomen is soft No signs of adriana Discharge Data Studies Completed and Pending Completed Studies During Hospitalization Category Date Time Status XR chest 1V portable [id number] Urgent Exams 07/15/21 22:02 Completed Pending at discharge Category Date Time Status Basic Metabolic Panel AM LABS Lab 07/18/21 04:00 Ordered Basic Metabolic Panel AM LABS Lab 07/19/21 04:00 Ordered Blood Culture Stat Lab 07/15/21 22:56 Results Complete Blood Count w/Auto AM LABS Lab 07/18/21 04:00 Ordered Complete Blood Count w/Auto AM LABS Lab 07/19/21 04:00 Ordered Radiology Impressions Chest X-Ray 07/15/21 22:02 IMPRESSION: Chronic pulmonary fibrosis not significantly changed. Laboratory Results WBC 14.7 10^3/uL (4.0-10.0) H 07/17/21 04:50 RBC 3.78 10^6/uL (4.1-5.3) L 07/17/21 04:50 Hgb 9.9 g/dL (11.7-16.6) L 07/17/21 04:50 Hct 32.5 % (42.0-52.0) L 07/17/21 04:50 MCV 86.0 fl (80-94) 07/17/21 04:50 MCH 26.2 pg (28.0-34.0) L 07/17/21 04:50 MCHC 30.5 g/dL (30.0-36.0) 07/17/21 04:50 RDW 18.6 % (12.1-15.1) H 07/17/21 04:50 Plt Count 227 10^3/cmm (130-400) 07/17/21 04:50 MPV 8.9 fL (7.4-10.4) 07/17/21 04:50 Neut % (Auto) 70.2 % 07/17/21 04:50 Lymph % (Auto) 20.2 % 07/17/21 04:50 [place] % (Auto) 8.5 % 07/17/21 04:50 Eos % (Auto) 0.1 % 07/17/21 04:50 Baso % (Auto) 0.1 % 07/17/21 04:50 Neut # (Auto) 10.31 10^3/uL (1.8-7.7) H 07/17/21 04:50 Lymph # (Auto) 3.0 10^3/uL (0.8-4.8) 07/17/21 04:50 [place] # (Auto) 1.3 10^3/uL (0.2-0.9) H 07/17/21 04:50 Eos # (Auto) 0.0 10^3/uL (0.0-0.8) 07/17/21 04:50 Baso # (Auto) 0.0 10^3/uL (0.0-0.1) 07/17/21 04:50 Nucleated RBC % (auto) 0 % 07/17/21 04:50 Nucleated RBCs # 0.0 /100WBC 07/17/21 04:50 D-Dimer 0.40 ug/mIFEU (0-0.59) 07/16/21 00:36 Specimen Type Arterial 07/15/21 10:40 Sample Site Radial, right 07/15/21 10:40 ABG pH 7.45 (7.35-7.45) 07/15/21 10:40 ABG pCO2 40.4 mmHg (35-45) 07/15/21 10:40 ABG pO2 127.0 mmHg (80.0-100.0) H 07/15/21 10:40 ABG HCO3 28.2 mmol/L (22-26) H 07/15/21 10:40 ABG Base Excess 3.9 mmol/L (-2.0-2.0) H 07/15/21 10:40 Eric[place]on Test Pos 07/15/21 10:40 Hematocrit 26.9 % (42-52) L 07/15/21 10:40 Hgb O2 Saturation 96.6 % (95-100) 07/15/21 10:40 Carboxyhemoglobin 0.1 %THgb (0.4-20.1) L 07/15/21 10:40 Methemoglobin 1.3 % (0.4-1.5) 07/15/21 10:40 Total Hemoglobin 8.8 g/dL (14-18) L 07/15/21 10:40 O2 Delivery Device Nrb 07/15/21 10:40 O2 Liters/Min 12.0 % 07/15/21 10:40 Corporate Treasury Analyst ID Rieri 07/15/21 10:40 Sodium 139 mmol/L (136-145) 07/17/21 04:50 Potassium 4.1 mmol/L (3.5-5.1) 07/17/21 04:50 Chloride 103 mmol/L (98-107) 07/17/21 04:50 Carbon Dioxide 26 mmol/L (22-29) 07/17/21 04:50 Anion Gap 14.1 (5-19) 07/17/21 04:50 BUN 15 mg/dL (8-23) 07/17/21 04:50 Creatinine 0.6 mg/dL (0.7-1.2) L 07/17/21 04:50 GFR Calculation 135.6 mL/min (90-130) H 07/17/21 04:50 Glucose 126 mg/dL (65-115) H 07/17/21 04:50 Calculated Osmolality 290 mOsm/kg (285-295) 07/17/21 04:50 Lactic Acid 2.5 mmol/L (0.5-2.2) H 07/15/21 22:00 Lactic Acid (Sepsis) 2.4 mmol/L (0.5-2.2) H 07/16/21 03:45 Calcium 9.0 mg/dL (8.5-10.5) 07/17/21 04:50 Total Bilirubin 0.2 mg/dL (0.15-1.2) 07/15/21 22:00 AST 11 U/L (0-40) 07/15/21 22:00 ALT 19 U/L (0-41) 07/15/21 22:00 Alkaline Phosphatase 75 IU/L (40-130) 07/15/21 22:00 Troponin T Baseline 20 ng/L (0-15) H 07/15/21 22:00 Troponin T 120 Minute 21.88 ng/L (0-15) H 07/16/21 00:15 Delta Troponin T 1.88 ABS# (0-10) 07/16/21 00:15 Troponin T Hi Sens 6Hr 15.28 ng/L (0-15) H 07/16/21 03:45 Troponin T Hi Sens 6Hr Delta -4.72 ng/L (0-12) L 07/16/21 03:45 NT-Pro-B Natriuret Pep 73 pg/mL (0-125) 07/15/21 22:00 Total Protein 5.8 g/dL (6.6-8.7) L 07/15/21 22:00 Albumin 3.6 g/dL (3.5-5.2) 07/15/21 22:00 Globulin 2.2 g/dL (1.3-4.6) 07/15/21 22:00 Procalcitonin 0.07 ng/mL (0-0.5) 07/16/21 00:15 Coronavirus 229E (PCR) Not detected (NOT DETECT) 07/16/21 00:37 SARS-CoV-2 (PCR) Not detected (NOT DETECT) 07/16/21 00:37 Vitals Last Vital Signs Temp 97.4 F L 07/17/21 11:25 Pulse 96 07/17/21 11:25 Resp 18 07/17/21 11:25 BP 112/75 07/17/21 11:25 Pulse Ox 72 L 07/17/21 11:27 Discharge Plan Discharge Patient Disposition: Home Condition: Stable Prescriptions: Continued diltiazem HCl 240 mg capsule,extended release 24hr 240 mg PO DAILY Qty: 90 3RF (DME) oxygen-air delivery systems Device See Rx Instructions .Route 0RF Rx Instructions: As directed - 4L at rest & 8L with exertion (DME) [id number] Ventilator 0 .Route .MEDSUPPLY 0RF prednisone 10 mg tablet 20 mg PO QAM 0RF clopidogrel 75 mg tablet 75 mg PO DAILY 90 Days Qty: 90 1RF nitroglycerin [Nitrostat] 0.4 mg tablet, sublingual 0.4 mg sublingual Q5M PRN (Reason: chest pain) Qty: 25 3RF Rx Instructions: do not exceed 3 doses per episode acetaminophen [Tylenol] 325 mg tablet 650 mg PO Q6H PRN (Reason: pain) Qty: 240 3RF atorvastatin 20 mg tablet 20 mg PO DAILY 90 Days Qty: 90 3RF sulfamethoxazole-trimethoprim [Bactrim DS] 800-160 mg tablet 1 tab PO .COMPLEX 90 Days Qty: 45 6RF Rx Instructions: 1 tab PO Friday, Friday, Friday Esbriet 801 mg tablet 801 mg PO TID Qty: 90 11RF Rx Instructions: administer with food at the same time(s) each day cyclobenzaprine 10 mg tablet 10 mg PO BEDTIME PRN (Reason: Muscle Spasm) 0RF albuterol sulfate [ProAir HFA] 90 mcg/actuation Hfa Aerosol Inhaler 2 puff INHALATION Q4H PRN (Reason: Shortness Of Breath) 0RF fluticasone propionate 50 mcg/actuation spray,suspension 2 spray INTRANASAL DAILY 0RF lorazepam [Ativan] 1 mg Tablet 1 mg PO QPM 0RF melatonin 10 mg tablet 10 mg PO BEDTIME 0RF loratadine 10 mg Tablet 10 mg PO DAILY 0RF ondansetron 4 mg tablet,disintegrating 4 mg PO Q8H PRN (Reason: nausea and vomiting) Qty: 7 0RF sildenafil 25 mg tablet 25 mg PO PRN PRN (Reason: sexual activity) 0RF Rx Instructions: administer 1 hour before sexual activity pantoprazole 40 mg Tablet,Delayed Release (Dr/Ec) 40 mg PO DAILY Qty: 30 0RF benzonatate [Tessalon Perles] 100 mg capsule 100 mg PO TID 0RF escitalopram oxalate 20 mg tablet 20 mg PO QAM 0RF Eliquis 2.5 mg tablet 2.5 mg PO BID 0RF Vitamin C 500 mg tablet 500 mg PO BID 0RF Colace 100 mg Capsule 100 mg PO QAM 0RF multivitamin with iron-mineral Tablet 1 tab PO QAM 0RF Vitamin D3 25 mcg (1,000 unit) tablet 1,000 unit PO DAILY 0RF Breztri Aerosphere 160-9-4.8 mcg/actuation HFA aerosol inhaler 2 inh INHALATION BID 0RF Probiotic 1 cap PO DAILY 0RF ipratropium-albuterol 0.5 mg-3 mg(2.5 mg base)/3 mL solution for nebulization 3 ml inhalation Q6H 0RF Discharge Orders: Discharge Order (Routine); Ordered 07/17/21 Ordered By: Jesus Huynh Other Ambulatory Orders: Physical Therapy Outpatient in Home Eval and Treat Other (Order) Timeframe: 3 Months Facility: [facility] - Location: Physical Therapy Ordered By: Jesus Huynh Referrals: Daniel Nogueira DO [Primary Care Provider] - 07/26/21 2:40 pm Discharge Diet: Cardiac Discharge Activity: As per cardiac/pulm rehab instructions Patient Instructions: Pulmonary Fibrosis (GEN), Using Oxygen at Home (GEN), Opioid Safety Discharge Attestations Time Spent in Discharge Care*: less than 30 min Status at Discharge: Cognitive status at discharge: cognitively intact, Behavioral status at discharge: cooperative, Quality Metrics Clinical Quality Measures [ No reported AMI, CVA or VTE this stay] Coding Level of Care Code Acute Chg FW DC note Diagnoses Acute on chronic respiratory failure with hypoxia J96.21 Combined pulmonary fibrosis and emphysema (CPFE) J43.9; J84.10 Pulmonary hypertension I27.20 History of pulmonary embolism Z86.711 Chronic respiratory failure with hypoxia J96.11 Coronary artery disease I25.119 Associated angina: with unspecified angina Coronary Disease-Associated Artery/Lesion type: [place] artery [place] vs. transplanted heart: [place] heart
--- NOTE | 2021-07-17 17:06 | PC.NURSE ---
Discharge teaching and education give to patient, all questions were answered at this time. IV discontinued. Belongings accounted for. Patient had own oxygen tank on discharge.
== END 2021-07-17 17:08 | disposition home or self-care (01) ==
LOC: ER 07-16 00:26 → MEDSURG 07-16 02:06
PROVIDERS: Admitting Provider Internal Medicine; Emergency Provider Emergency Medicine; PCP Family Medicine; Visit Provider Internal Medicine
DX: J96.21 Acute and chronic respiratory failure with hypoxia (principal); J43.9 Emphysema, unspecified; J84.10 Pulmonary fibrosis, unspecified; I27.20 Pulmonary hypertension, unspecified; Z86.711 Personal history of pulmonary embolism; J96.11 Chronic respiratory failure with hypoxia; I25.119 Atherosclerotic heart disease of native coronary artery with unspecified angina pectoris; Z99.81 Dependence on supplemental oxygen; Z79.01 Long term (current) use of anticoagulants; Z86.16 Personal history of COVID-19; E11.9 Type 2 diabetes mellitus without complications; G47.33 Obstructive sleep apnea (adult) (pediatric); Z87.891 Personal history of nicotine dependence
CPT/HCPCS: 36415; 36600; 71045; 80048; 80053; 82805; 83605; 83880; 84145; 84484; 85025; 85378; 87040; 87635; 93005; 94640; 96365; 96375; 99285; G0378; J0692; J2930; J7040; J7512; J7611; J7626

== ENCOUNTER 2021-08-12 06:00 | Outpatient (RCR) | payer OTHER, SELFPAY | END 2021-09-11 23:59 | disposition home or self-care (01) | LOC: PULRHB 06:00 | PROVIDERS: PCP Family Medicine; Visit Provider Internal Medicine Critical Care Medicine | DX: J84.9 Interstitial pulmonary disease, unspecified (principal) | CPT/HCPCS: G0237; G0238 ==

== ENCOUNTER 2021-09-06 06:58 | Outpatient (CLI) | payer OTHER, SELFPAY ==
[2021-09-04 09:47] LABS: Basophils % 0.4 %; Eosinophils % 0.3 %; Hematocrit 37.3 % (42.0-52.0); Hemoglobin 11.4 g/dL (11.7-16.6); Lymphocytes # 3.5 10^3/uL (0.8-4.8); Lymphocytes % 31.4 %; Mean Corpuscular HGB Conc 30.6 g/dL (30.0-36.0); Mean Corpuscular Hemoglobin 25.6 pg (28.0-34.0); Mean Corpuscular Volume 83.6 fl (80-94); Mean Platelet Volume 8.3 fL (7.4-10.4); Monocytes # 0.7 10^3/uL (0.2-0.9); Monocytes % 6.3 %; Neutrophils % 60.8 %; Nucleated Red Blood Cells % 0 %; Platelet Count 273 10^3/cmm (130-400); Red Blood Count 4.46 10^6/uL (4.1-5.3); Red Cell Distribution Width 15.4 % (12.1-15.1); White Blood Count 11.2 10^3/uL (4.0-10.0)
[2021-09-04 10:03] LABS: INR 1.03 (0.83-1.21); Prothrombin Time (Patient) 13.8 Seconds (12.0-15.1)
[2021-09-04 10:12] LABS: Alanine Aminotransferase 20 U/L (0-41); Albumin Level 3.9 g/dL (3.5-5.2); Alkaline Phosphatase 77 IU/L (40-130); Aspartate Amino Transferase 15 U/L (0-40); Blood Urea Nitrogen 15 mg/dL (8-23); Calcium 9.4 mg/dL (8.5-10.5); Carbon Dioxide 31 mmol/L (22-29); Chloride 100 mmol/L (98-107); Globulin 2.3 g/dL (1.3-4.6); Glomerular Filtration Rate 113.5 mL/min (90-130); Glucose 163 mg/dL (65-115); Osmolality Calculated 292 mOsm/kg (285-295); Sodium 139 mmol/L (136-145); Total Bilirubin 0.2 mg/dL (0.15-1.2); Total Protein 6.2 g/dL (6.6-8.7)
[2021-09-04 10:18] LABS: Procalcitonin 0.07 ng/mL (0-0.5)
[2021-09-06 07:30] VITALS: BP 122/81; PULSE 99; RESP 24; TEMP 36.7; O2SAT 98; BMI 23.4
--- NOTE | 2021-09-06 07:30 | XACV_ITS ---
Exam Room: 2 Ht: 180 cm Wt: 76 kg BSA: 1.96 m2 Gender: Male : 1955 Any Known Allergies: Other Exam Priority: Routine Procedure(s): Procedure Description: Diagnostic procedure Procedure Description: Left Heart Catheterization Procedure Description: Right Heart Catheterization Procedure Description: O2 saturation Procedure Description: Miscellaneous Procedure Description: Angio-Seal Procedure Description: Coronary Angiography Diagnostic Cath Status: Elective Diagnostic Findings * INDICATION: 66-year-old man with past medical history of emphysema and pulmonary fibrosis being seen at the [facility] for possible lung transplant has been referred by his biochemistry technician, Dr. Mayfield for a right and left heart cath as work-up for lung transplant evaluation. Patient has chronic shortness of breath. He is currently on 8 L oxygen. * No significant disease noted in the Left Main, Left Anterior Descending, Right, or Circumflex coronary arteries. Patent LAD stent. * Right heart cath findings: RA pressure: 13/10/9 mmHg RV pressure: 33/3/8 mmHg PA pressure: 30/15/21 mmHg Wedge pressure: 15/15/14 mmHg Transpulmonary gradient: 6 mmHg AO sat: On 8 L, 100% PA sat: On 8 L, 72% Cardiac output: 6 L/min Cardiac index: 3 PVR: 1 Wood units. * Coronary angiography shows right dominance. Conclusions 1. No significant disease noted in the Left Main, Left Anterior Descending, Right, or Circumflex coronary arteries. Patent LAD stent. 2. Normal right and left sided cardiac pressures. No significant pulmonary hypertension. Recommendations * Aggressive risk factor modification. * Outpatient cardiology follow up in 4 weeks. Interventional RX Recommendation: medical therapy and/or counseling Diagnostic RX Recommendation: medical therapy and/or counseling Pressures Phase:Rest AO : 99 / 78 ( 89 ) @ 10:31:00 AM 105 / 85 ( 96 ) @ 10:31:00 AM 124 / 78 ( 99 ) @ 10:38:00 AM 126 / 80 ( 101 ) @ 10:38:00 AM LV : 134 / -2 / 24 @ 10:37:00 AM 128 / -4 / 24 @ 10:37:00 AM 129 / -5 / 18 @ 10:38:00 AM RV : 33 / 3 / 8 @ 10:26:00 AM PA : 30 / 15 ( 21 ) @ 10:25:00 AM 31 / 17 ( 23 ) @ 10:25:00 AM RA : a wave = 13 v wave = 10 mean = 9 @ 10:28:00 AM PCW : a wave = 14 v wave = 14 mean = 13 @ 10:24:00 AM a wave = 15 v wave = 15 mean = 14 @ 10:24:00 AM O2 Content Phase:Rest PA : O2 Content O2: 72.3 @ 10:31:00 AM Saturations Phase:Rest AO : 100 @ 10:31:00 AM RA : 72 @ 10:38:00 AM RV : 72 @ 10:38:00 AM PA : 72 @ 10:31:00 AM Cardiac Output Phase:Rest Queta : 6 @ 9:51:11 AM Queta Cardiac Index: 3 @ 9:51:11 AM Flow Phase:Rest Qp : 6 @ 9:51:11 AM Qs : 6 @ 9:51:11 AM Valves Phase:DefaultPhase AV : 5.0 @ 9:51:11 AM AV Mean Gradient: 9.0 @ 9:51:11 AM 9.0 @ 9:51:11 AM AV Flow: 293 @ 9:51:11 AM AV Area: 2.2 @ 9:51:11 AM AV Area Index: 1.13 @ 9:51:11 AM Clinical Evaluation EBL: 5mL-10mL Procedural Details Procedure Consent Obtained. Pre-Procedure Time Out. Identified patient by full name and date of as verbalized by the patient/guarantor. Does the consent match the physician's order: Yes. Accurate & Complete Informed Consent: Yes. Inpatient/Outpatient History & Physical on Chart: Yes. If H&P is completed, is and addenduem needed: No; If yes, is the addendum complete: N/A. Visualize and Verify Site with Patient/Guarantor: N/A. Relevant Radiology Images available: Yes. Pre-op teaching completed and patient verbalized understanding. The risks, benefits, and alternatives of sedation and/or procedure were discussed by physician. The patient agrees to continue. Procedure started. [facility] Clinical Fraility Score: 7: Severely Frail. Ore Storage Drier Indications: Other. Correct patient, site and procedure confirmed by cath team. PERRLA. Strong, equal hand animal rehabilitator bilaterally. Lungs clear x 5 lobes. IV Site on Arrival: 20 gauge in the right anticubital. IV Fluids: 0.9% NaCl at KVO. 0 mL infused prior to brick and blocker aid labor. Pre Procedural Pulses: bilateral dorsalis pedis was 2+. Pre Procedural Pulses: bilateral posterior tibial was 2+. Oxygen started at 8liters/min via nasal canula. bilateral groins was prepped with chloroprep then draped in the usual sterile fashion. right radial was prepped with chloroprep then draped in the usual sterile fashion. Physician notified. Baseline sample Acquired. HR: 115 BPM. IV Site on Arrival: 18 gauge in the right anticubital. Physician arrived. Physician scrubbed in. Immediate Pre-Procedure Time Out. Correct Patient: Yes; Correct Procedure: Yes; Correct Site: Yes; Correct Patient Position: Yes; Correct Supplies: Yes; Dried Flammable Prep: Yes; Blood Products Available: N/A;. Lidocaine 1% infiltrated to the right brachial. sheath wire inserted through the bracial IV catheter. IV catheter out OTW. wire out. Ultrasound used to obtain venous access. Unable to obtain radial and brachial access. MD attempting to gain access in the Femoral artery and vein. Lidocaine 1% infiltrated to the right groin. Ultrasound used to obtain access. Venous access obtained with a micropuncture set. Arterial access obtained with micropuncture set. [place]-King[place] MON catheter inserted. Oximetry samples were obtained. Normal venous range: 60-85%. Normal arterial range: 95-100%. Pressure measurements obtained. [place]-Kinga out. A 5 greenlandic JL4 catheter in over wire. Multiple views taken of left coronary artery. Catheter removed over the standard wire. A 5 greenlandic JR4 catheter in over wire. Multiple views taken of right coronary artery. EDP Sample taken: LV 134/-3,24; HR: 78 BPM; SpO2: 98%. Pullback taken: LV Off; AO Off; Mean: , Peak to Peak: , SEP: ; HR: 80 BPM; SpO2: 98%. EDP Sample taken: LV 128/-4,24; HR: 69 BPM; SpO2: 98%. Pullback taken: LV 129/-6,18; AO 124/78(99); Mean: 9mmHg, Peak to Peak: 5mmHg, SEP: 21sec/min; HR: 81 BPM; SpO2: 98%. Catheter removed over the standard wire. A Right femoral angiogram was performed to determine safe placement of closure device. Lidocaine 1% infiltrated to the right groin. A Angio-Seal VIP ([place]) was successful obtaining hemostatsis at the Right Femoral artery insertion site. A Manual Compression was successful obtaining hemostatsis at the Right Femoral vein insertion site. Post Procedure: Pulses reassessed and unchanged. PERRLA. Strong, equal hand animal rehabilitator bilaterally. No VTE prophylaxis required. Medication's Wasted: Other = Fentanyl 37.5 mg. Medication's Wasted: Lidocaine 1% = 2 mL. Total IV fluids: 63 mL. Medication's Wasted: Nitro = 50 mg. Complications: None. Estimated blood loss: 5mL-10mL. Responsiveness - Normal response to verbal stimuli; alert and oriented, PERRLA. Airway - Unaffected, no intervention required; spontaneous ventilation. Circulation: W/N/L, pulses unchanged. Nausea/Vomiting: No. Medication's Wasted: Heparin = 1000 units. Procedure completed. Patient transferred by bed to ICU. Access Site Site: Right Femoral vein Sheath Size: 6 Fr Hemostasis Method: Manual Compression Hemostasis Success: Successful Site: Right Femoral artery Sheath Size: 6 Fr Hemostasis Method: Angio-Seal VIP ([place]) Hemostasis Success: Successful Procedure Medications Start: 8:52 AM Stop: 8:52 AM Medication: Fentanyl Amount: 12.5 mcg Route: I.V. Start: 9:00 AM Stop: 9:00 AM Medication: Fentanyl Amount: 12.5 mcg Route: I.V. Start: 9:02 AM Stop: 9:02 AM Medication: Versed Amount: 1 mg Route: I.V. Start: 9:11 AM Stop: 9:11 AM Medication: Versed Amount: 1 mg Route: I.V. Start: 9:17 AM Stop: 9:17 AM Medication: Fentanyl Amount: 12.5 mcg Route: I.V. Start: 9:18 AM Stop: 9:18 AM Medication: Versed Amount: 1 mg Route: I.V. Start: 9:30 AM Stop: 9:30 AM Medication: Versed Amount: 1 mg Route: I.V. I, the attending physician, have reviewed and verified all procedure medications. Yes, all medications given per verbal order History/Risk Factors Hypertension: No Dyslipidemia: No Peripheral Arterial Disease (PAD): No Myocardial Infarction (OR): No Obesity: No Renal Disease: No Tobacco Use: Former Prior Interventions PCI: Yes CABG: No Valve Surgery: No Date of PCI: 05/01/2020 Report Signatures Finalized by Ric Rosa MD on 09/15/2021 06:32 PM
--- NOTE | 2021-09-06 08:39 | W.PM.OPSUD ---
Surgery/Procedure H&P Update DATE OF PROCEDURE: September 06, 2021 DATE H&P PERFORMED: 04/18/20 PREOP DIAGNOSIS: Bilateral ureteral calculi PLANNED PROCEDURE: Operation Date: 09/06/21 08:30 Proposed Procedures p Cardiac Catheterization(Right) - Ric Rosa M.D
[2021-09-06 10:05] VITALS: BP 112/79; O2SAT 100
[2021-09-06 10:15] VITALS: BP 101/75; PULSE 80; RESP 23
[2021-09-06 10:30] VITALS: BP 106/72; PULSE 78; RESP 17
[2021-09-06 10:45] VITALS: BP 110/73; PULSE 74; RESP 18; O2SAT 100
[2021-09-06] MEDS: acetaminophen 325 mg Tablet 650 MG PO (11:17)
[2021-09-06 12:52] VITALS: PULSE 78; O2SAT 100
[2021-09-06] MEDS: fentaNYL 50 mcg/mL INJ 2mL IVP (12:52)
--- NOTE | 2021-09-06 15:00 | PC.NURSE ---
ambulate pt ambulate shortly. he is short of breath on activity which is chonic. he uses 8-12 L of oxygen per oxymask. pt denies any pain on right groin. right femoral access site dressing is intact. no hematoma or bleeding or swelling. Dr roca.
--- NOTE | 2021-09-06 17:18 | P.HP_ITS ---
Same Day Surgery H&P Indication for Procedure/HPI DATE OF PROCEDURE: September 06, 2021 CHIEF COMPLAINT/INDICATIONFOR SURGICAL PROCEDURE: Pre lung transplant evaluation/pulmonary hypertension/pulmonary hypertension/emphysema and pulmonary fibrosis PREOP DIAGNOSIS: Pre lung transplant evaluation/pulmonary hypertension/pulmonary hypertensio PLANNED PROCEDURE: Operation Date: 09/06/21 08:30 Proposed Procedures p Cardiac Catheterization(Right+ left heart cath) - Ric Rosa M.D 66-year-old man with past medical history of emphysema and pulmonary fibrosis being seen at the [facility] for possible lung transplant has been referred by his chainstitch zipper setter, Dr. Mayfield for a right and left heart cath as work-up for lung transplant evaluation. Patient has chronic shortness of breath. He is currently on 8 L oxygen. ROS CONSTITUTIONAL: No fever chills weight loss or gain or night sweats. [] HEENT: Normocephalic, atraumatic.[] RESPIRATORY: Has shortness of breath CARDIOVASCULAR: No chest pain GI: no nausea vomiting diarrhea. [] GUN STRIPER: No numbness, tingling, weakness or loss of function in any part of the body. [] MUSCULOSKELETAL: No knee or joint pain or rashes. [] Medications/Allergies* Home Medications Medication Instructions Recorded Confirmed Type albuterol sulfate 90 mcg/actuation 2 puff INHALATION Q4H PRN 09/12/20 09/05/21 History aerosol inhaler (ProAir HFA) fluticasone propionate 50 2 spray INTRANASAL DAILY 09/12/20 09/05/21 History mcg/actuation nasal spray,suspension lorazepam 1 mg tablet (Ativan) 1 mg PO QPM 09/13/20 09/06/21 History [id number] Ventilator 10/02/20 09/05/21 History oxygen-air delivery systems 10/02/20 09/05/21 History cyclobenzaprine 10 mg tablet 10 mg PO BEDTIME PRN tab 12/08/20 09/05/21 History loratadine 10 mg tablet 10 mg PO DAILY 01/21/21 09/05/21 History melatonin 10 mg tablet 10 mg PO BEDTIME 01/21/21 09/06/21 History sildenafil 25 mg tablet 25 mg PO PRN PRN 04/18/21 09/05/21 History benzonatate 100 mg capsule 100 mg PO TID 05/30/21 09/06/21 History (Tessalon Perles) prednisone 10 mg tablet 20 mg PO QAM tab 06/25/21 09/06/21 History Probiotic 1 cap PO DAILY 07/16/21 09/06/21 History apixaban 2.5 mg tablet (Eliquis) 2.5 mg PO BID 07/16/21 09/05/21 History ascorbic acid (vitamin C) 500 mg 500 mg PO BID 07/16/21 09/05/21 History tablet (Vitamin C) budesonide 160 mcg-glycopyr 9 2 inh INHALATION BID 07/16/21 09/06/21 History mcg-formot 4.8 mcg/actuation HFA inhaler (Breztri Aerosphere) cholecalciferol (vitamin D3) 25 1,000 unit PO DAILY 07/16/21 09/06/21 History mcg (1,000 unit) tablet (Vitamin D3) docusate sodium 100 mg capsule 100 mg PO QAM 07/16/21 09/06/21 History (Colace) ipratropium 0.5 mg-albuterol 3 mg 3 ml INHALATION Q6H 07/16/21 09/06/21 History (2.5 mg base)/3 mL nebulization soln multivitamin with iron-mineral 1 tab PO QAM 07/16/21 09/06/21 History citalopram 20 mg tablet 20 mg PO DAILY 09/06/21 09/06/21 History Allergies/Adverse Reactions Allergy/AdvReac Type Severity Reaction Status Date / Time insect venom Allergy ALGY-Difficulty Verified 07/12/21 15:46 Swallowing Current Medications: Generic Name Dose Route Start Last Admin Trade Name Freq PRN Reason Stop Dose Admin Acetaminophen 650 mg 09/06/21 10:30 09/06/21 11:17 Acetaminophen 325 Mg Tablet PO 650 mg Q6H PRN Administration MILD PAIN Fentanyl 50 mcg 09/06/21 10:30 09/06/21 12:52 Fentanyl 50 Mcg/Ml Inj 2ml IVP 50 mcg PRN PRN Administration PAIN Sodium Chloride 1,000 mls @ 50 mls/hr 09/06/21 07:30 09/06/21 11:17 Sodium Chloride 0.9% IV 09/07/21 03:29 Not Given .Q20H ONE Pertinent History/Comorbid Conditions* Medical History (Updated 08/20/21 @ 13:54 by Joaquín Mayfield MD) Abnormal stress test Acute and chronic respiratory failure with hypoxia Acute hypoxemic respiratory failure Acute on chronic respiratory failure with hypoxia 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 Aspergillosis Atrial tachycardia Chronic respiratory failure with hypoxia Combined pulmonary fibrosis and emphysema (CPFE) COPD (chronic obstructive pulmonary disease) COPD (chronic obstructive pulmonary disease) Coronary artery disease Cubital tunnel syndrome on right Diabetes Diabetes Emphysema of lung Erectile dysfunction Gross hematuria High risk medication use History of pulmonary embolism Idiopathic pulmonary fibrosis Interstitial lung disease Joint pain Left lower quadrant pain Obstructive sleep apnea P-ANCA titer positive Pneumocystis jiroveci pneumonia Pulmonary embolism Pulmonary fibrosis Pulmonary hypertension Pulmonary interstitial fibrosis Pulmonary nodule Surgical absence of teeth SVT (supraventricular tachycardia) Tobacco abuse Urolithiasis Surgical History (Updated 05/09/20 @ 13:44 by LANDY Abreu) H/O neck surgery H/O: vasectomy History of ankle surgery History of dental surgery History of facial surgery History of lung biopsy S/P lobectomy of lung Family History (Updated 04/19/19 @ 07:57 by Jennifer Mojica LPN) Father Father, AT AGE 78 Diabetes Mother Brother Sister Cancer Father Father Prostate Hypertension Father Social History Smoking and tobacco status: former smoker Quit status (tobacco): has quit using tobacco Year quit tobacco: 2020 - 2PPD x 40 Years Second hand smoke exposure: No Alcohol intake: never Marital status: Number of children: 3 Number of grandchildren: 4 Current occupational status: retired and disabled History of recent travel: No Dian/Buddhist: Religious Pertinent Exam Findings alert, oriented x 3, clear to auscultation bilaterally and regular rate & rhythm GENERAL: Patient is alert, awake and oriented x3. [] NECK: No jugular vein distension. [] HEENT: No cyanosis. No icterus. No pallor. [] HEART: Regular S1 and S2. No murmur, rub or gallop. [] LUNGS: Has bilateral crackles ABDOMEN: Soft, nontender and nondistended. Positive bowel sounds. No guarding, rebound or tenderness. [] CENTRAL NERVOUS SYSTEM: Grossly nonfocal. [] EXTREMITIES: Lower extremities with no edema bilaterally. Pulses palpable in the lower extremities, both dorsalis pedis and posterior tibial. [] Conscious Sedation Assessment PATIENT ASSESSED PRIOR TO SEDATION, WITH NO CHANGE NOTED: Yes AIRWAY EVAL/ANESTHESIA PLAN: ASA IV, Monitored Anesthesia, Local Anesthesia, Risks, benefits & alternatives of sedation and/or procedure discussed and Patient agrees to continue as planned Recommendations Surgery/Procedure today (Right and left heart cath with possible percutaneous coronary intervention) Coding Level of Care Code Acute Convertible Sofa Bedspring Tester for Chelsea Albert
--- NOTE | 2021-09-06 19:16 | PC.NURSE ---
Discharge Note Patient discharged to home via ptivate vehicle accompanied by family. Discharge instructions reviewed with patient and/or insurance sales representative. Instructed pt that he needs to take his Jez mendoza at 9 pm as discuss w/Dr Rosa. Mobile pharmacy medications and/or prescriptions provided. Belongings/home medications returned.
== END 2021-09-06 18:15 | disposition home or self-care (01) ==
LOC: CCL 06:58 → ICU 09:55
PROVIDERS: Internal Medicine Critical Care Medicine; PCP Family Medicine; Visit Provider Internal Medicine
DX: Z01.818 Encounter for other preprocedural examination (principal); I27.20 Pulmonary hypertension, unspecified; J43.8 Other emphysema; J84.10 Pulmonary fibrosis, unspecified; R25.1 Tremor, unspecified; Z87.891 Personal history of nicotine dependence; E11.9 Type 2 diabetes mellitus without complications; G47.33 Obstructive sleep apnea (adult) (pediatric)
CPT/HCPCS: 36415; 80048; 80053; 84145; 85025; 85610; 93453; 96360; 99152; 99153; C1751; C1769; C1887; C1894; J1644; J2250; J3010; J3490; J7030; Q9967

== ENCOUNTER 2021-09-12 06:00 | Outpatient (RCR) | payer OTHER, SELFPAY | END 2021-10-11 23:59 | disposition home or self-care (01) | LOC: PULRHB 06:00 | PROVIDERS: PCP Family Medicine; Visit Provider Internal Medicine Critical Care Medicine | DX: J98.4 Other disorders of lung (principal) | CPT/HCPCS: G0237; G0238; G0239 ==

== ENCOUNTER → 2021-09-18 09:39 | Outpatient (BNVA) | payer OTHER, SELFPAY | PROVIDERS: PCP Family Medicine; Visit Provider Nurse Practitioner Family | DX: I27.20 Pulmonary hypertension, unspecified (principal) | CPT/HCPCS: 36415; 80048; 85025 ==

== ENCOUNTER 2021-10-12 06:00 | Outpatient (RCR) | payer OTHER, SELFPAY | END 2021-11-11 23:59 | disposition home or self-care (01) | LOC: PULRHB 06:00 | PROVIDERS: PCP Family Medicine; Visit Provider Internal Medicine Critical Care Medicine | DX: J84.9 Interstitial pulmonary disease, unspecified (principal) | CPT/HCPCS: G0239 ==

== ENCOUNTER → 2021-10-17 14:13 | Outpatient (BNVA) | payer OTHER, SELFPAY | PROVIDERS: PCP Family Medicine; Visit Provider Family Medicine | DX: R19.7 Diarrhea, unspecified (principal) | CPT/HCPCS: 87493; 87506 ==

== ENCOUNTER 2021-10-30 15:07 | Outpatient (CLI) | payer OTHER, SELFPAY ==
--- NOTE | 2021-10-30 15:30 | XR_ITS ---
WS: [id number] SCREENING DEXA SCAN [employer] CLINICAL INFORMATION: Evaluation for osteoporosis COMPARISON: None. FINDINGS: The L1-L4 bone mineral density measures 1.03. This corresponds to a T score score of -1.8 and Z score of -1.2. Left femoral neck bone mineral density measures 0.918 g/cm2. This corresponds to a T score of -1.3 an d Z score of -0.7. Right femoral neck bone mineral density measures 0.877 g/cm2. This corresponds to a T score -1.6of an d Z score of -1.0. Mean femoral neck bone mineral density measures 0.897 g/cm2. This corresponds to a T score of -1.4 an d Z score of -0.8. XR/XR DEXA axial skeleton* [id number] IMPRESSION: Osteopenia Patient's FRAX calculated 10 year probability for major osteoporotic fracture i s 12.7 % and osteoporotic hip fracture is 3.5%.
== END 2021-10-30 15:08 | disposition home or self-care (01) ==
PROVIDERS: PCP Family Medicine; Visit Provider Internal Medicine Critical Care Medicine
DX: Z01.818 Encounter for other preprocedural examination (principal); Z92.241 Personal history of systemic steroid therapy
CPT/HCPCS: 77080

== ENCOUNTER → 2022-03-05 11:55 | Day surgery (SDC) | payer OTHER, SELFPAY ==
[2022-03-05 12:00] VITALS: BP 140/84; PULSE 88; RESP 18; TEMP 37.1; O2SAT 99
--- NOTE | 2022-03-05 12:00 | SUR.OPER ---
Pt to GI Infusions for lab draw and removal of PICC line. Right PICC removed, 42 cm in length with cath intact. Pt tolerated well. Pressure held for approx 5 minutes. No hematoma or bleeding noted. Pt educated on signs of symptoms of infection and PE.
[2022-03-05 12:25] LABS: Basophils % 0.1 %; Hematocrit 26.1 % (42.0-52.0); Hemoglobin 8.2 g/dL (11.7-16.6); Lymphocytes # 1.6 10^3/uL (0.8-4.8); Lymphocytes % 16.9 %; Mean Corpuscular HGB Conc 31.4 g/dL (30.0-36.0); Mean Corpuscular Hemoglobin 30.1 pg (28.0-34.0); Monocytes # 0.5 10^3/uL (0.2-0.9); Monocytes % 5.4 %; Neutrophils # 6.05 10^3/uL (1.8-7.7); Neutrophils % 63.5 %; Nucleated Red Blood Cells % 0 %; Platelet Count 202 10^3/cmm (130-400); Red Blood Count 2.72 10^6/uL (4.1-5.3); Red Cell Distribution Width 15.9 % (12.1-15.1); White Blood Count 9.5 10^3/uL (4.0-10.0)
[2022-03-05 12:45] LABS: Alanine Aminotransferase 109 U/L (0-41); Albumin Level 3.2 g/dL (3.5-5.2); Alkaline Phosphatase 75 U/L (40-130); Anion Gap 12.6 (5-19); Aspartate Amino Transferase 68 U/L (0-40); Blood Urea Nitrogen 35 mg/dL (8-23); Calcium 8.9 mg/dL (8.5-10.5); Carbon Dioxide 23 mmol/L (22-29); Chloride 103 mmol/L (98-107); Globulin 2.2 g/dL (1.3-4.6); Glomerular Filtration Rate 75.2 mL/min (90-130); Glucose 115 mg/dL (65-115); Osmolality Calculated 287 mOsm/kg (285-295); Potassium 4.6 mmol/L (3.5-5.1); Sodium 134 mmol/L (136-145); Total Bilirubin 0.2 mg/dL (0.15-1.2); Total Protein 5.4 g/dL (6.6-8.7)
== END ==
PROVIDERS: PCP Family Medicine; Visit Provider Family Medicine
DX: Z48.24 Encounter for aftercare following lung transplant (principal); R74.8 Abnormal levels of other serum enzymes
CPT/HCPCS: 36592; 80053; 80197; 85025

== ENCOUNTER 2022-03-21 08:09 | Outpatient (CLI) | payer OTHER, SELFPAY ==
[2022-03-21 10:40] LABS: Blood Urea Nitrogen 21 mg/dL (8-23); Calcium 9.1 mg/dL (8.5-10.5); Carbon Dioxide 27 mmol/L (22-29); Chloride 100 mmol/L (98-107); Glomerular Filtration Rate 55.6 mL/min (90-130); Glucose 75 mg/dL (65-115); Osmolality Calculated 282 mOsm/kg (285-295); Sodium 135 mmol/L (136-145)
== END 2022-03-21 08:10 | disposition home or self-care (01) ==
PROVIDERS: PCP Family Medicine; Visit Provider Nurse Practitioner Critical Care Medicine
DX: Z51.81 Encounter for therapeutic drug level monitoring (principal); D84.9 Immunodeficiency, unspecified
CPT/HCPCS: 80048; 80197

== ENCOUNTER 2022-04-01 09:04 | Outpatient (CLI) | payer OTHER, SELFPAY ==
--- NOTE | 2022-04-01 10:03 | XR_ITS ---
WS: [id number] Exam: XR KUB [id number] Date/Time of Exam: 04/01/2022 10:03 AM Reason For Exam: Urolithiasis Comparison 04/03/2021. No bowel obstruction or free air. No sign of organ enlargement. No calcifications visualized over the region of the kidneys. Surgical clips superimposing the bilateral scrotum. Bony elements are intact. XR/XR KUB [id number] IMPRESSION: 1. No acute abdominal finding.
== END 2022-04-01 09:05 | disposition home or self-care (01) ==
LOC: RAD 09:08
PROVIDERS: PCP Family Medicine; Visit Provider Urology
DX: N20.9 Urinary calculus, unspecified (principal)
CPT/HCPCS: 74018

== ENCOUNTER 2022-04-02 08:32 | Outpatient (CLI) | payer OTHER, SELFPAY ==
[2022-04-02 09:35] LABS: Basophils % 0.7 %; Eosinophils % 0.2 %; Hematocrit 26.8 % (42.0-52.0); Hemoglobin 8.1 g/dL (11.7-16.6); Lymphocytes # 1.6 10^3/uL (0.8-4.8); Lymphocytes % 39.2 %; Mean Corpuscular HGB Conc 30.2 g/dL (30.0-36.0); Mean Corpuscular Hemoglobin 28.5 pg (28.0-34.0); Mean Corpuscular Volume 94.4 fl (80-94); Mean Platelet Volume 9.2 fL (7.4-10.4); Monocytes # 0.2 10^3/uL (0.2-0.9); Monocytes % 5.3 %; Neutrophils # 2.14 10^3/uL (1.8-7.7); Neutrophils % 51.5 %; Nucleated Red Blood Cells % 0 %; Platelet Count 236 10^3/cmm (130-400); Red Blood Count 2.84 10^6/uL (4.1-5.3); Red Cell Distribution Width 15.1 % (12.1-15.1); White Blood Count 4.2 10^3/uL (4.0-10.0)
[2022-04-02 09:58] LABS: Alanine Aminotransferase 10 U/L (0-41); Albumin Level 3.3 g/dL (3.5-5.2); Alkaline Phosphatase 70 U/L (40-130); Anion Gap 14.8 (5-19); Aspartate Amino Transferase 17 U/L (0-40); Blood Urea Nitrogen 25 mg/dL (8-23); Calcium 8.8 mg/dL (8.5-10.5); Carbon Dioxide 25 mmol/L (22-29); Chloride 105 mmol/L (98-107); Globulin 2.8 g/dL (1.3-4.6); Glomerular Filtration Rate 55.6 mL/min (90-130); Glucose 105 mg/dL (65-115); Osmolality Calculated 295 mOsm/kg (285-295); Potassium 4.8 mmol/L (3.5-5.1); Sodium 140 mmol/L (136-145); Total Bilirubin 0.2 mg/dL (0.15-1.2); Total Protein 6.1 g/dL (6.6-8.7)
== END 2022-04-02 08:33 | disposition home or self-care (01) ==
LOC: LAB 08:48
PROVIDERS: PCP Family Medicine; Visit Provider Family Medicine
DX: D84.9 Immunodeficiency, unspecified (principal); Z51.81 Encounter for therapeutic drug level monitoring
CPT/HCPCS: 36415; 80053; 80197; 85025

== ENCOUNTER 2022-04-02 13:21 | Emergency (ER) | payer OTHER, SELFPAY ==
[2022-04-02] VITALS (64 sets, daily range): BP systolic 106–148; BP diastolic 58–90; PULSE 85–117; RESP 8–44; TEMP 36.6; O2SAT 90–100
--- NOTE | 2022-04-02 15:55 | CTR_ITS ---
PROCEDURE INFORMATION: Exam: CT Head Without Contrast Exam date and time: 04/02/2022 5:02 PM Age: 66 years old Clinical indication: Dizziness and other: Syncopal episode; Patient HX: Patient has a dual lung transplant. Had a syncopal episode; Additional info: Dizzyness TECHNIQUE: Imaging protocol: Computed tomography of the head without contrast. Radiation optimization: All CT scans at this facility use at least one of these dose optimization techniques: automated exposure control; mA and/or kV adjustment per patient size (includes targeted exams where dose is matched to clinical indication); or iterative reconstruction. COMPARISON: CT head wo con* [id number] 03/15/2021 1:08 PM RADIATION DOSE METRICS: Total DLP (mGy-cm): 1062.08 FINDINGS: Brain: No focal hemorrhage or midline shift is identified. The ventricles and parenchyma show mild atrophy and chronic bicerebral white matter ischemic change. Cerebral ventricles: No ventriculomegaly or evidence of hydrocephalus. Paranasal sinuses: Slight diffuse sinus mucosal thickening. Mastoid air cells: Visualized mastoid air cells are well aerated. Bones/joints: No displaced skull fracture is noted. Soft tissues: Unremarkable. Vasculature: Advanced diffuse vascular calcification noted. CT/CT head wo con* [id number] IMPRESSION: 1. No acute intracranial abnormality. 2. Mild age-related changes. No significant change has occurred from about a year ago.
--- NOTE | 2022-04-02 15:55 | XR_ITS ---
WS: [id number] Exam: XR chest 1V portable [id number] Date/Time of Exam: 04/02/2022 3:55 PM Reason For Exam: syncope Comparison 07/15/2021. There is patchy infiltrate and atelectasis in the middle and lower lobes the right lung. Small right pleural effusion noted. Left lung is clear. Marked cardiac enlargement. Signs of previous cardiac andrew tip. No pneumothorax. Surgical clips in the upper abdomen. Bony structures are intact. Fusion hardwa re partially visualized in the lower C-spine. XR/XR chest 1V portable [id number] IMPRESSION: 1. Infiltrate and atelectasis in the middle and lower lobes the right lung. Pro bable small right pleural effusion bordering the right lung. 2. Cardiac enlargement.
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
--- NOTE | 2022-04-02 16:04 | ECG_ITS ---
[facility] Test Date: 2022-04-02 Pat Name: Gregg Babcock Department: Room: Gender: Male Squirrel Man: : 1955 Requested By: Rey [employer] Order Number: [id number] Christy MD: Ric Rosa M.D. Measurements Intervals [place] Rate: 88 P: 23 GA: 164 QRS: -12 QRSD: 84 T: 14 QT: 354 QTc: 430 Interpretive Statements SINUS RHYTHM POSSIBLE ANTERIOR MYOCARDIAL INFARCTION , OF INDETERMINATE AGE [30 ms Q WAVE IN V3/V4, OR R < 0.2 mV IN V4] Compared to ECG 07/16/2021 02:58:44 Myocardial infarct finding now present Left-axis deviation no longer present T-wave abnormality no longer present Electronically Signed On 04-02-2022 17:46:19 OPHTHALMOLOGIST RETINA SPECIALIST by Ric Rosa M.D. [id number]
[2022-04-02 16:48] LABS: Basophils % 0.5 %; Hematocrit 25.2 % (42.0-52.0); Hemoglobin 7.7 g/dL (11.7-16.6); Lymphocytes # 1.1 10^3/uL (0.8-4.8); Lymphocytes % 28.2 %; Mean Corpuscular HGB Conc 30.6 g/dL (30.0-36.0); Mean Corpuscular Hemoglobin 28.8 pg (28.0-34.0); Mean Corpuscular Volume 94.4 fl (80-94); Mean Platelet Volume 8.9 fL (7.4-10.4); Monocytes # 0.2 10^3/uL (0.2-0.9); Monocytes % 4.3 %; Neutrophils # 2.22 10^3/uL (1.8-7.7); Neutrophils % 56.3 %; Nucleated Red Blood Cells % 0 %; Platelet Count 253 10^3/cmm (130-400); Red Blood Count 2.67 10^6/uL (4.1-5.3); Red Cell Distribution Width 14.9 % (12.1-15.1); White Blood Count 3.9 10^3/uL (4.0-10.0)
[2022-04-02 16:51] LABS: Slide Review Slide Review Perform
[2022-04-02 17:06] LABS: Alanine Aminotransferase 10 U/L (0-41); Albumin Level 3.5 g/dL (3.5-5.2); Alkaline Phosphatase 80 U/L (40-130); Anion Gap 15.1 (5-19); Aspartate Amino Transferase 11 U/L (0-40); Blood Urea Nitrogen 27 mg/dL (8-23); Calcium 8.9 mg/dL (8.5-10.5); Carbon Dioxide 23 mmol/L (22-29); Chloride 101 mmol/L (98-107); Globulin 2.8 g/dL (1.3-4.6); Glomerular Filtration Rate 55.6 mL/min (90-130); Glucose 120 mg/dL (65-115); Osmolality Calculated 284 mOsm/kg (285-295); Potassium 5.1 mmol/L (3.5-5.1); Sodium 134 mmol/L (136-145); Total Bilirubin 0.2 mg/dL (0.15-1.2); Total Protein 6.3 g/dL (6.6-8.7)
[2022-04-02] MEDS: sodium chloride 0.9% 1,000 ML 999 ML IV (17:40)
--- NOTE | 2022-04-02 19:20 | PC.NURSE ---
Attempted report, Mary Anne notified full time staff interpreter that pt is not shown accepted in system.
[2022-04-02] MEDS: lactated ringers 1,000 ML 125 ML IV (19:35)
--- NOTE | 2022-04-02 20:08 | PC.NURSE ---
Pt report called to Zena Huggins RN @ [place] [facility]
[2022-04-02 20:37] LABS: SARS Covid-2 Antigen negative (Negative)
--- NOTE | 2022-04-02 21:07 | PC.NURSE ---
[employer] [facility] arrived 2042, left 2055. Pt stable.
[2022-04-02] MEDS: LORazepam 2 mg/mL INJ 1 mL 1 MG IVP (21:08)
== END 2022-04-02 21:10 | disposition short-term general hospital (02) ==
PROVIDERS: Emergency Provider Emergency Medicine; PCP Family Medicine
DX: R55 Syncope and collapse (principal); Z94.2 Lung transplant status; E11.9 Type 2 diabetes mellitus without complications
CPT/HCPCS: 70450; 71045; 80053; 85025; 87426; 93005; 96361; 96374; 99285; J2060; J7030; J7120